=== PATIENT | female | born 1985 | race American Indian/Alaskan Native ===

== ENCOUNTER 2016-11-13 19:16 | Inpatient (IN) | payer MEDICAID ==
[2016-11-13 21:38] LABS: Basophils % (Auto) 1.4 % (0.0-1.8); Hematocrit 38.3 % (30.3-42.9); Hemoglobin 12.1 gm/dl (10.1-14.3); Mean Corpuscular HGB Conc 32 % (30-34); Mean Corpuscular Hemoglobin 31 pg (28-32); Mean Corpuscular Volume 97 fl (79-97); Platelet Count 286 K/mm3 (140-440); Red Blood Count 3.93 M/mm3 (3.65-5.03); Red Cell Distribution Width 17.8 % (13.2-15.2); White Blood Count 8.3 K/mm3 (4.5-11.0)
[2016-11-13 22:07] LABS: Albumin 3.7 g/dL (3.9-5); BUN/Creatinine Ratio 5.85; Bilirubin,Total 0.3 mg/dL (0.1-1.2); Calcium 8.4 mg/dL (8.4-10.2); Chloride 96.5 mmol/L (98-107); Total Protein 7.3 g/dL (6.3-8.2)
[2016-11-14] MEDS ORDERED: PROVENTIL IH ONE ×2 (03:51→04:01)
[2016-11-14] MEDS ORDERED: CALCIUM GLUCONATE 1,000 MG in NACL 0.9% 100 ML IV ONE (03:51)
[2016-11-14] MEDS ORDERED: D50W (25GM) IV ONE ×3 (03:52→07:24)
[2016-11-14] MEDS ORDERED: SODIUM BICARBONATE IV ONE (04:00)
[2016-11-14] MEDS ORDERED: SODIUM BICARBONATE 50 MEQ in NACL 0.9% 1000 ML 1,000 ML IV SCH (04:00)
--- NOTE | 2016-11-14 04:00 | Emergency Department Report ---
HPI - General Chief Complaint: Chest Pain Time Seen by Provider: 11/14/16 03:50 - HPI HPI: Room 23 The patient is a 31-year-old female presenting with a chief complaint of chest pain and shortness of breath. The patient has a history of end-stage renal disease and only received dialysis every Sunday and Sunday. The patient states she was not able to receive dialysis 2 days ago (Sunday secondary to the inclement weather. The patient states yesterday she developed left-sided chest pain that was sharp and intermittent in nature. Patient also developed intermittent shortness of breath. Location: Left chest Duration: Intermittent Since yesterday Quality: Sharp Severity: Currently 0/10 Modifying factors: [see above] Context: [see above] Mode of transportation: Unknown ED Past Medical Hx - Past Medical History Previous Medical History?: Yes Hx Hypertension: Yes Hx Heart Attack/AMI: Yes (one stent 2011) Hx Congestive Heart Failure: Yes Hx Renal Disease: Yes (hemodialysis ) Hx Sickle Cell Disease: ( ) Hx Arthritis: Yes Additional medical history: Lupus - Surgical History Past Surgical History?: Yes Hx Coronary Stent: Yes Hx Cholecystectomy: Yes Additional Surgical History: bilat total hips, right av fistula, - Family History Family history: no significant - Social History Smoking Status: Never Smoker Substance Use Type: None - Medications Home Medications: Home Medications Medication Instructions Recorded Confirmed Last Taken Type Aspirin [Aspirin TAB] 325 mg PO QDAY #30 tablet 06/24/15 09/26/16 1 Day Ago Rx Clopidogrel [Plavix] 75 mg PO DAILY #30 tablet 06/24/15 09/26/16 1 Day Ago Rx Sevelamer HCl [Renagel] 800 mg PO TIDWM #30 tablet 06/24/15 09/26/16 1 Day Ago Rx Carvedilol [Coreg] 25 mg PO BID #60 tablet 07/29/15 09/26/16 1 Day Ago Rx Hydroxychloroquine [Plaquenil] 200 mg PO QDAY tablet 07/29/15 09/26/16 1 Day Ago Rx cloNIDine [Catapres] 0.3 mg PO TID 30 Days 07/29/15 09/26/16 1 Day Ago Rx predniSONE [Deltasone] 10 mg PO QAM 09/23/15 09/26/16 1 Day Ago History Famotidine [Pepcid] 20 mg PO BID #60 tablet 09/26/16 Unknown Rx ED Review of Systems ROS: Stated complaint: CHEST PAIN Other details as noted in HPI Comment: All other systems reviewed and negative Constitutional: denies: chills, fever Eyes: denies: eye pain, eye discharge, vision change ENT: denies: ear pain, throat pain Respiratory: shortness of breath Cardiovascular: chest pain Endocrine: no symptoms reported Gastrointestinal: denies: abdominal pain, nausea, diarrhea Genitourinary: denies: urgency, dysuria, discharge Musculoskeletal: denies: back pain, joint swelling, arthralgia Skin: denies: rash, lesions Neurological: denies: headache, weakness, paresthesias Psychiatric: denies: anxiety, depression Hematological/Lymphatic: denies: easy bleeding, easy bruising Physical Exam - Physical Exam Vital Signs: Vital Signs 11/13/16 20:19 Temperature 98.0 F Pulse Rate 85 Respiratory 18 Rate Blood Pressure 161/113 O2 Sat by Pulse 100 Oximetry Physical Exam: GENERAL: The patient is well-developed well-nourished female lying on stretcher appearing to be in mild discomfort. [] HEENT: Normocephalic. Atraumatic. Extraocular motions are intact. Patient has moist mucous membranes. NECK: Supple. Trachea midline CHEST/LUNGS: Clear to auscultation. There is no respiratory distress noted. HEART/CARDIOVASCULAR: Regular. There is no tachycardia. There is no gallop rub or murmur. ABDOMEN: Abdomen is soft, nontender. Patient has normal bowel sounds. There is no abdominal distention. SKIN: There is no rash. There is no edema. There is no diaphoresis. NEURO: The patient is awake, alert, and oriented. The patient is cooperative. The patient has normal speech MUSCULOSKELETAL: There is no evidence of acute injury. ED Course Vital Signs 11/13/16 20:19 Temperature 98.0 F Pulse Rate 85 Respiratory 18 Rate Blood Pressure 161/113 O2 Sat by Pulse 100 Oximetry - Consultations Consultation #1: 11/14/16 04:00 Nephrology paged 04:00- H discussed with Dr. Molina. Will arrange for stat hemodialysis. Recommends giving Kayexalate 45 g in addition to previously ordered medications 11/14/16 04:02 ED Medical Decision Making - Lab Data Result diagrams: 11/13/16 21:17 11/13/16 21:17 Laboratory Tests 11/13/16 11/13/16 21:17 21:17 WBC 8.3 RBC 3.93 Hgb 12.1 Hct 38.3 MCV 97 MCH 31 MCHC 32 RDW 17.8 H Plt Count 286 Lymph % (Auto) 31.3 [place] % (Auto) 10.7 H Eos % (Auto) 1.0 Baso % (Auto) 1.4 Lymph # 2.6 Dickinson # 0.9 H Eos # 0.1 Baso # 0.1 Seg Neutrophils % 55.6 Seg Neutrophils # 4.6 Sodium 141 Potassium 8.0 H* Chloride 96.5 L Carbon Dioxide 23 Anion Gap 30 BUN 75 H Creatinine 12.8 H Estimated GFR 4 BUN/Creatinine Ratio 5.85 Glucose 80 Calcium 8.4 Total Bilirubin 0.3 AST 16 ALT 10 Alkaline Phosphatase 141 H Total Creatine Kinase 66 Troponin T 0.044 H Total Protein 7.3 Albumin 3.7 L Albumin/Globulin Ratio 1.0 Triglycerides 270 H Cholesterol 214 H LDL Cholesterol Direct 122 HDL Cholesterol 38 L Cholesterol/HDL Ratio 5.63 - EKG Data -: EKG Interpreted by Me EKG shows normal: sinus rhythm Rate: normal - EKG Data When compared to previous EKG there are: no significant change Interpretation: other (slightly peaked T waves) - Radiology Data Radiology results: image reviewed (chest x-ray) interpreted by me: X-ray-no focal infiltrates, no pneumothorax - Differential Diagnosis ACS, end-stage renal disease, hyperkalemia, Critical Care Time: Yes Critical care time in (mins) excluding proc time.: 30 Critical care attestation.: If time is entered above; I have spent that time in minutes in the direct care of this critically ill patient, excluding procedure time. ED Disposition Clinical Impression: ESRD needing dialysis, Acute hyperkalemia, Chest pain in adult Disposition: OP ADMITTED IP TO THIS HOSP Is pt being admited?: Yes Does the pt Need Aspirin: No Condition: Serious Instructions: Chest Pain (ED) Referrals: EDGARD MUNOZ [Other] - 3-5 Days Time of Disposition: 04:10 (hospitalist paged)
[2016-11-14] MEDS ORDERED: KAYEXALATE PO ONE (04:03)
--- NOTE | 2016-11-14 04:59 | History and Physical Report ---
History of Present Illness Date of examination: 11/14/16 History of present illness: 29-year-old woman with a history of CAD, hypertension, CHF, hypertension, lupus , end-stage renal disease on dialysis, Sunday, and Sunday came to the emergency room with complaints of chest pain. Pain is in the left substernal area which she describes as a sharp pain, intermittent in nature lasting for 5 minutes, intensity 5/10, no radiatiion, and she cannot identify exacerbating or relieving factors. She took advil without relief. She admits to nausea, vomiting, shortness of breath, no diaphoresis or palpitation. Old records reviewed showed she had a cardiac cath in 2014 which showed patent stent. Her lasty dialysis was . Patient denies any abdominal pain, no hematochezia. No dysuria or frequency or rash or pruritus or anxiety or depression or seizure or focal weakness. No hot or cold intolerance or polydipsia polyuria, no easy bruisability or bleeding from mucosal membranes. No fever no chills, no earache or tinnitus. Other review of system is negative. PAST SURGICAL HISTORY: AV fistula, hip replacement 3, cholecystectomy, hernia repair, SOCIAL HISTORY: Denies alcohol, tobacco, drugs FAMILY HISTORY: Hypertension, diabetes Medications and Allergies Allergies Allergy/AdvReac Type Severity Reaction Status Date / Time hydrocodone bitartrate Allergy Itching Verified 05/15/16 02:00 [From Vicodin] morphine Allergy Itching Verified 05/15/16 02:00 tramadol Allergy Hives Verified 05/15/16 02:00 metoclopramide HCl AdvReac Unknown Verified 05/15/16 02:00 [From Reglan] Home Medications Medication Instructions Recorded Confirmed Last Taken Type Aspirin [Aspirin TAB] 325 mg PO QDAY #30 tablet 06/24/15 09/26/16 1 Day Ago Rx Clopidogrel [Plavix] 75 mg PO DAILY #30 tablet 06/24/15 09/26/16 1 Day Ago Rx Sevelamer HCl [Renagel] 800 mg PO TIDWM #30 tablet 06/24/15 09/26/16 1 Day Ago Rx Carvedilol [Coreg] 25 mg PO BID #60 tablet 07/29/15 09/26/16 1 Day Ago Rx Hydroxychloroquine [Plaquenil] 200 mg PO QDAY tablet 07/29/15 09/26/16 1 Day Ago Rx cloNIDine [Catapres] 0.3 mg PO TID 30 Days 07/29/15 09/26/16 1 Day Ago Rx predniSONE [Deltasone] 10 mg PO QAM 09/23/15 09/26/16 1 Day Ago History Famotidine [Pepcid] 20 mg PO BID #60 tablet 09/26/16 Unknown Rx Exam - Physical Exam Narrative exam: Gen. appearance: Patient lying in bed, no apparent distress HEENT: Normocephalic, atraumatic, pupils equally round and reactive to light, extraocular movement intact, and no sclericterus,. No JVD or thyromegaly or nodule,neck supple, no carotid bruit ,mucous membranes moist, no exudate or erythema Heart: S1, S2, regular rate and rhythm Lungs: Clear to auscultation bilaterally, breathing comfortable Abdomen: Positive bowel sounds, nontender, nondistended, no organomegaly Extremity: No edema, cyanosis, clubbing Skin: No rash, nodules, warm, dry Neuro: Oriented 3, cranial nerves II-12 intact, speech is fluent, motor and sensory intact - Constitutional Vitals: Temp Pulse Resp BP Pulse Ox 98.0 F 68 16 161/113 100 11/13/16 20:19 11/14/16 04:20 11/14/16 04:20 11/13/16 20:19 11/13/16 20:19 Results - Labs CBC & Chem 7: 11/13/16 21:17 11/13/16 21:17 Labs: Abnormal lab results 11/13/16 11/13/16 Range/Units 21:17 21:17 RDW 17.8 H (13.2-15.2) % [place] % (Auto) 10.7 H (0.0-7.3) % [place] # 0.9 H (0.0-0.8) K/mm3 Potassium 8.0 H* (3.6-5.0) mmol/L Chloride 96.5 L (98-107) mmol/L BUN 75 H (7-17) mg/dL Creatinine 12.8 H (0.7-1.2) mg/dL Alkaline Phosphatase 141 H (35-129) units/L Troponin T 0.044 H (0.00-0.029) ng/mL Albumin 3.7 L (3.9-5) g/dL Triglycerides 270 H (2-149) mg/dL Cholesterol 214 H (50-199) mg/dL HDL Cholesterol 38 L (40-59) mg/dL - Imaging and Cardiology EKG: image reviewed (nsr, 86, peaked t, read by me) Chest x-ray: image reviewed (nad,rad by me) Assessment and Plan Severe Hyperkalemia needing urgent dialysis ESRD, need dialysis Unstable angina CAD Hypertension, uncontrolled Lupus CHF, stable Admit to medicine Renal is consulted for emergent dialysis, status post hyperkalemia cocktail Give iv dilaudid, asa, consult cardiology Check cardiac enzymes, stress test Continue appropiate outpatient medications Start dvt prophalaxis
[2016-11-14] MEDS ORDERED: DULCOLAX PR PRN (06:20)
[2016-11-14] MEDS ORDERED: TYLENOL PO PRN (06:20)
--- NOTE | 2016-11-14 06:33 | Admit Criteria Form ---
Admission Criteria Documentation: HYPONATREMIA; HYPERNATREMIA; HYPOKALEMIA; HYPERKALEMIA; HYPOCALCEMIA; HYPERCALCEMIA Clinical Indications for Inpatient Care (Place 'X' for any and all applicable criteria): Ongoing inpatient care may be indicated for ANY ONE of the following [G](1)(2)(3 )(5): [ ]I. Hyponatremia with ANY ONE of the following: [ ]a) Sodium less than 130 mEq/L (mmol/L) (new) (6)(22) [ ]b) Sodium less than 135 mEq/L (mmol/L) with ANY ONE of the following: [ ]i) Severe medical etiology requiring inpatient management (eg, heart failure, hypovolemia) [ ]ii) Altered mental status [ ]iii) Seizures [ ]II. Hypernatremia with ANY ONE of the following: [ ]a) Sodium greater than 155 mEq/L (mmol/L) [ ]b) Sodium greater than 150 mEq/L (mmol/L) with ANY ONE of the following: [ ] i) Altered mental status [ ]ii) Seizures [ ]iii) Severe medical etiology (eg, hypovolemia, diabetes insipidus) [ ]iv) Severe weakness [ ]v) Severe medical etiology (eg, hemolysis, infection, drug overdose) [ ]III. Hypokalemia with ANY ONE of the following: [ ]a) Potassium less than 2.5 mEq/L (mmol/L) despite outpatient and emergency treatment [ ]b) Potassium less than 3.0 mEq/L (mmol/L) with ANY ONE of the following: [ ]i) Weakness [ ]ii) Cardiac abnormality (eg, arrhythmia, conduction disturbance) [ ]iii) Cardiac ischemia [ ]iv) Ileus [ ]v) Ongoing medical cause requiring inpatient management. ( e.g., acute renal wasting, SIADH) [ ]vi) Other severe symptoms [X ] IV. Hyperkalemia with ANY ONE of the following: [X ]a) Potassium greater than 6.5 mEq/L (mmol/L) [ ]b) Potassium greater than 5 mEq/L (mmol/L) with ANY ONE of the following: [ ]i) Severe ECG findings [H] [ ]ii) Acute worsening of renal failure (creatinine greater than 2.5 mg/dL (221 micromoles/L) or significant elevation for age and size) [ ] V. Hypocalcemia with ANY ONE of the following: [ ]a) Calcium less than 7 mg/dL (1.75 mmol/L) despite outpatient and emergency treatment(19) [ ]b) Calcium less than 8 mg/dL (2 mmol/L) with significant symptoms or findings; examples include: [ ]i) Cardiac abnormality (eg, arrhythmia or conduction disturbance) [ ]ii) Altered mental status [ ]iii) Seizures [ ]iv) Breathing difficulty [ ]v) Muscle spasms [ ]. Hypercalcemia with ANY ONE of the following: [ ]a) Calcium greater than 14 mg/dL (3.5 mmol/L) [ ]b) Calcium greater than 12 mg/dL (3 mmol/L) with ANY ONE of the following: [ ]i) Significant dehydration or hypovolemia as indicated by ANY ONE of the following(2): [ ]1. Clinically significant dehydration as indicated by ANY ONE of the following: [ ]A. Acute loss of weight from baseline (5% of body weight in adults, 9% in pediatric patients) [ ]B. Hemodynamic instability [ ]C. Acute renal failure [ ]D. Serum sodium greater than 150 mEq/L (mmol/L) [ ]2) Dehydration that is persistent indicated by ALL of the following: [ ]A. Oral rehydration therapy not tolerated or insufficient to adequately correct dehydration [ ]B. Appropriate intravenous treatment (eg, fluids ) does not readily correct dehydration ie, after 12 to 24 hours of treatment) [ ]ii) Significant symptoms or findings; examples include: [ ]1) Altered mental status [ ]2) Cardiac abnormality (eg, arrhythmia, conduction disturbance) [ ]3) Cardiac abnormality (eg, arrhythmia, conduction disturbance) The original [email or web address] content created by [employer] has been revised. The portions of the content which have been revised are identified through the use of italic text or in bold, and [facility] has neither reviewed nor approved the modified material. All other unmodified content is copyright [facility] Please see references footnoted in the original [facility] [employer] edition 2016 Admission Criteria Met: Yes
[2016-11-14] MEDS: DILAUDID IV PRN ×4 (06:38→19:59)
[2016-11-14] MEDS: ZOFRAN IV PRN (06:38)
[2016-11-14 06:45] LABS: Bilirubin,Urine NEG (Negative); Blood,Urine LG (Negative); Ketones,Urine NEG (Negative); Leukocyte Esterase,Urine TR (Negative); Nitrite,Urine NEG (Negative); Urobilinogen,Urine < 2.0 mg/dL (<2.0)
--- NOTE | 2016-11-14 07:47 | XRay Report ---
AP CHEST: HISTORY: chest pain AP view of the chest demonstrates a normal mediastinal and cardiac contour with clear lungs and normal bony and soft tissue structures. IMPRESSION: Unremarkable AP chest.
[2016-11-14] MEDS ORDERED: NON-FORMULARY (Sevelamer Hcl [Renagel] 800 MG) PO SCH (08:00)
--- NOTE | 2016-11-14 08:23 | Event Note ---
Date: 11/14/16 Patient seen and evaluated medical records reviewed Admitted this morning with chest pain and worsening shortness of breath Schedule for hemodialysis today and stress test tomorrow to rule out reversible ischemia Agreed with current management, plan of care discussed with the patient as well as the nurse
[2016-11-14 09:15] LABS: BUN/Creatinine Ratio 5.95; Calcium 8.5 mg/dL (8.4-10.2); Chloride 95.9 mmol/L (98-107)
[2016-11-14 09:19] LABS: Potassium 6.6 mmol/L (3.6-5.0)
[2016-11-14 09:35] LABS: Creatine Kinase MB 1.6 ng/mL (0.0-4.0)
--- NOTE | 2016-11-14 09:59 | Consultation ---
History of Present Illness Consult date: 11/14/16 Requesting physician: MILAGROS HERNANDEZ Consult reason: chest pain History of present illness: The patient is a 31 year old female with a history of CAD s/p PCI, HTN, ESRD on HD, lupus who presented with complaints of intermittent left sided chest pain that began yesterday. The pain is non-radiating, described as "sharp." Associated with shortness of breath, nausea, vomiting and diaphoresis. She missed dialysis on Sunday due to the weather. Potassium on admission was 8.0. Troponin level is mildly elevated. In 06/2014, she underwent cardiac cath and PCI of 90% mid LAD lesion with a STEVEN at [facility]. Repeat cath in 06/2015 showed patent LAD stent and otherwise normal coronaries. Echo done 08/2016 showed EF 55-60%, impaired relaxation, RVSP 38mmHg. Past History Past Medical History: CAD, dialysis, ESRD, hypertension, other (Lupus) Past Surgical History: cholecystectomy, , hernia repair, PTCA, Other ( 3 hip surgeries, lymph node removal, AV fistula) Social history: denies: smoking, alcohol abuse, prescription drug abuse, IV drug use Family history: no significant family history Medications and Allergies Allergies Allergy/AdvReac Type Severity Reaction Status Date / Time hydrocodone bitartrate Allergy Itching Verified 05/15/16 02:00 [From Vicodin] morphine Allergy Itching Verified 05/15/16 02:00 tramadol Allergy Hives Verified 05/15/16 02:00 metoclopramide HCl AdvReac Unknown Verified 05/15/16 02:00 [From Reglan] Home Medications Medication Instructions Recorded Confirmed Last Taken Type Aspirin [Aspirin TAB] 325 mg PO QDAY #30 tablet 06/24/15 09/26/16 1 Day Ago Rx Clopidogrel [Plavix] 75 mg PO DAILY #30 tablet 06/24/15 09/26/16 1 Day Ago Rx Sevelamer HCl [Renagel] 800 mg PO TIDWM #30 tablet 06/24/15 09/26/16 1 Day Ago Rx Carvedilol [Coreg] 25 mg PO BID #60 tablet 07/29/15 09/26/16 1 Day Ago Rx Hydroxychloroquine [Plaquenil] 200 mg PO QDAY tablet 07/29/15 09/26/16 1 Day Ago Rx cloNIDine [Catapres] 0.3 mg PO TID 30 Days 07/29/15 09/26/16 1 Day Ago Rx predniSONE [Deltasone] 10 mg PO QAM 09/23/15 09/26/16 1 Day Ago History Famotidine [Pepcid] 20 mg PO BID #60 tablet 09/26/16 Unknown Rx Active Meds: Active Medications Acetaminophen (Tylenol) 650 mg PO Q4H PRN PRN Reason: Pain MILD(1-3)/Fever >100.5/MEJIA Aspirin (Aspirin) 325 mg PO QDAY [facility] Bisacodyl (Dulcolax) 10 mg [place] QDAY PRN PRN Reason: Constipation unrelieved by [facility] Carvedilol (Coreg) 25 mg PO BID [facility] Clonidine HCl (Catapres) 0.3 mg PO TID [facility] Clopidogrel Bisulfate (Plavix) 75 mg PO DAILY [facility] Enoxaparin Sodium (Lovenox) 30 mg SUB-Q QDAY [facility] Famotidine (Pepcid) 20 mg PO QDAY [facility] Hydromorphone HCl (Dilaudid) 1 mg IV Q4H PRN PRN Reason: pain Last Admin: 11/14/16 06:38 Dose: 1 mg Hydroxychloroquine Sulfate (Plaquenil) 200 mg PO QDAY [facility] Ondansetron HCl (Zofran) 4 mg IV Q8H PRN PRN Reason: N/V unrelieved by Reglan Last Admin: 11/14/16 06:38 Dose: 4 mg Prednisone (Deltasone) 10 mg PO QAM [facility] Sevelamer Carbonate (Renvela) 800 mg PO TIDWM [facility] Review of Systems Constitutional: no fever, no chills Ears, nose, mouth and throat: no nasal congestion, no nasal discharge, no sinus pressure Cardiovascular: chest pain, shortness of breath, no palpitations Respiratory: shortness of breath, no cough, no congestion, no wheezing Gastrointestinal: nausea, vomiting, diarrhea, no abdominal pain Genitourinary Female: no dysuria, no urgency Musculoskeletal: no neck stiffness, no neck pain, no myalgias Integumentary: no rash, no pruritis Neurological: no parathesias, no numbness, no tingling, no headaches Endocrine: no cold intolerance, no heat intolerance Hematologic/Lymphatic: no easy bruising, no easy bleeding Allergic/Immunologic: no urticaria, no wheezing Physical Examination Vital Signs Temp Pulse Resp BP Pulse Ox 98.0 F 85 18 161/113 100 11/13/16 20:19 11/13/16 20:19 11/13/16 20:19 11/13/16 20:19 11/13/16 20:19 General appearance: no acute distress HEENT: Positive: Normocephaly, Mucus Membranes Moist Neck: Positive: neck supple, trachea midline Cardiac: Positive: Reg Rate and Rhythm, S1/S2, Systolic Murmur Lungs: Positive: clear to auscultation Neuro: Positive: Grossly Intact Abdomen: Positive: Soft, Active Bowel Sounds. Negative: Tender Skin: Positive: Clear. Negative: Rash Musculoskeletal: Normal Range of Motion Extremities: Present: edema (trace-bilateral lower legs) Results 11/13/16 21:17 11/14/16 08:32 Cardiac Enzymes 11/14/16 Range/Units 08:32 CK-MB (CK-2) 1.6 (0.0-4.0) ng/mL Comprehensive Metabolic Panel 11/14/16 Range/Units 08:32 Potassium 6.6 H* (3.6-5.0) mmol/L Carbon Dioxide 17 L (22-30) mmol/L BUN 75 H (7-17) mg/dL Creatinine 12.6 H (0.7-1.2) mg/dL Glucose 103 H (65-100) mg/dL Calcium 8.5 (8.4-10.2) mg/dL - Imaging and Cardiology Echo: report reviewed (08/2016: EF 55-60%, impaired relaxation, RVSP 38mmHg) EKG: image reviewed EKG interpretations - Telemetry EKG Rhythm: Sinus Rhythm - EKG Sinus rhythms and dysrhythmias: sinus rhythm Assessment and Plan Chest pain Lexiscan thallium stress test in am NSTEMI type II troponin leak likely due to ESRD Hyperkalemia dialysis per nephrology CAD s/p PCI of mid LAD 06/2014 [facility] 06/2015: patent LAD stent, otherwise normal coronaries Echo 08/2016: EF 55-60%, impaired relaxation, RVSP 38 mmHg continue ASA, Plavix, add Lipitor Hypertension continue coreg, clonidine Hyperlipidemia add Lipitor Lupus Awaiting emergent dialysis. Will proceed with stress test in am if potassium level is adequately corrected. The patient has been seen in conjunction with Dr. Dooley who agrees with the assessment and plan of care. Thank you Dr. Phan for allowing us to participate in the care of this patient.
[2016-11-14] MEDS ORDERED: DELTASONE PO SCH (10:00)
[2016-11-14] MEDS ORDERED: PEPCID PO SCH (10:00)
[2016-11-14] MEDS: CATAPRES PO SCH ×3 (10:18→20:00)
[2016-11-14] MEDS: RENVELA PO SCH ×3 (10:18→16:24)
--- NOTE | 2016-11-14 10:21 | Consultation ---
History of Present Illness - Reason for Consult Consult date: 11/14/16 end stage renal disease, hyperkalemia - History of Present Illness patient with h/o ESRD on HD for the last 8 years every TTS last treatment was , she was not able to make to her last treatment due to the weather, she came to the ED yesterday because she missed her last treatment and feeling SOB, in the ED she was noted to have elevated BP and hyperkalemia, she was treated medically for hyperkalemia and renal consult was requested. Past History Past Medical History: ESRD, hypertension Medications and Allergies Allergies Allergy/AdvReac Type Severity Reaction Status Date / Time hydrocodone bitartrate Allergy Itching Verified 05/15/16 02:00 [From Vicodin] morphine Allergy Itching Verified 05/15/16 02:00 tramadol Allergy Hives Verified 05/15/16 02:00 metoclopramide HCl AdvReac Unknown Verified 05/15/16 02:00 [From Reglan] Home Medications Medication Instructions Recorded Confirmed Last Taken Type Aspirin [Aspirin TAB] 325 mg PO QDAY #30 tablet 06/24/15 09/26/16 1 Day Ago Rx Clopidogrel [Plavix] 75 mg PO DAILY #30 tablet 06/24/15 09/26/16 1 Day Ago Rx Sevelamer HCl [Renagel] 800 mg PO TIDWM #30 tablet 06/24/15 09/26/16 1 Day Ago Rx Carvedilol [Coreg] 25 mg PO BID #60 tablet 07/29/15 09/26/16 1 Day Ago Rx Hydroxychloroquine [Plaquenil] 200 mg PO QDAY tablet 07/29/15 09/26/16 1 Day Ago Rx cloNIDine [Catapres] 0.3 mg PO TID 30 Days 07/29/15 09/26/16 1 Day Ago Rx predniSONE [Deltasone] 10 mg PO QAM 09/23/15 09/26/16 1 Day Ago History Famotidine [Pepcid] 20 mg PO BID #60 tablet 09/26/16 Unknown Rx Active Meds: Active Medications Acetaminophen (Tylenol) 650 mg PO Q4H PRN PRN Reason: Pain MILD(1-3)/Fever >100.5/MEJIA Aspirin (Aspirin) 325 mg PO QDAY ADIA Bisacodyl (Dulcolax) 10 mg VA QDAY PRN PRN Reason: Constipation unrelieved by MOM Carvedilol (Coreg) 25 mg PO BID ADIA Clonidine HCl (Catapres) 0.3 mg PO TID ADIA Clopidogrel Bisulfate (Plavix) 75 mg PO DAILY ADIA Enoxaparin Sodium (Lovenox) 30 mg SUB-Q QDAY ADIA Famotidine (Pepcid) 20 mg PO QDAY ADIA Hydromorphone HCl (Dilaudid) 1 mg IV Q4H PRN PRN Reason: pain Last Admin: 11/14/16 06:38 Dose: 1 mg Hydroxychloroquine Sulfate (Plaquenil) 200 mg PO QDAY ADIA Ondansetron HCl (Zofran) 4 mg IV Q8H PRN PRN Reason: N/V unrelieved by Reglan Last Admin: 11/14/16 06:38 Dose: 4 mg Prednisone (Deltasone) 10 mg PO QAM ADIA Sevelamer Carbonate (Renvela) 800 mg PO TIDWM ADIA Review of Systems All systems: negative (weakness, SOB) Exam - Vital Signs Vital signs: Vital Signs Temp Pulse Resp BP Pulse Ox 98.0 F 85 18 161/113 100 11/13/16 20:19 11/13/16 20:19 11/13/16 20:19 11/13/16 20:19 11/13/16 20:19 - General Appearance General appearance: well-developed, well-nourished, obese EENT: ATNC, PERRL, mucous membranes moist Neck: Present: neck supple. Absent: Bruit Respiratory: Clear to Ascultation Heart: regular, S1S2 Gastrointestinal: Present: normoactive bowel sounds, obese. Absent: tenderness , distended, masses Integumentary: no rash, warm and dry Neurologic: no focal deficit, no asterixis, alert and oriented x3 Musculoskeletal: Present: other (+ thrill and bruit R AVF, no edema in BLE) Psychiatric: mood/affect appropriate, cooperative Results - Lab Results 11/13/16 21:17 11/14/16 08:32 Most recent lab results Calcium 8.5 mg/dL (8.4-10.2) 11/14/16 08:32 Assessment and Plan (1) ESRD on HD STAT hD ordered for clearance and volume removal, UF goal 4-5 L as tolerated will assess dialysis needs daily, most likely will need another tx tomorrow renally dose meds renal diet strict I&O daily weights (2) Hyperkalemia STAT HD as above low K diet (3) HTN UF as above will adjust BP meds as neede
[2016-11-14] MEDS: COREG PO SCH ×2 (11:00→21:56)
[2016-11-14] MEDS ORDERED: BENADRYL IV ONE (11:30)
[2016-11-14] MEDS ORDERED: BENADRYL PO PRN (16:07)
[2016-11-14] MEDS: PLAQUENIL PO SCH (16:23)
[2016-11-14] MEDS: LOVENOX SUB-Q SCH (16:23)
[2016-11-14] MEDS: DELTASONE PO SCH (16:23)
[2016-11-14] MEDS: PLAVIX PO SCH (16:24)
[2016-11-14] MEDS: PEPCID PO SCH (16:24)
[2016-11-14 16:26] LABS: Creatine Kinase MB 1.6 ng/mL (0.0-4.0)
[2016-11-14] MEDS: PERCOCET 5/325 PO PRN ×2 (16:47→23:09)
[2016-11-15] MEDS: DILAUDID IV PRN ×5 (00:18→22:30)
[2016-11-15] MEDS: ZOFRAN IV PRN ×2 (04:29→22:31)
[2016-11-15 06:54] LABS: Hematocrit 39.2 % (30.3-42.9); Hemoglobin 12.5 gm/dl (10.1-14.3); Mean Corpuscular HGB Conc 32 % (30-34); Mean Corpuscular Hemoglobin 31 pg (28-32); Mean Corpuscular Volume 98 fl (79-97); Red Blood Count 4.02 M/mm3 (3.65-5.03)
[2016-11-15 07:29] LABS: BUN/Creatinine Ratio 4.38; Calcium 9.3 mg/dL (8.4-10.2); Chloride 95.1 mmol/L (98-107)
[2016-11-15 07:30] LABS: Potassium 8.1 mmol/L (3.6-5.0)
--- NOTE | 2016-11-15 07:58 | Progress Note ---
Assessment and Plan Assessment and plan: --Severe Hyperkalemia Calcium chloride , Kayexalate , albuterol inhalation Hemodialysis --ESRD, on dialysis, nephrology following --Unstable angina Cardiology following, stress test rescheduled secondary to hyperkalemia --History of CAD, stable --Hypertension, uncontrolled continue current antihypertensives and when necessary medications, --Lupus; stable --DVT prophylaxis with heparin History Interval history: Patient seen and evaluated, he should schedule for stress test However in view of severe hypokalemia stress test was canceled Patient feels better denies any chest pain or shortness of breath Alert awake oriented 3 not in acute distress Hospitalist Physical - Constitutional Vitals: Temp Pulse Resp BP Pulse Ox 98.2 F 83 21 130/85 100 11/15/16 04:00 11/15/16 04:00 11/15/16 04:00 11/15/16 04:00 11/15/16 04:00 General appearance: Present: no acute distress, well-nourished - EENT Eyes: Present: PERRL, EOM intact - Neck Neck: Present: supple, normal ROM - Respiratory Respiratory effort: normal Respiratory: bilateral: diminished, rales, negative: rhonchi, wheezing - Cardiovascular Rhythm: regular Heart Sounds: Present: S1 & S2 - Extremities Extremities: no ischemia, pulses intact, pulses symmetrical Peripheral Pulses: within normal limits - Abdominal General gastrointestinal: soft, non-tender, non-distended, normal bowel sounds - Integumentary Integumentary: Present: clear, warm - Psychiatric Psychiatric: appropriate mood/affect, cooperative - Neurologic Neurologic: CNII-XII intact, moves all extremities Results - Labs CBC & Chem 7: 11/15/16 06:11 11/15/16 09:35 Labs: Laboratory Last Values WBC 8.3 K/mm3 (4.5-11.0) 11/13/16 21:17 RBC 4.02 M/mm3 (3.65-5.03) 11/15/16 06:11 Hgb 12.5 gm/dl (10.1-14.3) 11/15/16 06:11 Hct 39.2 % (30.3-42.9) 11/15/16 06:11 MCV 98 fl (79-97) H 11/15/16 06:11 MCH 31 pg (28-32) 11/15/16 06:11 MCHC 32 % (30-34) 11/15/16 06:11 RDW 18.0 % (13.2-15.2) H 11/15/16 06:11 Plt Count 286 K/mm3 (140-440) 11/13/16 21:17 Lymph % (Auto) Children[employer] Service Supervisor 11/15/16 06:11 [place] % (Auto) Children[employer]S Service Supervisor 11/15/16 06:11 Eos % (Auto) Children[employer]S Service Supervisor 11/15/16 06:11 Baso % (Auto) Children[employer]S Service Supervisor 11/15/16 06:11 Lymph # Children[employer]S Service Supervisor 11/15/16 06:11 [place] # Children'S Service Supervisor 11/15/16 06:11 Eos # Children'S Service Supervisor 11/15/16 06:11 Baso # Children[employer]S Service Supervisor 11/15/16 06:11 Seg Neutrophils % Children'S Service Supervisor 11/15/16 06:11 Seg Neutrophils # Children'S Service Supervisor 11/15/16 06:11 Sodium 135 mmol/L (137-145) L 11/15/16 06:11 Potassium 8.1 mmol/L (3.6-5.0) H* D 11/15/16 06:11 Chloride 95.1 mmol/L (98-107) L 11/15/16 06:11 Carbon Dioxide 18 mmol/L (22-30) L 11/15/16 06:11 Anion Gap 30 mmol/L 11/15/16 06:11 BUN 32 mg/dL (7-17) H 11/15/16 06:11 Creatinine 7.3 mg/dL (0.7-1.2) H 11/15/16 06:11 Estimated GFR 8 ml/min 11/15/16 06:11 BUN/Creatinine Ratio 4.38 % 11/15/16 06:11 Glucose 78 mg/dL (65-100) 11/15/16 06:11 POC Glucose 100 (70-105) 11/14/16 21:34 Calcium 9.3 mg/dL (8.4-10.2) 11/15/16 06:11 Total Bilirubin 0.3 mg/dL (0.1-1.2) 11/13/16 21:17 AST 16 units/L (5-40) 11/13/16 21:17 ALT 10 units/L (7-56) 11/13/16 21:17 Alkaline Phosphatase 141 units/L (35-129) H 11/13/16 21:17 Total Creatine Kinase 64 units/L (30-135) 11/14/16 15:43 CK-MB (CK-2) 1.6 ng/mL (0.0-4.0) 11/14/16 15:43 CK-MB (CK-2) Rel Index 2.5 (0-4) 11/14/16 15:43 Troponin T 0.051 ng/mL (0.00-0.029) H D 11/14/16 15:43 Total Protein 7.3 g/dL (6.3-8.2) 11/13/16 21:17 Albumin 3.7 g/dL (3.9-5) L 11/13/16 21:17 Albumin/Globulin Ratio 1.0 % 11/13/16 21:17 Triglycerides 270 mg/dL (2-149) H 11/13/16 21:17 Cholesterol 214 mg/dL (50-199) H 11/13/16 21:17 LDL Cholesterol Direct 122 mg/dL (50-130) 11/13/16 21:17 HDL Cholesterol 38 mg/dL (40-59) L 11/13/16 21:17 Cholesterol/HDL Ratio 5.63 % 11/13/16 21:17 Urine Color Red (Yellow) 11/14/16 06:13 Urine Turbidity Cloudy (Clear) 11/14/16 06:13 Urine pH 8.0 (5.0-7.0) H 11/14/16 06:13 Ur Specific [place] 1.010 (1.003-1.030) 11/14/16 06:13 Urine Protein 100 mg/dl mg/dL (Negative) 11/14/16 06:13 Urine Glucose (UA) Neg mg/dL (Negative) 11/14/16 06:13 Urine Ketones Neg mg/dL (Negative) 11/14/16 06:13 Urine Blood Lg (Negative) 11/14/16 06:13 Urine Nitrite Neg (Negative) 11/14/16 06:13 Urine Bilirubin Neg (Negative) 11/14/16 06:13 Urine Urobilinogen < 2.0 mg/dL (<2.0) 11/14/16 06:13 Ur Leukocyte Esterase Tr (Negative) 11/14/16 06:13 Urine WBC (Auto) 5.0 /HPF (0.0-6.0) 11/14/16 06:13 Urine RBC (Auto) 3.0 /HPF (0.0-6.0) 11/14/16 06:13 U Epithel Cells (Auto) 56.0 /HPF (0-13.0) H 11/14/16 06:13 Amorphous Crystals 3+ 11/14/16 06:13 Urine HCG, Qual Negative (Negative) 11/14/16 06:13
[2016-11-15] MEDS ORDERED: KAYEXALATE PO ONE (08:00)
[2016-11-15] MEDS: RENVELA PO SCH ×3 (08:08→17:59)
[2016-11-15] MEDS: CATAPRES PO SCH ×3 (08:08→21:15)
[2016-11-15] MEDS ORDERED: PROVENTIL IH ONE (08:30)
[2016-11-15] MEDS ORDERED: CALCIUM CHLORIDE 1,000 MG in NACL 0.9% 100 ML IV ONE (08:30)
--- NOTE | 2016-11-15 08:47 | Progress Note ---
Assessment and Plan Chest pain unable to complete stress test due to hyperkalemia NSTEMI type II troponin leak likely due to ESRD Hyperkalemia dialysis per nephrology CAD s/p PCI of mid LAD 06/2014 LHC 06/2015: patent LAD stent, otherwise normal coronaries Echo 08/2016: EF 55-60%, impaired relaxation, RVSP 38 mmHg continue ASA, Plavix, add Lipitor Hypertension continue coreg, clonidine Hyperlipidemia add Lipitor Lupus Unable to complete stress test this morning as potassium level remains elevated. Continue medical management. The patient has been seen in conjunction with Dr. Dooley who agrees with the assessment and plan of care. Subjective Date of service: 11/15/16 Principal diagnosis: chest pain Interval history: The patient is resting in bed. She continues to c/o chest pain. Sinus rhythm on the monitor. Unable to perform stress test this morning as potassium level remains high. Objective Last Vital Signs Temp 97.4 F L 11/15/16 08:00 Pulse 69 11/15/16 08:55 Resp 18 11/15/16 08:55 BP 119/79 11/15/16 08:00 Pulse Ox 98 11/15/16 08:52 - Physical Examination General: No Apparent Distress HEENT: Positive: Normocephaly, Mucus Membranes Moist Neck: Positive: neck supple, trachea midline Cardiac: Positive: Reg Rate and Rhythm, S1/S2 Lungs: Positive: clear to auscultation Neuro: Positive: Grossly Intact Abdomen: Positive: Soft, Active Bowel Sounds. Negative: Tender Skin: Positive: Clear. Negative: Rash Musculoskeletal: Normal Range of Motion Extremities: Present: edema (trace-bilateral lower legs) - Labs and Meds Cardiac Enzymes 11/14/16 11/14/16 Range/Units 08:32 15:43 CK-MB (CK-2) 1.6 1.6 (0.0-4.0) ng/mL CBC 11/15/16 Range/Units 06:11 RBC 4.02 (3.65-5.03) M/mm3 Hgb 12.5 (10.1-14.3) gm/dl Hct 39.2 (30.3-42.9) % Lymph # Vending Machine Operator [place] # Vending Machine Operator Eos # Vending Machine Operator Baso # Vending Machine Operator Comprehensive Metabolic Panel 11/14/16 11/15/16 Range/Units 08:32 06:11 Sodium 135 L (137-145) mmol/L Potassium 6.6 H* 8.1 H* D (3.6-5.0) mmol/L Chloride 95.1 L (98-107) mmol/L Carbon Dioxide 17 L 18 L (22-30) mmol/L BUN 75 H 32 H (7-17) mg/dL Creatinine 12.6 H 7.3 H (0.7-1.2) mg/dL Glucose 103 H 78 (65-100) mg/dL Calcium 8.5 9.3 (8.4-10.2) mg/dL - Imaging and Cardiology EKG: image reviewed Echo: report reviewed (08/2016: EF 55-60%, impaired relaxation, RVSP 38mmHg) - Telemetry EKG Rhythm: Sinus Rhythm - EKG Sinus rhythms and dysrhythmias: sinus rhythm
[2016-11-15 09:00] LABS: Blastocytes % (Manual) 0 %
[2016-11-15 09:01] LABS: Anisocytosis Few; Basophils % (Manual) 0 % (0.0-1.8); Eosinophils % (Manual) 0 % (0.0-4.3)
[2016-11-15 09:02] LABS: Diff Status Complete
[2016-11-15] MEDS: DELTASONE PO SCH (09:24)
[2016-11-15] MEDS: ASPIRIN PO SCH (09:25)
[2016-11-15] MEDS: PLAVIX PO SCH (09:25)
[2016-11-15] MEDS: PLAQUENIL PO SCH (09:25)
[2016-11-15] MEDS: COREG PO SCH ×2 (09:25→21:16)
[2016-11-15] MEDS: PEPCID PO SCH (09:25)
[2016-11-15] MEDS: LOVENOX SUB-Q SCH (09:25)
[2016-11-15 09:46] LABS: Platelet Count 244 K/mm3 (140-440); White Blood Count 11.1 K/mm3 (4.5-11.0)
[2016-11-15 10:14] LABS: BUN/Creatinine Ratio 4.66; Calcium 9.3 mg/dL (8.4-10.2); Chloride 94.3 mmol/L (98-107)
[2016-11-15 10:16] LABS: Potassium 7.9 mmol/L (3.6-5.0)
[2016-11-15] MEDS ORDERED: NACL 0.9% 1000 ML 100 ML IV PRN ×2 (11:44→17:56)
[2016-11-15] MEDS ORDERED: BENADRYL IV ONE (13:26)
--- NOTE | 2016-11-15 16:58 | Progress Note ---
Assessment and Plan - Patient Problems (1) ESRD (end stage renal disease) on dialysis Current Visit: No Status: Chronic Plan to address problem: Labs reviewed Hemodiaysis today for clearance and ultrafiltration HD prescription adjusted to [facility] [place] for hyperkalemia management Repeat serum potassium level at 1999 Assess need for HD on daily basis Renally dose medications Renal diet Maintain fluid restriction of 1 liter per day Obtain daily weight Strict intake and output Renal plan discussed with Dr Ortiz Continue supportive therapy (2) Hyperkalemia Current Visit: No Status: Acute Plan to address problem: Hemodialysis today for clearance and ultrafiltration HD [id number] adjusted to 2[facility] [place] Repeat serum potassium level tonight at 1999 (3) Hypertensive CKD, ESRD on dialysis Current Visit: Yes Status: Acute Plan to address problem: Continue on current anti-hypertensive regimen (4) Chest pain Current Visit: No Status: Acute Qualifiers: Chest pain type: unspecified Qualified Code(s): R07.9 - Chest pain, unspecified Plan to address problem: As per Cardiology management, unable to complete stress test secondary to hyperkalemia, follow up recs Subjective Date of service: 11/15/16 Principal diagnosis: chest pain Interval history: Patient seen in Hemodialysis Unit, no complaints voiced at this time. Patient states she had chest pain and shortness of breath earlier today, but states she feels better now. Objective - Vital Signs Vital signs: Vital Signs - 12hr 11/15/16 11/15/16 11/15/16 08:00 08:52 08:54 Temperature 97.4 F L Pulse Rate Pulse Rate [ 72 Left From Monitor] Pulse Rate [ 69 Throughout] Respiratory 18 Rate Respiratory 16 Rate [ Throughout] Blood Pressure Blood Pressure 119/79 [Left Arm] O2 Sat by Pulse 100 98 Oximetry 11/15/16 11/15/16 11/15/16 08:55 13:30 13:45 Temperature Pulse Rate 70 66 Pulse Rate [ Left From Monitor] Pulse Rate [ 69 Throughout] Respiratory Rate Respiratory 18 Rate [ Throughout] Blood Pressure 118/74 128/86 Blood Pressure [Left Arm] O2 Sat by Pulse Oximetry 11/15/16 11/15/16 11/15/16 14:00 14:03 14:15 Temperature 98 F Pulse Rate 68 70 69 Pulse Rate [ Left From Monitor] Pulse Rate [ Throughout] Respiratory 18 Rate Respiratory Rate [ Throughout] Blood Pressure 116/78 118/74 107/74 Blood Pressure [Left Arm] O2 Sat by Pulse Oximetry 11/15/16 11/15/16 11/15/16 14:30 14:45 15:00 Temperature Pulse Rate 69 70 70 Pulse Rate [ Left From Monitor] Pulse Rate [ Throughout] Respiratory Rate Respiratory Rate [ Throughout] Blood Pressure 108/73 98/63 89/57 Blood Pressure [Left Arm] O2 Sat by Pulse Oximetry 11/15/16 11/15/16 11/15/16 15:11 15:15 15:37 Temperature Pulse Rate 75 66 68 Pulse Rate [ Left From Monitor] Pulse Rate [ Throughout] Respiratory Rate Respiratory Rate [ Throughout] Blood Pressure 99/59 124/68 Blood Pressure [Left Arm] O2 Sat by Pulse Oximetry 11/15/16 11/15/16 11/15/16 15:45 16:00 16:15 Temperature Pulse Rate 72 80 74 Pulse Rate [ Left From Monitor] Pulse Rate [ Throughout] Respiratory Rate Respiratory Rate [ Throughout] Blood Pressure 114/74 104/80 118/78 Blood Pressure [Left Arm] O2 Sat by Pulse Oximetry 11/15/16 16:38 Temperature Pulse Rate 72 Pulse Rate [ Left From Monitor] Pulse Rate [ Throughout] Respiratory Rate Respiratory Rate [ Throughout] Blood Pressure 104/60 Blood Pressure [Left Arm] O2 Sat by Pulse Oximetry - General Appearance General appearance: well-developed (no acute distress) EENT: ATNC Neck: no JVD Respiratory: Present: Other (Lung sounds decreased bilaterally, unlabored) Cardiology: regular, S1S2, other (ACCESS: Right Arteriovenous shunt in use) Gastrointestinal: normoactive bowel sounds, no tenderness, no distended Integumentary: warm and dry (no rashes noted in inspected areas) Neurologic: alert and oriented x3 Musculoskeletal: other (trace edema to both lower extremities) Psychiatric: mood/affect appropriate, cooperative - Lab 11/15/16 06:11 11/15/16 09:35 Most recent lab results Calcium 9.3 mg/dL (8.4-10.2) 11/15/16 09:35
[2016-11-16] MEDS: DILAUDID IV PRN ×5 (03:10→23:12)
[2016-11-16] MEDS: CATAPRES PO SCH ×3 (09:18→21:42)
--- NOTE | 2016-11-16 10:06 | Progress Note ---
Assessment and Plan Chest pain unable to complete stress test due to hyperkalemia NSTEMI type II troponin leak likely due to ESRD Hyperkalemia dialysis per nephrology CAD s/p PCI of mid LAD 06/2014 LHC 06/2015: patent LAD stent, otherwise normal coronaries Echo 08/2016: EF 55-60%, impaired relaxation, RVSP 38 mmHg continue ASA, Plavix, Lipitor Hypertension continue coreg, clonidine Hyperlipidemia continue Lipitor Lupus Will plan to proceed with stress test when potassium level is adequately corrected. Continue medical management. The patient has been seen in conjunction with Dr. Dooley who agrees with the assessment and plan of care. Subjective Date of service: 11/16/16 Principal diagnosis: chest pain Interval history: The patient is resting in bed. She continues to c/o chest pain. Sinus rhythm on the monitor. Objective Last Vital Signs Temp 97.7 F 11/16/16 08:12 Pulse 78 11/16/16 08:12 Resp 18 11/16/16 08:12 BP 120/70 11/16/16 08:12 Pulse Ox 97 11/16/16 08:12 - Physical Examination General: No Apparent Distress HEENT: Positive: Normocephaly, Mucus Membranes Moist Neck: Positive: neck supple, trachea midline Cardiac: Positive: Reg Rate and Rhythm, S1/S2 Lungs: Positive: clear to auscultation Neuro: Positive: Grossly Intact Abdomen: Positive: Soft, Active Bowel Sounds. Negative: Tender Skin: Positive: Clear. Negative: Rash Musculoskeletal: Normal Range of Motion Extremities: Present: edema (trace-bilateral lower legs) - Labs and Meds Comprehensive Metabolic Panel 11/15/16 Range/Units 09:35 Sodium 138 (137-145) mmol/L Potassium 7.9 H* (3.6-5.0) mmol/L Chloride 94.3 L (98-107) mmol/L Carbon Dioxide 25 D (22-30) mmol/L BUN 35 H (7-17) mg/dL Creatinine 7.5 H (0.7-1.2) mg/dL Glucose 77 (65-100) mg/dL Calcium 9.3 (8.4-10.2) mg/dL - Imaging and Cardiology EKG: image reviewed Echo: report reviewed (08/2016: EF 55-60%, impaired relaxation, RVSP 38mmHg) - Telemetry EKG Rhythm: Sinus Rhythm - EKG Sinus rhythms and dysrhythmias: sinus rhythm
--- NOTE | 2016-11-16 10:22 | Progress Note ---
Assessment and Plan (1) ESRD (end stage renal disease) on dialysis Current Visit: No Status: Chronic Plan to address problem: HD today for clearance and volume removal Assess need for HD on daily basis Renally dose medications Renal diet Maintain fluid restriction of 1 liter per day Obtain daily weight Strict intake and output (2) Hyperkalemia Current Visit: No Status: Acute Plan to address problem: low K diet HD as above no repeated level available (3) Hypertensive CKD, ESRD on dialysis Current Visit: Yes Status: Acute Plan to address problem: Continue on current anti-hypertensive regimen (4) Chest pain Current Visit: No Status: Acute Qualifiers: Chest pain type: unspecified Qualified Code(s): R07.9 - Chest pain, unspecified Plan to address problem: As per Cardiology management Subjective Date of service: 11/16/16 Principal diagnosis: chest pain Interval history: seen during HD, tolerating Objective - Vital Signs Vital signs: Vital Signs - 12hr 11/15/16 11/16/16 11/16/16 23:00 00:45 04:55 Temperature 98.2 F 98.5 F Pulse Rate 8 L Pulse Rate [ Left Radial] Pulse Rate [ 80 80 Right Radial] Respiratory 18 18 Rate Blood Pressure 94/57 110/61 [Left Arm] O2 Sat by Pulse 98 100 Oximetry 11/16/16 11/16/16 06:05 08:12 Temperature 97.7 F Pulse Rate 75 Pulse Rate [ 78 Left Radial] Pulse Rate [ Right Radial] Respiratory 18 Rate Blood Pressure 120/70 [Left Arm] O2 Sat by Pulse 97 Oximetry - General Appearance General appearance: well-developed, well-nourished, obese EENT: ATNC, PERRL, mucous membranes moist Neck: no JVD, no carotid bruit Respiratory: Present: Clear to Ascultation Cardiology: regular, S1S2 Gastrointestinal: normoactive bowel sounds, hypoactive bowel sounds, absent bowel sounds, no tenderness, no distended Integumentary: no rash, warm and dry Neurologic: no focal deficit, no asterixis, alert and oriented x3 Musculoskeletal: deferred Psychiatric: mood/affect appropriate, cooperative - Lab 11/15/16 06:11 11/15/16 09:35 Most recent lab results Calcium 9.3 mg/dL (8.4-10.2) 11/15/16 09:35
[2016-11-16] MEDS ORDERED: NACL 0.9 (PRIMING MACHINE ONLY DIALYSIS) MC ONE (10:50)
[2016-11-16] MEDS ORDERED: BENADRYL ONE (10:50)
[2016-11-16] MEDS ORDERED: NACL 0.9% 1000 ML 100 ML IV PRN (11:25)
[2016-11-16] MEDS: BENADRYL IV PRN (11:40)
[2016-11-16] MEDS: RENVELA PO SCH ×2 (13:09→17:59)
[2016-11-16] MEDS: COREG PO SCH ×2 (14:05→21:42)
[2016-11-16] MEDS: ASPIRIN PO SCH (14:05)
[2016-11-16] MEDS: PLAQUENIL PO SCH (14:06)
[2016-11-16] MEDS: PEPCID PO SCH (14:06)
[2016-11-16] MEDS: LOVENOX SUB-Q SCH (14:06)
[2016-11-16] MEDS: DELTASONE PO SCH (14:06)
[2016-11-16] MEDS: PLAVIX PO SCH (14:06)
--- NOTE | 2016-11-16 17:15 | Progress Note ---
Assessment and Plan Assessment and plan: --NSTEMI type II Positive troponin secondary to end-stage renal disease --Chest pain; in view of risk factors patient could benefit by stress test However patient has persistent hyperkalemia, awaiting reasonable potassium levels cardiology following --End-stage renal disease on hemodialysis Patient will receive dialysis per schedule, nephrology following --History of coronary artery disease status post PCI in 2013 Heart In 2015 patents stent, normal left ventricular function ejection fraction Continue current cardiac medications aspirin and Plavix and statin --Hypertension; We will continue Coreg and clonidine and when necessary hydralazine --Dyslipidemia; stable on Lipitor --History of lupus stable --DVT prophylaxis with heparin Consults and recommendations noted and appreciated Closely monitor potassium levels, when reasonable, patient may have a stress test inpatient versus outpatient Possible discharge in 1-2 days if stable Plan of care discussed with the patient, her nurse as well as the case management--Severe Hyperkalemia Calcium chloride , Kayexalate , albuterol inhalation Hemodialysis History Interval history: Patient seen and evaluated medical records reviewed No new events reported by nursing staff Patient's potassium remained elevated in spite of hemodialysis Cardiology awaiting stress test when potassium levels are reasonable Patient denies any chest pain or shortness of breath Alert awake oriented 3 not in acute distress Hospitalist Physical - Constitutional Vitals: Temp Pulse Resp BP Pulse Ox 97.6 F 88 18 98/54 97 11/16/16 16:38 11/16/16 16:38 11/16/16 16:38 11/16/16 16:38 11/16/16 16:38 General appearance: Present: no acute distress, well-nourished - EENT Eyes: Present: PERRL, EOM intact - Neck Neck: Present: supple, normal ROM - Respiratory Respiratory effort: normal Respiratory: bilateral: diminished, negative: rales, rhonchi, wheezing - Cardiovascular Rhythm: regular Heart Sounds: Present: S1 & S2 - Extremities Extremities: no ischemia, pulses intact, pulses symmetrical Peripheral Pulses: within normal limits - Abdominal General gastrointestinal: soft, non-tender, non-distended, normal bowel sounds - Integumentary Integumentary: Present: clear, warm - Psychiatric Psychiatric: appropriate mood/affect, cooperative - Neurologic Neurologic: CNII-XII intact, moves all extremities Results - Labs CBC & Chem 7: 11/15/16 06:11 11/15/16 09:35 Labs: Laboratory Last Values WBC 11.1 K/mm3 (4.5-11.0) H 11/15/16 06:11 RBC 4.02 M/mm3 (3.65-5.03) 11/15/16 06:11 Hgb 12.5 gm/dl (10.1-14.3) 11/15/16 06:11 Hct 39.2 % (30.3-42.9) 11/15/16 06:11 MCV 98 fl (79-97) H 11/15/16 06:11 MCH 31 pg (28-32) 11/15/16 06:11 MCHC 32 % (30-34) 11/15/16 06:11 RDW 18.0 % (13.2-15.2) H 11/15/16 06:11 Plt Count 244 K/mm3 (140-440) 11/15/16 06:11 Lymph % (Auto) Helpdesk Specialist 11/15/16 06:11 [place] % (Auto) Helpdesk Specialist 11/15/16 06:11 Eos % (Auto) Helpdesk Specialist 11/15/16 06:11 Baso % (Auto) Helpdesk Specialist 11/15/16 06:11 Lymph # Helpdesk Specialist 11/15/16 06:11 [place] # Helpdesk Specialist 11/15/16 06:11 Eos # Helpdesk Specialist 11/15/16 06:11 Baso # Helpdesk Specialist 11/15/16 06:11 Add Manual Diff Complete 11/15/16 06:11 Total Counted 100 11/15/16 06:11 Seg Neutrophils % Helpdesk Specialist 11/15/16 06:11 Seg Neuts % (Manual) 67.0 % (40.0-70.0) 11/15/16 06:11 Band Neutrophils % 0 % 11/15/16 06:11 Lymphocytes % (Manual) 21.0 % (13.4-35.0) 11/15/16 06:11 Reactive Lymphs % (Man) 0 % 11/15/16 06:11 Monocytes % (Manual) 12.0 % (0.0-7.3) H 11/15/16 06:11 Eosinophils % (Manual) 0 % (0.0-4.3) 11/15/16 06:11 Basophils % (Manual) 0 % (0.0-1.8) 11/15/16 06:11 Metamyelocytes % 0 % 11/15/16 06:11 Myelocytes % 0 % 11/15/16 06:11 Promyelocytes % 0 % 11/15/16 06:11 Blast Cells % 0 % 11/15/16 06:11 Nucleated RBC % Not Reportable 11/15/16 06:11 Seg Neutrophils # Helpdesk Specialist 11/15/16 06:11 Seg Neutrophils # Man 0.0 K/mm3 (1.8-7.7) L 11/15/16 06:11 Band Neutrophils # 0.0 K/mm3 11/15/16 06:11 Lymphocytes # (Manual) 0.0 K/mm3 (1.2-5.4) L 11/15/16 06:11 Abs React Lymphs (Man) 0.0 K/mm3 11/15/16 06:11 Monocytes # (Manual) 0.0 K/mm3 (0.0-0.8) 11/15/16 06:11 Eosinophils # (Manual) 0.0 K/mm3 (0.0-0.4) 11/15/16 06:11 Basophils # (Manual) 0.0 K/mm3 (0.0-0.1) 11/15/16 06:11 Metamyelocytes # 0.0 K/mm3 11/15/16 06:11 Myelocytes # 0.0 K/mm3 11/15/16 06:11 Promyelocytes # 0.0 K/mm3 11/15/16 06:11 Blast Cells # 0.0 K/mm3 11/15/16 06:11 WBC Morphology Not Reportable 11/15/16 06:11 Hypersegmented Neuts Not Reportable 11/15/16 06:11 Hyposegmented Neuts Not Reportable 11/15/16 06:11 Hypogranular Neuts Not Reportable 11/15/16 06:11 Smudge Cells Not Reportable 11/15/16 06:11 Toxic Granulation Not Reportable 11/15/16 06:11 Toxic Vacuolation Not Reportable 11/15/16 06:11 Dohle Bodies Not Reportable 11/15/16 06:11 Pelger-Huet Anomaly Not Reportable 11/15/16 06:11 Ciara Rods Not Reportable 11/15/16 06:11 Platelet Estimate Appears normal 11/15/16 06:11 Clumped Platelets Not Reportable 11/15/16 06:11 Plt Clumps, EDTA Not Reportable 11/15/16 06:11 Large Platelets Not Reportable 11/15/16 06:11 Giant Platelets Not Reportable 11/15/16 06:11 Platelet Satelliting Not Reportable 11/15/16 06:11 Plt Morphology Comment Not Reportable 11/15/16 06:11 RBC Morphology Not Reportable 11/15/16 06:11 Dimorphic RBCs Not Reportable 11/15/16 06:11 Polychromasia Not Reportable 11/15/16 06:11 Hypochromasia Not Reportable 11/15/16 06:11 Poikilocytosis Not Reportable 11/15/16 06:11 Anisocytosis Few 11/15/16 06:11 Microcytosis Not Reportable 11/15/16 06:11 Macrocytosis Not Reportable 11/15/16 06:11 Spherocytes Not Reportable 11/15/16 06:11 Pappenheimer Bodies Not Reportable 11/15/16 06:11 Sickle Cells Not Reportable 11/15/16 06:11 Target Cells Not Reportable 11/15/16 06:11 Tear Drop Cells Not Reportable 11/15/16 06:11 Ovalocytes Not Reportable 11/15/16 06:11 Helmet Cells Not Reportable 11/15/16 06:11 Espinal-[place] Bodies Not Reportable 11/15/16 06:11 [place] Rings Not Reportable 11/15/16 06:11 [place] Cells Not Reportable 11/15/16 06:11 Bite Cells Not Reportable 11/15/16 06:11 Crenated Cell Not Reportable 11/15/16 06:11 Elliptocytes Not Reportable 11/15/16 06:11 Acanthocytes (Spur) Not Reportable 11/15/16 06:11 Rouleaux Not Reportable 11/15/16 06:11 Hemoglobin C Crystals Not Reportable 11/15/16 06:11 Schistocytes Not Reportable 11/15/16 06:11 Malaria parasites Not Reportable 11/15/16 06:11 [place] Bodies Not Reportable 11/15/16 06:11 Hem Pathologist Commnt No 11/15/16 06:11 Sodium 138 mmol/L (137-145) 11/15/16 09:35 Potassium 7.9 mmol/L (3.6-5.0) H* 11/15/16 09:35 Chloride 94.3 mmol/L (98-107) L 11/15/16 09:35 Carbon Dioxide 25 mmol/L (22-30) D 11/15/16 09:35 Anion Gap 27 mmol/L 11/15/16 09:35 BUN 35 mg/dL (7-17) H 11/15/16 09:35 Creatinine 7.5 mg/dL (0.7-1.2) H 11/15/16 09:35 Estimated GFR 8 ml/min 11/15/16 09:35 BUN/Creatinine Ratio 4.66 % 11/15/16 09:35 Glucose 77 mg/dL (65-100) 11/15/16 09:35 POC Glucose 74 (70-105) 11/16/16 08:08 Calcium 9.3 mg/dL (8.4-10.2) 11/15/16 09:35 Total Bilirubin 0.3 mg/dL (0.1-1.2) 11/13/16 21:17 AST 16 units/L (5-40) 11/13/16 21:17 ALT 10 units/L (7-56) 11/13/16 21:17 Alkaline Phosphatase 141 units/L (35-129) H 11/13/16 21:17 Total Creatine Kinase 64 units/L (30-135) 11/14/16 15:43 CK-MB (CK-2) 1.6 ng/mL (0.0-4.0) 11/14/16 15:43 CK-MB (CK-2) Rel Index 2.5 (0-4) 11/14/16 15:43 Troponin T 0.051 ng/mL (0.00-0.029) H D 11/14/16 15:43 Total Protein 7.3 g/dL (6.3-8.2) 11/13/16 21:17 Albumin 3.7 g/dL (3.9-5) L 11/13/16 21: Albumin/Globulin Ratio 1.0 % 11/13/16 21:17 Triglycerides 270 mg/dL (2-149) H 11/13/16 21:17 Cholesterol 214 mg/dL (50-199) H 11/13/16 21:17 LDL Cholesterol Direct 122 mg/dL (50-130) 11/13/16 21:17 HDL Cholesterol 38 mg/dL (40-59) L 11/13/16 21:17 Cholesterol/HDL Ratio 5.63 % 11/13/16 21:17 Urine Color Red (Yellow) 11/14/16 06:13 Urine Turbidity Cloudy (Clear) 11/14/16 06:13 Urine pH 8.0 (5.0-7.0) H 11/14/16 06:13 Ur Specific [place] 1.010 (1.003-1.030) 11/14/16 06:13 Urine Protein 100 mg/dl mg/dL (Negative) 11/14/16 06:13 Urine Glucose (UA) Neg mg/dL (Negative) 11/14/16 06:13 Urine Ketones Neg mg/dL (Negative) 11/14/16 06:13 Urine Blood Lg (Negative) 11/14/16 06:13 Urine Nitrite Neg (Negative) 11/14/16 06:13 Urine Bilirubin Neg (Negative) 11/14/16 06:13 Urine Urobilinogen < 2.0 mg/dL (<2.0) 11/14/16 06:13 Ur Leukocyte Esterase Tr (Negative) 11/14/16 06:13 Urine WBC (Auto) 5.0 /HPF (0.0-6.0) 11/14/16 06:13 Urine RBC (Auto) 3.0 /HPF (0.0-6.0) 11/14/16 06:13 U Epithel Cells (Auto) 56.0 /HPF (0-13.0) H 11/14/16 06:13 Amorphous Crystals 3+ 11/14/16 06:13 Urine HCG, Qual Negative (Negative) 11/14/16 06:13
[2016-11-17] MEDS: DILAUDID IV PRN ×7 (02:16→23:50)
[2016-11-17 05:58] LABS: BUN/Creatinine Ratio 4.56; Chloride 99.2 mmol/L (98-107); Potassium 5.1 mmol/L (3.6-5.0)
[2016-11-17] MEDS: CATAPRES PO SCH ×3 (08:31→22:36)
[2016-11-17] MEDS: LOVENOX SUB-Q SCH (09:06)
[2016-11-17] MEDS: RENVELA PO SCH ×2 (09:06→12:27)
[2016-11-17] MEDS: ASPIRIN PO SCH (09:06)
[2016-11-17] MEDS: DELTASONE PO SCH (09:06)
[2016-11-17] MEDS: COREG PO SCH ×2 (09:06→22:36)
[2016-11-17] MEDS: PLAVIX PO SCH (09:07)
[2016-11-17] MEDS: PLAQUENIL PO SCH (09:07)
[2016-11-17] MEDS: PEPCID PO SCH (09:07)
--- NOTE | 2016-11-17 10:46 | Progress Note ---
Assessment and Plan Atypical chest pain, likely costochondritis stress test may be completed as an OP NSTEMI type II troponin leak likely due to ESRD Hyperkalemia dialysis per nephrology CAD s/p PCI of mid LAD 06/2014 LHC 06/2015: patent LAD stent, otherwise normal coronaries Echo 08/2016: EF 55-60%, impaired relaxation, RVSP 38 mmHg continue ASA, Plavix, Lipitor Hypertension continue coreg, clonidine Hyperlipidemia continue Lipitor Lupus Given atypical pain and negative cath in 2014, recommend continuing medical management. Stress test may be completed as an outpatient. The patient has been seen in conjunction with Dr. Dooley who agrees with the assessment and plan of care. Subjective Date of service: 11/17/16 Principal diagnosis: chest pain Interval history: The patient is resting in bed. She c/o intermittent, sharp chest pain. Sinus rhythm on the monitor. Objective Last Vital Signs Temp 97.6 F 11/17/16 08:19 Pulse 100 H 11/17/16 09:53 Resp 20 11/17/16 08:19 BP 117/75 11/17/16 08:19 Pulse Ox 99 11/17/16 08:19 - Physical Examination General: No Apparent Distress HEENT: Positive: Normocephaly, Mucus Membranes Moist Neck: Positive: neck supple, trachea midline Cardiac: Positive: Reg Rate and Rhythm, S1/S2, Systolic Murmur Lungs: Positive: clear to auscultation Neuro: Positive: Grossly Intact Abdomen: Positive: Soft, Active Bowel Sounds. Negative: Tender Skin: Positive: Clear. Negative: Rash Musculoskeletal: Normal Range of Motion Extremities: Present: edema (trace-bilateral lower legs) - Labs and Meds Comprehensive Metabolic Panel 11/17/16 Range/Units 04:35 Sodium 141 (137-145) mmol/L Potassium 5.1 H D (3.6-5.0) mmol/L Chloride 99.2 (98-107) mmol/L Carbon Dioxide 26 (22-30) mmol/L BUN 21 H (7-17) mg/dL Creatinine 4.6 H (0.7-1.2) mg/dL Glucose 96 (65-100) mg/dL Calcium 9.0 (8.4-10.2) mg/dL - Imaging and Cardiology EKG: image reviewed Echo: report reviewed (08/2016: EF 55-60%, impaired relaxation, RVSP 38mmHg) - Telemetry EKG Rhythm: Sinus Rhythm - EKG Sinus rhythms and dysrhythmias: sinus rhythm
--- NOTE | 2016-11-17 15:02 | Progress Note ---
Assessment and Plan (1) ESRD (end stage renal disease) on dialysis Current Visit: No Status: Chronic Plan to address problem: no indication for HD today Assess need for HD on daily basis Renally dose medications Renal diet Maintain fluid restriction of 1 liter per day Obtain daily weight Strict intake and output (2) Hyperkalemia Current Visit: No Status: Acute Plan to address problem: low K diet (3) Hypertensive CKD, ESRD on dialysis Current Visit: Yes Status: Acute Plan to address problem: Continue on current anti-hypertensive regimen (4) Chest pain Current Visit: No Status: Acute Qualifiers: Chest pain type: unspecified Qualified Code(s): R07.9 - Chest pain, unspecified Plan to address problem: As per Cardiology management Subjective Date of service: 11/17/16 Principal diagnosis: chest pain Interval history: BP became low towards the end of her treatment yesterday Objective - Vital Signs Vital signs: Vital Signs - 12hr 11/17/16 11/17/16 11/17/16 04:00 04:49 08:19 Temperature 98.3 F 97.6 F Pulse Rate 82 Pulse Rate [ 73 Left Radial] Pulse Rate [ 77 Right Radial] Respiratory 21 20 Rate Blood Pressure 124/75 117/75 [Left Arm] O2 Sat by Pulse 98 99 Oximetry 11/17/16 11/17/16 09:53 12:25 Temperature Pulse Rate 100 H Pulse Rate [ 80 Left Radial] Pulse Rate [ Right Radial] Respiratory 18 Rate Blood Pressure 155/99 [Left Arm] O2 Sat by Pulse 100 Oximetry - General Appearance General appearance: well-developed, well-nourished EENT: ATNC, PERRL Neck: no JVD, no carotid bruit Respiratory: Present: Clear to Ascultation Cardiology: regular, S1S2 Gastrointestinal: normoactive bowel sounds Integumentary: no rash, warm and dry Neurologic: no focal deficit, no asterixis, alert and oriented x3 Musculoskeletal: other (no edema in BLE) Psychiatric: mood/affect appropriate, cooperative - Lab 11/15/16 06:11 11/17/16 04:35 Most recent lab results Calcium 9.0 mg/dL (8.4-10.2) 11/17/16 04:35
--- NOTE | 2016-11-17 18:49 | Progress Note ---
Assessment and Plan Assessment and plan: -NSTEMI type II/atypical chest pain Positive troponin secondary to end-stage renal disease Continue current cardiac medications, possible stress test tomorrow Cardiology following --End-stage renal disease on hemodialysis Patient will receive dialysis per schedule, nephrology following --History of coronary artery disease status post PCI in 2013 Heart In 2014 patents stent, normal left ventricular function ejection fraction Continue current cardiac medications aspirin and Plavix and statin --Hypertension; We will continue Coreg and clonidine and when necessary hydralazine --Dyslipidemia; stable on Lipitor --History of lupus stable --DVT prophylaxis with heparin Consults and recommendations noted and appreciated Closely monitor potassium levels, when reasonable, patient may have a stress test inpatient versus outpatient Possible discharge in 1-2 days if stable History Interval history: Patient seen and and evaluated medical records reviewed Complaints of not feeling well Intermittent chest pain, stress test was scheduled for tomorrow Alert awake oriented 3 not in acute distress vitals reviewed Hospitalist Physical - Constitutional Vitals: Temp Pulse Resp BP Pulse Ox 97.8 F 77 18 117/77 100 11/17/16 16:55 11/17/16 16:55 11/17/16 16:55 11/17/16 16:55 11/17/16 16:55 General appearance: Present: no acute distress, well-nourished, obese - EENT Eyes: Present: PERRL, EOM intact - Neck Neck: Present: supple, normal ROM - Respiratory Respiratory effort: normal Respiratory: bilateral: diminished, negative: rales, rhonchi, wheezing - Cardiovascular Rhythm: regular Heart Sounds: Present: S1 & S2 - Extremities Extremities: no ischemia, pulses intact, pulses symmetrical Peripheral Pulses: within normal limits - Abdominal General gastrointestinal: soft, non-tender, non-distended, normal bowel sounds - Integumentary Integumentary: Present: clear, warm - Psychiatric Psychiatric: appropriate mood/affect, cooperative - Neurologic Neurologic: CNII-XII intact, moves all extremities Results - Labs CBC & Chem 7: 11/15/16 06:11 11/17/16 04:35 Labs: Laboratory Last Values WBC 11.1 K/mm3 (4.5-11.0) H 11/15/16 06:11 RBC 4.02 M/mm3 (3.65-5.03) 11/15/16 06:11 Hgb 12.5 gm/dl (10.1-14.3) 11/15/16 06:11 Hct 39.2 % (30.3-42.9) 11/15/16 06:11 MCV 98 fl (79-97) H 11/15/16 06:11 MCH 31 pg (28-32) 11/15/16 06:11 MCHC 32 % (30-34) 11/15/16 06:11 RDW 18.0 % (13.2-15.2) H 11/15/16 06:11 Plt Count 244 K/mm3 (140-440) 11/15/16 06:11 Lymph % (Auto) Mirror Fabrication Supervisor 11/15/16 06:11 [place] % (Auto) Mirror Fabrication Supervisor 11/15/16 06:11 Eos % (Auto) Mirror Fabrication Supervisor 11/15/16 06:11 Baso % (Auto) Mirror Fabrication Supervisor 11/15/16 06:11 Lymph # Mirror Fabrication Supervisor 11/15/16 06:11 [place] # Mirror Fabrication Supervisor 11/15/16 06:11 Eos # Mirror Fabrication Supervisor 11/15/16 06:11 Baso # Mirror Fabrication Supervisor 11/15/16 06:11 Add Manual Diff Complete 11/15/16 06:11 Total Counted 100 11/15/16 06:11 Seg Neutrophils % Mirror Fabrication Supervisor 11/15/16 06:11 Seg Neuts % (Manual) 67.0 % (40.0-70.0) 11/15/16 06:11 Band Neutrophils % 0 % 11/15/16 06:11 Lymphocytes % (Manual) 21.0 % (13.4-35.0) 11/15/16 06:11 Reactive Lymphs % (Man) 0 % 11/15/16 06:11 Monocytes % (Manual) 12.0 % (0.0-7.3) H 11/15/16 06:11 Eosinophils % (Manual) 0 % (0.0-4.3) 11/15/16 06:11 Basophils % (Manual) 0 % (0.0-1.8) 11/15/16 06:11 Metamyelocytes % 0 % 11/15/16 06:11 Myelocytes % 0 % 11/15/16 06:11 Promyelocytes % 0 % 11/15/16 06:11 Blast Cells % 0 % 11/15/16 06:11 Nucleated RBC % Not Reportable 11/15/16 06:11 Seg Neutrophils # Mirror Fabrication Supervisor 11/15/16 06:11 Seg Neutrophils # Man 0.0 K/mm3 (1.8-7.7) L 11/15/16 06:11 Band Neutrophils # 0.0 K/mm3 11/15/16 06:11 Lymphocytes # (Manual) 0.0 K/mm3 (1.2-5.4) L 11/15/16 06:11 Abs React Lymphs (Man) 0.0 K/mm3 11/15/16 06:11 Monocytes # (Manual) 0.0 K/mm3 (0.0-0.8) 11/15/16 06:11 Eosinophils # (Manual) 0.0 K/mm3 (0.0-0.4) 11/15/16 06:11 Basophils # (Manual) 0.0 K/mm3 (0.0-0.1) 11/15/16 06:11 Metamyelocytes # 0.0 K/mm3 11/15/16 06:11 Myelocytes # 0.0 K/mm3 11/15/16 06:11 Promyelocytes # 0.0 K/mm3 11/15/16 06:11 Blast Cells # 0.0 K/mm3 11/15/16 06:11 WBC Morphology Not Reportable 11/15/16 06:11 Hypersegmented Neuts Not Reportable 11/15/16 06:11 Hyposegmented Neuts Not Reportable 11/15/16 06:11 Hypogranular Neuts Not Reportable 11/15/16 06:11 Smudge Cells Not Reportable 11/15/16 06:11 Toxic Granulation Not Reportable 11/15/16 06:11 Toxic Vacuolation Not Reportable 11/15/16 06:11 Dohle Bodies Not Reportable 11/15/16 06:11 Pelger-Huet Anomaly Not Reportable 11/15/16 06:11 Ciara Rods Not Reportable 11/15/16 06:11 Platelet Estimate Appears normal 11/15/16 06:11 Clumped Platelets Not Reportable 11/15/16 06:11 Plt Clumps, EDTA Not Reportable 11/15/16 06:11 Large Platelets Not Reportable 11/15/16 06:11 Giant Platelets Not Reportable 11/15/16 06:11 Platelet Satelliting Not Reportable 11/15/16 06:11 Plt Morphology Comment Not Reportable 11/15/16 06:11 RBC Morphology Not Reportable 11/15/16 06:11 Dimorphic RBCs Not Reportable 11/15/16 06:11 Polychromasia Not Reportable 11/15/16 06:11 Hypochromasia Not Reportable 11/15/16 06:11 Poikilocytosis Not Reportable 11/15/16 06:11 Anisocytosis Few 11/15/16 06:11 Microcytosis Not Reportable 11/15/16 06:11 Macrocytosis Not Reportable 11/15/16 06:11 Spherocytes Not Reportable 11/15/16 06:11 Pappenheimer Bodies Not Reportable 11/15/16 06:11 Sickle Cells Not Reportable 11/15/16 06:11 Target Cells Not Reportable 11/15/16 06:11 Tear Drop Cells Not Reportable 11/15/16 06:11 Ovalocytes Not Reportable 11/15/16 06:11 Helmet Cells Not Reportable 11/15/16 06:11 Espinal-[place] Bodies Not Reportable 11/15/16 06:11 [place] Rings Not Reportable 11/15/16 06:11 [place] Cells Not Reportable 11/15/16 06:11 Bite Cells Not Reportable 11/15/16 06:11 Crenated Cell Not Reportable 11/15/16 06:11 Elliptocytes Not Reportable 11/15/16 06:11 Acanthocytes (Spur) Not Reportable 11/15/16 06:11 Rouleaux Not Reportable 11/15/16 06:11 Hemoglobin C Crystals Not Reportable 11/15/16 06:11 Schistocytes Not Reportable 11/15/16 06:11 Malaria parasites Not Reportable 11/15/16 06:11 [place]es Bodies Not Reportable 11/15/16 06:11 Hem Pathologist Commnt No 11/15/16 06:11 Sodium 141 mmol/L (137-145) 11/17/16 04:35 Potassium 5.1 mmol/L (3.6-5.0) H D 11/17/16 04:35 Chloride 99.2 mmol/L (98-107) 11/17/16 04:35 Carbon Dioxide 26 mmol/L (22-30) 11/17/16 04:35 Anion Gap 21 mmol/L 11/17/16 04:35 BUN 21 mg/dL (7-17) H 11/17/16 04:35 Creatinine 4.6 mg/dL (0.7-1.2) H 11/17/16 04:35 Estimated GFR 13 ml/min 11/17/16 04:35 BUN/Creatinine Ratio 4.56 % 11/17/16 04:35 Glucose 96 mg/dL (65-100) 11/17/16 04:35 POC Glucose 114 (70-105) H 11/16/16 20:42 Calcium 9.0 mg/dL (8.4-10.2) 11/17/16 04:35 Total Bilirubin 0.3 mg/dL (0.1-1.2) 11/13/16 21:17 AST 16 units/L (5-40) 11/13/16 21: ALT 10 units/L (7-56) 11/13/16 21:17 Alkaline Phosphatase 141 units/L (35-129) H 11/13/16 21:17 Total Creatine Kinase 64 units/L (30-135) 11/14/16 15:43 CK-MB (CK-2) 1.6 ng/mL (0.0-4.0) 11/14/16 15:43 CK-MB (CK-2) Rel Index 2.5 (0-4) 11/14/16 15:43 Troponin T 0.051 ng/mL (0.00-0.029) H D 11/14/16 15:43 Total Protein 7.3 g/dL (6.3-8.2) 11/13/16 21:17 Albumin 3.7 g/dL (3.9-5) L 11/13/16 21:17 Albumin/Globulin Ratio 1.0 % 11/13/16 21:17 Triglycerides 270 mg/dL (2-149) H 11/13/16 21:17 Cholesterol 214 mg/dL (50-199) H 11/13/16 21:17 LDL Cholesterol Direct 122 mg/dL (50-130) 11/13/16 21:17 HDL Cholesterol 38 mg/dL (40-59) L 11/13/16 21:17 Cholesterol/HDL Ratio 5.63 % 11/13/16 21:17 Urine Color Red (Yellow) 11/14/16 06:13 Urine Turbidity Cloudy (Clear) 11/14/16 06:13 Urine pH 8.0 (5.0-7.0) H 11/14/16 06:13 Ur Specific [place] 1.010 (1.003-1.030) 11/14/16 06:13 Urine Protein 100 mg/dl mg/dL (Negative) 11/14/16 06:13 Urine Glucose (UA) Neg mg/dL (Negative) 11/14/16 06:13 Urine Ketones Neg mg/dL (Negative) 11/14/16 06:13 Urine Blood Lg (Negative) 11/14/16 06:13 Urine Nitrite Neg (Negative) 11/14/16 06:13 Urine Bilirubin Neg (Negative) 11/14/16 06:13 Urine Urobilinogen < 2.0 mg/dL (<2.0) 11/14/16 06:13 Ur Leukocyte Esterase Tr (Negative) 11/14/16 06:13 Urine WBC (Auto) 5.0 /HPF (0.0-6.0) 11/14/16 06:13 Urine RBC (Auto) 3.0 /HPF (0.0-6.0) 11/14/16 06:13 U Epithel Cells (Auto) 56.0 /HPF (0-13.0) H 11/14/16 06:13 Amorphous Crystals 3+ 11/14/16 06:13 Urine HCG, Qual Negative (Negative) 11/14/16 06:13
[2016-11-18] MEDS: DILAUDID IV PRN ×4 (03:16→12:55)
[2016-11-18 08:14] LABS: Basophils % (Auto) 0.9 % (0.0-1.8); Eosinophils % (Auto) 1.1 % (0.0-4.3); Hematocrit 37.3 % (30.3-42.9); Hemoglobin 11.6 gm/dl (10.1-14.3); Mean Corpuscular HGB Conc 31 % (30-34); Mean Corpuscular Hemoglobin 31 pg (28-32); Mean Corpuscular Volume 99 fl (79-97); Platelet Count 225 K/mm3 (140-440); Red Blood Count 3.78 M/mm3 (3.65-5.03); Red Cell Distribution Width 17.4 % (13.2-15.2); White Blood Count 7.6 K/mm3 (4.5-11.0)
[2016-11-18 08:15] LABS: BUN/Creatinine Ratio 5.07; Potassium 5.4 mmol/L (3.6-5.0)
[2016-11-18] MEDS: CATAPRES PO SCH ×2 (09:36→14:40)
[2016-11-18] MEDS: PEPCID PO SCH (09:41)
[2016-11-18] MEDS: PLAQUENIL PO SCH (09:41)
[2016-11-18] MEDS: PLAVIX PO SCH (09:41)
[2016-11-18] MEDS: DELTASONE PO SCH (09:41)
[2016-11-18] MEDS: LOVENOX SUB-Q SCH (09:42)
[2016-11-18] MEDS: ASPIRIN PO SCH (09:42)
[2016-11-18] MEDS: RENVELA PO SCH (09:47)
--- NOTE | 2016-11-18 10:27 | Progress Note ---
Assessment and Plan (1) ESRD (end stage renal disease) on dialysis Current Visit: No Status: Chronic Plan to address problem: HD today for clearance and volume removal Assess need for HD on daily basis Renally dose medications Renal diet Maintain fluid restriction of 1 liter per day Obtain daily weight Strict intake and output (2) Hyperkalemia Current Visit: No Status: Acute Plan to address problem: low K diet (3) Hypertensive CKD, ESRD on dialysis Current Visit: Yes Status: Acute Plan to address problem: Continue on current anti-hypertensive regimen (4) Chest pain Current Visit: No Status: Acute Qualifiers: Chest pain type: unspecified Qualified Code(s): R07.9 - Chest pain, unspecified Plan to address problem: As per Cardiology management Subjective Date of service: 11/18/16 Principal diagnosis: chest pain Interval history: mild SOB Objective - Vital Signs Vital signs: Vital Signs - 12hr 11/17/16 11/18/16 11/18/16 23:00 00:32 05:17 Temperature 98.2 F 97.6 F Pulse Rate 68 Pulse Rate [ 62 76 Right Radial] Respiratory 18 20 Rate Blood Pressure 128/64 126/84 [Left Arm] O2 Sat by Pulse 96 98 Oximetry 11/18/16 08:27 Temperature 97.9 F Pulse Rate Pulse Rate [ 69 Right Radial] Respiratory 20 Rate Blood Pressure 119/83 [Left Arm] O2 Sat by Pulse 97 Oximetry - General Appearance General appearance: well-developed, well-nourished EENT: ATNC, PERRL, mucous membranes moist Neck: no JVD, no carotid bruit Respiratory: Present: Clear to Ascultation Gastrointestinal: normoactive bowel sounds Integumentary: no rash, cool/clammy Neurologic: no focal deficit, no asterixis, alert and oriented x3 Psychiatric: mood/affect appropriate, cooperative - Lab 11/18/16 06:53 11/18/16 06:53 Most recent lab results Calcium 9.0 mg/dL (8.4-10.2) 11/18/16 06:53
--- NOTE | 2016-11-18 11:45 | Progress Note ---
Hospitalist Physical - Constitutional Vitals: Temp Pulse Resp BP Pulse Ox 97.9 F 69 20 119/83 97 11/18/16 08:27 11/18/16 08:27 11/18/16 08:27 11/18/16 08:27 11/18/16 08:27 General appearance: Present: no acute distress, well-nourished, obese Results - Labs CBC & Chem 7: 11/18/16 06:53 11/18/16 06:53 Labs: Laboratory Last Values WBC 7.6 K/mm3 (4.5-11.0) 11/18/16 06:53 RBC 3.78 M/mm3 (3.65-5.03) 11/18/16 06:53 Hgb 11.6 gm/dl (10.1-14.3) 11/18/16 06:53 Hct 37.3 % (30.3-42.9) 11/18/16 06:53 MCV 99 fl (79-97) H 11/18/16 06:53 MCH 31 pg (28-32) 11/18/16 06:53 MCHC 31 % (30-34) 11/18/16 06:53 RDW 17.4 % (13.2-15.2) H 11/18/16 06:53 Plt Count 225 K/mm3 (140-440) 11/18/16 06:53 Lymph % (Auto) 28.9 % (13.4-35.0) 11/18/16 06:53 [place] % (Auto) 10.8 % (0.0-7.3) H 11/18/16 06:53 Eos % (Auto) 1.1 % (0.0-4.3) 11/18/16 06:53 Baso % (Auto) 0.9 % (0.0-1.8) 11/18/16 06:53 Lymph # 2.2 K/mm3 (1.2-5.4) 11/18/16 06:53 [place] # 0.8 K/mm3 (0.0-0.8) 11/18/16 06:53 Eos # 0.1 K/mm3 (0.0-0.4) 11/18/16 06:53 Baso # 0.1 K/mm3 (0.0-0.1) 11/18/16 06:53 Add Manual Diff Complete 11/15/16 06:11 Total Counted 100 11/15/16 06:11 Seg Neutrophils % 58.3 % (40.0-70.0) 11/18/16 06:53 Seg Neuts % (Manual) 67.0 % (40.0-70.0) 11/15/16 06:11 Band Neutrophils % 0 % 11/15/16 06:11 Lymphocytes % (Manual) 21.0 % (13.4-35.0) 11/15/16 06:11 Reactive Lymphs % (Man) 0 % 11/15/16 06:11 Monocytes % (Manual) 12.0 % (0.0-7.3) H 11/15/16 06:11 Eosinophils % (Manual) 0 % (0.0-4.3) 11/15/16 06:11 Basophils % (Manual) 0 % (0.0-1.8) 11/15/16 06:11 Metamyelocytes % 0 % 11/15/16 06:11 Myelocytes % 0 % 11/15/16 06:11 Promyelocytes % 0 % 11/15/16 06:11 Blast Cells % 0 % 11/15/16 06:11 Nucleated RBC % Not Reportable 11/15/16 06:11 Seg Neutrophils # 4.5 K/mm3 (1.8-7.7) 11/18/16 06:53 Seg Neutrophils # Man 0.0 K/mm3 (1.8-7.7) L 11/15/16 06:11 Band Neutrophils # 0.0 K/mm3 11/15/16 06:11 Lymphocytes # (Manual) 0.0 K/mm3 (1.2-5.4) L 11/15/16 06:11 Abs React Lymphs (Man) 0.0 K/mm3 11/15/16 06:11 Monocytes # (Manual) 0.0 K/mm3 (0.0-0.8) 11/15/16 06:11 Eosinophils # (Manual) 0.0 K/mm3 (0.0-0.4) 11/15/16 06:11 Basophils # (Manual) 0.0 K/mm3 (0.0-0.1) 11/15/16 06:11 Metamyelocytes # 0.0 K/mm3 11/15/16 06:11 Myelocytes # 0.0 K/mm3 11/15/16 06:11 Promyelocytes # 0.0 K/mm3 11/15/16 06:11 Blast Cells # 0.0 K/mm3 11/15/16 06:11 WBC Morphology Not Reportable 11/15/16 06:11 Hypersegmented Neuts Not Reportable 11/15/16 06:11 Hyposegmented Neuts Not Reportable 11/15/16 06:11 Hypogranular Neuts Not Reportable 11/15/16 06:11 Smudge Cells Not Reportable 11/15/16 06:11 Toxic Granulation Not Reportable 11/15/16 06:11 Toxic Vacuolation Not Reportable 11/15/16 06:11 Dohle Bodies Not Reportable 11/15/16 06:11 Pelger-Huet Anomaly Not Reportable 11/15/16 06:11 Ciara Rods Not Reportable 11/15/16 06:11 Platelet Estimate Appears normal 11/15/16 06:11 Clumped Platelets Not Reportable 11/15/16 06:11 Plt Clumps, EDTA Not Reportable 11/15/16 06:11 Large Platelets Not Reportable 11/15/16 06:11 Giant Platelets Not Reportable 11/15/16 06:11 Platelet Satelliting Not Reportable 11/15/16 06:11 Plt Morphology Comment Not Reportable 11/15/16 06:11 RBC Morphology Not Reportable 11/15/16 06:11 Dimorphic RBCs Not Reportable 11/15/16 06:11 Polychromasia Not Reportable 11/15/16 06:11 Hypochromasia Not Reportable 11/15/16 06:11 Poikilocytosis Not Reportable 11/15/16 06:11 Anisocytosis Few 11/15/16 06:11 Microcytosis Not Reportable 11/15/16 06:11 Macrocytosis Not Reportable 11/15/16 06:11 Spherocytes Not Reportable 11/15/16 06:11 Pappenheimer Bodies Not Reportable 11/15/16 06:11 Sickle Cells Not Reportable 11/15/16 06:11 Target Cells Not Reportable 11/15/16 06:11 Tear Drop Cells Not Reportable 11/15/16 06:11 Ovalocytes Not Reportable 11/15/16 06:11 Helmet Cells Not Reportable 11/15/16 06:11 [place] Bodies Not Reportable 11/15/16 06:11 Lyle Rings Not Reportable 11/15/16 06:11 [place] Cells Not Reportable 11/15/16 06:11 Bite Cells Not Reportable 11/15/16 06:11 Crenated Cell Not Reportable 11/15/16 06:11 Elliptocytes Not Reportable 11/15/16 06:11 Acanthocytes (Spur) Not Reportable 11/15/16 06:11 Rouleaux Not Reportable 11/15/16 06:11 Hemoglobin C Crystals Not Reportable 11/15/16 06:11 Schistocytes Not Reportable 11/15/16 06:11 Malaria parasites Not Reportable 11/15/16 06:11 [place]es Bodies Not Reportable 11/15/16 06:11 Hem Pathologist Commnt No 11/15/16 06:11 Sodium 138 mmol/L (137-145) 11/18/16 06:53 Potassium 5.4 mmol/L (3.6-5.0) H 11/18/16 06:53 Chloride 98.0 mmol/L (98-107) 11/18/16 06:53 Carbon Dioxide 23 mmol/L (22-30) 11/18/16 06:53 Anion Gap 22 mmol/L 11/18/16 06:53 BUN 35 mg/dL (7-17) H 11/18/16 06:53 Creatinine 6.9 mg/dL (0.7-1.2) H 11/18/16 06:53 Estimated GFR 8 ml/min 11/18/16 06:53 BUN/Creatinine Ratio 5.07 % 11/18/16 06:53 Glucose 90 mg/dL (65-100) 11/18/16 06:53 POC Glucose 129 (70-105) H 11/17/16 21:12 Calcium 9.0 mg/dL (8.4-10.2) 11/18/16 06:53 Total Bilirubin 0.3 mg/dL (0.1-1.2) 11/13/16 21:17 AST 16 units/L (5-40) 11/13/16 21:17 ALT 10 units/L (7-56) 11/13/16 21:17 Alkaline Phosphatase 141 units/L (35-129) H 11/13/16 21:17 Total Creatine Kinase 64 units/L (30-135) 11/14/16 15:43 CK-MB (CK-2) 1.6 ng/mL (0.0-4.0) 11/14/16 15:43 CK-MB (CK-2) Rel Index 2.5 (0-4) 11/14/16 15:43 Troponin T 0.051 ng/mL (0.00-0.029) H D 11/14/16 15:43 Total Protein 7.3 g/dL (6.3-8.2) 11/13/16 21:17 Albumin 3.7 g/dL (3.9-5) L 11/13/16 21: Albumin/Globulin Ratio 1.0 % 11/13/16 21: Triglycerides 270 mg/dL (2-149) H 11/13/16 21: Cholesterol 214 mg/dL (50-199) H 11/13/16 21:17 LDL Cholesterol Direct 122 mg/dL (50-130) 11/13/16 21: HDL Cholesterol 38 mg/dL (40-59) L 11/13/16 21:17 Cholesterol/HDL Ratio 5.63 % 11/13/16 21:17 Urine Color Red (Yellow) 11/14/16 06:13 Urine Turbidity Cloudy (Clear) 11/14/16 06:13 Urine pH 8.0 (5.0-7.0) H 11/14/16 06:13 Ur Specific [place] 1.010 (1.003-1.030) 11/14/16 06:13 Urine Protein 100 mg/dl mg/dL (Negative) 11/14/16 06:13 Urine Glucose (UA) Neg mg/dL (Negative) 11/14/16 06:13 Urine Ketones Neg mg/dL (Negative) 11/14/16 06:13 Urine Blood Lg (Negative) 11/14/16 06:13 Urine Nitrite Neg (Negative) 11/14/16 06:13 Urine Bilirubin Neg (Negative) 11/14/16 06:13 Urine Urobilinogen < 2.0 mg/dL (<2.0) 11/14/16 06:13 Ur Leukocyte Esterase Tr (Negative) 11/14/16 06:13 Urine WBC (Auto) 5.0 /HPF (0.0-6.0) 11/14/16 06:13 Urine RBC (Auto) 3.0 /HPF (0.0-6.0) 11/14/16 06:13 U Epithel Cells (Auto) 56.0 /HPF (0-13.0) H 11/14/16 06:13 Amorphous Crystals 3+ 11/14/16 06:13 Urine HCG, Qual Negative (Negative) 11/14/16 06:13
[2016-11-18] MEDS: COREG PO SCH (11:51)
[2016-11-18] MEDS: BENADRYL IV PRN (12:00)
[2016-11-18] MEDS: ZOFRAN IV PRN (12:00)
--- NOTE | 2016-11-18 13:42 | Discharge Summary ---
Providers - Providers Date of Admission: 11/14/16 05:05 Date of discharge: 11/18/16 Attending physician: JUANIS WRIGHT 11/14/16 06:20 Consult to Physician [CONS] Routine Consulting Provider: HEIDI MOULTON Reason For Exam: cp/cad Notified:: secretary of state pl call Hospitalization Condition: Serious Disposition: DISCHARGED TO HOME OR SELFCARE Core Measure Documentation - Palliative Care Palliative Care/ Comfort Measures: Not Applicable - Core Measures Any of the following diagnoses?: none Exam - Constitutional Vitals: Temp Pulse Resp BP Pulse Ox 98.5 F 72 16 90/52 97 11/18/16 11:10 11/18/16 13:00 11/18/16 12:55 11/18/16 13:00 11/18/16 08:27 General appearance: Present: no acute distress, well-nourished - EENT Eyes: Present: PERRL, EOM intact - Neck Neck: Present: supple, normal ROM - Respiratory Respiratory effort: normal Respiratory: bilateral: diminished, negative: rales, rhonchi, wheezing - Cardiovascular Rhythm: regular Heart Sounds: Present: S1 & S2 - Extremities Extremities: no ischemia, pulses intact, pulses symmetrical Peripheral Pulses: within normal limits - Abdominal General gastrointestinal: Present: soft, non-tender, non-distended, normal bowel sounds - Integumentary Integumentary: Present: clear, warm - Musculoskeletal Musculoskeletal: strength equal bilaterally - Psychiatric Psychiatric: appropriate mood/affect, cooperative - Neurologic Neurologic: CNII-XII intact, moves all extremities Plan Activity: no restrictions Diet: renal Additional Instructions: Renal/hemodialysis per schedule. If you have or shortness of breath contact M.D. or go to emergency room Follow up with: EDGARD MUNOZ [Other] - 3-5 Days DEL BENJAMIN MD [Staff Physician] - 7 Days
[2016-11-18 14:17] VITALS: BP 111/62
== END 2016-11-18 16:10 | disposition home or self-care (01) | DRG 280 ==
LOC: ED 19:16 → 4A 11-14 05:05
PROVIDERS: ADMIT Internal Medicine; ATTEND Internal Medicine
PROC: 5A1D60Z (ICD-10-PCS; principal; 2016-11-14)
DX: I21.4 Non-ST elevation (NSTEMI) myocardial infarction (principal); N18.6 End stage renal disease; E87.5 Hyperkalemia; I13.2 Hypertensive heart and chronic kidney disease with heart failure and with stage 5 chronic kidney disease, or end stage renal disease; I50.9 Heart failure, unspecified; M19.90 Unspecified osteoarthritis, unspecified site; Z96.643 Presence of artificial hip joint, bilateral; M32.9 Systemic lupus erythematosus, unspecified; I25.110 Atherosclerotic heart disease of native coronary artery with unstable angina pectoris; E78.5 Hyperlipidemia, unspecified; Z99.2 Dependence on renal dialysis; I25.2 Old myocardial infarction; Z90.49 Acquired absence of other specified parts of digestive tract; Z95.5 Presence of coronary angioplasty implant and graft; Z79.82 Long term (current) use of aspirin; Z79.899 Other long term (current) drug therapy; Z83.3 Family history of diabetes mellitus; Z82.49 Family history of ischemic heart disease and other diseases of the circulatory system; Z88.6 Allergy status to analgesic agent; Z88.8 Allergy status to other drugs, medicaments and biological substances
CPT/HCPCS: 36415; 71010; 80048; 80053; 80061; 81001; 81025; 82550; 82553; 82962; 84484; 85007; 85025; 93005; 93010; 94640; 94644; 96365; 96375; 96376; A9270-GY; J0610; J1170; J1200; J1650; J1815; J2405; J7030; J7512

== ENCOUNTER 2016-12-18 19:51 | Inpatient (IN) | payer MEDICAID ==
[2016-12-18 21:48] LABS: Basophils % (Auto) 1.1 % (0.0-1.8); Eosinophils % (Auto) 0.2 % (0.0-4.3); Hematocrit 35.4 % (30.3-42.9); Hemoglobin 11.3 gm/dl (10.1-14.3); Mean Corpuscular HGB Conc 32 % (30-34); Mean Corpuscular Hemoglobin 30 pg (28-32); Mean Corpuscular Volume 94 fl (79-97); Platelet Count 274 K/mm3 (140-440); Red Blood Count 3.76 M/mm3 (3.65-5.03); Red Cell Distribution Width 16.8 % (13.2-15.2); White Blood Count 8.8 K/mm3 (4.5-11.0)
[2016-12-18 21:55] LABS: INR 1.2 (0.87-1.13)
[2016-12-18 22:09] LABS: BUN/Creatinine Ratio 5.2; Calcium 7.7 mg/dL (8.4-10.2); Chloride 93.6 mmol/L (98-107)
[2016-12-18 22:14] LABS: Potassium 7.8 mmol/L (3.6-5.0)
[2016-12-18] MEDS ORDERED: SODIUM BICARBONATE IV ONE (23:29)
[2016-12-18] MEDS ORDERED: PROVENTIL IH ONE (23:29)
[2016-12-18] MEDS ORDERED: D50W (25GM) IV ONE (23:29)
[2016-12-18] MEDS ORDERED: CALCIUM GLUCONATE 1,000 MG in NACL 0.9% 100 ML IV ONE (23:29)
--- NOTE | 2016-12-18 23:42 | Emergency Department Report ---
HPI - General Chief Complaint: Chest Pain Time Seen by Provider: 12/18/16 23:27 - HPI HPI: Room 4 The patient is a 31-year-old female presenting with a chief complaint of chest pain and syncope. The patient states her symptoms began 4 days ago while walking to the kitchen she states her legs began shake and then she passed out. Patient came to but did not go to the hospital. The following day the patient had another syncopal episode but did not go to the hospital. The patient states Sunday she began having substernal chest pain prior to hemodialysis. The patient states she went to dialysis but only stayed on for 1 hour (she normally receives dialysis for 3.5 hours) secondary to chest pain. The patient states chest pain has been intermittent and feels like pressure in nature. Patient does admit to shortness of breath, nausea/vomiting and diaphoresis with her chest pain. The patient currently denies chest pain but states it comes and goes. Location: Chest, see above Duration: [see above] Quality: Pressure Severity: Currently 0/10 Modifying factors: [see above] Context: [see above] Mode of transportation: [not driving] ED Past Medical Hx - Past Medical History Previous Medical History?: Yes Hx Hypertension: Yes Hx Heart Attack/AMI: Yes (one stent 2011) Hx Congestive Heart Failure: Yes Hx Renal Disease: Yes (hemodialysis ) Hx Sickle Cell Disease: ( ) Hx Arthritis: Yes Additional medical history: Lupus - Surgical History Hx Coronary Stent: Yes Hx Cholecystectomy: Yes Additional Surgical History: bilat total hips, right av fistula, - Family History Family history: no significant - Social History Smoking Status: Never Smoker Substance Use Type: None - Medications Home Medications: Home Medications Medication Instructions Recorded Confirmed Last Taken Type Aspirin [Aspirin TAB] 325 mg PO QDAY #30 tablet 06/24/15 09/26/16 1 Day Ago Rx Clopidogrel [Plavix] 75 mg PO DAILY #30 tablet 06/24/15 09/26/16 1 Day Ago Rx Sevelamer HCl [Renagel] 800 mg PO TIDWM #30 tablet 06/24/15 09/26/16 1 Day Ago Rx Carvedilol [Coreg] 25 mg PO BID #60 tablet 07/29/15 09/26/16 1 Day Ago Rx Hydroxychloroquine [Plaquenil] 200 mg PO QDAY tablet 07/29/15 09/26/16 1 Day Ago Rx cloNIDine [Catapres] 0.3 mg PO TID 30 Days 07/29/15 09/26/16 1 Day Ago Rx predniSONE [Deltasone] 10 mg PO QAM 09/23/15 09/26/16 1 Day Ago History Famotidine [Pepcid] 20 mg PO BID #60 tablet 09/26/16 Unknown Rx AtorvaSTATin [Lipitor] 40 mg PO QHS #30 tablet 11/18/16 Unknown Rx oxyCODONE /ACETAMINOPHEN [Percocet 1 tab PO QHS PRN #7 tablet 11/18/16 Unknown Rx 5/325] ED Review of Systems ROS: Stated complaint: CHEST PAIN,BLACK OUT,VOMITING Other details as noted in HPI Comment: All other systems reviewed and negative Constitutional: diaphoresis. denies: chills, fever Eyes: denies: eye pain, eye discharge, vision change ENT: denies: ear pain, throat pain Respiratory: shortness of breath Cardiovascular: chest pain Endocrine: no symptoms reported Gastrointestinal: nausea, vomiting Genitourinary: denies: urgency, dysuria, discharge Musculoskeletal: denies: back pain, joint swelling, arthralgia Skin: denies: rash, lesions Neurological: denies: headache, weakness, paresthesias Psychiatric: denies: anxiety, depression Hematological/Lymphatic: denies: easy bleeding, easy bruising Physical Exam - Physical Exam Vital Signs: Vital Signs 12/18/16 20:27 Temperature 98.1 F Pulse Rate 83 Respiratory 20 Rate Blood Pressure 172/122 O2 Sat by Pulse 100 Oximetry Physical Exam: GENERAL: The patient is well-developed well-nourished female lying on stretcher not appearing to be in acute distress. [] HEENT: Normocephalic. Atraumatic. Extraocular motions are intact. Patient has moist mucous membranes. NECK: Supple. Trachea midline CHEST/LUNGS: Clear to auscultation. There is no respiratory distress noted. HEART/CARDIOVASCULAR: Regular. There is no tachycardia. There is no gallop rub or murmur. ABDOMEN: Abdomen is soft, nontender. Patient has normal bowel sounds. There is no abdominal distention. SKIN: There is no rash. There is no diaphoresis. NEURO: The patient is awake, alert, and oriented. The patient is cooperative. The patient has no focal neurologic deficits. The patient has normal speech. Cranial nerves II through XII grossly intact, no drift MUSCULOSKELETAL: There is no evidence of acute injury. ED Course Vital Signs 12/18/16 20:27 Temperature 98.1 F Pulse Rate 83 Respiratory 20 Rate Blood Pressure 172/122 O2 Sat by Pulse 100 Oximetry - Consultations Consultation #1: 12/18/16 23:37 Nephrology paged 12/18/16 23:[address] Long-requests nursing shift supervisor rn contacted rent control office manager dialysis nurse and he will place dialysis orders. The charge nurse was informed ED Medical Decision Making - Lab Data Result diagrams: 12/18/16 21:29 12/18/16 21:29 Laboratory Tests 12/18/16 12/18/16 12/18/16 21:22 21:29 21:29 WBC 8.8 RBC 3.76 Hgb 11.3 Hct 35.4 MCV 94 MCH 30 MCHC 32 RDW 16.8 H Plt Count 274 Lymph % (Auto) 19.9 [place] % (Auto) 8.6 H Eos % (Auto) 0.2 Baso % (Auto) 1.1 Lymph # 1.8 [place] # 0.8 Eos # 0.0 Baso # 0.1 Seg Neutrophils % 70.2 H Seg Neutrophils # 6.2 PT 15.1 H INR 1.20 H APTT 31.0 Sodium 135 L Potassium 7.8 H* Chloride 93.6 L Carbon Dioxide 22 Anion Gap 27 BUN 64 H Creatinine 12.3 H Estimated GFR 4 BUN/Creatinine Ratio 5.20 Glucose 83 Calcium 7.7 L Troponin T 0.033 H Triglycerides 111 Cholesterol 135 LDL Cholesterol Direct 73 HDL Cholesterol 40 Cholesterol/HDL Ratio 3.37 - EKG Data -: EKG Interpreted by Nc EKG shows normal: sinus rhythm Rate: normal - EKG Data When compared to previous EKG there are: previous EKG unavailable Interpretation: other (slightly peaked T waves) - Radiology Data Radiology results: report reviewed (chest x-ray), image reviewed (chest x-ray) Chest x-ray-no focal infiltrates, no pneumothorax - Differential Diagnosis ACS, pneumothorax, pneumonia, end-stage renal disease Critical care attestation.: If time is entered above; I have spent that time in minutes in the direct care of this critically ill patient, excluding procedure time. ED Disposition Clinical Impression: Hyperkalemia, ESRD (end stage renal disease) on dialysis Disposition: OP ADMITTED IP TO THIS HOSP Is pt being admited?: Yes Does the pt Need Aspirin: Yes Condition: Serious Referrals: PRIMARY CARE,MD [Primary Care Provider] - 3-5 Days Time of Disposition: 23:46 (hospitalist paged)
[2016-12-18] MEDS ORDERED: NACL 0.9% 1000 ML 100 ML IV PRN (23:48)
[2016-12-19] MEDS ORDERED: MORPHINE ONE ×2 (00:30→00:31)
[2016-12-19] MEDS ORDERED: ZOFRAN ONE (00:30)
[2016-12-19] MEDS ORDERED: SUBLIMAZE ONE (00:35)
[2016-12-19] MEDS ORDERED: ZOFRAN IV PRN ×2 (00:53→02:03)
[2016-12-19] MEDS ORDERED: TYLENOL PO PRN (00:53)
[2016-12-19] MEDS ORDERED: DULCOLAX PR PRN (00:53)
[2016-12-19] MEDS ORDERED: BENADRYL IV ONE (01:01)
[2016-12-19] MEDS ORDERED: BENADRYL ONE (01:09)
--- NOTE | 2016-12-19 04:49 | History and Physical Report ---
History of Present Illness Date of examination: 12/19/16 Date of admission: 12/19/16 00:54 History of present illness: 31-year-old woman with a history of CAD, hypertension, CHF, hypertension, lupus , end-stage renal disease on dialysis, Sunday, and Sunday came to the emergency room with complaints of syncope which occurred on and lasted for about 2 minutes. Symptoms occurred while she was walking to the kitchen, patient also experienced dizziness. On Sunday she had another syncopal episode lasting for less than a minute. While she was sent dialysis on Sunday he experienced chest pain. Pain is in the left substernal area which she describes as a sharp pain, intermittent in nature lasting for less than 1 minute, intensity 5/10, no radiatiion, and she cannot identify exacerbating or relieving factors. She admits to nausea, vomiting, shortness of breath, no diaphoresis or palpitation. Patient only had dialysis for 1.5 hours. Records reviewed showed she had a cardiac cath in 2014 which showed patent stent. Patient denies any abdominal pain, no hematochezia. No dysuria or frequency or rash or pruritus or anxiety or depression or seizure or focal weakness. No hot or cold intolerance or polydipsia polyuria, no easy bruisability or bleeding from mucosal membranes. No fever no chills, no earache or tinnitus. Other review of system is negative. PAST SURGICAL HISTORY: AV fistula, hip replacement 3, cholecystectomy, hernia repair, SOCIAL HISTORY: Denies alcohol, tobacco, drugs FAMILY HISTORY: Hypertension, diabetes Medications and Allergies Allergies Allergy/AdvReac Type Severity Reaction Status Date / Time hydrocodone bitartrate Allergy Itching Verified 05/15/16 02:00 [From Vicodin] morphine Allergy Itching Verified 05/15/16 02:00 tramadol Allergy Hives Verified 05/15/16 02:00 metoclopramide HCl AdvReac Unknown Verified 05/15/16 02:00 [From Reglan] Home Medications Medication Instructions Recorded Confirmed Last Taken Type Aspirin [Aspirin TAB] 325 mg PO QDAY #30 tablet 06/24/15 09/26/16 1 Day Ago Rx Clopidogrel [Plavix] 75 mg PO DAILY #30 tablet 06/24/15 09/26/16 1 Day Ago Rx Sevelamer HCl [Renagel] 800 mg PO TIDWM #30 tablet 06/24/15 09/26/16 1 Day Ago Rx Carvedilol [Coreg] 25 mg PO BID #60 tablet 07/29/15 09/26/16 1 Day Ago Rx Hydroxychloroquine [Plaquenil] 200 mg PO QDAY tablet 07/29/15 09/26/16 1 Day Ago Rx cloNIDine [Catapres] 0.3 mg PO TID 30 Days 07/29/15 09/26/16 1 Day Ago Rx predniSONE [Deltasone] 10 mg PO QAM 09/23/15 09/26/16 1 Day Ago History Famotidine [Pepcid] 20 mg PO BID #60 tablet 09/26/16 Unknown Rx AtorvaSTATin [Lipitor] 40 mg PO QHS #30 tablet 11/18/16 Unknown Rx oxyCODONE /ACETAMINOPHEN [Percocet 1 tab PO QHS PRN #7 tablet 11/18/16 Unknown Rx 5/325] Active Meds: Active Medications Acetaminophen (Tylenol) 650 mg PO Q4H PRN PRN Reason: Pain MILD(1-3)/Fever >100.5/MEJIA Bisacodyl (Dulcolax) 10 mg [place] QDAY PRN PRN Reason: Constipation unrelieved by MOM Enoxaparin Sodium (Lovenox) 30 mg SUB-Q QDAY ADIA Sodium Chloride (Nacl 0.9% 1000 Ml) 100 mls @ 999 mls/hr IV JOSEPH PRN PRN Reason: Hypotension Ondansetron HCl (Zofran) 4 mg IV Q4H PRN PRN Reason: Nausea And Vomiting Exam - Physical Exam Narrative exam: Gen. appearance: Patient lying in bed, no apparent distress HEENT: Normocephalic, atraumatic, pupils equally round and reactive to light, extraocular movement intact, and no sclericterus,. No JVD or thyromegaly or nodule,neck supple, no carotid bruit ,mucous membranes moist, no exudate or erythema Heart: S1, S2, regular rate and rhythm Lungs: Clear to auscultation bilaterally, breathing comfortable Abdomen: Positive bowel sounds, nontender, nondistended, no organomegaly Extremity: No edema, cyanosis, clubbing Skin: No rash, nodules, warm, dry Neuro: Oriented 3, cranial nerves II-12 intact, speech is fluent, motor and sensory intact - Constitutional Vitals: Temp Pulse Resp BP Pulse Ox 98.5 F 91 H 16 125/74 99 12/19/16 04:27 12/19/16 04:27 12/19/16 04:27 12/19/16 04:27 12/18/16 23:38 Results - Labs CBC & Chem 7: 12/18/16 21:29 12/18/16 21:29 - Imaging and Cardiology EKG: image reviewed Chest x-ray: image reviewed Assessment and Plan Severe Hyperkalemia needing urgent dialysis ESRD, need dialysis Unstable angina CAD Hypertension, uncontrolled Lupus CHF, stable Admit to medicine Renal is consulted for emergent dialysis, status post hyperkalemia cocktail Give iv dilaudid, asa, consult cardiology Check cardiac enzymes, d-dimer, v/q Continue appropiate outpatient medications Start dvt prophalaxis
--- NOTE | 2016-12-19 04:56 | Admit Criteria Form ---
Admission Criteria Documentation: HYPONATREMIA; HYPERNATREMIA; HYPOKALEMIA; HYPERKALEMIA; HYPOCALCEMIA; HYPERCALCEMIA Clinical Indications for Inpatient Care (Place 'X' for any and all applicable criteria): Ongoing inpatient care may be indicated for ANY ONE of the following [G](1)(2)(3 )(5): [ ]I. Hyponatremia with ANY ONE of the following: [ ]a) Sodium less than 130 mEq/L (mmol/L) (new) (6)(22) [ ]b) Sodium less than 135 mEq/L (mmol/L) with ANY ONE of the following: [ ]i) Severe medical etiology requiring inpatient management (eg, heart failure, hypovolemia) [ ]ii) Altered mental status [ ]iii) Seizures [ ]II. Hypernatremia with ANY ONE of the following: [ ]a) Sodium greater than 155 mEq/L (mmol/L) [ ]b) Sodium greater than 150 mEq/L (mmol/L) with ANY ONE of the following: [ ] i) Altered mental status [ ]ii) Seizures [ ]iii) Severe medical etiology (eg, hypovolemia, diabetes insipidus) [ ]iv) Severe weakness [ ]v) Severe medical etiology (eg, hemolysis, infection, drug overdose) [ ]III. Hypokalemia with ANY ONE of the following: [ ]a) Potassium less than 2.5 mEq/L (mmol/L) despite outpatient and emergency treatment [ ]b) Potassium less than 3.0 mEq/L (mmol/L) with ANY ONE of the following: [ ]i) Weakness [ ]ii) Cardiac abnormality (eg, arrhythmia, conduction disturbance) [ ]iii) Cardiac ischemia [ ]iv) Ileus [ ]v) Ongoing medical cause requiring inpatient management. ( e.g., acute renal wasting, SIADH) [ ]vi) Other severe symptoms [X ] IV. Hyperkalemia with ANY ONE of the following: [X ]a) Potassium greater than 6.5 mEq/L (mmol/L) [ ]b) Potassium greater than 5 mEq/L (mmol/L) with ANY ONE of the following: [ ]i) Severe ECG findings [H] [ ]ii) Acute worsening of renal failure (creatinine greater than 2.5 mg/dL (221 micromoles/L) or significant elevation for age and size) [ ] V. Hypocalcemia with ANY ONE of the following: [ ]a) Calcium less than 7 mg/dL (1.75 mmol/L) despite outpatient and emergency treatment(19) [ ]b) Calcium less than 8 mg/dL (2 mmol/L) with significant symptoms or findings; examples include: [ ]i) Cardiac abnormality (eg, arrhythmia or conduction disturbance) [ ]ii) Altered mental status [ ]iii) Seizures [ ]iv) Breathing difficulty [ ]v) Muscle spasms [ ]. Hypercalcemia with ANY ONE of the following: [ ]a) Calcium greater than 14 mg/dL (3.5 mmol/L) [ ]b) Calcium greater than 12 mg/dL (3 mmol/L) with ANY ONE of the following: [ ]i) Significant dehydration or hypovolemia as indicated by ANY ONE of the following(2): [ ]1. Clinically significant dehydration as indicated by ANY ONE of the following: [ ]A. Acute loss of weight from baseline (5% of body weight in adults, 9% in pediatric patients) [ ]B. Hemodynamic instability [ ]C. Acute renal failure [ ]D. Serum sodium greater than 150 mEq/L (mmol/L) [ ]2) Dehydration that is persistent indicated by ALL of the following: [ ]A. Oral rehydration therapy not tolerated or insufficient to adequately correct dehydration [ ]B. Appropriate intravenous treatment (eg, fluids ) does not readily correct dehydration ie, after 12 to 24 hours of treatment) [ ]ii) Significant symptoms or findings; examples include: [ ]1) Altered mental status [ ]2) Cardiac abnormality (eg, arrhythmia, conduction disturbance) [ ]3) Cardiac abnormality (eg, arrhythmia, conduction disturbance) The original [employer] includes the [facility] content created by [employer] has been revised. The portions of the content which have been revised are identified through the use of italic text or in bold, and [facility] has neither reviewed nor approved the modified material. All other unmodified content is copyright [facility] [employer] Please see references footnoted in the original [facility] eventuosity edition 2016 Admission Criteria Met: Yes
[2016-12-19] MEDS ORDERED: DILAUDID PO PRN (06:44)
--- NOTE | 2016-12-19 07:14 | XRay Report ---
AP CHEST History: Chest pain Findings: Heart size is borderline. Normal pulmonary vascularity. The lungs are clear. No pleural effusion or pneumothorax. No acute bony abnormality is appreciated. Impression: Borderline heart size. Lungs clear.
--- NOTE | 2016-12-19 08:24 | Nuclear Medicine Report ---
LUNG SCAN, VENTILATION AND PERFUSION: History: Chest pain, shortness of breath. Technique: 5mci of Tc99m MAA was infused for the perfusion images. 15mci XE 133 gas was inhaled for the ventilatory images. Correlation is made with a chest x-ray dated 12/18/16. Findings: Inhalation of Xenon gas demonstrates a normal distribution of the activity throughout both lungs. The wash out phases show no focal retention of activity. After injection of Technetium 99m macroaggregated albumin gamma camera imaging of the lungs in multiple projections demonstrates normal pulmonary contours with a homogeneous distribution of activity. No focal areas of perfusion deficiency are identified. IMPRESSION: Low probability for pulmonary embolus.
[2016-12-19 08:25] LABS: Creatine Kinase MB 1.2 ng/mL (0.0-4.0)
--- NOTE | 2016-12-19 08:50 | Consultation ---
History of Present Illness - History of Present Illness came to see pt in ER she had already left AMA per ER Medications and Allergies Allergies Allergy/AdvReac Type Severity Reaction Status Date / Time hydrocodone bitartrate Allergy Itching Verified 05/15/16 02:00 [From Vicodin] morphine Allergy Itching Verified 05/15/16 02:00 tramadol Allergy Hives Verified 05/15/16 02:00 metoclopramide HCl AdvReac Unknown Verified 05/15/16 02:00 [From Reglan] Home Medications Medication Instructions Recorded Confirmed Last Taken Type Aspirin [Aspirin TAB] 325 mg PO QDAY #30 tablet 06/24/15 12/19/16 1 Day Ago Rx Clopidogrel [Plavix] 75 mg PO DAILY #30 tablet 06/24/15 09/26/16 1 Day Ago Rx Sevelamer HCl [Renagel] 800 mg PO TIDWM #30 tablet 06/24/15 12/19/16 1 Day Ago Rx Carvedilol [Coreg] 25 mg PO BID #60 tablet 07/29/15 12/19/16 1 Day Ago Rx Hydroxychloroquine [Plaquenil] 200 mg PO QDAY tablet 07/29/15 12/19/16 1 Day Ago Rx cloNIDine [Catapres] 0.3 mg PO TID 30 Days 07/29/15 09/26/16 1 Day Ago Rx predniSONE [Deltasone] 10 mg PO QAM 09/23/15 12/19/16 1 Day Ago History Famotidine [Pepcid] 20 mg PO BID #60 tablet 09/26/16 12/19/16 Unknown Rx AtorvaSTATin [Lipitor] 40 mg PO QHS #30 tablet 11/18/16 12/19/16 Unknown Rx oxyCODONE /ACETAMINOPHEN [Percocet 1 tab PO QHS PRN #7 tablet 11/18/16 12/19/16 Unknown Rx 5/325] Active Meds: Active Medications Acetaminophen (Tylenol) 650 mg PO Q4H PRN PRN Reason: Pain MILD(1-3)/Fever >100.5/MEJIA Bisacodyl (Dulcolax) 10 mg [place] QDAY PRN PRN Reason: Constipation unrelieved by MOM Enoxaparin Sodium (Lovenox) 30 mg SUB-Q QDAY ADIA Hydromorphone HCl (Dilaudid) 2 mg PO Q4H PRN PRN Reason: Pain , Severe (7-10) Sodium Chloride (Nacl 0.9% 1000 Ml) 100 mls @ 999 mls/hr IV JOSEPH PRN PRN Reason: Hypotension Ondansetron HCl (Zofran) 4 mg IV Q4H PRN PRN Reason: Nausea And Vomiting Exam - Vital Signs Vital signs: Vital Signs Temp Pulse Resp BP Pulse Ox 98.1 F 83 20 172/122 100 12/18/16 20:27 12/18/16 20:27 12/18/16 20:27 12/18/16 20:27 12/18/16 20:27 Results - Lab Results 12/18/16 21:29 12/18/16 21:29 Most recent lab results Calcium 7.7 mg/dL (8.4-10.2) L 12/18/16 21:29
[2016-12-19 09:19] VITALS: BP 145/78
[2016-12-19] MEDS ORDERED: LOVENOX SUB-Q SCH (10:00)
== END 2016-12-19 09:25 | disposition left against medical advice (07) | DRG 291 ==
LOC: ED 19:51 → 4A 12-19 00:54
PROVIDERS: ADMIT Internal Medicine; ATTEND Internal Medicine
PROC: 5A1D00Z (ICD-10-PCS; principal; 2016-12-19)
DX: I13.2 Hypertensive heart and chronic kidney disease with heart failure and with stage 5 chronic kidney disease, or end stage renal disease (principal); N18.6 End stage renal disease; E87.5 Hyperkalemia; I25.110 Atherosclerotic heart disease of native coronary artery with unstable angina pectoris; M19.90 Unspecified osteoarthritis, unspecified site; I50.9 Heart failure, unspecified; Z96.649 Presence of unspecified artificial hip joint; Z88.8 Allergy status to other drugs, medicaments and biological substances; Z99.2 Dependence on renal dialysis; Z90.49 Acquired absence of other specified parts of digestive tract; Z98.61 Coronary angioplasty status; Z83.3 Family history of diabetes mellitus; Z82.49 Family history of ischemic heart disease and other diseases of the circulatory system; Z98.891 History of uterine scar from previous surgery; Z88.6 Allergy status to analgesic agent
CPT/HCPCS: 36415; 71010; 78582; 80048; 80061; 82550; 82553; 84484; 85025; 85379; 85610; 85730; 93005; 93010; A9540; A9558; J0610; J1200; J1815; J2270; J2405; J3010

== ENCOUNTER 2017-03-08 21:23 | Inpatient (IN) | payer MEDICAID ==
[2017-03-08 22:13] LABS: Basophils % (Auto) 0.7 % (0.0-1.8); Eosinophils % (Auto) 3.9 % (0.0-4.3); Hematocrit 35.5 % (30.3-42.9); Hemoglobin 11.6 gm/dl (10.1-14.3); Mean Corpuscular HGB Conc 33 % (30-34); Mean Corpuscular Hemoglobin 30 pg (28-32); Mean Corpuscular Volume 93 fl (79-97); Platelet Count 226 K/mm3 (140-440); Red Blood Count 3.83 M/mm3 (3.65-5.03); Red Cell Distribution Width 15.4 % (13.2-15.2); White Blood Count 7.8 K/mm3 (4.5-11.0)
[2017-03-08 22:27] LABS: BUN/Creatinine Ratio 5.74; Chloride 94.5 mmol/L (98-107)
[2017-03-08 22:31] LABS: Potassium 8.5 mmol/L (3.6-5.0)
[2017-03-08] MEDS ORDERED: CALCIUM GLUCONATE 2,000 MG in NACL 0.9% 100 ML IV ONE (22:56)
[2017-03-08] MEDS ORDERED: PROVENTIL IH ONE (22:56)
[2017-03-08] MEDS ORDERED: SODIUM BICARBONATE IV ONE ×2 (22:56→23:00)
--- NOTE | 2017-03-08 23:15 | Emergency Department Report ---
- General Chief complaint: Chest Pain Stated complaint: CP/SOB/VOMITING Time Seen by Provider: 03/08/17 22:54 Source: patient Mode of arrival: Ambulatory Limitations: No Limitations - History of Present Illness Initial comments: Patient is a 31-year-old female with a history of HTN, CAD, CHF, Lupus, end- stage renal disease on dialysis presenting with weakness and diffuse body pains. Patient reports she has not been dialyzed since Sunday, which was 5 days ago. Patient has missed 2 dialysis sessions this week due to transportation issues and not feeling well. Patient now reports sore throat, cough, diffuse pains, and mild increased swelling in her lower extremities. Otherwise no fevers, chills, MEJIA, SOB, travel, sick contacts. Pt gets dialyzed T, TH, Sat. Nephro: Dr Ham - Related Data Home Medications Medication Instructions Recorded Confirmed Last Taken predniSONE [Deltasone] 10 mg PO QAM 09/23/15 12/19/16 1 Day Ago Previous Rx's Medication Instructions Recorded Last Taken Type Aspirin [Aspirin TAB] 325 mg PO QDAY #30 tablet 06/24/15 1 Day Ago Rx Clopidogrel [Plavix] 75 mg PO DAILY #30 tablet 06/24/15 1 Day Ago Rx Sevelamer HCl [Renagel] 800 mg PO TIDWM #30 tablet 06/24/15 1 Day Ago Rx Carvedilol [Coreg] 25 mg PO BID #60 tablet 07/29/15 1 Day Ago Rx Hydroxychloroquine [Plaquenil] 200 mg PO QDAY tablet 07/29/15 1 Day Ago Rx cloNIDine [Catapres] 0.3 mg PO TID 30 Days 07/29/15 1 Day Ago Rx Famotidine [Pepcid] 20 mg PO BID #60 tablet 09/26/16 Unknown Rx AtorvaSTATin [Lipitor] 40 mg PO QHS #30 tablet 11/18/16 Unknown Rx oxyCODONE /ACETAMINOPHEN [Percocet 1 tab PO QHS PRN #7 tablet 11/18/16 Unknown Rx 5/325] Allergies Allergy/AdvReac Type Severity Reaction Status Date / Time hydrocodone bitartrate Allergy Itching Verified 05/15/16 02:00 [From Vicodin] morphine Allergy Itching Verified 05/15/16 02:00 tramadol Allergy Hives Verified 05/15/16 02:00 metoclopramide HCl AdvReac Unknown Verified 05/15/16 02:00 [facility] ED Review of Systems ROS: Stated complaint: CP/SOB/VOMITING Other details as noted in HPI Comment: All other systems reviewed and negative Constitutional: malaise, weakness Respiratory: cough Cardiovascular: chest pain, edema Gastrointestinal: abdominal pain, nausea, vomiting Musculoskeletal: arthralgia ED Past Medical Hx - Past Medical History Previous Medical History?: Yes Hx Hypertension: Yes Hx Heart Attack/AMI: Yes (one stent 2011) Hx Congestive Heart Failure: Yes Hx Diabetes: No Hx Liver Disease: No Hx Renal Disease: Yes (hemodialysis ) Hx Sickle Cell Disease: ( ) Hx Arthritis: Yes Hx Seizures: No Hx Asthma: No Hx COPD: No Hx HIV: No Additional medical history: Lupus - Surgical History Past Surgical History?: Yes Hx Coronary Stent: Yes Hx Cholecystectomy: Yes Additional Surgical History: bilat total hips, right av fistula, - Social History Smoking Status: Never Smoker Substance Use Type: None - Medications Home Medications: Home Medications Medication Instructions Recorded Confirmed Last Taken Type Aspirin [Aspirin TAB] 325 mg PO QDAY #30 tablet 06/24/15 12/19/16 1 Day Ago Rx Clopidogrel [Plavix] 75 mg PO DAILY #30 tablet 06/24/15 09/26/16 1 Day Ago Rx Sevelamer HCl [Renagel] 800 mg PO TIDWM #30 tablet 06/24/15 12/19/16 1 Day Ago Rx Carvedilol [Coreg] 25 mg PO BID #60 tablet 07/29/15 12/19/16 1 Day Ago Rx Hydroxychloroquine [Plaquenil] 200 mg PO QDAY tablet 07/29/15 12/19/16 1 Day Ago Rx cloNIDine [Catapres] 0.3 mg PO TID 30 Days 07/29/15 09/26/16 1 Day Ago Rx predniSONE [Deltasone] 10 mg PO QAM 09/23/15 12/19/16 1 Day Ago History Famotidine [Pepcid] 20 mg PO BID #60 tablet 09/26/16 12/19/16 Unknown Rx AtorvaSTATin [Lipitor] 40 mg PO QHS #30 tablet 11/18/16 12/19/16 Unknown Rx oxyCODONE /ACETAMINOPHEN [Percocet 1 tab PO QHS PRN #7 tablet 11/18/16 12/19/16 Unknown Rx 5/325] ED Physical Exam - General Limitations: No Limitations ED Course Vital Signs 03/08/17 03/08/17 03/08/17 21:42 22:46 22:50 Temperature 98.3 F Pulse Rate 90 86 86 Respiratory 20 16 25 H Rate Blood Pressure 222/138 193/117 Blood Pressure [Left] O2 Sat by Pulse 100 100 100 Oximetry 03/08/17 03/08/17 03/08/17 23:00 23:07 23:10 Temperature Pulse Rate 87 84 91 H Respiratory 14 16 18 Rate Blood Pressure 193/117 198/131 Blood Pressure 193/117 [Left] O2 Sat by Pulse 100 100 100 Oximetry 03/08/17 03/08/17 03/08/17 23:20 23:30 23:40 Temperature Pulse Rate 86 80 85 Respiratory 14 22 23 Rate Blood Pressure 182/115 196/106 182/115 Blood Pressure [Left] O2 Sat by Pulse 100 98 99 Oximetry 03/08/17 03/09/17 23:50 00:00 Temperature Pulse Rate 83 Respiratory 20 Rate Blood Pressure 212/101 176/102 Blood Pressure [Left] O2 Sat by Pulse 100 98 Oximetry ED Medical Decision Making - Lab Data Result diagrams: 03/08/17 21:53 03/08/17 21:53 - EKG Data -: EKG Interpreted by Me (21:28) EKG shows normal: sinus rhythm, axis (LAD, LAFB), intervals (QTc:445ms), ST-T waves ((-)ST changes, patient has peaked T waves consistent with HyperK, compared to prior EKGS) - EKG Data When compared to previous EKG there are: changes noted Interpretation: other (Hyperkalemia) - Medical Decision Making Case d/w Dr Molina at 2327 for emergent dialysis for hyperkalemia, he will arrange for dialysis Critical Care Time: Yes (Patient requiring emergent dialysis, hyperkalemia 8.6) Critical care attestation.: If time is entered above; I have spent that time in minutes in the direct care of this critically ill patient, excluding procedure time. Critical Care Time: 35 mins ED Disposition Clinical Impression: Hyperkalemia, ESRD (end stage renal disease) on dialysis, Chest pain, Hypertension, ESRD needing dialysis Disposition: OP ADMITTED IP TO THIS HOSP Is pt being admited?: Yes Condition: Stable Instructions: Chest Pain (ED), Hypertension (ED)
[2017-03-08] MEDS ORDERED: D50W (25GM) IV ONE ×2 (23:17→23:19)
[2017-03-09] MEDS ORDERED: D50W (25GM) IV ONE (00:29)
[2017-03-09] MEDS ORDERED: APRESOLINE IV ONE ×2 (00:30→20:58)
[2017-03-09] MEDS ORDERED: APRESOLINE ONE (00:38)
[2017-03-09] MEDS ORDERED: TYLENOL PO PRN (00:50)
[2017-03-09] MEDS ORDERED: RESTORIL PO PRN (00:51)
[2017-03-09] MEDS ORDERED: PERCOCET 5/325 PO PRN (00:52)
[2017-03-09] MEDS: DILAUDID IM PRN ×5 (04:33→20:20)
--- NOTE | 2017-03-09 07:02 | History and Physical Report ---
CHIEF COMPLAINT: Weakness. OTHER COMPLAINT: Bodyaches. HISTORY OF PRESENT ILLNESS: The patient is a 31-year-old female with end-stage renal disease, on dialysis, who has been feeling weak with diffuse bodyaches and states she has missed 2 dialysis sessions this week because of transportation problems and denied history of chest pain. Denied history of fever or chills and also denies history of nausea, vomiting and states she hurts all over. The patient also complains of swelling in the lower extremities. PAST MEDICAL HISTORY: Pertinent for hypertension, coronary artery disease, congestive heart failure, lupus, end-stage renal disease, on dialysis. Also includes arthritis and hypertension. PAST SURGICAL HISTORY: Pertinent for coronary artery stent placement, cholecystectomy. FAMILY HISTORY: Noncontributory. SOCIAL HISTORY: The patient does not smoke, does not drink alcohol and does not use illicit drugs. MEDICATIONS: The patient is on aspirin 325 mg by mouth daily, Plavix 75 mg by mouth daily. Sevelamer, Renagel 800 mg by mouth 3 times daily, carvedilol, Coreg 25 mg by mouth twice daily, hydrochloroquine, Plaquenil 200 mg by mouth daily, clonidine, Catapres 0.3 mg p.o. t.i.d., prednisone 10 mg p.o. q.a.m., famotidine, Pepcid 20 mg p.o. b.i.d., atorvastatin 40 mg p.o. at bedtime, Percocet 5/325 one p.o. at bedtime p.r.n. pain. ALLERGIES: The patient is allergic to hydrocodone bitartrate, morphine, tramadol, metoclopramide. REVIEW OF SYSTEMS: CONSTITUTIONAL: There is no fever, no chills, no diaphoresis. HEENT: There is no headache. No sore throat. CARDIOVASCULAR: There is no chest pain, no orthopnea. RESPIRATORY: There is no shortness of breath or cough. GASTROINTESTINAL: There is no nausea, no vomiting, no abdominal pain, diarrhea or constipation. NEUROLOGICAL: There is no numbness, no dizziness, no altered mental status. MUSCULOSKELETAL: Generalized muscle pain noted. No joint pain, there is swelling of the ankle area noted. DERMATOLOGICAL: There is no skin rash or itching. GENITOURINARY: There is dysuria, but no hematuria or flank pain. Rest of system review is normal. PHYSICAL EXAMINATION: GENERAL: At the time of exam, the patient was found to be alert, oriented x 3 and in mild distress due to body pain. VITAL SIGNS: Shows normal temperature, pulse of 83, blood pressure 167/104, O2 sat is normal. HEENT: Showed pupils to be equal, round, reactive to light and accommodation. Extraocular muscles are intact. NECK: Neck is supple with no JVD or carotid bruit. CARDIOVASCULAR: Show first and second heart sounds with no gallops or murmur. RESPIRATORY: Showed good air entry on both sides of the lung with no abnormal breath sounds. GASTROINTESTINAL: Show abdomen to be full, soft, nontender with no organomegaly or rigidity. NEUROLOGICAL: Showed no focal deficit. MUSCULOSKELETAL: Show swelling in the ankles with no joint pain. DERMATOLOGICAL: Show no skin rash. GENITOURINARY: Show no costovertebral angle tenderness. PERTINENT LABORATORY AND IMAGING STUDIES: The patient has CBC done with normal white count, normal hemoglobin and normal hematocrit. CBC differential was unremarkable. Chemistry shows slightly low sodium of 136 with very high potassium of 8.5, low chloride of 94.5, low CO2 of 21, high BUN of 77, and a high creatinine of 13.4 consistent with end-stage renal disease, on dialysis. The patient's troponin level was high with a value of 0.058 and lipid panel showed high triglyceride of 191 with a normal total cholesterol of 168 and normal LDL cholesterol of 95 and low HDL cholesterol of 35. The patient had imaging studies involving a chest x-ray, which shows mild pulmonary congestion. The patient's EKG possibly shows some mild changes. DIAGNOSES: 1. Hyperkalemia. 2. Volume overload due to end-stage renal disease, on dialysis. 3. Myalgia or muscle pain. PLAN: The patient will be admitted to telemetry, already the Emergency Room has consulted the shot bagger Dr. Molina for emergency dialysis because of the hyperkalemia and end-stage renal disease, so the patient will undergo emergency dialysis. The patient will have cardiac enzymes checked q. 6 hours x 2 and will be on the Zofran 4 mg IV q. 8 hours for nausea, vomiting and also temazepam 50 mg at bedtime for insomnia. The patient will be on oxygen by nasal cannula at 2 liters/minute and will be started on her home medications as shown in the medication reconciliation section. Deep venous thrombosis prophylaxis will be through sequential compressive device. JOB# [id number] OCN/NTS
--- NOTE | 2017-03-09 07:21 | XRay Report ---
Chest 2 views: History: Chest pain, coughing. Findings: Borderline cardiomegaly. Trachea is midline. No consolidation, pneumothorax or pleural effusion. Impression: No acute cardiopulmonary findings.
[2017-03-09] MEDS: RENVELA PO SCH ×3 (07:57→16:20)
[2017-03-09] MEDS: CATAPRES PO SCH ×3 (07:57→20:22)
[2017-03-09] MEDS ORDERED: NON-FORMULARY (Sevelamer Hcl [Renagel] 800 MG) PO SCH (08:00)
[2017-03-09] MEDS: ZOFRAN IV PRN ×2 (08:02→16:19)
[2017-03-09 08:27] LABS: Basophils % (Auto) 0.7 % (0.0-1.8); Eosinophils % (Auto) 3.5 % (0.0-4.3); Hematocrit 36.3 % (30.3-42.9); Hemoglobin 11.8 gm/dl (10.1-14.3); Mean Corpuscular HGB Conc 33 % (30-34); Mean Corpuscular Hemoglobin 30 pg (28-32); Mean Corpuscular Volume 91 fl (79-97); Platelet Count 213 K/mm3 (140-440); Red Blood Count 3.98 M/mm3 (3.65-5.03); Red Cell Distribution Width 15.7 % (13.2-15.2); White Blood Count 8.5 K/mm3 (4.5-11.0)
[2017-03-09 08:47] LABS: Creatine Kinase MB 2.3 ng/mL (0.0-4.0)
[2017-03-09 09:35] LABS: BUN/Creatinine Ratio 4.19; Calcium 9.2 mg/dL (8.4-10.2); Chloride 93.1 mmol/L (98-107); Potassium 5.8 mmol/L (3.6-5.0)
--- NOTE | 2017-03-09 09:49 | Admit Criteria Form ---
Admission Criteria Documentation: HYPONATREMIA; HYPERNATREMIA; HYPOKALEMIA; HYPERKALEMIA; HYPOCALCEMIA; HYPERCALCEMIA Clinical Indications for Inpatient Care (Place 'X' for any and all applicable criteria): Ongoing inpatient care may be indicated for ANY ONE of the following [G](1)(2)(3 )(5): [ ]I. Hyponatremia with ANY ONE of the following: [ ]a) Sodium less than 130 mEq/L (mmol/L) (new) (6)(22) [ ]b) Sodium less than 135 mEq/L (mmol/L) with ANY ONE of the following: [ ]i) Severe medical etiology requiring inpatient management (eg, heart failure, hypovolemia) [ ]ii) Altered mental status [ ]iii) Seizures [ ]II. Hypernatremia with ANY ONE of the following: [ ]a) Sodium greater than 155 mEq/L (mmol/L) [ ]b) Sodium greater than 150 mEq/L (mmol/L) with ANY ONE of the following: [ ] i) Altered mental status [ ]ii) Seizures [ ]iii) Severe medical etiology (eg, hypovolemia, diabetes insipidus) [ ]iv) Severe weakness [ ]v) Severe medical etiology (eg, hemolysis, infection, drug overdose) [ ]III. Hypokalemia with ANY ONE of the following: [ ]a) Potassium less than 2.5 mEq/L (mmol/L) despite outpatient and emergency treatment [ ]b) Potassium less than 3.0 mEq/L (mmol/L) with ANY ONE of the following: [ ]i) Weakness [ ]ii) Cardiac abnormality (eg, arrhythmia, conduction disturbance) [ ]iii) Cardiac ischemia [ ]iv) Ileus [ ]v) Ongoing medical cause requiring inpatient management. ( e.g., acute renal wasting, SIADH) [ ]vi) Other severe symptoms [X ] IV. Hyperkalemia with ANY ONE of the following: [ X]a) Potassium greater than 6.5 mEq/L (mmol/L) [ ]b) Potassium greater than 5 mEq/L (mmol/L) with ANY ONE of the following: [ ]i) Severe ECG findings [H] [ ]ii) Acute worsening of renal failure (creatinine greater than 2.5 mg/dL (221 micromoles/L) or significant elevation for age and size) [ ] V. Hypocalcemia with ANY ONE of the following: [ ]a) Calcium less than 7 mg/dL (1.75 mmol/L) despite outpatient and emergency treatment(19) [ ]b) Calcium less than 8 mg/dL (2 mmol/L) with significant symptoms or findings; examples include: [ ]i) Cardiac abnormality (eg, arrhythmia or conduction disturbance) [ ]ii) Altered mental status [ ]iii) Seizures [ ]iv) Breathing difficulty [ ]v) Muscle spasms [ ]. Hypercalcemia with ANY ONE of the following: [ ]a) Calcium greater than 14 mg/dL (3.5 mmol/L) [ ]b) Calcium greater than 12 mg/dL (3 mmol/L) with ANY ONE of the following: [ ]i) Significant dehydration or hypovolemia as indicated by ANY ONE of the following(2): [ ]1. Clinically significant dehydration as indicated by ANY ONE of the following: [ ]A. Acute loss of weight from baseline (5% of body weight in adults, 9% in pediatric patients) [ ]B. Hemodynamic instability [ ]C. Acute renal failure [ ]D. Serum sodium greater than 150 mEq/L (mmol/L) [ ]2) Dehydration that is persistent indicated by ALL of the following: [ ]A. Oral rehydration therapy not tolerated or insufficient to adequately correct dehydration [ ]B. Appropriate intravenous treatment (eg, fluids ) does not readily correct dehydration ie, after 12 to 24 hours of treatment) [ ]ii) Significant symptoms or findings; examples include: [ ]1) Altered mental status [ ]2) Cardiac abnormality (eg, arrhythmia, conduction disturbance) [ ]3) Cardiac abnormality (eg, arrhythmia, conduction disturbance) The original [facility] content created by [employer] has been revised. The portions of the content which have been revised are identified through the use of italic text or in bold, and [facility] has neither reviewed nor approved the modified material. All other unmodified content is copyright [facility] Please see references footnoted in the original [facility] [employer] edition 2016 Admission Criteria Met: Yes
--- NOTE | 2017-03-09 09:59 | Consultation ---
History of Present Illness - Reason for Consult Consult date: 03/09/17 end stage renal disease - History of Present Illness patient with h/o ESRD due to HTN and SLE, multiple admission for compliance with HD, last treatment was last , she did not go to her tx Sunday nd for feeling sick, when she came to the ED she had severe hyperkalemia with EKG changes, she was treated with hyperkalemia cocktail and I called for STAT HD which was done early this morning and tolerated well Past History Past Medical History: dialysis, ESRD, hypertension Medications and Allergies Allergies Allergy/AdvReac Type Severity Reaction Status Date / Time hydrocodone bitartrate Allergy Itching Verified 05/15/16 02:00 [From Vicodin] morphine Allergy Itching Verified 05/15/16 02:00 tramadol Allergy Hives Verified 05/15/16 02:00 metoclopramide HCl AdvReac Unknown Verified 05/15/16 02:00 [From Reglan] Home Medications Medication Instructions Recorded Confirmed Last Taken Type Aspirin [Aspirin TAB] 325 mg PO QDAY #30 tablet 06/24/15 12/19/16 1 Day Ago Rx Clopidogrel [Plavix] 75 mg PO DAILY #30 tablet 06/24/15 09/26/16 1 Day Ago Rx Sevelamer HCl [Renagel] 800 mg PO TIDWM #30 tablet 06/24/15 12/19/16 1 Day Ago Rx Carvedilol [Coreg] 25 mg PO BID #60 tablet 07/29/15 12/19/16 1 Day Ago Rx Hydroxychloroquine [Plaquenil] 200 mg PO QDAY tablet 07/29/15 12/19/16 1 Day Ago Rx cloNIDine [Catapres] 0.3 mg PO TID 30 Days 07/29/15 09/26/16 1 Day Ago Rx predniSONE [Deltasone] 10 mg PO QAM 09/23/15 12/19/16 1 Day Ago History Famotidine [Pepcid] 20 mg PO BID #60 tablet 09/26/16 12/19/16 Unknown Rx AtorvaSTATin [Lipitor] 40 mg PO QHS #30 tablet 11/18/16 12/19/16 Unknown Rx oxyCODONE /ACETAMINOPHEN [Percocet 1 tab PO QHS PRN #7 tablet 11/18/16 12/19/16 Unknown Rx 5/325] Active Meds: Active Medications Acetaminophen (Tylenol) 650 mg PO Q4H PRN PRN Reason: For Pain/Fever/Headache Aspirin (Aspirin) 325 mg PO QDAY [facility] Atorvastatin Calcium (Lipitor) 40 mg PO QHS [facility] Carvedilol (Coreg) 25 mg PO BID [facility] Clonidine HCl (Catapres) 0.3 mg PO TID [facility] Last Admin: 03/09/17 07:57 Dose: 0.3 mg Clopidogrel Bisulfate (Plavix) 75 mg PO DAILY [facility] Famotidine (Pepcid) 10 mg PO BID [facility] Hydromorphone HCl (Dilaudid) 1 mg IM Q4H PRN PRN Reason: Pain Last Admin: 03/09/17 07:56 Dose: 1 mg Hydroxychloroquine Sulfate (Plaquenil) 200 mg PO QDAY [facility] Ondansetron HCl (Zofran) 4 mg IV Q8H PRN PRN Reason: Nausea And Vomiting Last Admin: 03/09/17 08:02 Dose: 4 mg Oxycodone/Acetaminophen (Percocet 5/325) 1 tab PO QHS PRN PRN Reason: Pain Pneumococcal Polyvalent Vaccine (Pneumovax 23) 0.5 ml IM .ONCE ONE Stop: 03/09/17 12:01 Prednisone (Deltasone) 10 mg PO QAM [facility] Sevelamer Carbonate (Renvela) 800 mg PO TIDWM [facility] Last Admin: 03/09/17 07:57 Dose: 800 mg Temazepam (Restoril) 15 mg PO QHS PRN PRN Reason: Insomnia Review of Systems All systems: negative (weakness, nausea, vomiting) Exam - Vital Signs Vital signs: Vital Signs Temp Pulse Resp BP Pulse Ox 98.3 F 90 20 222/138 100 03/08/17 21:42 03/08/17 21:42 03/08/17 21:42 03/08/17 21:42 03/08/17 21:42 - General Appearance General appearance: well-developed, well-nourished EENT: ATNC, PERRL, mucous membranes moist Neck: Present: neck supple Respiratory: Clear to Ascultation Heart: regular, S1S2 Gastrointestinal: Present: normoactive bowel sounds Integumentary: no rash, warm and dry Neurologic: no focal deficit, no asterixis, alert and oriented x3 Musculoskeletal: Present: other (trace pitting edema in BLE) Psychiatric: mood/affect appropriate, cooperative Results - Lab Results 03/09/17 08:15 03/09/17 08:15 Most recent lab results Calcium 9.2 mg/dL (8.4-10.2) 03/09/17 08:15 Assessment and Plan - Patient Problems (1) ESRD (end stage renal disease) on dialysis Current Visit: Yes Status: Chronic Plan to address problem: emergent HD for severe hyperkalemia will assess needs for HD daily, will order again for tomorrow renally dose meds strict I&O daily weight renal diet (2) Hyperkalemia Current Visit: Yes Status: Acute Plan to address problem: s/p emergent HD (3) Hypertensive CKD, ESRD on dialysis Current Visit: No Status: Acute Plan to address problem: would avoid clonidine due to h/o poor compliance will adjust meds as needed
[2017-03-09] MEDS ORDERED: DELTASONE PO SCH (10:00)
[2017-03-09] MEDS ORDERED: PEPCID PO SCH (10:00)
[2017-03-09] MEDS: PLAQUENIL PO SCH (10:36)
[2017-03-09] MEDS: PEPCID PO SCH ×2 (10:36→22:49)
[2017-03-09] MEDS: DELTASONE PO SCH (10:36)
[2017-03-09] MEDS: COREG PO SCH ×2 (10:38→21:10)
[2017-03-09] MEDS: ASPIRIN PO SCH (10:38)
[2017-03-09] MEDS: PLAVIX PO SCH (10:38)
--- NOTE | 2017-03-09 11:24 | Consultation ---
History of Present Illness Consult date: 03/09/17 Requesting physician: ANUJ APONTE Consult reason: elevated troponin History of present illness: The patient is a 31 year old female with a history of CAD s/p PCI, HTN, ESRD on HD (/ schedule), lupus. He presented with complaints of generalized pain, nausea, vomiting, and chest pain 4 days prior to arrival. She states that she missed dialysis on both Sunday and of this week. She describes her chest pain has a nonexertional, nonradiating, left-sided, intermittent, stabbing pain. She reports associated intermittent shortness of breath. She denies any palpitations, diaphoresis, dizziness, or syncope. On admission, her serum potassium was noted to be 8.5 and she was given a hyperkalemia cocktail and received emergent dialysis. She reports that she is feeling better this morning. In 06/2014, she underwent cardiac cath and PCI of 90 % mid LAD lesion with a STEVEN at [facility]. Repeat cath in 06/2015 showed patent LAD stent and otherwise normal coronaries. Echo done 08/2016 showed EF 55 -60%, impaired relaxation, RVSP 38mmHg. Past History Past Medical History: CAD, dialysis, ESRD, hypertension Medications and Allergies Allergies Allergy/AdvReac Type Severity Reaction Status Date / Time hydrocodone bitartrate Allergy Itching Verified 05/15/16 02:00 [From Vicodin] morphine Allergy Itching Verified 05/15/16 02:00 tramadol Allergy Hives Verified 05/15/16 02:00 metoclopramide HCl AdvReac Unknown Verified 05/15/16 02:00 [From Reglan] Home Medications Medication Instructions Recorded Confirmed Last Taken Type Aspirin [Aspirin TAB] 325 mg PO QDAY #30 tablet 06/24/15 12/19/16 1 Day Ago Rx Clopidogrel [Plavix] 75 mg PO DAILY #30 tablet 06/24/15 09/26/16 1 Day Ago Rx Sevelamer HCl [Renagel] 800 mg PO TIDWM #30 tablet 06/24/15 12/19/16 1 Day Ago Rx Carvedilol [Coreg] 25 mg PO BID #60 tablet 07/29/15 12/19/16 1 Day Ago Rx Hydroxychloroquine [Plaquenil] 200 mg PO QDAY tablet 07/29/15 12/19/16 1 Day Ago Rx cloNIDine [Catapres] 0.3 mg PO TID 30 Days 07/29/15 09/26/16 1 Day Ago Rx predniSONE [Deltasone] 10 mg PO QAM 09/23/15 12/19/16 1 Day Ago History Famotidine [Pepcid] 20 mg PO BID #60 tablet 09/26/16 12/19/16 Unknown Rx AtorvaSTATin [Lipitor] 40 mg PO QHS #30 tablet 11/18/16 12/19/16 Unknown Rx oxyCODONE /ACETAMINOPHEN [Percocet 1 tab PO QHS PRN #7 tablet 11/18/16 12/19/16 Unknown Rx 5/325] Active Meds: Active Medications Acetaminophen (Tylenol) 650 mg PO Q4H PRN PRN Reason: For Pain/Fever/Headache Aspirin (Aspirin) 325 mg PO QDAY [facility] Last Admin: 03/09/17 10:38 Dose: 325 mg Atorvastatin Calcium (Lipitor) 40 mg PO QHS [facility] Carvedilol (Coreg) 25 mg PO BID [facility] Last Admin: 03/09/17 10:38 Dose: 25 mg Clonidine HCl (Catapres) 0.3 mg PO TID [facility] Last Admin: 03/09/17 07:57 Dose: 0.3 mg Clopidogrel Bisulfate (Plavix) 75 mg PO DAILY [facility] Last Admin: 03/09/17 10:38 Dose: 75 mg Famotidine (Pepcid) 10 mg PO BID [facility] Last Admin: 03/09/17 10:36 Dose: 10 mg Hydromorphone HCl (Dilaudid) 1 mg IM Q4H PRN PRN Reason: Pain Last Admin: 03/09/17 07:56 Dose: 1 mg Hydroxychloroquine Sulfate (Plaquenil) 200 mg PO QDAY [facility] Last Admin: 03/09/17 10:36 Dose: 200 mg Ondansetron HCl (Zofran) 4 mg IV Q8H PRN PRN Reason: Nausea And Vomiting Last Admin: 03/09/17 08:02 Dose: 4 mg Oxycodone/Acetaminophen (Percocet 5/325) 1 tab PO QHS PRN PRN Reason: Pain Pneumococcal Polyvalent Vaccine (Pneumovax 23) 0.5 ml IM .ONCE ONE Stop: 03/09/17 12:01 Prednisone (Deltasone) 10 mg PO QAM [facility] Last Admin: 03/09/17 10:36 Dose: 10 mg Sevelamer Carbonate (Renvela) 800 mg PO TIDWM [facility] Last Admin: 03/09/17 07:57 Dose: 800 mg Temazepam (Restoril) 15 mg PO QHS PRN PRN Reason: Insomnia Review of Systems Constitutional: no weight loss, no weight gain, no fever, no chills, no sweats Ears, nose, mouth and throat: no ear pain, no nose pain, no sinus pressure, no sinus pain Cardiovascular: chest pain, shortness of breath, dyspnea on exertion, no orthopnea, no palpitations, no rapid/irregular heart beat, no edema, no syncope , no lightheadedness, no leg edema Respiratory: shortness of breath, dyspnea on exertion, no cough, no congestion, no wheezing, no pain Gastrointestinal: nausea, vomiting, no abdominal pain, no diarrhea, no constipation, no change in bowel habits Genitourinary Female: no pelvic pain, no flank pain, no dysuria, no urinary frequency, no urgency Musculoskeletal: no neck stiffness, no neck pain, no shooting arm pain, no arm numbness/tingling, no low back pain, no shooting leg pain, no leg numbness/ tingling, no redness of joints Integumentary: no rash, no pruritis, no redness, no sores, no wounds Neurological: no paralysis, no weakness, no parathesias, no numbness, no tingling, no seizures, no syncope Endocrine: no cold intolerance, no heat intolerance Hematologic/Lymphatic: no easy bruising, no easy bleeding, no lymphadenopathy Allergic/Immunologic: no urticaria, no wheezing, no persistent infections Physical Examination Vital Signs Temp Pulse Resp BP Pulse Ox 98.3 F 90 20 222/138 100 03/08/17 21:42 03/08/17 21:42 03/08/17 21:42 03/08/17 21:42 03/08/17 21:42 General appearance: no acute distress HEENT: Positive: PERRL, EOMI, Normocephaly, Mucus Membranes Moist Neck: Positive: neck supple, trachea midline Cardiac: Positive: Reg Rate and Rhythm, S1/S2 Lungs: Positive: Normal Exam, clear to auscultation, Normal Breath Sounds, No Wheeze, Rales, Rhonchi Neuro: Positive: Grossly Intact, Cranial Nerve 2-12 Intact Abdomen: Positive: Unremarkable, Soft, Active Bowel Sounds. Negative: Tender Skin: Positive: Clear. Negative: Rash, Wound Musculoskeletal: No Fluid Collection, No Pain, Normal Range of Motion Extremities: Present: normal, upper extr. pulses, lower extr. pulses. Absent: edema Results 03/09/17 08:15 03/09/17 08:15 Cardiac Enzymes 03/09/17 Range/Units 08:15 CK-MB (CK-2) 2.3 (0.0-4.0) ng/mL CBC 03/09/17 Range/Units 08:15 WBC 8.5 (4.5-11.0) K/mm3 RBC 3.98 (3.65-5.03) M/mm3 Hgb 11.8 (10.1-14.3) gm/dl Hct 36.3 (30.3-42.9) % Plt Count 213 (140-440) K/mm3 Lymph # 1.8 (1.2-5.4) K/mm3 [place] # 1.0 H (0.0-0.8) K/mm3 Eos # 0.3 (0.0-0.4) K/mm3 Baso # 0.1 (0.0-0.1) K/mm3 Comprehensive Metabolic Panel 03/09/17 Range/Units 08:15 Sodium 138 (137-145) mmol/L Potassium 5.8 H D (3.6-5.0) mmol/L Chloride 93.1 L (98-107) mmol/L Carbon Dioxide 28 D (22-30) mmol/L BUN 34 H (7-17) mg/dL Creatinine 8.1 H (0.7-1.2) mg/dL Glucose 84 (65-100) mg/dL Calcium 9.2 (8.4-10.2) mg/dL - Imaging and Cardiology Echo: report reviewed Cardiac cath: report reviewed EKG: report reviewed, image reviewed EKG interpretations - Telemetry EKG Rhythm: Sinus Rhythm - EKG Sinus rhythms and dysrhythmias: sinus rhythm Myocardial infarction: septal CO (old age or ind Assessment and Plan Assessment: Atypical chest pain - Sangeeta negative for AMI; ECG with NAF; in setting of accelerated HTN. Elevated troponin - minimally elevated but negative for AMI; nonspecific in setting of ESRD Hyperkalemia ESRD, on HD CAD -s/p PCI of mid LAD 06/2014; LHC 06/2015: patent LAD stent, otherwise normal coronaries; Echo 08/2016: EF 55-60%, impaired relaxation, RVSP 38 mmHg Accelerated Hypertension Hyperlipidemia Lupus Plan: ACS ruled out. Currently stable cardiac status. Cont current management. No indication for any further cardiac testing at this time. Will see PRN. Assessment and plan reviewed with pt at bedside. The patient has been seen in conjunction with Dr. Dooley who agrees with the assessment and plan of care.
--- NOTE | 2017-03-09 11:25 | Consultation ---
History of Present Illness Consult date: 03/09/17 Requesting physician: LUTHER LARSEN Reason for consult: other (Symptomatic Hyperkalemia; ESRD on dialysis) History of present illness: PULMONARY/CCM CONSULT NOTE (Full dictation # [id number]) Please see dictated notes for full details Past History Past Medical History: dialysis, ESRD, hypertension Medications and Allergies Allergies Allergy/AdvReac Type Severity Reaction Status Date / Time hydrocodone bitartrate Allergy Itching Verified 05/15/16 02:00 [From Vicodin] morphine Allergy Itching Verified 05/15/16 02:00 tramadol Allergy Hives Verified 05/15/16 02:00 metoclopramide HCl AdvReac Unknown Verified 05/15/16 02:00 [From Reglan] Home Medications Medication Instructions Recorded Confirmed Last Taken Type Aspirin [Aspirin TAB] 325 mg PO QDAY #30 tablet 06/24/15 12/19/16 1 Day Ago Rx Clopidogrel [Plavix] 75 mg PO DAILY #30 tablet 06/24/15 09/26/16 1 Day Ago Rx Sevelamer HCl [Renagel] 800 mg PO TIDWM #30 tablet 06/24/15 12/19/16 1 Day Ago Rx Carvedilol [Coreg] 25 mg PO BID #60 tablet 07/29/15 12/19/16 1 Day Ago Rx Hydroxychloroquine [Plaquenil] 200 mg PO QDAY tablet 07/29/15 12/19/16 1 Day Ago Rx cloNIDine [Catapres] 0.3 mg PO TID 30 Days 07/29/15 09/26/16 1 Day Ago Rx predniSONE [Deltasone] 10 mg PO QAM 09/23/15 12/19/16 1 Day Ago History Famotidine [Pepcid] 20 mg PO BID #60 tablet 09/26/16 12/19/16 Unknown Rx AtorvaSTATin [Lipitor] 40 mg PO QHS #30 tablet 11/18/16 12/19/16 Unknown Rx oxyCODONE /ACETAMINOPHEN [Percocet 1 tab PO QHS PRN #7 tablet 11/18/16 12/19/16 Unknown Rx 5/325] Active Meds: Active Medications Acetaminophen (Tylenol) 650 mg PO Q4H PRN PRN Reason: For Pain/Fever/Headache Aspirin (Aspirin) 325 mg PO QDAY [facility] Last Admin: 03/09/17 10:38 Dose: 325 mg Atorvastatin Calcium (Lipitor) 40 mg PO QHS [facility] Carvedilol (Coreg) 25 mg PO BID [facility] Last Admin: 03/09/17 10:38 Dose: 25 mg Clonidine HCl (Catapres) 0.3 mg PO TID [facility] Last Admin: 03/09/17 07:57 Dose: 0.3 mg Clopidogrel Bisulfate (Plavix) 75 mg PO DAILY [facility] Last Admin: 03/09/17 10:38 Dose: 75 mg Famotidine (Pepcid) 10 mg PO BID [facility] Last Admin: 03/09/17 10:36 Dose: 10 mg Hydromorphone HCl (Dilaudid) 1 mg IM Q4H PRN PRN Reason: Pain Last Admin: 03/09/17 07:56 Dose: 1 mg Hydroxychloroquine Sulfate (Plaquenil) 200 mg PO QDAY [facility] Last Admin: 03/09/17 10:36 Dose: 200 mg Ondansetron HCl (Zofran) 4 mg IV Q8H PRN PRN Reason: Nausea And Vomiting Last Admin: 03/09/17 08:02 Dose: 4 mg Oxycodone/Acetaminophen (Percocet 5/325) 1 tab PO QHS PRN PRN Reason: Pain Pneumococcal Polyvalent Vaccine (Pneumovax 23) 0.5 ml IM .ONCE ONE Stop: 03/09/17 12:01 Prednisone (Deltasone) 10 mg PO QAM [facility] Last Admin: 03/09/17 10:36 Dose: 10 mg Sevelamer Carbonate (Renvela) 800 mg PO TIDWM [facility] Last Admin: 03/09/17 07:57 Dose: 800 mg Temazepam (Restoril) 15 mg PO QHS PRN PRN Reason: Insomnia Physical Examination Vital signs: Vital Signs Temp Pulse Resp BP Pulse Ox 98.3 F 90 20 222/138 100 03/08/17 21:42 03/08/17 21:42 03/08/17 21:42 03/08/17 21:42 03/08/17 21:42 Results - Laboratory Findings CBC and BMP: 03/09/17 08:15 03/09/17 08:15 Abnormal lab findings: Abnormal Labs 03/09/17 03/09/17 03/09/17 00:29 01:15 04:06 RDW [place] % (Auto) [place] # Potassium Chloride BUN Creatinine POC Glucose 48 L Troponin T 0.046 H D 0.071 H D 03/09/17 03/09/17 03/09/17 08:15 08:15 08:15 RDW 15.7 H [place] % (Auto) 11.3 H [place] # 1.0 H Potassium 5.8 H D Chloride 93.1 L BUN 34 H Creatinine 8.1 H POC Glucose Troponin T 0.055 H D
[2017-03-09] MEDS ORDERED: PNEUMOVAX 23 IM ONE (12:00)
--- NOTE | 2017-03-09 15:37 | Progress Note ---
Assessment and Plan Assessment and plan: End-stage renal disease on hemodialysis Hemodialysis noncompliant Hyperkalemia Atypical chest pain -Patient's potassium was 8.5 yesterday and emergent hemodialysis was done and now it is 5.8, was given hyperkalemia cocktail -Patient needs hemodialysis again today -She has elevated troponin level and chest pain, EKG were negative for [place], cardiology evaluated her and ruled out [place] Prophylaxis Heparin Disposition To transfer her to telemetry floor The high probability of a clinically significant, sudden or life threatening deterioration of the [cardiovascular, renal] system(s) required my full and direct attention, intervention and personal management. The aggregate critical care time was [31] minutes. This time is in addition to time spent performing reported procedures but includes the following: [x] Data Review and interpretation [x] Patient assessment and monitoring of vital signs [x] Documentation [x] Medication orders and management History Interval history: Patient was seen and evaluated this morning, patient was alert and oriented. She still complains mild left-sided chest pain. Hospitalist Physical - Physical exam Narrative exam: Not in cardiopulmonary distress. The patient emaciated. Vital signs as documented. Head exam is unremarkable. No scleral icterus . Neck is without jugular venous distension, thyromegaly, or carotid bruits. Lungs are clear to auscultation. Cardiac exam reveals regular rate and Rhythm. First and second heart sounds normal. No murmurs, rubs or gallops. Abdominal exam reveals normal bowel sounds, no masses, no organomegaly and no aortic enlargement. Extremities are nonedematous and both femoral and pedal pulses are normal. 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 No focal weakness. - Constitutional Vitals: Temp Pulse Resp BP Pulse Ox 98.5 F 91 H 19 106/67 98 03/09/17 04:18 03/09/17 14:06 03/09/17 13:00 03/09/17 14:06 03/09/17 13:00 General appearance: Present: no acute distress Results - Labs CBC & Chem 7: 03/09/17 08:15 03/09/17 08:15 Labs: Laboratory Last Values WBC 8.5 K/mm3 (4.5-11.0) 03/09/17 08:15 RBC 3.98 M/mm3 (3.65-5.03) 03/09/17 08:15 Hgb 11.8 gm/dl (10.1-14.3) 03/09/17 08:15 Hct 36.3 % (30.3-42.9) 03/09/17 08:15 MCV 91 fl (79-97) 03/09/17 08:15 MCH 30 pg (28-32) 03/09/17 08:15 MCHC 33 % (30-34) 03/09/17 08:15 RDW 15.7 % (13.2-15.2) H 03/09/17 08:15 Plt Count 213 K/mm3 (140-440) 03/09/17 08:15 Lymph % (Auto) 21.6 % (13.4-35.0) 03/09/17 08:15 [place] % (Auto) 11.3 % (0.0-7.3) H 03/09/17 08:15 Eos % (Auto) 3.5 % (0.0-4.3) 03/09/17 08:15 Baso % (Auto) 0.7 % (0.0-1.8) 03/09/17 08:15 Lymph # 1.8 K/mm3 (1.2-5.4) 03/09/17 08:15 [place] # 1.0 K/mm3 (0.0-0.8) H 03/09/17 08:15 Eos # 0.3 K/mm3 (0.0-0.4) 03/09/17 08:15 Baso # 0.1 K/mm3 (0.0-0.1) 03/09/17 08:15 Seg Neutrophils % 62.9 % (40.0-70.0) 03/09/17 08:15 Seg Neutrophils # 5.3 K/mm3 (1.8-7.7) 03/09/17 08:15 Sodium 138 mmol/L (137-145) 03/09/17 08:15 Potassium 5.8 mmol/L (3.6-5.0) H D 03/09/17 08:15 Chloride 93.1 mmol/L (98-107) L 03/09/17 08:15 Carbon Dioxide 28 mmol/L (22-30) D 03/09/17 08:15 Anion Gap 23 mmol/L 03/09/17 08:15 BUN 34 mg/dL (7-17) H 03/09/17 08:15 Creatinine 8.1 mg/dL (0.7-1.2) H 03/09/17 08:15 Estimated GFR 7 ml/min 03/09/17 08:15 BUN/Creatinine Ratio 4.19 % 03/09/17 08:15 Glucose 84 mg/dL (65-100) 03/09/17 08:15 POC Glucose 78 (70-105) 03/09/17 10:32 Calcium 9.2 mg/dL (8.4-10.2) 03/09/17 08:15 Total Creatine Kinase 101 units/L (30-135) 03/09/17 08:15 CK-MB (CK-2) 2.3 ng/mL (0.0-4.0) 03/09/17 08:15 CK-MB (CK-2) Rel Index 2.2 (0-4) 03/09/17 08:15 Troponin T 0.055 ng/mL (0.00-0.029) H D 03/09/17 08:15 Triglycerides 191 mg/dL (2-149) H 03/08/17 21:53 Cholesterol 168 mg/dL (50-199) 03/08/17 21:53 LDL Cholesterol Direct 95 mg/dL (50-130) 03/08/17 21:53 HDL Cholesterol 35 mg/dL (40-59) L 03/08/17 21:53 Cholesterol/HDL Ratio 4.80 % 03/08/17 21:53 Potassium is decreased from 8.5-5.8 after hemodialysis
[2017-03-09 18:27] LABS: Bilirubin,Urine NEG (Negative); Blood,Urine NEG (Negative); Ketones,Urine NEG (Negative); Leukocyte Esterase,Urine LG (Negative); Nitrite,Urine NEG (Negative); Urobilinogen,Urine < 2.0 mg/dL (<2.0)
[2017-03-09] MEDS: PHENERGAN PO PRN (18:46)
[2017-03-09] MEDS: HEPARIN SUB-Q SCH (22:48)
[2017-03-10] MEDS: DILAUDID IV PRN ×5 (01:51→21:37)
[2017-03-10] MEDS: ZOFRAN IV PRN ×2 (05:02→07:54)
--- NOTE | 2017-03-10 06:12 | Consultation ---
PULMONARY CRITICAL CARE CONSULTING NOTE CONSULTING PHYSICIAN: Dr. Langley. REASON FOR CONSULTATION: Critical care management. CHIEF COMPLAINT AND HISTORY OF PRESENT ILLNESS: The patient is a 31-year-old -[place] female with past medical history significant amongst other things for a diagnosis of end-stage renal disease on dialysis, came into the Emergency Room complaining of generalized weakness and generalized body pains. She admitted she had missed a whole week of dialysis at least two of the sessions. She was evaluated. She was complaining of sore throat, cough, nonproductive. Denied gross or streaky hemoptysis. She had increasing lower extremity edema. Denied any real fevers or chills. She was evaluated amongst other things found to be significantly hyperkalemic, required ICU admission for initiation of hemodialysis and close hemodynamic observation and support. When I stopped by to see her, she was feeling a little bit better. She had initially received hyperkalemia cocktail in the Emergency Room and was placed on hemodialysis, which she tolerated very well. She was feeling a little bit better. She still had one episode of nausea earlier today. She has about a [id number]-[id number] remote tobacco smoking history, but is no longer smoking. That really is as much of the history of presentation as I have. PAST MEDICAL HISTORY: Hypertension, coronary artery disease, congestive heart failure, end-stage renal disease on dialysis, history of arthritis, history of systemic lupus erythematosus. PAST SURGICAL HISTORY: She has had bilateral total hip replacement, right AV fistula and . Also, history of coronary stenting. She has had a cholecystectomy done also. MEDICATIONS: She was on at the time I stopped by to see her, according to the medication administration record included the following: P.r.n. Tylenol, aspirin 325 mg p.o. daily, Lipitor 40 mg p.o. at bedtime, Coreg 25 mg p.o. b.i.d., clonidine 0.3 mg p.o. t.i.d., Plavix 75 mg p.o. daily, Pepcid 10 mg p.o. b.i.d., Dilaudid 1 mg IM q.4 hours p.r.n. pain, Plaquenil 200 mg p.o. daily, Zofran 4 mg IV q. 8 hours p.r.n. nausea and vomiting and p.r.n. Percocet, prednisone 10 mg p.o. q.a.m., Renvela 800 mg p.o. t.i.d. with meals, temazepam 15 mg p.o. at bedtime p.r.n. ALLERGIES: MORPHINE, TRAMADOL, REGLAN, nature of this allergy is unknown. DIET: Obese lady, denies acute weight loss or gain in the preceding few weeks to months. FAMILY AND SOCIAL HISTORY: Lives in the community. 10+ pack year remote tobacco smoking history. Denies current alcohol, tobacco, or illicit drug use or abuse. REVIEW OF SYSTEMS: No loss of consciousness. No new onset seizures. No new onset focal weakness. She had generalized body weakness. No gross hematochezia or melena. No gross hematuria or dysuria. No hematemesis. No hemoptysis. No palpitations. Complete review of systems obtained. Pertinent positives and/or negatives as in body of history above, otherwise they are noncontributory. PHYSICAL EXAMINATION: VITAL SIGNS: At presentation in the Emergency Room, she was afebrile, temperature 98.3, pulse was 90, respiratory rate was 20, blood pressure was 222/138. Oxygen sats are 100%, inspired oxygen concentration was not recorded. HEAD, EYES, EARS, NOSE AND THROAT: Pupils are equal, round, about 3-4 mm, reactive to light. Extraocular muscle movements appeared intact. Grossly, there were no palpable lymph nodes in the supraclavicular or submandibular lymph node chains. LUNGS: Auscultation of both lung [place] revealed basilar rales, no wheezing. HEART: Heart sounds 1 and 2 are heard. They were regular in rate and rhythm at time of my evaluation. ABDOMEN: Soft, full, bowel sounds are positive, nontender. EXTREMITIES: Without overt digital clubbing or cyanosis. She had trace pedal edema. NEUROLOGIC: The exam was grossly nonfocal. LABORATORY DATA: For my review are as follows: White cell count on admission 7800, hemoglobin 11.6, hematocrit 35.5, platelets 226. No manual differential. Serum sodium 136, potassium was 8.5, chloride was 95, bicarbonate was 21, BUN was 77, creatinine was 13.4 and glucose was 88. Troponin slightly elevated at 0.058. Potassium is down to 5.8 on the last blood draw. No microbiology studies done. Chest x-ray was done. I have reviewed the films. I have also reviewed the radiologist's interpretation, borderline at best cardiomegaly, it is a 2 view. Probably enlarged right main pulmonary artery and possible pulmonary hypertension, questionable faint infiltrate in the right lower lobe, but nothing major. No pneumothorax, no gross bony fracture. ASSESSMENT AND PLAN: We have a young lady in with noncompliance, hyperkalemia, symptomatic. From a respiratory standpoint, she is actually doing well. We will wean her off oxygen and keep sats greater than about 94%. Aspiration precautions will be maintained. Bronchodilators will be on a p.r.n. basis. From a cardiovascular standpoint, she is actually tolerating antihypertensive medications. The EKG really was not that remarkable at presentation. Cardiology evaluation will be at the behest of the attending physician and I will defer to the attending. From a GI and nutritional standpoint, she is appropriately on GI prophylaxis. Aspiration precautions will be maintained. Oral nutrition will be the feeding modality of choice. We will follow her clinically. From a renal standpoint, electrolytes are looking better. Dialysis has been done. Frequency will be determined by the customer support manager who is being consulted. We will defer to them. From a DIE DESIGNER standpoint, the exam was grossly nonfocal. No acute indication for neuro imaging. We will follow her clinically. From an infectious disease standpoint, no signs and symptoms of overwhelming sepsis. No acute indication for antibiotic therapy. We will follow her clinically. From a general and hospital healthcare maintenance standpoint, she is going to be on GI and deep venous thrombosis prophylaxis. Flu and pneumonia vaccination will be per protocol. I have taken the time to education counselor her at length with her nurse present to ensure that she does not do what she just did again and she is compliant with dialysis. She understands my exaltation to her and stated that this should not happen again. Thank you very much for the consult. We will follow along and make further recommendations as picture progresses/becomes clearer. Hopefully, she is out of the sandy. We will watch her in the ICU for now. She is critically ill. At this point, I spent about 30-35 minutes of critical care time without overlap and excluding any procedural time that may be necessary. JOB# [id number]/[id number]
[2017-03-10 07:41] LABS: Basophils % (Auto) 0.9 % (0.0-1.8); Eosinophils % (Auto) 4.4 % (0.0-4.3); Hematocrit 36.6 % (30.3-42.9); Hemoglobin 11.7 gm/dl (10.1-14.3); Mean Corpuscular HGB Conc 32 % (30-34); Mean Corpuscular Hemoglobin 29 pg (28-32); Mean Corpuscular Volume 92 fl (79-97); Platelet Count 237 K/mm3 (140-440); Red Blood Count 3.99 M/mm3 (3.65-5.03); Red Cell Distribution Width 15.5 % (13.2-15.2); White Blood Count 7.9 K/mm3 (4.5-11.0)
[2017-03-10 07:58] LABS: BUN/Creatinine Ratio 4.03; Calcium 10.3 mg/dL (8.4-10.2)
[2017-03-10 08:04] LABS: Potassium 7.2 mmol/L (3.6-5.0)
[2017-03-10] MEDS ORDERED: KIONEX PO ONE (08:32)
[2017-03-10] MEDS ORDERED: CALCIUM GLUCONATE 2,000 MG in NACL 0.9% 100 ML IV ONE (09:05)
[2017-03-10] MEDS: CATAPRES PO SCH ×3 (09:05→21:36)
[2017-03-10] MEDS: RENVELA PO SCH ×3 (09:06→17:38)
--- NOTE | 2017-03-10 09:27 | Progress Note ---
Assessment and Plan - Patient Problems (1) ESRD (end stage renal disease) on dialysis Current Visit: Yes Status: Chronic Plan to address problem: STAT HD this MA due to hyperkalemia calcium gluconate 2 grams ordered renally dose meds strict I&O daily weight renal diet (2) Hyperkalemia Current Visit: Yes Status: Acute Plan to address problem: HD as above (3) Hypertensive CKD, ESRD on dialysis Current Visit: No Status: Acute Plan to address problem: would avoid clonidine due to h/o poor compliance UF with HD Subjective Date of service: 03/10/17 Principal diagnosis: ESRD Interval history: she feels nauseous this AM, vomited 1 once Objective - Vital Signs Vital signs: Vital Signs - 12hr 03/09/17 03/09/17 03/09/17 21:30 21:40 21:41 Temperature Pulse Rate 102 H 107 H Pulse Rate [ From Monitor] Pulse Rate [ Left Radial] Pulse Rate [ Right Radial] Respiratory 17 Rate Blood Pressure 158/98 158/98 Blood Pressure [Left Radial Artery] Blood Pressure [Right Radial Artery] O2 Sat by Pulse 100 Oximetry 03/10/17 03/10/17 03/10/17 01:23 01:51 04:50 Temperature 98.1 F 98.2 F Pulse Rate Pulse Rate [ From Monitor] Pulse Rate [ 87 Left Radial] Pulse Rate [ 104 H Right Radial] Respiratory 18 18 18 Rate Blood Pressure Blood Pressure 155/94 [Left Radial Artery] Blood Pressure 144/92 [Right Radial Artery] O2 Sat by Pulse 100 100 Oximetry 03/10/17 03/10/17 06:02 08:00 Temperature 98.6 F Pulse Rate Pulse Rate [ 92 H From Monitor] Pulse Rate [ Left Radial] Pulse Rate [ Right Radial] Respiratory 18 18 Rate Blood Pressure Blood Pressure 146/87 [Left Radial Artery] Blood Pressure [Right Radial Artery] O2 Sat by Pulse 99 Oximetry - General Appearance General appearance: well-developed, well-nourished EENT: ATNC, PERRL, mucous membranes moist Neck: no JVD, no carotid bruit Respiratory: Present: Clear to Ascultation Cardiology: regular, S1S2 Gastrointestinal: normoactive bowel sounds Integumentary: no rash, warm and dry Neurologic: no focal deficit, no asterixis, alert and oriented x3 Musculoskeletal: other (trace pitting edema in BLE) Psychiatric: mood/affect appropriate, cooperative - Lab 03/10/17 07:13 03/10/17 07:13 Most recent lab results Calcium 10.3 mg/dL (8.4-10.2) H 03/10/17 07:13
[2017-03-10] MEDS: COREG PO SCH ×2 (10:00→21:37)
[2017-03-10] MEDS: DELTASONE PO SCH (10:01)
[2017-03-10] MEDS: ASPIRIN PO SCH (10:05)
[2017-03-10] MEDS: HEPARIN SUB-Q SCH ×2 (10:10→21:36)
[2017-03-10] MEDS: PEPCID PO SCH ×2 (10:15→21:36)
[2017-03-10] MEDS: PLAQUENIL PO SCH (10:25)
[2017-03-10] MEDS: PLAVIX PO SCH (10:30)
--- NOTE | 2017-03-10 12:26 | Progress Note ---
Assessment and Plan - Patient Problems (1) Chest pain Current Visit: Yes Status: Acute Qualifiers: Chest pain type: C Ischemic chest pain type: I Plan to address problem: - resolved (2) Hyperkalemia Current Visit: Yes Status: Acute Plan to address problem: - corrected (3) ESRD (end stage renal disease) on dialysis Current Visit: Yes Status: Chronic Plan to address problem: - tolerated dialysis session - better compliance counselled - dialysis schedule per nephrology recommendations Subjective Date of service: 03/10/17 Principal diagnosis: Symptomatic Hyperkalemia; ESRD on Dialysis Interval history: Seen and examined at bedside; 24 hour events reviewed; nursing and respiratory care staff consulted; no adverse overnight events reported to me; looks and feels better; denies acute chest pains or increased SOB; no N/V/F/C Objective Vital Signs - 12hr 03/10/17 03/10/17 03/10/17 01:23 01:51 04:50 Temperature 98.1 F 98.2 F Pulse Rate [ From Monitor] Pulse Rate [ 87 Left Radial] Pulse Rate [ 104 H Right Radial] Respiratory 18 18 18 Rate Blood Pressure 155/94 [Left Radial Artery] Blood Pressure 144/92 [Right Radial Artery] O2 Sat by Pulse 100 100 Oximetry 03/10/17 03/10/17 03/10/17 06:02 08:00 10:00 Temperature 98.6 F Pulse Rate [ 92 H From Monitor] Pulse Rate [ Left Radial] Pulse Rate [ Right Radial] Respiratory 18 18 Rate Blood Pressure 146/87 [Left Radial Artery] Blood Pressure [Right Radial Artery] O2 Sat by Pulse 99 100 Oximetry Constitutional: no acute distress, alert Eyes: non-icteric ENT: oropharynx moist Neck: supple, no lymphadenopathy Effort: mildly labored Ascultation: Bilateral: diminished breath sounds, rales (posterior bases) Cardiovascular: regular rate and rhythm Gastrointestinal: normoactive bowel sounds, soft, non-tender, non-distended Extremities: no cyanosis, pulses normal, no ischemia or petechiae Neurologic: normal mental status, non-focal exam, pupils equal and round, motor strength normal and Psychiatric: mood appropriate, affect normal CBC and BMP: 03/10/17 07:13 03/11/17 11:02 Abnormal lab findings: Abnormal Labs 03/09/17 03/09/17 03/09/17 00:29 01:15 04:06 RDW [place] % (Auto) Eos % (Auto) [place] # Potassium Chloride BUN Creatinine POC Glucose 48 L Calcium Troponin T 0.046 H D 0.071 H D Urine pH Urine WBC (Auto) U Epithel Cells (Auto) 03/09/17 03/09/17 03/09/17 08:15 08:15 08:15 RDW 15.7 H [place] % (Auto) 11.3 H Eos % (Auto) [place] # 1.0 H Potassium 5.8 H D Chloride 93.1 L BUN 34 H Creatinine 8.1 H POC Glucose Calcium Troponin T 0.055 H D Urine pH Urine WBC (Auto) U Epithel Cells (Auto) 03/09/17 03/10/17 03/10/17 17:50 07:13 07:13 RDW 15.5 H [place] % (Auto) 15.0 H Eos % (Auto) 4.4 H [place] # 1.2 H Potassium 7.2 H* D Chloride 94.0 L BUN 42 H Creatinine 10.4 H POC Glucose Calcium 10.3 H Troponin T Urine pH 8.0 H Urine WBC (Auto) 7.0 H U Epithel Cells (Auto) 52.0 H Chest x-ray: image reviewed
[2017-03-10] MEDS: PHENERGAN PO PRN ×2 (13:15→18:27)
--- NOTE | 2017-03-10 14:39 | Progress Note ---
Assessment and Plan Assessment and plan: End-stage renal disease on hemodialysis Hemodialysis noncompliant Hyperkalemia Atypical chest pain Uncontrolled hypertension Non compliant -Patient's potassium 7.2 this morning, calcium gluconate was given, patient will have hemodialysis today -She has elevated troponin level and chest pain, EKG were negative for LA, cardiology evaluated her and ruled out LA -Continue blood pressure medications - Counseled about compliance with dialysis and medication adherence Prophylaxis Heparin Disposition - Continue inpatient care History Interval history: Patient was seen and evaluated this morning, patient was alert and oriented. She still complains left-sided chest pain, nausea and vomiting. Hospitalist Physical - Physical exam Narrative exam: Not in cardiopulmonary distress. The patient emaciated. Vital signs as documented. Head exam is unremarkable. No scleral icterus . Neck is without jugular venous distension, thyromegaly, or carotid bruits. Lungs are clear to auscultation. Cardiac exam reveals regular rate and Rhythm. First and second heart sounds normal. No murmurs, rubs or gallops. Abdominal exam reveals normal bowel sounds, no masses, no organomegaly and no aortic enlargement. Extremities are nonedematous and both femoral and pedal pulses are normal. 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 No focal weakness. - Constitutional Vitals: Temp Pulse Resp BP Pulse Ox 98.6 F 99 H 20 149/85 100 03/10/17 12:40 03/10/17 14:00 03/10/17 12:40 03/10/17 14:00 03/10/17 10:00 General appearance: Present: no acute distress Results - Labs CBC & Chem 7: 03/10/17 07:13 03/10/17 07:13 Labs: Laboratory Last Values WBC 7.9 K/mm3 (4.5-11.0) 03/10/17 07:13 RBC 3.99 M/mm3 (3.65-5.03) 03/10/17 07:13 Hgb 11.7 gm/dl (10.1-14.3) 03/10/17 07:13 Hct 36.6 % (30.3-42.9) 03/10/17 07:13 MCV 92 fl (79-97) 03/10/17 07:13 MCH 29 pg (28-32) 03/10/17 07:13 MCHC 32 % (30-34) 03/10/17 07:13 RDW 15.5 % (13.2-15.2) H 03/10/17 07:13 Plt Count 237 K/mm3 (140-440) 03/10/17 07:13 Lymph % (Auto) 25.1 % (13.4-35.0) 03/10/17 07:13 [place] % (Auto) 15.0 % (0.0-7.3) H 03/10/17 07:13 Eos % (Auto) 4.4 % (0.0-4.3) H 03/10/17 07:13 Baso % (Auto) 0.9 % (0.0-1.8) 03/10/17 07:13 Lymph # 2.0 K/mm3 (1.2-5.4) 03/10/17 07:13 [place] # 1.2 K/mm3 (0.0-0.8) H 03/10/17 07:13 Eos # 0.3 K/mm3 (0.0-0.4) 03/10/17 07:13 Baso # 0.1 K/mm3 (0.0-0.1) 03/10/17 07:13 Seg Neutrophils % 54.6 % (40.0-70.0) 03/10/17 07:13 Seg Neutrophils # 4.3 K/mm3 (1.8-7.7) 03/10/17 07:13 Sodium 141 mmol/L (137-145) 03/10/17 07:13 Potassium 7.2 mmol/L (3.6-5.0) H* D 03/10/17 07:13 Chloride 94.0 mmol/L (98-107) L 03/10/17 07:13 Carbon Dioxide 27 mmol/L (22-30) 03/10/17 07:13 Anion Gap 27 mmol/L 03/10/17 07:13 BUN 42 mg/dL (7-17) H 03/10/17 07:13 Creatinine 10.4 mg/dL (0.7-1.2) H 03/10/17 07:13 Estimated GFR 5 ml/min 03/10/17 07:13 BUN/Creatinine Ratio 4.03 % 03/10/17 07:13 Glucose 70 mg/dL (65-100) 03/10/17 07:13 POC Glucose 78 (70-105) 03/09/17 10:32 Calcium 10.3 mg/dL (8.4-10.2) H 03/10/17 07:13 Total Creatine Kinase 101 units/L (30-135) 03/09/17 08:15 CK-MB (CK-2) 2.3 ng/mL (0.0-4.0) 03/09/17 08:15 CK-MB (CK-2) Rel Index 2.2 (0-4) 03/09/17 08:15 Troponin T 0.055 ng/mL (0.00-0.029) H D 03/09/17 08:15 Triglycerides 191 mg/dL (2-149) H 03/08/17 21:53 Cholesterol 168 mg/dL (50-199) 03/08/17 21:53 LDL Cholesterol Direct 95 mg/dL (50-130) 03/08/17 21:53 HDL Cholesterol 35 mg/dL (40-59) L 03/08/17 21:53 Cholesterol/HDL Ratio 4.80 % 03/08/17 21:53 Urine Color Yellow (Yellow) 03/09/17 17:50 Urine Turbidity Cloudy (Clear) 03/09/17 17:50 Urine pH 8.0 (5.0-7.0) H 03/09/17 17:50 Ur Specific [place] 1.009 (1.003-1.030) 03/09/17 17:50 Urine Protein 100 mg/dl mg/dL (Negative) 03/09/17 17:50 Urine Glucose (UA) 50 mg/dL (Negative) 03/09/17 17:50 Urine Ketones Neg mg/dL (Negative) 03/09/17 17:50 Urine Blood Neg (Negative) 03/09/17 17:50 Urine Nitrite Neg (Negative) 03/09/17 17:50 Urine Bilirubin Neg (Negative) 03/09/17 17:50 Urine Urobilinogen < 2.0 mg/dL (<2.0) 03/09/17 17:50 Ur Leukocyte Esterase Lg (Negative) 03/09/17 17:50 Urine WBC (Auto) 7.0 /HPF (0.0-6.0) H 03/09/17 17:50 Urine RBC (Auto) 11.0 /HPF (0.0-6.0) 03/09/17 17:50 U Epithel Cells (Auto) 52.0 /HPF (0-13.0) H 03/09/17 17:50 Amorphous Crystals Few 03/09/17 17:50
[2017-03-10] MEDS ORDERED: APRESOLINE IV PRN (14:40)
[2017-03-11] MEDS: DILAUDID IV PRN ×4 (02:18→20:58)
[2017-03-11] MEDS: CATAPRES PO SCH ×3 (07:15→20:57)
[2017-03-11] MEDS: RENVELA PO SCH ×3 (07:15→16:11)
[2017-03-11 08:10] LABS: Anion Gap TNR mmol/L; BUN/Creatinine Ratio TNR; Blood Urea Nitrogen TNR mg/dL (7-17); Carbon Dioxide TNR mmol/L (22-30); Chloride TNR mmol/L (98-107); Potassium TNR mmol/L (3.6-5.0); Sodium TNR mmol/L (137-145)
[2017-03-11 08:11] LABS: Calcium TNR mg/dL (8.4-10.2); Glucose TNR mg/dL (65-100)
--- NOTE | 2017-03-11 08:46 | Progress Note ---
Assessment and Plan - Patient Problems (1) ESRD (end stage renal disease) on dialysis Current Visit: Yes Status: Chronic Plan to address problem: no indication for HDtoday renally dose meds strict I&O daily weight renal diet (2) Hyperkalemia Current Visit: Yes Status: Acute Plan to address problem: s/p 2 HD sessions labs this AM are pending (3) Hypertensive CKD, ESRD on dialysis Current Visit: No Status: Acute Plan to address problem: will adjust meds as needed Subjective Date of service: 03/11/17 Principal diagnosis: ESRD Interval history: tolerated HD yesterday, remains to feel nauseous Objective - Vital Signs Vital signs: Vital Signs - 12hr 03/10/17 03/10/17 03/11/17 20:55 22:00 01:24 Temperature 97.9 F 98.0 F Pulse Rate [ 118 H 99 H Left Radial] Respiratory 20 18 18 Rate Blood Pressure 139/83 140/84 [Left Radial Artery] O2 Sat by Pulse 99 98 98 Oximetry 03/11/17 04:30 Temperature 98.1 F Pulse Rate [ 96 H Left Radial] Respiratory 20 Rate Blood Pressure 121/67 [Left Radial Artery] O2 Sat by Pulse 97 Oximetry - General Appearance General appearance: well-developed, well-nourished EENT: ATNC, PERRL, mucous membranes moist Neck: no JVD, no carotid bruit Respiratory: Present: Clear to Ascultation. Absent: Rales, [place] Cardiology: regular, S1S2 Gastrointestinal: normoactive bowel sounds, no tenderness, no distended, no masses, obese Integumentary: no rash, warm and dry Neurologic: no focal deficit, no asterixis, alert and oriented x3 Musculoskeletal: other (no edema in BLE) Psychiatric: mood/affect appropriate, cooperative - Lab 03/10/17 07:13 03/11/17 06:57 Most recent lab results Calcium TNR 03/11/17 06:57
[2017-03-11 11:24] LABS: BUN/Creatinine Ratio 3.76; Calcium 9.8 mg/dL (8.4-10.2); Chloride 94.4 mmol/L (98-107); Potassium 5.8 mmol/L (3.6-5.0)
[2017-03-11] MEDS: PERCOCET 5/325 PO PRN ×2 (11:42→13:56)
[2017-03-11] MEDS: DELTASONE PO SCH (11:42)
[2017-03-11] MEDS: PLAQUENIL PO SCH (11:43)
[2017-03-11] MEDS: ASPIRIN PO SCH (11:43)
[2017-03-11] MEDS: PLAVIX PO SCH (11:44)
[2017-03-11] MEDS: PEPCID PO SCH ×2 (11:44→21:00)
[2017-03-11] MEDS: HEPARIN SUB-Q SCH ×3 (11:44→21:00)
[2017-03-11] MEDS: COREG PO SCH ×2 (11:44→21:00)
[2017-03-11] MEDS: PHENERGAN PO PRN (11:50)
--- NOTE | 2017-03-11 12:56 | Progress Note ---
Subjective Date of service: 03/11/17 Principal diagnosis: ESRD Interval history: Seen and examined at bedside; 24 hour events reviewed; nursing and respiratory care staff consulted; no adverse overnight events reported to me; Objective Vital Signs - 12hr 03/11/17 03/11/17 03/11/17 01:24 04:30 09:57 Temperature 98.0 F 98.1 F 97.7 F Pulse Rate [ 99 H 96 H Left Radial] Pulse Rate [ 87 Right Radial] Respiratory 18 20 18 Rate Blood Pressure 140/84 121/67 122/67 [Left Radial Artery] O2 Sat by Pulse 98 97 Oximetry CBC and BMP: 03/10/17 07:13 03/11/17 11:02 Abnormal lab findings: Abnormal Labs 03/09/17 03/09/17 03/09/17 00:29 01:15 04:06 RDW [place] % (Auto) Eos % (Auto) [place] # Potassium Chloride BUN Creatinine Glucose POC Glucose 48 L Calcium Troponin T 0.046 H D 0.071 H D Urine pH Urine WBC (Auto) U Epithel Cells (Auto) 03/09/17 03/09/17 03/09/17 08:15 08:15 08:15 RDW 15.7 H [place] % (Auto) 11.3 H Eos % (Auto) [place] # 1.0 H Potassium 5.8 H D Chloride 93.1 L BUN 34 H Creatinine 8.1 H Glucose POC Glucose Calcium Troponin T 0.055 H D Urine pH Urine WBC (Auto) U Epithel Cells (Auto) 03/09/17 03/10/17 03/10/17 17:50 07:13 07:13 RDW 15.5 H [place] % (Auto) 15.0 H Eos % (Auto) 4.4 H [place] # 1.2 H Potassium 7.2 H* D Chloride 94.0 L BUN 42 H Creatinine 10.4 H Glucose POC Glucose Calcium 10.3 H Troponin T Urine pH 8.0 H Urine WBC (Auto) 7.0 H U Epithel Cells (Auto) 52.0 H 03/11/17 11:02 RDW [place] % (Auto) Eos % (Auto) [place] # Potassium 5.8 H Chloride 94.4 L BUN 29 H Creatinine 7.7 H Glucose 118 H POC Glucose Calcium Troponin T Urine pH Urine WBC (Auto) U Epithel Cells (Auto)
[2017-03-11] MEDS: ZOFRAN IV PRN (13:56)
--- NOTE | 2017-03-11 14:44 | Progress Note ---
Assessment and Plan Assessment and plan: End-stage renal disease on hemodialysis Hemodialysis noncompliant Hyperkalemia Atypical chest pain Uncontrolled hypertension Non compliant -Patient's potassium 5.8 this morning, will continue hemodialysis -She has elevated troponin level and chest pain, EKG were negative for VT, cardiology evaluated her and ruled out VT -Continue blood pressure medications - Counseled about compliance with dialysis and medication adherence Prophylaxis Heparin Disposition - will discharge her tomorrow after hemodialysis. History Interval history: Patient was seen and evaluated this morning, patient was alert and oriented. She still complains left-sided chest pain, nausea and vomiting. patient said she vomited after she took her medications. Hospitalist Physical - Physical exam Narrative exam: Not in cardiopulmonary distress. Vital signs as documented. Head exam is unremarkable. No scleral icterus . Neck is without jugular venous distension, thyromegaly, or carotid bruits. Lungs are clear to auscultation. Cardiac exam reveals regular rate and Rhythm. First and second heart sounds normal. No murmurs, rubs or gallops. Abdominal exam reveals normal bowel sounds, no masses, no organomegaly and no aortic enlargement. Extremities are nonedematous and both femoral and pedal pulses are normal. 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 - Constitutional Vitals: Temp Pulse Resp BP Pulse Ox 97.5 F L 83 18 113/62 100 03/11/17 14:37 03/11/17 14:37 03/11/17 14:37 03/11/17 14:37 03/11/17 14:37 General appearance: Present: no acute distress Results - Labs CBC & Chem 7: 03/10/17 07:13 03/11/17 11:02 Labs: Laboratory Last Values WBC 7.9 K/mm3 (4.5-11.0) 03/10/17 07:13 RBC 3.99 M/mm3 (3.65-5.03) 03/10/17 07:13 Hgb 11.7 gm/dl (10.1-14.3) 03/10/17 07:13 Hct 36.6 % (30.3-42.9) 03/10/17 07:13 MCV 92 fl (79-97) 03/10/17 07:13 MCH 29 pg (28-32) 03/10/17 07:13 MCHC 32 % (30-34) 03/10/17 07:13 RDW 15.5 % (13.2-15.2) H 03/10/17 07:13 Plt Count 237 K/mm3 (140-440) 03/10/17 07:13 Lymph % (Auto) 25.1 % (13.4-35.0) 03/10/17 07:13 [place] % (Auto) 15.0 % (0.0-7.3) H 03/10/17 07:13 Eos % (Auto) 4.4 % (0.0-4.3) H 03/10/17 07:13 Baso % (Auto) 0.9 % (0.0-1.8) 03/10/17 07:13 Lymph # 2.0 K/mm3 (1.2-5.4) 03/10/17 07:13 [place] # 1.2 K/mm3 (0.0-0.8) H 03/10/17 07:13 Eos # 0.3 K/mm3 (0.0-0.4) 03/10/17 07:13 Baso # 0.1 K/mm3 (0.0-0.1) 03/10/17 07:13 Seg Neutrophils % 54.6 % (40.0-70.0) 03/10/17 07:13 Seg Neutrophils # 4.3 K/mm3 (1.8-7.7) 03/10/17 07:13 Sodium 138 mmol/L (137-145) 03/11/17 11:02 Potassium 5.8 mmol/L (3.6-5.0) H 03/11/17 11:02 Chloride 94.4 mmol/L (98-107) L 03/11/17 11:02 Carbon Dioxide 26 mmol/L (22-30) 03/11/17 11:02 Anion Gap 23 mmol/L 03/11/17 11:02 BUN 29 mg/dL (7-17) H 03/11/17 11:02 Creatinine 7.7 mg/dL (0.7-1.2) H 03/11/17 11:02 Estimated GFR 7 ml/min 03/11/17 11:02 BUN/Creatinine Ratio 3.76 % 03/11/17 11:02 Glucose 118 mg/dL (65-100) H 03/11/17 11:02 POC Glucose 78 (70-105) 03/09/17 10:32 Calcium 9.8 mg/dL (8.4-10.2) 03/11/17 11:02 Total Creatine Kinase 101 units/L (30-135) 03/09/17 08:15 CK-MB (CK-2) 2.3 ng/mL (0.0-4.0) 03/09/17 08:15 CK-MB (CK-2) Rel Index 2.2 (0-4) 03/09/17 08:15 Troponin T 0.055 ng/mL (0.00-0.029) H D 03/09/17 08:15 Triglycerides 191 mg/dL (2-149) H 03/08/17 21:53 Cholesterol 168 mg/dL (50-199) 03/08/17 21:53 LDL Cholesterol Direct 95 mg/dL (50-130) 03/08/17 21:53 HDL Cholesterol 35 mg/dL (40-59) L 03/08/17 21:53 Cholesterol/HDL Ratio 4.80 % 03/08/17 21:53 Urine Color Yellow (Yellow) 03/09/17 17:50 Urine Turbidity Cloudy (Clear) 03/09/17 17:50 Urine pH 8.0 (5.0-7.0) H 03/09/17 17:50 Ur Specific [place] 1.009 (1.003-1.030) 03/09/17 17:50 Urine Protein 100 mg/dl mg/dL (Negative) 03/09/17 17:50 Urine Glucose (UA) 50 mg/dL (Negative) 03/09/17 17:50 Urine Ketones Neg mg/dL (Negative) 03/09/17 17:50 Urine Blood Neg (Negative) 03/09/17 17:50 Urine Nitrite Neg (Negative) 03/09/17 17:50 Urine Bilirubin Neg (Negative) 03/09/17 17:50 Urine Urobilinogen < 2.0 mg/dL (<2.0) 03/09/17 17:50 Ur Leukocyte Esterase Lg (Negative) 03/09/17 17:50 Urine WBC (Auto) 7.0 /HPF (0.0-6.0) H 03/09/17 17:50 Urine RBC (Auto) 11.0 /HPF (0.0-6.0) 03/09/17 17:50 U Epithel Cells (Auto) 52.0 /HPF (0-13.0) H 03/09/17 17:50 Amorphous Crystals Few 03/09/17 17:50 potassium decrease from 7.2 to 5.8
[2017-03-12] MEDS: PERCOCET 5/325 PO PRN ×3 (02:29→21:58)
[2017-03-12] MEDS: CATAPRES PO SCH ×3 (08:50→21:58)
[2017-03-12] MEDS: ZOFRAN IV PRN ×2 (09:35→14:10)
[2017-03-12] MEDS ORDERED: NACL 0.9% 100 ML IV PRN (09:59)
[2017-03-12] MEDS: COREG PO SCH ×2 (10:10→21:58)
[2017-03-12] MEDS: PEPCID PO SCH ×2 (10:56→21:58)
[2017-03-12] MEDS: DELTASONE PO SCH (10:56)
[2017-03-12] MEDS: PLAQUENIL PO SCH (10:56)
[2017-03-12] MEDS: RENVELA PO SCH ×3 (10:56→22:01)
[2017-03-12] MEDS: PLAVIX PO SCH (10:57)
[2017-03-12] MEDS: HEPARIN SUB-Q SCH (10:57)
[2017-03-12] MEDS: ASPIRIN PO SCH (10:59)
--- NOTE | 2017-03-12 12:04 | Progress Note ---
Assessment and Plan - Patient Problems (1) ESRD (end stage renal disease) on dialysis Current Visit: Yes Status: Chronic Plan to address problem: HD today for clearance and volume removal renally dose meds strict I&O daily weight renal diet (2) Hyperkalemia Current Visit: Yes Status: Acute Plan to address problem: HD today (3) Hypertensive CKD, ESRD on dialysis Current Visit: No Status: Acute Plan to address problem: will adjust meds as needed Subjective Date of service: 03/12/17 Principal diagnosis: Symptomatic Hyperkalemia; ESRD on Dialysis Interval history: cont to have mild abd pain with nausea Objective - Vital Signs Vital signs: Vital Signs - 12hr 03/12/17 03/12/17 03/12/17 00:24 04:38 08:00 Temperature 98.3 F 98.2 F 98.9 F Pulse Rate [ 72 90 From Monitor] Pulse Rate [ 91 H Left Radial] Respiratory 20 18 14 Rate Blood Pressure 139/83 144/88 137/82 [Left Radial Artery] O2 Sat by Pulse 96 99 100 Oximetry - General Appearance General appearance: well-developed, well-nourished, appears stated age EENT: ATNC, PERRL, mucous membranes moist Neck: no JVD, no carotid bruit Respiratory: Present: Clear to Ascultation Cardiology: regular, S1S2 Gastrointestinal: normoactive bowel sounds, no tenderness, no distended, no masses Integumentary: no rash, warm and dry Neurologic: no focal deficit, no asterixis, alert and oriented x3 Musculoskeletal: other (no edema in BLE) Psychiatric: mood/affect appropriate, cooperative - Lab 03/10/17 07:13 03/11/17 11:02 Most recent lab results Calcium 9.8 mg/dL (8.4-10.2) 03/11/17 11:02
--- NOTE | 2017-03-12 15:34 | Progress Note ---
Assessment and Plan Assessment and plan: End-stage renal disease on hemodialysis Hemodialysis noncompliant Hyperkalemia Atypical chest pain Uncontrolled hypertension Non compliant -Patient's potassium 5.8 yesterday, BMP is not collected this morning, will continue hemodialysis -She has elevated troponin level and chest pain, EKG were negative for [place], cardiology evaluated her and ruled out [place] (inthe setting of ESRD) -Continue blood pressure medications -Counseled about compliance with dialysis and medication adherence - Discontinue the Iv narcotics - GI consult placed Prophylaxis Heparin Disposition - will discharge her tomorrow History Interval history: Patient was seen and evaluated this morning, patient was alert and oriented. She still complains pain, nausea and vomiting. Patient doesn't want to go home. Hospitalist Physical - Physical exam Narrative exam: Not in cardiopulmonary distress. Patient doesn't look in severe pain. Vital signs as documented. Head exam is unremarkable. No scleral icterus . Neck is without jugular venous distension, thyromegaly, or carotid bruits. Lungs are clear to auscultation. Cardiac exam reveals regular rate and Rhythm. First and second heart sounds normal. No murmurs, rubs or gallops. Abdominal exam reveals normal bowel sounds, no masses, no organomegaly and no aortic enlargement. Extremities are nonedematous and both femoral and pedal pulses are normal. 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 - Constitutional Vitals: Temp Pulse Resp BP Pulse Ox 98.9 F 91 H 14 137/82 100 03/12/17 08:00 03/12/17 08:00 03/12/17 08:00 03/12/17 08:00 03/12/17 08:00 General appearance: Present: no acute distress Results - Labs CBC & Chem 7: 03/10/17 07:13 03/11/17 11:02 Labs: Laboratory Last Values WBC 7.9 K/mm3 (4.5-11.0) 03/10/17 07:13 RBC 3.99 M/mm3 (3.65-5.03) 03/10/17 07:13 Hgb 11.7 gm/dl (10.1-14.3) 03/10/17 07:13 Hct 36.6 % (30.3-42.9) 03/10/17 07:13 MCV 92 fl (79-97) 03/10/17 07:13 MCH 29 pg (28-32) 03/10/17 07:13 MCHC 32 % (30-34) 03/10/17 07:13 RDW 15.5 % (13.2-15.2) H 03/10/17 07:13 Plt Count 237 K/mm3 (140-440) 03/10/17 07:13 Lymph % (Auto) 25.1 % (13.4-35.0) 03/10/17 07:13 [place] % (Auto) 15.0 % (0.0-7.3) H 03/10/17 07:13 Eos % (Auto) 4.4 % (0.0-4.3) H 03/10/17 07:13 Baso % (Auto) 0.9 % (0.0-1.8) 03/10/17 07:13 Lymph # 2.0 K/mm3 (1.2-5.4) 03/10/17 07:13 [place] # 1.2 K/mm3 (0.0-0.8) H 03/10/17 07:13 Eos # 0.3 K/mm3 (0.0-0.4) 03/10/17 07:13 Baso # 0.1 K/mm3 (0.0-0.1) 03/10/17 07:13 Seg Neutrophils % 54.6 % (40.0-70.0) 03/10/17 07:13 Seg Neutrophils # 4.3 K/mm3 (1.8-7.7) 03/10/17 07:13 Sodium 138 mmol/L (137-145) 03/11/17 11:02 Potassium 5.8 mmol/L (3.6-5.0) H 03/11/17 11:02 Chloride 94.4 mmol/L (98-107) L 03/11/17 11:02 Carbon Dioxide 26 mmol/L (22-30) 03/11/17 11:02 Anion Gap 23 mmol/L 03/11/17 11:02 BUN 29 mg/dL (7-17) H 03/11/17 11:02 Creatinine 7.7 mg/dL (0.7-1.2) H 03/11/17 11:02 Estimated GFR 7 ml/min 03/11/17 11:02 BUN/Creatinine Ratio 3.76 % 03/11/17 11:02 Glucose 118 mg/dL (65-100) H 03/11/17 11:02 POC Glucose 78 (70-105) 03/09/17 10:32 Calcium 9.8 mg/dL (8.4-10.2) 03/11/17 11:02 Total Creatine Kinase 101 units/L (30-135) 03/09/17 08:15 CK-MB (CK-2) 2.3 ng/mL (0.0-4.0) 03/09/17 08:15 CK-MB (CK-2) Rel Index 2.2 (0-4) 03/09/17 08:15 Troponin T 0.055 ng/mL (0.00-0.029) H D 03/09/17 08:15 Triglycerides 191 mg/dL (2-149) H 03/08/17 21:53 Cholesterol 168 mg/dL (50-199) 03/08/17 21:53 LDL Cholesterol Direct 95 mg/dL (50-130) 03/08/17 21:53 HDL Cholesterol 35 mg/dL (40-59) L 03/08/17 21:53 Cholesterol/HDL Ratio 4.80 % 03/08/17 21:53 Urine Color Yellow (Yellow) 03/09/17 17:50 Urine Turbidity Cloudy (Clear) 03/09/17 17:50 Urine pH 8.0 (5.0-7.0) H 03/09/17 17:50 Ur Specific [place] 1.009 (1.003-1.030) 03/09/17 17:50 Urine Protein 100 mg/dl mg/dL (Negative) 03/09/17 17:50 Urine Glucose (UA) 50 mg/dL (Negative) 03/09/17 17:50 Urine Ketones Neg mg/dL (Negative) 03/09/17 17:50 Urine Blood Neg (Negative) 03/09/17 17:50 Urine Nitrite Neg (Negative) 03/09/17 17:50 Urine Bilirubin Neg (Negative) 03/09/17 17:50 Urine Urobilinogen < 2.0 mg/dL (<2.0) 03/09/17 17:50 Ur Leukocyte Esterase Lg (Negative) 03/09/17 17:50 Urine WBC (Auto) 7.0 /HPF (0.0-6.0) H 03/09/17 17:50 Urine RBC (Auto) 11.0 /HPF (0.0-6.0) 03/09/17 17:50 U Epithel Cells (Auto) 52.0 /HPF (0-13.0) H 03/09/17 17:50 Amorphous Crystals Few 03/09/17 17:50
--- NOTE | 2017-03-12 15:41 | Gastroenterology Consultation ---
History of Present Illness - Reason for Consult Consult date: 03/12/17 Abdominal pain, nausea/vomiting Requesting physician: LUTHER LARSEN - History of Present Illness The patient is a 31-year-old female with multiple medical problems including systemic lupus erythematosus, coronary disease with a history of an AK in 2011, end-stage renal disease on dialysis and hypertension and obesity. Consultation has been requested for persistent nausea and vomiting of 10 days duration. The patient describes mild to moderate, intermittent upper abdominal pain as well. She has no prior history of peptic ulcer disease although did have a spell of abdominal pain, nausea and vomiting several years ago requiring hospitalization from off. She is not diabetic. The patient reports quitting smoking recently. There is no history of weight loss. Past History Past Medical History: dialysis, ESRD, hypertension, other (systemic lupus erythematosus) Past Surgical History: cholecystectomy, Other (vascular shunt for halitosis) Social history: denies: smoking, alcohol abuse, prescription drug abuse Family history: no significant family history Medications and Allergies Allergies Allergy/AdvReac Type Severity Reaction Status Date / Time hydrocodone bitartrate Allergy Itching Verified 05/15/16 02:00 [From Vicodin] morphine Allergy Itching Verified 05/15/16 02:00 tramadol Allergy Hives Verified 05/15/16 02:00 metoclopramide HCl AdvReac Unknown Verified 05/15/16 02:00 [From Reglan] Home Medications Medication Instructions Recorded Confirmed Last Taken Type Aspirin [Aspirin TAB] 325 mg PO QDAY #30 tablet 06/24/15 12/19/16 1 Day Ago Rx Clopidogrel [Plavix] 75 mg PO DAILY #30 tablet 06/24/15 09/26/16 1 Day Ago Rx Sevelamer HCl [Renagel] 800 mg PO TIDWM #30 tablet 06/24/15 12/19/16 1 Day Ago Rx Carvedilol [Coreg] 25 mg PO BID #60 tablet 07/29/15 12/19/16 1 Day Ago Rx Hydroxychloroquine [Plaquenil] 200 mg PO QDAY tablet 07/29/15 12/19/16 1 Day Ago Rx cloNIDine [Catapres] 0.3 mg PO TID 30 Days 07/29/15 09/26/16 1 Day Ago Rx predniSONE [Deltasone] 10 mg PO QAM 09/23/15 12/19/16 1 Day Ago History Famotidine [Pepcid] 20 mg PO BID #60 tablet 09/26/16 12/19/16 Unknown Rx AtorvaSTATin [Lipitor] 40 mg PO QHS #30 tablet 11/18/16 12/19/16 Unknown Rx oxyCODONE /ACETAMINOPHEN [Percocet 1 tab PO QHS PRN #7 tablet 11/18/16 12/19/16 Unknown Rx 5/325] Active Meds: Active Medications Acetaminophen (Tylenol) 650 mg PO Q4H PRN PRN Reason: For Pain/Fever/Headache Aspirin (Aspirin) 325 mg PO QDAY [facility] Last Admin: 03/12/17 10:59 Dose: 325 mg Atorvastatin Calcium (Lipitor) 40 mg PO QHS [facility] Last Admin: 03/11/17 21:00 Dose: 40 mg Carvedilol (Coreg) 25 mg PO BID [facility] Last Admin: 03/11/17 21:00 Dose: 25 mg Clonidine HCl (Catapres) 0.3 mg PO TID [facility] Last Admin: 03/11/17 20:57 Dose: 0.3 mg Famotidine (Pepcid) 10 mg PO BID [facility] Last Admin: 03/12/17 10:56 Dose: 10 mg Hydralazine HCl (Apresoline) 20 mg IV Q4HR PRN PRN Reason: Hypertension Hydroxychloroquine Sulfate (Plaquenil) 200 mg PO QDAY [facility] Last Admin: 03/12/17 10:56 Dose: 200 mg Sodium Chloride (Nacl 0.9%) 100 mls @ 999 mls/hr IV JOSEPH PRN PRN Reason: Hypotension Ondansetron HCl (Zofran) 4 mg IV Q4H PRN PRN Reason: Nausea And Vomiting Last Admin: 03/12/17 14:10 Dose: 4 mg Oxycodone/Acetaminophen (Percocet 5/325) 2 tab PO Q6H PRN PRN Reason: Pain Last Admin: 03/12/17 14:10 Dose: 2 tab Prednisone (Deltasone) 10 mg PO QAM [facility] Last Admin: 03/12/17 10:56 Dose: 10 mg Promethazine HCl (Phenergan) 25 mg PO Q6H PRN PRN Reason: Nausea And Vomiting Last Admin: 03/11/17 11:50 Dose: 25 mg Sevelamer Carbonate (Renvela) [facility] [place] Last Admin: 03/12/17 14:09 Dose: 800 mg Temazepam (Restoril) 15 mg PO QHS PRN PRN Reason: Insomnia Last Admin: 03/09/17 22:52 Dose: 15 mg Review of Systems - Review of Systems Constitutional: no weight loss, no weight gain, no fever Eyes: no change in vision Ears, Nose, Throat: no decreased hearing, no difficulty swallowing, no epistaxis , no painful swallowing Breasts: deferred Cardiovascular: no chest pain, no shortness of breath, no syncope Respiratory: no cough, no shortness of breath, no wheezing, no home oxygen Gastrointestinal: abdominal pain, nausea, vomiting, constipation, no hematemesis , no melena, no hematochezia Rectal: no pain, no incontinence, no bleeding Female Genitourinary: deferred Musculoskeletal: no gait dysfunction, no joint pain, no muscle pain Integumentary: no rash, no pruritis, no jaundice Neurological: no head injury, no paralysis, no weakness, no memory loss Psychiatric: no anxiety, no memory loss, no change in appetite, no suicidal ideation Endocrine: no cold intolerance, no heat intolerance Hematologic/Lymphatic: no easy bruising, no easy bleeding Allergic/Immunologic: no wheezing, no angioedema, no gluten intolerance Exam - Constitutional Vital Signs: Temp Pulse Resp BP Pulse Ox 98.9 F 91 H 14 137/82 100 03/12/17 08:00 03/12/17 08:00 03/12/17 08:00 03/12/17 08:00 03/12/17 08:00 General appearance: no acute distress, well-nourished, obese, other (multiple tattoos on the extremities and body piercings) - EENT Eyes: PERRL ENT: hearing intact, clear oral mucosa, dentition normal - Neck Neck: supple, normal ROM, no masses or JVD - Respiratory Respiratory effort: normal Respiratory: bilateral: CTA - Breasts Breasts: deferred - Cardiovascular Rhythm: regular Heart Sounds: Present: S1 & S2. Absent: gallop, rub Extremities: pulses intact, No edema, normal color, Full ROM - Gastrointestinal General gastrointestinal: Present: soft, non-tender, non-distended, normal bowel sounds, other (obese). Absent: hepatomegaly, splenomegaly, mass Rectal Exam: deferred - Genitourinary Female Genitourinary: deferred - Integumentary Integumentary: Present: clear, warm, dry - Musculoskeletal Musculoskeletal: normal - Neurologic Neurological: alert and oriented x3 - Psychiatric Psychiatric: appropriate mood/affect, intact judgment & insight, memory intact - Labs CBC & Chem 7: 03/10/17 07:13 03/11/17 11:02 Assessment and Plan - Patient Problems (1) ESRD (end stage renal disease) on dialysis Current Visit: Yes Status: Chronic (2) ESRD needing dialysis Current Visit: Yes Status: Chronic Plan to address problem: Dialysis is planned today per my discussion with the dialysis nurse. EGD will be therefore scheduled for tomorrow AM. (3) Hypertension Current Visit: Yes Status: Chronic Qualifiers: Hypertension type: H (4) Nausea and vomiting Current Visit: No Status: Acute Qualifiers: Vomiting type: V Vomiting Intractability: V Plan to address problem: Persistent nausea, vomiting and mid/upper abdominal pain. S/p cholecystectomy. Rule out PUD, partial GOO. Will plan EGD tomorrow as discussed at length with patient to allow risk profiling with Plavix and hopefully help management of persistent symptoms. Thank you very much Dr. Larsen for asking us to see her in consultation. (5) Secondary hyperparathyroidism (of renal origin) Current Visit: No Status: Acute (6) Systolic heart failure Current Visit: No Status: Acute Qualifiers: Heart failure chronicity: H (7) S/P PTCA (percutaneous transluminal coronary angioplasty) Current Visit: No Status: Chronic
[2017-03-12] MEDS ORDERED: NACL 0.9 (PRIMING MACHINE ONLY DIALYSIS) MC ONE (20:03)
--- NOTE | 2017-03-12 22:23 | Progress Note ---
Assessment and Plan Patient still complaining chest pain and shortness of breath.Patient is on room air . Placing her 2 litres O2. - Patient Problems (1) Chest pain Current Visit: Yes Status: Acute Qualifiers: Chest pain type: C Ischemic chest pain type: I Plan to address problem: Recommend to consult cardiology. (2) Shortness of breath Current Visit: Yes Status: Acute Plan to address problem: O2 2 litres via nasal canula. Albuterol/atrovent aerosol treatments q 6 hours Continue PO prednisone. ABGs on room air (3) ESRD (end stage renal disease) on dialysis Current Visit: Yes Status: Chronic Plan to address problem: Management as per nephrology. (4) Hypertension Current Visit: Yes Status: Chronic Qualifiers: Hypertension type: H Plan to address problem: Management as per primary care. Subjective Date of service: 03/12/17 Principal diagnosis: Symptomatic Hyperkalemia; ESRD on Dialysis Interval history: Patient still complaining chest pain and shortness of breath.Patient is on room air . Placing her 2 litres O2. Objective Vital Signs - 12hr 03/12/17 03/12/17 03/12/17 14:00 15:45 16:00 Temperature Pulse Rate 82 76 72 Respiratory Rate Blood Pressure 167/105 131/80 03/12/17 03/12/17 03/12/17 16:15 16:45 16:51 Temperature 98.0 F Pulse Rate 61 87 76 Respiratory 20 Rate Blood Pressure 136/86 119/80 167/105 03/12/17 03/12/17 03/12/17 17:00 17:15 17:30 Temperature Pulse Rate 83 84 85 Respiratory Rate Blood Pressure 119/69 101/68 99/64 03/12/17 03/12/17 03/12/17 17:45 18:00 18:15 Temperature Pulse Rate 88 92 H 86 Respiratory Rate Blood Pressure 100/66 92/59 102/63 03/12/17 20:03 Temperature 97.2 F L Pulse Rate 74 Respiratory 20 Rate Blood Pressure 116/74 Constitutional: no acute distress, alert Eyes: non-icteric ENT: oropharynx moist Neck: supple, no lymphadenopathy Effort: mildly labored Ascultation: Bilateral: diminished breath sounds, rales (posterior bases) Cardiovascular: regular rate and rhythm Gastrointestinal: normoactive bowel sounds, soft, non-tender, non-distended Extremities: no cyanosis, pulses normal, no ischemia or petechiae Neurologic: normal mental status, non-focal exam, pupils equal and round, motor strength normal and Psychiatric: mood appropriate, affect normal CBC and BMP: 03/10/17 07:13 03/11/17 11:02 Abnormal lab findings: Abnormal Labs 03/09/17 03/09/17 03/09/17 00:29 01:15 04:06 RDW Rhea % (Auto) Eos % (Auto) Rhea # Potassium Chloride BUN Creatinine Glucose POC Glucose 48 L Calcium Troponin T 0.046 H D 0.071 H D Urine pH Urine WBC (Auto) U Epithel Cells (Auto) 03/09/17 03/09/17 03/09/17 08:15 08:15 08:15 RDW 15.7 H Rhea % (Auto) 11.3 H Eos % (Auto) Rhea # 1.0 H Potassium 5.8 H D Chloride 93.1 L BUN 34 H Creatinine 8.1 H Glucose POC Glucose Calcium Troponin T 0.055 H D Urine pH Urine WBC (Auto) U Epithel Cells (Auto) 03/09/17 03/10/17 03/10/17 17:50 07:13 07:13 RDW 15.5 H Rhea % (Auto) 15.0 H Eos % (Auto) 4.4 H Rhea # 1.2 H Potassium 7.2 H* D Chloride 94.0 L BUN 42 H Creatinine 10.4 H Glucose POC Glucose Calcium 10.3 H Troponin T Urine pH 8.0 H Urine WBC (Auto) 7.0 H U Epithel Cells (Auto) 52.0 H 03/11/17 11:02 RDW Rhea % (Auto) Eos % (Auto) Rhea # Potassium 5.8 H Chloride 94.4 L BUN 29 H Creatinine 7.7 H Glucose 118 H POC Glucose Calcium Troponin T Urine pH Urine WBC (Auto) U Epithel Cells (Auto)
[2017-03-13] MEDS: ATROVENT IH SCH ×4 (03:02→14:59)
[2017-03-13] MEDS: PROVENTIL IH SCH ×4 (03:02→14:59)
[2017-03-13 06:31] LABS: Potassium TNR mmol/L (3.6-5.0)
[2017-03-13 06:33] LABS: Anion Gap TNR mmol/L; Blood Urea Nitrogen TNR mg/dL (7-17); Carbon Dioxide TNR mmol/L (22-30); Chloride TNR mmol/L (98-107); Sodium TNR mmol/L (137-145)
[2017-03-13 06:34] LABS: BUN/Creatinine Ratio TNR; Calcium TNR mg/dL (8.4-10.2); Glucose TNR mg/dL (65-100)
--- NOTE | 2017-03-13 09:43 | Progress Note ---
Assessment and Plan - Patient Problems (1) ESRD (end stage renal disease) on dialysis Current Visit: Yes Status: Chronic Plan to address problem: no indication for HD today renally dose meds strict I&O daily weight renal diet (2) Hyperkalemia Current Visit: Yes Status: Acute Plan to address problem: labs are pending this AM (3) Hypertensive CKD, ESRD on dialysis Current Visit: No Status: Acute Plan to address problem: will adjust meds as needed (4) Nausea & vomiting Current Visit: Yes Status: Acute Qualifiers: Vomiting type: V Vomiting Intractability: V Plan to address problem: followed by GI, scheduled for EGD Subjective Date of service: 03/13/17 Principal diagnosis: Symptomatic Hyperkalemia; ESRD on Dialysis Interval history: tolerated HD yesterday but remains with nausea and vomiting Objective - Vital Signs Vital signs: Vital Signs - 12hr 03/12/17 03/13/17 03/13/17 22:00 01:29 04:43 Temperature 98.1 F 97.7 F Pulse Rate [ 97 H 83 From Monitor] Respiratory 18 20 20 Rate Blood Pressure 132/71 143/92 [Left Radial Artery] O2 Sat by Pulse 99 98 Oximetry 03/13/17 07:15 Temperature 98.1 F Pulse Rate [ 82 From Monitor] Respiratory 20 Rate Blood Pressure 143/77 [Left Radial Artery] O2 Sat by Pulse 99 Oximetry - General Appearance General appearance: well-developed, well-nourished EENT: ATNC, PERRL, mucous membranes dry Neck: no JVD, no carotid bruit Respiratory: Present: Clear to Ascultation. Absent: Rales, Ronchi Cardiology: regular, S1S2 Gastrointestinal: normoactive bowel sounds, no tenderness, no distended, no masses, obese Integumentary: no rash, warm and dry Neurologic: no focal deficit, no asterixis, alert and oriented x3 Musculoskeletal: other (no edema in BLE) Psychiatric: mood/affect appropriate, cooperative - Lab 03/10/17 07:13 03/13/17 05:28 Most recent lab results Calcium TNR 03/13/17 05:28
[2017-03-13] MEDS: CATAPRES PO SCH ×2 (10:31→16:41)
[2017-03-13] MEDS: RENVELA PO SCH ×2 (10:31→16:40)
[2017-03-13 11:53] LABS: ISTAT Base Excess 8; ISTAT DEVICE 0; ISTAT HCO3 32.6; ISTAT PCO2 49.6 (35-45); ISTAT PH 7.427 (7.35-7.45); ISTAT PO2 86 (80-105); ISTAT SO2 97; ISTAT TCO2 34
[2017-03-13] MEDS ORDERED: NACL 0.9% 1000 ML 1,000 ML IV SCH (13:00)
--- NOTE | 2017-03-13 13:01 | Progress Note ---
Assessment and Plan Assessment and plan: Nausea and Vomiting persisting. Still vomiting. For EGD today End-stage renal disease on hemodialysis. Nephrology following Hemodialysis noncompliant Hyperkalemia. To repeat BMP today Atypical chest pain, non -cardiac. he was evaluated by cardiology Uncontrolled hypertension, improving. She is on Coreg, Clonidine and Hydralazine DVT prophylaxis. Heparin subcut History Interval history: Nausea, Vomiting, Abdominal pain Hospitalist Physical - Physical exam Narrative exam: Gen appearance: Not in acute distress,obese HEENT: Normocephalic, atraumatic Neck:supple, no JVD Lungs : Clear to auscultation bilaterally,no crackles or wheeze Heart :S1-S2 regular, no murmurs, rubs or gallop Abdomen: soft, tender, non-distended,normal bowel sounds Extremities:no edema no clubbing or cyanosis, Neuro: Awake alert oriented 3, no focal neurological signs - Constitutional Vitals: Temp Pulse Resp BP Pulse Ox 98 F 99 H 16 169/100 99 03/13/17 12:25 03/13/17 12:25 03/13/17 12:25 03/13/17 12:25 03/13/17 12:25 General appearance: Present: no acute distress Results - Labs CBC & Chem 7: 03/10/17 07:13 03/13/17 10:24 Labs: Laboratory Last Values WBC 7.9 K/mm3 (4.5-11.0) 03/10/17 07:13 RBC 3.99 M/mm3 (3.65-5.03) 03/10/17 07:13 Hgb 11.7 gm/dl (10.1-14.3) 03/10/17 07:13 Hct 36.6 % (30.3-42.9) 03/10/17 07:13 MCV 92 fl (79-97) 03/10/17 07:13 MCH 29 pg (28-32) 03/10/17 07:13 MCHC 32 % (30-34) 03/10/17 07:13 RDW 15.5 % (13.2-15.2) H 03/10/17 07:13 Plt Count 237 K/mm3 (140-440) 03/10/17 07:13 Lymph % (Auto) 25.1 % (13.4-35.0) 03/10/17 07:13 [place] % (Auto) 15.0 % (0.0-7.3) H 03/10/17 07:13 Eos % (Auto) 4.4 % (0.0-4.3) H 03/10/17 07:13 Baso % (Auto) 0.9 % (0.0-1.8) 03/10/17 07:13 Lymph # 2.0 K/mm3 (1.2-5.4) 03/10/17 07:13 [place] # 1.2 K/mm3 (0.0-0.8) H 03/10/17 07:13 Eos # 0.3 K/mm3 (0.0-0.4) 03/10/17 07:13 Baso # 0.1 K/mm3 (0.0-0.1) 03/10/17 07:13 Seg Neutrophils % 54.6 % (40.0-70.0) 03/10/17 07:13 Seg Neutrophils # 4.3 K/mm3 (1.8-7.7) 03/10/17 07:13 POC ABG pH 7.427 (7.35-7.45) 03/13/17 11:39 POC ABG pCO2 49.6 (35-45) H 03/13/17 11:39 POC ABG pO2 86 (80-105) 03/13/17 11:39 POC ABG HCO3 32.6 03/13/17 11:39 POC ABG Total CO2 34 03/13/17 11:39 POC ABG O2 Sat 97 03/13/17 11:39 POC ABG Base Excess 8 03/13/17 11:39 FiO2 21 % 03/13/17 11:39 Sodium 137 mmol/L (137-145) 03/13/17 10:24 Potassium TNR 03/13/17 05:28 Chloride 94.2 mmol/L (98-107) L 03/13/17 10:24 Carbon Dioxide 21 mmol/L (22-30) L 03/13/17 10:24 Anion Gap 28 mmol/L 03/13/17 10:24 BUN 26 mg/dL (7-17) H 03/13/17 10:24 Creatinine 6.6 mg/dL (0.7-1.2) H 03/13/17 10:24 Estimated GFR 9 ml/min 03/13/17 10:24 BUN/Creatinine Ratio 3.93 % 03/13/17 10:24 Glucose 82 mg/dL (65-100) 03/13/17 10:24 POC Glucose 78 (70-105) 03/09/17 10:32 Calcium 9.6 mg/dL (8.4-10.2) 03/13/17 10:24 Total Creatine Kinase 101 units/L (30-135) 03/09/17 08:15 CK-MB (CK-2) 2.3 ng/mL (0.0-4.0) 03/09/17 08:15 CK-MB (CK-2) Rel Index 2.2 (0-4) 03/09/17 08:15 Troponin T 0.055 ng/mL (0.00-0.029) H D 03/09/17 08:15 Triglycerides 191 mg/dL (2-149) H 03/08/17 21:53 Cholesterol 168 mg/dL (50-199) 03/08/17 21:53 LDL Cholesterol Direct 95 mg/dL (50-130) 03/08/17 21:53 HDL Cholesterol 35 mg/dL (40-59) L 03/08/17 21:53 Cholesterol/HDL Ratio 4.80 % 03/08/17 21:53 Urine Color Yellow (Yellow) 03/09/17 17:50 Urine Turbidity Cloudy (Clear) 03/09/17 17:50 Urine pH 8.0 (5.0-7.0) H 03/09/17 17:50 Ur Specific [place] 1.009 (1.003-1.030) 03/09/17 17:50 Urine Protein 100 mg/dl mg/dL (Negative) 03/09/17 17:50 Urine Glucose (UA) 50 mg/dL (Negative) 03/09/17 17:50 Urine Ketones Neg mg/dL (Negative) 03/09/17 17:50 Urine Blood Neg (Negative) 03/09/17 17:50 Urine Nitrite Neg (Negative) 03/09/17 17:50 Urine Bilirubin Neg (Negative) 03/09/17 17:50 Urine Urobilinogen < 2.0 mg/dL (<2.0) 03/09/17 17:50 Ur Leukocyte Esterase Lg (Negative) 03/09/17 17:50 Urine WBC (Auto) 7.0 /HPF (0.0-6.0) H 03/09/17 17:50 Urine RBC (Auto) 11.0 /HPF (0.0-6.0) 03/09/17 17:50 U Epithel Cells (Auto) 52.0 /HPF (0-13.0) H 03/09/17 17:50 Amorphous Crystals Few 03/09/17 17:50
--- NOTE | 2017-03-13 13:27 | Anesthesia Consultation ---
Anesthesia Consult and Med Hx Date of service: 03/13/17 - Airway Anesthetic Teeth Evaluation: Good, Partials, Edentulous ROM Head & Neck: Adequate Mental/Hyoid Distance: Adequate Mallampati Class: Class III Intubation Access Assessment: Possibly Difficult - Pulmonary Exam CTA: Yes - Cardiac Exam Cardiac Exam: RRR - Pre-Operative Health Status ASA Pre-Surgery Classification: ASA4 Proposed Anesthetic Plan: MAC - Pulmonary Hx Smoking: Yes (8 pk years. quit couple of months ago) Hx Asthma: No COPD: No Hx Pneumonia: No - Cardiovascular System Hx Hypertension: Yes Hx Coronary Artery Disease: Yes Hx Heart Attack/AMI: Yes (one stent 2011) Hx Angina: Yes Hx Heart Murmur: Yes - Central Nervous System Hx Seizures: No CVA: No Hx Psychiatric Problems: No - Gastrointestinal Hx Gastroesophageal Reflux Disease: No - Endocrine Hx Renal Disease: Yes (hemodialysis --) Hx End Stage Renal Disease: Yes Hx Liver Disease: No Hx Non-Insulin Dependent Diabetes: No Hx Hypothyroidism: No - Hematic Hx Anemia: Yes (chronic. On Epo) Hx Sickle Cell Disease: ( ) - Other Systems Hx Cancer: No Hx Obesity: Yes - Additional Comments Anesthesia Medical History Comments: ESRD. Dialysis yesterday. HTN. CAD. CHF 2012. NM 2012. Card Stents X 1 2011. Lupus on Prednisone 10
--- NOTE | 2017-03-13 13:28 | Anesthesia Day of Surgery ---
Anesthesia Day of Surgery - Day of Surgery Patient Examined: Yes Patient H&P Reviewed: Yes Patient is NPO: Yes Beta Blockers: Yes (within 24 hrs)
[2017-03-13] MEDS ORDERED: DIPRIVAN 10 MG/ML IV ONE ×2 (13:37)
[2017-03-13] MEDS ORDERED: WATER FOR IRRIG STERILE IR ONE (13:38)
[2017-03-13 13:56] LABS: Carbon Dioxide TNR mmol/L (22-30); Chloride TNR mmol/L (98-107); Potassium TNR mmol/L (3.6-5.0); Sodium TNR mmol/L (137-145)
[2017-03-13 13:57] LABS: Anion Gap TNR mmol/L; BUN/Creatinine Ratio TNR; Blood Urea Nitrogen TNR mg/dL (7-17); Calcium TNR mg/dL (8.4-10.2); Glucose TNR mg/dL (65-100)
--- NOTE | 2017-03-13 14:06 | Post Operative Note ---
Pre-op diagnosis: N/V Post-op diagnosis: other (Gastritis) Findings: 1. Normal duodenum 2. No gastric outlet obstruction 3. Mild erythema in the antrum (cold bx) but no ulcer or erosions 4. Normal esophagus Procedure: EGD with cold bx Anesthesia: MAC Surgeon: JOSELYN PAREDES Estimated blood loss: minimal Pathology: list (1. Gastric Antrum) Specimen disposition: to lab Condition: stable Disposition: floor (Recs: 1. Advance diet. 2. Consider Doppler US of the abdominal vessels (though CT 2014 (-) severe calcifications). 3. OK to d/c when taking PO. 4. Protonix daily therapy given gastritis.)
[2017-03-13] MEDS ORDERED: PROTONIX PO SCH (15:00)
[2017-03-13] MEDS: ASPIRIN PO SCH (16:39)
[2017-03-13] MEDS: DELTASONE PO SCH (16:40)
[2017-03-13] MEDS: PLAQUENIL PO SCH (16:40)
[2017-03-13] MEDS: COREG PO SCH (16:40)
--- NOTE | 2017-03-13 16:47 | Discharge Summary ---
Providers - Providers Date of Admission: 03/08/17 23:50 Attending physician: ADELITA KIDD 03/09/17 06:45 Consult to Physician [CONS] Routine Consulting Provider: DEL BENJAMIN Reason For Exam: ELEVATED TROPONIN WITH HISTORY OF CAD Place consult to:: ANSWERING SERVICE NOTIFY @[id number] SPOKE WITH DANIELSEAN SAMAYOA Notified:: YES Phone number called:: [phone] Was contact made?: No If yes, spoke with:: YES DANIEL Time called:: 06:59 03/09/17 11:10 Consult to Physician [CONS] Urgent Consulting Provider: BENTLEY JACOBSON Reason For Exam: critical care management Place consult to:: Notified:: yes Was contact made?: Yes 03/12/17 09:26 Consult to Physician [CONS] Routine Consulting Provider: ALONDRA SMALL Reason For Exam: abdominal pain, N/V Place consult to:: [facility] Notified:: office Phone number called:: [phone] Was contact made?: No Comment:: put on list phone line not working cutting off . will try again Primary care physician: PROPERTY ECONOMIST Hospitalization Condition: Stable Disposition: STILL A PATIENT Core Measure Documentation - Palliative Care Palliative Care/ Comfort Measures: Not Applicable Exam - Constitutional Vitals: Temp Pulse Resp BP Pulse Ox 98.2 F 86 16 151/89 94 03/13/17 14:04 03/13/17 14:32 03/13/17 14:32 03/13/17 14:32 03/13/17 14:32 Plan Follow up with: NEIL CLARK MD [Primary Care Provider] - 7 Days Forms: AMA Form
[2017-03-13 17:46] VITALS: BP 149/100
--- NOTE | 2017-03-13 18:57 | Operative Report ---
PROCEDURE PERFORMED: Esophagogastroduodenoscopy with cold biopsy. PREOPERATIVE DIAGNOSIS: Nausea and vomiting. POSTOPERATIVE DIAGNOSIS: Gastritis, but otherwise unremarkable. ENDOSCOPIST: Jossue Reinoso M.D. INSTRUMENT: Bebo video endoscope. MEDICATIONS: MAC anesthesia by Anesthesia Services. COMPLICATIONS: No apparent complications. ESTIMATED BLOOD LOSS: Minimal. SPECIMENS: Gastric antrum. PAST IMPLANTS: None. CONTROL CLERK: None. CONDITION AT COMPLETION: Stable. TECHNIQUE: The patient was informed of the risks and benefits of the procedure. She signed the informed consent to proceed. She was placed in the left lateral decubitus position. The above sedative medications were given. Her vital signs remained stable throughout the procedure. The instrument was advanced from mouth to the second portion of the duodenum under direct visualization. At that point, the bowel was insufflated and the endoscope was slowly withdrawn. FINDINGS: 1. Normal duodenum. 2. No evidence of gastric outlet obstruction. 3. Mild erythema in the antrum of the stomach, status post cold biopsy. 4. Normal esophagus. RECOMMENDATIONS: 1. Advance diet. 2. Okay to discharge home when taking oral diet. 3. Consider Doppler ultrasound of the abdominal vessels, although the CT scan in 2014 does not show severe calcifications. 4. Protonix daily therapy given her gastritis. JOB# [id number] HALINA/NTS
[2017-03-13] MEDS ORDERED: DUONEB 0.5 MG-3 MG/3 ML SOLN IH SCH (20:00)
[2017-03-13] MEDS ORDERED: HEPARIN SUB-Q SCH (22:00)
== END 2017-03-13 16:30 | disposition left against medical advice (07) | DRG 291 ==
LOC: ED 21:23 → CC1 23:50 → 4A 03-09 22:22
PROVIDERS: ADMIT Internal Medicine; ATTEND Internal Medicine
PROC: 5A1D60Z (ICD-10-PCS; principal; 2017-03-08)
PROC: 4A033R1 Measurement of Arterial Saturation, Peripheral, Percutaneous Approach (ICD-10-PCS; 2017-03-08)
PROC: 3E0234Z Introduction of Serum, Toxoid and Vaccine into Muscle, Percutaneous Approach (ICD-10-PCS; 2017-03-08)
PROC: 0DB68ZX Excision of Stomach, Via Natural or Artificial Opening Endoscopic, Diagnostic (ICD-10-PCS; 2017-03-13)
DX: I13.2 Hypertensive heart and chronic kidney disease with heart failure and with stage 5 chronic kidney disease, or end stage renal disease (principal); N18.6 End stage renal disease; E87.5 Hyperkalemia; E87.70 Fluid overload, unspecified; I25.10 Atherosclerotic heart disease of native coronary artery without angina pectoris; I11.0 Hypertensive heart disease with heart failure; M19.90 Unspecified osteoarthritis, unspecified site; M79.1 Myalgia; E78.5 Hyperlipidemia, unspecified; L93.0 Discoid lupus erythematosus; E66.9 Obesity, unspecified; I50.20 Unspecified systolic (congestive) heart failure; K29.70 Gastritis, unspecified, without bleeding; Z88.8 Allergy status to other drugs, medicaments and biological substances; Z88.6 Allergy status to analgesic agent; Z90.49 Acquired absence of other specified parts of digestive tract; Z98.891 History of uterine scar from previous surgery; Z98.61 Coronary angioplasty status; Z87.891 Personal history of nicotine dependence; Z91.15 Patient's noncompliance with renal dialysis; Z68.33 Body mass index [BMI] 33.0-33.9, adult; Z99.2 Dependence on renal dialysis; Z71.89 Other specified counseling
CPT/HCPCS: 36415; 36600; 71020; 80048; 80061; 81001; 82550; 82553; 82803; 82962; 84484; 85025; 88305; 88342; 90732; 93005; 93010; 94640; 96374; 96375; A9270-GY; J0360; J0610; J1170; J1644; J1815; J2405; J2704; J7030; J7512; Q0169

== ENCOUNTER 2017-06-07 21:43 | Inpatient (IN) | payer MEDICAID ==
[2017-06-07] MEDS ORDERED: CATAPRES ONE (22:20)
[2017-06-07 22:49] LABS: Basophils % (Auto) 0.2 % (0.0-1.8); Eosinophils % (Auto) 0.9 % (0.0-4.3); Hematocrit 34.2 % (30.3-42.9); Mean Corpuscular HGB Conc 32 % (30-34); Mean Corpuscular Hemoglobin 31 pg (28-32); Mean Corpuscular Volume 97 fl (79-97); Platelet Count 300 K/mm3 (140-440); Red Blood Count 3.53 M/mm3 (3.65-5.03); Red Cell Distribution Width 16.6 % (13.2-15.2); White Blood Count 8.3 K/mm3 (4.5-11.0)
[2017-06-07] MEDS ORDERED: CATAPRES PO ONE (23:00)
[2017-06-07 23:15] LABS: Albumin 3.8 g/dL (3.9-5); Albumin/Globulin Ratio 1.2 %; BUN/Creatinine Ratio 6.71; Bilirubin,Total 0.3 mg/dL (0.1-1.2); Calcium 9.2 mg/dL (8.4-10.2); Chloride 95.4 mmol/L (98-107)
[2017-06-07] MEDS ORDERED: CALCIUM GLUCONATE 2,000 MG in NACL 0.9% 100 ML IV ONE (23:57)
[2017-06-07] MEDS ORDERED: PROVENTIL IH ONE (23:58)
[2017-06-07] MEDS ORDERED: D50W (25GM) IV ONE (23:58)
--- NOTE | 2017-06-08 00:09 | Emergency Department Report ---
ED General Adult HPI - General Chief complaint: Abdominal Pain Stated complaint: CHEST PAIN, SHORTNESS OF BREATH, VOMITING Time Seen by Provider: 06/07/17 23:57 Source: patient Mode of arrival: Ambulatory Limitations: No Limitations - History of Present Illness Initial comments: Patient is a 32-year-old female history of end-stage renal disease who gets dialysis Sunday. Patient presents with chest pain as been going on for the last day. Patient states that her chest pain as an 8 out of 10 she states that nothing makes it better or worse. She states that it is an achy type of pain and small been associated with any nausea or vomiting. She states that the pain is constant. Patient denies any cough or any fever. Severity scale (0 -10): 3 - Related Data Home Medications Medication Instructions Recorded Confirmed Last Taken predniSONE [Deltasone] 10 mg PO QAM 09/23/15 06/08/17 1 Day Ago Previous Rx's Medication Instructions Recorded Last Taken Type Aspirin [Aspirin TAB] 325 mg PO QDAY #30 tablet 06/24/15 1 Day Ago Rx Clopidogrel [Plavix] 75 mg PO DAILY #30 tablet 06/24/15 1 Day Ago Rx Sevelamer HCl [Renagel] 800 mg PO TIDWM #30 tablet 06/24/15 1 Day Ago Rx Carvedilol [Coreg] 25 mg PO BID #60 tablet 07/29/15 1 Day Ago Rx Hydroxychloroquine [Plaquenil] 200 mg PO QDAY tablet 07/29/15 1 Day Ago Rx cloNIDine [Catapres] 0.3 mg PO TID 30 Days 07/29/15 1 Day Ago Rx Famotidine [Pepcid] 20 mg PO BID #60 tablet 09/26/16 Unknown Rx AtorvaSTATin [Lipitor] 40 mg PO QHS #30 tablet 11/18/16 Unknown Rx oxyCODONE /ACETAMINOPHEN [Percocet 1 tab PO QHS PRN #7 tablet 11/18/16 Unknown Rx 5/325] Allergies Allergy/AdvReac Type Severity Reaction Status Date / Time hydrocodone bitartrate Allergy Itching Verified 06/08/17 00:16 [From Vicodin] morphine Allergy Itching Verified 06/08/17 00:16 tramadol Allergy Hives Verified 06/08/17 00:16 metoclopramide HCl AdvReac Unknown Verified 06/08/17 00:16 [From [facility]] ED Review of Systems ROS: Stated complaint: CHEST PAIN, SHORTNESS OF BREATH, VOMITING Other details as noted in HPI Constitutional: denies: chills, fever Eyes: denies: eye pain, eye discharge, vision change ENT: denies: ear pain, throat pain Respiratory: denies: cough, shortness of breath, wheezing Cardiovascular: chest pain Endocrine: no symptoms reported Gastrointestinal: denies: abdominal pain, nausea, diarrhea Genitourinary: denies: urgency, dysuria, discharge Musculoskeletal: denies: back pain, joint swelling, arthralgia Skin: denies: rash, lesions Neurological: denies: headache, weakness, paresthesias Psychiatric: denies: anxiety, depression Hematological/Lymphatic: denies: easy bleeding, easy bruising ED Past Medical Hx - Past Medical History Previous Medical History?: Yes Hx Hypertension: Yes Hx Heart Attack/AMI: Yes (one stent 2011) Hx Congestive Heart Failure: Yes Hx Diabetes: No Hx Liver Disease: No Hx Renal Disease: Yes (hemodialysis ) Hx Sickle Cell Disease: ( ) Hx Arthritis: Yes Hx Seizures: No Hx Asthma: No Hx COPD: No Hx HIV: No Additional medical history: Lupus - Surgical History Past Surgical History?: Yes Hx Coronary Stent: Yes Hx Cholecystectomy: Yes Additional Surgical History: bilat total hips, right av fistula, - Social History Smoking Status: Never Smoker Substance Use Type: None - Medications Home Medications: Home Medications Medication Instructions Recorded Confirmed Last Taken Type Aspirin [Aspirin TAB] 325 mg PO QDAY #30 tablet 06/24/15 06/08/17 1 Day Ago Rx Clopidogrel [Plavix] 75 mg PO DAILY #30 tablet 06/24/15 06/08/17 1 Day Ago Rx Sevelamer HCl [Renagel] 800 mg PO TIDWM #30 tablet 06/24/15 06/08/17 1 Day Ago Rx Carvedilol [Coreg] 25 mg PO BID #60 tablet 07/29/15 06/08/17 1 Day Ago Rx Hydroxychloroquine [Plaquenil] 200 mg PO QDAY tablet 07/29/15 06/08/17 1 Day Ago Rx cloNIDine [Catapres] 0.3 mg PO TID 30 Days 07/29/15 06/08/17 1 Day Ago Rx predniSONE [Deltasone] 10 mg PO QAM 09/23/15 06/08/17 1 Day Ago History Famotidine [Pepcid] 20 mg PO BID #60 tablet 09/26/16 06/08/17 Unknown Rx AtorvaSTATin [Lipitor] 40 mg PO QHS #30 tablet 11/18/16 06/08/17 Unknown Rx oxyCODONE /ACETAMINOPHEN [Percocet 1 tab PO QHS PRN #7 tablet 11/18/16 06/08/17 Unknown Rx 5/325] ED Physical Exam - General Limitations: No Limitations General appearance: alert, in no apparent distress - Head Head exam: Present: atraumatic, normocephalic - Eye Eye exam: Present: normal appearance - ENT ENT exam: Present: mucous membranes moist - Respiratory Respiratory exam: Present: normal lung sounds bilaterally - Cardiovascular Cardiovascular Exam: Present: regular rate - GI/Abdominal GI/Abdominal exam: Present: soft, normal bowel sounds - Extremities Exam Extremities exam: Present: normal inspection - Back Exam Back exam: Present: normal inspection - Neurological Exam Neurological exam: Present: alert, oriented X3 - Psychiatric Psychiatric exam: Present: normal affect, normal mood - Skin Skin exam: Present: warm, dry, intact, normal color. Absent: rash ED Course Vital Signs 06/07/17 06/07/17 06/08/17 21:55 22:20 00:12 Temperature 98.7 F Pulse Rate 85 85 78 Pulse Rate [ Bilateral Throughout] Respiratory 18 20 Rate Respiratory Rate [Bilateral Throughout] Blood Pressure 188/124 Blood Pressure 188/124 153/94 [Right] O2 Sat by Pulse 99 100 Oximetry 06/08/17 06/08/17 06/08/17 02:29 03:04 03:43 Temperature Pulse Rate 75 Pulse Rate [ 69 76 Bilateral Throughout] Respiratory 16 Rate Respiratory 18 20 Rate [Bilateral Throughout] Blood Pressure Blood Pressure 150/75 [Right] O2 Sat by Pulse 99 Oximetry - Reevaluation(s) Reevaluation #1: 06/08/17 00:09 Discussed with patient that her potassium is very elevated. We'll call nephrology for emergent dialysis. Reevaluation #2: 06/08/17 03:06 Reevaluated patient discussed with neurosurgery research director patient will get emergent dialysis in the morning and discuss plan with patient. - Consultations Consultation #1: 06/08/17 02:[address]Agbogu about emergent dialysis she said since there are no peak T waves on EKG just to give medications repeat the potassium and give patient Kayexalate. He states the patient will get urgent dialysis in the morning. ED Medical Decision Making - Lab Data Result diagrams: 06/07/17 22:34 06/08/17 01:34 Laboratory Results - last 24 hr 06/07/17 06/07/17 06/07/17 22:34 22:34 22:34 WBC 8.3 RBC 3.53 L Hgb 11.0 Hct 34.2 MCV 97 MCH 31 MCHC 32 RDW 16.6 H Plt Count 300 Lymph % (Auto) 32.3 [place] % (Auto) 11.2 H Eos % (Auto) 0.9 Baso % (Auto) 0.2 Lymph # 2.7 [place] # 0.9 H Eos # 0.1 Baso # 0.0 Seg Neutrophils % 55.4 Seg Neutrophils # 4.6 Sodium 137 Potassium 8.0 H* Chloride 95.4 L Carbon Dioxide 21 L Anion Gap 28 BUN 90 H Creatinine 13.4 H Estimated GFR 4 BUN/Creatinine Ratio 6.71 Glucose 74 Calcium 9.2 Total Bilirubin 0.30 AST 13 ALT 24 Alkaline Phosphatase 101 Total Creatine Kinase CK-MB (CK-2) CK-MB (CK-2) Rel Index Troponin T 0.047 H Total Protein 7.0 Albumin 3.8 L Albumin/Globulin Ratio 1.2 Triglycerides 316 H Cholesterol 185 LDL Cholesterol Direct 83 HDL Cholesterol 39 L Cholesterol/HDL Ratio 4.74 Lipase 101 H HCG, Qual Negative 06/08/17 06/08/17 01:34 03:28 WBC RBC Hgb Hct MCV MCH MCHC RDW Plt Count Lymph % (Auto) [place] % (Auto) Eos % (Auto) Baso % (Auto) Lymph # [place] # Eos # Baso # Seg Neutrophils % Seg Neutrophils # Sodium Potassium 7.8 H* Chloride Carbon Dioxide Anion Gap BUN Creatinine Estimated GFR BUN/Creatinine Ratio Glucose Calcium Total Bilirubin AST ALT Alkaline Phosphatase Total Creatine Kinase 62 CK-MB (CK-2) 1.5 CK-MB (CK-2) Rel Index 2.4 Troponin T Total Protein Albumin Albumin/Globulin Ratio Triglycerides Cholesterol LDL Cholesterol Direct HDL Cholesterol Cholesterol/HDL Ratio Lipase HCG, Qual - EKG Data -: EKG Interpreted by Me - EKG Data 06/08/17 04:06 EKG shows normal sinus rhythm no ST segment elevation or T-wave inversions signs of LVH - Radiology Data Chest x-ray shows mild cardiac enlargement. - Medical Decision Making Chief medical diagnosis: Hyperkalemia secondary to end-stage renal disease Differential medical diagnoses: Metabolic abnormality, and non-STEMI, uremia We'll get CBC CMP cxr EKG troponin we'll give hyperkalemia protocol will give Kayexalate and insulin dextrose calcium chloride and albuterol Due to patient not getting dialysis for one week will admit patient for medical management for her life-threatening condition. Critical Care Time: Yes Critical care time in (mins) excluding proc time.: 30 Critical care attestation.: If time is entered above; I have spent that time in minutes in the direct care of this critically ill patient, excluding procedure time. Critical care time spent with patient 20 minutes Critical care time spent over looking lab findings 5 minutes Critical care time spent with consultants 5 minutes critical care time spent with family at 0 minutes ED Disposition Clinical Impression: Elevated troponin, Hyperkalemia, ESRD (end stage renal disease) on dialysis Chest pain Qualifiers: Chest pain type: other chest pain Qualified Code(s): R07.89 - Other chest pain ; R07.8 - Other chest pain Hypertension Qualifiers: Hypertension type: unspecified Qualified Code(s): I10 - Essential (primary) hypertension Disposition: OP ADMIT IP TO THIS HOSP Is pt being admited?: Yes Does the pt Need Aspirin: No Condition: Stable Instructions: Abdominal Pain (ED), Hypertension (ED), Chest Pain (ED) Referrals: PRIMARY CARE, [Primary Care Provider] - 3-5 Days Time of Disposition: 04:12
[2017-06-08] MEDS ORDERED: ASPIRIN PO ONE (00:14)
--- NOTE | 2017-06-08 00:14 | XRay Report ---
FINAL REPORT EXAM: XR CHEST ROUTINE 2V HISTORY: Shortness of breath, Preg test ordered COMPARISON: October 2015. FINDINGS:: Frontal and lateral views of the chest obtained. Stable mild cardiac enlargement and tortuosity of the thoracic aorta. No focal consolidation or effusion. No pneumothorax. Visualized bony thorax is grossly intact. IMPRESSION:: Mild cardiac enlargement. Lungs are grossly clear.
[2017-06-08] MEDS ORDERED: KIONEX PO ONE (00:15)
[2017-06-08] MEDS ORDERED: SUBLIMAZE IV ONE ×2 (01:23)
[2017-06-08] MEDS ORDERED: PROVENTIL IH ONE (02:26)
[2017-06-08] MEDS ORDERED: SODIUM BICARBONATE IV ONE ×2 (02:55)
[2017-06-08] MEDS ORDERED: TYLENOL PO PRN (02:56)
[2017-06-08] MEDS ORDERED: DULCOLAX PR PRN (02:56)
[2017-06-08] MEDS ORDERED: ZOFRAN IV PRN (02:56)
[2017-06-08] MEDS ORDERED: MILK OF MAGNESIA PO PRN (02:56)
[2017-06-08] MEDS ORDERED: APRESOLINE IV PRN (02:59)
--- NOTE | 2017-06-08 02:59 | History and Physical Report ---
History of Present Illness Date of examination: 06/08/17 History of present illness: 31-year-old woman with a history of CAD, hypertension, CHF, hypertension, lupus , end-stage renal disease on dialysis, Sunday, and Sunday came to the emergency room with complaints of shortness of breath. She missed 2 days of dialysis. Also complain of chest pain in the left substernal area which she describes as a sharp pain, intermittent in nature lasting for less than 5 minutes, intensity 5/10, no radiatiion, and she cannot identify exacerbating or relieving factors. She admits to nausea, vomiting, shortness of breath, no diaphoresis or palpitation. Review of systems Constitutional: no fever, no chills, no weight loss Ears, eyes, nose, mouth and throat: no nasal congestion, no nasal discharge, no sinus pressure, no vision change, no red eye. Neck: No neck pain or rigidity. Cardiovascular: no orthopnea, no palpitations, no leg swelling Respiratory: No cough, no congestion, no wheezing Gastrointestinal: abdominal pain, hematochezia Genitourinary : no dysuria, frequency , no hematuria Musculoskeletal: no joint swelling or muscle ache Integumentary: no rash, no pruritis Neurological: no parathesias, no numbness, no focal weakness Endocrine: no cold or heat intolerance, no polyuria or polydipsia Hematologic/Lymphatic: no easy bruising, no easy bleeding, no gland swelling Allergic/Immunologic: no urticaria, no angioedema. PAST MEDICAL HISTORY: CAD, hypertension, CHF, hypertension, lupus, end-stage renal disease on dialysis PAST SURGICAL HISTORY: AV fistula, hip replacement 3, cholecystectomy, hernia repair, SOCIAL HISTORY: Denies alcohol, tobacco, drugs FAMILY HISTORY: Hypertension, diabetes Medications and Allergies Allergies Allergy/AdvReac Type Severity Reaction Status Date / Time hydrocodone bitartrate Allergy Itching Verified 06/08/17 00:16 [From Vicodin] morphine Allergy Itching Verified 06/08/17 00:16 tramadol Allergy Hives Verified 06/08/17 00:16 metoclopramide HCl AdvReac Unknown Verified 06/08/17 00:16 [From Reglan] Home Medications Medication Instructions Recorded Confirmed Last Taken Type Aspirin [Aspirin TAB] 325 mg PO QDAY #30 tablet 06/24/15 06/08/17 1 Day Ago Rx Clopidogrel [Plavix] 75 mg PO DAILY #30 tablet 06/24/15 06/08/17 1 Day Ago Rx Sevelamer HCl [Renagel] 800 mg PO TIDWM #30 tablet 06/24/15 06/08/17 1 Day Ago Rx Carvedilol [Coreg] 25 mg PO BID #60 tablet 07/29/15 06/08/17 1 Day Ago Rx Hydroxychloroquine [Plaquenil] 200 mg PO QDAY tablet 07/29/15 06/08/17 1 Day Ago Rx cloNIDine [Catapres] 0.3 mg PO TID 30 Days 07/29/15 06/08/17 1 Day Ago Rx predniSONE [Deltasone] 10 mg PO QAM 09/23/15 06/08/17 1 Day Ago History Famotidine [Pepcid] 20 mg PO BID #60 tablet 09/26/16 06/08/17 Unknown Rx AtorvaSTATin [Lipitor] 40 mg PO QHS #30 tablet 11/18/16 06/08/17 Unknown Rx oxyCODONE /ACETAMINOPHEN [Percocet 1 tab PO QHS PRN #7 tablet 11/18/16 06/08/17 Unknown Rx 5/325] Active Meds: Active Medications Acetaminophen (Tylenol) 650 mg PO Q4H PRN PRN Reason: Pain MILD(1-3)/Fever >100.5/MEJIA Bisacodyl (Dulcolax) 10 mg ME QDAY PRN PRN Reason: Constipation unrelieved by MOM Enoxaparin Sodium (Lovenox) 30 mg SUB-Q QDAY ADIA Magnesium Hydroxide (Milk Of Magnesia) 30 ml PO Q4H PRN PRN Reason: Constipation Ondansetron HCl (Zofran) 4 mg IV Q8H PRN PRN Reason: N/V unrelieved by Reglan Oxycodone/Acetaminophen (Percocet 5/325) 1 tab PO Q6H PRN PRN Reason: Pain, Moderate (4-6) Exam - Physical Exam Narrative exam: Gen. appearance: Patient lying in bed, no apparent distress HEENT: Normocephalic, atraumatic, pupils equally round and reactive to light, extraocular movement intact, and no sclericterus,. No JVD or thyromegaly or nodule,neck supple, no carotid bruit ,mucous membranes moist, no exudate or erythema Heart: S1, S2, regular rate and rhythm Lungs: Clear to auscultation bilaterally, breathing comfortable Abdomen: Positive bowel sounds, nontender, nondistended, no organomegaly Extremity: No edema, cyanosis, clubbing Skin: No rash, nodules, warm, dry Neuro: Oriented 3, cranial nerves II-12 intact, speech is fluent, motor and sensory intact - Constitutional Vitals: Temp Pulse Resp BP Pulse Ox 98.7 F 69 18 153/94 100 06/07/17 21:55 06/08/17 02:29 06/08/17 02:29 06/08/17 00:12 06/08/17 00:12 Results - Labs CBC & Chem 7: 06/07/17 22:34 06/08/17 01:34 Labs: Abnormal lab results 06/07/17 06/07/17 06/08/17 Range/Units 22:34 22:34 01:34 RBC 3.53 L (3.65-5.03) M/mm3 RDW 16.6 H (13.2-15.2) % [place] % (Auto) 11.2 H (0.0-7.3) % [place] # 0.9 H (0.0-0.8) K/mm3 Potassium 8.0 H* 7.8 H* (3.6-5.0) mmol/L Chloride 95.4 L (98-107) mmol/L Carbon Dioxide 21 L (22-30) mmol/L BUN 90 H (7-17) mg/dL Creatinine 13.4 H (0.7-1.2) mg/dL Troponin T 0.047 H (0.00-0.029) ng/mL Albumin 3.8 L (3.9-5) g/dL Triglycerides 316 H (2-149) mg/dL HDL Cholesterol 39 L (40-59) mg/dL Lipase 101 H (13-60) units/L - Imaging and Cardiology EKG: image reviewed Chest x-ray: image reviewed Assessment and Plan Assessment Severe Hyperkalemia Unstable angina CAD Hypertension, uncontrolled ESRD, need dialysis Lupus CHF, stable Plan Admit to medicine Renal is consulted for emergent dialysis, status post hyperkalemia cocktail Give d50 and insulin, bicarbonate and calcium, Check cardiac enzymes, consult cardiology Continue appropiate outpatient medications Start dvt prophalaxis
[2017-06-08] MEDS: PERCOCET 5/325 PO PRN (03:32)
[2017-06-08 04:03] LABS: Creatine Kinase MB 1.5 ng/mL (0.0-4.0)
[2017-06-08] MEDS: DILAUDID IV PRN ×4 (06:24→20:22)
--- NOTE | 2017-06-08 07:53 | Admit Criteria Form ---
Admission Criteria Documentation: GENERAL ADMISSION CRITERIA (Place 'X' for any and all applicable criteria): Admission is indicated for ANY ONE of the following: [ ]I. Hemodynamic instability as indicated by ANY ONE of the following(1)(2) (3)(4)(5): [ ]a) Vital sign abnormality not readily corrected by appropriate treatment within 12 to 24 hours indicated by ANY ONE of the following: [ ]i) Hypotension [ ]ii) Symptomatic Tachycardia unresponsive to treatment (eg , analgesia, fluids, sedation as indicated) [ ]iii) Orthostatic vital sign changes unresponsive to treatment (eg, fluids) [ ]b) Vital sign abnormality that is severe indicated by ANY ONE of the following: [ ]i) Inadequate perfusion indicated by ANY ONE of the following: [ ]1) Lactic acidosis (greater than 2 mmol/L) [ ]2) New abnormal capillary refill (greater than 3 seconds) [ ]3) Other metabolic acidosis (arterial pH less than 7.35) not otherwise explained [ ]4) Reduced urine output [ ]5) Altered mental status [ ]6) Myocardial Ischemia [ ]v) Mean arterial pressure[A] less than 60 mm Hg [ ]vi) Mean arterial pressure[A] less than 70 mm Hg after 30 minutes of appropriate treatment (eg, fluid resuscitation) [ ]vii) IV inotropic or vasopressor medication required to maintain adequate blood pressure or perfusion [ ]viii) Sustained heart rate greater than 120 beats per minute in adult or child 6 years or older[B]] [ ]II. Hypertension requiring inpatient treatment as indicated by ANY ONE of the following(6)(7)(8): [ ]a) SBP greater than 220 mm Hg or DBP greater than 120 mm Hg despite treatment [ ]b) SBP greater than 140 mm Hg or DBP greater than 100 mm Hg with evidence of acute end organ damage as indicated by ANY ONE of the following: [ ]i) Encephalopathy [ ]ii) Acute renal failure as indicated by new onset of ANY ONE of the following(9)(10)(11)(12)(13): [ ]1) A 3-fold rise in serum creatinine from baseline [ ]2) Serum creatinine greater than 4 mg/dL ( 354 micromoles/L) with acute rise greater than 0.5 mg/dL (44.2 micromoles/L) [ ]3) Reduction of more than 75% in estimated glomerular filtration rate from baseline [ ]4) Estimated glomerular filtration rate less than 35 mL/min/1.73m2 (0.59 mL/sec/1.73m2) in child up to 18 years of age [ ]5) Cessation of urine output indicated by ALL of the following: [ ]A. Adequate volume status [ ]B. Inadequate urine output as indicated by ANY ONE of the following: [ ]a. Urine output less than 0.3 mL/kg/hr for 24 hours [ ]b. Anuria (urine output less than 0.1 mL/kg/hr) for 12 hours [ ]iii) Aortic dissection [ ]iv) Myocardial ischemia [ ]v) Left ventricular heart failure [ ]vi) Retinal hemorrhage [ ]vii) Other significant finding [ ]c) Hypertension in child requiring inpatient treatment as indicated by ALL of the following(14)(15)(16): [ ]i) Outpatient treatment not effective, not available, or not appropriate [ ]ii) SBP or DBP greater than 95th percentile for age [ ]iii) Evidence of acute end organ damage as indicated by ANY ONE of the following: [ ]1) Altered mental status [ ]2) Acute renal failure as indicated by new onset of ANY ONE of the following(9)(10)(11)(12)(13): [ ]A. A 3-fold rise in serum creatinine from baseline [ ]B. Serum creatinine greater than 4 mg/dL (354 micromoles/L) with acute rise greater than 0.5 mg/dL (44.2 micromoles/L) [ ]C. Reduction of more than 75% in estimated glomerular filtration rate from baseline [ ]D. Estimated glomerular filtration rate less than 35 mL/min/1.73m2 (0.59 mL/sec/1.73m2)in child up to 18 years of age [ ]E. Cessation of urine output indicated by ALL of the following: [ ]a. Adequate volume status [ ]b. Inadequate urine output as indicated by ANY ONE of the following: [ ]1) Urine output less than 0.3 mL/kg/hr for 24 hours [ ]2) Anuria (urine output less than 0.1 mL/kg/hr) for 12 hours [ ]3) Severe headache [ ]4) Visual disturbance [ ]5) Retinal hemorrhage [ ]6) Other significant finding [ ]III. Acute cardiac or peripheral ischemia as indicated by ANY ONE of the following: [ ]a) Acute coronary syndrome(17)(18) [ ]b) Acute peripheral ischemia (eg, pulseless, cool, mottled, or cyanotic extremity)(19) [ ]IV. Cardiac arrhythmias or findings of immediate concern indicated by ANY ONE of the following(20)(21): [ ]a) Heart rhythms that are inherently dangerous or unstable indicated by ANY ONE of the following(22)(23)(24): [ ]i) Resuscitated ventricular fibrillation or cardiac arrest [ ]ii) Ventricular escape rhythm [ ]iii) Sustained ventricular tachycardia (30 seconds or more of ventricular rhythm at greater than 100 beats per minute) [ ]iv) Nonsustained ventricular tachycardia and ANY ONE of the following: [ ]1) Suspected cardiac ischemia as cause or consequence of ventricular tachycardia [ ]2) In setting of acute myocarditis [ ]b) Unstable cardiac conduction defects indicated by ANY ONE of the following(24)(25)(26): [ ]i) Type II second-degree atrioventricular block [ ]ii) Third-degree atrioventricular block [ ]iii) New-onset left bundle branch block with suspected myocardial ischemia [ ]c) Any heart rhythm and ANY ONE of the following(22)(23)(27)(28)( 29): [ ] i) Continuous long-term ECG monitoring needed (eg, initiation of drug requiring monitoring for more than 24 hours) [ ] ii) Patient has automatic implanted cardioverter defibrillator that is repeatedly firing, malfunctioning, or in need of immediate adjustment of settings beyond the scope of ambulatory or observation care. [ ]d) Heart rhythms of concern due to ANY ONE of the following: [ ]i) Hypotension [ ]ii) Respiratory distress [ ]iii) Association with other significant symptoms (eg, bradycardia with syncope or ongoing dizziness, supraventricular tachycardia with chest pain) (27)(28) (30) [ ] V. Severe heart failure as indicated by ANY ONE of the following ( 31)(32): [ ]a) Respiratory distress [ ]b) Hypotension [ ]c) Anasarca (refractory to outpatient therapy) [ ]d) Cardiac arrhythmias of immediate concern [ ]e) Myocardial ischemia [ ]. Respiratory abnormalities, including ANY ONE of the following(33)(34) (35)(36): [ ]a) Respiratory rate greater than 30 breaths per minute unresponsive to treatment [A] [ ]b) New saturation of arterial oxygen less than 90% [ ]c) New partial pressure of carbon dioxide greater than 44 mm Hg ( 5.9 kPa) [ ]d) Supplemental oxygen or respiratory treatments needed that are new or not performable at other levels of care [ ]e) New-onset cyanosis [ ]f) Inability to protect airway [ ]g) Chronic lung disease with severe deterioration (not responsive to emergency and observation care treatment as appropriate) as indicated by ANY ONE of the following(34)(36 ): [ ]i) SaO2 5% below baseline in patient with chronic hypoxemia [ ]ii) New requirement for supplemental oxygen to keep SaO2 at baseline or acceptable level [ ]iii) Required supplemental oxygen performable only in acute inpatient setting [ ]iv) Severe airflow or ventilation abnormalities [ ]v) Previously mobile patient unable to walk between rooms [ ]vi Inability to eat or sleep due to dyspnea [ ]vii) Rapid rate of exacerbation onset [ ]viii) Altered mental status ]VII. Severe airflow or ventilation abnormalities (not responsive to emergency and observation care treatment as appropriate) as indicated by ANY ONE of the following(33)(34)(35)(37): [ ]a) PCO2 greater than 42 mm Hg (5.6 kPa) and pH less than 7.35 (new ) [ ]b) Documented PCO2 increased more than 5 mm Hg (0.7 kPa) from disease baseline [ ]c) Airflow measurements [B] less than 60% of previous best or predicted (eg, peak expiratory flow rate less than 300 L/minute) despite intensive emergent treatment [C] [ ]d) Required respiratory treatments that are performable only in acute inpatient setting [ ]VIII. Impending or actual respiratory arrest ( Also use Respiratory Failure GRG for severe respiratory disease and long-term mechanical ventilation patients) [ ]IX. Neurologic abnormalities, including ANY ONE of the following: [ ]a) New findings that suggest ANY ONE of the following: [ ]i) AC[employer] HEL[employer] infection(38) [ ]ii) Cerebral bleeding, ischemia, or vasospasm(39)(40) [ ]iii) Increased intracranial pressure, hydrocephalus, or cerebral edema(41)(42)(43) [ ]iv) Spinal cord injury(44) [ ]b) Uncontrolled seizures(45) [ ]c) New-onset coma (eg, Dike coma scale score less than 9) or unexplained abnormal mental status (eg, Dike coma scale score less than 14) [D](41)(46)(47) [ ]X. New-onset severe neurologic findings requiring inpatient care; examples include(42)(48)(49): [ ]a) Papilledema [ ]b) Cerebral edema [ ]c) Mass effect on CT scan [ ]XI. Suspected acute intra-abdominal process with peritoneal signs, abdominal mass, or similar findings (50)(51)(52) [ ]XII. Severe physiologic disorder remaining after emergency or observation level care (as appropriate) as indicated by ANY ONE of the following (53): [ ]a) Significant dehydration [ ]b) Diabetic ketoacidosis [ ]c) Hyperglycemic hyperosmolar state (eg, osmolality greater than 320 mOsm/kg (mmol/kg) [ ]d) Hypoglycemia [ ]e) Other (new) acid-base disorder with pH less than 7.35 or greater than 7.5(54) [ ]f) Thyroid storm (55) [ ]g) Myxedema coma (55) [ ]XIII. Abdominal abnormalities with ANY ONE of the following(56)(57): [ ]a) Absent bowel sounds with complete ileus [ ]b) Signs of intestinal obstruction or peritonitis [E] [ ]c) Nausea and vomiting that cannot be controlled with outpatient or observation care [ ]XIV. Acute renal failure as indicated by new onset of ANY ONE of the following(9)(10)(11)(12)(13): [ ]a) A 3-fold rise in serum creatinine from baseline [ ]b) Serum creatinine greater than 4 mg/dL (354 micromoles/L) with acute rise greater than 0.5 mg/dL (44.2 micromoles/L) [ ]c) Reduction of more than 75% in estimated glomerular filtration rate from baseline [ ]d) Estimated glomerular filtration rate less than 35 mL/min/ 1.73m2 (0.59 mL/sec/1.73m2) in child up to 18 years of age [ ]e) Cessation of urine output indicated by ALL of the following: [ ]i) Adequate volume status [ ]ii) Inadequate urine output as indicated by ANY ONE of the following: [ ]1) Urine output less than 0.3 mL/kg/hr for 24 hours [ ]2) Anuria (urine output less than 0.1 mL/kg/hr) for 12 hours [ ]XV. Significant uremic complications as indicated by ANY ONE of the following(58)(59)(60): [ ]a) Outpatient therapy is ineffective or not feasible for ANY ONE of the following: [ ]i) Severe heart failure [ ]ii) Severehypertension [ ]iii) Pleural effusion [ ]iv) Pericarditis or pericardial effusion [ ]b) Cardiac arrhythmias of immediate concern [ ]c) Intractable nausea or vomiting [ ]d) Recurrent seizures [ ]e) Encephalopathy [ ]f) Bleeding abnormalities (eg, platelet dysfunction) with active (eg, gastrointestinal) bleeding [ ]g) Dialysis indicated before long-term access or ambulatory arrangements can be made [ ]h) Significant metabolic or electrolyte abnormalities (eg, severe acidosis or hyperkalemia) [ ]XVI. High fever or other high-risk infection situation as indicated by ANY ONE of the following(61)(62)(63)(64): [ ]a) Outpatient and observation care antimicrobial treatment unavailable, not effective, or not appropriate [ ]b) Documented bacteremia [ ]c) Temperature greater than 40.5 degrees C (104.9 degrees F) ( oral) [ ]d) Temperature greater than 39.5 degrees C (103.1 degrees F) ( oral) or less than 36 degrees C (96.8 degrees F) (rectal) that does not respond to e treatment and observation care [ ] XVII. Temperature less than 95 degrees F (35 degrees C)(rectal)(65) [ ] XVIII. Severe nutritional abnormalities as indicated by ALL of the following (66)(67): [ ]a) Inability to tolerate or establish sufficient oral or other enteral nutrition in outpatient setting [ ]b) Parenteral nutrition regimen need that must be implemented on inpatient basis [X ] XIX. Severe electrolyte abnormalities indicated by ALL of the following(68 )(69)(70): [ X]a) Electrolytes and associated findings are not as expected for patient baseline or acceptable treatment effects. [X ]b) Severe abnormalities indicated by ANY ONE of the following: [ ]i) Sodium less than 130 mEq/L (mmol/L) (new) [ ]ii)Sodium less than 135 mEq/L (mmol/L) with ANY ONE of the following: [ ]1) Uncorrectable (to near normal or chronic baseline) after trial of outpatient and emergency treatment [ ]2) Altered mental status [ ]3) Seizures [ ]4) Severe medical etiology requiring inpatient management (eg, heart failure, hypovolemia) [ ]iii) Sodium greater than 155 mEq/L (mmol/L) [ ]iv) Sodium greater than 150 mEq/L (mmol/L) with ANY ONE of the following: [ ]1) Uncorrectable (to near normal or chronic baseline) with outpatient and emergency treatment [ ]2) Altered mental status [ ]3) Seizures [ ]4) Severe medical etiology (eg, hypovolemia, diabetes insipidus) [ ]v) Potassium less than 2.5 mEq/L (mmol/L) despite outpatient and emergency treatment [ ]vi) Potassium less than 3 mEq/L (mmol/L) with ANY ONE of the following: [ ]1) Weakness [ ]2) Cardiac abnormality (eg, arrhythmia, conduction disturbance) [ ]3) Cardiac ischemia [ ]4) Ileus [ ]5) Ongoing medical cause requiring inpatient management (eg, acute renal wasting or SIADH) [ ]6) Other severe symptoms [X ]vii) Potassium greater than 6.5 mEq/L (mmol/L) [ ]viii) Potassium greater than 5 mEq/L (mmol/L) with ANY ONE of the following: [ ]1) Uncorrectable (to near normal or chronic baseline) with outpatient and emergency treatment [ ]2) Severe ECG findings [F] [ ]3) Acute worsening of renal failure (creatinine greater than 2.5 mg/dL (221 micromoles/L) or significant elevation for age and size) [ ]4) Severe weakness [ ]5) Severe medical etiology (eg, hemolysis, infection, drug overdose) [ ]ix) Calcium less than 7 mg/dL (1.75 mmol/L) despite outpatient and emergency treatment (72) [ ]x) Calcium less than 8 mg/dL (2 mmol/L) with significant symptoms or findings; examples include(72): [ ]1) Altered mental status [ ]2) Muscle spasms [ ]3) Seizures [ ]4) Breathing difficulty [ ]5) Cardiac abnormality (eg, arrhythmia or conduction disturbance) [ ]xi) Calcium greater than 14 mg/dL (3.5 mmol/L)(72) [ ]xii) Calcium greater than 12 mg/dL (3 mmol/L) with ANY ONE of the following(72): [ ]1) Uncorrectable (to near normal or chronic baseline) with outpatient and emergency treatment [ ]2) Significant dehydration or hypovolemia as indicated by ALL of the following(70)(73)(74): [ ]A. Not resolved with initial treatments [ ]B. Clinically significant dehydration as indicated by ANY ONE of the following: [ ]a. Vomiting refractory to outpatient treatment (ie, precluding oral rehydration) [ ]b. Inability to drink [ ]c. Hypernatremia or other electrolyte abnormality unable to be corrected with outpatient and emergency treatment [ ]d. Failure to remain hydrated with outpatient therapy [ ]e. Reduced urine output [ ]f. Hypotension [ ]g. Serious cause for dehydration requiring acute hospitalization (eg, bowel obstruction, increased intracranial pressure, infectious cause) [ ]h. Child with ANY ONE of the following(75): [ ]1) Severe abdominal tenderness [ ]2) Adequate care not available at home [ ]3) Severe dehydration ( greater than 9% loss of body weight) [ ]4) Significant symptoms or findings; examples include: [ ]A. Altered mental status [ ]B. Cardiac abnormality (eg, arrhythmia, conduction disturbance) [ ]C. Malignant etiology requiring inpatient treatment [ ]xiii) Phosphorus less than 1 mg/dL (0.32 mmol/L) [ ]xiv) Phosphorus less than 1.5 mg/dL (0.48 mmol/L) with ANY ONE of the following: [ ]1) Patient unresponsive to outpatient and emergency treatment [ ]2) Significant symptoms or findings; examples include: [ ]A. Weakness [ ]B. Altered mental status [ ]C. Breathing difficulty [ ]D. Seizures [ ]E. Rhabdomyolysis [ ]xv) Phosphorus greater than 10 mg/dL (3.2 mmol/L) [ ]xvi) Phosphorus greater than 4.5 mg/dL (1.45 mmol/L) (new) with ANY ONE of the following: [ ]1) Severe medical etiology (eg, crush injury, acute renal failure) [ ]2) Associated hypocalcemia with significant findings; examples include: [ ]A. Neurologic symptoms [ ]B. Altered mental status [ ]C. Muscle spasms [ ]D. Seizures [ ]E. Breathing difficulty [ ]F. Cardiac abnormality (eg, arrhythmia, conduction disturbance) [ ]xvii) Magnesium less than 1 mg/dL (0.41 mmol/L) [ ]xviii) Magnesium less than 1.5 mg/dL (0.62 mmol/L) with ANY ONE of the following: [ ]1) Patient unresponsive to outpatient and emergency treatment [ ]2) Associated hypocalcemia with significant findings; examples include: [ ]A. Altered mental status [ ]B. Muscle spasms [ ]C. Seizures [ ]D. Breathing difficulty [ ]E. Cardiac abnormality (eg, arrhythmia , conduction disturbance) [ ]3) Associated hypokalemia (potassium less than 3 mEq/L (mmol/L)) with risk of arrhythmia [ ]xix) Magnesium greater than 4 mEq/L (2 mmol/L) [ ]xx) Magnesium greater than 2.5 mEq/L (1.25 mmol/L) with significant symptoms or findings; examples include: [ ]1) Weakness [ ]2) Altered mental status [ ]3) Cardiac abnormality (eg, arrhythmia, conduction disturbance) [ ]4) Breathing difficulty [ ]5) Severe medical etiology (eg, renal failure, hypovolemia) [ ]xxi) Uric acid greater than 20 mg/dL (1190 micromoles/L)(76) [ ]xxii) Uric acid greater than 8 mg/dL (476 micromoles/L) with significant symptoms or findings of tumor lysis syndrome; examples include(76): [ ]1) Creatinine greater than 1.5 times upper limit of normal [ ]2) Cardiac abnormality (eg, arrhythmia, conduction disturbance) [ ]3) Seizure [ ]XX. Acute blood loss causing significant abnormality as indicated by ANY ONE of the following(77)(78): [ ]a) Hemoglobin less than 10 g/dL (100 g/L) (not baseline) [ ]b) Hematocrit less than 30% (0.30) (not baseline) [ ]c) Repeat hematocrit decreased more than 2% (0.02) [ ]d) Uncontrolled bleeding [ ]XXI. Severe anemia indicated by ANY ONE of the following(78)(79): [ ]a) Altered mental status [ ]b) Chest pain [ ]c) Exertional dyspnea [ ]d) Syncope [ ]e) Other findings suggesting inadequate perfusion [ ]f) Treatment with transfusion or volume replacement is ineffective at resolving ANY ONE of the following [G]: [ ]i) Tachycardia for age [ ]ii) Orthostatic vital sign changes as indicated by ANY ONE of the following(80): [ ]1) Fall in SBP of 20 mm Hg or more 1 to 3 minutes after patient sits or stands from recumbent position [ ]2) Fall in DBP of 10 mm Hg or more 1 to 3 minutes after patient sits or stands from recumbent position [ ]XXII. High-risk low platelet count as indicated by ANY ONE of the following( 81)(82): [ ]a) Severe or life-threatening bleeding (eg, intracranial, major gastrointestinal, or extensive mucosal bleeding), with any reduced platelet count [ ]b) Platelet count less than 20,000/mm3 (20 x109/L) with any active bleeding [ ]c) Platelet count less than 10,000/mm3 (10 x109/L) with minor purpura or petechiae [ ]d) Platelet count less than 5000/mm3 (5 x109/L) [ ]e) Low platelet count with hemolytic anemia [ ]XXIII. Disseminated intravascular coagulation(77)(83) [ ]XXIV. Severe adverse drug or systemic toxin reaction requiring inpatient treatment; examples include(84)(85): [ ]a) Serotonin syndrome(86) [ ]b) Neuroleptic malignant syndrome(86) [ ]c) Cholinergic syndrome with severe symptoms (eg, bronchorrhea, weakness, mental status changes, seizures) [ ]d) Sympathetic syndrome with severe symptoms (eg, seizures, mental status changes, cardiac dysrhythmias) [ ]e) Anticholinergic syndrome [ ]XXV. Severe pain requiring acute inpatient management as indicated by ALL of the following (87)(88)(89): [ ]a) Continuous or frequent (eg, every 2 to 4 hours) parenteral analgesics required [H] [ ]b) Rapid improvement expected from treatment or acute intervention (eg, surgery, anesthesia procedure) [ ]XXVI.Severe behavioral health issues judged unmanageable at a lower level of care (eg, residential) in a patient who is ANY ONE of the following(91) [ ]a) Acutely suicidal [ ]b) A danger to self (eg, self-mutilating or suicidal behavior) [ ]c) A danger to others (eg, assaultive or homicidal behavior) [ ]d) Incapacitated because of grave disability (eg, inability to provide for self at lower level of care) (92) [ ]XXVII. Inpatient monitoring needed; examples include(1)(3)(87)(93)(94)(95)(96 ): [ ]a) Vital signs, neurologic signs, or vascular checks more frequently than every 4 hours [ ]b) Cardiac or respiratory monitoring beyond the scope (eg, over 24 hours) of observation care [ ]c) Pulmonary artery catheter monitoring [ ]d) Suspected compartment syndrome(97) (98) [ ]e) Cerebral bleeding, hydrocephalus, or vasospasm monitoring [ ]f) Increased intracranial pressure or cerebral edema monitoring [ ]g) monitoring [ ]XXVIII. Treatment requiring inpatient care; examples include: [ ]a) IV fluid to replace significant ongoing losses (greater than 3 L/m2 per day)(53) [ ]b) High concentration oxygen (greater than 40%)(33)(99)(100) [ ]c) Frequent respiratory therapy (more frequently than every 4 hours) to maintain airflow rates greater than 60% of baseline(33)(99)(100) [ ]d) Epidural analgesia(87) [ ]e) IV anticoagulation, vasoactive, or antiarrhythmic medication(19 )(23) [ ]f) Acute thrombolytics (generally require 24 hours of observation )(101)(102) [ ]XXIX. Emergency procedures needed; examples include: [ ]a) Emergency inpatient surgery [ ]b) Temporary pacemaker placement(103) [ ]c) Chest tube placement with active evacuation (eg, suction, drainage)(104) [ ]d) Emergent cardioversion(105) [ ]e) Emergent cardiac or vascular procedures (eg, cardiac catheterization, angioplasty) (17)(18) [ ]f) Emergent dialysis access placement and institution(10)(106) [ ]g) Emergent pericardiocentesis(107) [ ]h) Emergent plasmapheresis or leukapheresis(83) [ ]i) Emergent tracheostomy The original [employer] content created by [employer] has been revised. The portions of the content which have been revised are identified through the use of italic text or in bold, and [employer] has neither reviewed nor approved the modified material. All other unmodified content is copyright [employer]. Please see references footnoted in the original [employer] edition 2016 Admission Criteria Met: Yes
--- NOTE | 2017-06-08 09:33 | Consultation ---
History of Present Illness Consult date: 06/08/17 Requesting physician: MILAGROS HERNANDEZ Consult reason: chest pain History of present illness: he patient is a 32 year old female with a history of CAD s/p PCI, HTN, ESRD on HD (/ schedule), lupus and noncompliance. She presented with complaints of SOB, chest pain, and BLE edema since Sunday. She states that she missed dialysis on both Sunday and of this week. She describes her chest pain has a nonexertional, nonradiating, left-sided, intermittent, stabbing pain. She reports associated intermittent shortness of breath. She denies any palpitations, n/v, diaphoresis, dizziness, or syncope. She states, " I am fluid overloaded. That is my main problem." On admission, her serum potassium was noted to be 8.0 and she was given a hyperkalemia cocktail. Admission BP was noted to be 188/124. She reports compliance with her medication regimen. In 06/2014, she underwent cardiac cath and PCI of 90% mid LAD lesion with a STEVEN at [facility]. Repeat cath in 06/2015 showed patent LAD stent and otherwise normal coronaries. Echo done 08/2016 showed EF 55-60%, impaired relaxation, RVSP 38mmHg. Past History Past Medical History: CAD, dialysis, ESRD, hypertension, other (lupus) Medications and Allergies Allergies Allergy/AdvReac Type Severity Reaction Status Date / Time hydrocodone bitartrate Allergy Itching Verified 06/08/17 00:16 [From Vicodin] morphine Allergy Itching Verified 06/08/17 00:16 tramadol Allergy Hives Verified 06/08/17 00:16 metoclopramide HCl AdvReac Unknown Verified 06/08/17 00:16 [From Reglan] Home Medications Medication Instructions Recorded Confirmed Last Taken Type Aspirin [Aspirin TAB] 325 mg PO QDAY #30 tablet 06/24/15 06/08/17 1 Day Ago Rx Clopidogrel [Plavix] 75 mg PO DAILY #30 tablet 06/24/15 06/08/17 1 Day Ago Rx Sevelamer HCl [Renagel] 800 mg PO TIDWM #30 tablet 06/24/15 06/08/17 1 Day Ago Rx Carvedilol [Coreg] 25 mg PO BID #60 tablet 07/29/15 06/08/17 1 Day Ago Rx Hydroxychloroquine [Plaquenil] 200 mg PO QDAY tablet 07/29/15 06/08/17 1 Day Ago Rx cloNIDine [Catapres] 0.3 mg PO TID 30 Days 07/29/15 06/08/17 1 Day Ago Rx predniSONE [Deltasone] 10 mg PO QAM 09/23/15 06/08/17 1 Day Ago History Famotidine [Pepcid] 20 mg PO BID #60 tablet 09/26/16 06/08/17 Unknown Rx AtorvaSTATin [Lipitor] 40 mg PO QHS #30 tablet 11/18/16 06/08/17 Unknown Rx oxyCODONE /ACETAMINOPHEN [Percocet 1 tab PO QHS PRN #7 tablet 11/18/16 06/08/17 Unknown Rx 5/325] Active Meds: Active Medications Acetaminophen (Tylenol) 650 mg PO Q4H PRN PRN Reason: Pain MILD(1-3)/Fever >100.5/MEJIA Bisacodyl (Dulcolax) 10 mg CA QDAY PRN PRN Reason: Constipation unrelieved by MOM Enoxaparin Sodium (Lovenox) 30 mg SUB-Q QDAY ADIA Hydralazine HCl (Apresoline) 10 mg IV Q6HR PRN PRN Reason: Hypertension Hydromorphone HCl (Dilaudid) 1 mg IV Q4H PRN PRN Reason: Pain , Severe (7-10) Last Admin: 06/08/17 06:24 Dose: 1 mg Magnesium Hydroxide (Milk Of Magnesia) 30 ml PO Q4H PRN PRN Reason: Constipation Ondansetron HCl (Zofran) 4 mg IV Q8H PRN PRN Reason: N/V unrelieved by Reglan Last Admin: 06/08/17 03:31 Dose: 4 mg Oxycodone/Acetaminophen (Percocet 5/325) 1 tab PO Q6H PRN PRN Reason: Pain, Moderate (4-6) Last Admin: 06/08/17 03:32 Dose: 1 tab Review of Systems Cardiovascular: chest pain, shortness of breath, high blood pressure, leg edema , no dyspnea on exertion Respiratory: shortness of breath, no cough, no dyspnea on exertion, no congestion, no wheezing, no pain on inspiration Gastrointestinal: no abdominal pain, no nausea, no vomiting, no diarrhea, no constipation, no change in bowel habits Physical Examination Vital Signs Temp Pulse Resp BP Pulse Ox 98.7 F 85 18 188/124 99 06/07/17 21:55 06/07/17 21:55 06/07/17 21:55 06/07/17 21:55 06/07/17 21:55 General appearance: no acute distress HEENT: Positive: PERRL, Normocephaly, Mucus Membranes Moist Neck: Positive: neck supple, trachea midline Cardiac: Positive: Reg Rate and Rhythm, S1/S2, Systolic Murmur Lungs: Positive: clear to auscultation Neuro: Positive: Grossly Intact, Cranial Nerve 2-12 Intact Abdomen: Positive: Unremarkable, Soft, Active Bowel Sounds. Negative: Tender Skin: Positive: Clear. Negative: Rash, Wound Musculoskeletal: No Pain, Normal Range of Motion Extremities: Present: +1 Edema (nonpitting BLE ) Results 06/07/17 22:34 06/08/17 01:34 Cardiac Enzymes 06/08/17 Range/Units 03:28 CK-MB (CK-2) 1.5 (0.0-4.0) ng/mL - Imaging and Cardiology Echo: report reviewed (08/2016 showed EF 55-60%, impaired relaxation, RVSP 38mmHg) Cardiac cath: report reviewed (06/2015 showed patent LAD stent and otherwise normal coronaries) EKG: image reviewed EKG interpretations - Telemetry EKG Rhythm: Sinus Rhythm - EKG Sinus rhythms and dysrhythmias: sinus rhythm Myocardial infarction: septal VT (old age or ind Assessment and Plan Assessment: Atypical chest pain - ECG with NAF; in setting of accelerated HTN. Elevated troponin - minimally elevated, flat, and unchanged from prior admissions; nonspecific in setting of ESRD Hyperkalemia ESRD, on HD CAD -s/p PCI of mid LAD 06/2014; C 06/2015: patent LAD stent, otherwise normal coronaries; Echo 08/2016: EF 55-60%, impaired relaxation, RVSP 38 mmHg Accelerated Hypertension Hyperlipidemia / hypertriglyceridemia Lupus Plan: ACS ruled out. Resume home ASA, statin, coreg, and clonidine. Discontinue plavix as there is no current cardiac indication for continuation (PCI was in 2013) and pt with no reported history of TIA or CVA. Initiate fenofibrate. Await nephrology consultation. Volume optimization per HD. Consider lexiscan MPI stress test as OP pending Sangeeta remain flat. Assessment and plan reviewed with pt at bedside. The patient has been seen in conjunction with Dr. Farris who agrees with the assessment and plan of care.
[2017-06-08] MEDS ORDERED: NACL 0.9% 100 ML IV PRN (09:35)
--- NOTE | 2017-06-08 09:36 | Consultation ---
History of Present Illness - Reason for Consult Consult date: 06/08/17 end stage renal disease, hyperkalemia - History of Present Illness Patient is a 32 year old AAF with significant for Obesity, CAD, Hypertension, CHF, Lupus and ESRD on hemodialysis (TTS) came to the emergency room with complaints of shortness of breath. Patient was last dialyzed 6 days ago and she missed 2 sessions of hemodialysis since she was out of town. Patient also reports left substernal pain which was sharp, intermittent in nature lasting for less than 5 minutes, intensity 5/10 and without any radiation. Patient deneis any nausea, vomiting, dizziness, leg swelling, syncope, confusion, cough or hemodptysis. Patient gets hemdialysis at [facility]. Her potassium was 8 on admission. Past History Past Medical History: CAD, dialysis, ESRD, hypertension, other (lupus) Medications and Allergies Allergies Allergy/AdvReac Type Severity Reaction Status Date / Time hydrocodone bitartrate Allergy Itching Verified 06/08/17 00:16 [From Vicodin] morphine Allergy Itching Verified 06/08/17 00:16 tramadol Allergy Hives Verified 06/08/17 00:16 metoclopramide HCl AdvReac Unknown Verified 06/08/17 00:16 [From Reglan] Home Medications Medication Instructions Recorded Confirmed Last Taken Type Aspirin [Aspirin TAB] 325 mg PO QDAY #30 tablet 06/24/15 06/08/17 1 Day Ago Rx Clopidogrel [Plavix] 75 mg PO DAILY #30 tablet 06/24/15 06/08/17 1 Day Ago Rx Sevelamer HCl [Renagel] 800 mg PO TIDWM #30 tablet 06/24/15 06/08/17 1 Day Ago Rx Carvedilol [Coreg] 25 mg PO BID #60 tablet 07/29/15 06/08/17 1 Day Ago Rx Hydroxychloroquine [Plaquenil] 200 mg PO QDAY tablet 07/29/15 06/08/17 1 Day Ago Rx cloNIDine [Catapres] 0.3 mg PO TID 30 Days 07/29/15 06/08/17 1 Day Ago Rx predniSONE [Deltasone] 10 mg PO QAM 09/23/15 06/08/17 1 Day Ago History Famotidine [Pepcid] 20 mg PO BID #60 tablet 09/26/16 06/08/17 Unknown Rx AtorvaSTATin [Lipitor] 40 mg PO QHS #30 tablet 11/18/16 06/08/17 Unknown Rx oxyCODONE /ACETAMINOPHEN [Percocet 1 tab PO QHS PRN #7 tablet 11/18/16 06/08/17 Unknown Rx 5/325] Active Meds: Active Medications Acetaminophen (Tylenol) 650 mg PO Q4H PRN PRN Reason: Pain MILD(1-3)/Fever >100.5/MEJIA Bisacodyl (Dulcolax) 10 mg OR QDAY PRN PRN Reason: Constipation unrelieved by MOM Enoxaparin Sodium (Lovenox) 30 mg SUB-Q QDAY ADIA Hydralazine HCl (Apresoline) 10 mg IV Q6HR PRN PRN Reason: Hypertension Hydromorphone HCl (Dilaudid) 1 mg IV Q4H PRN PRN Reason: Pain , Severe (7-10) Last Admin: 06/08/17 06:24 Dose: 1 mg Magnesium Hydroxide (Milk Of Magnesia) 30 ml PO Q4H PRN PRN Reason: Constipation Ondansetron HCl (Zofran) 4 mg IV Q8H PRN PRN Reason: N/V unrelieved by Reglan Last Admin: 06/08/17 03:31 Dose: 4 mg Oxycodone/Acetaminophen (Percocet 5/325) 1 tab PO Q6H PRN PRN Reason: Pain, Moderate (4-6) Last Admin: 06/08/17 03:32 Dose: 1 tab Review of Systems Constitutional: no weight loss, no weight gain, no fever, no chills, no anorexia , no fatigue, no weakness, no poor appetite Ears, nose, mouth and throat: no sinus pain, no epistaxis Breasts: deferred Cardiovascular: chest pain, shortness of breath, dyspnea on exertion, high blood pressure, no orthopnea, no palpitations, no edema, no syncope, no lightheadedness, no leg edema Respiratory: shortness of breath, dyspnea on exertion, no cough, no hemoptysis Gastrointestinal: no abdominal pain, no nausea, no vomiting, no diarrhea, no melena, no jaundice Genitourinary Female: no dysuria, no hematuria Rectal: no bleeding Musculoskeletal: no frequent falls Integumentary: rash, redness Neurological: head injury, no syncope Psychiatric: no disorientation Endocrine: weight change Exam - Vital Signs Vital signs: Vital Signs Temp Pulse Resp BP Pulse Ox 98.7 F 85 18 188/124 99 06/07/17 21:55 06/07/17 21:55 06/07/17 21:55 06/07/17 21:55 06/07/17 21:55 - General Appearance General appearance: well-developed, well-nourished, appears stated age, obese, other (no distress) EENT: ATNC, PERRL, hearing intact, vision intact Neck: Present: neck supple, trachea midline Respiratory: Clear to Ascultation Heart: regular, S1S2, no murmurs Gastrointestinal: Present: normoactive bowel sounds, obese. Absent: tenderness Integumentary: rash (healed facial rash) Neurologic: no focal deficit, no asterixis, alert and oriented x3, CN 3-12 intact Musculoskeletal: Present: other (no edema, right arm AVF) Psychiatric: mood/affect appropriate, cooperative Results - Lab Results 06/09/17 05:21 06/09/17 05:21 Most recent lab results Calcium 9.2 mg/dL (8.4-10.2) 06/07/17 22:34 Assessment and Plan - Patient Problems (1) Hyperkalemia Current Visit: Yes Status: Acute Plan to address problem: Secondary to missed hemodialysis. Hemodialysis orders placed for today. (2) ESRD (end stage renal disease) on dialysis Current Visit: Yes Status: Chronic Plan to address problem: Hemodialysis today. (3) Chest pain Current Visit: Yes Status: Acute Qualifiers: Chest pain type: other chest pain Ischemic chest pain type: I Qualified Code(s): R07.89 - Other chest pain; R07.8 - Other chest pain (4) Hypertension Current Visit: Yes Status: Chronic Qualifiers: Hypertension type: unspecified Qualified Code(s): I10 - Essential (primary ) hypertension Plan to address problem: Will try to remove 4 Lts as tolerated with hemodialysis (5) Medical non-compliance Current Visit: No Status: Chronic
[2017-06-08] MEDS ORDERED: LOVENOX SUB-Q SCH (10:00)
[2017-06-08 10:25] LABS: Creatine Kinase MB 1.7 ng/mL (0.0-4.0)
[2017-06-08] MEDS ORDERED: BENADRYL IV STA (11:53)
[2017-06-08] MEDS ORDERED: BENADRYL ONE (11:58)
[2017-06-08] MEDS ORDERED: NACL 0.9 (PRIMING MACHINE ONLY DIALYSIS) MC ONE (12:21)
[2017-06-08 13:00] LABS: Creatine Kinase MB 2.3 ng/mL (0.0-4.0)
--- NOTE | 2017-06-08 15:40 | Progress Note ---
Assessment and Plan Assessment and plan: Patient is a 32 year old woman with a history of CAD s/p PCI, HTN, ESRD on HD ( //Sun schedule), lupus and noncompliance who has missed her last 2 dialysis sessions because she just didn't want ago. She says she went out of town and did not arrange hemodialysis out of town either. Although, she jeopardizes her life with consisitently missing hemodialysis/noncompliance; patient denies suicide ideation. She was found to be severely hyperkalemic. Counseling done -Severe hyperkalemia due to noncompliance: Treat with hemodialysis -Worsening end-stage renal disease due to noncompliance: Nephrology is following -Metabolic acidosis related to above: Repeat BMP a.m. -DVT prophylaxis: Change Lovenox to heparin -Elevated troponin been evaluated by cardiology, unlikely acute coronary syndrome but related to renal disease -Lupus: Pain control Full code History Interval history: Patient seen and examined. Follow up on current diagnosis of shortness breath and weakness. Overnight uneventful. No cp, n/v or severe headaches. Imaging, old records, testing, labs, nursing notes reviewed. Hospitalist Physical - Physical exam Narrative exam: GEN: Chronically debilitated, NAD, AWAKE, ALERT, ORIENTATED x 3 HEENT: NCAT, PERRL, EOMI, OP CLEAR NECK: SUPPLE, NO THYROMEGALY, NO JVD, NO LAD CVS: RRR, NORMAL S1S2 LUNGS/CHEST: Diminished breath sounds bilaterally NORMAL CHEST EXPANSION B, reduced AIR ENTRY B ABD: SOFT, NTND, GBS, NO REBOUND OR GUARDING EXT/SKIN: Bilateral leg edema MSK: FROM X 4 EXTREMITIES NEURO: CN 2-12 GROSSLY INTACT, NO FOCAL DEFICITS PSY: CALM - Constitutional Vitals: Temp Pulse Resp BP Pulse Ox 98.4 F 89 20 120/69 98 06/08/17 14:55 06/08/17 14:55 06/08/17 14:55 06/08/17 14:55 06/08/17 10:33 General appearance: Present: no acute distress Results - Labs CBC & Chem 7: 06/07/17 22:34 06/08/17 01:34 Labs: Laboratory Last Values WBC 8.3 K/mm3 (4.5-11.0) 06/07/17 22:34 RBC 3.53 M/mm3 (3.65-5.03) L 06/07/17 22:34 Hgb 11.0 gm/dl (10.1-14.3) 06/07/17 22:34 Hct 34.2 % (30.3-42.9) 06/07/17 22:34 MCV 97 fl (79-97) 06/07/17 22:34 MCH 31 pg (28-32) 06/07/17 22:34 MCHC 32 % (30-34) 06/07/17 22:34 RDW 16.6 % (13.2-15.2) H 06/07/17 22:34 Plt Count 300 K/mm3 (140-440) 06/07/17 22:34 Lymph % (Auto) 32.3 % (13.4-35.0) 06/07/17 22:34 [place] % (Auto) 11.2 % (0.0-7.3) H 06/07/17 22:34 Eos % (Auto) 0.9 % (0.0-4.3) 06/07/17 22:34 Baso % (Auto) 0.2 % (0.0-1.8) 06/07/17 22:34 Lymph # 2.7 K/mm3 (1.2-5.4) 06/07/17 22:34 [place] # 0.9 K/mm3 (0.0-0.8) H 06/07/17 22:34 Eos # 0.1 K/mm3 (0.0-0.4) 06/07/17 22:34 Baso # 0.0 K/mm3 (0.0-0.1) 06/07/17 22:34 Seg Neutrophils % 55.4 % (40.0-70.0) 06/07/17 22:34 Seg Neutrophils # 4.6 K/mm3 (1.8-7.7) 06/07/17 22:34 Sodium 137 mmol/L (137-145) 06/07/17 22:34 Potassium 7.8 mmol/L (3.6-5.0) H* 06/08/17 01:34 Chloride 95.4 mmol/L (98-107) L 06/07/17 22:34 Carbon Dioxide 21 mmol/L (22-30) L 06/07/17 22:34 Anion Gap 28 mmol/L 06/07/17 22:34 BUN 90 mg/dL (7-17) H 06/07/17 22:34 Creatinine 13.4 mg/dL (0.7-1.2) H 06/07/17 22:34 Estimated GFR 4 ml/min 06/07/17 22:34 BUN/Creatinine Ratio 6.71 % 06/07/17 22:34 Glucose 74 mg/dL (65-100) 06/07/17 22:34 Calcium 9.2 mg/dL (8.4-10.2) 06/07/17 22:34 Total Bilirubin 0.30 mg/dL (0.1-1.2) 06/07/17 22:34 AST 13 units/L (5-40) 06/07/17 22:34 ALT 24 units/L (7-56) 06/07/17 22:34 Alkaline Phosphatase 101 units/L (35-129) 06/07/17 22:34 Total Creatine Kinase 86 units/L (30-135) 06/08/17 10:40 CK-MB (CK-2) 2.3 ng/mL (0.0-4.0) 06/08/17 10:40 CK-MB (CK-2) Rel Index 2.6 (0-4) 06/08/17 10:40 Troponin T 0.065 ng/mL (0.00-0.029) H D 06/08/17 10:40 Total Protein 7.0 g/dL (6.3-8.2) 06/07/17 22:34 Albumin 3.8 g/dL (3.9-5) L 06/07/17 22:34 Albumin/Globulin Ratio 1.2 % 06/07/17 22:34 Triglycerides 316 mg/dL (2-149) H 06/07/17 22:34 Cholesterol 185 mg/dL (50-199) 06/07/17 22:34 LDL Cholesterol Direct 83 mg/dL (50-130) 06/07/17 22:34 HDL Cholesterol 39 mg/dL (40-59) L 06/07/17 22:34 Cholesterol/HDL Ratio 4.74 % 06/07/17 22:34 Lipase 101 units/L (13-60) H 06/07/17 22:34 HCG, Qual Negative (Negative) 06/07/17 22:34
[2017-06-08] MEDS: COREG PO SCH ×2 (16:50→23:43)
[2017-06-08] MEDS: ASPIRIN PO SCH (16:50)
[2017-06-08] MEDS: CATAPRES PO SCH ×2 (16:50→20:21)
[2017-06-08] MEDS: TRICOR PO SCH (16:56)
[2017-06-09] MEDS: DILAUDID IV PRN ×5 (00:33→20:59)
[2017-06-09 05:53] LABS: Basophils % (Auto) 0.8 % (0.0-1.8); Eosinophils % (Auto) 1.7 % (0.0-4.3); Hematocrit 33.5 % (30.3-42.9); Mean Corpuscular HGB Conc 33 % (30-34); Mean Corpuscular Hemoglobin 31 pg (28-32); Mean Corpuscular Volume 96 fl (79-97); Platelet Count 252 K/mm3 (140-440); Red Blood Count 3.49 M/mm3 (3.65-5.03); Red Cell Distribution Width 16.2 % (13.2-15.2); White Blood Count 6.4 K/mm3 (4.5-11.0)
[2017-06-09 07:11] LABS: BUN/Creatinine Ratio 4.21; Calcium 9.3 mg/dL (8.4-10.2); Chloride 92.6 mmol/L (98-107)
[2017-06-09] MEDS: CATAPRES PO SCH ×3 (08:59→20:57)
[2017-06-09] MEDS ORDERED: ZOFRAN IV PRN (09:00)
[2017-06-09] MEDS ORDERED: NACL 0.9% 100 ML IV PRN (09:28)
--- NOTE | 2017-06-09 09:30 | Progress Note ---
Assessment and Plan - Patient Problems (1) Hyperkalemia Current Visit: Yes Status: Acute Plan to address problem: Secondary to missed hemodialysis. Hemodialysis today with 1 K bath for the first hour, follwoed by 2 K bath. Low potassium diet. (2) ESRD (end stage renal disease) on dialysis Current Visit: Yes Status: Chronic Plan to address problem: Hemodialysis today. (3) Chest pain Current Visit: Yes Status: Acute Qualifiers: Chest pain type: other chest pain Ischemic chest pain type: I Qualified Code(s): R07.89 - Other chest pain; R07.8 - Other chest pain Plan to address problem: Followed by Cards. (4) Hypertension Current Visit: Yes Status: Chronic Qualifiers: Hypertension type: unspecified Qualified Code(s): I10 - Essential (primary ) hypertension Plan to address problem: BP is better. (5) Medical non-compliance Current Visit: No Status: Chronic Plan to address problem: Compliance encouraged. Subjective Date of service: 06/09/17 Interval history: Patient is feeling better today. Objective - Vital Signs Vital signs: Vital Signs - 12hr 06/08/17 06/08/17 06/09/17 23:25 23:43 00:33 Temperature 98.9 F Pulse Rate 20 L 80 Respiratory 20 18 Rate Blood Pressure 120/90 120/90 O2 Sat by Pulse 99 Oximetry 06/09/17 06/09/17 06/09/17 03:25 04:52 07:15 Temperature 98.6 F 98.0 F Pulse Rate 81 82 Respiratory 20 18 20 Rate Blood Pressure 125/69 140/78 O2 Sat by Pulse 100 100 Oximetry - General Appearance General appearance: well-developed, well-nourished, appears stated age, obese, other (no distress) EENT: ATNC, PERRL, hearing intact, vision intact Neck: supple Respiratory: Present: Clear to Ascultation Cardiology: regular, S1S2, no murmurs Gastrointestinal: normoactive bowel sounds, no tenderness, obese Integumentary: rash (healed rash) Neurologic: no focal deficit, no asterixis, alert and oriented x3, CN 3-12 intact Musculoskeletal: other (righta rm AVF, no rash) Psychiatric: mood/affect appropriate, cooperative - Lab 06/09/17 05:21 06/09/17 05:21 Most recent lab results Calcium 9.3 mg/dL (8.4-10.2) 06/09/17 05:21
--- NOTE | 2017-06-09 10:28 | Progress Note ---
Assessment and Plan Chest pain and possible GI possible gastroparesis nstemi type 2 Hyperkalemia ESRD, on HD CAD -s/p PCI of mid LAD 06/2014; C 06/2015: patent LAD stent, otherwise normal coronaries; Echo 08/2016: EF 55-60%, impaired relaxation, RVSP 38 mmHg Accelerated Hypertension Hyperlipidemia / hypertriglyceridemia Lupus Noncompliance rec : Recommend continue BP control and possible GI consult and will repeat echocardiogram for LV function Subjective Date of service: 06/09/17 Principal diagnosis: chest pain Interval history: Patient states nausea and vomiting this a.m. has some shortness of breath Objective Vital Signs Temp Pulse Resp BP BP Pulse Ox 06/09/17 07:15 98.0 F 82 20 140/78 100 06/09/17 04:52 18 06/09/17 03:25 98.6 F 81 20 125/69 100 06/09/17 00:33 18 06/08/17 23:43 80 120/90 06/08/17 23:25 98.9 F 20 L 20 120/90 99 06/08/17 20:22 18 06/08/17 20:21 83 181/108 06/08/17 19:50 100 06/08/17 19:30 98.2 F 82 20 174/102 100 06/08/17 16:00 97.5 F L 90 18 137/85 100 06/08/17 14:55 98.4 F 89 20 120/69 06/08/17 14:45 89 120/69 06/08/17 14:30 92 H 100/55 06/08/17 14:15 92 H 107/53 06/08/17 14:00 93 H 100/53 06/08/17 13:45 94 H 104/51 06/08/17 13:30 96 H 96/52 06/08/17 13:15 95 H 101/56 06/08/17 13:00 96 H 105/59 06/08/17 12:45 93 H 108/61 06/08/17 12:30 90 150/85 06/08/17 12:15 87 133/75 06/08/17 12:00 84 151/86 06/08/17 11:45 80 159/83 06/08/17 11:30 78 133/81 06/08/17 11:20 97.7 F 80 20 196/116 06/08/17 11:15 76 161/87 06/08/17 11:00 80 166/77 06/08/17 10:33 98.2 F 73 18 134/94 98 - Physical Examination General: Appears Well HEENT: Positive: PERRL, Normocephaly, Mucus Membranes Moist Neck: Positive: neck supple, trachea midline Cardiac: Positive: Reg Rate and Rhythm Lungs: Positive: clear to auscultation Neuro: Positive: Grossly Intact, Cranial Nerve 2-12 Intact Abdomen: Positive: Unremarkable, Soft, Active Bowel Sounds. Negative: Tender Skin: Positive: Clear. Negative: Rash, Wound Musculoskeletal: No Pain, Normal Range of Motion Extremities: Absent: edema - Labs and Meds Cardiac Enzymes 06/08/17 Range/Units 10:40 CK-MB (CK-2) 2.3 (0.0-4.0) ng/mL CBC 06/09/17 Range/Units 05:21 WBC 6.4 (4.5-11.0) K/mm3 RBC 3.49 L (3.65-5.03) M/mm3 Hgb 11.0 (10.1-14.3) gm/dl Hct 33.5 (30.3-42.9) % Plt Count 252 (140-440) K/mm3 Lymph # 1.8 (1.2-5.4) K/mm3 [place] # 1.0 H (0.0-0.8) K/mm3 Eos # 0.1 (0.0-0.4) K/mm3 Baso # 0.0 (0.0-0.1) K/mm3 Comprehensive Metabolic Panel 06/09/17 Range/Units 05:21 Sodium 139 (137-145) mmol/L Potassium 6.0 H D (3.6-5.0) mmol/L Chloride 92.6 L (98-107) mmol/L Carbon Dioxide 29 D (22-30) mmol/L BUN 35 H (7-17) mg/dL Creatinine 8.3 H (0.7-1.2) mg/dL Glucose 90 (65-100) mg/dL Calcium 9.3 (8.4-10.2) mg/dL - Imaging and Cardiology EKG: image reviewed Echo: report reviewed (08/2016 showed EF 55-60%, impaired relaxation, RVSP 38mmHg) Cardiac cath: report reviewed (06/2015 showed patent LAD stent and otherwise normal coronaries) - Telemetry EKG Rhythm: Sinus Rhythm - EKG Sinus rhythms and dysrhythmias: sinus rhythm Myocardial infarction: septal ND (old age or ind
[2017-06-09] MEDS: COREG PO SCH ×2 (11:22→22:38)
--- NOTE | 2017-06-09 11:50 | Event Note ---
Date: 06/09/17 - full consult dictated - reports coffee grounds emesis - pt wants egd and will plan for am if cleared
[2017-06-09] MEDS ORDERED: NACL 0.9% 1000 ML 2,000 ML ONE (12:26)
--- NOTE | 2017-06-09 12:42 | Progress Note ---
Assessment and Plan Assessment and plan: Patient is a 32 year old woman with a history of CAD s/p PCI, HTN, ESRD on HD ( //Sun schedule), lupus and noncompliance who has missed her last 2 dialysis sessions because she just didn't want ago. She says she went out of town and did not arrange hemodialysis out of town either. Although, she jeopardizes her life with consistently missing hemodialysis/noncompliance; patient denies suicide ideation. She was found to be severely hyperkalemic. Counseling done -Severe hyperkalemia due to noncompliance: Treat with hemodialysis -Worsening end-stage renal disease due to noncompliance: Nephrology is following -Metabolic acidosis related to above: Repeat BMP a.m. -DVT prophylaxis: SCDs only due to question of coffee ground emesis -Elevated troponin been evaluated by cardiology, unlikely acute coronary syndrome but related to renal disease -Lupus: Pain control Full code 06/09/2017 New issue: Suspected coffee-ground emesis, stop heparin, discussed with GI, Dr. Hans Perez, EGD a.m., monitor H&H closely History Interval history: Patient seen and examined. Follow up on current diagnosis of shortness breath and weakness. Overnight uneventful. Had n/v, ?coffee ground emesis. No cp, or severe headaches. Imaging, old records, testing, labs, nursing notes reviewed. Hospitalist Physical - Physical exam Narrative exam: GEN: Chronically debilitated, NAD, AWAKE, ALERT, ORIENTATED x 3 HEENT: NCAT, PERRL, EOMI, OP CLEAR NECK: SUPPLE, NO THYROMEGALY, NO JVD, NO LAD CVS: RRR, NORMAL S1S2 LUNGS/CHEST: Diminished breath sounds bilaterally NORMAL CHEST EXPANSION B, reduced AIR ENTRY B ABD: SOFT, NTND, GBS, NO REBOUND OR GUARDING EXT/SKIN: Bilateral leg edema MSK: FROM X 4 EXTREMITIES NEURO: CN 2-12 GROSSLY INTACT, NO FOCAL DEFICITS PSY: CALM - Constitutional Vitals: Temp Pulse Resp BP Pulse Ox 98.0 F 84 20 149/91 100 06/09/17 07:15 06/09/17 12:15 06/09/17 07:15 06/09/17 12:15 06/09/17 07:15 General appearance: Present: no acute distress Results - Labs CBC & Chem 7: 06/09/17 05:21 06/09/17 05:21 Labs: Laboratory Last Values WBC 6.4 K/mm3 (4.5-11.0) 06/09/17 05:21 RBC 3.49 M/mm3 (3.65-5.03) L 06/09/17 05:21 Hgb 11.0 gm/dl (10.1-14.3) 06/09/17 05:21 Hct 33.5 % (30.3-42.9) 06/09/17 05:21 MCV 96 fl (79-97) 06/09/17 05:21 MCH 31 pg (28-32) 06/09/17 05:21 MCHC 33 % (30-34) 06/09/17 05:21 RDW 16.2 % (13.2-15.2) H 06/09/17 05:21 Plt Count 252 K/mm3 (140-440) 06/09/17 05:21 Lymph % (Auto) 27.7 % (13.4-35.0) 06/09/17 05:21 [place] % (Auto) 14.9 % (0.0-7.3) H 06/09/17 05:21 Eos % (Auto) 1.7 % (0.0-4.3) 06/09/17 05:21 Baso % (Auto) 0.8 % (0.0-1.8) 06/09/17 05:21 Lymph # 1.8 K/mm3 (1.2-5.4) 06/09/17 05:21 [place] # 1.0 K/mm3 (0.0-0.8) H 06/09/17 05:21 Eos # 0.1 K/mm3 (0.0-0.4) 06/09/17 05:21 Baso # 0.0 K/mm3 (0.0-0.1) 06/09/17 05:21 Seg Neutrophils % 54.9 % (40.0-70.0) 06/09/17 05:21 Seg Neutrophils # 3.5 K/mm3 (1.8-7.7) 06/09/17 05:21 Sodium 139 mmol/L (137-145) 06/09/17 05:21 Potassium 6.0 mmol/L (3.6-5.0) H D 06/09/17 05:21 Chloride 92.6 mmol/L (98-107) L 06/09/17 05:21 Carbon Dioxide 29 mmol/L (22-30) D 06/09/17 05:21 Anion Gap 23 mmol/L 06/09/17 05:21 BUN 35 mg/dL (7-17) H 06/09/17 05:21 Creatinine 8.3 mg/dL (0.7-1.2) H 06/09/17 05:21 Estimated GFR 7 ml/min 06/09/17 05:21 BUN/Creatinine Ratio 4.21 % 06/09/17 05:21 Glucose 90 mg/dL (65-100) 06/09/17 05:21 Calcium 9.3 mg/dL (8.4-10.2) 06/09/17 05:21 Total Bilirubin 0.30 mg/dL (0.1-1.2) 06/07/17 22:34 AST 13 units/L (5-40) 06/07/17 22:34 ALT 24 units/L (7-56) 06/07/17 22:34 Alkaline Phosphatase 101 units/L (35-129) 06/07/17 22:34 Total Creatine Kinase 86 units/L (30-135) 06/08/17 10:40 CK-MB (CK-2) 2.3 ng/mL (0.0-4.0) 06/08/17 10:40 CK-MB (CK-2) Rel Index 2.6 (0-4) 06/08/17 10:40 Troponin T 0.065 ng/mL (0.00-0.029) H D 06/08/17 10:40 Total Protein 7.0 g/dL (6.3-8.2) 06/07/17 22:34 Albumin 3.8 g/dL (3.9-5) L 06/07/17 22:34 Albumin/Globulin Ratio 1.2 % 06/07/17 22:34 Triglycerides 316 mg/dL (2-149) H 06/07/17 22:34 Cholesterol 185 mg/dL (50-199) 06/07/17 22:34 LDL Cholesterol Direct 83 mg/dL (50-130) 06/07/17 22:34 HDL Cholesterol 39 mg/dL (40-59) L 06/07/17 22:34 Cholesterol/HDL Ratio 4.74 % 06/07/17 22:34 Lipase 101 units/L (13-60) H 06/07/17 22:34 HCG, Qual Negative (Negative) 06/07/17 22:34
[2017-06-09] MEDS ORDERED: NACL 0.9% 1000 ML 1,000 ML IV ONE (13:00)
--- NOTE | 2017-06-09 14:52 | Consultation ---
INDICATIONS: 1. Coffee-ground emesis. 2. Anemia. HISTORY OF PRESENT ILLNESS: The patient is a 32-year-old black female with history of coronary artery disease, hypertension, CHF, lupus and end-stage renal disease, on dialysis, who was admitted because she had missed dialysis. The patient reports 1 day of coffee-ground emesis. She reports no melena. Denies any weight loss. Reports she has never had any formal GI evaluation including endoscopy. The patient reports she would like to have an endoscopy. She denies any other specific GI problems or complaints. PAST MEDICAL HISTORY: 1. Hypertension. 2. Coronary artery disease. 3. CHF. 4. Hypertension. 5. Lupus disease. 6. End-stage renal disease, on dialysis. PAST SURGICAL HISTORY: 1. AV fistula. 2. Hip replacement 3. Status post cholecystectomy. 4. Status post hernia repair. MEDICATIONS: See chart. ALLERGIES: HYDROCODONE, MORPHINE, TRAMADOL, and REGLAN. SOCIAL HISTORY: Denies alcohol, tobacco or IV drug abuse. FAMILY HISTORY: Negative for colon cancer. REVIEW OF SYSTEMS: GENERAL: Reports weakness. HEENT: No visual complaints or tinnitus. PULMONARY: No shortness of breath. No cough. No chest pain. GASTROINTESTINAL: Reports nausea, vomiting, coffee-ground emesis. All points of 13-point review of systems otherwise negative. PHYSICAL EXAMINATION: VITAL SIGNS: Temperature of 98.6, pulse 81, respirations 20, blood pressure 124/69. GENERAL: Fairly nourished female in no acute distress. HEENT: Pupils equal, round, reactive to light and accommodation. Extraocular muscles intact. PULMONARY: Clear to auscultation bilaterally. CARDIOVASCULAR: Regular rhythm. Normal S1, S2. ABDOMEN: Positive bowel sounds, soft. SKIN: No obvious rashes. LABORATORY DATA: Labs pertinent for white count OF 6.4, hemoglobin and hematocrit of 11 and 33.5, platelet count of 252. Chem-7 stable except for potassium of 6. BUN and creatinine of 35 and 8.3. ASSESSMENT: A 32-year-old female with multiple medical problems, who had missed recent dialysis, now with noted nausea, vomiting, coffee-ground emesis. The patient has not had a recent GI evaluation. I discussed with her and she would like to have an endoscope. PLAN: 1. Follow hematocrit and transfuse as needed. 2. PPI daily. 3. If cleared, okay for EGD in a.m. JOB# [id number] KANWAL/JUDE
[2017-06-09] MEDS ORDERED: HEPARIN SUB-Q SCH (15:42)
[2017-06-09] MEDS: ASPIRIN PO SCH (16:41)
[2017-06-09] MEDS: TRICOR PO SCH (16:41)
[2017-06-09] MEDS: ZOFRAN IV PRN (22:39)
[2017-06-10] MEDS: DILAUDID IV PRN ×6 (01:07→23:52)
[2017-06-10] MEDS ORDERED: WATER FOR IRRIG STERILE IR ONE (08:09)
[2017-06-10 08:49] LABS: Hematocrit 35.7 % (30.3-42.9); Hemoglobin 11.8 gm/dl (10.1-14.3); Mean Corpuscular HGB Conc 33 % (30-34); Mean Corpuscular Hemoglobin 31 pg (28-32); Mean Corpuscular Volume 94 fl (79-97); Platelet Count 242 K/mm3 (140-440); Red Blood Count 3.79 M/mm3 (3.65-5.03); Red Cell Distribution Width 16.2 % (13.2-15.2); White Blood Count 6.4 K/mm3 (4.5-11.0)
[2017-06-10 09:06] LABS: BUN/Creatinine Ratio 3.33; Calcium 10.5 mg/dL (8.4-10.2); Chloride 94.5 mmol/L (98-107); Potassium 5.3 mmol/L (3.6-5.0)
[2017-06-10] MEDS ORDERED: NACL 0.9% 1000 ML 1,000 ML ONE (09:32)
[2017-06-10] MEDS: CATAPRES PO SCH (09:56)
[2017-06-10] MEDS ORDERED: D5NS 0.2% 1,000 ML IV SCH (10:00)
--- NOTE | 2017-06-10 10:03 | Progress Note ---
Assessment and Plan - Patient Problems (1) Hyperkalemia Current Visit: Yes Status: Acute Plan to address problem: Secondary to missed hemodialysis. Patient had hemodialysis 2 consecutive days. Kayexalate and IV Dextrose ordered. (2) ESRD (end stage renal disease) on dialysis Current Visit: Yes Status: Chronic Plan to address problem: Patient was last dialyzed yesterday. (3) Chest pain Current Visit: Yes Status: Acute Qualifiers: Chest pain type: other chest pain Ischemic chest pain type: I Qualified Code(s): R07.89 - Other chest pain; R07.8 - Other chest pain (4) Hypertension Current Visit: Yes Status: Chronic Qualifiers: Hypertension type: unspecified Qualified Code(s): I10 - Essential (primary ) hypertension Plan to address problem: BP well controlled. (5) Medical non-compliance Current Visit: No Status: Chronic Plan to address problem: Compliance encouraged. Subjective Date of service: 06/10/17 Principal diagnosis: chest pain Interval history: Patient c/o N & V. Objective - Vital Signs Vital signs: Vital Signs - 12hr 06/09/17 06/10/17 06/10/17 22:38 01:07 08:11 Temperature 99.1 F Pulse Rate 62 98 H Pulse Rate [ Left Radial] Respiratory 18 18 Rate Blood Pressure 140/90 113/66 O2 Sat by Pulse 96 Oximetry 06/10/17 08:15 Temperature Pulse Rate Pulse Rate [ 70 Left Radial] Respiratory 14 Rate Blood Pressure O2 Sat by Pulse Oximetry - General Appearance General appearance: well-developed, well-nourished, appears stated age, obese, other (no distress) EENT: ATNC, PERRL Neck: no JVD, supple Respiratory: Present: Clear to Ascultation Cardiology: regular, S1S2, no murmurs Gastrointestinal: normoactive bowel sounds, no tenderness, obese Neurologic: no focal deficit, no asterixis, alert and oriented x3, CN 3-12 intact Musculoskeletal: other (right arm AVF) Psychiatric: mood/affect appropriate, cooperative - Lab 06/10/17 08:35 06/10/17 08:35 Most recent lab results Calcium 10.5 mg/dL (8.4-10.2) H 06/10/17 08:35
--- NOTE | 2017-06-10 10:06 | Progress Note ---
Assessment and Plan Chest pain and possible GI possible gastroparesis nstemi type 2 Hyperkalemia ESRD, on HD CAD -s/p PCI of mid LAD 06/2014; LHC 06/2015: patent LAD stent, otherwise normal coronaries; Echo 08/2016: EF 55-60%, impaired relaxation, RVSP 38 mmHg Accelerated Hypertension Hyperlipidemia / hypertriglyceridemia Lupus Noncompliance rec : Patient is going for EGD this a.m. for recurrent vomiting and possible coffee ground emesis patient has normal LV function and echocardiogram and patent coronaries on cath patient is a moderately risk cardiovascular patient going for a moderate risk cardiovascular procedure patient has no cardiac contraindications for EGD Subjective Date of service: 06/10/17 Principal diagnosis: chest pain Interval history: Patient continued to have vomiting but no chest and shortness of breath has improved Objective Vital Signs Temp Pulse Pulse Resp BP Pulse Ox 06/10/17 08:15 70 14 06/10/17 08:11 99.1 F 98 H 18 113/66 96 06/10/17 01:07 18 06/09/17 22:38 62 140/90 06/09/17 20:59 18 06/09/17 20:57 62 140/100 06/09/17 20:12 99.9 F H 99 H 18 128/85 100 06/09/17 16:30 97.8 F 95 H 20 122/80 06/09/17 15:25 98.2 F 88 18 137/82 06/09/17 15:00 82 143/77 06/09/17 14:45 88 120/84 06/09/17 14:30 90 136/78 06/09/17 14:15 96 H 111/54 06/09/17 14:00 86 125/71 06/09/17 13:45 98 H 119/76 06/09/17 13:30 85 145/84 06/09/17 13:15 84 136/77 06/09/17 13:00 81 135/81 06/09/17 12:45 74 134/83 06/09/17 12:30 74 154/88 06/09/17 12:15 84 149/91 06/09/17 12:05 79 129/77 06/09/17 11:45 98.0 F 79 20 146/91 - Physical Examination General: Appears Well HEENT: Positive: PERRL, Normocephaly, Mucus Membranes Moist Neck: Positive: neck supple, trachea midline Cardiac: Positive: Reg Rate and Rhythm, Audible Murmur (/) Lungs: Positive: clear to auscultation Neuro: Positive: Grossly Intact, Cranial Nerve 2-12 Intact Abdomen: Positive: Unremarkable, Soft, Active Bowel Sounds. Negative: Tender Skin: Positive: Clear. Negative: Rash, Wound Musculoskeletal: No Pain, Normal Range of Motion Extremities: Absent: edema - Labs and Meds CBC 06/10/17 Range/Units 08:35 WBC 6.4 (4.5-11.0) K/mm3 RBC 3.79 (3.65-5.03) M/mm3 Hgb 11.8 (10.1-14.3) gm/dl Hct 35.7 (30.3-42.9) % Plt Count 242 (140-440) K/mm3 Comprehensive Metabolic Panel 06/10/17 Range/Units 08:35 Sodium 139 (137-145) mmol/L Potassium 5.3 H (3.6-5.0) mmol/L Chloride 94.5 L (98-107) mmol/L Carbon Dioxide 28 (22-30) mmol/L BUN 22 H (7-17) mg/dL Creatinine 6.6 H (0.7-1.2) mg/dL Glucose 91 (65-100) mg/dL Calcium 10.5 H (8.4-10.2) mg/dL - Imaging and Cardiology EKG: image reviewed Echo: report reviewed (08/2016 showed EF 55-60%, impaired relaxation, RVSP 38mmHg), other (06/10/2017 normal LV function EF 5560% with impaired relaxation pattern patient has heavy calcification of the posterior mitral leaflet with no mitral stenosis mild mitral regurgitation mild to moderate aortic regurgitation) Cardiac cath: report reviewed (06/2015 showed patent LAD stent and otherwise normal coronaries) - Telemetry EKG Rhythm: Sinus Rhythm - EKG Sinus rhythms and dysrhythmias: sinus rhythm Myocardial infarction: septal VT (old age or ind
[2017-06-10] MEDS ORDERED: DIPRIVAN 10 MG/ML IV ONE ×2 (10:26)
--- NOTE | 2017-06-10 10:28 | Progress Note ---
Assessment and Plan Assessment and plan: Patient is a 32 year old woman with a history of CAD s/p PCI, HTN, ESRD on HD ( //Sun schedule), lupus and noncompliance who has missed her last 2 dialysis sessions prior to come to the hospital because she just didn't want ago. She reports going out of town ([place] or [place], [place]) and did not arrange hemodialysis out of town. Although, she jeopardizes her life with consistently missing hemodialysis/noncompliance; patient denies suicide ideation. She was found to be severely hyperkalemic. Counseling done -Severe hyperkalemia due to noncompliance: Treat with hemodialysis -Worsening end-stage renal disease due to noncompliance: Nephrology is following -Metabolic acidosis related to above: Repeat BMP a.m. -DVT prophylaxis: SCDs only due to question of coffee ground emesis -Elevated troponin been evaluated by cardiology, unlikely acute coronary syndrome but related to renal disease -Lupus: Pain control Full code 06/09/2017 New issue: Suspected coffee-ground emesis, stop heparin, discussed with GI, Dr. Hans Perez, EGD a.m., monitor H&H closely 06/10/17: EGD today, hypotension/blood pressure on the low side we will stop clonidine and continue to monitor, gentle hydration started History Interval history: Patient seen and examined. Follow up on current diagnosis of shortness breath and weakness which has improved with hemodialysis, still nausea but not vomiting currently. Overnight uneventful. No cp, or severe headaches. Imaging, old records, testing, labs, nursing notes reviewed. Hospitalist Physical - Physical exam Narrative exam: GEN: Chronically debilitated, NAD, AWAKE, ALERT, ORIENTATED x 3 HEENT: NCAT, PERRL, EOMI, OP CLEAR NECK: SUPPLE, NO THYROMEGALY, NO JVD, NO LAD CVS: RRR, NORMAL S1S2 LUNGS/CHEST: Diminished breath sounds bilaterally NORMAL CHEST EXPANSION B, reduced AIR ENTRY B ABD: SOFT, NTND, GBS, NO REBOUND OR GUARDING EXT/SKIN: Bilateral leg edema MSK: FROM X 4 EXTREMITIES NEURO: CN 2-12 GROSSLY INTACT, NO FOCAL DEFICITS PSY: CALM - Constitutional Vitals: Temp Pulse Resp BP Pulse Ox 99.1 F 70 14 113/66 96 06/10/17 08:11 06/10/17 08:15 06/10/17 08:15 06/10/17 08:11 06/10/17 08:11 General appearance: Present: no acute distress Results - Labs CBC & Chem 7: 06/10/17 08:35 06/10/17 08:35 Labs: Laboratory Last Values WBC 6.4 K/mm3 (4.5-11.0) 06/10/17 08:35 RBC 3.79 M/mm3 (3.65-5.03) 06/10/17 08:35 Hgb 11.8 gm/dl (10.1-14.3) 06/10/17 08:35 Hct 35.7 % (30.3-42.9) 06/10/17 08:35 MCV 94 fl (79-97) 06/10/17 08:35 MCH 31 pg (28-32) 06/10/17 08:35 MCHC 33 % (30-34) 06/10/17 08:35 RDW 16.2 % (13.2-15.2) H 06/10/17 08:35 Plt Count 242 K/mm3 (140-440) 06/10/17 08:35 Lymph % (Auto) 27.7 % (13.4-35.0) 06/09/17 05:21 [place] % (Auto) 14.9 % (0.0-7.3) H 06/09/17 05:21 Eos % (Auto) 1.7 % (0.0-4.3) 06/09/17 05:21 Baso % (Auto) 0.8 % (0.0-1.8) 06/09/17 05:21 Lymph # 1.8 K/mm3 (1.2-5.4) 06/09/17 05:21 [place] # 1.0 K/mm3 (0.0-0.8) H 06/09/17 05:21 Eos # 0.1 K/mm3 (0.0-0.4) 06/09/17 05:21 Baso # 0.0 K/mm3 (0.0-0.1) 06/09/17 05:21 Seg Neutrophils % 54.9 % (40.0-70.0) 06/09/17 05:21 Seg Neutrophils # 3.5 K/mm3 (1.8-7.7) 06/09/17 05:21 Sodium 139 mmol/L (137-145) 06/10/17 08:35 Potassium 5.3 mmol/L (3.6-5.0) H 06/10/17 08:35 Chloride 94.5 mmol/L (98-107) L 06/10/17 08:35 Carbon Dioxide 28 mmol/L (22-30) 06/10/17 08:35 Anion Gap 22 mmol/L 06/10/17 08:35 BUN 22 mg/dL (7-17) H 06/10/17 08:35 Creatinine 6.6 mg/dL (0.7-1.2) H 06/10/17 08:35 Estimated GFR 9 ml/min 06/10/17 08:35 BUN/Creatinine Ratio 3.33 % 06/10/17 08:35 Glucose 91 mg/dL (65-100) 06/10/17 08:35 Calcium 10.5 mg/dL (8.4-10.2) H 06/10/17 08:35 Total Bilirubin 0.30 mg/dL (0.1-1.2) 06/07/17 22:34 AST 13 units/L (5-40) 06/07/17 22:34 ALT 24 units/L (7-56) 06/07/17 22:34 Alkaline Phosphatase 101 units/L (35-129) 06/07/17 22:34 Total Creatine Kinase 86 units/L (30-135) 06/08/17 10:40 CK-MB (CK-2) 2.3 ng/mL (0.0-4.0) 06/08/17 10:40 CK-MB (CK-2) Rel Index 2.6 (0-4) 06/08/17 10:40 Troponin T 0.065 ng/mL (0.00-0.029) H D 06/08/17 10:40 Total Protein 7.0 g/dL (6.3-8.2) 06/07/17 22:34 Albumin 3.8 g/dL (3.9-5) L 06/07/17 22:34 Albumin/Globulin Ratio 1.2 % 06/07/17 22:34 Triglycerides 316 mg/dL (2-149) H 06/07/17 22:34 Cholesterol 185 mg/dL (50-199) 06/07/17 22:34 LDL Cholesterol Direct 83 mg/dL (50-130) 06/07/17 22:34 HDL Cholesterol 39 mg/dL (40-59) L 06/07/17 22:34 Cholesterol/HDL Ratio 4.74 % 06/07/17 22:34 Lipase 101 units/L (13-60) H 06/07/17 22:34 HCG, Qual Negative (Negative) 06/07/17 22:34
[2017-06-10] MEDS ORDERED: XYLOCAINE MPF 2% ONE (10:32)
--- NOTE | 2017-06-10 10:49 | Post Operative Note ---
Pre-op diagnosis: coffee emesis Post-op diagnosis: same Findings: EGD: small hiatal hernia - few ulceration body/antrum - duodenitis (bx's) Procedure: EGD Anesthesia: MAC Surgeon: ALONDRA SMALL Estimated blood loss: none Pathology: list Specimen disposition: to lab Condition: stable Disposition: floor
--- NOTE | 2017-06-10 10:53 | Anesthesia Day of Surgery ---
Anesthesia Day of Surgery - Day of Surgery Patient Examined: Yes Patient H&P Reviewed: Yes Patient is NPO: Yes Beta Blockers: Yes
--- NOTE | 2017-06-10 10:54 | Anesthesia Consultation ---
Anesthesia Consult and Med Hx Date of service: 06/10/17 - Airway Anesthetic Teeth Evaluation: Good, Dentures (top) ROM Head & Neck: Adequate Mental/Hyoid Distance: Adequate Mallampati Class: Class II Intubation Access Assessment: Probably Good - Pulmonary Exam CTA: Yes - Cardiac Exam Cardiac Exam: RRR - Pre-Operative Health Status ASA Pre-Surgery Classification: ASA4 Proposed Anesthetic Plan: MAC - Pulmonary Hx Smoking: Yes (quit 6 yrs ago, smoked x 14 yrs 1PPD) Hx Asthma: No COPD: No Hx Pneumonia: No - Cardiovascular System Hx Hypertension: Yes (EF NORMAL) Hx Coronary Artery Disease: Yes (STENT IN LAD) Hx Heart Attack/AMI: Yes Hx Angina: Yes Hx Heart Murmur: Yes - Central Nervous System Hx Seizures: No CVA: No Hx Psychiatric Problems: No - Gastrointestinal Hx Gastroesophageal Reflux Disease: No - Endocrine Hx Renal Disease: Yes (hemodialysis T--) Hx End Stage Renal Disease: Yes Hx Liver Disease: No Hx Non-Insulin Dependent Diabetes: No Hx Hypothyroidism: No - Hematic Hx Anemia: Yes (chronic. On Epo) Hx Sickle Cell Disease: ( ) - Other Systems Hx Cancer: No Hx Obesity: Yes - Additional Comments Anesthesia Medical History Comments: LUPUS, HYPERKALEMIA 5.3 TODAY
--- NOTE | 2017-06-10 10:56 | Post Anesthesia Evaluation ---
- Post Anesthesia Evaluation Patient Participated: Yes Airway Patent: Yes Stable Respiratory Function: Yes Nausea/Vomiting: No Temp > 96.8F: Yes Pain Manageable: Yes Adequeate Hydration: Yes Anesthesia Complications: No Block Receding Appropriately: Not Applicable Patient on Ventilator: No
[2017-06-10] MEDS: KIONEX PO SCH ×2 (12:09→20:05)
[2017-06-10] MEDS: ASPIRIN PO SCH (12:09)
[2017-06-10] MEDS: COREG PO SCH ×2 (12:10→22:12)
[2017-06-10] MEDS: TRICOR PO SCH (14:31)
[2017-06-10] MEDS: ZOFRAN IV PRN (20:15)
[2017-06-11] MEDS: ZOFRAN IV PRN (03:57)
[2017-06-11] MEDS: DILAUDID IV PRN ×5 (03:57→22:10)
--- NOTE | 2017-06-11 07:54 | Operative Report ---
INDICATION: 1. Coffee emesis. 2. Anemia. REFERRING PHYSICIAN: Vern Yoder MD MEDICATIONS: Propofol per WHEELABRATOR OPERATOR. COMPLICATIONS: None. DESCRIPTION OF PROCEDURE: The patient brought to procedure suite. The patient had the procedure discussed with her at length. All risks, complications, and benefits discussed after which the patient signed for the procedure to be performed. The patient was placed in left lateral decubitus position. Mouth block was placed in the patient's oral cavity. After adequate sedation medication as above, endoscope placed in the mouth and brought to the level of the second portion of duodenum. Retroflexion view performed. The patient's vital signs remained stable throughout the procedure. FINDINGS: There was noted to be a small hiatal hernia noted at GE junction at 40 cm from the gums. Mild irritation noted at GE junction, otherwise the esophagus appeared normal. There were few small shallow ulcerations without bleeding stigmata noted in the gastric body and antrum. Biopsies were taken and sent to pathology. The remaining stomach otherwise appeared to be normal. There was mild bulb duodenitis. Biopsies were taken and sent to pathology. The remaining duodenum otherwise appeared to be normal. Retroflexion view performed in the stomach showed no other pathology other than noted above. The patient tolerated the procedure well. No complications during the procedure. IMPRESSION: 1. Hiatal hernia. 2. Otherwise normal esophagus. 3. Ulcerations without bleeding stigmata. Gastric body and antral biopsies performed. 4. Otherwise normal stomach. 5. Duodenitis, biopsies performed. 6. Otherwise normal duodenum. RECOMMENDATIONS: 1. Followup biopsy results. 2. For H. pylori positive, we will treat. 3. PPI daily. 4. The patient is otherwise stable from GI standpoint, we will sign off, call if needed. JOB# [id number] CAB/NTS
[2017-06-11 11:05] LABS: BUN/Creatinine Ratio 3.4; Calcium 9.6 mg/dL (8.4-10.2); Chloride 93.7 mmol/L (98-107); Potassium 5.4 mmol/L (3.6-5.0)
--- NOTE | 2017-06-11 11:30 | Progress Note ---
Assessment and Plan ACS ruled out. Chest pain resolved. D/c ASA and resume Plavix in setting of EGD findings (small hiatal hernia, few ulceration body/antrum, duodenitis). Cont all other present cardiac management. Currently stable cardiac status. Pt may discharge home from cardiology standpoint. Will see PRN. Recommend follow up in our office with Olimpia Barrera NP, within 2 weeks of hospital discharge ([phone]). The patient has been seen in conjunction with Dr. Everett who agrees with the assessment and plan of care. - Patient Problems (1) Atypical chest pain Current Visit: Yes Status: Resolved (2) Elevated troponin Current Visit: Yes Status: Chronic (3) Hyperkalemia Current Visit: Yes Status: Acute (4) ESRD (end stage renal disease) on dialysis Current Visit: Yes Status: Chronic (5) Gastric ulcer Current Visit: Yes Status: Acute Qualifiers: Gastric ulcer chronicity: G Gastric ulcer complication status: G (6) CAD (coronary artery disease) Current Visit: No Status: Chronic Qualifiers: Coronary Disease-Associated Artery/Lesion type: [place] artery [place] vs. transplanted heart: [place] heart Associated angina: angina presence unspecified Qualified Code(s): I25.10 - Atherosclerotic heart disease of [place] coronary artery without angina pectoris (7) Stented coronary artery Current Visit: Yes Status: Chronic (8) Accelerated hypertension Current Visit: Yes Status: Acute (9) Hyperlipidemia Current Visit: Yes Status: Chronic Qualifiers: Hyperlipidemia type: H (10) Hypertriglyceridemia Current Visit: Yes Status: Chronic (11) Lupus Current Visit: Yes Status: Chronic Qualifiers: Systemic lupus erythematosus type: S Systemic lupus erythematosus organ involvement: S (12) Medical non-compliance Current Visit: Yes Status: Chronic Subjective Date of service: 06/11/17 Principal diagnosis: chest pain Interval history: Pt resting in bed, denies cardiac complaints. Still c/o nausea, vomiting, and abdominal pain. S/p EGD yesterday. Objective Last Vital Signs Temp 97.8 F 06/11/17 08:35 Pulse 89 06/11/17 08:35 Resp 20 06/11/17 08:35 BP 125/75 06/11/17 08:35 Pulse Ox 100 06/11/17 08:35 - Physical Examination General: Appears Well HEENT: Positive: PERRL, Normocephaly, Mucus Membranes Moist Neck: Positive: neck supple, trachea midline Cardiac: Positive: Reg Rate and Rhythm, S1/S2 Lungs: Positive: clear to auscultation Neuro: Positive: Grossly Intact, Cranial Nerve 2-12 Intact Abdomen: Positive: Unremarkable, Soft, Active Bowel Sounds. Negative: Tender Skin: Positive: Clear. Negative: Rash, Wound Musculoskeletal: No Pain, Normal Range of Motion Extremities: Absent: edema - Labs and Meds Comprehensive Metabolic Panel 06/11/17 Range/Units 10:32 Sodium 139 (137-145) mmol/L Potassium 5.4 H (3.6-5.0) mmol/L Chloride 93.7 L (98-107) mmol/L Carbon Dioxide 27 (22-30) mmol/L BUN 30 H (7-17) mg/dL Creatinine 8.8 H (0.7-1.2) mg/dL Glucose 91 (65-100) mg/dL Calcium 9.6 (8.4-10.2) mg/dL - Imaging and Cardiology EKG: image reviewed Echo: report reviewed (08/2016 showed EF 55-60%, impaired relaxation, RVSP 38mmHg), other (06/10/2017 normal LV function EF 5560% with impaired relaxation pattern patient has heavy calcification of the posterior mitral leaflet with no mitral stenosis mild mitral regurgitation mild to moderate aortic regurgitation) Cardiac cath: report reviewed (06/2015 showed patent LAD stent and otherwise normal coronaries) - EKG Sinus rhythms and dysrhythmias: sinus rhythm Myocardial infarction: septal [place] (old age or ind
[2017-06-11] MEDS: COREG PO SCH ×2 (11:38→22:11)
[2017-06-11] MEDS: PLAVIX PO SCH (11:38)
[2017-06-11] MEDS: TRICOR PO SCH (11:39)
[2017-06-11] MEDS: ASPIRIN PO SCH (11:43)
--- NOTE | 2017-06-11 11:47 | Progress Note ---
Assessment and Plan - Patient Problems (1) Hyperkalemia Current Visit: Yes Status: Acute Plan to address problem: Patient remain hyperkalemic inspite 2 consecutive days of hemodialysis, kayexalate and IV Dextrose. Repeat 2 doses of Kayexalate today. Continue IV D5 1/4 NS. Hemodialysis tomorrow. (2) ESRD (end stage renal disease) on dialysis Current Visit: Yes Status: Chronic Plan to address problem: Hemodialysis three times a week(TTS). (3) Chest pain Current Visit: Yes Status: Acute Qualifiers: Chest pain type: other chest pain Ischemic chest pain type: I Qualified Code(s): R07.89 - Other chest pain; R07.8 - Other chest pain (4) Hypertension Current Visit: Yes Status: Chronic Qualifiers: Hypertension type: unspecified Qualified Code(s): I10 - Essential (primary ) hypertension Plan to address problem: BP well controlled. (5) Medical non-compliance Current Visit: Yes Status: Chronic Plan to address problem: Compliance encouraged. Subjective Date of service: 06/11/17 Principal diagnosis: chest pain Interval history: Patient continues to have N & V. Objective - Vital Signs Vital signs: Vital Signs - 12hr 06/10/17 06/11/17 06/11/17 23:52 00:22 03:57 Temperature Pulse Rate Respiratory 18 18 20 Rate Respiratory Rate [Bilateral Upper Abdomen] Blood Pressure O2 Sat by Pulse Oximetry 06/11/17 06/11/17 06/11/17 04:27 05:06 08:35 Temperature 97.8 F Pulse Rate 89 Respiratory 18 20 Rate Respiratory 20 Rate [Bilateral Upper Abdomen] Blood Pressure 125/75 O2 Sat by Pulse 100 Oximetry 06/11/17 11:38 Temperature Pulse Rate 89 Respiratory Rate Respiratory Rate [Bilateral Upper Abdomen] Blood Pressure 125/75 O2 Sat by Pulse Oximetry - General Appearance General appearance: well-developed, well-nourished, appears stated age, obese, other (no distress) EENT: ATNC, PERRL, mucous membranes moist, hearing intact, vision intact Neck: supple Respiratory: Present: Clear to Ascultation Cardiology: regular, S1S2, no murmurs Gastrointestinal: normoactive bowel sounds, no tenderness, no distended, obese Integumentary: no rash Neurologic: no focal deficit, no asterixis, alert and oriented x3, CN 3-12 intact Musculoskeletal: other (right arm AVF) Psychiatric: mood/affect appropriate, cooperative - Lab 06/10/17 08:35 06/11/17 10:32 Most recent lab results Calcium 9.6 mg/dL (8.4-10.2) 06/11/17 10:32
--- NOTE | 2017-06-11 12:24 | Progress Note ---
Assessment and Plan Assessment and plan: Patient is a 32 year old woman with a history of CAD s/p PCI, HTN, ESRD on HD ( //Sun schedule), lupus and noncompliance who has missed her last 2 dialysis sessions prior to come to the hospital because she just didn't want ago. She reports going out of town ([place] or [place], [place]) and did not arrange hemodialysis out of town. Although, she jeopardizes her life with consistently missing hemodialysis/noncompliance; patient denies suicide ideation. She was found to be severely hyperkalemic. Counseling done -Severe hyperkalemia due to noncompliance: Treat with hemodialysis -Worsening end-stage renal disease due to noncompliance: Nephrology is following -Metabolic acidosis related to above: Repeat BMP a.m. -DVT prophylaxis: SCDs only due to question of coffee ground emesis -Elevated troponin been evaluated by cardiology, unlikely acute coronary syndrome but related to renal disease -Lupus: Pain control Full code 06/09/2017 New issue: Suspected coffee-ground emesis, stop heparin, discussed with GI, Dr. Hans Perez, EGD a.m., monitor H&H closely 06/10/17: EGD today, hypotension/blood pressure on the low side we will stop clonidine and continue to monitor, gentle hydration started Procedure: EGD Plan: f/u bx's - PPI qd - diet as tolerated - follow labs - no need further GI input at this time, call if needed Pre-op diagnosis: coffee emesis Post-op diagnosis: same Findings: EGD: small hiatal hernia - few ulceration body/antrum - duodenitis (bx's) per Cardiology: "ACS ruled out. Chest pain resolved. D/c ASA and resume Plavix in setting of EGD findings (small hiatal hernia, few ulceration body/antrum, duodenitis). Cont all other present cardiac management. Currently stable cardiac status. Pt may discharge home from cardiology standpoint. Will see PRN. Recommend follow up in our office with Olimpia Barrera NP, within 2 weeks of hospital discharge ([phone])." 06/11/17: still with hyperkalemia, once stabilized and cleared by Renal she can be discharged History Interval history: Patient seen and examined. Follow up on current diagnosis of shortness breath and weakness which has improved with hemodialysis, still nausea but not vomiting currently. Overnight uneventful. No cp, or severe headaches. Imaging, old records, testing, labs, nursing notes reviewed. Hospitalist Physical - Physical exam Narrative exam: GEN: Chronically debilitated, NAD, AWAKE, ALERT, ORIENTATED x 3 HEENT: NCAT, PERRL, EOMI, OP CLEAR NECK: SUPPLE, NO THYROMEGALY, NO JVD, NO LAD CVS: RRR, NORMAL S1S2 LUNGS/CHEST: Diminished breath sounds bilaterally NORMAL CHEST EXPANSION B, reduced AIR ENTRY B ABD: SOFT, NTND, GBS, NO REBOUND OR GUARDING EXT/SKIN: Bilateral leg edema MSK: FROM X 4 EXTREMITIES NEURO: CN 2-12 GROSSLY INTACT, NO FOCAL DEFICITS PSY: CALM - Constitutional Vitals: Temp Pulse Resp BP Pulse Ox 97.8 F 89 20 125/75 100 06/11/17 08:35 06/11/17 11:38 06/11/17 08:35 06/11/17 11:38 06/11/17 08:35 General appearance: Present: no acute distress Results - Labs CBC & Chem 7: 06/10/17 08:35 06/11/17 10:32 Labs: Laboratory Last Values WBC 6.4 K/mm3 (4.5-11.0) 06/10/17 08:35 RBC 3.79 M/mm3 (3.65-5.03) 06/10/17 08:35 Hgb 11.8 gm/dl (10.1-14.3) 06/10/17 08:35 Hct 35.7 % (30.3-42.9) 06/10/17 08:35 MCV 94 fl (79-97) 06/10/17 08:35 MCH 31 pg (28-32) 06/10/17 08:35 MCHC 33 % (30-34) 06/10/17 08:35 RDW 16.2 % (13.2-15.2) H 06/10/17 08:35 Plt Count 242 K/mm3 (140-440) 06/10/17 08:35 Lymph % (Auto) 27.7 % (13.4-35.0) 06/09/17 05:21 [place] % (Auto) 14.9 % (0.0-7.3) H 06/09/17 05:21 Eos % (Auto) 1.7 % (0.0-4.3) 06/09/17 05:21 Baso % (Auto) 0.8 % (0.0-1.8) 06/09/17 05:21 Lymph # 1.8 K/mm3 (1.2-5.4) 06/09/17 05:21 [place] # 1.0 K/mm3 (0.0-0.8) H 06/09/17 05:21 Eos # 0.1 K/mm3 (0.0-0.4) 06/09/17 05:21 Baso # 0.0 K/mm3 (0.0-0.1) 06/09/17 05:21 Seg Neutrophils % 54.9 % (40.0-70.0) 06/09/17 05:21 Seg Neutrophils # 3.5 K/mm3 (1.8-7.7) 06/09/17 05:21 Sodium 139 mmol/L (137-145) 06/11/17 10:32 Potassium 5.4 mmol/L (3.6-5.0) H 06/11/17 10:32 Chloride 93.7 mmol/L (98-107) L 06/11/17 10:32 Carbon Dioxide 27 mmol/L (22-30) 06/11/17 10:32 Anion Gap 24 mmol/L 06/11/17 10:32 BUN 30 mg/dL (7-17) H 06/11/17 10:32 Creatinine 8.8 mg/dL (0.7-1.2) H 06/11/17 10:32 Estimated GFR 6 ml/min 06/11/17 10:32 BUN/Creatinine Ratio 3.40 % 06/11/17 10:32 Glucose 91 mg/dL (65-100) 06/11/17 10:32 Calcium 9.6 mg/dL (8.4-10.2) 06/11/17 10:32 Total Bilirubin 0.30 mg/dL (0.1-1.2) 06/07/17 22:34 AST 13 units/L (5-40) 06/07/17 22:34 ALT 24 units/L (7-56) 06/07/17 22:34 Alkaline Phosphatase 101 units/L (35-129) 06/07/17 22:34 Total Creatine Kinase 86 units/L (30-135) 06/08/17 10:40 CK-MB (CK-2) 2.3 ng/mL (0.0-4.0) 06/08/17 10:40 CK-MB (CK-2) Rel Index 2.6 (0-4) 06/08/17 10:40 Troponin T 0.065 ng/mL (0.00-0.029) H D 06/08/17 10:40 Total Protein 7.0 g/dL (6.3-8.2) 06/07/17 22:34 Albumin 3.8 g/dL (3.9-5) L 06/07/17 22:34 Albumin/Globulin Ratio 1.2 % 06/07/17 22:34 Triglycerides 316 mg/dL (2-149) H 06/07/17 22:34 Cholesterol 185 mg/dL (50-199) 06/07/17 22:34 LDL Cholesterol Direct 83 mg/dL (50-130) 06/07/17 22:34 HDL Cholesterol 39 mg/dL (40-59) L 06/07/17 22:34 Cholesterol/HDL Ratio 4.74 % 06/07/17 22:34 Lipase 101 units/L (13-60) H 06/07/17 22:34 HCG, Qual Negative (Negative) 06/07/17 22:34
[2017-06-11] MEDS: KIONEX PO SCH ×2 (13:09→17:30)
[2017-06-12] MEDS: DILAUDID IV PRN ×2 (02:37→06:58)
[2017-06-12] MEDS: ZOFRAN IV PRN ×2 (04:16→08:44)
[2017-06-12] MEDS: PERCOCET 5/325 PO PRN ×2 (05:43→13:55)
[2017-06-12 06:57] LABS: BUN/Creatinine Ratio 3.52; Calcium 9.5 mg/dL (8.4-10.2); Chloride 94.8 mmol/L (98-107); Potassium 5.6 mmol/L (3.6-5.0)
--- NOTE | 2017-06-12 08:24 | Progress Note ---
Assessment and Plan - Patient Problems (1) Hyperkalemia Current Visit: Yes Status: Acute Plan to address problem: Patient remain hyperkalemic. Hemodialysis today with low potassium bath. Low potassium diet. (2) ESRD (end stage renal disease) on dialysis Current Visit: Yes Status: Chronic Plan to address problem: Hemodialysis three times a week(TTS). (3) Chest pain Current Visit: Yes Status: Acute Qualifiers: Chest pain type: other chest pain Ischemic chest pain type: I Qualified Code(s): R07.89 - Other chest pain; R07.8 - Other chest pain (4) Hypertension Current Visit: Yes Status: Chronic Qualifiers: Hypertension type: unspecified Qualified Code(s): I10 - Essential (primary ) hypertension Plan to address problem: BP well controlled. (5) Medical non-compliance Current Visit: Yes Status: Chronic Plan to address problem: Compliance encouraged. Subjective Date of service: 06/12/17 Principal diagnosis: chest pain Interval history: Patient continues to have N & V. Objective - Vital Signs Vital signs: Vital Signs - 12hr 06/11/17 06/11/17 06/11/17 22:00 22:07 22:10 Temperature 99.2 F Pulse Rate 86 Respiratory 19 19 Rate Respiratory 19 Rate [Bilateral Upper Abdomen] Blood Pressure 170/83 O2 Sat by Pulse 97 Oximetry 06/11/17 06/11/17 06/12/17 22:11 22:40 00:00 Temperature 98.2 F Pulse Rate 86 90 Respiratory 20 20 Rate Respiratory Rate [Bilateral Upper Abdomen] Blood Pressure 170/83 139/88 O2 Sat by Pulse 98 Oximetry 06/12/17 06/12/17 06/12/17 02:37 03:07 05:43 Temperature Pulse Rate Respiratory 20 20 20 Rate Respiratory Rate [Bilateral Upper Abdomen] Blood Pressure O2 Sat by Pulse Oximetry 06/12/17 06/12/17 06:44 06:58 Temperature Pulse Rate 92 H Respiratory 20 Rate Respiratory Rate [Bilateral Upper Abdomen] Blood Pressure O2 Sat by Pulse Oximetry - General Appearance General appearance: well-developed, well-nourished, appears stated age, obese, other (no distress) EENT: ATNC, PERRL, mucous membranes moist, hearing intact, vision intact Neck: supple Respiratory: Present: Clear to Ascultation Cardiology: regular, S1S2, no murmurs Gastrointestinal: normoactive bowel sounds, obese Neurologic: no focal deficit, no asterixis, alert and oriented x3, CN 3-12 intact Musculoskeletal: other (no edema, right arm AVF) Psychiatric: mood/affect appropriate, cooperative - Lab 06/10/17 08:35 06/12/17 06:04 Most recent lab results Calcium 9.5 mg/dL (8.4-10.2) 06/12/17 06:04
[2017-06-12] MEDS ORDERED: NACL 0.9% 100 ML IV PRN (08:51)
[2017-06-12] MEDS: PLAVIX PO SCH (10:25)
[2017-06-12] MEDS: TRICOR PO SCH (10:25)
[2017-06-12] MEDS: COREG PO SCH (10:25)
--- NOTE | 2017-06-12 10:40 | Progress Note ---
Assessment and Plan Assessment and plan: Nausea and vomiting. Patient reportedly previously had coffee-ground emesis. EGD revealed small hiatal hernia, a few ulcerations in the body and antrum and duodenitis. Duodenitis. Start Protonix. Chest pain. Resolved. ACS ruled out per cardiology. Elevated troponin likely related to renal disease. Aspirin discontinued but Plavix resumed in setting of EGD findings. Hyperkalemia. Continue hemodialysis per nephrology. ESRD. Continue hemodialysis Sunday, and Sunday. Hypertension. Continue antihypertensives medications. SLE. Stable. Continue pain control. Medical noncompliance. History Interval history: Patient complains of nausea and vomiting 4 this morning. Patient reports dark green vomitus. Patient did have low-grade temperature 100.3. Hospitalist Physical - Constitutional Vitals: Temp Pulse Resp BP Pulse Ox 100.3 F H 93 H 18 140/92 97 06/12/17 08:25 06/12/17 08:25 06/12/17 08:25 06/12/17 08:25 06/12/17 08:25 General appearance: Present: no acute distress - EENT Eyes: Present: PERRL, EOM intact ENT: hearing intact, clear oral mucosa, dentition normal - Neck Neck: Present: supple, normal ROM - Respiratory Respiratory effort: normal Respiratory: bilateral: diminished, rhonchi - Cardiovascular Rhythm: regular Heart Sounds: Present: S1 & S2. Absent: gallop, rub - Extremities Extremities: no ischemia, No edema, Full ROM - Abdominal General gastrointestinal: soft, non-tender, non-distended, normal bowel sounds - Integumentary Integumentary: Present: clear, warm, dry - Neurologic Neurologic: CNII-XII intact, moves all extremities Results - Labs CBC & Chem 7: 06/10/17 08:35 06/12/17 06:04 Labs: Laboratory Last Values WBC 6.4 K/mm3 (4.5-11.0) 06/10/17 08:35 RBC 3.79 M/mm3 (3.65-5.03) 06/10/17 08:35 Hgb 11.8 gm/dl (10.1-14.3) 06/10/17 08:35 Hct 35.7 % (30.3-42.9) 06/10/17 08:35 MCV 94 fl (79-97) 06/10/17 08:35 MCH 31 pg (28-32) 06/10/17 08:35 MCHC 33 % (30-34) 06/10/17 08:35 RDW 16.2 % (13.2-15.2) H 06/10/17 08:35 Plt Count 242 K/mm3 (140-440) 06/10/17 08:35 Lymph % (Auto) 27.7 % (13.4-35.0) 06/09/17 05:21 [place] % (Auto) 14.9 % (0.0-7.3) H 06/09/17 05:21 Eos % (Auto) 1.7 % (0.0-4.3) 06/09/17 05:21 Baso % (Auto) 0.8 % (0.0-1.8) 06/09/17 05:21 Lymph # 1.8 K/mm3 (1.2-5.4) 06/09/17 05:21 [place] # 1.0 K/mm3 (0.0-0.8) H 06/09/17 05:21 Eos # 0.1 K/mm3 (0.0-0.4) 06/09/17 05:21 Baso # 0.0 K/mm3 (0.0-0.1) 06/09/17 05:21 Seg Neutrophils % 54.9 % (40.0-70.0) 06/09/17 05:21 Seg Neutrophils # 3.5 K/mm3 (1.8-7.7) 06/09/17 05:21 Sodium 138 mmol/L (137-145) 06/12/17 06:04 Potassium 5.6 mmol/L (3.6-5.0) H 06/12/17 06:04 Chloride 94.8 mmol/L (98-107) L 06/12/17 06:04 Carbon Dioxide 25 mmol/L (22-30) 06/12/17 06:04 Anion Gap 24 mmol/L 06/12/17 06:04 BUN 36 mg/dL (7-17) H 06/12/17 06:04 Creatinine 10.2 mg/dL (0.7-1.2) H 06/12/17 06:04 Estimated GFR 5 ml/min 06/12/17 06:04 BUN/Creatinine Ratio 3.52 % 06/12/17 06:04 Glucose 100 mg/dL (65-100) 06/12/17 06:04 Calcium 9.5 mg/dL (8.4-10.2) 06/12/17 06:04 Total Bilirubin 0.30 mg/dL (0.1-1.2) 06/07/17 22:34 AST 13 units/L (5-40) 06/07/17 22:34 ALT 24 units/L (7-56) 06/07/17 22:34 Alkaline Phosphatase 101 units/L (35-129) 06/07/17 22:34 Total Creatine Kinase 86 units/L (30-135) 06/08/17 10:40 CK-MB (CK-2) 2.3 ng/mL (0.0-4.0) 06/08/17 10:40 CK-MB (CK-2) Rel Index 2.6 (0-4) 06/08/17 10:40 Troponin T 0.065 ng/mL (0.00-0.029) H D 06/08/17 10:40 Total Protein 7.0 g/dL (6.3-8.2) 06/07/17 22:34 Albumin 3.8 g/dL (3.9-5) L 06/07/17 22:34 Albumin/Globulin Ratio 1.2 % 06/07/17 22:34 Triglycerides 316 mg/dL (2-149) H 06/07/17 22:34 Cholesterol 185 mg/dL (50-199) 06/07/17 22:34 LDL Cholesterol Direct 83 mg/dL (50-130) 06/07/17 22:34 HDL Cholesterol 39 mg/dL (40-59) L 06/07/17 22:34 Cholesterol/HDL Ratio 4.74 % 06/07/17 22:34 Lipase 101 units/L (13-60) H 06/07/17 22:34 HCG, Qual Negative (Negative) 06/07/17 22:34
[2017-06-12] MEDS ORDERED: NACL 0.9 (PRIMING MACHINE ONLY DIALYSIS) MC ONE (13:33)
--- NOTE | 2017-06-12 14:06 | Discharge Summary ---
Providers - Providers Date of Admission: 06/08/17 02:56 Date of discharge: 06/12/17 Attending physician: JOEL PERKINS 06/08/17 03:15 Consult to Physician [CONS] Routine Consulting Provider: DEL BENJAMIN Reason For Exam: cp Place consult to:: answering service Notified:: yes Phone number called:: [phone] Was contact made?: Yes If yes, spoke with:: Dora Time called:: 08:06 06/09/17 12:33 Consult to Physician [CONS] Routine Consulting Provider: ALONDRA PEREZ Reason For Exam: intractable n/v, ?hematemesis Place consult to:: Dr. Kennedy Perez Notified:: DR. Placido PEREZ Primary care physician: PASTER OPERATOR Hospitalization Reason for admission: hyperkalemia Condition: Stable Hospital course: Patient is a 32 year old AAF with significant for Obesity, CAD, Hypertension, CHF, Lupus and ESRD on hemodialysis (TTS) who came to the emergency room with complaints of shortness of breath. Patient was last dialyzed 6 days ago prior to admission and she missed 2 sessions of hemodialysis since she was out of town. Patient also reported left substernal pain which was sharp, intermittent in nature lasting for less than 5 minutes, intensity 5/10 and without any radiation. Patient denied any nausea, vomiting, dizziness, leg swelling, syncope, confusion, cough or hemodptysis. Patient gets hemdialysis at [facility]. Her potassium was 8 on admission. Patient was seen by cardiology in consultation and ACS was ruled out. Patient was seen by gastroenterology for possible coffee-ground emesis. EGD findings reveal small hiatal hernia, few ulceration body/antrum, duodenitis. GI recommended to discontinue aspirin and resume Plavix in the setting of the findings. Cardiology agreed. Nephrology also saw the patient in consultation and managed her scheduled hemodialysis. Hyperkalemia resolved. Nephrology, gastroenterology and cardiology felt the patient could be discharged and follow-up as an outpatient. Dedicated discharge time 35 minutes. Patient was stressed the need for medical compliance including hemodialysis.. Disposition: DC- TO HOME OR SELFCARE Time spent for discharge: 35 - Discharge Diagnoses (1) Accelerated hypertension Status: Acute (2) Chest pain Status: Acute Qualifiers: Chest pain type: other chest pain Ischemic chest pain type: I Qualified Code(s): R07.89 - Other chest pain; R07.8 - Other chest pain Comment: atypical (3) Gastric ulcer Status: Acute Qualifiers: Gastric ulcer chronicity: G Gastric ulcer complication status: G (4) Hyperkalemia Status: Acute (5) ESRD (end stage renal disease) on dialysis Status: Chronic (6) Elevated troponin Status: Chronic (7) Hyperlipidemia Status: Chronic Qualifiers: Hyperlipidemia type: H (8) Hypertension Status: Chronic Qualifiers: Hypertension type: unspecified Qualified Code(s): I10 - Essential (primary ) hypertension (9) Lupus Status: Chronic Qualifiers: Systemic lupus erythematosus type: S Systemic lupus erythematosus organ involvement: S (10) Medical non-compliance Status: Chronic (11) GERD without esophagitis Status: Acute (12) Nausea & vomiting Status: Acute Qualifiers: Vomiting type: V Vomiting Intractability: V (13) ESRD needing dialysis Status: Chronic Core Measure Documentation - Palliative Care Palliative Care/ Comfort Measures: Not Applicable - Core Measures Any of the following diagnoses?: none Exam - Constitutional Vitals: Temp Pulse Resp BP Pulse Ox 98.3 F 93 H 18 150/87 97 06/12/17 10:25 06/12/17 12:30 06/12/17 10:25 06/12/17 12:30 06/12/17 08:25 General appearance: Present: no acute distress, well-nourished - EENT Eyes: Present: PERRL ENT: hearing intact, clear oral mucosa - Neck Neck: Present: supple, normal ROM - Respiratory Respiratory effort: normal Respiratory: bilateral: CTA - Cardiovascular Heart Sounds: Present: S1 & S2. Absent: rub, click - Extremities Extremities: pulses symmetrical, No edema Peripheral Pulses: within normal limits - Abdominal General gastrointestinal: Present: soft, non-tender, non-distended, normal bowel sounds Female genitourinary: Present: normal - Integumentary Integumentary: Present: clear, warm, dry - Musculoskeletal Musculoskeletal: gait normal, strength equal bilaterally - Psychiatric Psychiatric: appropriate mood/affect, intact judgment & insight - Neurologic Neurologic: CNII-XII intact, moves all extremities Plan Activity: no restrictions Weight Bearing Status: Full Weight Bearing Diet: renal Additional Instructions: NO ASA Follow up with: NEIL CLARK MD [Primary Care Provider] - 3-5 Days YSABEL OWUSU MD [Staff Physician] - 7 Days CHI MÁRQUEZ MD [Staff Physician] - 7 Days ALONDRA PEREZ MD [Staff Physician] - 7 Days Prescriptions: oxyCODONE /ACETAMINOPHEN [Percocet 5/325 mg] 1 tab PO QHS PRN #7 tablet PRN Reason: Pain Pantoprazole [Protonix TAB] 40 mg PO QDAY #30 tablet
[2017-06-12 14:15] VITALS: BP 136/88
--- NOTE | 2017-06-12 15:00 | Query- Chest Pain ---
Gilda Villalta Date:___06/12/2017 Daniel/CDS:____Shweta Phone#:___[phone] Exercise your independent professional judgment when responding to query. Questions asked do not imply a particular answer is desired or expected. We greatly appreciate your clarification on this issue. Clinical Documentation States: 32 Year old female was admitted on 06/08/2017. The Discharge summary states "Patient also reported left substernal pain which was sharp, intermittent in nature lasting for less than 5 minutes, intensity 5/ 10 and without any radiation. (2) Chest pain Status: Acute Qualifiers: Chest pain type: other chest pain Ischemic chest pain type: I Qualified Code(s): R07.89 - Other chest pain; R07.8 - Other chest pain Comment: atypical." Please document the etiology of Chest Pain: [ ] Myocardial Infarction [ ] Pneumonia [ ] Mediastinitis [ ] Costochondritis [ ] Pulmonary Embolism [ ] Coronary Artery Disease [x ] GERD [ ] Other: [ ] Comment/Explanation: Present on Admission: [ x] Yes (Y) [ ] Clinically undeterminable (W) [ ] No(N) Please document response in your Progress Notes and/or Discharge Summary and indicate if the condition was present on admission. DIANA
[2017-06-13] MEDS ORDERED: PROTONIX PO SCH (10:00)
--- NOTE | 2017-06-15 09:19 | Query- GI Bleeding ---
Gilda Melissa_Nato Date:___06/15/2017 Phys Assistant/CDS:____Esther/Shweta Phone#:___[phone] Exercise your independent professional judgment when responding to query. Questions asked do not imply a particular answer is desired or expected. We greatly appreciate your clarification on this issue. Clinical Documentation States: 32 Year old female was admitted on 06/08/2017. The Discharge summary states "Patient was seen by gastroenterology for possible coffee-ground emesis. EGD findings reveal small hiatal hernia, few ulceration body/antrum, duodenitis. (3) Gastric ulcer Status: Acute Qualifiers: Gastric ulcer chronicity: G Gastric ulcer complication status: G (11) GERD without esophagitis Status: Acute (12) Nausea & vomiting Status: Acute Qualifiers: Vomiting type: V Vomiting Intractability: V." Please clarify the Acuity and Etiology of the condition along with associated Anemia as applicable: A. Acuity: [ ] Acute [ ] Acute on Chronic [ ] Chronic B. Etiology - upper GI tract: [ ] Erosive Esophagitis [ ] Angioma [x ] Gastric ulcer [ ] Keren- Palmer tear [ ] Gastric Cancer [ ] Varices [ ] Gastritis: [ ] A.V. Malformations [ ] Acute [ ] Alcoholic [ ] Atrophic [ ] Gastric or duodenal erosions [ ] Unable to determine [ ] Duodenal ulcer [ ] Other: C. Etiology - Lower GI tract 3 [ ] Diverticular disease [ ] Internal hemorrhoids [ ] A.V. Malformations [ ] Colonic polyps [ ] Anal fissures [ ] Ulcerative Proctitis/colitis [ ] Colonic Cancer [ ] Chrons disease [ ] Infectious colitis [ ] Angiodysplasia [ ] Radiation colitis [ ] Aortoenteric fistula [ ] Ischemic colitis [ ] Angioma [ ] Other: [ ] Volvulus [ ] Unable to determine D. Further specify any associated anemia: [ ] Acute [ x] Acute on Chronic [ ] Chronic [ ] Comment/ Explanation: Present on Admission: [ x] Yes (Y) [ ] Clinically undeterminable (W) [ ] No (N) Please also document response in your Progress Notes and/or Discharge Summary and indicate if the condition was present on admission. MTDD
== END 2017-06-12 15:15 | disposition home or self-care (01) | DRG 377 ==
LOC: ED 21:43 → 4A 06-08 02:56 → 3A 06-08 15:28
PROVIDERS: ADMIT Internal Medicine; ATTEND Hospitalist
PROC: 5A1D60Z (ICD-10-PCS; 2017-06-08)
PROC: 0DB68ZX Excision of Stomach, Via Natural or Artificial Opening Endoscopic, Diagnostic (ICD-10-PCS; principal; 2017-06-10)
DX: K25.0 Acute gastric ulcer with hemorrhage (principal); N18.6 End stage renal disease; K21.9 Gastro-esophageal reflux disease without esophagitis; E87.70 Fluid overload, unspecified; E87.5 Hyperkalemia; M32.9 Systemic lupus erythematosus, unspecified; E87.2 Acidosis; E78.1 Pure hyperglyceridemia; I34.0 Nonrheumatic mitral (valve) insufficiency; I35.1 Nonrheumatic aortic (valve) insufficiency; I95.9 Hypotension, unspecified; D64.9 Anemia, unspecified; K29.80 Duodenitis without bleeding; E66.9 Obesity, unspecified; I25.110 Atherosclerotic heart disease of native coronary artery with unstable angina pectoris; E78.5 Hyperlipidemia, unspecified; K44.9 Diaphragmatic hernia without obstruction or gangrene; I50.9 Heart failure, unspecified; I13.2 Hypertensive heart and chronic kidney disease with heart failure and with stage 5 chronic kidney disease, or end stage renal disease; M19.90 Unspecified osteoarthritis, unspecified site; Z96.643 Presence of artificial hip joint, bilateral; Z99.2 Dependence on renal dialysis; Z79.899 Other long term (current) drug therapy; Z88.6 Allergy status to analgesic agent; Z88.8 Allergy status to other drugs, medicaments and biological substances; I25.2 Old myocardial infarction; Z95.5 Presence of coronary angioplasty implant and graft; Z90.49 Acquired absence of other specified parts of digestive tract; Z79.82 Long term (current) use of aspirin; Z79.02 Long term (current) use of antithrombotics/antiplatelets; Z82.49 Family history of ischemic heart disease and other diseases of the circulatory system; Z83.3 Family history of diabetes mellitus; Z91.19 Patient's noncompliance with other medical treatment and regimen; Z68.33 Body mass index [BMI] 33.0-33.9, adult
CPT/HCPCS: 36415; 71020; 80048; 80053; 80061; 82550; 82553; 83690; 84132; 84484; 84703; 85025; 85027; 88305; 88342; 93005; 93010; 93306; 94640; A9270-GY; J0360; J0610; J1170; J1200; J1815; J2405; J2704; J3010; J7030

== ENCOUNTER 2018-03-12 16:31 | Emergency (ER) | payer MEDICAID ==
[2018-03-12 16:38] VITALS: BP 137/93
[2018-03-12 16:59] LABS: Hematocrit 34.8 % (30.3-42.9); Hemoglobin 11.4 gm/dl (10.1-14.3); Mean Corpuscular HGB Conc 33 % (30-34); Mean Corpuscular Hemoglobin 30 pg (28-32); Mean Corpuscular Volume 93 fl (79-97); Platelet Count 398 K/mm3 (140-440); Red Blood Count 3.74 M/mm3 (3.65-5.03); Red Cell Distribution Width 15.6 % (13.2-15.2)
[2018-03-12 17:06] LABS: Calcium 9.7 mg/dL (8.4-10.2)
--- NOTE | 2018-03-12 18:08 | XRay Report ---
FINAL REPORT EXAM: XR CHEST ROUTINE 2V HISTORY: persistant cough TECHNIQUE: PA and lateral views of the chest PRIORS: CXR 01/12/2018 FINDINGS: Lines, tubes, and devices: N/A Lungs and pleura: Trachea is normal in position. Lungs are clear of infiltrate, pleural effusion, vascular congestion, or pneumothorax. No change. Cardiomediastinal silhouette: Cardiac and mediastinal silhouettes are unremarkable. Other: Bony structures are intact. IMPRESSION: No acute cardiopulmonary process seen. No change.
--- NOTE | 2018-03-12 18:31 | Emergency Department Report ---
- General Chief Complaint: Upper Respiratory Infection Stated Complaint: SHORTNESS OF BREATH Time Seen by Provider: 03/12/18 18:17 Source: patient Mode of arrival: Wheelchair Limitations: No Limitations - History of Present Illness Initial Comments: Patient is a 32-year-old female who is presenting with cough, congestion for approximately 3 weeks. Patient states that she's had a productive cough yellow sputum with some tightness in the chest and shortness of breath. Patient states she was on 3 days antibiotics about a week ago which didn't help her symptoms. Patient denies any nausea vomiting or abdominal pain current fever and sore throat headache at this time. - Related Data Home Medications Medication Instructions Recorded Confirmed Last Taken predniSONE [Deltasone] 10 mg PO QAM 09/23/15 07/19/17 1 Day Ago ~07/18/17 Previous Rx's Medication Instructions Recorded Last Taken Type Clopidogrel [Plavix] 75 mg PO DAILY #30 tablet 06/24/15 1 Day Ago Rx ~09/25/16 Sevelamer HCl [Renagel] 800 mg PO TIDWM #30 tablet 06/24/15 1 Day Ago Rx ~07/18/17 Carvedilol [Coreg] 25 mg PO BID #60 tablet 07/29/15 1 Day Ago Rx ~07/18/17 Hydroxychloroquine [Plaquenil] 200 mg PO QDAY tablet 07/29/15 1 Day Ago Rx ~07/18/17 cloNIDine [Catapres] 0.3 mg PO TID 30 Days tablet 07/29/15 1 Day Ago Rx ~07/18/17 Famotidine [Pepcid] 20 mg PO BID #60 tablet 09/26/16 1 Day Ago Rx ~07/18/17 AtorvaSTATin [Lipitor] 40 mg PO QHS #30 tablet 11/18/16 1 Day Ago Rx ~07/18/17 Pantoprazole [Protonix TAB] 40 mg PO QDAY #30 tablet 06/12/17 1 Day Ago Rx ~07/18/17 oxyCODONE /ACETAMINOPHEN [Percocet 1 tab PO Q4H PRN #15 tablet 01/14/18 Unknown Rx 5/325 mg] ALBUTEROL Inhaler [ProAir HFA 2 puff IH QID PRN #1 inhalation 03/12/18 Unknown Rx Inhaler] Doxycycline [Vibramycin CAP] 100 mg PO Q12HR #14 capsule 03/12/18 Unknown Rx predniSONE [Deltasone] 20 mg PO QDAY #5 tab 03/12/18 Unknown Rx Allergies Allergy/AdvReac Type Severity Reaction Status Date / Time hydrocodone bitartrate Allergy Itching Verified 07/18/17 21:41 [From Vicodin] tramadol Allergy Hives Verified 07/18/17 21:41 metoclopramide HCl AdvReac Unknown Verified 07/18/17 21:41 [From Reglan] ED Review of Systems ROS: Stated complaint: SHORTNESS OF BREATH Other details as noted in HPI Comment: All other systems reviewed and negative ED Past Medical Hx - Past Medical History Hx Hypertension: Yes (EF NORMAL) Hx Heart Attack/AMI: Yes Hx Congestive Heart Failure: Yes Hx Diabetes: No Hx Liver Disease: No Hx Renal Disease: Yes (hemodialysis ) Hx Sickle Cell Disease: ( ) Hx Arthritis: Yes Hx Seizures: No Hx Asthma: No Hx COPD: No Hx HIV: No Additional medical history: Lupus - Surgical History Hx Coronary Stent: Yes (2011 x1) Hx Cholecystectomy: Yes Additional Surgical History: bilat total hips, right av fistula, - Social History Smoking Status: Never Smoker Substance Use Type: None - Medications Home Medications: Home Medications Medication Instructions Recorded Confirmed Last Taken Type Clopidogrel [Plavix] 75 mg PO DAILY #30 tablet 06/24/15 07/19/17 1 Day Ago Rx ~09/25/16 Sevelamer HCl [Renagel] 800 mg PO TIDWM #30 tablet 06/24/15 07/19/17 1 Day Ago Rx ~07/18/17 Carvedilol [Coreg] 25 mg PO BID #60 tablet 07/29/15 07/19/17 1 Day Ago Rx ~07/18/17 Hydroxychloroquine [Plaquenil] 200 mg PO QDAY tablet 07/29/15 07/19/17 1 Day Ago Rx ~07/18/17 cloNIDine [Catapres] 0.3 mg PO TID 30 Days tablet 07/29/15 07/19/17 1 Day Ago Rx ~07/18/17 predniSONE [Deltasone] 10 mg PO QAM 09/23/15 07/19/17 1 Day Ago History ~07/18/17 Famotidine [Pepcid] 20 mg PO BID #60 tablet 09/26/16 07/19/17 1 Day Ago Rx ~07/18/17 AtorvaSTATin [Lipitor] 40 mg PO QHS #30 tablet 11/18/16 07/19/17 1 Day Ago Rx ~07/18/17 Pantoprazole [Protonix TAB] 40 mg PO QDAY #30 tablet 06/12/17 07/19/17 1 Day Ago Rx ~07/18/17 oxyCODONE /ACETAMINOPHEN [Percocet 1 tab PO Q4H PRN #15 tablet 01/14/18 Unknown Rx 5/325 mg] ALBUTEROL Inhaler [ProAir HFA 2 puff IH QID PRN #1 inhalation 03/12/18 Unknown Rx Inhaler] Doxycycline [Vibramycin CAP] 100 mg PO Q12HR #14 capsule 03/12/18 Unknown Rx predniSONE [Deltasone] 20 mg PO QDAY #5 tab 03/12/18 Unknown Rx ED Physical Exam - General Limitations: No Limitations General appearance: alert, in no apparent distress - Head Head exam: Present: atraumatic, normocephalic - Eye Eye exam: Present: normal appearance - ENT ENT exam: Present: mucous membranes moist - Neck Neck exam: Present: normal inspection - Respiratory Respiratory exam: Present: normal lung sounds bilaterally. Absent: respiratory distress - Cardiovascular Cardiovascular Exam: Present: regular rate, normal rhythm. Absent: systolic murmur, diastolic murmur, rubs, gallop - GI/Abdominal GI/Abdominal exam: Present: soft, normal bowel sounds - Extremities Exam Extremities exam: Present: normal inspection - Back Exam Back exam: Present: normal inspection - Neurological Exam Neurological exam: Present: alert, oriented X3 - Psychiatric Psychiatric exam: Present: normal affect, normal mood - Skin Skin exam: Present: warm, dry, intact, normal color. Absent: rash ED Course Vital Signs 03/12/18 16:34 Temperature 98.7 F Pulse Rate 105 H Respiratory 18 Rate Blood Pressure 137/93 O2 Sat by Pulse 98 Oximetry ED Medical Decision Making - Lab Data Result diagrams: 03/12/18 16:41 03/12/18 16:41 - Radiology Data Chest x-ray shows no acute process Critical care attestation.: If time is entered above; I have spent that time in minutes in the direct care of this critically ill patient, excluding procedure time. ED Disposition Clinical Impression: Acute bronchitis Qualifiers: Bronchitis organism: unspecified organism Qualified Code(s): J20.9 - Acute bronchitis, unspecified Disposition: DC-01 TO HOME OR SELFCARE Is pt being admited?: No Does the pt Need Aspirin: No Condition: Stable Instructions: Acute Bronchitis (ED)
== END 2018-03-12 18:49 | disposition home or self-care (01) ==
LOC: ED 16:31
DX: J20.9 Acute bronchitis, unspecified (principal); I11.0 Hypertensive heart disease with heart failure; I50.9 Heart failure, unspecified; I25.2 Old myocardial infarction; Z88.6 Allergy status to analgesic agent; Z88.8 Allergy status to other drugs, medicaments and biological substances
CPT/HCPCS: 36415; 71046; 80048; 85027; 99283

== ENCOUNTER 2018-04-08 20:57 | Inpatient (IN) | payer MEDICAID ==
[2018-04-08] MEDS ORDERED: ASPIRIN PO ONE (22:01)
[2018-04-08 22:19] LABS: Basophils # (Auto) 0.1 K/mm3 (0.0-0.1); Basophils % (Auto) 1.3 % (0.0-1.8); Eosinophils % (Auto) 0.1 % (0.0-4.3); Hematocrit 34.4 % (30.3-42.9); Lymphocytes # (Auto) 1.5 K/mm3 (1.2-5.4); Lymphocytes % (Auto) 22.3 % (13.4-35.0); Mean Corpuscular HGB Conc 32 % (30-34); Mean Corpuscular Hemoglobin 30 pg (28-32); Mean Corpuscular Volume 95 fl (79-97); Monocytes # (Auto) 0.4 K/mm3 (0.0-0.8); Monocytes % (Auto) 5.7 % (0.0-7.3); Platelet Count 257 K/mm3 (140-440); Red Blood Count 3.64 M/mm3 (3.65-5.03); Red Cell Distribution Width 16.3 % (13.2-15.2)
[2018-04-08 22:50] LABS: Calcium 9.5 mg/dL (8.4-10.2)
[2018-04-08 23:12] LABS: Chol/HDL Ratio 4.44 %
[2018-04-08] MEDS ORDERED: PROVENTIL IH ONE ×2 (23:14→23:27)
[2018-04-08] MEDS ORDERED: NACL 0.9% 100 ML IV PRN (23:37)
--- NOTE | 2018-04-08 23:37 | Emergency Department Report ---
ED General Adult HPI - General Chief complaint: Chest Pain Stated complaint: CHEST PAIN,BILATERAL LEG PAIN Time Seen by Provider: 04/08/18 23:17 Source: patient Mode of arrival: Ambulatory Limitations: No Limitations - History of Present Illness Initial comments: 33-year-old ESRD patient, 3 times weekly dialysis, Sunday, presents with onset progressive over the day of generalized weakness, difficulty walking, and anterior chest pain. She has no difficulty breathing. She's got some nausea, but has not been vomiting. Lab work performed during triage shows patient has critical hyperkalemia with potassium of 8.9, patient was brought back for emergent treatment and stabilization. She's not had any fever chills or diaphoresis, has been following her diet, Eats and drinking normally, still makes urine, but has not been having any urinary difficulty. Has no cough or congestion, no shortness of breath. - Related Data Home Medications Medication Instructions Recorded Confirmed Last Taken predniSONE [Deltasone] 10 mg PO QAM 09/23/15 07/19/17 1 Day Ago ~07/18/17 Previous Rx's Medication Instructions Recorded Last Taken Type Clopidogrel [Plavix] 75 mg PO DAILY #30 tablet 06/24/15 1 Day Ago Rx ~09/25/16 Sevelamer HCl [Renagel] 800 mg PO TIDWM #30 tablet 06/24/15 1 Day Ago Rx ~07/18/17 Carvedilol [Coreg] 25 mg PO BID #60 tablet 07/29/15 1 Day Ago Rx ~07/18/17 Hydroxychloroquine [Plaquenil] 200 mg PO QDAY tablet 07/29/15 1 Day Ago Rx ~07/18/17 cloNIDine [Catapres] 0.3 mg PO TID 30 Days tablet 07/29/15 1 Day Ago Rx ~07/18/17 Famotidine [Pepcid] 20 mg PO BID #60 tablet 09/26/16 1 Day Ago Rx ~07/18/17 AtorvaSTATin [Lipitor] 40 mg PO QHS #30 tablet 11/18/16 1 Day Ago Rx ~07/18/17 Pantoprazole [Protonix TAB] 40 mg PO QDAY #30 tablet 06/12/17 1 Day Ago Rx ~07/18/17 oxyCODONE /ACETAMINOPHEN [Percocet 1 tab PO Q4H PRN #15 tablet 01/14/18 Unknown Rx 5/325 mg] ALBUTEROL Inhaler [ProAir HFA 2 puff IH QID PRN #1 inhalation 03/12/18 Unknown Rx Inhaler] Doxycycline [Vibramycin CAP] 100 mg PO Q12HR #14 capsule 03/12/18 Unknown Rx predniSONE [Deltasone] 20 mg PO QDAY #5 tab 03/12/18 Unknown Rx Allergies Allergy/AdvReac Type Severity Reaction Status Date / Time hydrocodone bitartrate Allergy Itching Verified 07/18/17 21:41 [From Vicodin] tramadol Allergy Hives Verified 07/18/17 21:41 metoclopramide HCl AdvReac Unknown Verified 07/18/17 21:41 [From Reglan] ED Review of Systems ROS: Stated complaint: CHEST PAIN,BILATERAL LEG PAIN Other details as noted in HPI Comment: All other systems reviewed and negative Constitutional: malaise. denies: chills, diaphoresis, fever ENT: denies: ear pain, throat pain Respiratory: denies: cough, shortness of breath, wheezing Cardiovascular: chest pain (central anterior left chest wall). denies: palpitations, edema, syncope Endocrine: no symptoms reported Gastrointestinal: nausea. denies: abdominal pain, vomiting Skin: denies: rash, lesions Neurological: denies: headache, weakness, paresthesias Psychiatric: denies: anxiety, depression Hematological/Lymphatic: denies: easy bleeding, easy bruising ED Past Medical Hx - Past Medical History Previous Medical History?: Yes Hx Hypertension: Yes (EF NORMAL) Hx Heart Attack/AMI: Yes Hx Congestive Heart Failure: Yes Hx Diabetes: No Hx Liver Disease: No Hx Renal Disease: Yes (hemodialysis -) Hx Sickle Cell Disease: ( ) Hx Arthritis: Yes Hx Seizures: No Hx Asthma: No Hx COPD: No Hx HIV: No Additional medical history: Lupus - Surgical History Past Surgical History?: Yes Hx Coronary Stent: Yes (2011 x1) Hx Cholecystectomy: Yes Additional Surgical History: bilat total hips, right av fistula, - Social History Smoking Status: Never Smoker - Medications Home Medications: Home Medications Medication Instructions Recorded Confirmed Last Taken Type Clopidogrel [Plavix] 75 mg PO DAILY #30 tablet 06/24/15 07/19/17 1 Day Ago Rx ~09/25/16 Sevelamer HCl [Renagel] 800 mg PO TIDWM #30 tablet 06/24/15 07/19/17 1 Day Ago Rx ~07/18/17 Carvedilol [Coreg] 25 mg PO BID #60 tablet 07/29/15 07/19/17 1 Day Ago Rx ~07/18/17 Hydroxychloroquine [Plaquenil] 200 mg PO QDAY tablet 07/29/15 07/19/17 1 Day Ago Rx ~07/18/17 cloNIDine [Catapres] 0.3 mg PO TID 30 Days tablet 07/29/15 07/19/17 1 Day Ago Rx ~07/18/17 predniSONE [Deltasone] 10 mg PO QAM 09/23/15 07/19/17 1 Day Ago History ~07/18/17 Famotidine [Pepcid] 20 mg PO BID #60 tablet 09/26/16 07/19/17 1 Day Ago Rx ~07/18/17 AtorvaSTATin [Lipitor] 40 mg PO QHS #30 tablet 11/18/16 07/19/17 1 Day Ago Rx ~07/18/17 Pantoprazole [Protonix TAB] 40 mg PO QDAY #30 tablet 06/12/17 07/19/17 1 Day Ago Rx ~07/18/17 oxyCODONE /ACETAMINOPHEN [Percocet 1 tab PO Q4H PRN #15 tablet 01/14/18 Unknown Rx 5/325 mg] ALBUTEROL Inhaler [ProAir HFA 2 puff IH QID PRN #1 inhalation 03/12/18 Unknown Rx Inhaler] Doxycycline [Vibramycin CAP] 100 mg PO Q12HR #14 capsule 03/12/18 Unknown Rx predniSONE [Deltasone] 20 mg PO QDAY #5 tab 03/12/18 Unknown Rx ED Physical Exam - General Limitations: No Limitations General appearance: alert, in distress - Head Head exam: Present: atraumatic - Eye Eye exam: Present: PERRL, EOMI - ENT ENT exam: Present: normal exam, mucous membranes moist - Neck Neck exam: Present: normal inspection. Absent: tenderness - Respiratory Respiratory exam: Present: normal lung sounds bilaterally. Absent: wheezes, rales, rhonchi - Cardiovascular Cardiovascular Exam: Present: regular rate, normal heart sounds - GI/Abdominal GI/Abdominal exam: Present: soft, normal bowel sounds. Absent: tenderness, guarding - Rectal Rectal exam: Present: deferred - Extremities Exam Extremities exam: Present: normal inspection (AV shunt site right arm, poor venous access generally) - Back Exam Back exam: Present: normal inspection - Neurological Exam Neurological exam: Present: alert, oriented X3, CN II-XII intact. Absent: motor sensory deficit - Psychiatric Psychiatric exam: Present: flat affect - Skin Skin exam: Present: warm, dry ED Course Vital Signs 04/08/18 04/08/18 21:58 23:31 Temperature 99.2 F Pulse Rate 92 H Pulse Rate [ 80 Left Middle Lobe] Respiratory 20 Rate Respiratory 18 Rate [Left Middle Lobe] Blood Pressure 170/105 O2 Sat by Pulse 100 Oximetry - Consultations Consultation #1: 04/08/18 23:39 Licensed Home Inspector, Dr. Long, contacted for emergent dialysis, and he accepts patient, for arrangements for dialysis, recommends patient be admitted to ICU, and admission through hospitalist. Consultation #2: 04/08/18 23:40 Dr. Uribe, on-call hospitalist, notified of patient's diagnosis and condition, discussed treatment with hyperkalemia protocol, which will be performed as soon as adequate IV access couldn't be established on this difficult patient. Patient is currently stable - EJ/Peripheral Line Neck R Time Out Performed: Yes Indications: nurses unable to establis Skin Cleansed in Sterile Fashion: Yes Size: 18 Dressing Placed: tape Patient Tolerated Procedure: well Additional Comments: Ultrasound assisted ED Medical Decision Making - Lab Data Result diagrams: 04/08/18 22:05 04/08/18 22:05 - EKG Data -: EKG Interpreted by Me EKG shows normal: sinus rhythm, axis (borderline left axis deviation at -29,), intervals (normal CT interval, normal QRS interval, borderline QT interval at 453 ms corrected), QRS complexes ( normal QRS width, QRS axis -29, no ectopy), ST-T waves (there is mild peaking of T waves in the anterior limb leads and the lateral precordial leads, but this is only minimally changed from prior tracing of January 2018.) Rate: normal - Medical Decision Making This end-stage renal dialysis patient has a critical hyperkalemia, and requires emergency dialysis. She is currently stable, EKG shows no signs of cardiac deterioration, with stable QRS morphology, and only early hint of T-wave elevation. Patient will need intensive care admission, and aggressive hyperkalemic treatment, which is pending adequate IV access. Critical Care Time: Yes Critical care attestation.: If time is entered above; I have spent that time in minutes in the direct care of this critically ill patient, excluding procedure time. Critical Care Time: 30 minutes of critical care time was provided and stabilizing in treating this patient with life-threatening hyperkalemia in the presence of end-stage renal disease. ED Disposition Clinical Impression: Acute hyperkalemia Condition: Stable
--- NOTE | 2018-04-08 23:42 | History and Physical Report ---
History of Present Illness Date of examination: 04/08/18 History of present illness: 33-year-old woman with a history of CAD, hypertension, CHF, hypertension, lupus , end-stage renal disease on dialysis, Sunday, and Sunday came to the emergency room with complaints of shortness of breath and chest pain. Pain is in the left substernal area which she describes as a sharp pain, intermittent in nature lasting for a few seconds, intensity 5/10, no radiatiion , and she cannot identify exacerbating or relieving factors. She admits to nausea, vomiting, shortness of breath, no diaphoresis or palpitation. Old records reviewed showed she had a stress test in July 2017. Review of systems Constitutional: no fever, no chills, no weight loss Ears, eyes, nose, mouth and throat: no nasal congestion, no nasal discharge, no sinus pressure, no vision change, no red eye. Neck: No neck pain or rigidity. Cardiovascular: no orthopnea, palpitations, no leg swelling Respiratory: No cough, no congestion, no wheezing Gastrointestinal: abdominal pain, hematochezia Genitourinary : no dysuria, frequency , no hematuria Musculoskeletal: no joint swelling or muscle ache Integumentary: no rash, no pruritis Neurological: no parathesias, no numbness, no focal weakness Endocrine: no cold or heat intolerance, no polyuria or polydipsia Hematologic/Lymphatic: no easy bruising, no easy bleeding, no gland swelling Allergic/Immunologic: no urticaria, no angioedema. PAST MEDICAL HISTORY: CAD, hypertension, CHF, hypertension, lupus, end-stage renal disease on dialysis PAST SURGICAL HISTORY: AV fistula, hip replacement 3, cholecystectomy, hernia repair, SOCIAL HISTORY: Denies alcohol, tobacco, drugs FAMILY HISTORY: Hypertension, diabetes Medications and Allergies Allergies Allergy/AdvReac Type Severity Reaction Status Date / Time hydrocodone bitartrate Allergy Itching Verified 07/18/17 21:41 [From Vicodin] tramadol Allergy Hives Verified 07/18/17 21:41 metoclopramide HCl AdvReac Unknown Verified 07/18/17 21:41 [From Reglan] Home Medications Medication Instructions Recorded Confirmed Last Taken Type Clopidogrel [Plavix] 75 mg PO DAILY #30 tablet 06/24/15 07/19/17 1 Day Ago Rx ~09/25/16 Sevelamer HCl [Renagel] 800 mg PO TIDWM #30 tablet 06/24/15 07/19/17 1 Day Ago Rx ~07/18/17 Carvedilol [Coreg] 25 mg PO BID #60 tablet 07/29/15 07/19/17 1 Day Ago Rx ~07/18/17 Hydroxychloroquine [Plaquenil] 200 mg PO QDAY tablet 07/29/15 07/19/17 1 Day Ago Rx ~07/18/17 cloNIDine [Catapres] 0.3 mg PO TID 30 Days tablet 07/29/15 07/19/17 1 Day Ago Rx ~07/18/17 predniSONE [Deltasone] 10 mg PO QAM 09/23/15 07/19/17 1 Day Ago History ~07/18/17 Famotidine [Pepcid] 20 mg PO BID #60 tablet 09/26/16 07/19/17 1 Day Ago Rx ~07/18/17 AtorvaSTATin [Lipitor] 40 mg PO QHS #30 tablet 11/18/16 07/19/17 1 Day Ago Rx ~07/18/17 Pantoprazole [Protonix TAB] 40 mg PO QDAY #30 tablet 06/12/17 07/19/17 1 Day Ago Rx ~07/18/17 oxyCODONE /ACETAMINOPHEN [Percocet 1 tab PO Q4H PRN #15 tablet 01/14/18 Unknown Rx 5/325 mg] ALBUTEROL Inhaler [ProAir HFA 2 puff IH QID PRN #1 inhalation 03/12/18 Unknown Rx Inhaler] Doxycycline [Vibramycin CAP] 100 mg PO Q12HR #14 capsule 03/12/18 Unknown Rx predniSONE [Deltasone] 20 mg PO QDAY #5 tab 03/12/18 Unknown Rx Active Meds: Active Medications Sodium Chloride (Nacl 0.9%) 100 mls @ 999 mls/hr IV JOSEPH PRN PRN Reason: Hypotension Exam - Physical Exam Narrative exam: Gen. appearance: Patient lying in bed, no apparent distress HEENT: Normocephalic, atraumatic, pupils equally round and reactive to light, extraocular movement intact, and no sclericterus,. No JVD or thyromegaly or nodule,neck supple, no carotid bruit ,mucous membranes dry, no exudate or erythema Heart: S1, S2, regular rate and rhythm Lungs: Clear to auscultation bilaterally, breathing comfortable Abdomen: Positive bowel sounds, nontender, nondistended, no organomegaly Extremity: No edema, cyanosis, clubbing Skin: No rash, nodules, warm, dry Neuro: Oriented 3, cranial nerves II-12 intact, speech is fluent, motor and sensory intact - Constitutional Vitals: Temp Pulse Resp BP Pulse Ox 99.2 F 80 18 170/105 100 04/08/18 21:58 04/08/18 23:31 04/08/18 23:31 04/08/18 21:58 04/08/18 21:58 Results - Labs CBC & Chem 7: 04/08/18 22:05 04/08/18 22:05 Labs: Abnormal lab results 04/08/18 04/08/18 Range/Units 22:05 22:05 RBC 3.64 L (3.65-5.03) M/mm3 RDW 16.3 H (13.2-15.2) % Seg Neutrophils % 70.6 H (40.0-70.0) % Sodium 135 L (137-145) mmol/L Potassium 8.9 H* (3.6-5.0) mmol/L Chloride 94.9 L (98-107) mmol/L BUN 47 H (7-17) mg/dL Creatinine 10.0 H (0.7-1.2) mg/dL Glucose 115 H (65-100) mg/dL Troponin T 0.061 H (0.00-0.029) ng/mL Cholesterol 222 H (50-199) mg/dL LDL Cholesterol Direct 150 H (50-130) mg/dL - Imaging and Cardiology EKG: image reviewed Assessment and Plan Assessment Severe Hyperkalemia ESRD, need dialysis Chest pain, acute on chronic CAD Hypertension, uncontrolled Lupus CHF, stable Plan Admit to medicine Renal is consulted for emergent dialysis, status post hyperkalemia cocktail Check cardiac enzymes, d-dimer, consult cardiology, critical care Continue appropiate outpatient medications Start dvt prophalaxis
[2018-04-09] MEDS ORDERED: D50W (25GM) Syringe IV ONE (00:04)
[2018-04-09] MEDS ORDERED: HumuLIN R IV ONE (00:04)
[2018-04-09] MEDS ORDERED: CALCIUM CHLORIDE 1,000 MG in NACL 0.9% 100 ML IV ONE (00:05)
[2018-04-09] MEDS ORDERED: ROXICODONE ONE (00:57)
[2018-04-09] MEDS ORDERED: ASPIRIN ONE (00:58)
[2018-04-09] MEDS: ROXICODONE PO ONE ×2 (01:00→01:22)
[2018-04-09] MEDS ORDERED: ZOFRAN IV ONE (01:10)
[2018-04-09] MEDS ORDERED: MORPHINE IV ONE ×2 (01:10→01:23)
[2018-04-09] MEDS ORDERED: MORPHINE ONE (01:12)
[2018-04-09] MEDS ORDERED: ZOFRAN ONE (01:23)
[2018-04-09] MEDS ORDERED: APRESOLINE IV PRN (04:06)
[2018-04-09] MEDS: MORPHINE IV PRN ×4 (04:15→19:56)
[2018-04-09 08:39] LABS: Calcium 9.7 mg/dL (8.4-10.2)
--- NOTE | 2018-04-09 08:45 | Progress Note ---
Assessment and Plan Assessment and plan: Chest pain. D-dimer elevated. Will do V/Q scan to rule out Pulmonary embolism. cardiology following, had neg stress in January 2018 ESRD on hemodialysis. Nephrology following Hyperkalemia. Potassium 8.9 yesterday. Repeat today. Had urgent dialysis overnight. Nephrology following Lupus. Supportive care Coronary artery disease., s/p PCI. Negative stress test in January/2018 Hypertensive urgency. BP improving Obesity. Counseled on diet and exercise. Full code status. History Interval history: Still c/o chest pain No shortness of breath currently Hospitalist Physical - Physical exam Narrative exam: General: Not in acute distress, lying in bed, obese HEENT:Normocephalic, atraumatic Neck:supple,no JVD Lungs: Clear to auscultation bilaterally, no crackles, no wheeze Heart:S1 and S2 regular, no murmurs, rubs or gallop Abd: soft, non tender, non distended, normal bowel sounds Ext: No edema, no clubbing, no cyanosis Neuro: AAO x 3, moves all extremities. - Constitutional Vitals: Temp Pulse Resp BP Pulse Ox 97.5 F L 75 20 125/73 99 04/09/18 08:00 04/09/18 06:40 04/09/18 06:50 04/09/18 06:40 04/09/18 06:50 Results - Labs CBC & Chem 7: 04/08/18 22:05 04/09/18 08:00 Labs: Laboratory Last Values WBC 6.7 K/mm3 (4.5-11.0) 04/08/18 22:05 RBC 3.64 M/mm3 (3.65-5.03) L 04/08/18 22:05 Hgb 11.0 gm/dl (10.1-14.3) 04/08/18 22:05 Hct 34.4 % (30.3-42.9) 04/08/18 22:05 MCV 95 fl (79-97) 04/08/18 22:05 MCH 30 pg (28-32) 04/08/18 22:05 MCHC 32 % (30-34) 04/08/18 22:05 RDW 16.3 % (13.2-15.2) H 04/08/18 22:05 Plt Count 257 K/mm3 (140-440) 04/08/18 22:05 Lymph % (Auto) 22.3 % (13.4-35.0) 04/08/18 22:05 [place] % (Auto) 5.7 % (0.0-7.3) 04/08/18 22:05 Eos % (Auto) 0.1 % (0.0-4.3) 04/08/18 22:05 Baso % (Auto) 1.3 % (0.0-1.8) 04/08/18 22:05 Lymph # 1.5 K/mm3 (1.2-5.4) 04/08/18 22:05 [place] # 0.4 K/mm3 (0.0-0.8) 04/08/18 22:05 Eos # 0.0 K/mm3 (0.0-0.4) 04/08/18 22:05 Baso # 0.1 K/mm3 (0.0-0.1) 04/08/18 22:05 Seg Neutrophils % 70.6 % (40.0-70.0) H 04/08/18 22:05 Seg Neutrophils # 4.7 K/mm3 (1.8-7.7) 04/08/18 22:05 D-Dimer 490.58 ng/mlDDU (0-234) H 04/09/18 04:41 Sodium 140 mmol/L (137-145) 04/09/18 08:00 Potassium 8.9 mmol/L (3.6-5.0) H* 04/08/18 22:05 Chloride 92.6 mmol/L (98-107) L 04/09/18 08:00 Carbon Dioxide 30 mmol/L (22-30) 04/09/18 08:00 Anion Gap 22 mmol/L 04/09/18 08:00 BUN 14 mg/dL (7-17) 04/09/18 08:00 Creatinine 10.0 mg/dL (0.7-1.2) H 04/08/18 22:05 Estimated GFR 13 ml/min 04/09/18 08:00 BUN/Creatinine Ratio 3 % 04/09/18 08:00 Glucose 65 mg/dL (65-100) 04/09/18 08:00 Calcium 9.7 mg/dL (8.4-10.2) 04/09/18 08:00 Troponin T 0.069 ng/mL (0.00-0.029) H 04/09/18 08:00 Triglycerides 137 mg/dL (2-149) 04/08/18 22:05 Cholesterol 222 mg/dL (50-199) H 04/08/18 22:05 LDL Cholesterol Direct 150 mg/dL (50-130) H 04/08/18 22:05 HDL Cholesterol 50 mg/dL (40-59) 04/08/18 22:05 Cholesterol/HDL Ratio 4.44 % 04/08/18 22:05
--- NOTE | 2018-04-09 09:15 | Consultation ---
History of Present Illness Consult date: 04/09/18 Requesting physician: MILAGROS HERNANDEZ Consult reason: chest pain History of present illness: The patient is a 33 year old female with a history of CAD s/p PCI, HTN, ESRD on HD, lupus, recurrent atypical chest pain, and noncompliance. She presented with complaints of SOB and chest pain which started yesterday evening. She describes her chest pain has a nonexertional, nonradiating, left-sided, intermittent, stabbing pain. She denies any palpitations, n/v, diaphoresis, dizziness, or syncope. On admission, her serum potassium was noted to be 8.9. BP at admission was 170/105. She reports compliance with her dialysis and medication regimen. In 06/2014, she underwent cardiac cath and PCI of 90% mid LAD lesion with a STEVEN at [facility]. Repeat cath in 06/2015 showed patent LAD stent and otherwise normal coronaries. Echo done 01/2018 showed EF 55-60%, mod AR, trace MR , milt TR. Lexiscan MPI stress test done 01/2018 was negative for ischemia. Past History Past Medical History: CAD, dialysis, ESRD, hypertension, other (lupus) Social history: denies: smoking, alcohol abuse, prescription drug abuse Medications and Allergies Allergies Allergy/AdvReac Type Severity Reaction Status Date / Time hydrocodone bitartrate Allergy Itching Verified 07/18/17 21:41 [From Vicodin] tramadol Allergy Hives Verified 07/18/17 21:41 metoclopramide HCl AdvReac Unknown Verified 07/18/17 21:41 [From Reglan] Home Medications Medication Instructions Recorded Confirmed Last Taken Type Clopidogrel [Plavix] 75 mg PO DAILY #30 tablet 06/24/15 07/19/17 1 Day Ago Rx ~09/25/16 Sevelamer HCl [Renagel] 800 mg PO TIDWM #30 tablet 06/24/15 07/19/17 1 Day Ago Rx ~07/18/17 Carvedilol [Coreg] 25 mg PO BID #60 tablet 07/29/15 07/19/17 1 Day Ago Rx ~07/18/17 Hydroxychloroquine [Plaquenil] 200 mg PO QDAY tablet 07/29/15 07/19/17 1 Day Ago Rx ~07/18/17 cloNIDine [Catapres] 0.3 mg PO TID 30 Days tablet 07/29/15 07/19/17 1 Day Ago Rx ~07/18/17 predniSONE [Deltasone] 10 mg PO QAM 09/23/15 07/19/17 1 Day Ago History ~07/18/17 Famotidine [Pepcid] 20 mg PO BID #60 tablet 09/26/16 07/19/17 1 Day Ago Rx ~07/18/17 AtorvaSTATin [Lipitor] 40 mg PO QHS #30 tablet 11/18/16 07/19/17 1 Day Ago Rx ~07/18/17 Pantoprazole [Protonix TAB] 40 mg PO QDAY #30 tablet 06/12/17 07/19/17 1 Day Ago Rx ~07/18/17 oxyCODONE /ACETAMINOPHEN [Percocet 1 tab PO Q4H PRN #15 tablet 01/14/18 Unknown Rx 5/325 mg] ALBUTEROL Inhaler [ProAir HFA 2 puff IH QID PRN #1 inhalation 03/12/18 Unknown Rx Inhaler] Doxycycline [Vibramycin CAP] 100 mg PO Q12HR #14 capsule 03/12/18 Unknown Rx predniSONE [Deltasone] 20 mg PO QDAY #5 tab 03/12/18 Unknown Rx Active Meds: Active Medications Atorvastatin Calcium (Lipitor) 40 mg PO QHS [facility] Carvedilol (Coreg) 25 mg PO BID [facility] Clonidine HCl (Catapres) 0.1 mg PO TID [facility] Clonidine HCl (Catapres) 0.2 mg PO TID [facility] Clopidogrel Bisulfate (Plavix) 75 mg PO DAILY [facility] Enoxaparin Sodium (Lovenox) 30 mg SUB-Q QDAY [facility] Famotidine (Pepcid) 20 mg PO QAM [facility] Hydralazine HCl (Apresoline) 5 mg IV Q6H PRN PRN Reason: Hypertension Hydroxychloroquine Sulfate (Plaquenil) 200 mg PO QDAY [facility] Sodium Chloride (Nacl 0.9%) 100 mls @ 999 mls/hr IV JOSEPH PRN PRN Reason: Hypotension Morphine Sulfate (Morphine) 2 mg IV Q4H PRN PRN Reason: Pain, Moderate (4-6) Last Admin: 04/09/18 08:51 Dose: 2 mg Prednisone (Deltasone) 10 mg PO QAM [facility] Sevelamer Carbonate (Renvela) 800 mg PO TIDWM [facility] Review of Systems Constitutional: no weight loss, no weight gain, no fever, no chills, no sweats Ears, nose, mouth and throat: no ear pain, no nose pain, no sinus pressure, no sinus pain Cardiovascular: chest pain, shortness of breath, dyspnea on exertion, no palpitations, no rapid/irregular heart beat, no edema, no syncope, no lightheadedness Respiratory: shortness of breath, dyspnea on exertion, no cough, no congestion, no wheezing, no pain on inspiration Gastrointestinal: no abdominal pain, no nausea, no vomiting, no diarrhea, no constipation, no change in bowel habits Genitourinary Female: no pelvic pain, no flank pain, no dysuria, no urinary frequency, no urgency Musculoskeletal: no neck stiffness, no neck pain, no shooting arm pain, no arm numbness/tingling, no low back pain, no shooting leg pain, no leg numbness/ tingling, no redness of joints Integumentary: no rash, no pruritis, no redness, no sores, no wounds Neurological: no head injury, no paralysis, no weakness, no parathesias, no numbness, no tingling, no seizures, no syncope Psychiatric: no anxiety Endocrine: no cold intolerance, no heat intolerance Hematologic/Lymphatic: no easy bruising, no easy bleeding, no lymphadenopathy Allergic/Immunologic: no urticaria, no wheezing, no persistent infections Physical Examination Vital Signs Temp Pulse Resp BP Pulse Ox 99.2 F 92 H 20 170/105 100 04/08/18 21:58 04/08/18 21:58 04/08/18 21:58 04/08/18 21:58 04/08/18 21:58 General appearance: no acute distress HEENT: Positive: PERRL, Normocephaly, Mucus Membranes Moist Neck: Positive: neck supple, trachea midline Cardiac: Positive: Reg Rate and Rhythm, S1/S2 Lungs: Positive: Decreased Breath Sounds Neuro: Positive: Grossly Intact Abdomen: Positive: Soft. Negative: Tender Skin: Positive: Clear. Negative: Rash, Wound Musculoskeletal: No Fluid Collection, No Pain, Normal Range of Motion Extremities: Absent: edema Results 04/08/18 22:05 04/09/18 08:00 Lipids 04/08/18 Range/Units 22:05 Triglycerides 137 (2-149) mg/dL Cholesterol 222 H (50-199) mg/dL HDL Cholesterol 50 (40-59) mg/dL Cholesterol/HDL Ratio 4.44 % CBC 04/08/18 Range/Units 22:05 WBC 6.7 (4.5-11.0) K/mm3 RBC 3.64 L (3.65-5.03) M/mm3 Hgb 11.0 (10.1-14.3) gm/dl Hct 34.4 (30.3-42.9) % Plt Count 257 (140-440) K/mm3 Lymph # 1.5 (1.2-5.4) K/mm3 [place] # 0.4 (0.0-0.8) K/mm3 Eos # 0.0 (0.0-0.4) K/mm3 Baso # 0.1 (0.0-0.1) K/mm3 Comprehensive Metabolic Panel 04/08/18 04/09/18 Range/Units 22:05 08:00 Sodium 135 L 140 (137-145) mmol/L Potassium 8.9 H* 4.2 D (3.6-5.0) mmol/L Chloride 94.9 L 92.6 L (98-107) mmol/L Carbon Dioxide 25 30 (22-30) mmol/L BUN 47 H 14 (7-17) mg/dL Creatinine 10.0 H 4.6 H D (0.7-1.2) mg/dL Glucose 115 H 65 (65-100) mg/dL Calcium 9.5 9.7 (8.4-10.2) mg/dL - Imaging and Cardiology Echo: report reviewed (01/2018 showed EF 55-60%, mod AR, trace MR, milt TR) Cardiac cath: report reviewed (In 06/2014, she underwent cardiac cath and PCI of 90% mid LAD lesion with a STEVEN at [facility]. Repeat cath in 06/2015 showed patent LAD stent and otherwise normal coronaries. ) EKG: report reviewed, image reviewed EKG interpretations - Telemetry EKG Rhythm: Sinus Rhythm - EKG Sinus rhythms and dysrhythmias: sinus rhythm Assessment and Plan Assessment: Atypical chest pain - recurrent CAD - s/p PCI of mid LAD 06/2014; [facility] 06/2015: patent LAD stent, otherwise normal coronaries Elevated troponin - minimally elevated, flat; nonspecific in setting of ESRD ESRD, on HD Hyperkalemia - improved Accelerated Hypertension - improving Hyperlipidemia Lupus Plan: Given recent negative lexiscan MPI stress test done in 01/2018 in setting of recurrent, atypical chest pain with ECG with NAF and flat S[place]eta, will proceed with medical management at this time. BP optimization and HD per nephrology. Assessment and plan reviewed with pt at bedside. The patient has been seen in conjunction with Dr. Contreras who agrees with the assessment and plan of care.
--- NOTE | 2018-04-09 09:45 | Consultation ---
History of Present Illness - Reason for Consult Consult date: 04/09/18 Emergent HD for hyperkalemia, Hypertensive Urgency Requesting physician: ADELITA KIDD - History of Present Illness 33 y/o female, multiple medical issues and multiple admission in the past admitted with chest pain. Found to have hyperkalemia, requiring Emergent HD and hypertensive Emergency. Patient dialyzed yesterday. Currently still with mild chest pain. BP now normal. Awake and alert. Past History Past Medical History: CAD, dialysis, ESRD, hypertension, other (lupus) Social history: denies: smoking, alcohol abuse, prescription drug abuse Medications and Allergies Allergies Allergy/AdvReac Type Severity Reaction Status Date / Time hydrocodone bitartrate Allergy Itching Verified 07/18/17 21:41 [From Vicodin] tramadol Allergy Hives Verified 07/18/17 21:41 metoclopramide HCl AdvReac Unknown Verified 07/18/17 21:41 [From Reglan] Home Medications Medication Instructions Recorded Confirmed Last Taken Type Clopidogrel [Plavix] 75 mg PO DAILY #30 tablet 06/24/15 07/19/17 1 Day Ago Rx ~09/25/16 Sevelamer HCl [Renagel] 800 mg PO TIDWM #30 tablet 06/24/15 07/19/17 1 Day Ago Rx ~07/18/17 Carvedilol [Coreg] 25 mg PO BID #60 tablet 07/29/15 07/19/17 1 Day Ago Rx ~07/18/17 Hydroxychloroquine [Plaquenil] 200 mg PO QDAY tablet 07/29/15 07/19/17 1 Day Ago Rx ~07/18/17 cloNIDine [Catapres] 0.3 mg PO TID 30 Days tablet 07/29/15 07/19/17 1 Day Ago Rx ~07/18/17 predniSONE [Deltasone] 10 mg PO QAM 09/23/15 07/19/17 1 Day Ago History ~07/18/17 Famotidine [Pepcid] 20 mg PO BID #60 tablet 09/26/16 07/19/17 1 Day Ago Rx ~07/18/17 AtorvaSTATin [Lipitor] 40 mg PO QHS #30 tablet 11/18/16 07/19/17 1 Day Ago Rx ~07/18/17 Pantoprazole [Protonix TAB] 40 mg PO QDAY #30 tablet 06/12/17 07/19/17 1 Day Ago Rx ~07/18/17 oxyCODONE /ACETAMINOPHEN [Percocet 1 tab PO Q4H PRN #15 tablet 01/14/18 Unknown Rx 5/325 mg] ALBUTEROL Inhaler [ProAir HFA 2 puff IH QID PRN #1 inhalation 03/12/18 Unknown Rx Inhaler] Doxycycline [Vibramycin CAP] 100 mg PO Q12HR #14 capsule 03/12/18 Unknown Rx predniSONE [Deltasone] 20 mg PO QDAY #5 tab 03/12/18 Unknown Rx Active Meds: Active Medications Atorvastatin Calcium (Lipitor) 40 mg PO QHS [facility] Carvedilol (Coreg) 25 mg PO BID [facility] Clonidine HCl (Catapres) 0.1 mg PO TID [facility] Clonidine HCl (Catapres) 0.2 mg PO TID [facility] Clopidogrel Bisulfate (Plavix) 75 mg PO DAILY [facility] Enoxaparin Sodium (Lovenox) 30 mg SUB-Q QDAY [facility] Famotidine (Pepcid) 20 mg PO QAM [facility] Hydralazine HCl (Apresoline) 5 mg IV Q6H PRN PRN Reason: Hypertension Hydroxychloroquine Sulfate (Plaquenil) 200 mg PO QDAY [facility] Sodium Chloride (Nacl 0.9%) 100 mls @ 999 mls/hr IV JOSEPH PRN PRN Reason: Hypotension Morphine Sulfate (Morphine) 2 mg IV Q4H PRN PRN Reason: Pain, Moderate (4-6) Last Admin: 04/09/18 08:51 Dose: 2 mg Prednisone (Deltasone) 10 mg PO QAM [facility] Sevelamer Carbonate (Renvela) 800 mg PO TIDWM [facility] Review of Systems All systems: negative Exam - Constitutional Vitals: Temp Pulse Resp BP Pulse Ox 97.5 F L 75 20 125/73 99 04/09/18 08:00 04/09/18 06:40 04/09/18 06:50 04/09/18 06:40 04/09/18 06:50 General appearance: Present: no acute distress, well-nourished, obese - EENT Eyes: Present: PERRL, EOM intact ENT: hearing intact - Neck Neck: Present: supple, normal ROM - Respiratory Respiratory effort: normal Respiratory: bilateral: CTA - Cardiovascular Rhythm: regular Heart Sounds: Present: S1 & S2 - Extremities Extremities: no ischemia - Abdominal General gastrointestinal: Present: soft, non-tender, normal bowel sounds Female genitourinary: Present: deferred - Rectal Rectal Exam: deferred - Musculoskeletal Musculoskeletal: strength equal bilaterally Results - Labs CBC & Chem 7: 04/08/18 22:05 04/09/18 08:00 Labs: Abnormal lab results 04/08/18 04/08/18 04/09/18 Range/Units 22:05 22:05 04:41 RBC 3.64 L (3.65-5.03) M/mm3 RDW 16.3 H (13.2-15.2) % Seg Neutrophils % 70.6 H (40.0-70.0) % D-Dimer (0-234) ng/mlDDU Sodium 135 L (137-145) mmol/L Potassium 8.9 H* (3.6-5.0) mmol/L Chloride 94.9 L (98-107) mmol/L BUN 47 H (7-17) mg/dL Creatinine 10.0 H (0.7-1.2) mg/dL Glucose 115 H (65-100) mg/dL Troponin T 0.061 H 0.068 H (0.00-0.029) ng/mL Cholesterol 222 H (50-199) mg/dL LDL Cholesterol Direct 150 H (50-130) mg/dL 04/09/18 04/09/18 04/09/18 Range/Units 04:41 08:00 08:00 RBC (3.65-5.03) M/mm3 RDW (13.2-15.2) % Seg Neutrophils % (40.0-70.0) % D-Dimer 490.58 H (0-234) ng/mlDDU Sodium (137-145) mmol/L Potassium (3.6-5.0) mmol/L Chloride 92.6 L (98-107) mmol/L BUN (7-17) mg/dL Creatinine 4.6 H D (0.7-1.2) mg/dL Glucose (65-100) mg/dL Troponin T 0.069 H (0.00-0.029) ng/mL Cholesterol (50-199) mg/dL LDL Cholesterol Direct (50-130) mg/dL Assessment and Plan 33 y/o with hyperkalemia and hypertensive Urgency 1. Stable after HD with normal BP and Normal K levels 2. Transfer to floor 3. Spoke with [facility] and they agree 4. Will sign off.
[2018-04-09] MEDS ORDERED: PROTONIX PO SCH (10:00)
[2018-04-09] MEDS: LOVENOX SUB-Q SCH (11:24)
[2018-04-09] MEDS: PLAQUENIL PO SCH (11:25)
[2018-04-09] MEDS: CATAPRES PO SCH ×8 (11:25→21:46)
[2018-04-09] MEDS: RENVELA PO SCH ×2 (11:25→19:46)
[2018-04-09] MEDS: PEPCID PO SCH (11:25)
[2018-04-09] MEDS: PLAVIX PO SCH (11:25)
[2018-04-09] MEDS: COREG PO SCH (11:26)
[2018-04-09] MEDS: DELTASONE PO SCH (11:26)
--- NOTE | 2018-04-09 13:11 | Consultation ---
History of Present Illness - Reason for Consult Consult date: 04/09/18 end stage renal disease Requesting physician: MILAGROS HERNANDEZ - History of Present Illness 33-year-old woman with a history of CAD, hypertension, CHF, hypertension, lupus , end-stage renal disease on dialysis, Sunday, and Sunday came to the emergency room with complaints of shortness of breath and chest pain. Pain is in the left substernal area which she describes as a sharp pain, intermittent in nature lasting for a few seconds, intensity 5/10, no radiatiion , and she cannot identify exacerbating or relieving factors. She admits to nausea, vomiting, shortness of breath, no diaphoresis or palpitation. Old records reviewed showed she had a stress test in July 2017. Review of systems Constitutional: no fever, no chills, no weight loss Ears, eyes, nose, mouth and throat: no nasal congestion, no nasal discharge, no sinus pressure, no vision change, no red eye. Neck: No neck pain or rigidity. Cardiovascular: no orthopnea, palpitations, no leg swelling Respiratory: No cough, no congestion, no wheezing Gastrointestinal: abdominal pain, hematochezia Genitourinary : no dysuria, frequency , no hematuria Musculoskeletal: no joint swelling or muscle ache Integumentary: no rash, no pruritis Neurological: no parathesias, no numbness, no focal weakness Endocrine: no cold or heat intolerance, no polyuria or polydipsia Hematologic/Lymphatic: no easy bruising, no easy bleeding, no gland swelling Allergic/Immunologic: no urticaria, no angioedema. PAST MEDICAL HISTORY: CAD, hypertension, CHF, hypertension, lupus, end-stage renal disease on dialysis PAST SURGICAL HISTORY: AV fistula, hip replacement 3, cholecystectomy, hernia repair, SOCIAL HISTORY: Denies alcohol, tobacco, drugs FAMILY HISTORY: Hypertension, diabetes Past History Past Medical History: CAD, dialysis, ESRD, hypertension, other (lupus) Social history: denies: smoking, alcohol abuse, prescription drug abuse Medications and Allergies Allergies Allergy/AdvReac Type Severity Reaction Status Date / Time hydrocodone bitartrate Allergy Itching Verified 07/18/17 21:41 [From Vicodin] tramadol Allergy Hives Verified 07/18/17 21:41 metoclopramide HCl AdvReac Unknown Verified 07/18/17 21:41 [From Reglan] Home Medications Medication Instructions Recorded Confirmed Last Taken Type Clopidogrel [Plavix] 75 mg PO DAILY #30 tablet 06/24/15 07/19/17 1 Day Ago Rx ~09/25/16 Sevelamer HCl [Renagel] 800 mg PO TIDWM #30 tablet 06/24/15 07/19/17 1 Day Ago Rx ~07/18/17 Carvedilol [Coreg] 25 mg PO BID #60 tablet 07/29/15 07/19/17 1 Day Ago Rx ~07/18/17 Hydroxychloroquine [Plaquenil] 200 mg PO QDAY tablet 07/29/15 07/19/17 1 Day Ago Rx ~07/18/17 cloNIDine [Catapres] 0.3 mg PO TID 30 Days tablet 07/29/15 07/19/17 1 Day Ago Rx ~07/18/17 predniSONE [Deltasone] 10 mg PO QAM 09/23/15 07/19/17 1 Day Ago History ~07/18/17 Famotidine [Pepcid] 20 mg PO BID #60 tablet 09/26/16 07/19/17 1 Day Ago Rx ~07/18/17 AtorvaSTATin [Lipitor] 40 mg PO QHS #30 tablet 11/18/16 07/19/17 1 Day Ago Rx ~07/18/17 Pantoprazole [Protonix TAB] 40 mg PO QDAY #30 tablet 06/12/17 07/19/17 1 Day Ago Rx ~07/18/17 oxyCODONE /ACETAMINOPHEN [Percocet 1 tab PO Q4H PRN #15 tablet 01/14/18 Unknown Rx 5/325 mg] ALBUTEROL Inhaler [ProAir HFA 2 puff IH QID PRN #1 inhalation 03/12/18 Unknown Rx Inhaler] Doxycycline [Vibramycin CAP] 100 mg PO Q12HR #14 capsule 03/12/18 Unknown Rx predniSONE [Deltasone] 20 mg PO QDAY #5 tab 03/12/18 Unknown Rx Active Meds: Active Medications Atorvastatin Calcium (Lipitor) 40 mg PO QHS [facility] Carvedilol (Coreg) 25 mg PO BID [facility] Last Admin: 04/09/18 11:26 Dose: 25 mg Clonidine HCl (Catapres) 0.1 mg PO TID [facility] Last Admin: 04/09/18 11:27 Dose: Not Given Clonidine HCl (Catapres) 0.2 mg PO TID [facility] Last Admin: 04/09/18 11:28 Dose: Not Given Clopidogrel Bisulfate (Plavix) 75 mg PO DAILY [facility] Last Admin: 04/09/18 11:25 Dose: 75 mg Enoxaparin Sodium (Lovenox) 30 mg SUB-Q QDAY [facility] Last Admin: 04/09/18 11:24 Dose: 30 mg Famotidine (Pepcid) 20 mg PO QAM [facility] Last Admin: 04/09/18 11:25 Dose: 20 mg Hydralazine HCl (Apresoline) 5 mg IV Q6H PRN PRN Reason: Hypertension Hydroxychloroquine Sulfate (Plaquenil) 200 mg PO QDAY [facility] Last Admin: 04/09/18 11:25 Dose: 200 mg Sodium Chloride (Nacl 0.9%) 100 mls @ 999 mls/hr IV JOSEPH PRN PRN Reason: Hypotension Morphine Sulfate (Morphine) 2 mg IV Q4H PRN PRN Reason: Pain, Moderate (4-6) Last Admin: 04/09/18 08:51 Dose: 2 mg Prednisone (Deltasone) [facility] Last Admin: 04/09/18 11:26 Dose: 10 mg Sevelamer Carbonate (Renvela) 800 [facility] Last Admin: 04/09/18 11:25 Dose: 800 mg Exam - Vital Signs Vital signs: Vital Signs Temp Pulse Resp BP Pulse Ox 99.2 F 92 H 20 170/105 100 04/08/18 21:58 04/08/18 21:58 04/08/18 21:58 04/08/18 21:58 04/08/18 21:58 - Physical Exam Narrative exam: Gen. appearance: Patient lying in bed, no apparent distress HEENT: Normocephalic, atraumatic, pupils equally round and reactive to light, extraocular movement intact, and no sclericterus,. No JVD or thyromegaly or nodule,neck supple, no carotid bruit ,mucous membranes dry, no exudate or erythema Heart: S1, S2, regular rate and rhythm Lungs: Clear to auscultation bilaterally, breathing comfortable Abdomen: Positive bowel sounds, nontender, nondistended, no organomegaly Extremity: No edema, cyanosis, clubbing Skin: No rash, nodules, warm, dry Neuro: Oriented 3, cranial nerves II-12 intact, speech is fluent, motor and sensory intact Results - Lab Results 04/08/18 22:05 04/09/18 08:00 Most recent lab results Calcium 9.7 mg/dL (8.4-10.2) 04/09/18 08:00 Assessment and Plan Assessment * Severe Hyperkalemia * ESRD * CAD * Hypertension, uncontrolled * Lupus * CHF, stable Plan: * stat hd and q MWF as tolerated * advised on compliance with hd * strict i/os * daily lytes * renal diet * UF as tolerated with HD
--- NOTE | 2018-04-09 13:23 | Nuclear Medicine Report ---
LUNG SCAN, VENTILATION AND PERFUSION: History: chest pain. Technique: 5mci of Tc99m MAA was infused for the perfusion images. 15mci XE 133 gas was inhaled for the ventilatory images. Findings: Inhalation of Xenon gas demonstrates a normal distribution of the activity throughout both lungs. The wash out phases show no focal retention of activity. After injection of Technetium 99m macroaggregated albumin gamma camera imaging of the lungs in multiple projections demonstrates normal pulmonary contours with a homogeneous distribution of activity. No focal areas of perfusion deficiency are identified. IMPRESSION: Low probability for pulmonary embolus.
[2018-04-10] MEDS: MORPHINE IV PRN ×3 (00:33→10:35)
[2018-04-10] MEDS: COREG PO SCH ×2 (00:33→10:38)
[2018-04-10 09:43] VITALS: BP 108/70
--- NOTE | 2018-04-10 10:24 | Progress Note ---
Subjective Interval history: Patient was seen today for follow-up on multiple renal related issues Patient denies any complaints, cough, chest pain, pressure, shortness of breath Events over 24 hours vitals, labs, intake and output. Medications were reviewed Allergies: Reviewed Past medical history: Reviewed Social history: Reviewed Family history: Reviewed Current medications: Reviewed Physical examination Vitals: Reviewed Gen.: No acute distress, alert HEENT: Oral mucosa moist. No icterus Neck: Supple, no JVD Chest: Clear to auscultation anteriorly and posteriorly. No wheezes Heart: Regular rate and rhythm, S1, S2 heard, no S3, S4 Abdomen: Soft, nontender. No renal bruit. No CVA tenderness. No suprapubic fullness Extremity: Dry skin, less than 1+ edema Skin: Dry skin. No purpuric rash Assessment and plan End-stage renal disease: Patient admitted and dialyzed for severe hyperkalemia. Had a long discussion with patient counseled and educated that she should modify her diet, lifestyle and be involved in her care. I have educated her at length. She does not seem to be happy to hear about the consequences of life- threatening hyperkalemia, including , but she has to make a plan to get better She is stable from renal standpoint for discharge today to follow up with her dialysis clinic tomorrow Her labs are satisfactory at this time. I have educated her at length about end -stage renal disease, diet that she needs to follow on complying She needs to avoid nonsteroidal drugs. She should not be given any form of CYNDI inhibitor or angiotensin receptor diaz Compliance: Very poor Risk of mortality: High. Patient remains noncompliant Must follow up with her clinical services professional upon discharge All related issues were discussed with patient and simple Lithuanian, patient does exhibit good understanding of kidney related problems Labs were explained and simple Lithuanian We'll continue to follow and make recommendation from renal standpoint Objective - Vital Signs Vital signs: Vital Signs - 12hr 04/09/18 04/09/18 04/09/18 22:28 22:48 22:54 Temperature Pulse Rate Respiratory Rate Blood Pressure 153/102 153/102 153/102 O2 Sat by Pulse 87 Oximetry 04/09/18 04/09/18 04/09/18 23:08 23:37 23:48 Temperature 97.6 F Pulse Rate 81 Respiratory 20 Rate Blood Pressure 153/102 153/102 131/85 O2 Sat by Pulse 99 97 Oximetry 04/10/18 04/10/18 04/10/18 00:33 01:35 04:33 Temperature Pulse Rate 82 Respiratory 18 Rate Blood Pressure 135/93 153/102 153/102 O2 Sat by Pulse 77 L Oximetry 04/10/18 04/10/18 04/10/18 04:40 04:50 04:56 Temperature Pulse Rate Respiratory 18 Rate Blood Pressure 153/102 153/102 O2 Sat by Pulse 76 L 71 L Oximetry 04/10/18 04/10/18 04/10/18 05:00 06:06 09:36 Temperature 97.7 F Pulse Rate 79 76 Respiratory 20 18 Rate Blood Pressure 153/102 117/74 108/70 O2 Sat by Pulse 77 L 96 99 Oximetry - Lab 04/08/18 22:05 04/09/18 08:00 Most recent lab results Calcium 9.7 mg/dL (8.4-10.2) 04/09/18 08:00
[2018-04-10] MEDS: RENVELA PO SCH (10:34)
[2018-04-10] MEDS: DELTASONE PO SCH (10:34)
[2018-04-10] MEDS: PLAQUENIL PO SCH (10:34)
[2018-04-10] MEDS: CATAPRES PO SCH ×2 (10:34→10:35)
[2018-04-10] MEDS: PLAVIX PO SCH (10:34)
[2018-04-10] MEDS: PEPCID PO SCH (10:34)
[2018-04-10] MEDS: LOVENOX SUB-Q SCH (10:35)
--- NOTE | 2018-04-10 11:22 | Discharge Summary ---
Providers - Providers Date of Admission: 04/08/18 23:41 Date of discharge: 04/10/18 Attending physician: ADELITA KIDD 04/08/18 23:50 Consult to Physician [CONS] Stat Comment: Consulting Provider: CAMMIE CORONEL Physician Instructions: Reason For Exam: hyperkalemia, ESRD 04/09/18 03:44 Consult to Physician [CONS] Routine Comment: Consulting Provider: MARIO FENG Physician Instructions: Reason For Exam: cp Primary care physician: BLACK LEATHER TRIMMER Hospitalization Condition: Fair Disposition: DC-01 TO HOME OR SELFCARE Core Measure Documentation - Palliative Care Palliative Care/ Comfort Measures: Not Applicable - Core Measures Any of the following diagnoses?: none Exam - Constitutional Vitals: Temp Pulse Resp BP Pulse Ox 97.7 F 76 18 108/70 99 04/10/18 06:06 04/10/18 09:36 04/10/18 09:36 04/10/18 09:36 04/10/18 09:36 Plan Activity: advance as tolerated Diet: low fat, low cholesterol, low salt, renal Additional Instructions: 1.Follow up with PCP or [facility] in 1 week. 2.Follow up with routine hemodialysis as scheduled. 3.Follow up with Olimpia Barrera [facility],in 1-2 weeks Follow up with: PRIMARY CAREMD [Primary Care Provider] - 7 Days
--- NOTE | 2018-04-10 11:39 | Progress Note ---
Assessment and Plan Assessment: Atypical chest pain - recurrent CAD - s/p PCI of mid LAD 06/2014; [facility] 06/2015: patent LAD stent, otherwise normal coronaries Elevated troponin - minimally elevated, flat; nonspecific in setting of ESRD ESRD, on HD Hyperkalemia - improved Accelerated Hypertension - improving Hyperlipidemia Lupus Plan: Currently stable cardiac status. Pt may discharge home from cardiology standpoint. Recommend follow up in our office with Olimpia Barrera NP, within 1-2 weeks of hospital discharge ([phone]). Assessment and plan reviewed with pt at bedside. The patient has been seen in conjunction with Dr. Contreras who agrees with the assessment and plan of care. Subjective Date of service: 04/10/18 Principal diagnosis: HTN; cp Interval history: pt resting comfortably in bed, no current cardiac complaints. Objective Last Vital Signs Temp 97.7 F 04/10/18 06:06 Pulse 76 04/10/18 09:36 Resp 18 04/10/18 09:36 BP 108/70 04/10/18 09:36 Pulse Ox 99 04/10/18 09:36 - Physical Examination General: No Apparent Distress HEENT: Positive: PERRL, Normocephaly, Mucus Membranes Moist Neck: Positive: neck supple, trachea midline Cardiac: Positive: Reg Rate and Rhythm, S1/S2 Lungs: Positive: clear to auscultation Neuro: Positive: Grossly Intact Abdomen: Positive: Soft. Negative: Tender Skin: Positive: Clear. Negative: Rash, Wound Musculoskeletal: No Fluid Collection, No Pain, Normal Range of Motion Extremities: Absent: edema - Imaging and Cardiology EKG: report reviewed, image reviewed Echo: report reviewed (01/2018 showed EF 55-60%, mod AR, trace MR, milt TR) Cardiac cath: report reviewed (In 06/2014, she underwent cardiac cath and PCI of 90% mid LAD lesion with a STEVEN at [facility]. Repeat cath in 06/2015 showed patent LAD stent and otherwise normal coronaries. ) - Telemetry EKG Rhythm: Sinus Rhythm - EKG Sinus rhythms and dysrhythmias: sinus rhythm
== END 2018-04-10 01:50 | disposition home or self-care (01) | DRG 291 ==
LOC: ED 20:57 → CC1 23:41 → 4A 04-09 23:09
PROVIDERS: ADMIT Internal Medicine; ATTEND Internal Medicine
PROC: 5A1D70Z Performance of Urinary Filtration, Intermittent, Less than 6 Hours Per Day (ICD-10-PCS; principal; 2018-04-09)
DX: I13.2 Hypertensive heart and chronic kidney disease with heart failure and with stage 5 chronic kidney disease, or end stage renal disease (principal); N18.6 End stage renal disease; E87.5 Hyperkalemia; I50.9 Heart failure, unspecified; M19.90 Unspecified osteoarthritis, unspecified site; I25.10 Atherosclerotic heart disease of native coronary artery without angina pectoris; E78.5 Hyperlipidemia, unspecified; R07.89 Other chest pain; Z91.14 Patient's other noncompliance with medication regimen; Z96.649 Presence of unspecified artificial hip joint; I16.0 Hypertensive urgency; E66.9 Obesity, unspecified; Z68.31 Body mass index [BMI] 31.0-31.9, adult; Z90.49 Acquired absence of other specified parts of digestive tract; Z88.8 Allergy status to other drugs, medicaments and biological substances; Z88.5 Allergy status to narcotic agent; I25.2 Old myocardial infarction; Z83.3 Family history of diabetes mellitus; Z82.49 Family history of ischemic heart disease and other diseases of the circulatory system; Z71.3 Dietary counseling and surveillance; Z99.2 Dependence on renal dialysis; Z79.899 Other long term (current) drug therapy
CPT/HCPCS: 36415; 71045; 78582; 80048; 80061; 84484; 85025; 85379; 93005; 93010; A9270-GY; A9540; A9558; J1650; J1815; J2270; J2405; J7512

== ENCOUNTER 2019-03-22 15:36 | Inpatient (IN) | payer MEDICAID ==
[2019-03-22] MEDS ORDERED: ASPIRIN PO ONE (15:59)
--- NOTE | 2019-03-22 16:45 | XRay Report ---
PROCEDURE: Chest. TECHNIQUE: Single frontal view. HISTORY: Chest pain. COMPARISONS: None. FINDINGS: The heart size is normal. There is moderate tortuosity of the thoracic aorta. The lungs are clear and well expanded. There are no pleural effusions. The soft tissues are unremarkable. There is osteoarth ritis involving both shoulder joints. IMPRESSION: No evidence of acute cardiopulmonary disease. This document is electronically signed by Elton Woods MD., Mar 22 2019 04:43:12 PM ET
[2019-03-22 16:51] LABS: Basophils # (Auto) 0.1 K/mm3 (0.0-0.1); Basophils % (Auto) 0.7 % (0.0-1.8); Eosinophils # (Auto) 0.1 K/mm3 (0.0-0.4); Eosinophils % (Auto) 0.8 % (0.0-4.3); Hematocrit 37.6 % (30.3-42.9); Hemoglobin 12.7 gm/dl (10.1-14.3); Lymphocytes # (Auto) 1.3 K/mm3 (1.2-5.4); Lymphocytes % (Auto) 16.6 % (13.4-35.0); Mean Corpuscular HGB Conc 34 % (30-34); Mean Corpuscular Volume 98 fl (79-97); Monocytes # (Auto) 0.4 K/mm3 (0.0-0.8); Monocytes % (Auto) 5.4 % (0.0-7.3); Platelet Count 259 K/mm3 (140-440); Red Blood Count 3.83 M/mm3 (3.65-5.03); Red Cell Distribution Width 16.9 % (13.2-15.2)
[2019-03-22 17:12] LABS: BUN/Creatinine Ratio 4; Blood Urea Nitrogen 63 mg/dL (7-17); Calcium 9.4 mg/dL (8.4-10.2); Hemolysis Index 21
[2019-03-22] MEDS ORDERED: HumuLIN R IV ONE (17:30)
[2019-03-22] MEDS ORDERED: D50W (25GM) Syringe IV ONE ×2 (17:30→18:42)
[2019-03-22] MEDS ORDERED: PROVENTIL IH ONE (17:30)
--- NOTE | 2019-03-22 17:39 | Emergency Department Report ---
ED General Adult HPI - General Chief complaint: Chest Pain Stated complaint: CHEST PAIN/SOB/BACK PAIN Time Seen by Provider: 03/22/19 17:29 Source: patient, family Mode of arrival: Ambulatory Limitations: No Limitations - History of Present Illness Initial comments: Patient is 33 years old female with history of end stage renal disease on hemodialysis. Patient get dialysis at [facility]. Patient stated that she went to dialysis today and because of the chest pain they advised her to come to the ER. Patient is complaining of shortness of breath. Patient described her chest pain as pressure, substernal was no radiation. Patient denied missing any dialysis. No fever or cough. Patient use the right arm fistula for dialysis. - Related Data Home Medications Medication Instructions Recorded Confirmed Last Taken predniSONE [Deltasone] 7 mg PO QDAY 12/17/18 12/17/18 Unknown Previous Rx's Medication Instructions Recorded Last Taken Type Sevelamer HCl [Renagel] 800 mg PO TIDWM #30 tablet 06/24/15 1 Day Ago Rx ~07/18/17 Carvedilol [Coreg] 25 mg PO BID #60 tablet 07/29/15 1 Day Ago Rx ~07/18/17 Allergies Allergy/AdvReac Type Severity Reaction Status Date / Time hydrocodone bitartrate Allergy Itching Verified 03/22/19 15:37 [From Vicodin] tramadol Allergy Hives Verified 03/22/19 15:37 metoclopramide HCl AdvReac Unknown Verified 03/22/19 15:37 [From Reglan] ED Review of Systems ROS: Stated complaint: CHEST PAIN/SOB/BACK PAIN Other details as noted in HPI Comment: All other systems reviewed and negative Constitutional: denies: chills, fever Respiratory: shortness of breath. denies: cough Cardiovascular: chest pain Gastrointestinal: denies: abdominal pain, nausea, vomiting Neurological: denies: headache, weakness, numbness, paresthesias, confusion ED Past Medical Hx - Past Medical History Hx Hypertension: Yes (EF NORMAL) Hx Heart Attack/AMI: Yes Hx Congestive Heart Failure: Yes Hx Diabetes: No Hx Liver Disease: No Hx Renal Disease: Yes (hemodialysis -) Hx Sickle Cell Disease: ( ) Hx Arthritis: Yes Hx Seizures: No Hx Asthma: No Hx COPD: No Hx HIV: No Additional medical history: Lupus - Surgical History Hx Coronary Stent: Yes (2011 x1) Hx Cholecystectomy: Yes Additional Surgical History: bilat total hips, right av fistula, - Social History Smoking Status: Never Smoker Substance Use Type: None - Medications Home Medications: Home Medications Medication Instructions Recorded Confirmed Last Taken Type Sevelamer HCl [Renagel] 800 mg PO TIDWM #30 tablet 06/24/15 12/17/18 1 Day Ago Rx ~07/18/17 Carvedilol [Coreg] 25 mg PO BID #60 tablet 07/29/15 12/17/18 1 Day Ago Rx ~07/18/17 predniSONE [Deltasone] 7 mg PO QDAY 12/17/18 12/17/18 Unknown History ED Physical Exam - General Limitations: No Limitations General appearance: alert, in no apparent distress - Head Head exam: Present: atraumatic, normocephalic, normal inspection - Eye Eye exam: Present: normal appearance, PERRL - ENT ENT exam: Present: normal exam, normal orophraynx, mucous membranes moist - Neck Neck exam: Present: normal inspection, full ROM. Absent: tenderness, m eningismus, lymphadenopathy, thyromegaly - Respiratory Respiratory exam: Present: normal lung sounds bilaterally. Absent: respiratory distress, wheezes, rales, rhonchi, chest wall tenderness, accessory muscle use, decreased breath sounds, prolonged expiratory - Cardiovascular Cardiovascular Exam: Present: regular rate, normal rhythm, normal heart sounds - GI/Abdominal GI/Abdominal exam: Present: soft, normal bowel sounds. Absent: distended, tenderness, guarding, rebound, rigid, organomegaly, mass, bruit, pulsatile mass, hernia - Extremities Exam Extremities exam: Present: normal inspection, full ROM, normal capillary refill - Back Exam Back exam: Present: normal inspection, full ROM. Absent: tenderness, CVA tenderness (R), CVA tenderness (L), muscle spasm, paraspinal tenderness, vertebral tenderness - Neurological Exam Neurological exam: Present: alert, oriented X3, CN II-XII intact, normal gait, reflexes normal - Skin Skin exam: Present: warm, intact, normal color ED Course Vital Signs 03/22/19 15:56 Temperature 98.7 F Pulse Rate 81 Respiratory 18 Rate Blood Pressure 162/110 O2 Sat by Pulse 100 Oximetry ED Medical Decision Making - Lab Data Result diagrams: 03/22/19 16:31 03/22/19 16:31 - EKG Data -: EKG Interpreted by Me EKG shows normal: sinus rhythm Rate: normal - EKG Data Interpretation: no acute changes - Radiology Data Radiology results: report reviewed Chest x-ray is unremarkable. - Medical Decision Making Patient is 33 years old female with history of end stage renal disease on hemodialysis. Patient get dialysis at [facility]. Patient stated that she went to dialysis today and because of the chest pain they advised her to come to the ER. Patient is complaining of shortness of breath. Patient described her chest pain as pressure, substernal was no radiation. Patient denied missing any dialysis. No fever or cough. Patient found to have a potassium of 8.2. Patient received calcium chloride 1 g, and dextrose 50 and insulin 5 units and albuterol. I discussed the patient is Dr. Molina who stated that he is putting dialysis order immediately. I discussed the patient with Dr. dailey, he admitted to the patient's medical service. Critical Care Time: Yes Critical care time in (mins) excluding proc time.: 30 Critical care attestation.: If time is entered above; I have spent that time in minutes in the direct care of this critically ill patient, excluding procedure time. ED Disposition Clinical Impression: ESRD (end stage renal disease), Acute hyperkalemia Disposition: DC-[id number] OP ADMIT IP TO THIS HOSP Is pt being admited?: Yes Condition: Stable Referrals: PRIMARY CARE, [Primary Care Provider] - 3-5 Days
--- NOTE | 2019-03-22 18:00 | Event Note ---
Date: 03/22/19 STAT HD ordered and HD nurse was contacted.
[2019-03-22] MEDS ORDERED: CALCIUM CHLORIDE 1,000 MG in NACL 0.9% 100 ML IV ONE (18:30)
[2019-03-22] MEDS ORDERED: HumuLIN R ONE (18:43)
[2019-03-22] MEDS ORDERED: ZOFRAN IV ONE (19:00)
[2019-03-22] MEDS ORDERED: MORPHINE IM ONE (19:00)
[2019-03-22] MEDS ORDERED: MORPHINE ONE (19:04)
[2019-03-22] MEDS ORDERED: ZOFRAN ONE (19:04)
[2019-03-22] MEDS ORDERED: APRESOLINE IV ONE (19:51)
--- NOTE | 2019-03-22 21:05 | History and Physical Report ---
History of Present Illness Date of examination: 03/22/19 Date of admission: 03/22/19 17:55 Chief complaint: chest pain, left sided weakness History of present illness: Patient is 33 years old female with PMHx of ESRD on HD, LSE, HTN, steroid induced hyperglycemia, who presents to the ER for c/o chest pain x 1 day. Patient stated that she went to dialysis today and was sent to the ER because of chest pain. Patient reports a left substernal chest pain radiating to her arm, pt states that the pain is associated with SOB, she reports lower legs swelling and left leg pain and weakness. Patient reports that she had a CT scan of her leg on February which shows a hematoma Medications and Allergies Allergies Allergy/AdvReac Type Severity Reaction Status Date / Time hydrocodone bitartrate Allergy Itching Verified 03/22/19 15:37 [From Vicodin] tramadol Allergy Hives Verified 03/22/19 15:37 metoclopramide HCl AdvReac Unknown Verified 03/22/19 15:37 [From Reglan] Home Medications Medication Instructions Recorded Confirmed Last Taken Type Sevelamer HCl [Renagel] 800 mg PO TIDWM #30 tablet 06/24/15 12/17/18 1 Day Ago Rx ~07/18/17 Carvedilol [Coreg] 25 mg PO BID #60 tablet 07/29/15 12/17/18 1 Day Ago Rx ~07/18/17 predniSONE [Deltasone] 7 mg PO QDAY 12/17/18 12/17/18 Unknown History Exam - Constitutional Vitals: Temp Pulse Resp BP Pulse Ox 98.7 F 81 18 162/110 100 03/22/19 19:17 03/22/19 19:17 03/22/19 19:17 03/22/19 15:56 03/22/19 19:17 Results - Labs CBC & Chem 7: 03/22/19 16:31 03/22/19 16:31 Labs: Laboratory Last Values WBC 7.8 K/mm3 (4.5-11.0) 03/22/19 16:31 RBC 3.83 M/mm3 (3.65-5.03) 03/22/19 16:31 Hgb 12.7 gm/dl (10.1-14.3) 03/22/19 16:31 Hct 37.6 % (30.3-42.9) 03/22/19 16:31 MCV 98 fl (79-97) H 03/22/19 16:31 MCH 33 pg (28-32) H 03/22/19 16:31 MCHC 34 % (30-34) 03/22/19 16:31 RDW 16.9 % (13.2-15.2) H 03/22/19 16:31 Plt Count 259 K/mm3 (140-440) 03/22/19 16:31 Lymph % (Auto) 16.6 % (13.4-35.0) 03/22/19 16:31 [place] % (Auto) 5.4 % (0.0-7.3) 03/22/19 16:31 Eos % (Auto) 0.8 % (0.0-4.3) 03/22/19 16:31 Baso % (Auto) 0.7 % (0.0-1.8) 03/22/19 16:31 Lymph # 1.3 K/mm3 (1.2-5.4) 03/22/19 16:31 [place] # 0.4 K/mm3 (0.0-0.8) 03/22/19 16:31 Eos # 0.1 K/mm3 (0.0-0.4) 03/22/19 16:31 Baso # 0.1 K/mm3 (0.0-0.1) 03/22/19 16:31 Seg Neutrophils % 76.5 % (40.0-70.0) H 03/22/19 16:31 Seg Neutrophils # 6.0 K/mm3 (1.8-7.7) 03/22/19 16:31 Sodium 135 mmol/L (137-145) L 03/22/19 16:31 Potassium 8.2 mmol/L (3.6-5.0) H* 03/22/19 16:31 Chloride 98.5 mmol/L (98-107) 03/22/19 16:31 Carbon Dioxide 18 mmol/L (22-30) L 03/22/19 16:31 27 mmol/L 03/22/19 16:31 BUN 63 mg/dL (7-17) H 03/22/19 16:31 14.3 mg/dL (0.7-1.2) H 03/22/19 16:31 Estimated GFR 4 ml/min 03/22/19 16:31 4 % 03/22/19 16:31 Glucose 86 mg/dL (65-100) 03/22/19 16:31 Calcium 9.4 mg/dL (8.4-10.2) 03/22/19 16:31 < 0.010 ng/mL (0.00-0.029) 03/22/19 19:13
--- NOTE | 2019-03-22 21:25 | History and Physical Report ---
History of Present Illness Date of examination: 03/22/19 Date of admission: 03/22/19 17:55 History of present illness: 33-year-old woman with a history of CAD, hypertension, CHF, hypertension, lupus, end-stage renal disease on dialysis, Sunday, and Sunday came to the emergency room with complaints of chest pain. The patient arrived at dialysis, her blood pressure was very high, it was 224/147. She states she was given 2 tablets of clonidine without much improvement. She was sent to the hospital for evaluation. Also complain of pain is in the left chest area which she describes as a sharp pain, constant, intensity 5/10, radiating to left arm, she cannot identify exacerbating or relieving factors. She admits to nausea, vomiting, shortness of breath, no diaphoresis or palpitation. Patient had a stress test in January of last year just negative. Also complain that around 11:00 this morning, she started experiencing left leg weakness and numbness Review of systems Constitutional: no fever, no chills, no weight loss Ears, eyes, nose, mouth and throat: no nasal congestion, no nasal discharge, no sinus pressure, no vision change, no red eye. Neck: No neck pain or rigidity. Cardiovascular: no orthopnea, palpitations, no leg swelling Respiratory: No cough, no congestion, no wheezing Gastrointestinal: abdominal pain, hematochezia Genitourinary : no dysuria, frequency , no hematuria Musculoskeletal: no joint swelling or muscle ache Integumentary: no rash, no pruritis Neurological: no parathesias, no numbness, no focal weakness Endocrine: no cold or heat intolerance, no polyuria or polydipsia Hematologic/Lymphatic: no easy bruising, no easy bleeding, no gland swelling Allergic/Immunologic: no urticaria, no angioedema. PAST MEDICAL HISTORY: CAD, hypertension, CHF, hypertension, lupus, end-stage renal disease on dialysis PAST SURGICAL HISTORY: AV fistula, hip replacement 3, cholecystectomy, hernia repair, SOCIAL HISTORY: Denies alcohol, tobacco, drugs FAMILY HISTORY: Hypertension, diabetes Medications and Allergies Allergies Allergy/AdvReac Type Severity Reaction Status Date / Time hydrocodone bitartrate Allergy Itching Verified 03/22/19 15:37 [From Vicodin] tramadol Allergy Hives Verified 03/22/19 15:37 metoclopramide HCl AdvReac Unknown Verified 03/22/19 15:37 [From Reglan] Home Medications Medication Instructions Recorded Confirmed Last Taken Type Sevelamer HCl [Renagel] 800 mg PO TIDWM #30 tablet 06/24/15 12/17/18 1 Day Ago Rx ~07/18/17 Carvedilol [Coreg] 25 mg PO BID #60 tablet 07/29/15 12/17/18 1 Day Ago Rx ~07/18/17 predniSONE [Deltasone] 7 mg PO QDAY 12/17/18 12/17/18 Unknown History Exam - Physical Exam Narrative exam: Gen. appearance: Patient lying in bed, no apparent distress HEENT: Normocephalic, atraumatic, pupils equally round and reactive to light, extraocular movement intact, and no sclericterus,. No JVD or thyromegaly or nodule,neck supple, no carotid bruit ,mucous membranes dry, no exudate or erythema Heart: S1, S2, regular rate and rhythm Lungs: Clear to auscultation bilaterally, breathing comfortable Abdomen: Positive bowel sounds, nontender, nondistended, no organomegaly Extremity: No edema, cyanosis, clubbing Skin: No rash, nodules, warm, dry Neuro: Oriented 3, cranial nerves II-12 intact, speech is fluent, motor-LLE 3/5 sensory intact - Constitutional Vitals: Temp Pulse Resp BP Pulse Ox 98.7 F 81 18 162/110 100 03/22/19 19:17 03/22/19 19:17 03/22/19 19:17 03/22/19 15:56 03/22/19 19:17 Results - Labs CBC & Chem 7: 03/22/19 16:31 03/22/19 16:31 Labs: Abnormal lab results 03/22/19 03/22/19 Range/Units 16:31 16:31 MCV 98 H (79-97) fl MCH 33 H (28-32) pg RDW 16.9 H (13.2-15.2) % Seg Neutrophils % 76.5 H (40.0-70.0) % Sodium 135 L (137-145) mmol/L Potassium 8.2 H* (3.6-5.0) mmol/L Carbon Dioxide 18 L (22-30) mmol/L BUN 63 H (7-17) mg/dL Creatinine 14.3 H (0.7-1.2) mg/dL Assessment and Plan Assessment Severe Hyperkalemia left leg weakness, r/o CVA Chest pain, acute on chronic ESRD, need dialysis CAD Hypertension, uncontrolled Lupus CHF, stable Plan Admit to medicine Renal is consulted for emergent dialysis, status post hyperkalemia cocktail Check cardiac enzymes, consult cardiology Continue appropiate outpatient medications Start dvt prophalaxis
[2019-03-22] MEDS ORDERED: DULCOLAX PR PRN (22:05)
[2019-03-22] MEDS ORDERED: ZOFRAN IV PRN (22:05)
[2019-03-22] MEDS ORDERED: MILK OF MAGNESIA PO PRN (22:05)
[2019-03-22] MEDS ORDERED: APRESOLINE IV PRN (23:08)
[2019-03-23 00:31] LABS: Creatine Kinase MB 1.3 ng/mL (0.0-4.0)
--- NOTE | 2019-03-23 00:41 | Cat Scan Report ---
PROCEDURE: CT HEAD/BRAIN WO CON TECHNIQUE: Computerized tomography of the head was performed without contrast material. CT DOSE LENGTH PRODUCT: 920.5 mGycm HISTORY: stroke FINDINGS: Unenhanced CT of the brain was performed and demonstrates no acute intracranial hemorrhage, extra-axial fluid collection, midline shift or mass effect. The ventricles and basal cisterns are no t effaced. No acute infarct is seen. MRI may be considered if patient has persistent altered mental status. The mastoid air cells and middle ears appear clear. There is no evidence of acute sinusitis. IMPRESSION: No acute intracranial hemorrhage This document is electronically signed by Pranay Stearns MD., Mar 23 2019 12:39:48 AM ET
[2019-03-23] MEDS ORDERED: NACL 0.9 (PRIMING MACHINE ONLY DIALYSIS) MC ONE ×2 (00:50→21:39)
[2019-03-23] MEDS: MORPHINE IV PRN ×3 (01:12→09:45)
[2019-03-23] MEDS ORDERED: KIONEX PO ONE (07:45)
[2019-03-23 08:30] LABS: Basophils # (Auto) 0.1 K/mm3 (0.0-0.1); Basophils % (Auto) 1.2 % (0.0-1.8); Eosinophils # (Auto) 0.1 K/mm3 (0.0-0.4); Eosinophils % (Auto) 1.3 % (0.0-4.3); Hematocrit 37.1 % (30.3-42.9); Hemoglobin 12.5 gm/dl (10.1-14.3); Lymphocytes # (Auto) 1.7 K/mm3 (1.2-5.4); Mean Corpuscular HGB Conc 34 % (30-34); Mean Corpuscular Volume 99 fl (79-97); Monocytes # (Auto) 0.7 K/mm3 (0.0-0.8); Monocytes % (Auto) 9.4 % (0.0-7.3); Platelet Count 266 K/mm3 (140-440); Red Blood Count 3.76 M/mm3 (3.65-5.03); Red Cell Distribution Width 16.8 % (13.2-15.2)
[2019-03-23 08:58] LABS: Creatine Kinase MB 1.4 ng/mL (0.0-4.0)
[2019-03-23 09:21] LABS: BUN/Creatinine Ratio TNR; Blood Urea Nitrogen TNR mg/dL (7-17)
[2019-03-23 09:22] LABS: Calcium TNR mg/dL (8.4-10.2); Chol/HDL Ratio TNR %; HDL Cholesterol TNR mg/dL (40-59); Hemolysis Index TNR; LDL Cholesterol,Direct TNR mg/dL (50-130)
[2019-03-23] MEDS: ASPIRIN PO SCH (09:46)
--- NOTE | 2019-03-23 10:18 | Progress Note ---
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 suspect encephalopathy Objective - Vital Sign Vital Signs - 12hr 03/22/19 03/22/19 03/22/19 22:15 22:30 22:45 Temperature Pulse Rate 98 H 104 H 102 H Respiratory Rate Blood Pressure 106/70 115/53 110/44 O2 Sat by Pulse Oximetry 03/22/19 03/22/19 03/23/19 23:00 23:20 00:23 Temperature 98.0 F 97.7 F Pulse Rate 100 H 83 Respiratory 18 16 Rate Blood Pressure 114/48 115/66 121/79 O2 Sat by Pulse Oximetry 03/23/19 03/23/19 03/23/19 00:44 01:00 03:00 Temperature Pulse Rate 67 Respiratory 17 Rate Blood Pressure O2 Sat by Pulse 96 Oximetry 03/23/19 03/23/19 03/23/19 03:29 04:00 04:10 Temperature 98.9 F Pulse Rate 77 Respiratory 20 Rate Blood Pressure 141/94 O2 Sat by Pulse 98 Oximetry 03/23/19 03/23/19 09:08 09:46 Temperature 97.5 F L Pulse Rate 70 77 Respiratory 16 Rate Blood Pressure 151/101 151/101 O2 Sat by Pulse 100 Oximetry - Laboratory Findings CBC and BMP: 03/23/19 07:56 03/23/19 07:56 Abnormal Lab Findings: Abnormal Labs 03/22/19 03/22/19 03/23/19 16:31 16:31 07:56 MCV 98 H 99 H MCH 33 H 33 H RDW 16.9 H 16.8 H [place] % (Auto) 9.4 H Seg Neutrophils % 76.5 H Sodium 135 L Potassium 8.2 H* Carbon Dioxide 18 L BUN 63 H Creatinine 14.3 H
[2019-03-23 10:26] LABS: Calcium 9.4 mg/dL (8.4-10.2)
--- NOTE | 2019-03-23 11:49 | Consultation ---
History of Present Illness Consult date: 03/23/19 Consult reason: chest pain History of present illness: 33-year-old -[place] female with history of essential hypertension, history of lupus, end-stage renal disease on hemodialysis. Was having chest pain during her dialysis and her blood pressure was found to be markedly elevated up to 224/147. Was sent to the emergency room. She was having anterior sharp chest pain lasting a few seconds. Also her K+ was found to be elevated and was treated. Presently we were called in consultation because of chest pain. Patient's past medical history included the cardiac-arguello the underwent intervention of the mid LAD at [facility] in June 2014. Subsequently he has the chest pains in 2014 and in spite of negative stress test she was having chest pain underwent cardiac catheterization on 06/23/[address] De La Torre at this hospital and it showed patent mid LAD in addition to no other significant disease. Continued on medical therapy. Patient also had an echocardiogram done at [facility] in September 2017 which showed mildly dilated left atrium with ejection fraction of 60-65%. Patient had pharmacologic myocardial perfusion imaging performed at this hospital on 07/21/2017 which showed no significant ischemia, defects noted in the apical and mid anterior wall which were felt to be artifactual. At this time patient in addition to intermittent chest pains,patient is also having nausea and vomiting clear liquids. 3 sets of cardiac enzymes including troponin and MB were found to be normal. Also EKG showed sinus rhythm with left anterior fascicular block and low voltage complexes otherwise no acute changes were noted. Past History Past Medical History: anemia, CAD (s/p pCI of mid LAD 06/2014,cath on 06/23/2015 showed patent stent.), dialysis, ESRD, GERD, other (lupus) Medications and Allergies Allergies Allergy/AdvReac Type Severity Reaction Status Date / Time hydrocodone bitartrate Allergy Itching Verified 03/22/19 15:37 [From Vicodin] oxycodone Allergy Itching Verified 03/23/19 00:35 tramadol Allergy Hives Verified 03/22/19 15:37 metoclopramide HCl AdvReac Unknown Verified 03/22/19 15:37 [From Reglan] Home Medications Medication Instructions Recorded Confirmed Last Taken Type Sevelamer HCl [Renagel] 800 mg PO TIDWM #30 tablet 06/24/15 12/17/18 1 Day Ago Rx ~07/18/17 Carvedilol [Coreg] 25 mg PO BID #60 tablet 07/29/15 12/17/18 1 Day Ago Rx ~07/18/17 predniSONE [Deltasone] 7 mg PO QDAY 12/17/18 12/17/18 Unknown History Active Meds: Active Medications Aspirin (Aspirin) 325 mg PO QDAY COUNT INCLUDES THE [facility] Last Admin: 03/23/19 09:46 Dose: 325 mg Documented by: Bisacodyl (Dulcolax) 10 mg [place] QDAY PRN PRN Reason: Constipation Hydralazine HCl (Apresoline) 5 mg IV Q6H PRN PRN Reason: Hypertension Last Admin: 03/23/19 09:46 Dose: 5 mg Documented by: Magnesium Hydroxide (Milk Of Magnesia) 30 ml PO Q4H PRN PRN Reason: Constipation Ondansetron HCl (Zofran) 4 mg IV Q4H PRN PRN Reason: Nausea And Vomiting Pravastatin Sodium (Pravachol) 20 mg PO QHS COUNT INCLUDES THE [facility] Sodium Chloride (Sodium Chloride Flush Syringe 10 Ml) 10 ml IV PRN PRN PRN Reason: LINE FLUSH Review of Systems Ears, nose, mouth and throat: no ear discharge Breasts: deferred Cardiovascular: chest pain, dyspnea on exertion Respiratory: cough Gastrointestinal: nausea, vomiting Musculoskeletal: no low back pain Integumentary: no rash Neurological: no syncope Endocrine: no cold intolerance Hematologic/Lymphatic: no easy bruising Allergic/Immunologic: no urticaria Physical Examination Vital Signs Temp Pulse Resp BP Pulse Ox 98.7 F 81 18 162/110 100 03/22/19 15:56 03/22/19 15:56 03/22/19 15:56 03/22/19 15:56 03/22/19 15:56 General appearance: no acute distress Neck: Positive: neck supple, trachea midline Cardiac: Positive: Reg Rate and Rhythm, S4. Negative: Systolic Murmur Lungs: Positive: Decreased Breath Sounds Neuro: Positive: Grossly Intact Abdomen: Positive: Unremarkable Female genitourinary: deferred Skin: Negative: Rash Extremities: Absent: edema Results 03/23/19 07:56 03/23/19 09:56 Cardiac Enzymes 03/22/19 03/23/19 Range/Units 23:57 07:56 CK-MB (CK-2) 1.3 1.4 (0.0-4.0) ng/mL Lipids 03/23/19 Range/Units 07:56 Triglycerides TNR Cholesterol TNR HDL Cholesterol TNR Cholesterol/HDL Ratio TNR CBC 03/22/19 03/23/19 Range/Units 16:31 07:56 WBC 7.8 6.9 (4.5-11.0) K/mm3 RBC 3.83 3.76 (3.65-5.03) M/mm3 Hgb 12.7 12.5 (10.1-14.3) gm/dl Hct 37.6 37.1 (30.3-42.9) % Plt Count 259 266 (140-440) K/mm3 Lymph # 1.3 1.7 (1.2-5.4) K/mm3 [place] # 0.4 0.7 (0.0-0.8) K/mm3 Eos # 0.1 0.1 (0.0-0.4) K/mm3 Baso # 0.1 0.1 (0.0-0.1) K/mm3 Comprehensive Metabolic Panel 03/22/19 03/23/19 03/23/19 Range/Units 16:31 07:56 09:56 Sodium 135 L TNR 138 (137-145) mmol/L Potassium 8.2 H* TNR 6.4 H* D (3.6-5.0) mmol/L Chloride 98.5 TNR 95.4 L (98-107) mmol/L Carbon Dioxide 18 L TNR 25 D (22-30) mmol/L BUN 63 H TNR 41 H (7-17) mg/dL Creatinine 14.3 H TNR 11.3 H (0.7-1.2) mg/dL Glucose 86 TNR 81 (65-100) mg/dL Calcium 9.4 TNR 9.4 (8.4-10.2) mg/dL Laboratory Tests 03/22/19 03/22/19 03/22/19 16:31 21:57 23:57 Total Creatine Kinase 85 CK-MB (CK-2) 1.3 Troponin T < 0.010 < 0.010 03/23/19 07:56 Total Creatine Kinase 110 CK-MB (CK-2) 1.4 Troponin T < 0.010 EKG interpretations - Telemetry EKG Rhythm: Sinus Rhythm (03/22/2019 15:48 hrs S.R,LAFB,low voltage in precordial leads,poor R wave progression across precordial leads.) Assessment and Plan Chest pain,atypical,no acute changes on EKG,patient with hx. of PCI of LAD in 2013,repeat cath in 2014 showing patent stent,would reevaluate with pharmacologic MPI.Did not have any cardiac f/u in few years. - Patient Problems (1) Acute hyperkalemia Current Visit: Yes Status: Acute (2) ESRD (end stage renal disease) Current Visit: Yes Status: Chronic (3) Chest pain Current Visit: No Status: Acute (4) GERD (gastroesophageal reflux disease) Current Visit: No Status: Acute (5) Nausea & vomiting Current Visit: No Status: Acute (6) Chronic diastolic (congestive) heart failure Current Visit: No Status: Chronic (7) Elevated troponin Current Visit: No Status: Chronic (8) Hyperlipidemia Current Visit: No Status: Chronic (9) Lupus Current Visit: No Status: Chronic (10) S/P PTCA (percutaneous transluminal coronary angioplasty) Current Visit: No Status: Chronic
[2019-03-23] MEDS ORDERED: CALCIUM GLUCONATE 2,000 MG in NACL 0.9% 100 ML IV ONE (12:47)
[2019-03-23] MEDS ORDERED: HumuLIN R IV ONE (12:47)
[2019-03-23] MEDS ORDERED: D50W (25GM) Syringe IV ONE (12:47)
--- NOTE | 2019-03-23 12:49 | Progress Note ---
Assessment and Plan Severe Hyperkalemia due to ESRD left leg weakness ?, r/o CVA Chest pain, acute on chronic ESRD, need dialysis CAD s/p PCI on 2013 Hypertension, uncontrolled Lupus CHFpEF with DD, stable Plan monitor at medicine Renal is consulted for emergent dialysis, status post hyperkalemia cocktail follow cardiac enzymes, consulted cardiology - stress test tomorrow Pending MRI brain Continue appropiate outpatient medications dvt prophalaxis Brief History: 33-year-old woman with a history of CAD, hypertension, CHF with DD, hypertension, lupus, end-stage renal disease on dialysis, Sunday, and Sunday came to the emergency room with complaints of chest pain. BP was 200/117 and k was 8.2 on admission. Radiological study: CXR Head CT 2D echo Subjective Date of service: 03/23/19 Interval history: Patient seen and examined last HD was on c/o back spasm and intermittent chest pain Objective - Constitutional Vitals: Vital Signs - 12hr 03/23/19 03/23/19 03/23/19 01:00 03:00 03:29 Temperature Pulse Rate 77 Pulse Rate [ Apical] Pulse Rate [ Left Radial] Pulse Rate [ Right Radial] Respiratory 17 Rate Blood Pressure 141/94 Blood Pressure [Left] O2 Sat by Pulse 96 98 Oximetry 03/23/19 03/23/19 03/23/19 04:00 04:10 09:08 Temperature 98.9 F 97.5 F L Pulse Rate 70 Pulse Rate [ Apical] Pulse Rate [ Left Radial] Pulse Rate [ Right Radial] Respiratory 20 16 Rate Blood Pressure 151/101 Blood Pressure [Left] O2 Sat by Pulse 100 Oximetry 03/23/19 03/23/19 03/23/19 09:46 10:00 12:00 Temperature 98.2 F Pulse Rate 77 100 H Pulse Rate [ 77 Apical] Pulse Rate [ 77 Left Radial] Pulse Rate [ 77 Right Radial] Respiratory 19 18 Rate Blood Pressure 151/101 Blood Pressure 157/95 [Left] O2 Sat by Pulse 98 99 Oximetry General appearance: Present: no acute distress, well-nourished - EENT Eyes: PERRL, EOM intact ENT: hearing intact, clear oral mucosa Ears: bilateral: normal - Neck Neck: supple, normal ROM - Respiratory Respiratory effort: normal Respiratory: bilateral: CTA - Cardiovascular Rhythm: regular Heart Sounds: Present: S1 & S2. Absent: gallop, rub Extremities: pulses intact, No edema, normal color, Full ROM - Gastrointestinal General gastrointestinal: Present: soft, non-tender, non-distended, normal bowel sounds - Integumentary Integumentary: clear, warm, dry - Musculoskeletal Musculoskeletal: 1, strength equal bilaterally - Neurologic Neurologic: moves all extremities - Psychiatric Psychiatric: memory intact, appropriate mood/affect, intact judgment & insight - Labs CBC & Chem 7: 03/23/19 07:56 03/24/19 04:38 Labs: Abnormal lab results 03/22/19 03/22/19 03/23/19 Range/Units 16:31 16:31 07:56 MCV 98 H 99 H (79-97) fl MCH 33 H 33 H (28-32) pg RDW 16.9 H 16.8 H (13.2-15.2) % [place] % (Auto) 9.4 H (0.0-7.3) % Seg Neutrophils % 76.5 H (40.0-70.0) % Sodium 135 L (137-145) mmol/L Potassium 8.2 H* (3.6-5.0) mmol/L Chloride (98-107) mmol/L Carbon Dioxide 18 L (22-30) mmol/L BUN 63 H (7-17) mg/dL Creatinine 14.3 H (0.7-1.2) mg/dL 03/23/19 Range/Units 09:56 MCV (79-97) fl MCH (28-32) pg RDW (13.2-15.2) % [place] % (Auto) (0.0-7.3) % Seg Neutrophils % (40.0-70.0) % Sodium (137-145) mmol/L Potassium 6.4 H* D (3.6-5.0) mmol/L Chloride 95.4 L (98-107) mmol/L Carbon Dioxide (22-30) mmol/L BUN 41 H (7-17) mg/dL Creatinine 11.3 H (0.7-1.2) mg/dL
--- NOTE | 2019-03-23 12:51 | Consultation ---
History of Present Illness - Reason for Consult Consult date: 03/23/19 end stage renal disease - History of Present Illness pt with h/o ESRD on HD every TTS, last HD , was admitted yesterday due to worsening checst pain, she was noted to have severe hyperkalemia, I ordered STAT HD which she tolerate well, was noted to have elevated K this AM and was given Kayexalte but started to have nausea and vomiting. Past History Past Medical History: anemia, CAD (s/p pCI of mid LAD 06/2014,cath on 06/23/2015 showed patent stent.), dialysis, ESRD, GERD, other (lupus) Medications and Allergies Allergies Allergy/AdvReac Type Severity Reaction Status Date / Time hydrocodone bitartrate Allergy Itching Verified 03/22/19 15:37 [From Vicodin] oxycodone Allergy Itching Verified 03/23/19 00:35 tramadol Allergy Hives Verified 03/22/19 15:37 metoclopramide HCl AdvReac Unknown Verified 03/22/19 15:37 [From Reglan] Home Medications Medication Instructions Recorded Confirmed Last Taken Type Sevelamer HCl [Renagel] 800 mg PO TIDWM #30 tablet 06/24/15 12/17/18 1 Day Ago Rx ~07/18/17 Carvedilol [Coreg] 25 mg PO BID #60 tablet 07/29/15 12/17/18 1 Day Ago Rx ~07/18/17 predniSONE [Deltasone] 7 mg PO QDAY 12/17/18 12/17/18 Unknown History Active Meds: Active Medications Aspirin (Aspirin) 325 mg PO QDAY [facility] Last Admin: 03/23/19 09:46 Dose: 325 mg Documented by: Bisacodyl (Dulcolax) 10 mg [place] QDAY PRN PRN Reason: Constipation Hydralazine HCl (Apresoline) 5 mg IV Q6H PRN PRN Reason: Hypertension Last Admin: 03/23/19 09:46 Dose: 5 mg Documented by: Magnesium Hydroxide (Milk Of Magnesia) 30 ml PO Q4H PRN PRN Reason: Constipation Metoprolol Tartrate (Lopressor) 50 mg PO BID [facility] Stop: 04/02/19 12:59 Ondansetron HCl (Zofran) 4 mg IV Q4H PRN PRN Reason: Nausea And Vomiting Last Admin: 03/23/19 11:50 Dose: 4 mg Documented by: Pravastatin Sodium (Pravachol) 20 mg PO QHS [facility] Sodium Chloride (Sodium Chloride Flush Syringe 10 Ml) 10 ml IV PRN PRN PRN Reason: LINE FLUSH Review of Systems All systems: negative (chest pain) Exam - Vital Signs Vital signs: Vital Signs Temp Pulse Resp BP Pulse Ox 98.7 F 81 18 162/110 100 03/22/19 15:56 03/22/19 15:56 03/22/19 15:56 03/22/19 15:56 03/22/19 15:56 - General Appearance General appearance: well-developed, well-nourished, appears stated age EENT: ATNC, PERRL, mucous membranes moist Neck: Present: neck supple Respiratory: Clear to Ascultation Heart: regular, S1S2 Gastrointestinal: Present: normoactive bowel sounds Integumentary: no rash, warm and dry Neurologic: no focal deficit, no asterixis, alert and oriented x3 Musculoskeletal: Present: other (no edema in BLE) Psychiatric: mood/affect appropriate, cooperative Results - Lab Results 03/23/19 07:56 03/23/19 09:56 Most recent lab results Calcium 9.4 mg/dL (8.4-10.2) 03/23/19 09:56 Assessment and Plan ESRD on HD Hyperkalemia Chest pain Anemia in CKD HTN - STAT HD ordered again today, HD nurse was contacted - will assess HD needs daily - renally dose meds - strict I&O - daily weight Floyd Molina MD [phone]
[2019-03-23] MEDS ORDERED: TYLENOL PO PRN (13:43)
[2019-03-23] MEDS ORDERED: PERCOCET 5/325 PO PRN (13:43)
[2019-03-23] MEDS: LOPRESSOR PO SCH ×2 (19:35→22:11)
[2019-03-23] MEDS: PRAVACHOL PO SCH (22:11)
[2019-03-24 06:31] LABS: BUN/Creatinine Ratio TNR; Blood Urea Nitrogen TNR mg/dL (7-17)
[2019-03-24 06:32] LABS: Calcium TNR mg/dL (8.4-10.2); Hemolysis Index TNR
[2019-03-24] MEDS: LOPRESSOR PO SCH ×2 (10:00→21:55)
[2019-03-24] MEDS: ASPIRIN PO SCH (10:00)
--- NOTE | 2019-03-24 10:16 | Progress Note ---
Assessment and Plan Assessment: Atypical chest pain - recurrent; ECG with NAF; Sangeeta negative for AMI Hyperkalemia CAD - s/p PCI of mid LAD 06/2014; LHC 06/2015: patent LAD stent, otherwise normal coronaries ESRD, on HD HTN Hyperlipidemia Lupus Plan: Pt continues to have intermittent cp. Lexiscan MPI stress test done 01/2018 was negative for ischemia. Stress test this AM was cancelled due to hyperkalemia and pt c/o left eye swelling and pain. Will attempt to proceed with lexiscan MPI stress test in AM pending serum K+ WNL and pt is agreeable. NPO after MN. Volume and electrolyte management per nephrology. The patient has been seen in conjunction with Dr. Gunter who agrees with the assessment and plan of care. Subjective Date of service: 03/24/19 Principal diagnosis: HTN; cp Interval history: pt seen in dialysis, still with some intermittent cp overnight, was scheduled for stress test today which was cancelled due to hyperkalemia and pt c/o left eye pain. Objective Last Vital Signs Temp 98.5 F 03/24/19 07:58 Pulse 85 03/24/19 04:09 Resp 18 03/24/19 07:58 BP 121/74 03/24/19 07:58 Pulse Ox 99 03/24/19 04:09 - Physical Examination General: No Apparent Distress Neck: Positive: neck supple Cardiac: Positive: Reg Rate and Rhythm, S1/S2 Lungs: Positive: Decreased Breath Sounds Neuro: Positive: Grossly Intact Abdomen: Positive: Unremarkable Skin: Negative: Rash Extremities: Absent: edema - Labs and Meds Comprehensive Metabolic Panel 03/23/19 03/23/19 03/24/19 Range/Units 09:56 22:29 04:38 Sodium 138 TNR (137-145) mmol/L Potassium 6.4 H* D 4.8 D TNR (3.6-5.0) mmol/L Chloride 95.4 L TNR (98-107) mmol/L Carbon Dioxide 25 D TNR (22-30) mmol/L BUN 41 H TNR (7-17) mg/dL Creatinine 11.3 H TNR (0.7-1.2) mg/dL Glucose 81 TNR (65-100) mg/dL Calcium 9.4 TNR (8.4-10.2) mg/dL - Imaging and Cardiology EKG: report reviewed, image reviewed Cardiac cath: report reviewed (In 06/2014, she underwent cardiac cath and PCI of 90% mid LAD lesion with a STEVEN at [facility]. Repeat cath in 06/2015 showed patent LAD stent and otherwise normal coronaries.) - Telemetry EKG Rhythm: Sinus Rhythm
[2019-03-24] MEDS ORDERED: BENADRYL IV STA (10:31)
[2019-03-24] MEDS ORDERED: NACL 0.9 (PRIMING MACHINE ONLY DIALYSIS) MC ONE ×2 (10:52→14:41)
--- NOTE | 2019-03-24 13:21 | Progress Note ---
Assessment and Plan End Stage Renal Disease on Hemodialysis: -Hemodialyzed today for UF and clearance -Fluid restriction of 1 liter per day -Obtain daily weights -Monitor I/O's -Renally dose medications -Assess dialysis needs daily S/P Hyperkalemia: -Low potassium diet -BMP daily Chest pain: -Echocardiogram today -Stress test plan for tomorrow -Cardiology onboard Hypertension: -Blood pressures are stable -Monitor BP and adjust medications as needed Subjective Date of service: 03/24/19 Principal diagnosis: HTN; cp Interval history: Patient completed HD today. Now off floor undergoing echocardiogram. Objective - Vital Signs Vital signs: Vital Signs - 12hr 03/24/19 03/24/19 03/24/19 04:09 07:58 08:15 Temperature 97.9 F 98.5 F 98.0 F Pulse Rate 85 86 Respiratory 16 18 18 Rate Blood Pressure 137/95 121/74 132/64 O2 Sat by Pulse 99 Oximetry 03/24/19 09:40 Temperature Pulse Rate 88 Respiratory Rate Blood Pressure 132/92 O2 Sat by Pulse Oximetry - Lab 03/23/19 07:56 03/24/19 04:38 Most recent lab results Calcium TNR 03/24/19 04:38 Medications & Allergies - Medications Allergies/Adverse Reactions: Allergies hydrocodone bitartrate [From Vicodin] Allergy (Verified 03/22/19 15:37) Itching oxycodone Allergy (Verified 03/23/19 00:35) Itching tramadol Allergy (Verified 03/22/19 15:37) Hives metoclopramide HCl [From Reglan] Adverse Reaction (Verified 03/22/19 15:37) Unknown Home Medications: Home Medications Medication Instructions Recorded Confirmed Last Taken Type Sevelamer HCl [Renagel] 800 mg PO TIDWM #30 tablet 06/24/15 12/17/18 1 Day Ago Rx ~07/18/17 Metoprolol [Lopressor TAB] 50 mg PO BID #60 tablet 03/24/19 Unknown Rx Pantoprazole [Protonix] 40 mg PO QDAY #30 tablet 03/24/19 Unknown Rx Pravastatin [Pravachol] 20 mg PO QHS #30 tablet 03/24/19 Unknown Rx Active Medications: Generic Name Dose Route Start Last Admin Trade Name Freq PRN Reason Stop Dose Admin Acetaminophen 650 mg 03/23/19 13:43 Tylenol PO Q4H PRN Pain MILD(1-3)/Fever >100.5/MEJIA Aspirin 325 mg 03/23/19 10:00 03/23/19 09:46 Aspirin PO 325 mg QDAY ADIA Administration Bisacodyl 10 mg 03/22/19 22:05 Dulcolax [place] QDAY PRN Constipation Hydralazine HCl 5 mg 03/22/19 23:08 03/23/19 09:46 Apresoline IV 5 mg Q6H PRN Administration Hypertension Magnesium Hydroxide 30 ml 03/22/19 22:05 Milk Of Magnesia PO Q4H PRN Constipation Metoprolol Tartrate 50 mg 03/23/19 13:00 03/23/19 22:11 Lopressor PO 04/02/19 12:59 Not Given BID ADIA Ondansetron HCl 4 mg 03/22/19 22:05 03/23/19 11:50 Zofran IV 4 mg Q4H PRN Administration Nausea And Vomiting Oxycodone/Acetaminophen 1 tab 03/23/19 13:43 03/23/19 20:24 Percocet 5/325 PO 1 tab Q6H PRN Administration Pain, Moderate (4-6) Pravastatin Sodium 20 mg 03/23/19 22:00 03/23/19 22:11 Pravachol PO 20 mg QHS ADIA Administration Sodium Chloride 10 ml 03/22/19 22:05 Sodium Chloride Flush Syringe 10 Ml IV PRN PRN LINE FLUSH
--- NOTE | 2019-03-24 14:00 | Progress Note ---
Assessment and Plan Severe Hyperkalemia due to ESRD left leg weakness ?, r/o CVA - refused MRI Chest pain, acute on chronic ESRD, need dialysis CAD s/p PCI on 2013 Hypertension, uncontrolled Lupus, h/o CHFpEF with DD, stable Plan monitor at medicine Renal is consulted for dialysis, status post hyperkalemia cocktail consulted cardiology - postponded stress test till tomorrow for hyperkalemia 2d echo showed preserved EF with DD She refused MRI brain Continue appropiate outpatient medications dvt prophalaxis Possible d/c tomorrow following stress test Brief History: 33-year-old woman with a history of CAD, hypertension, CHF with DD, hypertension, lupus, end-stage renal disease on dialysis, Sunday, and Sunday came to the emergency room with complaints of chest pain. BP was 200/1 17 and k was 8.2 on admission. Radiological study: CXR Head CT 2D echo Subjective Date of service: 03/24/19 Principal diagnosis: HTN; cp Interval history: Patient seen and examined states back spasm and intermittent chest pain improved s/p HD today, stress test postponded till tomorrow refused MRI Objective - Exam Narrative Exam: General appearance: Present: no acute distress, well-nourished - EENT Eyes: PERRL, EOM intact ENT: hearing intact, clear oral mucosa Ears: bilateral: normal - Neck Neck: supple, normal ROM - Respiratory Respiratory effort: normal Respiratory: bilateral: CTA - Cardiovascular Rhythm: regular Heart Sounds: Present: S1 & S2. Absent: gallop, rub Extremities: pulses intact, No edema, normal color, Full ROM - Gastrointestinal General gastrointestinal: Present: soft, non-tender, non-distended, normal bowel sounds - Integumentary Integumentary: clear, warm, dry - Musculoskeletal Musculoskeletal: 1, strength equal bilaterally - Neurologic Neurologic: moves all extremities - Psychiatric Psychiatric: memory intact, appropriate mood/affect, intact judgment & insight - Constitutional Vitals: Vital Signs - 12hr 03/24/19 03/24/19 03/24/19 04:09 07:58 08:15 Temperature 97.9 F 98.5 F 98.0 F Pulse Rate 85 86 Respiratory 16 18 18 Rate Blood Pressure 137/95 121/74 132/64 O2 Sat by Pulse 99 Oximetry 03/24/19 03/24/19 03/24/19 09:40 09:45 10:00 Temperature Pulse Rate 88 90 92 H Respiratory Rate Blood Pressure 132/92 126/76 126/82 O2 Sat by Pulse Oximetry 03/24/19 03/24/19 03/24/19 10:15 10:30 10:45 Temperature Pulse Rate 92 H 96 H 98 H Respiratory Rate Blood Pressure 126/72 130/72 124/66 O2 Sat by Pulse Oximetry 03/24/19 03/24/19 03/24/19 11:00 11:15 11:30 Temperature Pulse Rate 102 H 102 H 102 H Respiratory Rate Blood Pressure 132/90 120/80 116/70 O2 Sat by Pulse Oximetry 03/24/19 03/24/19 03/24/19 11:45 12:00 12:15 Temperature Pulse Rate 104 H 108 H 104 H Respiratory Rate Blood Pressure 114/74 96/50 98/58 O2 Sat by Pulse Oximetry 03/24/19 03/24/19 03/24/19 12:30 12:40 13:00 Temperature 98.0 F Pulse Rate 111 H 112 H 100 H Respiratory 18 Rate Blood Pressure 92/43 91/38 110/70 O2 Sat by Pulse Oximetry - Labs CBC & Chem 7: 03/23/19 07:56 03/24/19 04:38
--- NOTE | 2019-03-24 16:02 | Progress Note ---
Subjective Date of service: 03/24/19 Principal diagnosis: HTN; cp Interval history: having back pain this is likely from the seizure seizure free on the current meds as listed plan continue meds does appear better post dialysis Objective - Vital Sign Vital Signs - 12hr 03/24/19 03/24/19 03/24/19 04:09 07:58 08:15 Temperature 97.9 F 98.5 F 98.0 F Pulse Rate 85 86 Respiratory 16 18 18 Rate Blood Pressure 137/95 121/74 132/64 O2 Sat by Pulse 99 Oximetry 03/24/19 03/24/19 03/24/19 09:40 09:45 10:00 Temperature Pulse Rate 88 90 92 H Respiratory Rate Blood Pressure 132/92 126/76 126/82 O2 Sat by Pulse Oximetry 03/24/19 03/24/19 03/24/19 10:15 10:30 10:45 Temperature Pulse Rate 92 H 96 H 98 H Respiratory Rate Blood Pressure 126/72 130/72 124/66 O2 Sat by Pulse Oximetry 03/24/19 03/24/19 03/24/19 11:00 11:15 11:30 Temperature Pulse Rate 102 H 102 H 102 H Respiratory Rate Blood Pressure 132/90 120/80 116/70 O2 Sat by Pulse Oximetry 03/24/19 03/24/19 03/24/19 11:45 12:00 12:15 Temperature Pulse Rate 104 H 108 H 104 H Respiratory Rate Blood Pressure 114/74 96/50 98/58 O2 Sat by Pulse Oximetry 03/24/19 03/24/19 03/24/19 12:30 12:40 13:00 Temperature 98.0 F Pulse Rate 111 H 112 H 100 H Respiratory 18 Rate Blood Pressure 92/43 91/38 110/70 O2 Sat by Pulse Oximetry - Laboratory Findings CBC and BMP: 03/23/19 07:56 03/24/19 04:38 Abnormal Lab Findings: Abnormal Labs 03/22/19 03/22/19 03/23/19 16:31 16:31 07:56 MCV 98 H 99 H MCH 33 H 33 H RDW 16.9 H 16.8 H [place] % (Auto) 9.4 H Seg Neutrophils % 76.5 H Sodium 135 L Potassium 8.2 H* Chloride Carbon Dioxide 18 L BUN 63 H Creatinine 14.3 H POC Glucose 03/23/19 03/23/19 09:56 13:33 MCV MCH RDW [place] % (Auto) Seg Neutrophils % Sodium Potassium 6.4 H* D Chloride 95.4 L Carbon Dioxide BUN 41 H Creatinine 11.3 H POC Glucose 115 H
[2019-03-24] MEDS: PRAVACHOL PO SCH (21:55)
[2019-03-24] MEDS: SODIUM CHLORIDE FLUSH SYRINGE 10 ML IV PRN (21:55)
[2019-03-24] MEDS ORDERED: NORCO 5/325 PO PRN (22:16)
[2019-03-25 04:16] VITALS: BP 126/80
[2019-03-25 05:53] LABS: Calcium 10.5 mg/dL (8.4-10.2)
[2019-03-25] MEDS: RENVELA PO SCH ×2 (08:00→12:08)
[2019-03-25] MEDS: LOPRESSOR PO SCH (09:29)
[2019-03-25] MEDS: ASPIRIN PO SCH (09:29)
[2019-03-25] MEDS: SODIUM CHLORIDE FLUSH SYRINGE 10 ML IV PRN (09:29)
--- NOTE | 2019-03-25 10:22 | Progress Note ---
Assessment and Plan Assessment: Atypical chest pain - recurrent; ECG with NAF; Sangeeta negative for AMI Hyperkalemia CAD - s/p PCI of mid LAD 06/2014; [facility] 06/2015: patent LAD stent, otherwise normal coronaries ESRD, on HD HTN Hyperlipidemia Lupus Plan: Pt still with c/o intermittent chest pain overnight although she is refusing any additional cardiac w/u, including stress test, at this time and is requesting to be discharged home. Nothing further to add from cardiac perspective at this time. Recommend follow up with [place] [facility] within 1-2 weeks of hospital discharge. Pt verbalizes understanding. The patient has been seen in conjunction with Dr. Gunter who agrees with the assessment and plan of care. Subjective Date of service: 03/25/19 Principal diagnosis: HTN; cp Interval history: pt resting comfortably in bed, still with some intermittent chest pain overnight although she is refusing any additional cardiac w/u, including stress test, at this time and is requesting to be discharged home. Objective Last Vital Signs Temp 97.8 F 03/25/19 03:24 Pulse 91 H 03/25/19 03:24 Resp 16 03/25/19 03:24 BP 126/80 03/25/19 03:24 Pulse Ox 96 03/25/19 03:24 - Physical Examination General: No Apparent Distress Neck: Positive: neck supple Cardiac: Positive: Reg Rate and Rhythm, S1/S2 Lungs: Positive: Decreased Breath Sounds Neuro: Positive: Grossly Intact Abdomen: Positive: Unremarkable Skin: Negative: Rash Extremities: Absent: edema - Labs and Meds Comprehensive Metabolic Panel 03/25/19 Range/Units 04:44 Sodium 138 (137-145) mmol/L Potassium 5.2 H (3.6-5.0) mmol/L Chloride 95.5 L (98-107) mmol/L Carbon Dioxide 29 (22-30) mmol/L BUN 19 H (7-17) mg/dL Creatinine 6.8 H (0.7-1.2) mg/dL Glucose 88 (65-100) mg/dL Calcium 10.5 H (8.4-10.2) mg/dL - Imaging and Cardiology EKG: report reviewed, image reviewed Cardiac cath: report reviewed (In 06/2014, she underwent cardiac cath and PCI of 90% mid LAD lesion with a STEVEN at [facility]. Repeat cath in 06/2015 showed patent LAD stent and otherwise normal coronaries.)
--- NOTE | 2019-03-25 11:27 | Discharge Summary ---
Providers - Providers Date of Admission: 03/22/19 17:55 Date of discharge: 03/25/19 Attending physician: AMBROSIO GAMA 03/22/19 Consult to Physician [CONS] Routine Comment: Consulting Provider: PILI FLORES Physician Instructions: Reason For Exam: cva 03/22/19 17:50 Consult to Physician [CONS] Stat Comment: Consulting Provider: AGUSTÍN ROBERTS Physician Instructions: Reason For Exam: ESRD ON HD, ACUTE HYPERKALEMIA 03/22/19 22:05 Occupational Therapy Evaluate and Treat [CONS] Routine Comment: Reason For Exam: Neuro deficits Physical Therapy Evaluation and Treat [CONS] Routine Comment: Reason For Exam: Neuro deficits 03/22/19 23:48 Consult to Physician [CONS] Routine Comment: Consulting Provider: MARIO FENG Physician Instructions: Reason For Exam: cp Primary care physician: MEDICAL ADMINISTRATIVE TECHNICIAN Hospitalization Reason for admission: chest pain Condition: Stable Hospital course: Brief History: 33-year-old woman with a history of CAD, hypertension, CHF with DD, hypertension, lupus, end-stage renal disease on dialysis, Sunday, and Sunday came to the emergency room with complaints of chest pain. BP was 200/117 and k was 8.2 on admission. She was given Kayexalate, sodium bicarbonate, insulin/D50, calcium gluconate for hyperkalemia, had emergent dialysis, home medications resumed. Her potassium level trended down and improved. Cardiology was consulted for chest pain. Patient also complained of questionable left leg weakness but refused MRI. Neurology was consulted and recommended to continue current management. Patient was recommended to have stress test but she refused twice. Patient was then discharged home in stable condition with outpatient follow-up. Radiological study: CXR Head CT 2D echo Discharge diagnosis: Severe Hyperkalemia due to ESRD left leg weakness ?, r/o CVA - refused MRI Chest pain, acute on chronic, refused stress test - 2d echo showed preserved EF with DD ESRD, need dialysis CAD s/p PCI on 2013 Hypertension, uncontrolled Lupus, h/o CHFpEF with DD, stable Disposition: -01 TO HOME OR SELFCARE Time spent for discharge: 34 minutes Core Measure Documentation - Palliative Care Palliative Care/ Comfort Measures: Not Applicable - Core Measures Any of the following diagnoses?: none Exam - Physical Exam Narrative exam: General appearance: Present: no acute distress, well-nourished - EENT Eyes: PERRL, EOM intact ENT: hearing intact, clear oral mucosa Ears: bilateral: normal - Neck Neck: supple, normal ROM - Respiratory Respiratory effort: normal Respiratory: bilateral: CTA - Cardiovascular Rhythm: regular Heart Sounds: Present: S1 & S2. Absent: gallop, rub Extremities: pulses intact, No edema, normal color, Full ROM - Gastrointestinal General gastrointestinal: Present: soft, non-tender, non-distended, normal bowel sounds - Integumentary Integumentary: clear, warm, dry - Musculoskeletal Musculoskeletal: 1, strength equal bilaterally - Neurologic Neurologic: moves all extremities - Psychiatric Psychiatric: memory intact, appropriate mood/affect, intact judgment & insight - Constitutional Vitals: Temp Pulse Resp BP Pulse Ox 97.8 F 91 H 16 126/80 96 03/25/19 03:24 03/25/19 03:24 03/25/19 03:24 03/25/19 03:24 03/25/19 03:24 Plan Activity: advance as tolerated Weight Bearing Status: Weight Bear as Tolerated Diet: low fat, renal Special Instructions: restrict fluid intake to (1.5L per day) Follow up with: PRIMARY CARE, [Primary Care Provider] - 3-5 Days Prescriptions: Pravastatin [Pravachol] 20 mg PO QHS #30 tablet Metoprolol [Lopressor TAB] 50 mg PO BID #60 tablet Pantoprazole [Protonix] 40 mg PO QDAY #30 tablet
--- NOTE | 2019-03-25 12:57 | Progress Note ---
Assessment and Plan End Stage Renal Disease on Hemodialysis: -no indication for HD -Fluid restriction of 1 liter per day -Obtain daily weights -Monitor I/O's -Renally dose medications -Assess dialysis needs daily - ok to be discharged from renal standpoint S/P Hyperkalemia: -Low potassium diet Chest pain: -Cardiology onboard Hypertension: -Blood pressures are stable -Monitor BP and adjust medications as needed Subjective Date of service: 03/25/19 Principal diagnosis: HTN; cp Interval history: tolerated HD well yesterday Objective - Vital Signs Vital signs: Vital Signs - 12hr 03/25/19 03:24 Temperature 97.8 F Pulse Rate 91 H Respiratory 16 Rate Blood Pressure 126/80 O2 Sat by Pulse 96 Oximetry - General Appearance General appearance: well-developed, well-nourished EENT: ATNC, PERRL, mucous membranes moist Neck: no JVD, no carotid bruit Respiratory: Present: Clear to Ascultation. Absent: Rales, Ronchi Cardiology: regular, S1S2 Gastrointestinal: normoactive bowel sounds Integumentary: no rash, warm and dry Neurologic: no focal deficit, no asterixis, alert and oriented x3 Musculoskeletal: other (no edema in BLE) Psychiatric: mood/affect appropriate, cooperative - Lab 03/23/19 07:56 03/25/19 04:44 Most recent lab results Calcium 10.5 mg/dL (8.4-10.2) H 03/25/19 04:44 Phosphorus 5.80 mg/dL (2.5-4.5) H 03/25/19 04:44 Medications & Allergies - Medications Allergies/Adverse Reactions: Allergies hydrocodone bitartrate [From Vicodin] Allergy (Verified 03/22/19 15:37) Itching oxycodone Allergy (Verified 03/23/19 00:35) Itching tramadol Allergy (Verified 03/22/19 15:37) Hives metoclopramide HCl [From Reglan] Adverse Reaction (Verified 03/22/19 15:37) Unknown Home Medications: Home Medications Medication Instructions Recorded Confirmed Last Taken Type Sevelamer HCl [Renagel] 800 mg PO TIDWM #30 tablet 06/24/15 12/17/18 1 Day Ago Rx ~07/18/17 Metoprolol [Lopressor TAB] 50 mg PO BID #60 tablet 03/24/19 Unknown Rx Pantoprazole [Protonix] 40 mg PO QDAY #30 tablet 03/24/19 Unknown Rx Pravastatin [Pravachol] 20 mg PO QHS #30 tablet 03/24/19 Unknown Rx Active Medications: Generic Name Dose Route Start Last Admin Trade Name Freq PRN Reason Stop Dose Admin Acetaminophen 650 mg 03/23/19 13:43 Tylenol PO Q4H PRN Pain MILD(1-3)/Fever >100.5/MEJIA Acetaminophen/Hydrocodone Bitart 1 each 03/24/19 22:16 03/25/19 02:42 Hancock 5/325 PO 1 each Q6H PRN Administration Pain, Moderate (4-6) Aspirin 325 mg 03/23/19 10:00 03/25/19 09:29 Aspirin PO 325 mg QDAY ADIA Administration Bisacodyl 10 mg 03/22/19 22:05 Dulcolax OK QDAY PRN Constipation Hydralazine HCl 5 mg 03/22/19 23:08 03/23/19 09:46 Apresoline IV 5 mg Q6H PRN Administration Hypertension Magnesium Hydroxide 30 ml 03/22/19 22:05 Milk Of Magnesia PO Q4H PRN Constipation Metoprolol Tartrate 50 mg 03/23/19 13:00 03/25/19 09:29 Lopressor PO 04/02/19 12:59 50 mg BID ADIA Administration Ondansetron HCl 4 mg 03/22/19 22:05 03/23/19 11:50 Zofran IV 4 mg Q4H PRN Administration Nausea And Vomiting Pravastatin Sodium 20 mg 03/23/19 22:00 03/24/19 21:55 Pravachol PO 20 mg QHS ADIA Administration Sevelamer Carbonate 800 mg 03/25/19 08:00 03/25/19 12:08 Renvela PO 800 mg TIDWM ADIA Administration Sodium Chloride 10 ml 03/22/19 22:05 03/25/19 09:29 Sodium Chloride Flush Syringe 10 Ml IV 10 ml PRN PRN Administration LINE FLUSH Sodium Polystyrene Sulfonate 15 gm 03/25/19 14:00 Kionex PO 03/25/19 14:01 ONCE ONE
[2019-03-25] MEDS ORDERED: KIONEX PO ONE (14:00)
== END 2019-03-25 14:58 | disposition home or self-care (01) | DRG 64 ==
LOC: ED 15:36 → 4A 17:55
PROVIDERS: ADMIT Internal Medicine; ATTEND Internal Medicine
PROC: 5A1D70Z Performance of Urinary Filtration, Intermittent, Less than 6 Hours Per Day (ICD-10-PCS; principal; 2019-03-22)
PROC: 5A1D70Z Performance of Urinary Filtration, Intermittent, Less than 6 Hours Per Day (ICD-10-PCS; 2019-03-23)
PROC: 5A1D70Z Performance of Urinary Filtration, Intermittent, Less than 6 Hours Per Day (ICD-10-PCS; 2019-03-24)
DX: I63.9 Cerebral infarction, unspecified (principal); N18.6 End stage renal disease; G83.14 Monoplegia of lower limb affecting left nondominant side; E87.5 Hyperkalemia; I13.2 Hypertensive heart and chronic kidney disease with heart failure and with stage 5 chronic kidney disease, or end stage renal disease; Z96.643 Presence of artificial hip joint, bilateral; D63.1 Anemia in chronic kidney disease; I50.32 Chronic diastolic (congestive) heart failure; M32.9 Systemic lupus erythematosus, unspecified; I25.10 Atherosclerotic heart disease of native coronary artery without angina pectoris; Z99.2 Dependence on renal dialysis; Z95.828 Presence of other vascular implants and grafts; Z88.8 Allergy status to other drugs, medicaments and biological substances; I25.2 Old myocardial infarction; Z90.49 Acquired absence of other specified parts of digestive tract; Z83.3 Family history of diabetes mellitus; Z82.49 Family history of ischemic heart disease and other diseases of the circulatory system; Z95.5 Presence of coronary angioplasty implant and graft
CPT/HCPCS: 36415; 70450; 71045; 80048; 80061; 82550; 82553; 82962; 84100; 84132; 84484; 85025; 93005; 93010; 93306; 96374; 96375; G0378; A9270-GY; J0360; J0610; J1200; J1815; J2270; J2405; J7030

== ENCOUNTER 2019-04-20 20:51 | Emergency (ER) | payer MEDICAID ==
[2019-04-20 21:14] VITALS: BP 172/103
== END 2019-04-20 22:50 | disposition left against medical advice (07) ==
LOC: ED 20:51
DX: R07.89 Other chest pain (principal); R20.2 Paresthesia of skin; R20.0 Anesthesia of skin; Z53.21 Procedure and treatment not carried out due to patient leaving prior to being seen by health care provider
CPT/HCPCS: 93005; 93010

== ENCOUNTER 2019-07-03 22:48 | Emergency (ER) | payer MEDICAID ==
[2019-07-03] MEDS ORDERED: ASPIRIN PO ONE (23:55)
[2019-07-04 00:10] LABS: Basophils # (Auto) 0.1 K/mm3 (0.0-0.1); Basophils % (Auto) 0.8 % (0.0-1.8); Eosinophils # (Auto) 0.1 K/mm3 (0.0-0.4); Eosinophils % (Auto) 0.8 % (0.0-4.3); Hemoglobin 12.1 gm/dl (10.1-14.3); Lymphocytes # (Auto) 1.3 K/mm3 (1.2-5.4); Lymphocytes % (Auto) 19.2 % (13.4-35.0); Mean Corpuscular HGB Conc 33 % (30-34); Mean Corpuscular Volume 98 fl (79-97); Monocytes # (Auto) 0.7 K/mm3 (0.0-0.8); Monocytes % (Auto) 9.7 % (0.0-7.3); Platelet Count 233 K/mm3 (140-440); Red Blood Count 3.78 M/mm3 (3.65-5.03)
[2019-07-04 00:31] LABS: BUN/Creatinine Ratio 2; Blood Urea Nitrogen 10 mg/dL (7-17); Calcium 9.8 mg/dL (8.4-10.2); Hemolysis Index 45
--- NOTE | 2019-07-04 01:31 | XRay Report ---
CHEST 1 VIEW INDICATION: Chest Pain. COMPARISON: 03/22/2019. FINDINGS: Support devices: Right IJ dialysis catheter has its tip over the distal superior vena cava. Negative for pneumothorax. Heart: Within normal limits. Lungs/Pleura: No acute air space or interstitial disease. Additional findings: None. IMPRESSION: No acute abnormality. Signer Name: Chao Maldonado MD Signed: 07/04/2019 1:26 AM Workstation Name: [id number]
[2019-07-04] MEDS ORDERED: ZOFRAN ONE (02:06)
[2019-07-04] MEDS ORDERED: MORPHINE ONE (02:06)
[2019-07-04] MEDS ORDERED: ZOFRAN IV ONE (02:17)
[2019-07-04] MEDS ORDERED: MORPHINE IV ONE (02:17)
[2019-07-04 03:21] VITALS: BP 155/106
--- NOTE | 2019-07-04 03:46 | Emergency Department Report ---
ED Chest Pain HPI - General Chief Complaint: Chest Pain Stated Complaint: CHEST PAIN/LOWER BACK PAIN Time Seen by Provider: 07/04/19 00:36 Source: patient Mode of arrival: Ambulatory Limitations: No Limitations - History of Present Illness Initial Comments: Patient is a 34 sure of The female with past medical history of end-stage renal disease and coronary disease status post 1 stent who is presenting with chest pain. Patient states that for the past 2 days she's had intermittent chest discomfort. She states as a sharp pain that lasts for several seconds and then resolves. Patient states she has had some nausea and vomiting associated with this pain. Patient denies shortness of breath cough fevers chills nausea vomiting or diaphoresis. Patient did have dialysis yesterday. Severity scale (0 -10): 5 - Related Data Previous Rx's Medication Instructions Recorded Last Taken Type Sevelamer HCl [Renagel] 800 mg PO TIDWM #30 tablet 06/24/15 1 Day Ago Rx ~07/18/17 Metoprolol [Lopressor TAB] 50 mg PO BID #60 tablet 03/24/19 Unknown Rx Pantoprazole [Protonix] 40 mg PO QDAY #30 tablet 03/24/19 Unknown Rx Pravastatin [Pravachol] 20 mg PO QHS #30 tablet 03/24/19 Unknown Rx Ondansetron [Zofran Odt] 4 mg PO Q8HR #10 tab.rapdis 07/04/19 Unknown Rx Pantoprazole [Protonix] 40 mg PO QDAY #30 tablet 07/04/19 Unknown Rx Allergies Allergy/AdvReac Type Severity Reaction Status Date / Time hydrocodone bitartrate Allergy Itching Verified 03/22/19 15:37 [From Vicodin] oxycodone Allergy Itching Verified 03/23/19 00:35 tramadol Allergy Hives Verified 03/22/19 15:37 metoclopramide HCl AdvReac Unknown Verified 03/22/19 15:37 [From Reglan] Heart Score - HEART Score History: Slightly suspicious EKG: Non-specific Age: < 45 Risk factors: > 3 risk factors or hx of atherosclerotic disease Troponin: < normal limit HEART Score: 3 ED Review of Systems ROS: Stated complaint: CHEST PAIN/LOWER BACK PAIN Other details as noted in HPI Comment: All other systems reviewed and negative ED Past Medical Hx - Past Medical History Previous Medical History?: Yes Hx Hypertension: Yes (EF NORMAL) Hx Heart Attack/AMI: Yes Hx Congestive Heart Failure: Yes Hx Diabetes: No Hx Liver Disease: No Hx Renal Disease: Yes (hemodialysis -) Hx Sickle Cell Disease: ( ) Hx Arthritis: Yes Hx Seizures: No Hx Asthma: No Hx COPD: No Hx HIV: No Additional medical history: Lupus - Surgical History Past Surgical History?: Yes Hx Coronary Stent: Yes (2011 x1) Hx Cholecystectomy: Yes Additional Surgical History: bilat total hips, right av fistula, - Social History Smoking Status: Never Smoker Substance Use Type: None - Medications Home Medications: Home Medications Medication Instructions Recorded Confirmed Last Taken Type Sevelamer HCl [Renagel] 800 mg PO TIDWM #30 tablet 06/24/15 12/17/18 1 Day Ago Rx ~07/18/17 Metoprolol [Lopressor TAB] 50 mg PO BID #60 tablet 03/24/19 Unknown Rx Pantoprazole [Protonix] 40 mg PO QDAY #30 tablet 03/24/19 Unknown Rx Pravastatin [Pravachol] 20 mg PO QHS #30 tablet 03/24/19 Unknown Rx Ondansetron [Zofran Odt] 4 mg PO Q8HR #10 tab.rapdis 07/04/19 Unknown Rx Pantoprazole [Protonix] 40 mg PO QDAY #30 tablet 07/04/19 Unknown Rx ED Physical Exam - General Limitations: No Limitations General appearance: alert, in no apparent distress - Head Head exam: Present: atraumatic, normocephalic - Eye Eye exam: Present: normal appearance - ENT ENT exam: Present: mucous membranes moist - Neck Neck exam: Present: normal inspection - Respiratory Respiratory exam: Present: normal lung sounds bilaterally. Absent: respiratory distress, wheezes, rales, rhonchi - Cardiovascular Cardiovascular Exam: Present: regular rate, normal rhythm, normal heart sounds. Absent: systolic murmur, diastolic murmur, rubs, gallop - GI/Abdominal GI/Abdominal exam: Present: soft, normal bowel sounds. Absent: distended, tenderness, guarding, rebound - Extremities Exam Extremities exam: Present: normal inspection - Back Exam Back exam: Present: normal inspection - Neurological Exam Neurological exam: Present: alert, oriented X3 - Psychiatric Psychiatric exam: Present: normal affect, normal mood - Skin Skin exam: Present: warm, dry, intact, normal color. Absent: rash ED Course Vital Signs 07/03/19 07/04/19 07/04/19 23:02 00:48 00:52 Temperature 98.6 F 98.2 F Pulse Rate 90 71 Respiratory 20 12 Rate Blood Pressure 109/74 Blood Pressure 142/92 [Left] O2 Sat by Pulse 100 100 100 Oximetry 07/04/19 07/04/19 07/04/19 01:00 01:15 01:31 Temperature Pulse Rate 75 69 74 Respiratory 13 16 19 Rate Blood Pressure 136/94 142/94 144/97 Blood Pressure [Left] O2 Sat by Pulse 98 99 98 Oximetry 07/04/19 07/04/19 07/04/19 01:45 02:00 02:15 Temperature Pulse Rate 70 77 74 Respiratory 17 16 17 Rate Blood Pressure 144/97 151/98 144/97 Blood Pressure [Left] O2 Sat by Pulse 99 100 99 Oximetry 07/04/19 07/04/19 07/04/19 02:30 02:45 03:00 Temperature Pulse Rate 74 72 68 Respiratory 12 13 14 Rate Blood Pressure 163/101 155/106 163/104 Blood Pressure [Left] O2 Sat by Pulse 96 96 95 Oximetry 07/04/19 03:15 Temperature Pulse Rate 69 Respiratory 12 Rate Blood Pressure 155/106 Blood Pressure [Left] O2 Sat by Pulse 100 Oximetry PRADEEP score - Pradeep Score Age > 65: (0) No Aspirin use within the Past 7 Days: (1) Yes 3 or more CAD Risk Factors: (1) Yes 2 or more Angina events in past 24 hrs: (0) No Known CAD with more than 50% Stenosis: (0) No Elevated Cardiac Markers: (1) Yes ST Deviation Greater than 0.5mm: (0) No PRADEEP Score: 3 ED Medical Decision Making - Lab Data Result diagrams: 07/03/19 23:59 07/03/19 23:59 Lab Results 07/03/19 07/03/19 07/03/19 Range/Units 23:59 23:59 23:59 WBC 6.8 (4.5-11.0) K/mm3 RBC 3.78 (3.65-5.03) M/mm3 Hgb 12.1 (10.1-14.3) gm/dl Hct 37.0 (30.3-42.9) % MCV 98 H (79-97) fl MCH 32 (28-32) pg MCHC 33 (30-34) % RDW 17.0 H (13.2-15.2) % Plt Count 233 (140-440) K/mm3 Lymph % (Auto) 19.2 (13.4-35.0) % [place] % (Auto) 9.7 H (0.0-7.3) % Eos % (Auto) 0.8 (0.0-4.3) % Baso % (Auto) 0.8 (0.0-1.8) % Lymph # 1.3 (1.2-5.4) K/mm3 [place] # 0.7 (0.0-0.8) K/mm3 Eos # 0.1 (0.0-0.4) K/mm3 Baso # 0.1 (0.0-0.1) K/mm3 Seg Neutrophils % 69.5 (40.0-70.0) % Seg Neutrophils # 4.7 (1.8-7.7) K/mm3 Sodium 137 (137-145) mmol/L Potassium 3.8 (3.6-5.0) mmol/L Chloride 96.0 L (98-107) mmol/L Carbon Dioxide 26 (22-30) mmol/L Anion Gap 19 mmol/L BUN 10 (7-17) mg/dL Creatinine 4.5 H (0.7-1.2) mg/dL Estimated GFR 13 ml/min BUN/Creatinine Ratio 2 % Glucose 109 H (65-100) mg/dL Calcium 9.8 (8.4-10.2) mg/dL Troponin T < 0.010 (0.00-0.029) ng/mL HCG, Qual Negative (Negative) 07/04/19 Range/Units 02:17 WBC (4.5-11.0) K/mm3 RBC (3.65-5.03) M/mm3 Hgb (10.1-14.3) gm/dl Hct (30.3-42.9) % MCV (79-97) fl MCH (28-32) pg MCHC (30-34) % RDW (13.2-15.2) % Plt Count (140-440) K/mm3 Lymph % (Auto) (13.4-35.0) % [place] % (Auto) (0.0-7.3) % Eos % (Auto) (0.0-4.3) % Baso % (Auto) (0.0-1.8) % Lymph # (1.2-5.4) K/mm3 [place] # (0.0-0.8) K/mm3 Eos # (0.0-0.4) K/mm3 Baso # (0.0-0.1) K/mm3 Seg Neutrophils % (40.0-70.0) % Seg Neutrophils # (1.8-7.7) K/mm3 Sodium (137-145) mmol/L Potassium (3.6-5.0) mmol/L Chloride (98-107) mmol/L Carbon Dioxide (22-30) mmol/L Anion Gap mmol/L BUN (7-17) mg/dL Creatinine (0.7-1.2) mg/dL Estimated GFR ml/min BUN/Creatinine Ratio % Glucose (65-100) mg/dL Calcium (8.4-10.2) mg/dL Troponin T < 0.010 (0.00-0.029) ng/mL HCG, Qual (Negative) - EKG Data -: EKG Interpreted by Nh EKG shows normal: sinus rhythm, axis, intervals, QRS complexes, ST-T waves Rate: normal - EKG Data Interpretation: normal EKG - Radiology Data Radiology results: report reviewed (CXR WNL) - Medical Decision Making Patient is a 34-year-old female who is here secondary to having chest pain for last 2 days. States as a sharp pain that occurs intermittently. It is associated with some nausea and vomiting. Patient's had 2 normal troponins. Patient symptoms are very typical for heart scores low. Patient's because of her history of coronary disease will be referred to cardiology however the patient also be given a GI follow-up as well as this could be peptic ulcer disease. Patient states that she hasn't noticed that the pain is worse if she's not eating. Critical care attestation.: If time is entered above; I have spent that time in minutes in the direct care of this critically ill patient, excluding procedure time. ED Disposition Clinical Impression: ESRD (end stage renal disease) on dialysis, Atypical chest pain, Vomiting Disposition: TO HOME OR SELFCARE Is pt being admited?: No Does the pt Need Aspirin: No Condition: Stable Instructions: Chest Pain (ED) Referrals: [facility] [Provider Group] - 3-5 Days ANNALISE URIAS MD [Staff Physician] - 3-5 Days Time of Disposition: 03:46
== END 2019-07-04 03:54 | disposition home or self-care (01) ==
LOC: ED 22:48
DX: I13.2 Hypertensive heart and chronic kidney disease with heart failure and with stage 5 chronic kidney disease, or end stage renal disease (principal); I50.9 Heart failure, unspecified; N18.6 End stage renal disease; Z99.2 Dependence on renal dialysis; M32.9 Systemic lupus erythematosus, unspecified; M19.90 Unspecified osteoarthritis, unspecified site; Z90.49 Acquired absence of other specified parts of digestive tract; Z95.1 Presence of aortocoronary bypass graft; Z79.899 Other long term (current) drug therapy; Z88.8 Allergy status to other drugs, medicaments and biological substances; Z88.5 Allergy status to narcotic agent
CPT/HCPCS: 36415; 71045; 80048; 84484; 84703; 85025; 93005; 93010; 96374; 96375; 99284; J2270; J2405

== ENCOUNTER 2019-12-07 19:51 | Observation (INO) | payer MEDICAID ==
[2019-12-07] MEDS ORDERED: ASPIRIN 325 MG TAB PO ONE (21:21)
[2019-12-07 21:57] LABS: Basophils # (Auto) 0.1 K/mm3 (0.0-0.1); Basophils % (Auto) 1.1 % (0.0-1.8); Eosinophils % (Auto) 0.3 % (0.0-4.3); Hematocrit 30.5 % (30.3-42.9); Lymphocytes # (Auto) 1.3 K/mm3 (1.2-5.4); Lymphocytes % (Auto) 15.9 % (13.4-35.0); Mean Corpuscular HGB Conc 33 % (30-34); Mean Corpuscular Volume 98 fl (79-97); Monocytes # (Auto) 0.6 K/mm3 (0.0-0.8); Monocytes % (Auto) 7.5 % (0.0-7.3); Platelet Count 250 K/mm3 (140-440); Red Blood Count 3.12 M/mm3 (3.65-5.03); Red Cell Distribution Width 17.7 % (13.2-15.2)
--- NOTE | 2019-12-07 22:35 | Emergency Department Report ---
ED Chest Pain HPI - General Chief Complaint: Chest Pain Stated Complaint: CHEST PAIN Time Seen by Provider: 12/07/19 22:29 Source: patient Mode of arrival: Ambulatory Limitations: No Limitations - History of Present Illness Initial Comments: Ms. Basurto is a 34 yo female with hx of ESRD on HD, CHF, CAD, SLE who presents with chest pain left sided nondescript moderately severe for 2 days. Persistent at rest. +nausea vomiting shortness of breath. left hand tingling. She also missed dialysis Sunday. MD Complaint: chest pain -: Gradual, days(s) (2) Onset: during rest Pain Location: substernal, left chest Pain Radiation: none Severity: moderate Quality: sharp, dull Consistency: constant Improves With: nothing Worsens With: nothing re: nausea, vomting, dyspnea - Related Data Previous Rx's Medication Instructions Recorded Last Taken Type Sevelamer HCl [Renagel] 800 mg PO TIDWM #30 tablet 06/24/15 1 Day Ago Rx ~07/18/17 Metoprolol [Lopressor TAB] 50 mg PO BID #60 tablet 03/24/19 Unknown Rx Pantoprazole [Protonix] 40 mg PO QDAY #30 tablet 03/24/19 Unknown Rx Pravastatin [Pravachol] 20 mg PO QHS #30 tablet 03/24/19 Unknown Rx Ondansetron [Zofran Odt] 4 mg PO Q8HR #10 tab.rapdis 07/04/19 Unknown Rx Pantoprazole [Protonix] 40 mg PO QDAY #30 tablet 07/04/19 Unknown Rx Allergies Allergy/AdvReac Type Severity Reaction Status Date / Time acetaminophen [From Percocet] Allergy Itching Verified 12/07/19 20:32 hydrocodone bitartrate Allergy Itching Verified 03/22/19 15:37 [From Vicodin] morphine Allergy Itching Verified 12/07/19 20:32 oxycodone Allergy Itching Verified 03/23/19 00:35 tramadol Allergy Hives Verified 03/22/19 15:37 metoclopramide HCl AdvReac Unknown Verified 03/22/19 15:37 [From Reglan] Heart Score - HEART Score History: Slightly suspicious EKG: Non-specific Age: < 45 Risk factors: 1-2 risk factors Troponin: 1-3x normal limit HEART Score: 3 ED Review of Systems ROS: Stated complaint: CHEST PAIN Other details as noted in HPI Comment: All other systems reviewed and negative Constitutional: denies: fever, malaise Respiratory: shortness of breath Cardiovascular: denies: chest pain Gastrointestinal: nausea, vomiting ED Past Medical Hx - Past Medical History Previous Medical History?: Yes Hx Hypertension: Yes (EF NORMAL) Hx Heart Attack/AMI: Yes (2 stents on Plavix&ASA) Hx Congestive Heart Failure: Yes Hx Diabetes: No Hx Liver Disease: No Hx Renal Disease: Yes (hemodialysis ) Hx Sickle Cell Disease: ( ) Hx Arthritis: Yes Hx Seizures: No Hx Asthma: No Hx COPD: No Hx HIV: No Additional medical history: Lupus, 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 - Surgical History Past Surgical History?: Yes Hx Coronary Stent: Yes (2011 x1) Hx Cholecystectomy: Yes Additional Surgical History: bilat total hips, right av fistula, , Dialysis chest access - Social History Smoking Status: Never Smoker Substance Use Type: None - Medications Home Medications: Home Medications Medication Instructions Recorded Confirmed Last Taken Type Sevelamer HCl [Renagel] 800 mg PO TIDWM #30 tablet 06/24/15 12/17/18 1 Day Ago Rx ~07/18/17 Metoprolol [Lopressor TAB] 50 mg PO BID #60 tablet 03/24/19 Unknown Rx Pantoprazole [Protonix] 40 mg PO QDAY #30 tablet 03/24/19 Unknown Rx Pravastatin [Pravachol] 20 mg PO QHS #30 tablet 03/24/19 Unknown Rx Ondansetron [Zofran Odt] 4 mg PO Q8HR #10 tab.rapdis 07/04/19 Unknown Rx Pantoprazole [Protonix] 40 mg PO QDAY #30 tablet 07/04/19 Unknown Rx ED Physical Exam - General Limitations: No Limitations General appearance: alert, in no apparent distress, other (well appearing seems comfortable) - Head Head exam: Present: atraumatic, normocephalic - Eye Eye exam: Present: normal appearance - ENT ENT exam: Present: mucous membranes moist - Neck Neck exam: Present: normal inspection, full ROM - Respiratory Respiratory exam: Present: normal lung sounds bilaterally. Absent: respiratory distress, wheezes, rales, rhonchi - Cardiovascular Cardiovascular Exam: Present: regular rate, normal rhythm, normal heart sounds. Absent: systolic murmur, diastolic murmur, rubs, gallop - GI/Abdominal GI/Abdominal exam: Present: soft, normal bowel sounds. Absent: distended, tenderness, guarding, rebound - Extremities Exam Extremities exam: Present: normal inspection - Neurological Exam Neurological exam: Present: alert, oriented X3 - Psychiatric Psychiatric exam: Present: normal affect, normal mood - Skin Skin exam: Present: warm, dry, intact, normal color. Absent: rash ED Course Vital Signs 12/07/19 20:25 Temperature 98.4 F Pulse Rate 77 Respiratory 18 Rate Blood Pressure 209/123 O2 Sat by Pulse 100 Oximetry PRADEEP score - Pradeep Score Age > 65: (0) No Aspirin use within the Past 7 Days: (1) Yes 3 or more CAD Risk Factors: (1) Yes 2 or more Angina events in past 24 hrs: (0) No Known CAD with more than 50% Stenosis: (0) No Elevated Cardiac Markers: (1) Yes ST Deviation Greater than 0.5mm: (0) No PRADEEP Score: 3 ED Medical Decision Making - Lab Data Result diagrams: 12/07/19 21:25 12/07/19 21:25 Laboratory Results - last 24 hr 12/07/19 12/07/19 12/07/19 21:25 21:25 21:25 WBC 8.1 RBC 3.12 L Hgb 10.0 L Hct 30.5 MCV 98 H MCH 32 MCHC 33 RDW 17.7 H Plt Count 250 Lymph % (Auto) 15.9 [place] % (Auto) 7.5 H Eos % (Auto) 0.3 Baso % (Auto) 1.1 Lymph # 1.3 Cecil # 0.6 Eos # 0.0 Baso # 0.1 Seg Neutrophils % 75.2 H Seg Neutrophils # 6.1 Sodium 137 Potassium 7.0 H* Chloride 98.4 Carbon Dioxide 19 L Anion Gap 27 BUN 80 H Creatinine 11.7 H Estimated GFR 4 BUN/Creatinine Ratio 7 Glucose 112 H Calcium 9.0 Troponin T 0.023 HCG, Qual Negative - EKG Data EKG shows normal: sinus rhythm, axis, intervals, QRS complexes, ST-T waves Rate: normal - EKG Data Interpretation: normal EKG - Radiology Data Radiology results: report reviewed cxr: vascath at SVC, no infilitrate no pulmonary edema - Medical Decision Making 1. chest pain: normal EKG, without tachycardia or hypoxia 2. esrd on HD missed dialysis, hyperkalemia, Dr. 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 ED Disposition Clinical Impression: Recurrent chest pain, SLE (systemic lupus erythematosus related syndrome), Hx of coronary artery disease, ESRD (end stage renal disease) on dialysis, Hyperkalemia Disposition: OP ADMIT IP TO THIS HOSP Is pt being admited?: Yes Does the pt Need Aspirin: No Condition: Stable
[2019-12-07] MEDS ORDERED: INSULIN REGULAR, HUMAN 100 UNITS/1 ML IV ONE (22:39)
[2019-12-07] MEDS ORDERED: DEXTROSE 50% IN WATER (25GM) 50 ML SYRINGE IV ONE (22:39)
[2019-12-07] MEDS ORDERED: SODIUM BICARB 8.4% 50 MEQ/50 ML SYRINGE IV ONE (22:39)
[2019-12-07] MEDS ORDERED: CALCIUM GLUCONATE 2,000 MG in SODIUM CHLORIDE 0.9% 100 ML IV ONE (22:39)
--- NOTE | 2019-12-07 22:43 | XRay Report ---
CHEST - 1 VIEW INDICATION: Chest Pain COMPARISON: 07/04/2019 FINDINGS: Support devices: Stable support device positioning. Heart: Stable cardiomediastinal silhouette. Lungs/pleura: Clear lungs. Additional findings: None. IMPRESSION: No acute abnormality. Signer Name: Alfred Griffin MD Signed: 12/07/2019 10:39 PM Workstation Name: [id number]
[2019-12-07] MEDS ORDERED: SODIUM POLYSTYRENE 15 GM/60 ML ORAL LIQD PO ONE (22:46)
[2019-12-07] MEDS ORDERED: ONDANSETRON 4 MG/2 ML INJ IV ONE (23:05)
[2019-12-07] MEDS ORDERED: HYDROmorphone 1 MG/1 ML INJ IV ONE (23:05)
[2019-12-07] MEDS ORDERED: diphenhydrAMINE 50 MG/ML VIAL IV ONE (23:05)
--- NOTE | 2019-12-07 23:37 | History and Physical Report ---
History of Present Illness History of present illness: 34-year-old woman with a history of CAD, status post stent in September 2019, hypertension, CHF, hypertension, lupus, end-stage renal disease on dialysis, Sunday, and Sunday came to the emergency room with complaints of chest pain in the left chest area which she describes as a sharp pain, intermittent for about 1 minute, intensity 5/10, radiating to left arm, she cannot identify exacerbating factor, relieving with pain medications. She admits to nausea, vomiting, shortness of breath, no diaphoresis or palpitation. Patient is being admitted for severe hyperkalemia, she missed her dialysis on Sunday. Cocktail for hyperkalemia was given in the emergency. Patient is admitted for dialysis, hyperkalemia Review of systems Constitutional: no fever, no chills, no weight loss Ears, eyes, nose, mouth and throat: no nasal congestion, no nasal discharge, no sinus pressure, no vision change, no red eye. Neck: No neck pain or rigidity. Cardiovascular: no orthopnea, palpitations, no leg swelling Respiratory: No cough, no congestion, no wheezing Gastrointestinal: abdominal pain, hematochezia Genitourinary : no dysuria, frequency , no hematuria Musculoskeletal: no joint swelling or muscle ache Integumentary: no rash, no pruritis Neurological: no parathesias, no numbness, no focal weakness Endocrine: no cold or heat intolerance, no polyuria or polydipsia Hematologic/Lymphatic: no easy bruising, no easy bleeding, no gland swelling Allergic/Immunologic: no urticaria, no angioedema. PAST MEDICAL HISTORY: CAD, hypertension, CHF, hypertension, lupus, end-stage renal disease on dialysis PAST SURGICAL HISTORY: AV fistula, hip replacement 4, cholecystectomy, hernia repair, SOCIAL HISTORY: Denies alcohol, tobacco, drugs FAMILY HISTORY: Hypertension, diabetes Medications and Allergies Allergies Allergy/AdvReac Type Severity Reaction Status Date / Time acetaminophen [From Percocet] Allergy Itching Verified 12/07/19 20:32 hydrocodone bitartrate Allergy Itching Verified 03/22/19 15:37 [From Vicodin] morphine Allergy Itching Verified 12/07/19 20:32 oxycodone Allergy Itching Verified 03/23/19 00:35 tramadol Allergy Hives Verified 03/22/19 15:37 metoclopramide HCl AdvReac Unknown Verified 03/22/19 15:37 [facility] Home Medications Medication Instructions Recorded Confirmed Last Taken Type Sevelamer HCl [Renagel] 800 mg PO TIDWM #30 tablet 06/24/15 12/08/19 1 Day Ago Rx ~07/18/17 Ondansetron [Zofran ODT TAB] 4 mg PO Q8HR #10 tab.rapdis 07/04/19 12/08/19 Unknown Rx Aspirin 81 mg PO DAILY 12/08/19 12/08/19 Unknown History Coreg 25 mg PO BID 12/08/19 12/08/19 Unknown History Pepcid 20 mg PO DAILY 12/08/19 12/08/19 Unknown History Plaquenil 200 mg PO BID 12/08/19 12/08/19 Unknown History Plavix 75 mg PO DAILY 12/08/19 12/08/19 Unknown History Active Meds: Active Medications Enoxaparin Sodium (Enoxaparin) 30 mg SUB-Q QDAY ADIA Exam - Physical Exam Narrative exam: Gen. appearance: Patient lying in bed, no apparent distress HEENT: Normocephalic, atraumatic, pupils equally round and reactive to light, extraocular movement intact, and no sclericterus,. No JVD or thyromegaly or nodule,neck supple, no carotid bruit ,mucous membranes dry, no exudate or chris thema Heart: S1, S2, regular rate and rhythm Lungs: Clear to auscultation bilaterally, breathing comfortable Abdomen: Positive bowel sounds, nontender, nondistended, no organomegaly Extremity: No edema, cyanosis, clubbing Skin: No rash, nodules, warm, dry Neuro: Oriented 3, cranial nerves II-12 intact, speech is fluent, motor sensory intact - Constitutional Vitals: Temp Pulse Resp BP Pulse Ox 98.4 F 73 16 174/105 100 12/07/19 20:25 12/07/19 22:45 12/07/19 22:45 12/07/19 22:45 12/07/19 22:45 Results - Labs CBC & Chem 7: 12/09/19 06:01 12/09/19 06:01 Labs: Abnormal lab results 12/07/19 12/07/19 Range/Units 21:25 21:25 RBC 3.12 L (3.65-5.03) M/mm3 Hgb 10.0 L (10.1-14.3) gm/dl MCV 98 H (79-97) fl RDW 17.7 H (13.2-15.2) % [place] % (Auto) 7.5 H (0.0-7.3) % Seg Neutrophils % 75.2 H (40.0-70.0) % Potassium 7.0 H* (3.6-5.0) mmol/L Carbon Dioxide 19 L (22-30) mmol/L BUN 80 H (7-17) mg/dL Creatinine 11.7 H (0.7-1.2) mg/dL Glucose 112 H (65-100) mg/dL - Imaging and Cardiology EKG: image reviewed Chest x-ray: report reviewed Assessment and Plan Assessment Severe Hyperkalemia/ESERD, missexd HD Status post hyperkalemia cocktail, follow potassium level Renal was consulted to see the patient atypical chest pain, acute on chronic/ CAD Check cardiac enzymes, status post recent stenting September Consult cardiology, continue outpatient medications Hypertension, uncontrolled Continue outpatient medications Add IV hydralazine as needed for blood pressure control Lupus, stable CHF, stable
[2019-12-07] MEDS ORDERED: ONDANSETRON 4 MG/2 ML INJ IV PRN (23:45)
[2019-12-08] MEDS ORDERED: hydrALAZINE 20 MG/1 ML INJ IV PRN (05:22)
[2019-12-08] MEDS: HYDROmorphone 1 MG/1 ML INJ IV PRN ×4 (06:04→22:15)
[2019-12-08 07:49] LABS: Basophils # (Auto) 0.1 K/mm3 (0.0-0.1); Basophils % (Auto) 1.3 % (0.0-1.8); Eosinophils # (Auto) 0.1 K/mm3 (0.0-0.4); Eosinophils % (Auto) 0.7 % (0.0-4.3); Hematocrit 29.1 % (30.3-42.9); Hemoglobin 9.7 gm/dl (10.1-14.3); Lymphocytes # (Auto) 2.4 K/mm3 (1.2-5.4); Lymphocytes % (Auto) 24.4 % (13.4-35.0); Mean Corpuscular HGB Conc 33 % (30-34); Mean Corpuscular Volume 97 fl (79-97); Monocytes # (Auto) 0.9 K/mm3 (0.0-0.8); Monocytes % (Auto) 9.2 % (0.0-7.3); Platelet Count 250 K/mm3 (140-440); Red Blood Count 2.99 M/mm3 (3.65-5.03); Red Cell Distribution Width 17.9 % (13.2-15.2)
[2019-12-08 08:00] LABS: Creatine Kinase MB 1.5 ng/mL (0.0-4.0)
[2019-12-08] MEDS ORDERED: NON-FORMULARY EACH (Sevelamer Hcl [Renagel] 800 MG) PO SCH (08:00)
[2019-12-08 08:02] LABS: Creatine Kinase MB 1.6 ng/mL (0.0-4.0)
[2019-12-08] MEDS ORDERED: SODIUM CHLORIDE 0.9% 100 ML IV PRN ×2 (08:34→11:02)
[2019-12-08] MEDS: HYDROXYCHLOROQUINE 200 MG TAB PO SCH ×2 (09:11→22:15)
[2019-12-08] MEDS: CLOPIDOGREL 75 MG TAB PO SCH (09:11)
[2019-12-08] MEDS: SEVELAMER CARBONATE 800 MG TAB PO SCH ×3 (09:11→17:34)
[2019-12-08] MEDS: carvediloL 25 MG TAB PO SCH ×2 (09:11→22:14)
[2019-12-08] MEDS: ENOXAPARIN 30 MG/0.3 ML INJ SUB-Q SCH (09:12)
[2019-12-08] MEDS: ASPIRIN 81 MG TAB CHEW PO SCH (09:12)
[2019-12-08] MEDS ORDERED: NON-FORMULARY EACH (Aspirin 81 MG) PO SCH (10:00)
[2019-12-08] MEDS ORDERED: NON-FORMULARY EACH (Plavix 75 MG) PO SCH (10:00)
[2019-12-08] MEDS ORDERED: NON-FORMULARY EACH (Coreg 25 MG) PO SCH (10:00)
[2019-12-08] MEDS ORDERED: PLAQUENIL 200 MG PO SCH (10:00)
--- NOTE | 2019-12-08 10:49 | Consultation ---
History of Present Illness - Reason for Consult acute renal failure - History of Present Illness 34-year-old lady with history of lupus and end-stage renal disease on hemodialysis Sunday admitted with complaints of missed dialysis hyperkalemia. Patient admits to shortness of breath is 3.5 kgs over her dry weightshe presents with complaint of chest pain described as sharp in central chest region associated shortness of breath nausea vomiting denies any fevers or chills she has had previous AV access is Clotted currently has a right IJ PermCath Medications and Allergies Allergies Allergy/AdvReac Type Severity Reaction Status Date / Time acetaminophen [From Percocet] Allergy Itching Verified 12/07/19 20:32 hydrocodone bitartrate Allergy Itching Verified 03/22/19 15:37 [From Vicodin] morphine Allergy Itching Verified 12/07/19 20:32 oxycodone Allergy Itching Verified 03/23/19 00:35 tramadol Allergy Hives Verified 03/22/19 15:37 metoclopramide HCl AdvReac Unknown Verified 03/22/19 15:37 [From Reglan] Home Medications Medication Instructions Recorded Confirmed Last Taken Type Sevelamer HCl [Renagel] 800 mg PO TIDWM #30 tablet 06/24/15 12/08/19 1 Day Ago Rx ~07/18/17 Ondansetron [Zofran Odt] 4 mg PO Q8HR #10 tab.rapdis 07/04/19 12/08/19 Unknown Rx Aspirin 81 mg PO DAILY 12/08/19 12/08/19 Unknown History Coreg 25 mg PO BID 12/08/19 12/08/19 Unknown History Pepcid 20 mg PO DAILY 12/08/19 12/08/19 Unknown History Plaquenil 200 mg PO BID 12/08/19 12/08/19 Unknown History Plavix 75 mg PO DAILY 12/08/19 12/08/19 Unknown History Active Meds: Active Medications Aspirin (Baby Aspirin) 81 mg PO DAILY [facility] Last Admin: 12/08/19 09:12 Dose: 81 mg Documented by: Carvedilol (Coreg) 25 mg PO BID [facility] Last Admin: 12/08/19 09:11 Dose: 25 mg Documented by: Clopidogrel Bisulfate (Plavix) 75 mg PO DAILY [facility] Last Admin: 12/08/19 09:11 Dose: 75 mg Documented by: Enoxaparin Sodium (Enoxaparin) 30 mg SUB-Q QDAY [facility] Last Admin: 12/08/19 09:12 Dose: 30 mg Documented by: Hydralazine HCl (Apresoline) 5 mg IV Q6H PRN PRN Reason: Hypertension Hydromorphone HCl (Dilaudid) 0.25 mg IV Q4H PRN PRN Reason: Pain, Moderate (4-6) Last Admin: 12/08/19 06:04 Dose: 0.25 mg Documented by: Hydroxychloroquine Sulfate (Plaquenil) 200 mg PO BID [facility] Last Admin: 12/08/19 09:11 Dose: 200 mg Documented by: Sodium Chloride (Nacl 0.9%) 100 mls @ 999 mls/hr IV JOSEPH PRN PRN Reason: Hypotension Ondansetron HCl (Zofran) 4 mg IV Q8H PRN PRN Reason: Nausea And Vomiting Sevelamer Carbonate (Renvela) 800 mg PO TIDWM [facility] Last Admin: 12/08/19 09:11 Dose: 800 mg Documented by: Sodium Chloride (Sodium Chloride Flush Syringe 10 Ml) 10 ml IV BID [facility] Last Admin: 12/08/19 09:12 Dose: 10 ml Documented by: Sodium Chloride (Sodium Chloride Flush Syringe 10 Ml) 10 ml IV PRN PRN PRN Reason: LINE FLUSH Review of Systems Constitutional: no weight loss, no weight gain Ears, nose, mouth and throat: no deferred, no ear pain, no ear discharge Breasts: no deferred, no change in shape Cardiovascular: dyspnea on exertion, paroxysmal nocturnal dyspnea, no chest pain, no orthopnea, no palpitations Respiratory: cough Genitourinary Female: no dyspareunia, no dysmenorrhea Menstruation: no currently menstrual Rectal: no pain, no incontinence Musculoskeletal: no neck stiffness Integumentary: no deferred, no rash, no pruritis Neurological: no head injury, no transient paralysis Psychiatric: no anxiety, no memory loss, no change in sleep habits Endocrine: no cold intolerance, no heat intolerance Hematologic/Lymphatic: no easy bruising Exam - Vital Signs Vital signs: Vital Signs Temp Pulse Resp BP Pulse Ox 98.4 F 77 18 209/123 100 12/07/19 20:25 12/07/19 20:25 12/07/19 20:25 12/07/19 20:25 12/07/19 20:25 - General Appearance General appearance: well-developed, well-nourished EENT: ATNC, PERRL Neck: Present: neck supple Respiratory: Clear to Ascultation Heart: regular, S1S2 Gastrointestinal: Present: normal, normoactive bowel sounds Integumentary: no rash Neurologic: alert and oriented x3, CN 3-12 intact Musculoskeletal: Present: deferred Psychiatric: mood/affect appropriate Results - Lab Results 12/08/19 06:39 12/08/19 06:39 Most recent lab results Calcium 9.0 mg/dL (8.4-10.2) 12/08/19 06:39 - Image Kidney/bladder ultrasound: other (I reviewed chest x-ray with pulmonary edema) Assessment and Plan - Patient Problems (1) Recurrent chest pain Current Visit: Yes Status: Acute Plan to address problem: recurrent chest Pain in the setting of lupus / also rule out acute coronary events (2) SLE (systemic lupus erythematosus related syndrome) Current Visit: Yes Status: Acute Plan to address problem: systemic lupus Continue home meds admitted with chest pain (3) ESRD (end stage renal disease) on dialysis Current Visit: Yes Status: Chronic Plan to address problem: end-stage renal disease on dialysis We'll initiate dialysis Ultrafiltration as tolerated (4) Hypertension Current Visit: No Status: Chronic Qualifiers: Hypertension type: unspecified Qualified Code(s): I10 - Essential (primary) hypertension Plan to address problem: hypertension uncontrolled We'll initiate dialysis continue blood pressure medications (5) Hyperkalemia Current Visit: Yes Status: Acute Plan to address problem: hyperkalemia secondary to renal failure will initiate dialysis
[2019-12-08] MEDS ORDERED: diphenhydrAMINE 50 MG/ML VIAL ONE (10:58)
[2019-12-08] MEDS ORDERED: diphenhydrAMINE 50 MG/ML VIAL IV SCH (11:00)
--- NOTE | 2019-12-08 13:22 | Consultation ---
History of Present Illness Consult date: 12/08/19 Requesting physician: MILAGROS HERNANDEZ Consult reason: chest pain History of present illness: The patient is a 34 year old female with a history of CAD s/p PCI, HTN, ESRD on HD, lupus, recurrent atypical chest pain, and noncompliance. She presented with complaints of nausea, vomiting, SOB and chest pain for a few days prior to arrival. She describes her chest pain as a left-sided intermittent sharp pain. Pt admits that she missed dialysis on Sunday. Following arrival to ED, she was found to have hypertensive emergency and severe hyperkalemia. She is currently undergoing HD. Of note, pt was seen here by our group in 03/2019 for evaluation of chest pain and stress test was recommended although pt ultimately declined any further cardiac testing at that time. In 06/2014, she underwent cardiac cath and PCI of 90% mid LAD lesion with a STEVEN at [facility]. Repeat cath in 06/2015 showed patent LAD stent and otherwise normal coronaries. Lexiscan MPI stress test done 01/2018 was negative for ischemia. Echo done 03/2019 showed EF 55-60%, mild LVH, impaired relaxation, negative bubble study. Past History Past Medical History: other (as per HPI) Medications and Allergies Allergies Allergy/AdvReac Type Severity Reaction Status Date / Time acetaminophen [From Percocet] Allergy Itching Verified 12/07/19 20:32 hydrocodone bitartrate Allergy Itching Verified 03/22/19 15:37 [From Vicodin] morphine Allergy Itching Verified 12/07/19 20:32 oxycodone Allergy Itching Verified 03/23/19 00:35 tramadol Allergy Hives Verified 03/22/19 15:37 metoclopramide HCl AdvReac Unknown Verified 03/22/19 15:37 [From Reglan] Home Medications Medication Instructions Recorded Confirmed Last Taken Type Sevelamer HCl [Renagel] 800 mg PO TIDWM #30 tablet 06/24/15 12/08/19 1 Day Ago Rx ~07/18/17 Ondansetron [Zofran Odt] 4 mg PO Q8HR #10 tab.rapdis 07/04/19 12/08/19 Unknown Rx Aspirin 81 mg PO DAILY 12/08/19 12/08/19 Unknown History Coreg 25 mg PO BID 12/08/19 12/08/19 Unknown History Pepcid 20 mg PO DAILY 12/08/19 12/08/19 Unknown History Plaquenil 200 mg PO BID 12/08/19 12/08/19 Unknown History Plavix 75 mg PO DAILY 12/08/19 12/08/19 Unknown History Active Meds: Active Medications Aspirin (Baby Aspirin) [address] [facility] Last Admin: 12/08/19 09:12 Dose: 81 mg Documented by: Carvedilol (Coreg) [address] [facility] Last Admin: 12/08/19 09:11 Dose: 25 mg Documented by: Clopidogrel Bisulfate (Plavix) [address] [facility] Last Admin: 12/08/19 09:11 Dose: 75 mg Documented by: Diphenhydramine HCl (Benadryl) [address] [facility] Stop: 12/08/19 23:00 Last Admin: 12/08/19 12:25 Dose: 25 mg Documented by: Enoxaparin Sodium (Enoxaparin) 30 mg SUB-Q QDAY [facility] Last Admin: 12/08/19 09:12 Dose: 30 mg Documented by: Hydralazine HCl (Apresoline) 5 mg IV Q6H PRN PRN Reason: Hypertension Hydromorphone HCl (Dilaudid) 0.25 mg IV Q4H PRN PRN Reason: Pain, Moderate (4-6) Last Admin: 12/08/19 06:04 Dose: 0.25 mg Documented by: Hydroxychloroquine Sulfate (Plaquenil) [address] [facility] Last Admin: 12/08/19 09:11 Dose: 200 mg Documented by: Sodium Chloride (Nacl 0.9%) 100 mls @ 999 mls/hr IV JOSEPH PRN PRN Reason: Hypotension Ondansetron HCl (Zofran) 4 mg IV Q8H PRN PRN Reason: Nausea And Vomiting Sevelamer Carbonate (Renvela) [address] [facility] Last Admin: 12/08/19 12:30 Dose: Not Given Documented by: Sodium Chloride (Sodium Chloride Flush Syringe 10 Ml) 10 ml IV PRN PRN PRN Reason: LINE FLUSH Review of Systems Constitutional: no fever, no chills, no sweats Ears, nose, mouth and throat: no ear pain, no nose pain, no sinus pressure, no sinus pain Cardiovascular: chest pain, shortness of breath, high blood pressure, no orthopnea, no palpitations, no rapid/irregular heart beat, no edema, no syncope, no lightheadedness Respiratory: shortness of breath, no cough, no congestion, no wheezing, no pain on inspiration Gastrointestinal: nausea, vomiting, no abdominal pain, no diarrhea, no constipation, no change in bowel habits, no hematemesis, no coffee ground emesis Genitourinary Female: no pelvic pain, no flank pain, no dysuria, no urinary frequency, no urgency Musculoskeletal: no neck stiffness, no neck pain, no shooting arm pain, no arm numbness/tingling, no low back pain, no shooting leg pain Integumentary: no rash, no pruritis, no redness, no sores, no wounds Neurological: no head injury, no paralysis, no weakness, no parathesias, no numbness, no tingling, no seizures, no syncope Psychiatric: no anxiety Endocrine: no cold intolerance, no heat intolerance Hematologic/Lymphatic: no easy bruising, no easy bleeding Allergic/Immunologic: no urticaria Physical Examination Vital Signs Temp Pulse Resp BP Pulse Ox 98.4 F 77 18 209/123 100 12/07/19 20:25 12/07/19 20:25 12/07/19 20:25 12/07/19 20:25 12/07/19 20:25 General appearance: no acute distress HEENT: Positive: PERRL, Normocephaly, Mucus Membranes Moist Neck: Positive: neck supple, trachea midline Cardiac: Positive: Reg Rate and Rhythm, S1/S2 Lungs: Positive: Decreased Breath Sounds Neuro: Positive: Grossly Intact Abdomen: Negative: Tender Skin: Negative: Rash Musculoskeletal: No Pain Extremities: Absent: edema Results 12/08/19 06:39 12/08/19 06:39 Cardiac Enzymes 12/08/19 12/08/19 Range/Units 06:39 06:39 CK-MB (CK-2) 1.5 1.6 (0.0-4.0) ng/mL CBC 12/07/19 12/08/19 Range/Units 21:25 06:39 WBC 8.1 9.6 (4.5-11.0) K/mm3 RBC 3.12 L 2.99 L (3.65-5.03) M/mm3 Hgb 10.0 L 9.7 L (10.1-14.3) gm/dl Hct 30.5 29.1 L (30.3-42.9) % Plt Count 250 250 (140-440) K/mm3 Lymph # 1.3 2.4 (1.2-5.4) K/mm3 [place] # 0.6 0.9 H (0.0-0.8) K/mm3 Eos # 0.0 0.1 (0.0-0.4) K/mm3 Baso # 0.1 0.1 (0.0-0.1) K/mm3 Comprehensive Metabolic Panel 12/07/19 12/08/19 Range/Units 21:25 06:39 Sodium 137 142 (137-145) mmol/L Potassium 7.0 H* 6.1 H* (3.6-5.0) mmol/L Chloride 98.4 99.7 (98-107) mmol/L Carbon Dioxide 19 L 19 L (22-30) mmol/L BUN 80 H 89 H (7-17) mg/dL Creatinine 11.7 H 12.0 H (0.7-1.2) mg/dL Glucose 112 H 70 (65-100) mg/dL Calcium 9.0 9.0 (8.4-10.2) mg/dL - Imaging and Cardiology Echo: report reviewed (03/2019 showed EF 55-60%, mild LVH, impaired relaxation, negative bubble study. ) EKG: report reviewed, image reviewed EKG interpretations - Telemetry EKG Rhythm: Sinus Rhythm - EKG Sinus rhythms and dysrhythmias: sinus rhythm Assessment and Plan Sangeeta negative for AMI x several sets, ECG with NAF, chest pain currently re solved. Continue volume optimization and electrolyte management per nephrology. Optimize anti-hypertensive regimen. Consider repeat ischemic evaluation once medically stabilized. The patient has been seen in conjunction with Dr. Everett who agrees with the assessment and plan of care. - Patient Problems (1) Chest pain Current Visit: Yes Status: Acute (2) Hypertensive emergency Current Visit: Yes Status: Acute (3) ESRD needing dialysis Current Visit: Yes Status: Chronic (4) Hyperkalemia Current Visit: Yes Status: Acute (5) CAD (coronary artery disease) Current Visit: Yes Status: Chronic Qualifiers: Coronary Disease-Associated Artery/Lesion type: [place] artery [place] vs. transplanted heart: [place] heart Associated angina: angina presence unsp ecified Qualified Code(s): I25.10 - Atherosclerotic heart disease of [place] coronary artery without angina pectoris (6) Stented coronary artery Current Visit: Yes Status: Chronic (7) SLE (systemic lupus erythematosus related syndrome) Current Visit: Yes Status: Chronic (8) Medical non-compliance Current Visit: Yes Status: Chronic
[2019-12-08 14:00] LABS: Hepatitis B Surface Antigen Non-Reactive (Negative); Hepatitis C Virus Antibody Non-Reactive (NonReactive)
--- NOTE | 2019-12-08 21:29 | Progress Note ---
Assessment and Plan Assessment and plan: 33-year-old woman with a history of CAD, status post stent in September 2019, hypertension, CHF, hypertension, lupus, end-stage renal disease on dialysis, Sunday, and Sunday came to the emergency room with complaints of chest pain in the left chest area which she describes as a sharp pain, in termittent for about 1 minute, intensity 5/10, radiating to left arm, she cannot identify exacerbating factor, relieving with pain medications. She admits to nausea, vomiting, shortness of breath, no diaphoresis or palpitation. Patient is being admitted for severe hyperkalemia, she missed her dialysis on Sunday. Cocktail for hyperkalemia was given in the emergency Volume Overload -From missed dialysis -Await repeat evaluation following dialysis Severe Hyperkalemia/ESERD, missexd HD Status post hyperkalemia cocktail, follow potassium level Renal was consulted to see the patient Hypotension -Revaluate post dialysis -Restart home meds -Anticipate discharge in am atypical chest pain, acute on chronic/ CAD Check cardiac enzymes, status post recent stenting September Consult cardiology, continue outpatient medications Hypertension, uncontrolled Continue outpatient medications Add IV hydralazine as needed for blood pressure control Lupus, stable CHF, stable History Interval history: Patient seen and examined, undergoing dialysis, still states he does not feel well. Hospitalist Physical - Physical exam Narrative exam: Gen. appearance: Patient lying in bed, no apparent distress HEENT: Normocephalic, atraumatic, pupils equally round and reactive to light, extraocular movement intact, and no sclericterus,. No JVD or thyromegaly or no dule,neck supple, no carotid bruit ,mucous membranes dry, no exudate or erythema Heart: S1, S2, regular rate and rhythm Lungs: Clear to auscultation bilaterally, breathing comfortable Abdomen: Positive bowel sounds, nontender, nondistended, no organomegaly Extremity: No edema, cyanosis, clubbing Skin: No rash, nodules, warm, dry Neuro: Oriented 3, cranial nerves II-12 intact, speech is fluent, motor sensory intact - Constitutional Vitals: Temp Pulse Resp BP Pulse Ox 98.2 F 80 20 135/90 98 12/08/19 19:49 12/08/19 19:49 12/08/19 19:49 12/08/19 19:49 12/08/19 19:49 General appearance: Present: no acute distress PRADEEP score - Pradeep Score Age > 65: (0) No Aspirin use within the Past 7 Days: (1) Yes 3 or more CAD Risk Factors: (1) Yes 2 or more Angina events in past 24 hrs: (0) No Known CAD with more than 50% Stenosis: (0) No Elevated Cardiac Markers: (1) Yes ST Deviation Greater than 0.5mm: (0) No PRADEEP Score: 3 Results - Labs CBC & Chem 7: 12/09/19 06:01 12/09/19 06:01 Labs: Laboratory Last Values WBC 9.6 K/mm3 (4.5-11.0) 12/08/19 06:39 RBC 2.99 M/mm3 (3.65-5.03) L 12/08/19 06:39 Hgb 9.7 gm/dl (10.1-14.3) L 12/08/19 06:39 Hct 29.1 % (30.3-42.9) L 12/08/19 06:39 MCV 97 fl (79-97) 12/08/19 06:39 MCH 33 pg (28-32) H 12/08/19 06:39 MCHC 33 % (30-34) 12/08/19 06:39 RDW 17.9 % (13.2-15.2) H 12/08/19 06:39 Plt Count 250 K/mm3 (140-440) 12/08/19 06:39 Lymph % (Auto) 24.4 % (13.4-35.0) 12/08/19 06:39 [place] % (Auto) 9.2 % (0.0-7.3) H 12/08/19 06:39 Eos % (Auto) 0.7 % (0.0-4.3) 12/08/19 06:39 Baso % (Auto) 1.3 % (0.0-1.8) 12/08/19 06:39 Lymph # 2.4 K/mm3 (1.2-5.4) 12/08/19 06:39 [place] # 0.9 K/mm3 (0.0-0.8) H 12/08/19 06:39 Eos # 0.1 K/mm3 (0.0-0.4) 12/08/19 06:39 Baso # 0.1 K/mm3 (0.0-0.1) 12/08/19 06:39 Seg Neutrophils % 64.4 % (40.0-70.0) 12/08/19 06:39 Seg Neutrophils # 6.2 K/mm3 (1.8-7.7) 12/08/19 06:39 Sodium 142 mmol/L (137-145) 12/08/19 06:39 Potassium 6.1 mmol/L (3.6-5.0) H* 12/08/19 06:39 Chloride 99.7 mmol/L (98-107) 12/08/19 06:39 Carbon Dioxide 19 mmol/L (22-30) L 12/08/19 06:39 Anion Gap 29 mmol/L 12/08/19 06:39 BUN 89 mg/dL (7-17) H 12/08/19 06:39 Creatinine 12.0 mg/dL (0.7-1.2) H 12/08/19 06:39 Estimated GFR 4 ml/min 12/08/19 06:39 BUN/Creatinine Ratio 7 % 12/08/19 06:39 Glucose 70 mg/dL (65-100) 12/08/19 06:39 Calcium 9.0 mg/dL (8.4-10.2) 12/08/19 06:39 Total Creatine Kinase 62 units/L (30-135) 12/08/19 06:39 Total Creatine Kinase 63 units/L (30-135) 12/08/19 06:39 CK-MB (CK-2) 1.5 ng/mL (0.0-4.0) 12/08/19 06:39 CK-MB (CK-2) 1.6 ng/mL (0.0-4.0) 12/08/19 06:39 CK-MB (CK-2) Rel Index 2.3 (0-4) 12/08/19 06:39 CK-MB (CK-2) Rel Index 2.5 (0-4) 12/08/19 06:39 Troponin T 0.016 ng/mL (0.00-0.029) 12/08/19 06:39 Troponin T 0.017 ng/mL (0.00-0.029) 12/08/19 06:39 Troponin T 0.020 ng/mL (0.00-0.029) 12/08/19 06:39 Troponin T 0.021 ng/mL (0.00-0.029) 12/08/19 06:39 HCG, Qual Negative (Negative) 12/07/19 21:25 Hepatitis A IgM Ab Non-reactive (NonReactive) 12/08/19 09:43 Hep Bs Antigen Non-reactive (Negative) 12/08/19 09:43 Hep B Core IgM Ab Non-reactive (NonReactive) 12/08/19 09:43 Hepatitis C Antibody Non-reactive (NonReactive) 12/08/19 09:43 Active Medications - Current Medications Current Medications: Generic Name Dose Route Start Last Admin Trade Name Freq PRN Reason Stop Dose Admin Aspirin 81 mg 12/08/19 10:00 12/08/19 09:12 Baby Aspirin PO 81 mg DAILY ADIA Administration Carvedilol 25 mg 12/08/19 10:00 12/08/19 09:11 Coreg PO 25 mg BID ADIA Administration Clopidogrel Bisulfate 75 mg 12/08/19 10:00 12/08/19 09:11 Plavix PO 75 mg DAILY AD[facility] Administration Diphenhydramine HCl 25 mg 12/08/19 11:00 12/08/19 12:25 Benadryl IV 12/08/19 23:00 25 mg JOSEPH ADIA Administration Enoxaparin Sodium 30 mg 12/08/19 10:00 12/08/19 09:12 Enoxaparin SUB-Q 30 mg QDAY AD[facility] Administration Hydralazine HCl 5 mg 12/08/19 05:22 Apresoline IV Q6H PRN Hypertension Hydromorphone HCl 0.25 mg 12/07/19 23:45 12/08/19 18:36 Dilaudid IV 0.25 mg Q4H PRN Administration Pain, Moderate (4-6) Hydroxychloroquine Sulfate 200 mg 12/08/19 10:00 12/08/19 09:11 Plaquenil PO 200 mg BID AD[facility] Administration Sodium Chloride 100 mls @ 999 mls/hr 12/08/19 11:02 Nacl 0.9% IV JOSEPH PRN Hypotension Ondansetron HCl 4 mg 12/07/19 23:45 Zofran IV Q8H PRN Nausea And Vomiting Sevelamer Carbonate 800 mg 12/08/19 08:00 12/08/19 17:34 Renvela PO 800 mg TIDWM ADIA Administration Sodium Chloride 10 ml 12/07/19 23:45 Sodium Chloride Flush Syringe 10 Ml IV PRN PRN LINE FLUSH
[2019-12-09] MEDS: HYDROmorphone 1 MG/1 ML INJ IV PRN ×6 (02:47→23:24)
[2019-12-09 06:34] LABS: Hematocrit 32.2 % (30.3-42.9); Hemoglobin 10.4 gm/dl (10.1-14.3); Mean Corpuscular HGB Conc 32 % (30-34); Mean Corpuscular Volume 99 fl (79-97); Platelet Count 237 K/mm3 (140-440); Red Blood Count 3.27 M/mm3 (3.65-5.03); Red Cell Distribution Width 18.5 % (13.2-15.2)
[2019-12-09 06:54] LABS: Calcium 8.1 mg/dL (8.4-10.2)
[2019-12-09] MEDS: SEVELAMER CARBONATE 800 MG TAB PO SCH ×3 (08:12→16:35)
[2019-12-09] MEDS: CLOPIDOGREL 75 MG TAB PO SCH (10:48)
[2019-12-09] MEDS: ENOXAPARIN 30 MG/0.3 ML INJ SUB-Q SCH (10:48)
[2019-12-09] MEDS: ASPIRIN 81 MG TAB CHEW PO SCH (10:48)
[2019-12-09] MEDS: carvediloL 25 MG TAB PO SCH ×2 (10:48→21:46)
[2019-12-09] MEDS: HYDROXYCHLOROQUINE 200 MG TAB PO SCH ×2 (10:49→21:46)
[2019-12-09] MEDS ORDERED: SODIUM CHLORIDE 0.9% 100 ML IV PRN ×3 (10:49→10:58)
--- NOTE | 2019-12-09 14:13 | Progress Note ---
Assessment and Plan Continue present cardiac management. Cont volume optimization and electrolyte management per nephrology. Plan for lexiscan MPI stress test in AM. NPO after MN. The patient has been seen in conjunction with Dr. Everett who agrees with the assessment and plan of care. - Patient Problems (1) Chest pain Current Visit: Yes Status: Acute (2) Hypertensive urgency Current Visit: Yes Status: Acute (3) ESRD needing dialysis Current Visit: Yes Status: Chronic (4) Hyperkalemia Current Visit: Yes Status: Acute (5) CAD (coronary artery disease) Current Visit: Yes Status: Chronic Qualifiers: Coronary Disease-Associated Artery/Lesion type: [place] artery [place] vs. transplanted heart: [place] heart Associated angina: angina presence unspecified Qualified Code(s): I25.10 - Atherosclerotic heart disease of [place] coronary artery without angina pectoris (6) Stented coronary artery Current Visit: Yes Status: Chronic (7) SLE (systemic lupus erythematosus related syndrome) Current Visit: Yes Status: Chronic (8) Medical non-compliance Current Visit: Yes Status: Chronic Subjective Date of service: 12/09/19 Principal diagnosis: cp; htn Interval history: pt resting in bed, states she is feeling a little better. still with intermittent cp overnight. in SR on tele. Objective Last Vital Signs Temp 98.2 F 12/09/19 11:30 Pulse 80 12/09/19 12:30 Resp 18 12/09/19 11:30 BP 120/76 12/09/19 12:30 Pulse Ox 99 12/09/19 10:06 - Physical Examination General: No Apparent Distress HEENT: Positive: PERRL, Normocephaly, Mucus Membranes Moist Neck: Positive: neck supple, trachea midline Cardiac: Positive: Reg Rate and Rhythm, S1/S2 Lungs: Positive: Decreased Breath Sounds Neuro: Positive: Grossly Intact Abdomen: Negative: Tender Skin: Negative: Rash Musculoskeletal: No Pain Extremities: Absent: edema - Labs and Meds CBC 12/09/19 Range/Units 06:01 WBC 8.0 (4.5-11.0) K/mm3 RBC 3.27 L (3.65-5.03) M/mm3 Hgb 10.4 (10.1-14.3) gm/dl Hct 32.2 (30.3-42.9) % Plt Count 237 (140-440) K/mm3 Comprehensive Metabolic Panel 12/09/19 Range/Units 06:01 Sodium 135 L (137-145) mmol/L Potassium 5.0 (3.6-5.0) mmol/L Chloride 93.6 L (98-107) mmol/L Carbon Dioxide 25 (22-30) mmol/L BUN 34 H (7-17) mg/dL Creatinine 7.5 H (0.7-1.2) mg/dL Glucose 88 (65-100) mg/dL Calcium 8.1 L (8.4-10.2) mg/dL - Imaging and Cardiology EKG: report reviewed, image reviewed Echo: report reviewed (03/2019 showed EF 55-60%, mild LVH, impaired relaxation, negative bubble study. ) - EKG Sinus rhythms and dysrhythmias: sinus rhythm
[2019-12-09] MEDS ORDERED: SODIUM CHLORIDE*PRIMING MACHINE ONLY FOR DIALYSIS MC ONE (14:54)
--- NOTE | 2019-12-09 15:09 | Progress Note ---
Assessment and Plan Assessment and plan: 33-year-old woman with a history of CAD, status post stent in September 2019, hypertension, CHF, hypertension, lupus, end-stage renal disease on dialysis, Sunday, and Sunday came to the emergency room with complaints of chest pain in the left chest area which she describes as a sharp pain, in termittent for about 1 minute, intensity 5/10, radiating to left arm, she cannot identify exacerbating factor, relieving with pain medications. She admits to nausea, vomiting, shortness of breath, no diaphoresis or palpitation. Patient is being admitted for severe hyperkalemia, she missed her dialysis on Sunday. Cocktail for hyperkalemia was given in the emergency Volume Overload -From missed dialysis -For second dialysis today. Severe Hyperkalemia/ESERD, missexd HD Status post hyperkalemia cocktail, follow potassium level Renal was consulted to see the patient Hypotension -Revaluate post dialysis -Restart home meds -Anticipate discharge in am -Cardiology would like to have a stress test done prior to discharge atypical chest pain, acute on chronic/ CAD Check cardiac enzymes, status post recent stenting September Consult cardiology, continue outpatient medications Hypertension, uncontrolled Continue outpatient medications Add IV hydralazine as needed for blood pressure control Lupus, stable CHF, stable History Interval history: Patient seen and examined, undergoing dialysis, no new complaints discussed with nephrology will need to be dialyzed again today. Hospitalist Physical - Physical exam Narrative exam: Gen. appearance: Patient lying in bed, no apparent distress HEENT: Normocephalic, atraumatic, pupils equally round and reactive to light, extraocular movement intact, and no sclericterus,. No JVD or thyromegaly or nodule,neck supple, no carotid bruit ,mucous membranes dry, no exudate or erythema Heart: S1, S2, regular rate and rhythm Lungs: Clear to auscultation bilaterally, breathing comfortable Abdomen: Positive bowel sounds, nontender, nondistended, no organomegaly Extremity: No edema, cyanosis, clubbing Skin: No rash, nodules, warm, dry Neuro: Oriented 3, cranial nerves II-12 intact, speech is fluent, motor sensory intact - Constitutional Vitals: Temp Pulse Resp BP Pulse Ox 98.2 F 74 18 110/64 99 12/09/19 11:30 12/09/19 14:30 12/09/19 11:30 12/09/19 14:30 12/09/19 10:06 General appearance: Present: no acute distress PRADEEP score - Pradeep Score Age > 65: (0) No Aspirin use within the Past 7 Days: (1) Yes 3 or more CAD Risk Factors: (1) Yes 2 or more Angina events in past 24 hrs: (0) No Known CAD with more than 50% Stenosis: (0) No Elevated Cardiac Markers: (1) Yes ST Deviation Greater than 0.5mm: (0) No PRADEEP Score: 3 Results - Labs CBC & Chem 7: 12/09/19 06:01 12/09/19 06:01 Labs: Laboratory Last Values WBC 8.0 K/mm3 (4.5-11.0) 12/09/19 06:01 RBC 3.27 M/mm3 (3.65-5.03) L 12/09/19 06:01 Hgb 10.4 gm/dl (10.1-14.3) 12/09/19 06:01 Hct 32.2 % (30.3-42.9) 12/09/19 06:01 MCV 99 fl (79-97) H 12/09/19 06:01 MCH 32 pg (28-32) 12/09/19 06:01 MCHC 32 % (30-34) 12/09/19 06:01 RDW 18.5 % (13.2-15.2) H 12/09/19 06:01 Plt Count 237 K/mm3 (140-440) 12/09/19 06:01 Lymph % (Auto) 24.4 % (13.4-35.0) 12/08/19 06:39 [place] % (Auto) 9.2 % (0.0-7.3) H 12/08/19 06:39 Eos % (Auto) 0.7 % (0.0-4.3) 12/08/19 06:39 Baso % (Auto) 1.3 % (0.0-1.8) 12/08/19 06:39 Lymph # 2.4 K/mm3 (1.2-5.4) 12/08/19 06:39 [place] # 0.9 K/mm3 (0.0-0.8) H 12/08/19 06:39 Eos # 0.1 K/mm3 (0.0-0.4) 12/08/19 06:39 Baso # 0.1 K/mm3 (0.0-0.1) 12/08/19 06:39 Seg Neutrophils % 64.4 % (40.0-70.0) 12/08/19 06:39 Seg Neutrophils # 6.2 K/mm3 (1.8-7.7) 12/08/19 06:39 Sodium 135 mmol/L (137-145) L 12/09/19 06:01 Potassium 5.0 mmol/L (3.6-5.0) 12/09/19 06:01 Chloride 93.6 mmol/L (98-107) L 12/09/19 06:01 Carbon Dioxide 25 mmol/L (22-30) 12/09/19 06:01 Anion Gap 21 mmol/L 12/09/19 06:01 BUN 34 mg/dL (7-17) H 12/09/19 06:01 Creatinine 7.5 mg/dL (0.7-1.2) H 12/09/19 06:01 Estimated GFR 7 ml/min 12/09/19 06:01 BUN/Creatinine Ratio 5 % 12/09/19 06:01 Glucose 88 mg/dL (65-100) 12/09/19 06:01 Calcium 8.1 mg/dL (8.4-10.2) L 12/09/19 06:01 Total Creatine Kinase 62 units/L (30-135) 12/08/19 06:39 Total Creatine Kinase 63 units/L (30-135) 12/08/19 06:39 CK-MB (CK-2) 1.5 ng/mL (0.0-4.0) 12/08/19 06:39 CK-MB (CK-2) 1.6 ng/mL (0.0-4.0) 12/08/19 06:39 CK-MB (CK-2) Rel Index 2.3 (0-4) 12/08/19 06:39 CK-MB (CK-2) Rel Index 2.5 (0-4) 12/08/19 06:39 Troponin T 0.016 ng/mL (0.00-0.029) 12/08/19 06:39 Troponin T 0.017 ng/mL (0.00-0.029) 12/08/19 06:39 Troponin T 0.020 ng/mL (0.00-0.029) 12/08/19 06:39 Troponin T 0.021 ng/mL (0.00-0.029) 12/08/19 06:39 HCG, Qual Negative (Negative) 12/07/19 21:25 Hepatitis A IgM Ab Non-reactive (NonReactive) 12/08/19 09:43 Hep Bs Antigen Non-reactive (Negative) 12/08/19 09:43 Hep B Core IgM Ab Non-reactive (NonReactive) 12/08/19 09:43 Hepatitis C Antibody Non-reactive (NonReactive) 12/08/19 09:43 Active Medications - Current Medications Current Medications: Generic Name Dose Route Start Last Admin Trade Name Freq PRN Reason Stop Dose Admin Aspirin 81 mg 12/08/19 10:00 12/09/19 10:48 Baby Aspirin PO 81 mg DAILY ADIA Administration Carvedilol 25 mg 12/08/19 10:00 12/09/19 10:48 Coreg PO 25 mg BID ADIA Administration Clopidogrel Bisulfate 75 mg 12/08/19 10:00 12/09/19 10:48 Plavix PO 75 mg DAILY ADIA Administration Enoxaparin Sodium 30 mg 12/08/19 10:00 12/09/19 10:48 Enoxaparin SUB-Q 30 mg QDAY ADIA Administration Hydralazine HCl 5 mg 12/08/19 05:22 Apresoline IV Q6H PRN Hypertension Hydromorphone HCl 0.25 mg 12/07/19 23:45 12/09/19 10:48 Dilaudid IV 0.25 mg Q4H PRN Administration Pain, Moderate (4-6) Hydroxychloroquine Sulfate 200 mg 12/08/19 10:00 12/09/19 10:49 Plaquenil PO Not Given BID ADIA Sodium Chloride 100 mls @ 999 mls/hr 12/08/19 11:02 Nacl 0.9% IV JOSEPH PRN Hypotension Sodium Chloride 100 mls @ 999 mls/hr 12/09/19 10:58 Nacl 0.9% IV JOSEPH PRN Hypotension Ondansetron HCl 4 mg 12/07/19 23:45 Zofran IV Q8H PRN Nausea And Vomiting Sevelamer Carbonate 800 mg 12/08/19 08:00 02/04/20 11:16 Renvela PO 800 mg TIDWM ADIA Administration Sodium Chloride 10 ml 12/07/19 23:45 12/09/19 10:48 Sodium Chloride Flush Syringe 10 Ml IV 10 ml PRN PRN Administration LINE FLUSH
--- NOTE | 2019-12-09 18:27 | Progress Note ---
Assessment and Plan - Patient Problems (1) Recurrent chest pain Current Visit: Yes Status: Acute Plan to address problem: recurrent chest Pain in the setting of lupus / also rule out acute coronary events (2) SLE (systemic lupus erythematosus related syndrome) Current Visit: Yes Status: Chronic Plan to address problem: systemic lupus Continue home meds admitted with chest pain (3) ESRD (end stage renal disease) on dialysis Current Visit: Yes Status: Chronic Plan to address problem: end-stage renal disease on dialysis We'll repeat dialysis today. Ultrafiltration as tolerated (4) Hypertension Current Visit: No Status: Chronic Qualifiers: Hypertension type: unspecified Qualified Code(s): I10 - Essential (primary) hypertension Plan to address problem: hypertension uncontrolled We'll initiate dialysis continue blood pressure medications (5) Hyperkalemia Current Visit: Yes Status: Acute Plan to address problem: hyperkalemia secondary to renal failure will initiate dialysis Subjective Principal diagnosis: cp; htn Interval history: 34-year-old lady with history of lupus and end-stage renal disease on hemodialysis Sunday admitted with complaints of missed dialysis hyperkalemia. Patient admits to shortness of breath is 3.5 kgs over her dry weight she presents with complaint of chest pain described as sharp in central chest region associated shortness of breath nausea vomiting denies any fevers or chills she has had previous AV access is Clotted currently has a right IJ PermCath Patient seen today has lower extremity edema and volume overload Will repeat HD today Objective - Vital Signs Vital signs: Vital Signs - 12hr 12/09/19 12/09/19 12/09/19 07:05 08:00 10:06 Temperature 97.7 F Pulse Rate 80 Respiratory 18 Rate Blood Pressure 149/96 O2 Sat by Pulse 99 Oximetry 12/09/19 12/09/19 12/09/19 11:30 11:45 12:00 Temperature 98.2 F Pulse Rate 73 76 76 Respiratory 18 Rate Blood Pressure 133/84 126/84 118/69 O2 Sat by Pulse Oximetry 12/09/19 12/09/19 12/09/19 12:15 12:30 12:45 Temperature Pulse Rate 76 80 72 Respiratory Rate Blood Pressure 111/60 120/76 106/75 O2 Sat by Pulse Oximetry 12/09/19 12/09/19 12/09/19 12:50 13:00 13:15 Temperature Pulse Rate 74 70 78 Respiratory Rate Blood Pressure 109/74 128/74 105/58 O2 Sat by Pulse Oximetry 12/09/19 12/09/19 12/09/19 13:30 13:45 14:00 Temperature Pulse Rate 77 76 78 Respiratory Rate Blood Pressure 101/58 107/62 105/60 O2 Sat by Pulse Oximetry 12/09/19 12/09/19 12/09/19 14:15 14:30 14:45 Temperature 98.0 F Pulse Rate 76 74 73 Respiratory 18 Rate Blood Pressure 115/63 110/64 115/72 O2 Sat by Pulse Oximetry 12/09/19 16:00 Temperature Pulse Rate 73 Respiratory Rate Blood Pressure O2 Sat by Pulse Oximetry - General Appearance General appearance: well-developed, well-nourished EENT: ATNC, PERRL Neck: no JVD Respiratory: Present: Decreased Breath Sounds Cardiology: regular, S1S2 Gastrointestinal: normal, normoactive bowel sounds Integumentary: no rash Neurologic: alert and oriented x3, CN 3-12 intact Musculoskeletal: deferred Psychiatric: mood/affect appropriate - Lab 12/09/19 06:01 12/09/19 06:01 Most recent lab results Calcium 8.1 mg/dL (8.4-10.2) L 12/09/19 06:01 Medications & Allergies - Medications Allergies/Adverse Reactions: Allergies acetaminophen [From Percocet] Allergy (Verified 12/07/19 20:32) Itching hydrocodone bitartrate [From Vicodin] Allergy (Verified 03/22/19 15:37) Itching morphine Allergy (Verified 12/07/19 20:32) Itching oxycodone Allergy (Verified 03/23/19 00:35) Itching tramadol Allergy (Verified 03/22/19 15:37) Hives metoclopramide HCl [From Reglan] Adverse Reaction (Verified 03/22/19 15:37) Unknown Home Medications: Home Medications Medication Instructions Recorded Confirmed Last Taken Type Sevelamer HCl [Renagel] 800 mg PO TIDWM #30 tablet 06/24/15 12/08/19 1 Day Ago Rx ~07/18/17 Ondansetron [Zofran Odt] 4 mg PO Q8HR #10 tab.rapdis 07/04/19 12/08/19 Unknown Rx Aspirin 81 mg PO DAILY 12/08/19 12/08/19 Unknown History Coreg 25 mg PO BID 12/08/19 12/08/19 Unknown History Pepcid 20 mg PO DAILY 12/08/19 12/08/19 Unknown History Plaquenil 200 mg PO BID 12/08/19 12/08/19 Unknown History Plavix 75 mg PO DAILY 12/08/19 12/08/19 Unknown History Active Medications: Generic Name Dose Route Start Last Admin Trade Name Freq PRN Reason Stop Dose Admin Aspirin 81 mg 12/08/19 10:00 12/09/19 10:48 Baby Aspirin PO 81 mg DAILY ADIA Administration Carvedilol 25 mg 12/08/19 10:00 12/09/19 10:48 Coreg PO 25 mg BID ADIA Administration Clopidogrel Bisulfate 75 mg 12/08/19 10:00 12/09/19 10:48 Plavix PO 75 mg DAILY ADIA Administration Enoxaparin Sodium 30 mg 12/08/19 10:00 12/09/19 10:48 Enoxaparin SUB-Q 30 mg QDAY [facility] Administration Hydralazine HCl 5 mg 12/08/19 05:22 Apresoline IV Q6H PRN Hypertension Hydromorphone HCl 0.25 mg 12/07/19 23:45 12/09/19 15:54 Dilaudid IV 0.25 mg Q4H PRN Administration Pain, Moderate (4-6) Hydroxychloroquine Sulfate 200 mg 12/08/19 10:00 12/09/19 10:49 Plaquenil PO Not Given BID [facility] Sodium Chloride 100 mls @ 999 mls/hr 12/08/19 11:02 Nacl 0.9% IV JOSEPH PRN Hypotension Sodium Chloride 100 mls @ 999 mls/hr 12/09/19 10:58 Nacl 0.9% IV JOSEPH PRN Hypotension Ondansetron HCl 4 mg 12/07/19 23:45 Zofran IV Q8H PRN Nausea And Vomiting Sevelamer Carbonate 800 mg 12/08/19 08:00 12/09/19 16:35 Renvela PO 800 mg TIDWM ADIA Administration Sodium Chloride 10 ml 12/07/19 23:45 12/09/19 10:48 Sodium Chloride Flush Syringe 10 Ml IV 10 ml PRN PRN Administration LINE FLUSH
[2019-12-10] MEDS: HYDROmorphone 1 MG/1 ML INJ IV PRN ×3 (03:42→12:11)
[2019-12-10] MEDS: SEVELAMER CARBONATE 800 MG TAB PO SCH ×2 (08:33→12:11)
[2019-12-10] MEDS: HYDROXYCHLOROQUINE 200 MG TAB PO SCH (09:43)
[2019-12-10] MEDS: carvediloL 25 MG TAB PO SCH (09:44)
[2019-12-10] MEDS: ASPIRIN 81 MG TAB CHEW PO SCH (09:45)
[2019-12-10] MEDS: CLOPIDOGREL 75 MG TAB PO SCH (09:45)
[2019-12-10 09:46] VITALS: BP 136/93
[2019-12-10] MEDS: ENOXAPARIN 30 MG/0.3 ML INJ SUB-Q SCH (09:46)
--- NOTE | 2019-12-10 10:03 | Discharge Summary ---
Providers - Providers Date of Admission: 12/07/19 23:35 Attending physician: TERESA COLON MD 12/07/19 23:40 Consult to Physician [CONS] Stat Comment: Dr. Julio spoke with Dr. Wagner @ [id number] Consulting Provider: ANALY WAGNER Physician Instructions: Reason For Exam: ESRD on HD hyperkalemia 12/07/19 23:45 Consult to Physician [CONS] Routine Comment: Consulting Provider: HEIDI MOULTON Physician Instructions: Reason For Exam: cp Primary care physician: ENGINEERING DESIGNER Hospitalization Reason for admission: Volume overload Condition: Stable Hospital course: 33-year-old woman with a history of CAD, status post stent in September 2019, hypertension, CHF, hypertension, lupus, end-stage renal disease on dialysis, Sun, and Sunday came to the emergency room with complaints of chest pain in the left chest area which she describes as a sharp pain, intermittent for about 1 minute, intensity 5/10, radiating to left arm, she cannot identify exacerbating factor, relieving with pain medications. She admits to nausea, vomiting, shortness of breath, no diaphoresis or palpitation. Patient is being admitted for severe hyperkalemia, she missed her dialysis on Sunday. Cocktail for hyperkalemia was given in the emergency Patient underwent series of dialysis with improvement in symptoms. Did have extensive discussion with her and also with cardiology the patient verbalized understanding she nevertheless refused stress test despite all the warnings and the risk associated she verbalized understanding. She is clinically stable at this point for discharge and recommended that no strenuous activity until she sees cardiology and obtain recommended stress test. She states that she had a stress test last year in September that was negative although on review of records she did have a stress test and also a cardiac cath in September 2019 and did obtain a stent placed at that time. Volume Overload Severe Hyperkalemia/ESERD, missexd HD Hypotension Hypertension, uncontrolled Lupus, stable CHF, stable Noncompliance Disposition: -01 TO HOME OR SELFCARE Time spent for discharge: 35-minute Core Measure Documentation - Palliative Care Palliative Care/ Comfort Measures: Not Applicable - Core Measures Any of the following diagnoses?: none Exam - Physical Exam Narrative exam: Gen. appearance: Patient lying in bed, no apparent distress HEENT: Normocephalic, atraumatic, pupils equally round and reactive to light, extraocular movement intact, and no sclericterus,. No JVD or thyromegaly or nodule,neck supple, no carotid bruit ,mucous membranes dry, no exudate or erythema Heart: S1, S2, regular rate and rhythm Lungs: Clear to auscultation bilaterally, breathing comfortable Abdomen: Positive bowel sounds, nontender, nondistended, no organomegaly Extremity: No edema, cyanosis, clubbing Skin: No rash, nodules, warm, dry Neuro: Oriented 3, cranial nerves II-12 intact, speech is fluent, motor sensory intact - Constitutional Vitals: Temp Pulse Resp BP Pulse Ox 98.1 F 75 20 136/93 99 12/10/19 04:00 12/10/19 09:44 12/10/19 04:00 12/10/19 09:44 12/10/19 04:00 Plan Activity: advance as tolerated, fall precautions Diet: low fat, diabetic, renal Special Instructions: record daily weights, record daily BP diary, record blood sugar diary Additional Instructions: follow with cardiology for outpatient Echo Follow up with: PRIMARY MD AMBER [Primary Care Provider] - 7 Days CHI MÁRQUEZ MD [Staff Physician] - 7 Days PEDRO LUIS OCHOA MD [Staff Physician] - 7 Days Forms: Work/School Release Form
--- NOTE | 2019-12-10 14:30 | Progress Note ---
Assessment and Plan - Patient Problems (1) Recurrent chest pain Status: Acute Plan to address problem: recurrent chest Pain in the setting of lupus / also rule out acute coronary events (2) SLE (systemic lupus erythematosus related syndrome) Status: Chronic Plan to address problem: systemic lupus Continue home meds admitted with chest pain (3) ESRD (end stage renal disease) on dialysis Status: Chronic Plan to address problem: end-stage renal disease on dialysis We'll repeat dialysis today. Ultrafiltration as tolerated (4) Hypertension Status: Chronic Qualifiers: Hypertension type: unspecified Qualified Code(s): I10 - Essential (primary) hypertension Plan to address problem: hypertension uncontrolled We'll initiate dialysis continue blood pressure medications (5) Hyperkalemia Status: Acute Plan to address problem: hyperkalemia resolved secondary to renal failure Received hemodialysis Subjective Principal diagnosis: cp; htn Interval history: 34-year-old lady with history of lupus and end-stage renal disease on hemodialysis Sunday admitted with complaints of missed dialysis hyperkalemia. Patient admits to shortness of breath is 3.5 kgs over her dry weight she presents with complaint of chest pain described as sharp in central chest region associated shortness of breath nausea vomiting denies any fevers or chills she has had previous AV access is Clotted currently has a right IJ PermCath Patient seen today Shortness of breath and volume overload improved improved Plan for discharge today follow-up at outpatient hemodialysis tomorrow Objective - Vital Signs Vital signs: Vital Signs - 12hr 12/10/19 12/10/19 12/10/19 04:00 08:00 09:44 Temperature 98.1 F Pulse Rate 80 109 H 75 Respiratory 20 Rate Blood Pressure 118/89 136/93 O2 Sat by Pulse 99 Oximetry 12/10/19 12:46 Temperature Pulse Rate Respiratory Rate Blood Pressure O2 Sat by Pulse 99 Oximetry - General Appearance General appearance: well-developed EENT: ATNC, PERRL Neck: no JVD Respiratory: Present: Clear to Ascultation Cardiology: regular, S1S2 Gastrointestinal: normal, normoactive bowel sounds Integumentary: no rash Neurologic: alert and oriented x3 Psychiatric: mood/affect appropriate - Lab 12/09/19 06:01 12/09/19 06:01 Most recent lab results Calcium 8.1 mg/dL (8.4-10.2) L 12/09/19 06:01 - Imaging Chest x-ray: image reviewed (chest x-ray with pulmonary congestion) Medications & Allergies - Medications Allergies/Adverse Reactions: Allergies acetaminophen [From Percocet] Allergy (Verified 12/07/19 20:32) Itching hydrocodone bitartrate [From Vicodin] Allergy (Verified 03/22/19 15:37) Itching morphine Allergy (Verified 12/07/19 20:32) Itching oxycodone Allergy (Verified 03/23/19 00:35) Itching tramadol Allergy (Verified 03/22/19 15:37) Hives metoclopramide HCl [From Reglan] Adverse Reaction (Verified 03/22/19 15:37) Unknown Home Medications: Home Medications Medication Instructions Recorded Confirmed Last Taken Type Sevelamer HCl [Renagel] 800 mg PO TIDWM #30 tablet 06/24/15 12/08/19 1 Day Ago Rx ~07/18/17 Ondansetron [Zofran ODT TAB] 4 mg PO Q8HR #10 tab.rapdis 07/04/19 12/08/19 Unknown Rx Aspirin 81 mg PO DAILY 12/08/19 12/08/19 Unknown History Coreg 25 mg PO BID 12/08/19 12/08/19 Unknown History Pepcid 20 mg PO DAILY 12/08/19 12/08/19 Unknown History Plaquenil 200 mg PO BID 12/08/19 12/08/19 Unknown History Plavix 75 mg PO DAILY 12/08/19 12/08/19 Unknown History
== END 2019-12-10 13:35 | disposition home or self-care (01) ==
LOC: ED 19:51 → 4A 23:35
PROVIDERS: ADMIT Internal Medicine; ATTEND Internal Medicine
DX: E87.5 Hyperkalemia (principal); I13.2 Hypertensive heart and chronic kidney disease with heart failure and with stage 5 chronic kidney disease, or end stage renal disease; N18.6 End stage renal disease; I50.9 Heart failure, unspecified; E87.6 Hypokalemia; E78.2 Mixed hyperlipidemia; R07.89 Other chest pain; I95.9 Hypotension, unspecified; E87.70 Fluid overload, unspecified; M32.9 Systemic lupus erythematosus, unspecified; I25.10 Atherosclerotic heart disease of native coronary artery without angina pectoris; I16.0 Hypertensive urgency; M19.90 Unspecified osteoarthritis, unspecified site; Z91.14 Patient's other noncompliance with medication regimen; Z95.5 Presence of coronary angioplasty implant and graft; Z99.2 Dependence on renal dialysis; Z96.649 Presence of unspecified artificial hip joint; Z90.49 Acquired absence of other specified parts of digestive tract; Z79.02 Long term (current) use of antithrombotics/antiplatelets; Z79.82 Long term (current) use of aspirin; Z79.899 Other long term (current) drug therapy; Z88.5 Allergy status to narcotic agent; Z88.6 Allergy status to analgesic agent; Z88.8 Allergy status to other drugs, medicaments and biological substances
CPT/HCPCS: 36415; 71045; 80048; 80074; 82550; 82553; 84484; 84703; 85025; 85027; 93005; 93010; 96372; 96374; 96375; 96376; 99284; G0257; G0378; J0610; J1170; J1200; J1650; J2405; J7030; J1815

== ENCOUNTER 2019-12-29 15:53 | Emergency (ER) | payer MEDICAID ==
--- NOTE | 2019-12-29 16:42 | Event Note ---
ED Screening Note ED Screening Note: pt presents with left foot and ankle pain states she felt like there was swelling to the ankle, there is non present on exam states she takes plavix and aspirin there is ecchymosis to the left foot left sided neck pain that radiates down the arm, chronic, has been seen for this states she thinks she is having a lupus flare no signs of DVT ESRD on dialysis denies any missed days This initial assessment/diagnostic orders/clinical plan/treatment(s) is/are subject to change based on patients health status, clinical progression and re- assessment by fellow clinical providers in the ED. Further treatment and workup at subsequent clinical providers discretion. Patient/guardian urged not to elope from the ED as their condition may be serious if not clinically assessed and managed. Initial orders include: XR of the left foot/ankle
[2019-12-29 17:12] LABS: Basophils % (Auto) 0.3 % (0.0-1.8); Eosinophils # (Auto) 0.1 K/mm3 (0.0-0.4); Eosinophils % (Auto) 0.7 % (0.0-4.3); Hematocrit 35.5 % (30.3-42.9); Hemoglobin 11.4 gm/dl (10.1-14.3); Lymphocytes % (Auto) 10.4 % (13.4-35.0); Mean Corpuscular HGB Conc 32 % (30-34); Mean Corpuscular Volume 98 fl (79-97); Monocytes # (Auto) 0.9 K/mm3 (0.0-0.8); Monocytes % (Auto) 8.8 % (0.0-7.3); Platelet Count 197 K/mm3 (140-440); Red Blood Count 3.63 M/mm3 (3.65-5.03); Red Cell Distribution Width 16.7 % (13.2-15.2)
--- NOTE | 2019-12-29 17:22 | XRay Report ---
LEFT FOOT 3 VIEWS LEFT ANKLE 3 VIEWS INDICATION / CLINICAL INFORMATION: Left foot and ankle pain. COMPARISON: None available. FINDINGS: BONES and JOINT(S): No acute fracture or subluxation. No significant arthritis. SOFT TISSUES: There is severe generalized atherosclerosis. No additional significant abnormality. ADDITIONAL FINDINGS: None. IMPRESSION: 1. No acute findings. 2. Severe atherosclerosis. Signer Name: Redd Frausto MD Signed: 12/29/2019 5:18 PM Workstation Name: [id number]
[2019-12-29 17:23] LABS: INR 1.11 (0.87-1.13)
[2019-12-29 17:31] LABS: Albumin 3.6 g/dL (3.9-5)
--- NOTE | 2019-12-29 18:28 | Emergency Department Report ---
ED General Adult HPI - General Chief complaint: Extremity Problem,Nontraumatic Stated complaint: LEFT PAIN Time Seen by Provider: 12/29/19 16:38 Source: patient Mode of arrival: Ambulatory Limitations: No Limitations - History of Present Illness Initial comments: 34-year-old female with a history of end-stage renal disease, lupus, hypertension and coronary artery disease presents with complaint of left foot pain. Patient has had the left foot pain for the past 3 days. Patient states her pain primarily is in her heel region and she noticed discoloration to the heel. Patient also now states that she is having tenderness from the heel that radiates up to her calf region. Patient denies any history of DVT in her lower extremities. Patient that she had a DVT in her right upper extremity in the past. Patient has had next dialysis is tomorrow and she has an appointment with her footwear factory worker Sunday. Patient has had no recent falls or trauma to the lower extremity. Patient states she has been taking Tylenol for the pain with minimal relief. - Related Data Home Medications Medication Instructions Recorded Confirmed Last Taken Aspirin 81 mg PO DAILY 12/08/19 12/08/19 Unknown Coreg 25 mg PO BID 12/08/19 12/08/19 Unknown Pepcid 20 mg PO DAILY 12/08/19 12/08/19 Unknown Plaquenil 200 mg PO BID 12/08/19 12/08/19 Unknown Plavix 75 mg PO DAILY 12/08/19 12/08/19 Unknown Previous Rx's Medication Instructions Recorded Last Taken Type sevelamer HCL [Renagel] 800 mg PO TIDWM #30 tablet 06/24/15 1 Day Ago Rx ~07/18/17 Ondansetron [Zofran ODT TAB] 4 mg PO Q8HR #10 tab.rapdis 07/04/19 Unknown Rx Allergies Allergy/AdvReac Type Severity Reaction Status Date / Time acetaminophen [From Percocet] Allergy Itching Verified 12/07/19 20:32 hydrocodone bitartrate Allergy Itching Verified 03/22/19 15:37 [From Vicodin] morphine Allergy Itching Verified 12/07/19 20:32 oxycodone Allergy Itching Verified 03/23/19 00:35 tramadol Allergy Hives Verified 03/22/19 15:37 metoclopramide HCl AdvReac Unknown Verified 05/18/19 15:37 [From Reglan] ED Review of Systems ROS: Stated complaint: LEFT PAIN Other details as noted in HPI Constitutional: denies: chills, fever Eyes: denies: eye pain, eye discharge, vision change ENT: denies: ear pain, throat pain Respiratory: denies: cough, shortness of breath, wheezing Cardiovascular: denies: chest pain, palpitations Endocrine: no symptoms reported Gastrointestinal: denies: abdominal pain, nausea, diarrhea Genitourinary: denies: urgency, dysuria, discharge Musculoskeletal: myalgia. denies: back pain, joint swelling, arthralgia Skin: denies: rash, lesions Neurological: denies: headache, weakness, paresthesias Psychiatric: denies: anxiety, depression Hematological/Lymphatic: denies: easy bleeding, easy bruising ED Past Medical Hx - Past Medical History Previous Medical History?: Yes Hx Hypertension: Yes (EF NORMAL) Hx Heart Attack/AMI: Yes (2 stents on Plavix&ASA) Hx Congestive Heart Failure: Yes Hx Diabetes: No Hx Liver Disease: No Hx Renal Disease: Yes (hemodialysis ) Hx Sickle Cell Disease: ( ) Hx Arthritis: Yes Hx Seizures: No Hx Asthma: No Hx COPD: No Hx HIV: No Additional medical history: Lupus, 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 - Surgical History Past Surgical History?: Yes Hx Coronary Stent: Yes (2011 x1) Hx Cholecystectomy: Yes Additional Surgical History: bilat total hips, right av fistula, , Dialysis chest access - Social History Smoking Status: Never Smoker Substance Use Type: None - Medications Home Medications: Home Medications Medication Instructions Recorded Confirmed Last Taken Type sevelamer HCL [Renagel] 800 mg PO TIDWM #30 tablet 06/24/15 12/08/19 1 Day Ago Rx ~07/18/17 Ondansetron [Zofran ODT TAB] 4 mg PO Q8HR #10 tab.rapdis 07/04/19 12/08/19 Unknown Rx Aspirin 81 mg PO DAILY 12/08/19 12/08/19 Unknown History Coreg 25 mg PO BID 12/08/19 12/08/19 Unknown History Pepcid 20 mg PO DAILY 12/08/19 12/08/19 Unknown History Plaquenil 200 mg PO BID 12/08/19 12/08/19 Unknown History Plavix 75 mg PO DAILY 12/08/19 12/08/19 Unknown History ED Physical Exam - General Limitations: No Limitations General appearance: alert, in no apparent distress, other (Comfortable) - Head Head exam: Present: atraumatic, normocephalic - Eye Eye exam: Present: normal appearance - ENT ENT exam: Present: mucous membranes moist - Neck Neck exam: Present: normal inspection - Respiratory Respiratory exam: Present: normal lung sounds bilaterally. Absent: respiratory distress - Cardiovascular Cardiovascular Exam: Present: regular rate, normal rhythm, other (Right-sided vascular catheter shows no signs of erythema or exudate). Absent: systolic murmur, diastolic murmur, rubs, gallop - GI/Abdominal GI/Abdominal exam: Present: soft, normal bowel sounds - Extremities Exam Extremities exam: Present: normal inspection, full ROM, tenderness (Noted in the left heel region with no evidence of ulceration. Patient has no pain on the dorsum of the foot or the bilateral malleoli region.), calf tenderness (Mild reproducible tenderness in the left calf region.), other (Mild ecchymosis in the left earlobe without any evidence of erythema. Patient has 2+ dorsalis pedis pulses in the left DP region) - Back Exam Back exam: Present: normal inspection - Neurological Exam Neurological exam: Present: alert, oriented X3 - Psychiatric Psychiatric exam: Present: normal affect, normal mood - Skin Skin exam: Present: warm, dry, intact, normal color. Absent: rash ED Course Vital Signs 12/29/19 12/29/19 16:38 16:44 Temperature 98.3 F Pulse Rate 87 Respiratory 18 Rate Blood Pressure 166/113 Blood Pressure 147/98 [Left] O2 Sat by Pulse 100 Oximetry ED Medical Decision Making - Lab Data Result diagrams: 12/29/19 16:49 12/29/19 16:49 - EKG Data EKG shows normal: sinus rhythm Rate: normal - EKG Data When compared to previous EKG there are: no significant change Interpretation: no acute changes - Medical Decision Making Patient received 2 mg of Dilaudid IM while in emergency department she states she cannot take p.o. narcotic therapy. Patient has x-rays which showed no acute process. Ultrasound shows no evidence of acute DVT. Patient has no significant lab abnormality either. Patient be discharged to follow-up with her PCP. Patient also has an appointment with her footwear factory worker on Sunday. - Differential Diagnosis Dehydration; Electrolyte Abnormality; Anemia; DVT; Fracture Critical care attestation.: If time is entered above; I have spent that time in minutes in the direct care of this critically ill patient, excluding procedure time. ED Disposition Clinical Impression: ESRD (end stage renal disease) on dialysis, Foot pain, right, Hypertension Disposition: TO HOME OR SELFCARE Is pt being admited?: No Does the pt Need Aspirin: No Condition: Stable Instructions: Chronic Kidney Disease (ED), Arthralgia (ED), Hypertension (ED) Referrals: PRIMARY CARE, [Primary Care Provider] - 3-5 Days Time of Disposition: 20:32 Print Language: FRENCH
[2019-12-29] MEDS ORDERED: HYDROmorphone 2 MG/1 ML INJ IM ONE (18:46)
--- NOTE | 2019-12-29 20:19 | Vascular Lab Report ---
DUPLEX DOPPLER LOWER EXTREMITY VEINS, LEFT INDICATION: lower extremity pain. Left lower extremity pain TECHNIQUE: Duplex doppler imaging was performed through the veins of the left lower extremity using venous compr ession and other maneuvers. COMPARISON: None available. FINDINGS: Common Femoral vein: Negative. Superficial Femoral vein: Negative. Popliteal vein: Negative. Calf veins: Negative. Additional findings: None. IMPRESSION: 1. No sonographic evidence for DVT in the left lower extremity. Signer Name: Gerry Arvizu MD Signed: 12/29/2019 8:14 PM Workstation Name: [id number]
[2019-12-29] MEDS ORDERED: cloNIDine 0.2 MG TAB PO ONE (20:56)
[2019-12-29 21:45] VITALS: BP 150/99
== END 2019-12-29 21:45 | disposition home or self-care (01) ==
LOC: ED 15:53
DX: M79.672 Pain in left foot (principal); I10 Essential (primary) hypertension; I13.2 Hypertensive heart and chronic kidney disease with heart failure and with stage 5 chronic kidney disease, or end stage renal disease; I50.9 Heart failure, unspecified; N18.6 End stage renal disease; Z99.2 Dependence on renal dialysis; Z90.49 Acquired absence of other specified parts of digestive tract; Z79.899 Other long term (current) drug therapy; Z88.8 Allergy status to other drugs, medicaments and biological substances
CPT/HCPCS: 36415; 73610; 73630; 80053; 85025; 85610; 85730; 93005; 93010; 93971; 96372; 99284; J1170

== ENCOUNTER 2020-01-07 01:36 | Inpatient (IN) | payer MEDICAID ==
[2020-01-07] MEDS ORDERED: ASPIRIN 325 MG TAB PO ONE (01:51)
[2020-01-07 02:46] LABS: Basophils % (Auto) 0.2 % (0.0-1.8); Eosinophils # (Auto) 0.1 K/mm3 (0.0-0.4); Eosinophils % (Auto) 0.4 % (0.0-4.3); Hematocrit 35.1 % (30.3-42.9); Hemoglobin 11.2 gm/dl (10.1-14.3); Lymphocytes # (Auto) 1.6 K/mm3 (1.2-5.4); Lymphocytes % (Auto) 12.6 % (13.4-35.0); Mean Corpuscular HGB Conc 32 % (30-34); Mean Corpuscular Volume 98 fl (79-97); Monocytes # (Auto) 0.8 K/mm3 (0.0-0.8); Monocytes % (Auto) 5.9 % (0.0-7.3); Platelet Count 258 K/mm3 (140-440); Red Blood Count 3.57 M/mm3 (3.65-5.03)
[2020-01-07 03:09] LABS: Calcium 8.8 mg/dL (8.4-10.2)
--- NOTE | 2020-01-07 03:28 | XRay Report ---
CHEST 1 VIEW INDICATION / CLINICAL INFORMATION: Chest Pain. COMPARISON: 12/07/2019 FINDINGS: SUPPORT DEVICES: Dialysis catheter remains on the right. HEART / MEDIASTINUM: No significant abnormality. LUNGS / PLEURA: No significant pulmonary or pleural abnormality. No pneumothorax. ADDITIONAL FINDINGS: No significant additional findings. IMPRESSION: 1. No significant change Signer Name: Romel Garza MD Signed: 01/07/2020 3:24 AM Workstation Name: [id number]
[2020-01-07] MEDS ORDERED: DEXTROSE 50% IN WATER (25GM) 50 ML SYRINGE IV ONE ×3 (03:59→07:19)
[2020-01-07] MEDS ORDERED: INSULIN REGULAR, HUMAN 100 UNITS/1 ML IV ONE (03:59)
[2020-01-07] MEDS ORDERED: SODIUM POLYSTYRENE 15 GM/60 ML ORAL LIQD PO ONE (03:59)
[2020-01-07] MEDS ORDERED: CALCIUM CHLORIDE 1,000 MG/10 ML SDV IVP ONE (03:59)
[2020-01-07] MEDS ORDERED: MORPHINE 2 MG/1 ML INJ IV ONE (04:00)
--- NOTE | 2020-01-07 04:00 | Emergency Department Report ---
ED Chest Pain HPI - General Chief Complaint: Chest Pain Stated Complaint: CHEST PAIN SOB BLOOD IN URINE Time Seen by Provider: 01/07/20 03:55 Source: patient Mode of arrival: Ambulatory Limitations: No Limitations - History of Present Illness Initial Comments: Patient is a 34-year-old female that presents emergency room with complaints of chest pain x1 day. Patient states her chest pain started yesterday. Patient states is in her left chest. Patient states is nonradiating. Patient states her chest pain is a sharp pain. Patient rates as an 8 out of 10. Patient states her chest pain is better with rest and worse with exertion. Patient states she feels like her potassium is high. Patient dates has a history of [place], CAD, end-stage renal disease, CHF, 2 stents, dialysis,. Patient states she has had multiple bouts of hyperkalemia. MD Complaint: chest pain -: Sudden Onset: during rest Pain Location: left chest Pain Radiation: none Severity: severe Severity scale (0 -10): 8 Quality: sharp Consistency: constant Improves With: rest Worsens With: exertion re: denies: nausea, vomting, diaphoresis, dyspnea, sense of impending doom Other Symptoms: denies: cough, fever, syncope, rash, acid taste in mouth, leg swelling, palpitations, burping Treatments Prior to Arrival: aspirin Aspirin use within the Past 7 Days: (1) Yes - Related Data On Oral Contraceptives: No Home Medications Medication Instructions Recorded Confirmed Last Taken Aspirin 81 mg PO DAILY 12/08/19 12/08/19 Unknown Coreg 25 mg PO BID 12/08/19 12/08/19 Unknown Pepcid 20 mg PO DAILY 12/08/19 12/08/19 Unknown Plaquenil 200 mg PO BID 12/08/19 12/08/19 Unknown Plavix 75 mg PO DAILY 12/08/19 12/08/19 Unknown Previous Rx's Medication Instructions Recorded Last Taken Type sevelamer HCL [Renagel] 800 mg PO TIDWM #30 tablet 06/24/15 1 Day Ago Rx ~07/18/17 Ondansetron [Zofran ODT TAB] 4 mg PO Q8HR #10 tab.rapdis 07/04/19 Unknown Rx Allergies Allergy/AdvReac Type Severity Reaction Status Date / Time acetaminophen [From Percocet] Allergy Itching Verified 12/07/19 20:32 hydrocodone bitartrate Allergy Itching Verified 03/22/19 15:37 [From Vicodin] morphine Allergy Itching Verified 12/07/19 20:32 oxycodone Allergy Itching Verified 03/23/19 00:35 tramadol Allergy Hives Verified 03/22/19 15:37 metoclopramide HCl AdvReac Unknown Verified 03/22/19 15:37 [From Reglan] Heart Score - HEART Score History: Moderately suspicious EKG: Non-specific Age: < 45 Risk factors: > 3 risk factors or hx of atherosclerotic disease Troponin: < normal limit HEART Score: 4 ED Review of Systems ROS: Stated complaint: CHEST PAIN SOB BLOOD IN URINE Other details as noted in HPI Constitutional: denies: chills, fever Eyes: denies: eye pain, eye discharge, vision change ENT: denies: ear pain, throat pain Respiratory: denies: cough, shortness of breath, wheezing Cardiovascular: chest pain. denies: palpitations Endocrine: no symptoms reported Gastrointestinal: denies: abdominal pain, nausea, diarrhea Genitourinary: denies: urgency, dysuria, discharge Musculoskeletal: denies: back pain, joint swelling, arthralgia Skin: denies: rash, lesions Neurological: denies: headache, weakness, paresthesias Psychiatric: denies: anxiety, depression Hematological/Lymphatic: denies: easy bleeding, easy bruising ED Past Medical Hx - Past Medical History Previous Medical History?: Yes Hx Hypertension: Yes (EF NORMAL) Hx Heart Attack/AMI: Yes (2 stents on Plavix&ASA) Hx Congestive Heart Failure: Yes Hx Diabetes: No Hx Liver Disease: No Hx Renal Disease: Yes (hemodialysis ) Hx Sickle Cell Disease: ( ) Hx Arthritis: Yes Hx Seizures: No Hx Asthma: No Hx COPD: No Hx HIV: No Additional medical history: Lupus, 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 - Surgical History Past Surgical History?: Yes Hx Coronary Stent: Yes (2011 x1, 2018 x1) Hx Cholecystectomy: Yes Additional Surgical History: bilat total hips, right av fistula, , Dialysis chest access - Family History Family history: no significant - Social History Smoking Status: Never Smoker Substance Use Type: None - Medications Home Medications: Home Medications Medication Instructions Recorded Confirmed Last Taken Type sevelamer HCL [Renagel] 800 mg PO TIDWM #30 tablet 06/24/15 12/08/19 1 Day Ago Rx ~07/18/17 Ondansetron [Zofran ODT TAB] 4 mg PO Q8HR #10 tab.rapdis 07/04/19 12/08/19 Unknown Rx Aspirin 81 mg PO DAILY 12/08/19 12/08/19 Unknown History Coreg 25 mg PO BID 12/08/19 12/08/19 Unknown History Pepcid 20 mg PO DAILY 12/08/19 12/08/19 Unknown History Plaquenil 200 mg PO BID 12/08/19 12/08/19 Unknown History Plavix 75 mg PO DAILY 12/08/19 12/08/19 Unknown History ED Physical Exam - General Limitations: No Limitations General appearance: alert, in no apparent distress - Head Head exam: Present: atraumatic, normocephalic - Eye Eye exam: Present: normal appearance - ENT ENT exam: Present: mucous membranes moist - Neck Neck exam: Present: normal inspection - Respiratory Respiratory exam: Present: normal lung sounds bilaterally. Absent: respiratory distress, wheezes, rales - Cardiovascular Cardiovascular Exam: Present: regular rate, normal rhythm. Absent: systolic murmur, diastolic murmur, rubs, gallop - GI/Abdominal GI/Abdominal exam: Present: soft, normal bowel sounds. Absent: distended, tenderness, guarding - Extremities Exam Extremities exam: Present: normal inspection - Back Exam Back exam: Present: normal inspection - Neurological Exam Neurological exam: Present: alert, oriented X3 - Psychiatric Psychiatric exam: Present: normal affect, normal mood - Skin Skin exam: Present: warm, dry, intact, normal color. Absent: rash ED Course Vital Signs 01/07/20 01:42 Temperature 98.3 F Pulse Rate 84 Respiratory 18 Rate Blood Pressure 183/112 O2 Sat by Pulse 100 Oximetry - Reevaluation(s) Reevaluation #1: Patient has received the hyperkalemia protocol. Patient states her chest pain is worsening. Patient will be given pain medications. 01/07/20 04:46 Reevaluation #2: I discussed all results with patient. I discussed plan of care with patient. Patient agrees with plan of care and admission. Patient to be admitted to the hospitalist service. 01/07/20 05:07 - Consultations Consultation #1: Hospitalist consulted for admission. Hospitalist admit patient. 01/07/20 05:07 Consultation #2: Nephrology consulted. Nephrology agrees with plan of care and will see the patient in the morning. 01/07/20 05:27 PRADEEP score - Pradeep Score Age > 65: (0) No Aspirin use within the Past 7 Days: (1) Yes 3 or more CAD Risk Factors: (1) Yes 2 or more Angina events in past 24 hrs: (0) No Known CAD with more than 50% Stenosis: (0) No Elevated Cardiac Markers: (1) Yes ST Deviation Greater than 0.5mm: (0) No PRADEEP Score: 3 ED Medical Decision Making - Lab Data Result diagrams: 01/07/20 02:09 01/07/20 02:09 - EKG Data -: EKG Interpreted by Me EKG shows normal: sinus rhythm, intervals, QRS complexes, ST-T waves Rate: normal - EKG Data Interpretation: other (axis deviation) - Radiology Data Radiology results: report reviewed, image reviewed CHEST 1 VIEW INDICATION / CLINICAL INFORMATION: Chest Pain. COMPARISON: 12/07/2019 FINDINGS: SUPPORT DEVICES: Dialysis catheter remains on the right. HEART / MEDIASTINUM: No significant abnormality. LUNGS / PLEURA: No significant pulmonary or pleural abnormality. No pneumothorax. ADDITIONAL FINDINGS: No significant additional findings. IMPRESSION: 1. No significant change - Medical Decision Making Patient is a 34-year-old female that presents emergency room for complaints of chest pain. Patient initial cardiac work-up negative. Patient's labs unremarkable except for finding consistent with end-stage renal disease and hyperkalemia. Patient's potassium greater than 6. Patient given the hyperkale albina protocol. Nephrology consulted. Patient admitted to the hospitalist service. Patient admitted to the telemetry floor. Patient admitted to the hospitalist service to rule out ACS and further evaluation and treatment. Patient's chest x-ray negative. Patient EKG shows no acute findings. - Differential Diagnosis ACS, hyperkalemia, chest pain, CAD, end-stage renal disease Critical Care Time: Yes Critical care time in (mins) excluding proc time.: 35 Critical care attestation.: If time is entered above; I have spent that time in minutes in the direct care of this critically ill patient, excluding procedure time. Critical Care Time: 35 minutes ED Disposition Clinical Impression: ESRD (end stage renal disease) on dialysis, Hyperkalemia, Acute hyperkalemia Chest pain Qualifiers: Chest pain type: unspecified Qualified Code(s): R07.9 - Chest pain, unspecified Disposition: 09 OP ADMIT IP TO THIS HOSP Is pt being admited?: Yes Does the pt Need Aspirin: No Condition: Critical Time of Disposition: 05:09
[2020-01-07] MEDS ORDERED: CALCIUM CHLORIDE 1,000 MG in SODIUM CHLORIDE 0.9% 100 ML IV ONE (05:00)
[2020-01-07] MEDS ORDERED: HYDROmorphone 1 MG/1 ML INJ ONE ×2 (05:17→05:27)
[2020-01-07] MEDS ORDERED: HYDROmorphone 2 MG/1 ML INJ IV ONE (05:21)
[2020-01-07] MEDS ORDERED: ONDANSETRON 4 MG/2 ML INJ ONE (05:22)
[2020-01-07] MEDS ORDERED: HYDROmorphone 2 MG/1 ML INJ IM ONE (07:05)
[2020-01-07] MEDS ORDERED: ASPIRIN 325 MG TAB ONE (07:34)
[2020-01-07] MEDS ORDERED: SODIUM CHLORIDE 0.9% 100 ML IV PRN ×3 (08:50→11:57)
--- NOTE | 2020-01-07 09:30 | Consultation ---
History of Present Illness - Reason for Consult Consult date: 01/07/20 end stage renal disease, hyperkalemia - History of Present Illness This is a 34 year old female patient with pmh significant for ESRD on HD ( at [facility]), lupus, [place], CAD, CHF, multiple admissions for hyperkalemia and noncompliance with dialysis. Patient has a right arm AVF but reports she has had multiple blood clots and has been dialyzing through right chest permcath for past several months. She presented to the ED with complaints of chest pain and some shortness of breath. She denies fevers, chills, abdominal pain, pain or burning with urination, hematuria, rash, or edema. She admits to missing some treatments and unclear when last HD treatment was outpatient. She denies use of NSAIDs. Denies smoking, alcohol, or drug use. Labs significant for potassium 6.2, bicarb 17, creatinine 11.7. Her blood pressure is also elevated at time of consultation. Chest xray and EKG were negative for any acute fin dings. She received hyperkalemia protocol in ED prior to receiving HD. She was seen and examined at the bedside in the dialysis unit while receiving treatment. Nephrology was consulted for further evaluation and treatment of end stage renal disease requiring dialysis and hyperkalemia. Past History Past Medical History: CAD, dialysis, heart failure, other (lupus, medical noncompliance) Past Surgical History: Other (2 stents placed) Medications and Allergies Allergies Allergy/AdvReac Type Severity Reaction Status Date / Time acetaminophen [From Percocet] Allergy Itching Verified 12/07/19 20:32 hydrocodone bitartrate Allergy Itching Verified 03/22/19 15:37 [From Vicodin] morphine Allergy Itching Verified 12/07/19 20:32 oxycodone Allergy Itching Verified 03/23/19 00:35 tramadol Allergy Hives Verified 03/22/19 15:37 metoclopramide HCl AdvReac Unknown Verified 03/22/19 15:37 [From Reglan] Home Medications Medication Instructions Recorded Confirmed Last Taken Type sevelamer HCL [Renagel] 800 mg PO TIDWM #30 tablet 06/24/15 12/08/19 1 Day Ago Rx ~07/18/17 Ondansetron [Zofran ODT TAB] 4 mg PO Q8HR #10 tab.rapdis 07/04/19 12/08/19 Unknown Rx Aspirin 81 mg PO DAILY 12/08/19 12/08/19 Unknown History Coreg 25 mg PO BID 12/08/19 12/08/19 Unknown History Pepcid 20 mg PO DAILY 12/08/19 12/08/19 Unknown History Plaquenil 200 mg PO BID 12/08/19 12/08/19 Unknown History Plavix 75 mg PO DAILY 12/08/19 12/08/19 Unknown History Active Meds: Active Medications Sodium Chloride (Nacl 0.9%) 100 mls @ 999 mls/hr IV JOSEPH PRN PRN Reason: Hypotension Review of Systems Constitutional: no weight loss, no weight gain, no fever, no chills Ears, nose, mouth and throat: no nasal discharge, no epistaxis Cardiovascular: chest pain, no rapid/irregular heart beat, no lightheadedness, no shortness of breath Respiratory: no cough, no shortness of breath, no wheezing Gastrointestinal: no abdominal pain, no nausea, no vomiting, no diarrhea Musculoskeletal: no muscle weakness, no muscle cramps Integumentary: no rash, no sores, no wounds Exam - Vital Signs Vital signs: Vital Signs Temp Pulse Resp BP Pulse Ox 98.3 F 84 18 183/112 100 01/07/20 01:42 01/07/20 01:42 01/07/20 01:42 01/07/20 01:42 01/07/20 01:42 - General Appearance General appearance: well-developed, well-nourished, appears stated age EENT: ATNC, PERRL, mucous membranes moist Neck: Present: neck supple, trachea midline Respiratory: Clear to Ascultation, Normal Exam Heart: regular, normal heart rate, S1S2, no murmurs Gastrointestinal: Present: normal, normoactive bowel sounds. Absent: tenderness, distended, masses Integumentary: no rash, warm and dry, other (R chest permcath, R arm AVF) Neurologic: no focal deficit, no asterixis, alert and oriented x3 Musculoskeletal: Present: other (FROM all extremities, no edema noted) Psychiatric: mood/affect appropriate, cooperative Results - Lab Results 01/07/20 02:09 01/07/20 02:09 Most recent lab results Calcium 8.8 mg/dL (8.4-10.2) 01/07/20 02:09 Assessment and Plan 1. ESRD requiring HD: Maintenance HD T// at [facility]. History of noncompliance with HD treatments. Multiple admissions related to volume overload 2/2 missed HD. Last outpatient HD unclear. R arm AVF not in use 2/2 blood clots per patient. R chest permcath is HD access. Hemodialysis: 01/06. 2. FEN: Hyperkalemia, improving, HD planned, monitor. Metabolic acidosis, HD planned, monitor. Monitor lytes. 3. Chest pain: S/p stent placement September 2019. Cards consulted. 4. Hypertension: Medication noncompliance. 5. Lupus: 6. CHF: Appears compensated.
--- NOTE | 2020-01-07 10:43 | History and Physical Report ---
History of Present Illness Date of examination: 01/07/20 Date of admission: 01/07/20 05:17 History of present illness: Patient is a 34-year-old female that presents emergency room with complaints of chest pain x1 day. Patient states her chest pain started yesterday. Patient states is in her left chest. Patient states is nonradiating. Patient states her chest pain is a sharp pain. Patient rates as an 8 out of 10. Patient states her chest pain is better with rest and worse with exertion. Patient states she feels like her potassium is high. Patient dates has a history of [place], CAD, end-stage renal disease, CHF, 2 stents, dialysis,. Patient states she has had multiple bouts of hyperkalemia. Medications and Allergies Allergies Allergy/AdvReac Type Severity Reaction Status Date / Time acetaminophen [From Percocet] Allergy Itching Verified 12/07/19 20:32 hydrocodone bitartrate Allergy Itching Verified 03/22/19 15:37 [From Vicodin] morphine Allergy Itching Verified 12/07/19 20:32 oxycodone Allergy Itching Verified 03/23/19 00:35 tramadol Allergy Hives Verified 03/22/19 15:37 metoclopramide HCl AdvReac Unknown Verified 03/22/19 15:37 [From Reglan] Home Medications Medication Instructions Recorded Confirmed Last Taken Type sevelamer HCL [Renagel] 800 mg PO TIDWM #30 tablet 06/24/15 12/08/19 1 Day Ago Rx ~07/18/17 Ondansetron [Zofran ODT TAB] 4 mg PO Q8HR #10 tab.rapdis 07/04/19 12/08/19 Unknown Rx Aspirin 81 mg PO DAILY 12/08/19 12/08/19 Unknown History Coreg 25 mg PO BID 12/08/19 12/08/19 Unknown History Pepcid 20 mg PO DAILY 12/08/19 12/08/19 Unknown History Plaquenil 200 mg PO BID 12/08/19 12/08/19 Unknown History Plavix 75 mg PO DAILY 12/08/19 12/08/19 Unknown History Active Meds: Active Medications Sodium Chloride (Nacl 0.9%) 100 mls @ 999 mls/hr IV JOSEPH PRN PRN Reason: Hypotension Exam - Constitutional Vitals: Temp Pulse Resp BP Pulse Ox 98.3 F 88 17 167/107 100 01/07/20 01:42 01/07/20 07:58 01/07/20 07:58 01/07/20 07:58 01/07/20 07:58 Results - Labs CBC & Chem 7: 01/07/20 02:09 01/07/20 02:09 Labs: Abnormal lab results 01/07/20 01/07/20 Range/Units 02:09 02:09 WBC 12.8 H (4.5-11.0) K/mm3 RBC 3.57 L (3.65-5.03) M/mm3 MCV 98 H (79-97) fl RDW 17.0 H (13.2-15.2) % Lymph % (Auto) 12.6 L (13.4-35.0) % Seg Neutrophils % 80.9 H (40.0-70.0) % Seg Neutrophils # 10.4 H (1.8-7.7) K/mm3 Potassium 6.2 H* (3.6-5.0) mmol/L Carbon Dioxide 17 L (22-30) mmol/L BUN 76 H (7-17) mg/dL Creatinine 11.7 H (0.7-1.2) mg/dL Glucose 105 H (65-100) mg/dL Assessment and Plan /Severe Hyperkalemia with ESRD, missed HD Status post hyperkalemia cocktail, follow potassium level Renal was consulted to see the patient /Atypical chest pain, acute on chronic/ CAD Check cardiac enzymes, status post recent stenting September Consult cardiology, continue outpatient medications /Hypertension, uncontrolled Continue outpatient medications Add IV hydralazine as needed for blood pressure control Lupus, stable CHF, stable Dvt Px, heparin
[2020-01-07] MEDS ORDERED: diphenhydrAMINE 50 MG/ML VIAL ONE (11:08)
[2020-01-07 11:34] LABS: Hepatitis B Surface Antigen Non-Reactive (Negative); Hepatitis C Virus Antibody Non-Reactive (NonReactive)
[2020-01-07] MEDS ORDERED: diphenhydrAMINE 50 MG/ML VIAL IV PRN (11:57)
[2020-01-07] MEDS ORDERED: SODIUM CHLORIDE*PRIMING MACHINE ONLY FOR DIALYSIS MC ONE (12:05)
[2020-01-07] MEDS ORDERED: ACETAMINOPHEN 325 MG TAB PO PRN (14:30)
[2020-01-07 17:05] VITALS: BP 126/77
== END 2020-01-07 14:05 | disposition left against medical advice (07) | DRG 640 ==
LOC: ED 01:36 → 4A 05:17
PROVIDERS: ADMIT Hospitalist; ATTEND Internal Medicine
PROC: 5A1D70Z Performance of Urinary Filtration, Intermittent, Less than 6 Hours Per Day (ICD-10-PCS; principal; 2020-01-07)
DX: E87.5 Hyperkalemia (principal); N18.6 End stage renal disease; I25.2 Old myocardial infarction; I25.10 Atherosclerotic heart disease of native coronary artery without angina pectoris; I13.2 Hypertensive heart and chronic kidney disease with heart failure and with stage 5 chronic kidney disease, or end stage renal disease; I50.9 Heart failure, unspecified; Z99.2 Dependence on renal dialysis; Z95.1 Presence of aortocoronary bypass graft; Z90.49 Acquired absence of other specified parts of digestive tract; Z91.15 Patient's noncompliance with renal dialysis; Z88.6 Allergy status to analgesic agent; Z88.5 Allergy status to narcotic agent; Z88.8 Allergy status to other drugs, medicaments and biological substances; I11.0 Hypertensive heart disease with heart failure
CPT/HCPCS: 36415; 71045; 80048; 80074; 84484; 85025; 93005; 93010; G0378; J1170; J1200; J1815; J2270; J2405; J7030

== ENCOUNTER 2020-01-15 17:32 | Emergency (ER) | payer MEDICAID | END 2020-01-15 19:00 | disposition left against medical advice (07) | LOC: ED 17:32 | DX: R05 Cough (principal); Z53.21 Procedure and treatment not carried out due to patient leaving prior to being seen by health care provider ==

== ENCOUNTER 2020-02-29 15:44 | Inpatient (IN) | payer MEDICAID ==
[2020-02-29] MEDS ORDERED: ASPIRIN 325 MG TAB PO ONE (15:53)
--- NOTE | 2020-02-29 16:23 | XRay Report ---
CHEST 1 VIEW 02/29/2020 4:09 PM INDICATION / CLINICAL INFORMATION: MAIN: Chest Pain for a couple of days. COMPARISON: Chest x-ray 01/07/2020 FINDINGS: SUPPORT DEVICES: Right internal jugular dialysis catheter again overlies the SVC. HEART / MEDIASTINUM: No significant abnormality. LUNGS / PLEURA: No significant pulmonary or pleural abnormality. No pneumothorax. ADDITIONAL FINDINGS: No significant additional findings. IMPRESSION: 1. No acute findings. Signer Name: Chance Mckay MD Signed: 02/29/2020 4:18 PM Workstation Name: [id number]
[2020-02-29 17:00] LABS: Hematocrit 44.2 % (30.3-42.9); Hemoglobin 14.1 gm/dl (10.1-14.3); Mean Corpuscular HGB Conc 32 % (30-34); Mean Corpuscular Volume 98 fl (79-97); Red Cell Distribution Width 16.8 % (13.2-15.2)
[2020-02-29 17:01] LABS: Platelet Count 210 K/mm3 (140-440)
[2020-02-29 17:05] LABS: Basophils # (Auto) 0.1 K/mm3 (0.0-0.1); Basophils % (Auto) 1.1 % (0.0-1.8); Eosinophils # (Auto) 0.1 K/mm3 (0.0-0.4); Eosinophils % (Auto) 1.8 % (0.0-4.3); Lymphocytes # (Auto) 1.8 K/mm3 (1.2-5.4); Lymphocytes % (Auto) 25.8 % (13.4-35.0); Monocytes # (Auto) 0.9 K/mm3 (0.0-0.8); Monocytes % (Auto) 12.9 % (0.0-7.3)
[2020-02-29 17:23] LABS: Calcium 10.3 mg/dL (8.4-10.2)
[2020-02-29] MEDS ORDERED: ONDANSETRON 4 MG/2 ML INJ IV ONE (18:13)
[2020-02-29] MEDS ORDERED: INSULIN REGULAR, HUMAN 100 UNITS/1 ML IV ONE (19:32)
[2020-02-29] MEDS ORDERED: DEXTROSE 50% IN WATER (25GM) 50 ML SYRINGE IV ONE (19:32)
[2020-02-29] MEDS ORDERED: HYDROmorphone 1 MG/1 ML INJ IV ONE (19:35)
[2020-02-29] MEDS ORDERED: CALCIUM GLUCONATE 1,000 MG in SODIUM CHLORIDE 0.9% 100 ML IV ONE (19:37)
--- NOTE | 2020-02-29 21:27 | Nuclear Medicine Report ---
NUCLEAR MEDICINE PERFUSION LUNG SCAN INDICATION: chest pain. TECHNIQUE: 5.2 mCi of Tc-99m MAA were given by IV. COMPARISON: Chest radiograph dated same day. FINDINGS: PERFUSION: No significant perfusion defects. ADDITIONAL FINDINGS: None. IMPRESSION: 1. Low probability for pulmonary embolism. Signer Name: Chance Mckay MD Signed: 02/29/2020 9:22 PM Workstation Name: [id number]
[2020-02-29] MEDS ORDERED: SODIUM POLYSTYRENE 15 GM/60 ML ORAL LIQD PO ONE (22:20)
[2020-02-29] MEDS ORDERED: ALBUTEROL 2.5 MG/3 ML NEBU IH ONE (22:26)
[2020-02-29] MEDS ORDERED: SODIUM POLYSTYRENE 15 GM/60 ML ORAL LIQD PR ONE (22:27)
--- NOTE | 2020-02-29 22:33 | Emergency Department Report ---
ED Chest Pain HPI - General Chief Complaint: Chest Pain Stated Complaint: CHEST/BACK PAIN Time Seen by Provider: 02/29/20 17:31 Source: patient Mode of arrival: Ambulatory Limitations: No Limitations - History of Present Illness Initial Comments: 34-year-old female with history of CAD with stents x2, ESRD, CHF, lupus, hypertension, presents to ED with report of chest pain x2 days. Patient states pain is sharp and left-sided. She denies any shortness of breath, fever, cough, nausea or vomiting. Patient is [facility], and was dialyzed on yesterday. She is also reporting left lower back pain that has been going on for now. She states this pain radiates down the back of her left leg and into her calf. 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[place]) Complaint: chest pain -: days(s) (2) Onset: during rest Pain Location: left chest Severity: moderate Severity scale (0 -10): 4 Quality: sharp Consistency: constant Improves With: nothing Worsens With: nothing, palpation re: denies: nausea, vomting, diaphoresis, dyspnea Other Symptoms: denies: cough, fever, leg swelling - Related Data Home Medications Medication Instructions Recorded Confirmed Last Taken Aspirin 81 mg PO DAILY 12/08/19 02/29/20 Unknown Coreg 25 mg PO BID 12/08/19 02/29/20 Unknown Pepcid 20 mg PO DAILY 12/08/19 02/29/20 Unknown Plaquenil 200 mg PO BID 12/08/19 02/29/20 Unknown Plavix 75 mg PO DAILY 12/08/19 02/29/20 Unknown Previous Rx's Medication Instructions Recorded Last Taken Type sevelamer HCL [Renagel] 800 mg PO TIDWM #30 tablet 06/24/15 1 Day Ago Rx ~07/18/17 Allergies Allergy/AdvReac Type Severity Reaction Status Date / Time acetaminophen [From Percocet] Allergy Itching Verified 12/07/19 20:32 hydrocodone bitartrate Allergy Itching Verified 03/22/19 15:37 [From Vicodin] morphine Allergy Itching Verified 12/07/19 20:32 oxycodone Allergy Itching Verified 03/23/19 00:35 tramadol Allergy Hives Verified 03/22/19 15:37 metoclopramide HCl AdvReac Unknown Verified 03/22/19 15:37 [From Reglan] Heart Score - HEART Score History: Slightly suspicious EKG: Normal Age: < 45 Risk factors: > 3 risk factors or hx of atherosclerotic disease Troponin: < normal limit HEART Score: 2 ED Review of Systems ROS: Stated complaint: CHEST/BACK PAIN Other details as noted in HPI Comment: All other systems reviewed and negative Constitutional: denies: chills, fever Respiratory: denies: cough, shortness of breath Cardiovascular: chest pain Musculoskeletal: back pain ED Past Medical Hx - Past Medical History Previous Medical History?: Yes Hx Hypertension: Yes (EF NORMAL) Hx Heart Attack/AMI: Yes (2 stents on Plavix&ASA) Hx Congestive Heart Failure: Yes Hx Diabetes: No Hx Liver Disease: No Hx Renal Disease: Yes (hemodialysis ) Hx Sickle Cell Disease: ( ) Hx Arthritis: Yes Hx Seizures: No Hx Asthma: No Hx COPD: No Hx HIV: No Additional medical history: Lupus, 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 - Surgical History Past Surgical History?: Yes Hx Coronary Stent: Yes (2011 x1, 2018 x1) Hx Cholecystectomy: Yes Additional Surgical History: bilat total hips, right av fistula, , Dialysis chest access, permcath - Social History Smoking Status: Former Smoker Substance Use Type: None - Medications Home Medications: Home Medications Medication Instructions Recorded Confirmed Last Taken Type sevelamer HCL [Renagel] 800 mg PO TIDWM #30 tablet 06/24/15 02/29/20 1 Day Ago Rx ~07/18/17 Aspirin 81 mg PO DAILY 12/08/19 02/29/20 Unknown History Coreg 25 mg PO BID 12/08/19 02/29/20 Unknown History Pepcid 20 mg PO DAILY 12/08/19 02/29/20 Unknown History Plaquenil 200 mg PO BID 12/08/19 02/29/20 Unknown History Plavix 75 mg PO DAILY 12/08/19 02/29/20 Unknown History ED Physical Exam - General Limitations: No Limitations General appearance: alert, in no apparent distress - Head Head exam: Present: atraumatic, normocephalic - Eye Eye exam: Present: normal appearance - ENT ENT exam: Present: mucous membranes moist - Neck Neck exam: Present: normal inspection - Respiratory Respiratory exam: Present: normal lung sounds bilaterally, chest wall tenderness (left lateral chest wall). Absent: respiratory distress - Cardiovascular Cardiovascular Exam: Present: regular rate, normal rhythm - GI/Abdominal GI/Abdominal exam: Present: soft. Absent: distended, tenderness - Extremities Exam Extremities exam: Present: normal inspection - Neurological Exam Neurological exam: Present: alert, oriented X3 - Psychiatric Psychiatric exam: Present: normal affect, normal mood - Skin Skin exam: Present: warm, dry, intact, normal color. Absent: rash ED Course Vital Signs 02/29/20 02/29/20 02/29/20 15:47 17:47 19:00 Temperature 98.2 F Pulse Rate 91 H 77 76 Pulse Rate [ Anterior Bilateral Bases ] Pulse Rate [ Anterior Bilateral Throughout] Respiratory 18 15 13 Rate Respiratory Rate [Anterior Bilateral Bases ] Respiratory Rate [Anterior Bilateral Throughout] Blood Pressure 153/49 143/97 Blood Pressure 136/75 [Left] O2 Sat by Pulse 98 96 100 Oximetry 02/29/20 02/29/20 02/29/20 19:30 20:00 20:30 Temperature Pulse Rate 73 79 84 Pulse Rate [ Anterior Bilateral Bases ] Pulse Rate [ Anterior Bilateral Throughout] Respiratory 16 17 22 Rate Respiratory Rate [Anterior Bilateral Bases ] Respiratory Rate [Anterior Bilateral Throughout] Blood Pressure 140/96 150/104 160/106 Blood Pressure [Left] O2 Sat by Pulse 100 100 98 Oximetry 02/29/20 02/29/20 02/29/20 21:12 21:30 22:00 Temperature Pulse Rate 81 72 72 Pulse Rate [ Anterior Bilateral Bases ] Pulse Rate [ Anterior Bilateral Throughout] Respiratory 9 L 15 Rate Respiratory Rate [Anterior Bilateral Bases ] Respiratory Rate [Anterior Bilateral Throughout] Blood Pressure 155/98 155/98 Blood Pressure [Left] O2 Sat by Pulse 100 99 Oximetry 02/29/20 02/29/20 02/29/20 22:30 23:18 23:20 Temperature Pulse Rate 67 Pulse Rate [ 76 Anterior Bilateral Bases ] Pulse Rate [ 69 Anterior Bilateral Throughout] Respiratory 13 Rate Respiratory 14 Rate [Anterior Bilateral Bases ] Respiratory 17 Rate [Anterior Bilateral Throughout] Blood Pressure 146/104 Blood Pressure [Left] O2 Sat by Pulse 100 97 Oximetry 02/29/20 23:52 Temperature Pulse Rate 83 Pulse Rate [ Anterior Bilateral Bases ] Pulse Rate [ Anterior Bilateral Throughout] Respiratory Rate Respiratory Rate [Anterior Bilateral Bases ] Respiratory Rate [Anterior Bilateral Throughout] Blood Pressure 184/113 Blood Pressure [Left] O2 Sat by Pulse Oximetry - Consultations Consultation #1: 02/29/20 22:35 Spoke w/ Dr Pinto. Since potassium now 5.8, recommends repeating the insulin and D50 doses. Add albuterol and kayexalate. Will dialyze in the AM PRADEEP score - Pradeep Score Age > 65: (0) No Aspirin use within the Past 7 Days: (1) Yes 3 or more CAD Risk Factors: (1) Yes 2 or more Angina events in past 24 hrs: (0) No Known CAD with more than 50% Stenosis: (0) No Elevated Cardiac Markers: (0) No ST Deviation Greater than 0.5mm: (0) No PRADEEP Score: 2 ED Medical Decision Making - Lab Data Result diagrams: 02/29/20 16:26 02/29/20 21:14 - EKG Data -: EKG Interpreted by Me EKG shows normal: sinus rhythm, axis, intervals, QRS complexes, ST-T waves Rate: normal - EKG Data Interpretation: no acute changes - Radiology Data Radiology results: report reviewed, image reviewed - Medical Decision Making 34-year-old female with history of CAD with stents, but also multiple admissions with atypical chest pain. Patient has chest wall tenderness on exam today. EKG is unremarkable, with normal troponin x3. Due to history of lupus, decision was made to obtain VQ scan due to the sharp nature of patient's chest pain. VQ showed low probability for PE. Chemistry showed patient had elevated potassium , despite her report of being dialyzed on yesterday. Patient initially did not want to be admitted for dialysis, states she was given partial hyperkalemia treatment potassium level was repeated. Repeat potassium showed that it was slightly higher at 5.8. Patient agreed to admission. I spoke with Dr. Pinto, microfabrication engineer manager, who will dialyze patient in the morning. Patient was given another dose of insulin, D50, and was also given Kayexalate and albuterol nebs. Patient will be admitted by hospitalist, Dr. Uribe, for further management. - Differential Diagnosis ACS, chest wall pain, PE, sciatica Critical Care Time: Yes Critical care time in (mins) excluding proc time.: 35 Critical care attestation.: If time is entered above; I have spent that time in minutes in the direct care of this critically ill patient, excluding procedure time. Critical Care Time: 35 min ED Disposition Clinical Impression: Chest pain, Hyperkalemia, ESRD needing dialysis Disposition: OP ADMIT IP TO THIS HOSP Is pt being admited?: Yes Condition: Stable Time of Disposition: 22:36
[2020-02-29] MEDS ORDERED: DEXTROSE 50% IN WATER (25GM) 50 ML SYRINGE IV PRN (22:44)
[2020-02-29] MEDS: INSULIN REGULAR, HUMAN 100 UNITS/1 ML IV ONE ×2 (22:46→23:31)
[2020-02-29] MEDS: DEXTROSE 50% IN WATER (25GM) 50 ML SYRINGE IV ONE ×2 (22:47→23:31)
--- NOTE | 2020-02-29 22:47 | History and Physical Report ---
History of Present Illness History of present illness: 34-year-old woman with a history of CAD, status post stent in September 2019, hypertension, CHF, hypertension, lupus, end-stage renal disease on dialysis, Sunday, and Sunday came to the emergency room with complaints of chest pain in the left chest area which she describes as a sharp pain, intermittent for less than 1 minute, intensity 5/10, radiating to left arm, she cannot identify exacerbating factor, relieving with pain medications. She admits to nausea, vomiting, denies shortness of breath, no diaphoresis or palpitation. Cocktail for hyperkalemia was given in the emergency, patient states she did not miss dialysis. Patient is admitted for chest pain, hyperkalem ia Review of systems Constitutional: no fever, no chills, no weight loss Ears, eyes, nose, mouth and throat: no nasal congestion, no nasal discharge, no sinus pressure, no vision change, no red eye. Neck: No neck pain or rigidity. Cardiovascular: no orthopnea, palpitations, no leg swelling Respiratory: No cough, no congestion, no wheezing Gastrointestinal: abdominal pain, hematochezia Genitourinary : no dysuria, frequency , no hematuria Musculoskeletal: no joint swelling or muscle ache Integumentary: no rash, no pruritis Neurological: no parathesias, no numbness, no focal weakness Endocrine: no cold or heat intolerance, no polyuria or polydipsia Hematologic/Lymphatic: no easy bruising, no easy bleeding, no gland swelling Allergic/Immunologic: no urticaria, no angioedema. PAST MEDICAL HISTORY: CAD, hypertension, CHF, hypertension, lupus, end-stage renal disease on dialysis PAST SURGICAL HISTORY: AV fistula, hip replacement 4, cholecystectomy, hernia repair, SOCIAL HISTORY: Denies alcohol, tobacco, drugs FAMILY HISTORY: Hypertension, diabetes Medications and Allergies Allergies Allergy/AdvReac Type Severity Reaction Status Date / Time acetaminophen [From Percocet] Allergy Itching Verified 12/07/19 20:32 hydrocodone bitartrate Allergy Itching Verified 03/22/19 15:37 [From Vicodin] morphine Allergy Itching Verified 12/07/19 20:32 oxycodone Allergy Itching Verified 03/23/19 00:35 tramadol Allergy Hives Verified 03/22/19 15:37 metoclopramide HCl AdvReac Unknown Verified 03/22/19 15:37 [From Reglan] Home Medications Medication Instructions Recorded Confirmed Last Taken Type sevelamer HCL [Renagel] 800 mg PO TIDWM #30 tablet 06/24/15 02/29/20 1 Day Ago Rx ~07/18/17 Aspirin 81 mg PO DAILY 12/08/19 02/29/20 Unknown History Coreg 25 mg PO BID 12/08/19 02/29/20 Unknown History Pepcid 20 mg PO DAILY 12/08/19 02/29/20 Unknown History Plaquenil 200 mg PO BID 12/08/19 02/29/20 Unknown History Plavix 75 mg PO DAILY 12/08/19 02/29/20 Unknown History Exam - Physical Exam Narrative exam: Gen. appearance: Patient lying in bed, no apparent distress HEENT: Normocephalic, atraumatic, pupils equally round and reactive to light, extraocular movement intact, and no sclericterus,. No JVD or thyromegaly or nodule,neck supple, no carotid bruit ,mucous membranes dry, no exudate or erythema Heart: S1, S2, regular rate and rhythm Lungs: Clear to auscultation bilaterally, breathing comfortable Abdomen: Positive bowel sounds, nontender, nondistended, no organomegaly Extremity: No edema, cyanosis, clubbing Skin: No rash, nodules, warm, dry Neuro: Oriented 3, cranial nerves II-12 intact, speech is fluent, motor sensory intact - Constitutional Vitals: Temp Pulse Resp BP Pulse Ox 98.2 F 72 15 160/106 99 02/29/20 15:47 02/29/20 22:00 02/29/20 22:00 02/29/20 20:30 02/29/20 22:00 Results - Labs CBC & Chem 7: 02/29/20 16:26 02/29/20 21:14 Labs: Abnormal lab results 02/29/20 02/29/20 02/29/20 Range/Units 16:26 16:26 21:14 Hct 44.2 H (30.3-42.9) % MCV 98 H (79-97) fl RDW 16.8 H (13.2-15.2) % [place] % (Auto) 12.9 H (0.0-7.3) % [place] # 0.9 H (0.0-0.8) K/mm3 Potassium 5.6 H 5.8 H (3.6-5.0) mmol/L Carbon Dioxide 21 L (22-30) mmol/L BUN 30 H (7-17) mg/dL Creatinine 7.8 H (0.7-1.2) mg/dL Glucose 102 H (65-100) mg/dL Calcium 10.3 H (8.4-10.2) mg/dL - Imaging and Cardiology EKG: image reviewed Chest x-ray: report reviewed Assessment and Plan V/Q low probability Assessment atypical chest pain, acute on chronic/ CAD Check cardiac enzymes, Consult cardiology, continue outpatient medications Severe Hyperkalemia/ESERD Status post hyperkalemia cocktail, follow potassium level Renal was consulted to see the patient Hypertension, uncontrolled Continue outpatient medications Add IV hydralazine as needed for blood pressure control Lupus, stable CHF, stable DVT prophylaxis
[2020-02-29] MEDS ORDERED: HYDROmorphone 1 MG/1 ML INJ ONE (23:34)
[2020-02-29] MEDS: HYDROmorphone 1 MG/1 ML INJ IV PRN (23:36)
[2020-02-29] MEDS ORDERED: hydrALAZINE 20 MG/1 ML INJ IV PRN (23:46)
[2020-02-29] MEDS ORDERED: cloNIDine 0.2 MG TAB ONE (23:49)
[2020-02-29] MEDS ORDERED: cloNIDine 0.2 MG TAB PO ONE (23:50)
[2020-03-01] MEDS: HYDROmorphone 1 MG/1 ML INJ IV PRN ×4 (04:45→21:47)
[2020-03-01] MEDS: ONDANSETRON 4 MG/2 ML INJ IV PRN ×2 (04:46→21:47)
[2020-03-01 05:14] LABS: Basophils % (Auto) 0.3 % (0.0-1.8); Eosinophils # (Auto) 0.1 K/mm3 (0.0-0.4); Hematocrit 41.8 % (30.3-42.9); Hemoglobin 13.4 gm/dl (10.1-14.3); Lymphocytes # (Auto) 1.8 K/mm3 (1.2-5.4); Lymphocytes % (Auto) 22.5 % (13.4-35.0); Mean Corpuscular HGB Conc 32 % (30-34); Mean Corpuscular Volume 97 fl (79-97); Monocytes # (Auto) 0.9 K/mm3 (0.0-0.8); Monocytes % (Auto) 11.6 % (0.0-7.3); Platelet Count 200 K/mm3 (140-440); Red Blood Count 4.32 M/mm3 (3.65-5.03); Red Cell Distribution Width 16.5 % (13.2-15.2)
[2020-03-01 05:28] LABS: Calcium 10.7 mg/dL (8.4-10.2)
[2020-03-01] MEDS: INSULIN LISPRO 100 UNIT/ML SUB-Q SCH ×4 (08:27→22:00)
[2020-03-01] MEDS: ENOXAPARIN 30 MG/0.3 ML INJ SUB-Q SCH (09:43)
--- NOTE | 2020-03-01 09:58 | Consultation ---
History of Present Illness Consult date: 03/01/20 Requesting physician: MILAGROS HERNANDEZ Consult reason: chest pain History of present illness: The patient is a 34 year old female with a history of CAD s/p PCI, HTN, ESRD on HD, lupus, recurrent atypical chest pain, and noncompliance. She presented with complaints of chest pain for 2 days prior to arrival. She states that her chest pain is located mostly on the left side of her ribcage by her left breast. She has been palpating the area and noticed a painful "knot" in this area. She reports that she had a lipoma removed from that area previously and is wondering if she needs another surgery to remove this "knot". The pain in that area is aggravated by palpation and by lying on her left side. She states that her chest pain "isn't heart pain". She is noted to have a small soft tissue mass in this area on examination. She denies any SOB, palpitations, diaphoresis, dizziness or syncope. She had some nausea and vomiting last night, although she states that this is normal for her. Following arrival to ED, she was found to have hypertensive urgency and hyperkalemia. Pt reports compliance with home medication regimen and dialysis. Of note, pt was seen here by our group in both 03/2019 and 12/2019 for evaluation of chest pain and stress test was recommended both times and pt ultimately declined any further cardiac testing both times. In 06/2014, she underwent cardiac cath and PCI of 90% mid LAD lesion with a STEVEN at [facility]. Repeat cath in 06/2015 showed patent LAD stent and otherwise normal coronaries. Lexiscan MPI stress test done 01/2018 was negative for ischemia. Echo done 03/2019 showed EF 55-60%, mild LVH, impaired relaxation, negative bubble study. Past History Past Medical History: other (as per HPI) Medications and Allergies Allergies Allergy/AdvReac Type Severity Reaction Status Date / Time acetaminophen [From Percocet] Allergy Itching Verified 12/07/19 20:32 hydrocodone bitartrate Allergy Itching Verified 03/22/19 15:37 [From Vicodin] morphine Allergy Itching Verified 12/07/19 20:32 oxycodone Allergy Itching Verified 03/23/19 00:35 tramadol Allergy Hives Verified 03/22/19 15:37 metoclopramide HCl AdvReac Unknown Verified 03/22/19 15:37 [[facility] Home Medications Medication Instructions Recorded Confirmed Last Taken Type sevelamer HCL [Renagel] 800 mg PO TIDWM #30 tablet 06/24/15 02/29/20 1 Day Ago Rx ~07/18/17 Aspirin 81 mg PO DAILY 12/08/19 02/29/20 Unknown History Coreg 25 mg PO BID 12/08/19 02/29/20 Unknown History Pepcid 20 mg PO DAILY 12/08/19 02/29/20 Unknown History Plaquenil 200 mg PO BID 12/08/19 02/29/20 Unknown History Plavix 75 mg PO DAILY 12/08/19 02/29/20 Unknown History Active Meds: Active Medications Dextrose (D50w (25gm) Syringe) 50 ml IV Q30MIN PRN; Protocol PRN Reason: Hypoglycemia Enoxaparin Sodium (Enoxaparin) 30 mg SUB-Q QDAY [facility] Last Admin: 03/01/20 09:43 Dose: 30 mg Documented by: Hydralazine HCl (Apresoline) 10 mg IV Q6H PRN PRN Reason: Hypertension Hydromorphone HCl (Dilaudid) 0.25 mg IV Q3H PRN PRN Reason: Pain, Moderate (4-6) Last Admin: 03/01/20 08:28 Dose: 0.25 mg Documented by: Insulin Human Lispro (Humalog) 0 unit SUB-Q ACHS [facility]; Protocol Last Admin: 03/01/20 08:27 Dose: Not Given Documented by: Ondansetron HCl (Zofran) 4 mg IV Q4H PRN PRN Reason: Nausea And Vomiting Last Admin: 03/01/20 04:46 Dose: 4 mg Documented by: Sodium Chloride (Sodium Chloride Flush Syringe 10 Ml) 10 ml IV BID [facility] Last Admin: 03/01/20 09:43 Dose: 10 ml Documented by: Sodium Chloride (Sodium Chloride Flush Syringe 10 Ml) 10 ml IV PRN PRN PRN Reason: LINE FLUSH Review of Systems Constitutional: no weight loss, no weight gain, no fever, no chills, no sweats Ears, nose, mouth and throat: no ear pain, no nose pain, no sinus pressure, no sinus pain Cardiovascular: chest pain, high blood pressure, no orthopnea, no palpitations, no rapid/irregular heart beat, no edema, no syncope, no lightheadedness, no shortness of breath, no dyspnea on exertion Respiratory: no cough, no shortness of breath, no dyspnea on exertion, no congestion, no wheezing, no pain on inspiration Gastrointestinal: nausea, vomiting, no abdominal pain, no diarrhea, no constipation, no change in bowel habits Genitourinary Female: no pelvic pain, no flank pain, no dysuria, no urinary frequency, no urgency Musculoskeletal: no neck stiffness, no neck pain, no shooting arm pain, no arm numbness/tingling, no low back pain, no shooting leg pain Integumentary: no rash, no pruritis, no redness, no sores, no wounds Neurological: no head injury, no paralysis, no weakness, no parathesias, no numbness, no tingling, no seizures, no syncope Psychiatric: no anxiety Endocrine: no cold intolerance, no heat intolerance Hematologic/Lymphatic: no easy bruising, no easy bleeding Allergic/Immunologic: no urticaria Physical Examination Vital Signs Temp Pulse Resp BP Pulse Ox 98.2 F 91 H 18 153/49 98 02/29/20 15:47 02/29/20 15:47 02/29/20 15:47 02/29/20 15:47 02/29/20 15:47 General appearance: no acute distress HEENT: Positive: PERRL, Normocephaly, Mucus Membranes Moist Neck: Positive: neck supple, trachea midline Cardiac: Positive: Reg Rate and Rhythm, S1/S2, Systolic Murmur Lungs: Positive: Decreased Breath Sounds Neuro: Positive: Grossly Intact Abdomen: Negative: Tender Skin: Negative: Rash Musculoskeletal: No Pain Extremities: Absent: edema Results 03/01/20 04:20 03/01/20 04:20 CBC 02/29/20 03/01/20 Range/Units 16:26 04:20 WBC 7.1 8.2 (4.5-11.0) K/mm3 RBC 4.50 4.32 (3.65-5.03) M/mm3 Hgb 14.1 13.4 (10.1-14.3) gm/dl Hct 44.2 H 41.8 (30.3-42.9) % Plt Count 210 200 (140-440) K/mm3 Lymph # 1.8 1.8 (1.2-5.4) K/mm3 [place] # 0.9 H 0.9 H (0.0-0.8) K/mm3 Eos # 0.1 0.1 (0.0-0.4) K/mm3 Baso # 0.1 0.0 (0.0-0.1) K/mm3 Comprehensive Metabolic Panel 02/29/20 02/29/20 03/01/20 Range/Units 16:26 21:14 04:20 Sodium 138 139 (137-145) mmol/L Potassium 5.6 H 5.8 H 5.0 (3.6-5.0) mmol/L Chloride 99.2 98.0 (98-107) mmol/L Carbon Dioxide 21 L 23 (22-30) mmol/L BUN 30 H 35 H (7-17) mg/dL Creatinine 7.8 H 9.5 H (0.7-1.2) mg/dL Glucose 102 H 85 (65-100) mg/dL Calcium 10.3 H 10.7 H (8.4-10.2) mg/dL - Imaging and Cardiology Echo: report reviewed (03/2019 showed EF 55-60%, mild LVH, impaired relaxation, negative bubble study. ) Cardiac cath: report reviewed (In 06/2014, she underwent cardiac cath and PCI of 90% mid LAD lesion with a STEVEN at [facility]. Repeat cath in 06/2015 showed patent LAD stent and otherwise normal coronaries. ) EKG: report reviewed, image reviewed EKG interpretations - Telemetry EKG Rhythm: Sinus Rhythm - EKG Sinus rhythms and dysrhythmias: sinus rhythm Assessment and Plan Atypical chest pain AMI ruled out. CXR with NAF. V/Q scan low prob for PE. Pain is located on left side of pt's ribcage by left breast. Pt reports h/o lipoma removal from this area. She is noted to have a small soft tissue mass in this area on examination. Consider further evaluation (? ultrasound) per primary team. D/w Dr. Phan. Lexiscan MPI stress test done 01/2018 was negative for ischemia. Echo done 03/2019 showed EF 55-60%, mild LVH, impaired relaxation, negative bubble study. No plans for additional cardiac w/u at this time. Hyperkalemia / ESRD on HD Serum K+ improved today. Nephrology following. CAD S/p PCI of mid LAD 06/2014; [facility] 06/2015: patent LAD stent, otherwise normal coronaries Resume home ASA, statin, plavix, coreg. Lupus HTN Hyperlipidemia The patient has been seen in conjunction with Dr. Barger who agrees with the assessment and plan of care.
[2020-03-01] MEDS ORDERED: SODIUM CHLORIDE 0.9% 100 ML IV PRN ×2 (10:47→12:00)
[2020-03-01] MEDS ORDERED: diphenhydrAMINE 25 MG CAP PO ONE (11:49)
[2020-03-01] MEDS ORDERED: diphenhydrAMINE 50 MG/ML VIAL IV ONE (12:00)
[2020-03-01 12:38] LABS: Hepatitis B Surface Antigen Non-Reactive (Negative); Hepatitis C Virus Antibody Non-Reactive (NonReactive)
--- NOTE | 2020-03-01 13:52 | Consultation ---
History of Present Illness - Reason for Consult Consult date: 03/01/20 end stage renal disease - History of Present Illness This is a 34 year old female who presented to the hospital for a chief complaint of left-sided chest pain and back pain. Labs on admission revealed Hyperkalemia with a potassium level of 5.8 for which patient received anti-potassium coctail. Patient has history of ESRD on HD and Hypertension. Patient was last dialyzed on Sunday at [facility] dialysis under Dr. Ham. We are being consulted for management of this patient's ESRD. Past History Past Medical History: dialysis, hypertension, renal failure, other (as per HPI) Past Surgical History: Other (Access placement) Social history: no significant social history Family history: no significant family history Medications and Allergies Allergies Allergy/AdvReac Type Severity Reaction Status Date / Time acetaminophen [From Percocet] Allergy Itching Verified 12/07/19 20:32 hydrocodone bitartrate Allergy Itching Verified 03/22/19 15:37 [From Vicodin] morphine Allergy Itching Verified 12/07/19 20:32 oxycodone Allergy Itching Verified 03/23/19 00:35 tramadol Allergy Hives Verified 03/22/19 15:37 metoclopramide HCl AdvReac Unknown Verified 03/22/19 15:37 [From Reglan] Home Medications Medication Instructions Recorded Confirmed Last Taken Type sevelamer HCL [Renagel] 800 mg PO TIDWM #30 tablet 06/24/15 02/29/20 1 Day Ago Rx ~07/18/17 Aspirin 81 mg PO DAILY 12/08/19 02/29/20 Unknown History Coreg 25 mg PO BID 12/08/19 02/29/20 Unknown History Pepcid 20 mg PO DAILY 12/08/19 02/29/20 Unknown History Plaquenil 200 mg PO BID 12/08/19 02/29/20 Unknown History Plavix 75 mg PO DAILY 12/08/19 02/29/20 Unknown History Active Meds: Active Medications Aspirin (Halfprin Ec) 81 mg PO QDAY [facility] Atorvastatin Calcium (Lipitor) 40 mg PO QHS [facility] Carvedilol (Coreg) 25 mg PO Q12HR [facility] Clopidogrel Bisulfate (Plavix) 75 mg PO QDAY [facility] Dextrose (D50w (25gm) Syringe) 50 ml IV Q30MIN PRN; Protocol PRN Reason: Hypoglycemia Diphenhydramine HCl (Benadryl) 25 mg IV JOSEPH ONE Stop: 03/01/20 12:01 Last Admin: 03/01/20 12:10 Dose: 25 mg Documented by: Enoxaparin Sodium (Enoxaparin) 30 mg SUB-Q QDAY [facility] Last Admin: 03/01/20 09:43 Dose: 30 mg Documented by: Hydralazine HCl (Apresoline) 10 mg IV Q6H PRN PRN Reason: Hypertension Hydromorphone HCl (Dilaudid) 0.25 mg IV Q6HR PRN PRN Reason: Pain , Severe (7-10) Sodium Chloride (Nacl 0.9%) 100 mls @ 999 mls/hr IV JOSEPH PRN PRN Reason: Hypotension Insulin Human Lispro (Humalog) 0 unit SUB-Q ACHS [facility]; Protocol Last Admin: 03/01/20 12:40 Dose: Not Given Documented by: Ondansetron HCl (Zofran) 4 mg IV Q4H PRN PRN Reason: Nausea And Vomiting Last Admin: 03/01/20 04:46 Dose: 4 mg Documented by: Sodium Chloride (Sodium Chloride Flush Syringe 10 Ml) 10 ml IV BID [facility] Last Admin: 03/01/20 09:43 Dose: 10 ml Documented by: Sodium Chloride (Sodium Chloride Flush Syringe 10 Ml) 10 ml IV PRN PRN PRN Reason: LINE FLUSH Review of Systems Constitutional: fatigue, no weight loss, no weight gain, no fever, no chills Ears, nose, mouth and throat: no ear pain, no ear discharge, no tinnitis, no decreased hearing, no nose pain Breasts: deferred Cardiovascular: chest pain, no orthopnea, no palpitations, no rapid/irregular heart beat, no edema, no syncope, no lightheadedness, no shortness of breath Respiratory: no cough, no cough with sputum, no excessive sputum, no hemoptysis, no shortness of breath, no dyspnea on exertion Gastrointestinal: no abdominal pain, no nausea, no vomiting, no diarrhea, no constipation, no change in bowel habits Musculoskeletal: low back pain, no neck stiffness, no neck pain, no shooting arm pain, no arm numbness/tingling, no shooting leg pain, no leg numbness/tingling, no redness of joints Integumentary: no rash, no pruritis, no redness, no sores, no wounds, no jaundice Neurological: no head injury, no transient paralysis, no paralysis, no weakness, no parathesias, no numbness, no tingling, no seizures Psychiatric: no anxiety, no memory loss, no change in sleep habits, no sleep disturbances, no insomnia, no hypersomnia, no change in appetite Endocrine: no cold intolerance, no heat intolerance, no polyphagia, no excessive thirst, no polydipsia, no polyuria, no nocturia Hematologic/Lymphatic: no easy bruising, no easy bleeding, no lymphadenopathy Exam - Vital Signs Vital signs: Vital Signs Temp Pulse Resp BP Pulse Ox 98.2 F 91 H 18 153/49 98 02/29/20 15:47 02/29/20 15:47 02/29/20 15:47 02/29/20 15:47 02/29/20 15:47 - General Appearance General appearance: well-developed, appears stated age, fatigue EENT: ATNC, PERRL, hearing intact, vision intact Neck: Present: neck supple, trachea midline Respiratory: Decreased Breath Sounds Heart: regular, S1S2 Gastrointestinal: Present: normoactive bowel sounds Integumentary: warm and dry Neurologic: alert and oriented x3 Musculoskeletal: Present: other (Left AVG intact) Results - Lab Results 03/01/20 04:20 03/01/20 04:20 Most recent lab results Calcium 10.7 mg/dL (8.4-10.2) H 03/01/20 04:20 Assessment and Plan End Stage Renal Disease: Hyperkalemia: -Hemodialysis today for UF and clearance -Fluid restriction of 1 liter per day -Renally dose medications -Renal diet/Low K diet -Monitor I/O's -Assess dialysis needs daily, HD again tomorrow Hypertension: -Reconcile home BP meds -UF with HD Chest Pain: -Cardiology consulted
--- NOTE | 2020-03-01 16:29 | Progress Note ---
Assessment and Plan Assessment and plan: 34-year-old woman with a history of CAD, status post stent in September 2019, hypertension, CHF, hypertension, lupus, end-stage renal disease on dialysis, Sunday, and Sunday came to the emergency room with complaints of chest pain in the left chest area which she describes as a sharp pain, in termittent for less than 1 minute, intensity 5/10, radiating to left arm, she cannot identify exacerbating factor, relieving with pain medications. She admits to nausea, vomiting, denies shortness of breath, no diaphoresis or palpitation. Cocktail for hyperkalemia was given in the emergency, patient states she did not miss dialysis. Patient is admitted for chest pain, hyperkalemia --Atypical chest pain; Serial cardiac enzymes negative, cardiology evaluated the patient Advised to continue current management --History of coronary artery disease status post PCI September 2019 Continue current cardiac medications --Hyperkalemia; Hyperkalemia cocktail, closely monitor electrolytes --End-stage renal disease; on HD TTS HD per schedule, nephrology following Nephrology planning hemodialysis tomorrow --History of SLE; continue Plaquenil. Supportive care --Hypertension; moderate control Continue current antihypertensives, PRN medications --DVT prophylaxis; heparin renal dose Monitor closely and adjust management as needed History Interval history: Patient seen and examined at the bedside in her room Patient's chart and medications reviewed, Received hemodialysis today, complains of generalized body pains and left lower rib cage back pain Denies shortness of breath or cough Vital signs reviewed Hospitalist Physical - Constitutional Vitals: Temp Pulse Resp BP Pulse Ox 97 F L 90 16 98/56 99 03/01/20 14:39 03/01/20 14:39 03/01/20 14:39 03/01/20 14:39 03/01/20 08:40 General appearance: Present: mild distress, well-nourished, other (SLE chronic skin changes present) - EENT Eyes: Present: PERRL, EOM intact - Neck Neck: Present: supple, normal ROM - Respiratory Respiratory effort: normal Respiratory: bilateral: diminished, negative: rales, rhonchi, wheezing - Cardiovascular Rhythm: regular Heart Sounds: Present: S1 & S2 - Extremities Extremities: no ischemia, No edema - Abdominal General gastrointestinal: soft, non-tender, non-distended, normal bowel sounds - Integumentary Integumentary: Present: clear, warm, erythema (Chronic SLE skin changes) - Psychiatric Psychiatric: appropriate mood/affect, cooperative - Neurologic Neurologic: moves all extremities PRADEEP score - Pradeep Score Age > 65: (0) No Aspirin use within the Past 7 Days: (1) Yes 3 or more CAD Risk Factors: (1) Yes 2 or more Angina events in past 24 hrs: (0) No Known CAD with more than 50% Stenosis: (0) No Elevated Cardiac Markers: (0) No ST Deviation Greater than 0.5mm: (0) No PRADEEP Score: 2 Results - Labs CBC & Chem 7: 03/01/20 04:20 03/01/20 04:20 Labs: Laboratory Last Values WBC 8.2 K/mm3 (4.5-11.0) 03/01/20 04:20 RBC 4.32 M/mm3 (3.65-5.03) 03/01/20 04:20 Hgb 13.4 gm/dl (10.1-14.3) 03/01/20 04:20 Hct 41.8 % (30.3-42.9) 03/01/20 04:20 MCV 97 fl (79-97) 03/01/20 04:20 MCH 31 pg (28-32) 03/01/20 04:20 MCHC 32 % (30-34) 03/01/20 04:20 RDW 16.5 % (13.2-15.2) H 03/01/20 04:20 Plt Count 200 K/mm3 (140-440) 03/01/20 04:20 Lymph % (Auto) 22.5 % (13.4-35.0) 03/01/20 04:20 Grayson % (Auto) 11.6 % (0.0-7.3) H 03/01/20 04:20 Eos % (Auto) 1.0 % (0.0-4.3) 03/01/20 04:20 Baso % (Auto) 0.3 % (0.0-1.8) 03/01/20 04:20 Lymph # 1.8 K/mm3 (1.2-5.4) 03/01/20 04:20 Grayson # 0.9 K/mm3 (0.0-0.8) H 03/01/20 04:20 Eos # 0.1 K/mm3 (0.0-0.4) 03/01/20 04:20 Baso # 0.0 K/mm3 (0.0-0.1) 03/01/20 04:20 Seg Neutrophils % 64.6 % (40.0-70.0) 03/01/20 04:20 Seg Neutrophils # 5.3 K/mm3 (1.8-7.7) 03/01/20 04:20 Sodium 139 mmol/L (137-145) 03/01/20 04:20 Potassium 5.0 mmol/L (3.6-5.0) 03/01/20 04:20 Chloride 98.0 mmol/L (98-107) 03/01/20 04:20 Carbon Dioxide 23 mmol/L (22-30) 03/01/20 04:20 Anion Gap 23 mmol/L 03/01/20 04:20 BUN 35 mg/dL (7-17) H 03/01/20 04:20 Creatinine 9.5 mg/dL (0.7-1.2) H 03/01/20 04:20 Estimated GFR 6 ml/min 03/01/20 04:20 BUN/Creatinine Ratio 4 % 03/01/20 04:20 Glucose 85 mg/dL (65-100) 03/01/20 04:20 POC Glucose 88 (70-105) 03/01/20 07:55 Calcium 10.7 mg/dL (8.4-10.2) H 03/01/20 04:20 Troponin T < 0.010 ng/mL (0.00-0.029) 02/29/20 21:40 Hepatitis A IgM Ab Non-reactive (NonReactive) 03/01/20 11:15 Hep Bs Antigen Non-reactive (Negative) 03/01/20 11:15 Hep B Core IgM Ab Non-reactive (NonReactive) 03/01/20 11:15 Hepatitis C Antibody Non-reactive (NonReactive) 03/01/20 11:15 Hawkins/IV: Voiding Method Toilet IV Catheter Type [Right Wrist] Peripheral IV Active Medications - Current Medications Current Medications: Generic Name Dose Route Start Last Admin Trade Name Freq PRN Reason Stop Dose Admin Aspirin 81 mg 03/02/20 10:00 Halfprin Ec PO QDAY [facility] Atorvastatin Calcium 40 mg 03/01/20 22:00 Lipitor PO QHS [facility] Carvedilol 25 mg 03/01/20 22:00 Coreg PO Q12HR [facility] Clopidogrel Bisulfate 75 mg 03/02/20 10:00 Plavix PO QDAY [facility] Dextrose 50 ml 02/29/20 22:44 D50w (25gm) Syringe IV Q30MIN PRN Hypoglycemia Protocol Enoxaparin Sodium 30 mg 03/01/20 10:00 03/01/20 09:43 Enoxaparin SUB-Q 30 mg QDAY [facility] Administration Hydralazine HCl 10 mg 02/29/20 23:46 Apresoline IV Q6H PRN Hypertension Hydromorphone HCl 0.25 mg 03/01/20 12:22 03/01/20 15:53 Dilaudid IV 0.25 mg Q6HR PRN Administration Pain , Severe (7-10) Sodium Chloride 100 mls @ 999 mls/hr 03/01/20 12:00 Nacl 0.9% IV JOSEPH PRN Hypotension Insulin Human Lispro 0 unit 03/01/20 07:30 03/01/20 12:40 Humalog SUB-Q Not Given ACHS [facility] Protocol Ondansetron HCl 4 mg 02/29/20 22:44 03/01/20 04:46 Zofran IV 4 mg Q4H PRN Administration Nausea And Vomiting Sodium Chloride 10 ml 03/01/20 10:00 03/01/20 09:43 Sodium Chloride Flush Syringe 10 Ml IV 10 ml BID [facility] Administration Sodium Chloride 10 ml 02/29/20 22:44 Sodium Chloride Flush Syringe 10 Ml IV PRN PRN LINE FLUSH
[2020-03-01] MEDS: carvediloL 25 MG TAB PO SCH (21:45)
[2020-03-01] MEDS: HYDROXYCHLOROQUINE 200 MG TAB PO SCH (21:46)
[2020-03-01] MEDS ORDERED: PLAQUENIL 200 MG PO SCH (22:00)
[2020-03-02] MEDS: HYDROmorphone 1 MG/1 ML INJ IV PRN ×2 (06:39→12:55)
[2020-03-02] MEDS: ONDANSETRON 4 MG/2 ML INJ IV PRN (06:39)
[2020-03-02] MEDS: INSULIN LISPRO 100 UNIT/ML SUB-Q SCH ×3 (10:00→17:35)
[2020-03-02] MEDS ORDERED: ASPIRIN EC 81 MG TAB PO SCH (10:00)
[2020-03-02] MEDS ORDERED: CLOPIDOGREL 75 MG TAB PO SCH (10:00)
[2020-03-02] MEDS ORDERED: HYDROXYCHLOROQUINE 200 MG TAB PO SCH (10:00)
[2020-03-02] MEDS: HYDROXYCHLOROQUINE 200 MG TAB PO SCH (10:03)
[2020-03-02] MEDS: carvediloL 25 MG TAB PO SCH (10:05)
[2020-03-02] MEDS: ENOXAPARIN 30 MG/0.3 ML INJ SUB-Q SCH (10:05)
--- NOTE | 2020-03-02 10:13 | Progress Note ---
Assessment and Plan Atypical chest pain AMI ruled out. CXR with NAF. V/Q scan low prob for PE. Pain is located on left side of pt's ribcage by left breast. Pt reports h/o lipoma removal from this area. She is noted to have a small soft tissue mass in this area on examination. Consider further evaluation (? ultrasound) per primary team. D/w Dr. Phan. Lexiscan MPI stress test done 01/2018 was negative for ischemia. Echo done 03/2019 showed EF 55-60%, mild LVH, impaired relaxation, negative bubble study. No plans for additional cardiac w/u at this time. Hyperkalemia / ESRD on HD Serum K+ improved today. Nephrology following. CAD S/p PCI of mid LAD 06/2014; LHC 06/2015: patent LAD stent, otherwise normal coronaries Resume home ASA, statin, plavix, coreg. Lupus HTN Hyperlipidemia Currently stable cardiac status. Pt reports resolution of atypical chest pain. Nothing further to add from cardiac perspective at this time. Will sign off. Recommend pt follow up in our office with Dr. Barger within 2 weeks of discharge ([phone]). The patient has been seen in conjunction with Dr. Barger who agrees with the assessment and plan of care. Subjective Date of service: 03/02/20 Principal diagnosis: cp Interval history: pt resting in bed, feeling better today, no current complaints. in SR on tele. Objective Last Vital Signs Temp 98.3 F 03/02/20 03:41 Pulse 91 H 03/02/20 10:05 Resp 16 03/02/20 03:41 BP 98/51 03/02/20 10:05 Pulse Ox 97 03/02/20 08:05 - Physical Examination General: No Apparent Distress HEENT: Positive: PERRL, Normocephaly, Mucus Membranes Moist Neck: Positive: neck supple, trachea midline Cardiac: Positive: Reg Rate and Rhythm, S1/S2 Lungs: Positive: clear to auscultation Neuro: Positive: Grossly Intact Abdomen: Negative: Tender Skin: Negative: Rash Musculoskeletal: No Pain Extremities: Absent: edema - Imaging and Cardiology EKG: report reviewed, image reviewed Echo: report reviewed (03/2019 showed EF 55-60%, mild LVH, impaired relaxation, negative bubble study. ) Cardiac cath: report reviewed (In 06/2014, she underwent cardiac cath and PCI of 90% mid LAD lesion with a STEVEN at [facility]. Repeat cath in 06/2015 showed patent LAD stent and otherwise normal coronaries. ) - EKG Sinus rhythms and dysrhythmias: sinus rhythm
--- NOTE | 2020-03-02 12:26 | Progress Note ---
Assessment and Plan End Stage Renal Disease on HD Hyperkalemia: -S/p HD yesterday for UF and clearance, UF removed 2.2 liters -Will dialyze pt for shorter HD treatment today for gentle UF and clearance since she will get discharged today and regular outpatient HD schedule is [facility] TTS -Ok for pt to be discharged home today from nephrology standpoint after HD if remains medically stable -Fluid restriction of 1 liter per day -Renally dose medications -Renal diet/Low K diet -Monitor I/O's -Renal plan d/w Dr Ortiz Hypertension: -Monitor -UF with HD Chest Pain: -Cardiology evaluated pt, no additional cardiac work up, signed off Subjective Date of service: 03/02/20 Principal diagnosis: cp Interval history: Pt seen in bed, denies shortness of breath, c/o lower back pain, no acute distress. Pt states she's ready to go home Objective - Vital Signs Vital signs: Vital Signs - 12hr 03/02/20 03/02/20 03/02/20 03:41 04:00 05:00 Temperature 98.3 F Pulse Rate 98 H 102 H Respiratory 16 Rate Blood Pressure 100/63 O2 Sat by Pulse 99 Oximetry 03/02/20 03/02/20 08:05 10:05 Temperature Pulse Rate 91 H Respiratory Rate Blood Pressure 98/51 O2 Sat by Pulse 97 Oximetry - General Appearance General appearance: well-developed EENT: ATNC Neck: no JVD Respiratory: Present: Decreased Breath Sounds Cardiology: regular, S1S2, other (ACCESS: Right IJ Perm Catheter intact) Gastrointestinal: normoactive bowel sounds, no tenderness Integumentary: warm and dry Neurologic: alert and oriented x3 Musculoskeletal: other (no edema to BLE) Psychiatric: cooperative - Lab 03/01/20 04:20 03/01/20 04:20 Most recent lab results Calcium 10.7 mg/dL (8.4-10.2) H 03/01/20 04:20 Medications & Allergies - Medications Allergies/Adverse Reactions: Allergies acetaminophen [From Percocet] Allergy (Verified 12/07/19 20:32) Itching hydrocodone bitartrate [From Vicodin] Allergy (Verified 03/22/19 15:37) Itching morphine Allergy (Verified 12/07/19 20:32) Itching oxycodone Allergy (Verified 03/23/19 00:35) Itching tramadol Allergy (Verified 03/22/19 15:37) Hives metoclopramide HCl [From Reglan] Adverse Reaction (Verified 03/22/19 15:37) Unknown Home Medications: Home Medications Medication Instructions Recorded Confirmed Last Taken Type sevelamer HCL [Renagel] 800 mg PO TIDWM #30 tablet 06/24/15 02/29/20 1 Day Ago Rx ~07/18/17 Aspirin 81 mg PO DAILY 12/08/19 02/29/20 Unknown History Coreg 25 mg PO BID 12/08/19 02/29/20 Unknown History Pepcid 20 mg PO DAILY 12/08/19 02/29/20 Unknown History Plaquenil 200 mg PO BID 12/08/19 02/29/20 Unknown History Plavix 75 mg PO DAILY 12/08/19 02/29/20 Unknown History Active Medications: Generic Name Dose Route Start Last Admin Trade Name Freq PRN Reason Stop Dose Admin Aspirin 81 mg 03/02/20 10:00 03/02/20 10:02 Halfprin Ec PO 81 mg QDAY [facility] Administration Atorvastatin Calcium 40 mg 03/01/20 22:00 03/01/20 21:46 Lipitor PO 40 mg QHS [facility] Administration Carvedilol 25 mg 03/01/20 22:00 03/02/20 10:05 Coreg PO Not Given Q12HR [facility] Clopidogrel Bisulfate 75 mg 03/02/20 10:00 03/02/20 10:03 Plavix PO 75 mg QDAY [facility] Administration Dextrose 50 ml 02/29/20 22:44 D50w (25gm) Syringe IV Q30MIN PRN Hypoglycemia Protocol Enoxaparin Sodium 30 mg 03/01/20 10:00 03/02/20 10:05 Enoxaparin SUB-Q 30 mg QDAY [facility] Administration Hydralazine HCl 10 mg 02/29/20 23:46 Apresoline IV Q6H PRN Hypertension Hydromorphone HCl 0.25 mg 03/01/20 12:22 03/02/20 06:39 Dilaudid IV 0.25 mg Q6HR PRN Administration Pain , Severe (7-10) Hydroxychloroquine Sulfate 200 mg 03/03/20 10:00 Plaquenil PO QDAY [facility] Sodium Chloride 100 mls @ 999 mls/hr 03/01/20 12:00 Nacl 0.9% IV JOSEPH PRN Hypotension Insulin Human Lispro 0 unit 03/01/20 07:30 03/02/20 10:00 Humalog SUB-Q Not Given ACHS [facility] Protocol Ondansetron HCl 4 mg 02/29/20 22:44 03/02/20 06:39 Zofran IV 4 mg Q4H PRN Administration Nausea And Vomiting Sodium Chloride 10 ml 03/01/20 10:00 03/02/20 10:03 Sodium Chloride Flush Syringe 10 Ml IV 10 ml BID [facility] Administration Sodium Chloride 10 ml 02/29/20 22:44 Sodium Chloride Flush Syringe 10 Ml IV PRN PRN LINE FLUSH
[2020-03-02] MEDS ORDERED: SODIUM CHLORIDE 0.9% 100 ML IV PRN (13:56)
[2020-03-02] MEDS ORDERED: diphenhydrAMINE 50 MG/ML VIAL ONE (14:24)
[2020-03-02] MEDS ORDERED: diphenhydrAMINE 50 MG/ML VIAL IV PRN (14:25)
--- NOTE | 2020-03-02 15:48 | Discharge Summary ---
Providers - Providers Date of Admission: 03/02/20 07:43 Date of discharge: 03/02/20 Attending physician: JUANIS WRIGHT 02/29/20 22:28 Consult to Physician [CONS] Stat Comment: Dr. Ahn spoke with Dr. Pinto @ [id number] Consulting Provider: MARII PINTO Physician Instructions: Reason For Exam: hyperkalemia 02/29/20 22:44 Consult to Physician [CONS] Routine Comment: Consulting Provider: MARIO FENG Physician Instructions: Reason For Exam: cp Primary care physician: [facility] Hospitalization Condition: Stable Disposition: DC-01 TO HOME OR SELFCARE Time spent for discharge: 32 min Core Measure Documentation - Palliative Care Palliative Care/ Comfort Measures: Not Applicable - Core Measures Any of the following diagnoses?: none Exam - Constitutional Vitals: Temp Pulse Resp BP Pulse Ox 98.3 F 84 18 127/78 100 03/02/20 03:41 03/02/20 12:41 03/02/20 12:41 03/02/20 12:41 03/02/20 12:41 General appearance: Present: no acute distress, well-nourished - EENT Eyes: Present: PERRL, EOM intact - Neck Neck: Present: supple, normal ROM - Respiratory Respiratory effort: normal Respiratory: bilateral: diminished, negative: rales, rhonchi, wheezing - Cardiovascular Rhythm: regular Heart Sounds: Present: S1 & S2 - Extremities Extremities: no ischemia, No edema Peripheral Pulses: within normal limits - Abdominal General gastrointestinal: Present: soft, non-tender, non-distended, normal bowel sounds - Integumentary Integumentary: Present: clear, warm, erythema (Chronic skin changes of SLE) - Musculoskeletal Musculoskeletal: generalized weakness - Psychiatric Psychiatric: appropriate mood/affect, cooperative - Neurologic Neurologic: moves all extremities Plan Activity: advance as tolerated Diet: renal Additional Instructions: Follow renal, hemodialysis per schedule. Strongly advised to comply with medications and diet, follow-up visits. If you have worsening symptoms contact MD or go to emergency room Follow up with: PRIMARY MD AMBER [Primary Care Provider] - 3-5 Days ROME JOINER MD [Staff Physician] - 7 Days Prescriptions: Hydroxychloroquine [Plaquenil] 200 mg PO QDAY #30 tablet
[2020-03-02 18:02] VITALS: BP 135/82
[2020-03-03] MEDS ORDERED: HYDROXYCHLOROQUINE 200 MG TAB PO SCH (10:00)
== END 2020-03-02 17:25 | disposition home or self-care (01) | DRG 291 ==
LOC: ED 15:44 → 4A 22:44 → OBSVTOIN 03-02 07:43
PROVIDERS: ADMIT Internal Medicine; ATTEND Internal Medicine
PROC: 5A1D70Z Performance of Urinary Filtration, Intermittent, Less than 6 Hours Per Day (ICD-10-PCS; principal; 2020-03-01)
PROC: 5A1D70Z Performance of Urinary Filtration, Intermittent, Less than 6 Hours Per Day (ICD-10-PCS; 2020-03-02)
DX: I13.2 Hypertensive heart and chronic kidney disease with heart failure and with stage 5 chronic kidney disease, or end stage renal disease (principal); N18.6 End stage renal disease; E87.5 Hyperkalemia; R07.89 Other chest pain; I25.10 Atherosclerotic heart disease of native coronary artery without angina pectoris; E78.5 Hyperlipidemia, unspecified; I50.9 Heart failure, unspecified; I16.0 Hypertensive urgency; M19.90 Unspecified osteoarthritis, unspecified site; M32.9 Systemic lupus erythematosus, unspecified; Z99.2 Dependence on renal dialysis; I25.2 Old myocardial infarction; Z95.5 Presence of coronary angioplasty implant and graft; Z88.5 Allergy status to narcotic agent; Z79.82 Long term (current) use of aspirin; Z79.899 Other long term (current) drug therapy; Z90.49 Acquired absence of other specified parts of digestive tract; Z82.49 Family history of ischemic heart disease and other diseases of the circulatory system; Z83.3 Family history of diabetes mellitus
CPT/HCPCS: 36415; 71045; 78580; 80048; 80074; 82962; 84132; 84484; 85025; 93005; 94640; G0378; A9270-GY; A9540; J0610; J1170; J1200; J1650; J1815; J2405

== ENCOUNTER 2020-05-03 02:42 | Emergency (ER) | payer MEDICAID ==
[2020-05-03 02:50] VITALS: BP 189/115
[2020-05-03] MEDS ORDERED: ASPIRIN 325 MG TAB PO ONE (02:50)
[2020-05-03 03:26] LABS: Basophils % (Auto) 0.7 % (0.0-1.8); Eosinophils % (Auto) 0.4 % (0.0-4.3); Hematocrit 33.8 % (30.3-42.9); Hemoglobin 10.9 gm/dl (10.1-14.3); Lymphocytes # (Auto) 1.3 K/mm3 (1.2-5.4); Lymphocytes % (Auto) 19.7 % (13.4-35.0); Mean Corpuscular HGB Conc 32 % (30-34); Mean Corpuscular Volume 96 fl (79-97); Monocytes # (Auto) 0.4 K/mm3 (0.0-0.8); Platelet Count 262 K/mm3 (140-440); Red Blood Count 3.52 M/mm3 (3.65-5.03)
[2020-05-03] MEDS ORDERED: SUCRALFATE 1 GM/10 ML ORAL LIQD PO ONE (03:46)
[2020-05-03] MEDS ORDERED: NITROGLYCERIN 0.4 MG TAB SUBL SL PRN (03:46)
[2020-05-03] MEDS ORDERED: FAMOTIDINE 20 MG TAB PO ONE (03:46)
--- NOTE | 2020-05-03 03:47 | Emergency Department Report ---
ED General Adult HPI - General Chief complaint: Chest Pain Stated complaint: CHEST PAIN, VOMITING PUI?: No Time Seen by Provider: 05/03/20 03:36 Source: patient, RN notes reviewed, old records reviewed Mode of arrival: Ambulatory Limitations: No Limitations - History of Present Illness Initial comments: During the entire history and physical examination, I am configuration engineer and escorted by nurse Valerie Amador The patient is a 35-year-old female. I have evaluated her in the past. Her past medical history includes heart disease, stents 2019, hypertension, CHF, lupus, end-stage renal disease on hemodialysis, Sunday, , Sunday. She states her last dialysis session was this past Sunday. It is currently Sunday. The patient has been seen at this hospital multiple times recently for chest pain. She was seen by cardiology earlier on this year, who as per their evaluation "atypical chest pain, noncardiac, no plans for additional cardiac work-up at this time. Patient persistently has pain located on the left side of her rib cage by her left breast. Patient in addition reportedly has a history of lipoma removal from this area. She is noted to have a soft tissue mass on a prior evaluation. She endorses compliance with her medications. She presents to the ER today with a recurrent complaint of left-sided chest wall pain. It started a few hours ago. She indicates it does not radiate anywhere. Makes no complaint of headache, neck pain, abdominal pain. No new or different shortness of breath. Denies DVT and pulmonary embolism risk factors. I evaluated this patient earlier on this month for similar symptoms. Please see my note from April 24, 2020 -: Gradual, hour(s) Location: chest Radiation: non-radiation Quality: other Consistency: other Improves with: other Worsens with: other Associated Symptoms: other - Related Data Home Medications Medication Instructions Recorded Confirmed Last Taken Aspirin 81 mg PO DAILY 12/08/19 02/29/20 Unknown Coreg 25 mg PO BID 12/08/19 02/29/20 Unknown Pepcid 20 mg PO DAILY 12/08/19 02/29/20 Unknown Plavix 75 mg PO DAILY 12/08/19 02/29/20 Unknown Previous Rx's Medication Instructions Recorded Last Taken Type sevelamer HCL [Renagel] 800 mg PO TIDWM #30 tablet 06/24/15 1 Day Ago Rx ~07/18/17 Hydroxychloroquine [Plaquenil] 200 mg PO QDAY #30 tablet 03/02/20 Unknown Rx Sodium Polystyrene Sulfonate 60 gm PO NOW #240 ml 05/03/20 Unknown Rx Allergies Allergy/AdvReac Type Severity Reaction Status Date / Time acetaminophen [From Percocet] Allergy Itching Verified 04/06/20 17:52 hydrocodone bitartrate Allergy Itching Verified 04/06/20 17:52 [From Vicodin] morphine Allergy Itching Verified 04/06/20 17:52 oxycodone Allergy Itching Verified 04/06/20 17:52 tramadol Allergy Hives Verified 04/06/20 17:52 metoclopramide HCl AdvReac Unknown Verified 04/06/20 17:52 [From Reglan] ED Review of Systems ROS: Stated complaint: CHEST PAIN, VOMITING Other details as noted in HPI Constitutional: denies: fever Cardiovascular: chest pain Gastrointestinal: denies: abdominal pain Musculoskeletal: myalgia ED Past Medical Hx - Past Medical History Previous Medical History?: Yes Hx Hypertension: (EF NORMAL) Hx Heart Attack/AMI: Yes (2 stents on Plavix&ASA) Hx Congestive Heart Failure: Yes Hx Diabetes: No Hx Liver Disease: No Hx Renal Disease: Yes (hemodialysis ) Hx Sickle Cell Disease: ( ) Hx Arthritis: Yes Hx Seizures: No Hx Asthma: No Hx COPD: No Hx HIV: No Additional medical history: Lupus, 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 - Surgical History Past Surgical History?: Yes Hx Coronary Stent: Yes (2011 x1, 2018 x1) Hx Cholecystectomy: Yes Additional Surgical History: bilat total hips, right av fistula, , Dialysis chest access, permcath - Social History Smoking Status: Never Smoker Substance Use Type: None - Medications Home Medications: Home Medications Medication Instructions Recorded Confirmed Last Taken Type sevelamer HCL [Renagel] 800 mg PO TIDWM #30 tablet 06/24/15 02/29/20 1 Day Ago Rx ~07/18/17 Aspirin 81 mg PO DAILY 12/08/19 02/29/20 Unknown History Coreg 25 mg PO BID 12/08/19 02/29/20 Unknown History Pepcid 20 mg PO DAILY 12/08/19 02/29/20 Unknown History Plavix 75 mg PO DAILY 12/08/19 02/29/20 Unknown History Hydroxychloroquine [Plaquenil] 200 mg PO QDAY #30 tablet 03/02/20 Unknown Rx Sodium Polystyrene Sulfonate 60 gm PO NOW #240 ml 05/03/20 Unknown Rx ED Physical Exam - General Limitations: No Limitations, Other (Chaperoned by nurse Jonh Amador) General appearance: alert, in no apparent distress - Head Head exam: Present: atraumatic, normocephalic - Eye Eye exam: Present: normal appearance, EOMI. Absent: nystagmus - ENT ENT exam: Present: normal exam, normal orophraynx, mucous membranes moist, normal external ear exam - Neck Neck exam: Present: normal inspection, full ROM. Absent: tenderness, meningismus - Respiratory Respiratory exam: Present: normal lung sounds bilaterally, chest wall tend erness, other (There is a left-sided Vas-Cath dialysis access catheter noted, without redness, pus or streaking). Absent: respiratory distress, wheezes, rales, rhonchi, stridor - Cardiovascular Cardiovascular Exam: Present: regular rate, normal rhythm, normal heart sounds. Absent: tachycardia, irregular rhythm, systolic murmur, diastolic murmur, rubs, gallop - GI/Abdominal GI/Abdominal exam: Present: soft, normal bowel sounds. Absent: distended, tenderness, guarding, rebound, rigid, pulsatile mass - Extremities Exam Extremities exam: Present: normal inspection, full ROM, other (2+ pulses noted in the bilateral upper and lower extremities. There is no palpable cord. neg ative Homans sign. Muscular compartments are soft. The pelvis is stable.). Absent: calf tenderness - Back Exam Back exam: Present: normal inspection, full ROM. Absent: tenderness, CVA tenderness (R), CVA tenderness (L), paraspinal tenderness, vertebral tenderness - Neurological Exam Neurological exam: Present: alert, oriented X3, normal gait, other (No facial droop. Tongue midline. Extraocular movements intact bilaterally. Facial sensation intact to light touch in V1, V2, V3 distribution bilaterally. 5 and a 5 strength in 4 extremities. Sensation intact to light touch in 4 extremities.). Absent: motor sensory deficit - Psychiatric Psychiatric exam: Present: normal affect, normal mood - Skin Skin exam: Present: warm, dry, intact, normal color. Absent: rash ED Course Vital Signs 05/03/20 02:50 Temperature 98.5 F Pulse Rate 81 Respiratory 16 Rate Blood Pressure 189/115 [Right] O2 Sat by Pulse 99 Oximetry ED Medical Decision Making - Lab Data Result diagrams: 05/03/20 02:57 05/03/20 02:57 Vital Signs 05/03/20 02:50 Temperature 98.5 F Pulse Rate 81 Respiratory 16 Rate Blood Pressure 189/115 [Right] O2 Sat by Pulse 99 Oximetry Lab Results 05/03/20 05/03/20 Range/Units 02:57 02:57 WBC 6.8 (4.5-11.0) K/mm3 RBC 3.52 L (3.65-5.03) M/mm3 Hgb 10.9 (10.1-14.3) gm/dl Hct 33.8 (30.3-42.9) % MCV 96 (79-97) fl MCH 31 (28-32) pg MCHC 32 (30-34) % RDW 17.0 H (13.2-15.2) % Plt Count 262 (140-440) K/mm3 Lymph % (Auto) 19.7 (13.4-35.0) % [place] % (Auto) 6.0 (0.0-7.3) % Eos % (Auto) 0.4 (0.0-4.3) % Baso % (Auto) 0.7 (0.0-1.8) % Lymph # 1.3 (1.2-5.4) K/mm3 [place] # 0.4 (0.0-0.8) K/mm3 Eos # 0.0 (0.0-0.4) K/mm3 Baso # 0.0 (0.0-0.1) K/mm3 Seg Neutrophils % 73.2 H (40.0-70.0) % Seg Neutrophils # 5.0 (1.8-7.7) K/mm3 Sodium 139 (137-145) mmol/L Potassium 7.0 H* (3.6-5.0) mmol/L Chloride 99 (98-107) mmol/L Carbon Dioxide 24 (22-30) mmol/L Anion Gap 23 mmol/L BUN 55 H (7-17) mg/dL Creatinine 11.8 H (0.7-1.2) mg/dL Estimated GFR 4 ml/min BUN/Creatinine Ratio 5 % Glucose 111 H (65-100) mg/dL Calcium 9.4 (8.4-10.2) mg/dL Troponin T 0.016 (0.00-0.029) ng/mL - EKG Data -: EKG Interpreted by Me EKG shows normal: sinus rhythm Rate: normal - EKG Data When compared to previous EKG there are: no significant change 05/03/20 04:13 Patient's EKG today is unchanged from prior EKG. Sinus rhythm, 74 bpm, left axis deviation, low voltage V2, abnormal EKG, not a STEMI, unchanged from prior EKG from 04/06/2012 - Medical Decision Making Parental diagnosis, including but not limited to: Coronary artery disease, costochondritis, GERD, gastritis, chronic pain, narcotic seeking behavior End-stage renal disease, electrolyte derangement, Assessment and plan: 35-year-old female with recurrent complaint of left-sided chest wall discomfort, who is afebrile with reassuring vital signs with the exception of chronic hypertension, and multiple medication allergies. We have recommended basic laboratory studies, including serum chemistry, and troponin. Patient is found to have negative troponin, however is found to be markedly hyperkalemic. I counseled the patient that we would be very happy to treat her with nonnarcotic nonsedating [id number] pain medicine, to the best of our ability, but I also counseled the patient that at this point time, I would not consider narcotic therapy appropriate, especially given her morphine allergy. Patient was found to have a potassium of 7. I have strongly recommended admission to the medical service for urgent hemodialysis. The patient is refusing. Counseled patient about the risks of leaving, including , disability, paralysis, loss of quality of life. Patient is alert and oriented, clinically sober, free from distracting injury, and exhibits decision-making capacity. This conversation is witnessed by nurse Valerie Amador The patient left AMA before receiving her paperwork. The patient was counseled that she may return to the emergency room right away if and when she changes her mind Critical care attestation.: If time is entered above; I have spent that time in minutes in the direct care of this critically ill patient, excluding procedure time. ED Disposition Clinical Impression: ESRD (end stage renal disease) on dialysis, Chest pain, Hyperkalemia Disposition: LEFT AGAINST MED ADVICE Is pt being admited?: No Does the pt Need Aspirin: No Condition: Stable Additional Instructions: As we discussed, you have left the hospital/emergency room AGAINST MEDICAL ADVICE. By leaving, you risked , disability, paralysis, permanent loss of quality of life. The ER is open 24 hours a day, 7 days a week. It never closes. Please return to the emergency room right away if and when you change your mind. If you decide not to return to the emergency room, please follow-up with the listed physician referrals as soon as possible. Referrals: YSABEL OWUSU MD [Staff Physician] - SAI DAPHNE SUN MD [Staff Physician] - SAI Forms: AMA Form
[2020-05-03 04:06] LABS: Calcium 9.4 mg/dL (8.4-10.2)
[2020-05-03] MEDS ORDERED: SODIUM POLYSTYRENE 15 GM/60 ML ORAL LIQD PO ONE (04:10)
[2020-05-03] MEDS ORDERED: carvediloL 25 MG TAB PO ONE (05:00)
== END 2020-05-03 04:14 | disposition left against medical advice (07) ==
LOC: ED 02:42
DX: R07.89 Other chest pain (principal); E87.5 Hyperkalemia; I13.2 Hypertensive heart and chronic kidney disease with heart failure and with stage 5 chronic kidney disease, or end stage renal disease; N18.6 End stage renal disease; I50.9 Heart failure, unspecified; M19.91 Primary osteoarthritis, unspecified site; I25.2 Old myocardial infarction; Z99.2 Dependence on renal dialysis; Z90.49 Acquired absence of other specified parts of digestive tract; Z98.890 Other specified postprocedural states; Z79.899 Other long term (current) drug therapy; Z88.8 Allergy status to other drugs, medicaments and biological substances
CPT/HCPCS: 36415; 80048; 84484; 84703; 85025; 93005

== ENCOUNTER 2020-09-01 17:20 | Emergency (ER) | payer MEDICAID ==
[2020-09-01 17:41] VITALS: BP 166/108
[2020-09-01] MEDS ORDERED: ASPIRIN 325 MG TAB PO ONE (17:42)
[2020-09-01 18:16] LABS: Basophils % (Auto) 0.5 % (0.0-1.8); Eosinophils # (Auto) 0.1 K/mm3 (0.0-0.4); Eosinophils % (Auto) 1.5 % (0.0-4.3); Hematocrit 39.1 % (30.3-42.9); Hemoglobin 12.6 gm/dl (10.1-14.3); Lymphocytes # (Auto) 2.1 K/mm3 (1.2-5.4); Lymphocytes % (Auto) 25.8 % (13.4-35.0); Mean Corpuscular HGB Conc 32 % (30-34); Mean Corpuscular Volume 96 fl (79-97); Monocytes # (Auto) 0.8 K/mm3 (0.0-0.8); Monocytes % (Auto) 9.8 % (0.0-7.3); Platelet Count 220 K/mm3 (140-440); Red Blood Count 4.08 M/mm3 (3.65-5.03); Red Cell Distribution Width 16.9 % (13.2-15.2)
--- NOTE | 2020-09-01 18:23 | XRay Report ---
CHEST PA AND LATERAL VIEWS INDICATION: Chest Pain. COMPARISON: 02/29/2020 FINDINGS: Support devices: Unchanged. Stable. Heart: Within normal limits. Lungs/Pleura: Given the elevation of the left hemidiaphragm. Left basilar opacity is likely atelectat ic in etiology. The right lung is clear. No significant effusion, no pneumothorax. IMPRESSION: 1. Left basilar airspace disease is likely atelectatic in etiology given the associated volume loss/e levation of the left hemidiaphragm. Signer Name: Luis Garcia MD Signed: 09/01/2020 6:18 PM Workstation Name: [id number]
[2020-09-01 18:24] LABS: INR 1.14 (0.87-1.13)
[2020-09-01 18:25] LABS: Partial Thromboplastin Time 34.3 Sec. (24.2-36.6)
[2020-09-01 18:36] LABS: Calcium 9.4 mg/dL (8.4-10.2)
== END 2020-09-01 19:32 | disposition left against medical advice (07) ==
LOC: ED 17:20
DX: R07.89 Other chest pain (principal); M79.602 Pain in left arm; Z53.21 Procedure and treatment not carried out due to patient leaving prior to being seen by health care provider
CPT/HCPCS: 36415; 71046; 80048; 84484; 85025; 85610; 85730; 93005

== ENCOUNTER 2021-01-26 18:19 | Inpatient (IN) | payer MEDICAID ==
[2021-01-26] MEDS ORDERED: ASPIRIN 325 MG TAB PO ONE (18:53)
--- NOTE | 2021-01-26 18:58 | Event Note ---
ED Screening Note Date of service: 01/26/21 Time: 18:57 ED Screening Note: Pt refusing to answer questions This initial assessment/diagnostic orders/clinical plan/treatment(s) is/are subject to change based on patients health status, clinical progression and re- assessment by fellow clinical providers in the ED. Further treatment and workup at subsequent clinical providers discretion. Patient/guardian urged not to elope from the ED as their condition may be serious if not clinically assessed and managed. Initial orders include: labs ekg chest xr
[2021-01-26 19:58] LABS: INR 1.02 (0.87-1.13); Partial Thromboplastin Time 29.9 Sec. (24.2-36.6)
[2021-01-26 20:01] LABS: Basophils % (Auto) 0.4 % (0.0-1.8); Eosinophils # (Auto) 0.1 K/mm3 (0.0-0.4); Eosinophils % (Auto) 0.8 % (0.0-4.3); Hemoglobin 11.4 gm/dl (10.1-14.3); Lymphocytes % (Auto) 22.1 % (13.4-35.0); Mean Corpuscular HGB Conc 33 % (30-34); Mean Corpuscular Volume 99 fl (79-97); Monocytes # (Auto) 0.8 K/mm3 (0.0-0.8); Monocytes % (Auto) 9.1 % (0.0-7.3); Platelet Count 243 K/mm3 (140-440); Red Blood Count 3.53 M/mm3 (3.65-5.03); Red Cell Distribution Width 17.3 % (13.2-15.2)
[2021-01-26 20:12] LABS: BUN/Creatinine Ratio TNR; Blood Urea Nitrogen TNR mg/dL (7-17); Calcium TNR mg/dL (8.4-10.2)
[2021-01-26 20:13] LABS: Alanine Aminotransferase TNR units/L (7-56); Albumin TNR g/dL (3.9-5)
--- NOTE | 2021-01-26 20:35 | XRay Report ---
CHEST PA AND LATERAL VIEWS INDICATION: Chest pain.. COMPARISON: 09/01/2020 FINDINGS: Support devices: None. Heart: Within normal limits. Lungs/Pleura: No acute pulmonary or pleural findings. There is persistent mild elevation of the left hemidiaphragm. IMPRESSION: 1. No acute findings. Signer Name: Luis Garcia MD Signed: 01/26/2021 8:30 PM Workstation Name: [id number]
[2021-01-26 20:38] LABS: Albumin 4.2 g/dL (3.9-5); Calcium 8.4 mg/dL (8.4-10.2)
--- NOTE | 2021-01-26 20:48 | Emergency Department Report ---
ED Chest Pain HPI - General Chief Complaint: Chest Pain Stated Complaint: CHEST PAIN/VOMITING PUI?: No Time Seen by Provider: 01/26/21 20:30 Source: patient Mode of arrival: Ambulatory Limitations: No Limitations - History of Present Illness Initial Comments: Patient is a 35-year-old female that presents emergency room with complaints of chest pain. Patient states also having nausea and vomiting. Patient states she is having mild shortness of breath. Patient denies diaphoresis. Patient states that her chest pain is rating to her left upper extremity. Patient states the chest pain is a 10 out of 10. Patient dates the chest pain is better with rest and worse with exertion. Patient states that her shortness of breath is better with rest and worse with exertion. Patient denies blood in her vomitus. Patient that she is on dialysis and takes dialysis Sunday, Sunday. Patient states she has not missed dialysis. Patient states that her symptoms started last night. Patient dates her symptoms are worsening. Patient denies recent travel. Patient denies recent international travel. Patient denies exposure to the novel coronavirus. Patient denies sick contacts. Patient denies fever and chills. Patient denies cough. Patient denies diarrhea. Patient denies coming in contact with anybody with symptoms of the novel coronavirus. MD Complaint: chest pain -: Sudden, days(s) Onset: during rest Pain Location: left chest Pain Radiation: LUE Severity: severe Severity scale (0 -10): 10 Quality: sharp Consistency: constant Improves With: rest Worsens With: exertion re: nausea, vomting, dyspnea. denies: diaphoresis, sense of impending doom Other Symptoms: denies: cough, fever, syncope, rash, acid taste in mouth, leg swelling, palpitations, burping Treatments Prior to Arrival: none Aspirin use within the Past 7 Days: (1) Yes - Related Data On Oral Contraceptives: No Home Medications Medication Instructions Recorded Confirmed Last Taken Aspirin 81 mg PO DAILY 12/08/19 02/29/20 Unknown Coreg 25 mg PO BID 12/08/19 02/29/20 Unknown Pepcid 20 mg PO DAILY 12/08/19 02/29/20 Unknown Plavix 75 mg PO DAILY 12/08/19 02/29/20 Unknown Previous Rx's Medication Instructions Recorded Last Taken Type sevelamer HCL [Renagel] 800 mg PO TIDWM #30 tablet 06/24/15 1 Day Ago Rx ~07/18/17 Hydroxychloroquine [Plaquenil] 200 mg PO QDAY #30 tablet 03/02/20 Unknown Rx Sodium Polystyrene Sulfonate 60 gm PO NOW #240 ml 05/03/20 Unknown Rx Allergies Allergy/AdvReac Type Severity Reaction Status Date / Time acetaminophen [From Percocet] Allergy Itching Verified 01/26/21 18:45 hydrocodone bitartrate Allergy Itching Verified 01/26/21 18:45 [From Vicodin] morphine Allergy Itching Verified 01/26/21 18:45 oxycodone Allergy Itching Verified 01/26/21 18:45 tramadol Allergy Hives Verified 01/26/21 18:45 metoclopramide HCl AdvReac Unknown Verified 01/26/21 18:45 [From Reglan] Heart Score - HEART Score History: Moderately suspicious EKG: Non-specific Age: < 45 Risk factors: > 3 risk factors or hx of atherosclerotic disease Troponin: < normal limit HEART Score: 4 ED Review of Systems ROS: Stated complaint: CHEST PAIN/VOMITING Other details as noted in HPI Constitutional: denies: chills, fever Eyes: denies: eye pain, eye discharge, vision change ENT: denies: ear pain, throat pain Respiratory: see HPI, shortness of breath. denies: cough, wheezing Cardiovascular: as per HPI, chest pain. denies: palpitations Endocrine: no symptoms reported Gastrointestinal: as per HPI, nausea, vomiting. denies: abdominal pain, diarrhea Genitourinary: denies: urgency, dysuria, discharge Musculoskeletal: denies: back pain, joint swelling, arthralgia Skin: denies: rash, lesions Neurological: denies: headache, weakness, paresthesias Psychiatric: denies: anxiety, depression Hematological/Lymphatic: denies: easy bleeding, easy bruising ED Past Medical Hx - Past Medical History Previous Medical History?: Yes Hx Hypertension: (EF NORMAL) Hx Heart Attack/AMI: Yes (2 stents on Plavix&ASA) Hx Congestive Heart Failure: Yes Hx Diabetes: No Hx Liver Disease: No Hx Renal Disease: Yes (hemodialysis -) Hx Sickle Cell Disease: ( ) Hx Arthritis: Yes Hx Seizures: No Hx Asthma: No Hx COPD: No Hx HIV: No Additional medical history: Lupus, 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 - Surgical History Past Surgical History?: Yes Hx Coronary Stent: Yes (2011 x1, 2018 x1) Hx Open Heart Surgery: Yes Hx Cholecystectomy: Yes Additional Surgical History: bilat total hips, right av fistula, , Dialysis chest access, permcath - Family History Family history: no significant - Social History Smoking Status: Former Smoker Substance Use Type: None - Medications Home Medications: Home Medications Medication Instructions Recorded Confirmed Last Taken Type sevelamer HCL [Renagel] 800 mg PO TIDWM #30 tablet 06/24/15 02/29/20 1 Day Ago Rx ~07/18/17 Aspirin 81 mg PO DAILY 12/08/19 02/29/20 Unknown History Coreg 25 mg PO BID 12/08/19 02/29/20 Unknown History Pepcid 20 mg PO DAILY 12/08/19 02/29/20 Unknown History Plavix 75 mg PO DAILY 12/08/19 02/29/20 Unknown History Hydroxychloroquine [Plaquenil] 200 mg PO QDAY #30 tablet 03/02/20 Unknown Rx Sodium Polystyrene Sulfonate 60 gm PO NOW #240 ml 05/03/20 Unknown Rx ED Physical Exam - General Limitations: No Limitations General appearance: alert, in no apparent distress - Head Head exam: Present: atraumatic, normocephalic - Eye Eye exam: Present: normal appearance - ENT ENT exam: Present: mucous membranes moist - Neck Neck exam: Present: normal inspection - Respiratory Respiratory exam: Present: normal lung sounds bilaterally. Absent: respiratory distress, wheezes, rales, chest wall tenderness - Cardiovascular Cardiovascular Exam: Present: regular rate, normal rhythm. Absent: systolic murmur, diastolic murmur, rubs, gallop - GI/Abdominal GI/Abdominal exam: Present: soft, normal bowel sounds - Extremities Exam Extremities exam: Present: normal inspection - Back Exam Back exam: Present: normal inspection - Neurological Exam Neurological exam: Present: alert, oriented X3 - Psychiatric Psychiatric exam: Present: normal affect, normal mood - Skin Skin exam: Present: warm, dry, intact, normal color. Absent: rash ED Course Vital Signs 01/26/21 01/26/21 01/26/21 18:53 19:30 19:38 Temperature 97.6 F Pulse Rate 100 H 82 Respiratory 18 22 16 Rate Blood Pressure 160/102 Blood Pressure 161/107 [Right] O2 Sat by Pulse 100 99 Oximetry 01/26/21 01/26/21 01/26/21 20:00 20:30 21:00 Temperature Pulse Rate 76 76 79 Respiratory 26 H 16 14 Rate Blood Pressure 153/96 160/102 147/93 Blood Pressure [Right] O2 Sat by Pulse 99 99 99 Oximetry 01/26/21 01/26/21 01/26/21 21:30 22:00 22:30 Temperature Pulse Rate 72 75 71 Respiratory 22 22 17 Rate Blood Pressure 147/93 147/93 147/93 Blood Pressure [Right] O2 Sat by Pulse 98 100 99 Oximetry 01/26/21 01/26/21 01/27/21 23:00 23:30 00:00 Temperature Pulse Rate 71 81 74 Respiratory 14 17 17 Rate Blood Pressure 164/106 137/98 151/99 Blood Pressure [Right] O2 Sat by Pulse 99 98 99 Oximetry - Reevaluation(s) Reevaluation #1: I discussed all results with patient. I discussed plan of care with patient. Patient agrees with plan of care and admission. Patient to be admitted to the hospitalist service. 01/26/21 21:01 - Consultations Consultation #1: I discussed case with nephrology. Nephrology to order emergent dialysis. 01/26/21 21:00 Consultation #2: Hospitalist consulted for admission. Hospitalist to admit patient. 01/26/21 21:00 PRADEEP score - Pradeep Score Age > 65: (0) No Aspirin use within the Past 7 Days: (1) Yes 3 or more CAD Risk Factors: (1) Yes 2 or more Angina events in past 24 hrs: (0) No Known CAD with more than 50% Stenosis: (0) No Elevated Cardiac Markers: (0) No ST Deviation Greater than 0.5mm: (0) No PRADEEP Score: 2 ED Medical Decision Making - Lab Data Result diagrams: 01/27/21 00:00 01/27/21 00:00 - EKG Data -: EKG Interpreted by Me EKG shows normal: sinus rhythm, axis, intervals, QRS complexes, ST-T waves Rate: normal - EKG Data Interpretation: LVH, other (Peaked T waves) - Radiology Data Radiology results: report reviewed, image reviewed interpreted by me: Chest x-ray: No pneumonia, no pneumothorax, no foreign body, no osseous findings, no acute findings - Medical Decision Making Patient is a 35-year-old female that presents emergency room with complaints of chest pain, shortness of breath, nausea, vomiting. Patient is a dialysis patient states that she is compliant with her dialysis. Patient had labs done which were essentially unremarkable except for hyperkalemia and elevated BNP. Patient's chest x-ray was negative for acute findings. Patient EKG was negative for ST T-segment changes but shows peak T waves. I personally reviewed the EKG and the chest x-ray. After labs resulted, the I discussed the case with nephrology and nephrology ordered emergent dialysis. Patient given medical management of the hyperkalemia with Kayexalate, calcium chloride, insulin, D50. Calcium given first. Patient admitted to the hospital service for further evaluation treatment. Critical care time documented due to the multiple reassessments, prolonged time at the bedside, interpretation of diagnostics and labs and discussion with consultants.. - Differential Diagnosis Chest pain, shortness of breath, electrolyte imbalance, ACS, Critical Care Time: Yes Critical care time in (mins) excluding proc time.: 40 Critical care attestation.: If time is entered above; I have spent that time in minutes in the direct care of this critically ill patient, excluding procedure time. Critical Care Time: 40 minutes ED Disposition Clinical Impression: ESRD (end stage renal disease) on dialysis, Hyperkalemia, Shortness of breath, ESRD needing dialysis Chest pain Qualifiers: Chest pain type: unspecified Qualified Code(s): R07.9 - Chest pain, unspecified Disposition: OP ADMIT IP TO THIS HOSP Is pt being admited?: Yes Does the pt Need Aspirin: No Condition: Critical Time of Disposition: 21:25
[2021-01-26] MEDS ORDERED: CALCIUM CHLORIDE 1,000 MG/10 ML SYRINGE IV ONE ×2 (20:49→23:40)
[2021-01-26] MEDS ORDERED: HYDROmorphone 1 MG/1 ML INJ IV ONE (20:49)
[2021-01-26] MEDS ORDERED: INSULIN REGULAR, HUMAN 100 UNITS/1 ML IV ONE (20:49)
[2021-01-26] MEDS ORDERED: DEXTROSE 50% IN WATER (25GM) 50 ML SYRINGE IV ONE ×3 (20:49→23:52)
[2021-01-26] MEDS ORDERED: DEXTROSE 50% IN WATER (25GM) 50 ML VIAL IV ONE (20:49)
[2021-01-26] MEDS ORDERED: SODIUM POLYSTYRENE 15 GM/60 ML ORAL LIQD PO ONE ×2 (20:50→22:30)
[2021-01-26] MEDS ORDERED: ONDANSETRON 4 MG/2 ML INJ IV ONE (20:50)
[2021-01-26] MEDS ORDERED: SODIUM CHLORIDE 0.9% 100 ML IV PRN (21:10)
--- NOTE | 2021-01-26 21:17 | Event Note ---
Date: 01/26/21 Patient presents with chest pain. This has been going on for 24 hours. Not associated with exertion. EKG unavailable on file for review but per ER physician no acute ST/T wave changes present concerning for ischemia. Troponin within normal limits. Severe hyperkalemia noted. Stat HD ordered. ER physician notified charge nurse to call correspondence review clerk HD nurse. Shanell Pinto MD
[2021-01-26] MEDS ORDERED: MORPHINE 4 MG/1 ML INJ IV PRN (21:58)
[2021-01-26] MEDS ORDERED: NITROGLYCERIN 0.4 MG TAB SUBL SL PRN (21:58)
[2021-01-26] MEDS ORDERED: ACETAMINOPHEN 325 MG TAB PO PRN (21:58)
[2021-01-26] MEDS ORDERED: traMADol 50 MG TAB PO PRN (21:58)
--- NOTE | 2021-01-26 22:07 | History and Physical Report ---
History of Present Illness Date of examination: 01/26/21 Date of admission: 01/26/21 21:25 Chief complaint: Chest pain History of present illness: 35-year-old female with history of end-stage renal disease on hemodialysis Sunday and Sunday was brought to emergency room with complaints of chest pain. Patient also complaining of nausea and vomiting. Patient states she is having mild shortness of breath. Patient denies diaphoresis. Patient complaining of chest pain is radiating to her left upper extremity, chest pain is a 10 out of 10 since last night patient chest pain is better with rest and worse with exertion. Patient states that her shortness of breath is better with rest and worse with exertion. Patient states she has not missed dialysis. In the ER initial cardiac enzyme is negative but patient potassium is 7.7 BUN 52 and creatinine 9.8. Also proBNP is 1945. Patient got insulin D50 calcium gluconate. Nephrology is emergently consulted for dialysis tonight. Past History Past Medical History: renal failure Medications and Allergies Allergies Allergy/AdvReac Type Severity Reaction Status Date / Time acetaminophen [From Percocet] Allergy Itching Verified 01/26/21 18:45 hydrocodone bitartrate Allergy Itching Verified 01/26/21 18:45 [From Vicodin] morphine Allergy Itching Verified 01/26/21 18:45 oxycodone Allergy Itching Verified 01/26/21 18:45 tramadol Allergy Hives Verified 01/26/21 18:45 metoclopramide HCl AdvReac Unknown Verified 01/26/21 18:45 [From Reglan] Home Medications Medication Instructions Recorded Confirmed Last Taken Type sevelamer HCL [Renagel] 800 mg PO TIDWM #30 tablet 06/24/15 02/29/20 1 Day Ago Rx ~07/18/17 Aspirin 81 mg PO DAILY 12/08/19 02/29/20 Unknown History Coreg 25 mg PO BID 12/08/19 02/29/20 Unknown History Pepcid 20 mg PO DAILY 12/08/19 02/29/20 Unknown History Plavix 75 mg PO DAILY 12/08/19 02/29/20 Unknown History Hydroxychloroquine [Plaquenil] 200 mg PO QDAY #30 tablet 03/02/20 Unknown Rx Sodium Polystyrene Sulfonate 60 gm PO NOW #240 ml 05/03/20 Unknown Rx Active Meds: Active Medications Acetaminophen (Acetaminophen 325 Mg Tab) 650 mg PO Q6H PRN PRN Reason: Pain, Mild (1-3) Aspirin (Aspirin 81 Mg Tab Chew) 81 mg PO QDAY [facility] Atorvastatin Calcium (Atorvastatin 40 Mg Tab) 40 mg PO QHS [facility] Docusate Sodium (Docusate Sodium 100 Mg Cap) 100 mg PO BID [facility] Hydroxychloroquine Sulfate (Hydroxychloroquine 200 Mg Tab) 200 mg PO QDAY [facility] Sodium Chloride (Nacl 0.9%) 100 mls @ 999 mls/hr IV JOSEPH PRN PRN Reason: Hypotension Miscellaneous Medication (Aspirin) 81 mg PO DAILY [facility] Miscellaneous Medication (Coreg) 25 mg PO BID [facility] Miscellaneous Medication (Plavix) 75 mg PO DAILY [facility] Miscellaneous Medication (Sevelamer Hcl [Renagel]) 800 mg PO TIDWM [facility] Miscellaneous Medication (Sodium Polystyrene Sulfonate [Sodium Polystyrene Sulfonate]) 60 gm PO NOW [facility] Morphine Sulfate (Morphine 4 Mg/1 Ml Inj) 2 mg IV Q5MIN PRN PRN Reason: Chest Pain Nitroglycerin (Nitroglycerin 0.4 Mg Tab Subl) 0.4 mg SL Q5M PRN PRN Reason: Chest Pain Pantoprazole Sodium (Pantoprazole 40 Mg Tab) 40 mg PO QDAY [facility] Sodium Chloride (Sodium Chloride 0.9% 10 Ml Flush Syringe) 10 ml IV PRN PRN PRN Reason: LINE FLUSH Tramadol HCl (Tramadol 50 Mg Tab) 50 mg PO Q6H PRN PRN Reason: Pain, Moderate (4-6) Review of Systems Cardiovascular: chest pain, shortness of breath Respiratory: shortness of breath, dyspnea on exertion Exam - Constitutional Vitals: Temp Pulse Resp BP Pulse Ox 97.6 F 82 16 160/102 99 01/26/21 18:53 01/26/21 19:30 01/26/21 19:38 01/26/21 19:30 01/26/21 19:30 General appearance: Present: no acute distress, mild distress, well-nourished - EENT Eyes: Present: PERRL ENT: hearing intact, clear oral mucosa - Neck Neck: Present: supple, normal ROM - Respiratory Respiratory effort: normal Respiratory: bilateral: diminished - Cardiovascular Rhythm: regular Heart Sounds: Present: S1 & S2. Absent: rub, click - Extremities Extremities: pulses symmetrical, No edema Peripheral Pulses: within normal limits - Abdominal General gastrointestinal: Present: soft, non-tender, non-distended, normal bowel sounds Female genitourinary: Present: normal - Integumentary Integumentary: Present: clear, warm, dry - Musculoskeletal Musculoskeletal: gait normal, strength equal bilaterally - Psychiatric Psychiatric: appropriate mood/affect, intact judgment & insight - Neurologic Neurologic: CNII-XII intact, moves all extremities HEART Score - HEART Score EKG: Non-specific Age: < 45 Risk factors: > 3 risk factors or hx of atherosclerotic disease Troponin: Troponin T 0.018 ng/mL (0.00-0.029) 01/26/21 19:07 Troponin T TNR 01/26/21 19:07 Troponin: < normal limit Results - Labs CBC & Chem 7: 01/26/21 19:07 01/26/21 19:07 Labs: Laboratory Last Values WBC 9.0 K/mm3 (4.5-11.0) 01/26/21 19:07 RBC 3.53 M/mm3 (3.65-5.03) L 01/26/21 19:07 Hgb 11.4 gm/dl (10.1-14.3) 01/26/21 19:07 Hct 35.0 % (30.3-42.9) 01/26/21 19:07 MCV 99 fl (79-97) H 01/26/21 19:07 MCH 32 pg (28-32) 01/26/21 19:07 MCHC 33 % (30-34) 01/26/21 19:07 RDW 17.3 % (13.2-15.2) H 01/26/21 19:07 Plt Count 243 K/mm3 (140-440) 01/26/21 19:07 Lymph % (Auto) 22.1 % (13.4-35.0) 01/26/21 19:07 [place] % (Auto) 9.1 % (0.0-7.3) H 01/26/21 19:07 Eos % (Auto) 0.8 % (0.0-4.3) 01/26/21 19:07 Baso % (Auto) 0.4 % (0.0-1.8) 01/26/21 19:07 Lymph # (Auto) 2.0 K/mm3 (1.2-5.4) 01/26/21 19:07 [place] # (Auto) 0.8 K/mm3 (0.0-0.8) 01/26/21 19:07 Eos # (Auto) 0.1 K/mm3 (0.0-0.4) 01/26/21 19:07 Baso # (Auto) 0.0 K/mm3 (0.0-0.1) 01/26/21 19:07 Seg Neutrophils % 67.6 % (40.0-70.0) 01/26/21 19:07 Seg Neutrophils # 6.1 K/mm3 (1.8-7.7) 01/26/21 19:07 PT 13.2 Sec. (12.2-14.9) 01/26/21 19:07 INR 1.02 (0.87-1.13) 01/26/21 19:07 APTT 29.9 Sec. (24.2-36.6) 01/26/21 19:07 Sodium 139 mmol/L (137-145) 01/26/21 19:07 Sodium TNR 01/26/21 19:07 Potassium 7.7 mmol/L (3.6-5.0) H* 01/26/21 19:07 Potassium TNR 01/26/21 19:07 Chloride 100.6 mmol/L (98-107) 01/26/21 19:07 Chloride TNR 01/26/21 19:07 Carbon Dioxide 22 mmol/L (22-30) 01/26/21 19:07 Carbon Dioxide TNR 01/26/21 19:07 Anion Gap 24 mmol/L 01/26/21 19:07 Anion Gap TNR 01/26/21 19:07 BUN 52 mg/dL (7-17) H 01/26/21 19:07 BUN TNR 01/26/21 19:07 Creatinine 9.8 mg/dL (0.6-1.2) H 01/26/21 19:07 Creatinine TNR 01/26/21 19:07 Estimated GFR 5 ml/min 01/26/21 19:07 Estimated GFR TNR 01/26/21 19:07 BUN/Creatinine Ratio 5 % 01/26/21 19:07 BUN/Creatinine Ratio TNR 01/26/21 19:07 Glucose 97 mg/dL (65-100) 01/26/21 19:07 Glucose TNR 01/26/21 19:07 Calcium 8.4 mg/dL (8.4-10.2) 01/26/21 19:07 Calcium TNR 01/26/21 19:07 Total Bilirubin 0.20 mg/dL (0.1-1.2) 01/26/21 19:07 Total Bilirubin TNR 01/26/21 19:07 AST 17 units/L (5-40) 01/26/21 19:07 AST TNR 01/26/21 19:07 ALT 9 units/L (7-56) 01/26/21 19:07 ALT TNR 01/26/21 19:07 Alkaline Phosphatase 94 units/L (35-129) 01/26/21 19:07 Alkaline Phosphatase TNR 01/26/21 19:07 Troponin T 0.018 ng/mL (0.00-0.029) 01/26/21 19:07 Troponin T TNR 01/26/21 19:07 NT-Pro-B Natriuret Pep 1945 pg/mL (0-450) H 01/26/21 19:07 Total Protein 6.5 g/dL (6.3-8.2) 01/26/21 19:07 Total Protein TNR 01/26/21 19:07 Albumin 4.2 g/dL (3.9-5) 01/26/21 19:07 Albumin TNR 01/26/21 19:07 Albumin/Globulin Ratio 1.8 % 01/26/21 19:07 Albumin/Globulin Ratio TNR 01/26/21 19:07 HCG, Qual Negative (Negative) 01/26/21 19:07 - Imaging and Cardiology Chest x-ray: image reviewed Assessment and Plan VTE prophylaxis?: Chemical Plan of care discussed with patient/family: Yes - Patient Problems (1) Chest pain Current Visit: Yes Status: Acute Qualifiers: Chest pain type: unspecified Qualified Code(s): R07.9 - Chest pain, unspecified Plan to address problem: Admit the patient to the IMCU. Put the patient on aspirin 81 mg p.o. daily. Lipitor 40 mg p.o. daily. Nitroglycerin as needed. Protonix 40 mg p.o. daily. We will do the serial cardiac enzyme. We also do echocardiogram. Will consult cardiology for further evaluation and treatment. Heparin 5000 units subcu every 8 hours for DVT prophylaxis Patient is a full code (2) Hyperkalemia Current Visit: Yes Status: Acute Plan to address problem: We will admit the patient to the IMCU. Patient already got insulin 10 units IV x1 dose D50 and calcium gluconate 1 g IV x1 dose. Will consult nephrology for emergent dialysis. Recheck CBC BMP in the morning. We will monitor the patient closely (3) Shortness of breath Current Visit: Yes Status: Acute Plan to address problem: Oxygen by nasal cannula 3 L/min. DuoNeb by nebulizer every 4 hours as needed. We will do the hemodialysis tonight. We will monitor the patient closely. (4) ESRD (end stage renal disease) on dialysis Current Visit: Yes Status: Chronic Plan to address problem: Patient has end-stage renal disease on hemodialysis Sunday and Sunday. We consulted nephrology for hemodialysis today because of hyperkalemia. Recheck BMP in the morning (5) ACS (acute coronary syndrome) Current Visit: No Status: Acute Plan to address problem: Admit the patient to the IMCU. Put the patient on aspirin 81 mg p.o. daily. Lipitor 40 mg p.o. daily. Nitroglycerin as needed. Protonix 40 mg p.o. daily. We will do the serial cardiac enzyme. We also do echocardiogram. Will consult cardiology for further evaluation and treatment. Heparin 5000 units subcu every 8 hours for DVT prophylaxis Patient is a full code (6) DVT prophylaxis Current Visit: Yes Status: Acute Plan to address problem: Heparin 5000 units subcu every 8 hours for DVT prophylaxis. Protonix 40 mg p.o. daily for GI prophylaxis patient is a full code
[2021-01-27] MEDS ORDERED: DEXTROSE 50% IN WATER (25GM) 50 ML SYRINGE IV ONE (00:05)
[2021-01-27 00:33] LABS: Basophils # (Auto) 0.1 K/mm3 (0.0-0.1); Basophils % (Auto) 0.9 % (0.0-1.8); Eosinophils # (Auto) 0.1 K/mm3 (0.0-0.4); Eosinophils % (Auto) 1.3 % (0.0-4.3); Hemoglobin 11.1 gm/dl (10.1-14.3); Lymphocytes # (Auto) 2.7 K/mm3 (1.2-5.4); Lymphocytes % (Auto) 27.9 % (13.4-35.0); Mean Corpuscular HGB Conc 33 % (30-34); Mean Corpuscular Volume 101 fl (79-97); Monocytes % (Auto) 10.8 % (0.0-7.3); Platelet Count 220 K/mm3 (140-440); Red Blood Count 3.38 M/mm3 (3.65-5.03)
[2021-01-27 00:56] LABS: Calcium 8.9 mg/dL (8.4-10.2)
[2021-01-27] MEDS: HYDROmorphone 1 MG/1 ML INJ IV PRN ×7 (03:47→21:03)
[2021-01-27] MEDS ORDERED: diphenhydrAMINE 50 MG/ML VIAL IV NR ×2 (06:00)
[2021-01-27] MEDS ORDERED: ONDANSETRON 4 MG/2 ML INJ ONE (06:04)
[2021-01-27] MEDS ORDERED: diphenhydrAMINE 50 MG/ML VIAL ONE ×2 (06:04→11:42)
[2021-01-27] MEDS ORDERED: ONDANSETRON 4 MG/2 ML INJ IV PRN (06:30)
[2021-01-27 07:15] LABS: Hepatitis B Surface Antigen Non-Reactive (Negative); Hepatitis C Virus Antibody Non-Reactive (NonReactive)
--- NOTE | 2021-01-27 08:59 | Consultation ---
History of Present Illness - Reason for Consult Consult date: 01/27/21 end stage renal disease Past History Past Medical History: renal failure Medications and Allergies Allergies Allergy/AdvReac Type Severity Reaction Status Date / Time acetaminophen [From Percocet] Allergy Itching Verified 01/26/21 18:45 hydrocodone bitartrate Allergy Itching Verified 01/26/21 18:45 [From Vicodin] morphine Allergy Itching Verified 01/26/21 18:45 oxycodone Allergy Itching Verified 01/26/21 18:45 tramadol Allergy Hives Verified 01/26/21 18:45 metoclopramide HCl AdvReac Unknown Verified 01/26/21 18:45 [From Reglan] Home Medications Medication Instructions Recorded Confirmed Last Taken Type sevelamer HCL [Renagel] 800 mg PO TIDWM #30 tablet 06/24/15 02/07/21 02/06/21 14:00 Rx Aspirin 81 mg PO DAILY 12/08/19 02/07/21 02/06/21 09:00 History Coreg 25 mg PO BID 12/08/19 02/07/21 02/06/21 16:00 History Plavix 75 mg PO DAILY 12/08/19 02/29/20 Unknown History Hydroxychloroquine [Plaquenil] 200 mg PO QDAY #30 tablet 03/02/20 02/07/21 02/06/21 09:00 Rx Sodium Polystyrene Sulfonate 60 gm PO NOW #240 ml 05/03/20 Unknown Rx AtorvaSTATin [Lipitor] 40 mg PO QHS #30 tablet 01/31/21 02/07/21 02/06/21 21:00 Rx Pantoprazole [Protonix] 40 mg PO QDAY #30 tablet 02/08/21 Unknown Rx Active Meds: Active Medications Acetaminophen (Acetaminophen 325 Mg Tab) 650 mg PO Q6H PRN PRN Reason: Pain, Mild (1-3) Aspirin (Aspirin Ec 81 Mg Tab) 81 mg PO DAILY [facility] Atorvastatin Calcium (Atorvastatin 40 Mg Tab) 40 mg PO QHS [facility] Carvedilol (Carvedilol 25 Mg Tab) 25 mg PO BID [facility] Clopidogrel Bisulfate (Clopidogrel 75 Mg Tab) 75 mg PO DAILY [facility] Docusate Sodium (Docusate Sodium 100 Mg Cap) 100 mg PO BID [facility] Heparin Sodium (Porcine) (Heparin 5,000 Unit/1 Ml Vial) 5,000 unit SUB-Q Q8HR [facility] Hydromorphone HCl (Hydromorphone 1 Mg/1 Ml Inj) 1 mg IV Q3H PRN PRN Reason: Pain , Severe (7-10) Last Admin: 01/27/21 07:48 Dose: 1 mg Documented by: Hydroxychloroquine Sulfate (Hydroxychloroquine 200 Mg Tab) 200 mg PO QDAY [facility] Sodium Chloride (Nacl 0.9%) 100 mls @ 999 mls/hr IV JOSEPH PRN PRN Reason: Hypotension Nitroglycerin (Nitroglycerin 0.4 Mg Tab Subl) 0.4 mg SL Q5M PRN PRN Reason: Chest Pain Ondansetron HCl (Ondansetron 4 Mg/2 Ml Inj) 4 mg IV Q6H PRN PRN Reason: Nausea And Vomiting Pantoprazole Sodium (Pantoprazole 40 Mg Tab) 40 mg PO QDAY [facility] Sevelamer Carbonate (Sevelamer Carbonate 800 Mg Tab) 800 mg PO TIDWM [facility] Sodium Chloride (Sodium Chloride 0.9% 10 Ml Flush Syringe) 10 ml IV PRN PRN PRN Reason: LINE FLUSH Tramadol HCl (Tramadol 50 Mg Tab) 50 mg PO Q6H PRN PRN Reason: Pain, Moderate (4-6) Exam - Vital Signs Vital signs: Vital Signs Temp Pulse Resp BP Pulse Ox 97.6 F 100 H 18 161/107 100 01/26/21 18:53 01/26/21 18:53 01/26/21 18:53 01/26/21 18:53 01/26/21 18:53 Results - Lab Results 01/27/21 00:00 01/31/21 05:03 Most recent lab results Calcium 8.9 mg/dL (8.4-10.2) 01/27/21 00:00 Assessment and Plan Assessment * Severe Hyperkalemia * ESRD * Chest pain * Hypertension * SLE * Anemia secondary to ESRD * Secondary hyperparathyroidism Plan: * Patient is s/p HD on Sunday and Sunday due to refractory hyperkalemia * Continue MWF and prn schedule * UF as tolerated with HD * Renal diet
[2021-01-27] MEDS: DOCUSATE SODIUM 100 MG CAP PO SCH ×3 (09:40→21:02)
[2021-01-27] MEDS: carvediloL 25 MG TAB PO SCH ×3 (09:40→21:02)
[2021-01-27] MEDS: ASPIRIN EC 81 MG TAB PO SCH ×2 (09:41→10:48)
[2021-01-27] MEDS: PANTOPRAZOLE 40 MG TAB PO SCH ×2 (09:41→10:48)
[2021-01-27] MEDS: CLOPIDOGREL 75 MG TAB PO SCH ×2 (09:41→10:48)
[2021-01-27] MEDS: HEPARIN 5,000 UNIT/1 ML VIAL SUB-Q SCH ×3 (09:41→21:02)
[2021-01-27] MEDS ORDERED: ASPIRIN 81 MG TAB CHEW PO SCH (10:00)
--- NOTE | 2021-01-27 10:09 | Consultation ---
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 Pt has been seen by our practice on previous admissions. She presents to [facility] ER c/o chest pain, ANTONINO, N/V x 1 day. Pt initially described her CP as 10/10 sharp, radiating to the left arm, and worse with inspiration and exertion. Pt is not currently experiencing any chest discomfort. She is a dialysis pt and has a significantly elevated initial potassium of 7.7. Pt denies missing any scheduled dialysis appointments. Pt reports compliance with home medications. Troponin negative x 2. ECG negative for ST elevation. CXR negative for acute findings. CTA Chest Pending. CABG at [facility] (06/21/2020): CABG x 4. VEGA to LAD, SVG to ALOM, AVG to PLON, SVG to PDA. 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 Echo (07/2020): EF 60-65%. Mild LVH. Grade I diastolic disfunction. Mild AI. Severe posterior MAC. Mild TR. Lexiscan MPI stress test (01/2018): negative for ischemia. LHC (06/2015): patent LAD stent and otherwise normal coronaries. [facility] with PCI (06/2014): 90% mid LAD lesion with a STEVEN at [facility]. Past History Past Medical History: renal failure, other (See HPI) Past Surgical History: CABG Medications and Allergies Allergies Allergy/AdvReac Type Severity Reaction Status Date / Time acetaminophen [From Percocet] Allergy Itching Verified 01/26/21 18:45 hydrocodone bitartrate Allergy Itching Verified 01/26/21 18:45 [From Vicodin] morphine Allergy Itching Verified 01/26/21 18:45 oxycodone Allergy Itching Verified 01/26/21 18:45 tramadol Allergy Hives Verified 01/26/21 18:45 metoclopramide HCl AdvReac Unknown Verified 01/26/21 18:45 [From Reglan] Home Medications Medication Instructions Recorded Confirmed Last Taken Type sevelamer HCL [Renagel] 800 mg PO TIDWM #30 tablet 06/24/15 02/29/20 1 Day Ago Rx ~07/18/17 Aspirin 81 mg PO DAILY 12/08/19 02/29/20 Unknown History Coreg 25 mg PO BID 12/08/19 02/29/20 Unknown History Pepcid 20 mg PO DAILY 12/08/19 02/29/20 Unknown History Plavix 75 mg PO DAILY 12/08/19 02/29/20 Unknown History Hydroxychloroquine [Plaquenil] 200 mg PO QDAY #30 tablet 03/02/20 Unknown Rx Sodium Polystyrene Sulfonate 60 gm PO NOW #240 ml 05/03/20 Unknown Rx Active Meds: Active Medications Acetaminophen (Acetaminophen 325 Mg Tab) 650 mg PO Q6H PRN PRN Reason: Pain, Mild (1-3) Aspirin (Aspirin Ec 81 Mg Tab) 81 mg PO DAILY [facility] Last Admin: 01/27/21 09:41 Dose: Not Given Documented by: Atorvastatin Calcium (Atorvastatin 40 Mg Tab) 40 mg PO QHS [facility] Last Admin: 01/27/21 09:41 Dose: Not Given Documented by: Carvedilol (Carvedilol 25 Mg Tab) 25 mg PO BID [facility] Last Admin: 01/27/21 09:40 Dose: Not Given Documented by: Clopidogrel Bisulfate (Clopidogrel 75 Mg Tab) 75 mg PO DAILY [facility] Last Admin: 01/27/21 09:41 Dose: Not Given Documented by: Docusate Sodium (Docusate Sodium 100 Mg Cap) 100 mg PO BID [facility] Last Admin: 01/27/21 09:40 Dose: Not Given Documented by: Heparin Sodium (Porcine) (Heparin 5,000 Unit/1 Ml Vial) 5,000 unit SUB-Q Q8HR [facility] Last Admin: 01/27/21 09:41 Dose: Not Given Documented by: Hydromorphone HCl (Hydromorphone 1 Mg/1 Ml Inj) 1 mg IV Q3H PRN PRN Reason: Pain , Severe (7-10) Last Admin: 01/27/21 07:48 Dose: 1 mg Documented by: Hydroxychloroquine Sulfate (Hydroxychloroquine 200 Mg Tab) 200 mg PO QDAY [facility] Sodium Chloride (Nacl 0.9%) 100 mls @ 999 mls/hr IV JOSEPH PRN PRN Reason: Hypotension Nitroglycerin (Nitroglycerin 0.4 Mg Tab Subl) 0.4 mg SL Q5M PRN PRN Reason: Chest Pain Ondansetron HCl (Ondansetron 4 Mg/2 Ml Inj) 4 mg IV Q6H PRN PRN Reason: Nausea And Vomiting Pantoprazole Sodium (Pantoprazole 40 Mg Tab) 40 mg PO QDAY [facility] Last Admin: 01/27/21 09:41 Dose: Not Given Documented by: Sevelamer Carbonate (Sevelamer Carbonate 800 Mg Tab) 800 mg PO TIDWM [facility] Sodium Chloride (Sodium Chloride 0.9% 10 Ml Flush Syringe) 10 ml IV PRN PRN PRN Reason: LINE FLUSH Tramadol HCl (Tramadol 50 Mg Tab) 50 mg PO Q6H PRN PRN Reason: Pain, Moderate (4-6) Review of Systems Constitutional: no weight loss, no weight gain, no fever, no chills, no sweats Ears, nose, mouth and throat: no ear pain, no ear discharge, no nose pain, no nasal congestion, no nasal discharge, no sinus pressure Cardiovascular: chest pain, shortness of breath, no palpitations, no rapid/irregular heart beat, no edema, no syncope, no lightheadedness Respiratory: shortness of breath, dyspnea on exertion, no cough, no cough with sputum, no hemoptysis Gastrointestinal: no abdominal pain, no nausea, no vomiting, no diarrhea, no constipation Genitourinary Female: no pelvic pain, no flank pain Musculoskeletal: no neck stiffness, no neck pain, no shooting arm pain, no arm numbness/tingling, no low back pain, no shooting leg pain, no leg numbness/tingling Integumentary: no rash, no pruritis, no redness, no sores, no wounds Neurological: no head injury, no paralysis, no weakness, no parathesias, no numbness, no tingling, no seizures, no syncope Psychiatric: no anxiety Endocrine: no cold intolerance, no heat intolerance Hematologic/Lymphatic: no easy bruising, no easy bleeding Allergic/Immunologic: no urticaria Physical Examination Last Vital Signs Temp 97.9 F 01/27/21 08:00 Pulse 73 01/27/21 09:00 Resp 14 01/27/21 09:00 BP 130/85 01/27/21 09:00 Pulse Ox 99 01/27/21 09:00 General appearance: no acute distress HEENT: Positive: PERRL, Normocephaly, Mucus Membranes Moist Neck: Positive: neck supple, trachea midline Cardiac: Positive: Reg Rate and Rhythm, S1/S2 Lungs: Positive: clear to auscultation, Normal Breath Sounds Neuro: Positive: Grossly Intact Abdomen: Positive: Unremarkable Skin: Negative: Rash, Wound Extremities: Present: upper extr. pulses, lower extr. pulses. Absent: edema Results 01/27/21 00:00 01/27/21 04:00 Cardiac Enzymes 01/26/21 01/26/21 Range/Units 19:07 19:07 AST TNR 17 Coagulation 01/26/21 Range/Units 19:07 PT 13.2 (12.2-14.9) Sec. INR 1.02 (0.87-1.13) APTT 29.9 (24.2-36.6) Sec. CBC 01/26/21 01/27/21 Range/Units 19:07 00:00 WBC 9.0 9.6 (4.5-11.0) K/mm3 RBC 3.53 L 3.38 L (3.65-5.03) M/mm3 Hgb 11.4 11.1 (10.1-14.3) gm/dl Hct 35.0 34.0 (30.3-42.9) % Plt Count 243 220 (140-440) K/mm3 Lymph # (Auto) 2.0 2.7 (1.2-5.4) K/mm3 [place] # (Auto) 0.8 1.0 H (0.0-0.8) K/mm3 Eos # (Auto) 0.1 0.1 (0.0-0.4) K/mm3 Baso # (Auto) 0.0 0.1 (0.0-0.1) K/mm3 Comprehensive Metabolic Panel 01/26/21 01/26/21 01/27/21 Range/Units 19:07 19:07 00:00 Sodium TNR 139 140 Potassium TNR 7.7 H* 6.4 H* Chloride TNR 100.6 103.2 Carbon Dioxide TNR 22 20 L BUN TNR 52 H 54 H Creatinine TNR 9.8 H 9.9 H Glucose TNR 97 173 H Calcium TNR 8.4 8.9 AST TNR 17 ALT TNR 9 Alkaline Phosphatase TNR 94 Total Protein TNR 6.5 Albumin TNR 4.2 01/27/21 Range/Units 04:00 Sodium Potassium 4.9 D Chloride Carbon Dioxide BUN Creatinine Glucose Calcium AST ALT Alkaline Phosphatase Total Protein Albumin - Imaging and Cardiology Echo: report reviewed (Echo (07/2020): EF 60-65%. Mild LVH. Grade I diastolic disfunction. Mild AI. Severe posterior MAC. Mild TR. ) Cardiac cath: report reviewed ([facility] (06/2015): patent LAD stent and otherwise normal coronaries. ) EKG: report reviewed, image reviewed - EKG Interpretation EKG: sinus rhythm EKG interpretations - Telemetry EKG Rhythm: Sinus Rhythm - EKG Sinus rhythms and dysrhythmias: sinus rhythm Assessment and Plan Cardiology consulted for chest pain x 1 day. Currently chest pain is resolved. AMI has been ruled out. CXR is negative for acute findings. TTE done (07/2020): EF 60-65%. Mild LVH. Grade I diastolic disfunction. Mild AI. Severe posterior MAC. Mild TR. 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 Resume home cardiac regimen. COntinue electrolyte optimization via HD. 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 However pt is refusing IV placement and/or scan. Patient may transfer to telemetry from cardiology standpoint. Continue to monitor telemetry. Will follow. This patient was seen in conjunction with Dr Justice who agrees with this asse ssment and plan of care. - Patient Problems (1) Chest pain Current Visit: Yes Status: Acute Qualifiers: Chest pain type: unspecified Qualified Code(s): R07.9 - Chest pain, unspecified (2) Hx of coronary artery disease Current Visit: Yes Status: Chronic (3) S/P CABG x 4 Current Visit: Yes Status: Chronic (4) S/P PTCA (percutaneous transluminal coronary angioplasty) Current Visit: Yes Status: Chronic (5) ESRD (end stage renal disease) on dialysis Current Visit: Yes Status: Chronic (6) Hyperkalemia Current Visit: Yes Status: Acute (7) Lupus Current Visit: Yes Status: Chronic (8) Hyperlipidemia Current Visit: Yes Status: Chronic (9) Hypertension Current Visit: Yes Status: Chronic (10) Noncompliance Current Visit: Yes Status: Chronic
[2021-01-27] MEDS: SEVELAMER CARBONATE 800 MG TAB PO SCH ×3 (10:47→18:20)
[2021-01-27] MEDS: HYDROXYCHLOROQUINE 200 MG TAB PO SCH (10:48)
--- NOTE | 2021-01-27 11:21 | Electrocardiograph Report ---
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
--- NOTE | 2021-01-27 11:26 | Electrocardiograph Report ---
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 Electronically Signed On 01-27-2021 8:26:05 PDT by Prakash Justice
[2021-01-27] MEDS ORDERED: diphenhydrAMINE 50 MG/ML VIAL IV ONE (12:13)
--- NOTE | 2021-01-27 12:18 | Progress Note ---
Assessment and Plan Assessment and plan: (1) Chest pain Current Visit: Yes Status: Acute Qualifiers: Chest pain type: unspecified Qualified Code(s): R07.9 - Chest pain, unspecified Plan to address problem: Admit the patient to the [facility]. Put the patient on aspirin 81 mg p.o. daily. Lipitor 40 mg p.o. daily. Nitroglycerin as needed. Protonix 40 mg p.o. daily. We will do the serial cardiac enzyme. We also do echocardiogram. Will consult cardiology for further evaluation and treatment. Heparin 5000 units subcu every 8 hours for DVT prophylaxis Patient is a full code (2) Hyperkalemia Current Visit: Yes Status: Acute Plan to address problem: We will admit the patient to the IM. Patient already got insulin 10 units IV x1 dose D50 and calcium gluconate 1 g IV x1 dose. Will consult nephrology for emergent dialysis. Recheck CBC BMP in the morning. We will monitor the patient closely (3) Shortness of breath Current Visit: Yes Status: Acute Plan to address problem: Oxygen by nasal cannula 3 L/min. DuoNeb by nebulizer every 4 hours as needed. We will do the hemodialysis tonight. We will monitor the patient closely. (4) ESRD (end stage renal disease) on dialysis Current Visit: Yes Status: Chronic Plan to address problem: Patient has end-stage renal disease on hemodialysis Sunday and Sunday. We consulted nephrology for hemodialysis today because of hyperkalemia. Recheck BMP in the morning (5) ACS (acute coronary syndrome) Current Visit: No Status: Acute Plan to address problem: Admit the patient to the IM. Put the patient on aspirin 81 mg p.o. daily. Lipitor 40 mg p.o. daily. Nitroglycerin as needed. Protonix 40 mg p.o. daily. We will do the serial cardiac enzyme. We also do echocardiogram. Will consult cardiology for further evaluation and treatment. Heparin 5000 units subcu every 8 hours for DVT prophylaxis Patient is a full code (6) DVT prophylaxis Current Visit: Yes Status: Acute Plan to address problem: Heparin 5000 units subcu every 8 hours for DVT prophylaxis. Protonix 40 mg p.o. daily for GI prophylaxis patient is a full code 01/27/2021 -Patient is still complaining chest pain but getting better from admission condition. Patient denied any shortness of breath. -Patient was evaluated by cardiology and recommend no further cardiac work-up. Ordered CTA of the chest. -We will transfer her to the floor. -Patient had hyperkalemia and had dialysis yesterday. Potassium this morning was 4.9. Nephrology is following the patient. History Interval history: Patient was seen and evaluated this morning Patient is complaining left side chest pain No other complaints Hospitalist Physical - Physical exam Narrative exam: Not in cardiopulmonary distress. The patient appeared well nourished and normally developed. Vital signs as documented. Head exam is unremarkable. No scleral icterus . Neck is without jugular venous distension, thyromegaly, or carotid bruits. Lungs are clear to auscultation. Cardiac exam reveals regular rate and Rhythm. Abdominal exam reveals normal bowel sounds, nontender, no organomegaly. Extremities are nonedematous and both femoral and pedal pulses are normal. [employer]: Alert and oriented 3. No focal weakness. - Constitutional Vitals: Temp Pulse Resp BP Pulse Ox 97.9 F 75 12 131/94 99 01/27/21 08:00 01/27/21 12:00 01/27/21 12:00 01/27/21 12:00 01/27/21 12:00 General appearance: Present: no acute distress HEART Score - HEART Score EKG: Non-specific Age: < 45 Risk factors: > 3 risk factors or hx of atherosclerotic disease Troponin: Troponin T 0.025 ng/mL (0.00-0.029) 01/27/21 04:00 Troponin: < normal limit Results - Labs CBC & Chem 7: 01/27/21 00:00 01/27/21 04:00 Labs: Laboratory Last Values WBC 9.6 K/mm3 (4.5-11.0) 01/27/21 00:00 RBC 3.38 M/mm3 (3.65-5.03) L 01/27/21 00:00 Hgb 11.1 gm/dl (10.1-14.3) 01/27/21 00:00 Hct 34.0 % (30.3-42.9) 01/27/21 00:00 MCV 101 fl (79-97) H 01/27/21 00:00 MCH 33 pg (28-32) H 01/27/21 00:00 MCHC 33 % (30-34) 01/27/21 00:00 RDW 17.0 % (13.2-15.2) H 01/27/21 00:00 Plt Count 220 K/mm3 (140-440) 01/27/21 00:00 Lymph % (Auto) 27.9 % (13.4-35.0) 01/27/21 00:00 [place] % (Auto) 10.8 % (0.0-7.3) H 01/27/21 00:00 Eos % (Auto) 1.3 % (0.0-4.3) 01/27/21 00:00 Baso % (Auto) 0.9 % (0.0-1.8) 01/27/21 00:00 Lymph # (Auto) 2.7 K/mm3 (1.2-5.4) 01/27/21 00:00 [place] # (Auto) 1.0 K/mm3 (0.0-0.8) H 01/27/21 00:00 Eos # (Auto) 0.1 K/mm3 (0.0-0.4) 01/27/21 00:00 Baso # (Auto) 0.1 K/mm3 (0.0-0.1) 01/27/21 00:00 Seg Neutrophils % 59.1 % (40.0-70.0) 01/27/21 00:00 Seg Neutrophils # 5.7 K/mm3 (1.8-7.7) 01/27/21 00:00 PT 13.2 Sec. (12.2-14.9) 01/26/21 19:07 INR 1.02 (0.87-1.13) 01/26/21 19:07 APTT 29.9 Sec. (24.2-36.6) 01/26/21 19:07 Sodium 140 mmol/L (137-145) 01/27/21 00:00 Potassium 4.9 mmol/L (3.6-5.0) D 01/27/21 04:00 Chloride 103.2 mmol/L (98-107) 01/27/21 00:00 Carbon Dioxide 20 mmol/L (22-30) L 01/27/21 00:00 Anion Gap 23 mmol/L 01/27/21 00:00 BUN 54 mg/dL (7-17) H 01/27/21 00:00 Creatinine 9.9 mg/dL (0.6-1.2) H 01/27/21 00:00 Estimated GFR 5 ml/min 01/27/21 00:00 BUN/Creatinine Ratio 5 % 01/27/21 00:00 Glucose 173 mg/dL (65-100) H 01/27/21 00:00 POC Glucose 114 mg/dL (70-105) H 01/27/21 05:21 Calcium 8.9 mg/dL (8.4-10.2) 01/27/21 00:00 Total Bilirubin 0.20 mg/dL (0.1-1.2) 01/26/21 19:07 Total Bilirubin TNR 01/26/21 19:07 AST 17 units/L (5-40) 01/26/21 19:07 AST TNR 01/26/21 19:07 ALT 9 units/L (7-56) 01/26/21 19:07 ALT TNR 01/26/21 19:07 Alkaline Phosphatase 94 units/L (35-129) 01/26/21 19:07 Alkaline Phosphatase TNR 01/26/21 19:07 Troponin T 0.025 ng/mL (0.00-0.029) 01/27/21 04:00 NT-Pro-B Natriuret Pep 1945 pg/mL (0-450) H 01/26/21 19:07 Total Protein 6.5 g/dL (6.3-8.2) 01/26/21 19:07 Total Protein TNR 01/26/21 19:07 Albumin 4.2 g/dL (3.9-5) 01/26/21 19:07 Albumin TNR 01/26/21 19:07 Albumin/Globulin Ratio 1.8 % 01/26/21 19:07 Albumin/Globulin Ratio TNR 01/26/21 19:07 HCG, Qual Negative (Negative) 01/26/21 19:07 Hepatitis A IgM Ab Non-reactive (NonReactive) 01/27/21 04:00 Hep Bs Antigen Non-reactive (Negative) 01/27/21 04:00 Hep B Core IgM Ab Non-reactive (NonReactive) 01/27/21 04:00 Hepatitis C Antibody Non-reactive (NonReactive) 01/27/21 04:00 Active Medications - Current Medications Current Medications: Generic Name Dose Route Start Last Admin Trade Name Freq PRN Reason Stop Dose Admin Acetaminophen 650 mg 01/26/21 21:58 Acetaminophen 325 Mg Tab PO Q6H PRN Pain, Mild (1-3) Aspirin 81 mg 01/26/21 22:00 01/27/21 10:48 Aspirin Ec 81 Mg Tab PO Not Given DAILY [facility] Atorvastatin Calcium 40 mg 01/26/21 22:00 01/27/21 09:41 Atorvastatin 40 Mg Tab PO Not Given QHS [facility] Carvedilol 25 mg 01/26/21 22:00 01/27/21 10:48 Carvedilol 25 Mg Tab PO 25 mg BID [facility] Administration Clopidogrel Bisulfate 75 mg 01/26/21 22:00 01/27/21 10:48 Clopidogrel 75 Mg Tab PO Not Given DAILY [facility] Docusate Sodium 100 mg 01/26/21 22:00 01/27/21 10:48 Docusate Sodium 100 Mg Cap PO Not Given BID [facility] Heparin Sodium (Porcine) 5,000 unit 01/26/21 22:30 01/27/21 09:41 Heparin 5,000 Unit/1 Ml Vial SUB-Q Not Given Q8HR [facility] Hydromorphone HCl 1 mg 01/26/21 22:25 01/27/21 07:48 Hydromorphone 1 Mg/1 Ml Inj IV 1 mg Q3H PRN Administration Pain , Severe (7-10) Hydroxychloroquine Sulfate 200 mg 01/27/21 10:00 01/27/21 10:48 Hydroxychloroquine 200 Mg Tab PO Not Given QDAY [facility] Sodium Chloride 100 mls @ 999 mls/hr 01/26/21 21:10 Nacl 0.9% IV JOSEPH PRN Hypotension Nitroglycerin 0.4 mg 01/26/21 21:58 Nitroglycerin 0.4 Mg Tab Subl SL Q5M PRN Chest Pain Ondansetron HCl 4 mg 01/27/21 06:30 Ondansetron 4 Mg/2 Ml Inj IV Q6H PRN Nausea And Vomiting Pantoprazole Sodium 40 mg 01/26/21 22:00 01/27/21 10:48 Pantoprazole 40 Mg Tab PO Not Given QDAY [facility] Sevelamer Carbonate 800 mg 01/27/21 08:00 01/27/21 12:14 Sevelamer Carbonate 800 Mg Tab PO Not Given TIDWM [facility] Sodium Chloride 10 ml 01/26/21 21:58 Sodium Chloride 0.9% 10 Ml Flush Syringe IV PRN PRN LINE FLUSH Tramadol HCl 50 mg 01/26/21 21:58 Tramadol 50 Mg Tab PO Q6H PRN Pain, Moderate (4-6)
[2021-01-27] MEDS: diphenhydrAMINE 50 MG/ML VIAL IV PRN (21:25)
[2021-01-28] MEDS: HYDROmorphone 1 MG/1 ML INJ IV PRN ×7 (00:48→21:47)
[2021-01-28] MEDS: HEPARIN 5,000 UNIT/1 ML VIAL SUB-Q SCH ×3 (06:50→21:51)
[2021-01-28 08:42] LABS: Calcium 8.7 mg/dL (8.4-10.2)
[2021-01-28] MEDS ORDERED: CALCIUM GLUCONATE 1,000 MG in SODIUM CHLORIDE 0.9% 100 ML IV ONE (08:51)
[2021-01-28] MEDS ORDERED: SODIUM POLYSTYRENE 15 GM/60 ML ORAL LIQD PO ONE (08:51)
--- NOTE | 2021-01-28 09:02 | Progress Note ---
Assessment and Plan Assessment and plan: (1) Chest pain Current Visit: Yes Status: Acute Qualifiers: Chest pain type: unspecified Qualified Code(s): R07.9 - Chest pain, unspecified Plan to address problem: Admit the patient to the [facility]. Put the patient on aspirin 81 mg p.o. daily. Lipitor 40 mg p.o. daily. Nitroglycerin as needed. Protonix 40 mg p.o. daily. We will do the serial cardiac enzyme. We also do echocardiogram. Will consult cardiology for further evaluation and treatment. Heparin 5000 units subcu every 8 hours for DVT prophylaxis Patient is a full code (2) Hyperkalemia Current Visit: Yes Status: Acute Plan to address problem: We will admit the patient to the IM. Patient already got insulin 10 units IV x1 dose D50 and calcium gluconate 1 g IV x1 dose. Will consult nephrology for emergent dialysis. Recheck CBC BMP in the morning. We will monitor the patient closely (3) Shortness of breath Current Visit: Yes Status: Acute Plan to address problem: Oxygen by nasal cannula 3 L/min. DuoNeb by nebulizer every 4 hours as needed. We will do the hemodialysis tonight. We will monitor the patient closely. (4) ESRD (end stage renal disease) on dialysis Current Visit: Yes Status: Chronic Plan to address problem: Patient has end-stage renal disease on hemodialysis Sunday and Sunday. We consulted nephrology for hemodialysis today because of hyperkalemia. Recheck BMP in the morning (5) ACS (acute coronary syndrome) Current Visit: No Status: Acute Plan to address problem: Admit the patient to the IM. Put the patient on aspirin 81 mg p.o. daily. Lipitor 40 mg p.o. daily. Nitroglycerin as needed. Protonix 40 mg p.o. daily. We will do the serial cardiac enzyme. We also do echocardiogram. Will consult cardiology for further evaluation and treatment. Heparin 5000 units subcu every 8 hours for DVT prophylaxis Patient is a full code (6) DVT prophylaxis Current Visit: Yes Status: Acute Plan to address problem: Heparin 5000 units subcu every 8 hours for DVT prophylaxis. Protonix 40 mg p.o. daily for GI prophylaxis patient is a full code 01/27/2021 -Patient is still complaining chest pain but getting better from admission condition. Patient denied any shortness of breath. -Patient was evaluated by cardiology and recommend no further cardiac work-up. Ordered CTA of the chest. -We will transfer her to the floor. -Patient had hyperkalemia and had dialysis yesterday. Potassium this morning was 4.9. Nephrology is following the patient. 01/28/2021 -Patient refused CTA of the chest yesterday -Patient's potassium this morning was 6.5, ordered stat EKG, IV calcium gluconate, Kayexalate and asked the nurse to notify the psychological stress evaluator is following. -Cardiology is following. History Interval history: Patient was seen and evaluated this morning Patient is complaining left side chest pain No other complaints Hospitalist Physical - Physical exam Narrative exam: Not in cardiopulmonary distress. The patient appeared well nourished and normally developed. Vital signs as documented. Head exam is unremarkable. No scleral icterus . Neck is without jugular venous distension, thyromegaly, or carotid bruits. Lungs are clear to auscultation. Cardiac exam reveals regular rate and Rhythm. Abdominal exam reveals normal bowel sounds, nontender, no organomegaly. Extremities are nonedematous and both femoral and pedal pulses are normal. TAILERCPA: Alert and oriented 3. No focal weakness. - Constitutional Vitals: Temp Pulse Resp BP Pulse Ox 98.0 F 85 18 113/79 99 01/28/21 03:34 01/27/21 23:14 01/28/21 06:46 01/28/21 03:34 01/27/21 23:14 General appearance: Present: no acute distress HEART Score - HEART Score EKG: Non-specific Age: < 45 Risk factors: > 3 risk factors or hx of atherosclerotic disease Troponin: Troponin T 0.025 ng/mL (0.00-0.029) 01/27/21 04:00 Troponin: < normal limit Results - Labs CBC & Chem 7: 01/27/21 00:00 01/28/21 03:51 Labs: Laboratory Last Values WBC 9.6 K/mm3 (4.5-11.0) 01/27/21 00:00 RBC 3.38 M/mm3 (3.65-5.03) L 01/27/21 00:00 Hgb 11.1 gm/dl (10.1-14.3) 01/27/21 00:00 Hct 34.0 % (30.3-42.9) 01/27/21 00:00 MCV 101 fl (79-97) H 01/27/21 00:00 MCH 33 pg (28-32) H 01/27/21 00:00 MCHC 33 % (30-34) 01/27/21 00:00 RDW 17.0 % (13.2-15.2) H 01/27/21 00:00 Plt Count 220 K/mm3 (140-440) 01/27/21 00:00 Lymph % (Auto) 27.9 % (13.4-35.0) 01/27/21 00:00 [place] % (Auto) 10.8 % (0.0-7.3) H 01/27/21 00:00 Eos % (Auto) 1.3 % (0.0-4.3) 01/27/21 00:00 Baso % (Auto) 0.9 % (0.0-1.8) 01/27/21 00:00 Lymph # (Auto) 2.7 K/mm3 (1.2-5.4) 01/27/21 00:00 [place] # (Auto) 1.0 K/mm3 (0.0-0.8) H 01/27/21 00:00 Eos # (Auto) 0.1 K/mm3 (0.0-0.4) 01/27/21 00:00 Baso # (Auto) 0.1 K/mm3 (0.0-0.1) 01/27/21 00:00 Seg Neutrophils % 59.1 % (40.0-70.0) 01/27/21 00:00 Seg Neutrophils # 5.7 K/mm3 (1.8-7.7) 01/27/21 00:00 PT 13.2 Sec. (12.2-14.9) 01/26/21 19:07 INR 1.02 (0.87-1.13) 01/26/21 19:07 APTT 29.9 Sec. (24.2-36.6) 01/26/21 19:07 Sodium 139 mmol/L (137-145) 01/28/21 03:51 Potassium 6.5 mmol/L (3.6-5.0) H* D 01/28/21 03:51 Chloride 96.3 mmol/L (98-107) L 01/28/21 03:51 Carbon Dioxide 32 mmol/L (22-30) H D 01/28/21 03:51 Anion Gap 17 mmol/L 01/28/21 03:51 BUN 32 mg/dL (7-17) H 01/28/21 03:51 Creatinine 8.2 mg/dL (0.6-1.2) H 01/28/21 03:51 Estimated GFR 7 ml/min 01/28/21 03:51 BUN/Creatinine Ratio 4 % 01/28/21 03:51 Glucose 68 mg/dL (65-100) 01/28/21 03:51 POC Glucose 114 mg/dL (70-105) H 01/27/21 05:21 Calcium 8.7 mg/dL (8.4-10.2) 01/28/21 03:51 Total Bilirubin 0.20 mg/dL (0.1-1.2) 01/26/21 19:07 Total Bilirubin TNR 01/26/21 19:07 AST 17 units/L (5-40) 01/26/21 19:07 AST TNR 01/26/21 19:07 ALT 9 units/L (7-56) 01/26/21 19:07 ALT TNR 01/26/21 19:07 Alkaline Phosphatase 94 units/L (35-129) 01/26/21 19:07 Alkaline Phosphatase TNR 01/26/21 19:07 Troponin T 0.025 ng/mL (0.00-0.029) 01/27/21 04:00 NT-Pro-B Natriuret Pep 1945 pg/mL (0-450) H 01/26/21 19:07 Total Protein 6.5 g/dL (6.3-8.2) 01/26/21 19:07 Total Protein TNR 01/26/21 19:07 Albumin 4.2 g/dL (3.9-5) 01/26/21 19:07 Albumin TNR 01/26/21 19:07 Albumin/Globulin Ratio 1.8 % 01/26/21 19:07 Albumin/Globulin Ratio TNR 01/26/21 19:07 HCG, Qual Negative (Negative) 01/26/21 19:07 Coronavirus (PCR) Negative (Negative) 01/27/21 Unknown Hepatitis A IgM Ab Non-reactive (NonReactive) 01/27/21 04:00 Hep Bs Antigen Non-reactive (Negative) 01/27/21 04:00 Hep B Core IgM Ab Non-reactive (NonReactive) 01/27/21 04:00 Hepatitis C Antibody Non-reactive (NonReactive) 01/27/21 04:00 Active Medications - Current Medications Current Medications: Generic Name Dose Route Start Last Admin Trade Name Freq PRN Reason Stop Dose Admin Acetaminophen 650 mg 01/26/21 21:58 Acetaminophen 325 Mg Tab PO Q6H PRN Pain, Mild (1-3) Aspirin 81 mg 01/26/21 22:00 01/27/21 10:48 Aspirin Ec 81 Mg Tab PO Not Given DAILY [facility] Atorvastatin Calcium 40 mg 01/26/21 22:00 01/27/21 21:02 Atorvastatin 40 Mg Tab PO 40 mg QHS [facility] Administration Carvedilol 25 mg 01/26/21 22:00 01/27/21 21:02 Carvedilol 25 Mg Tab PO 25 mg BID [facility] Administration Clopidogrel Bisulfate 75 mg 01/26/21 22:00 01/27/21 10:48 Clopidogrel 75 Mg Tab PO Not Given DAILY [facility] Diphenhydramine HCl 25 mg 01/27/21 21:19 01/27/21 21:25 Diphenhydramine 50 Mg/Ml Vial IV 25 mg Q6H PRN Administration Itching Docusate Sodium 100 mg 01/26/21 22:00 01/27/21 21:02 Docusate Sodium 100 Mg Cap PO 100 mg BID [facility] Administration Heparin Sodium (Porcine) 5,000 unit 01/26/21 22:30 01/28/21 06:50 Heparin 5,000 Unit/1 Ml Vial SUB-Q Not Given Q8HR [facility] Hydromorphone HCl 1 mg 01/26/21 22:25 01/28/21 06:46 Hydromorphone 1 Mg/1 Ml Inj IV 1 mg Q3H PRN Administration Pain , Severe (7-10) Hydroxychloroquine Sulfate 200 mg 01/27/21 10:00 01/27/21 10:48 Hydroxychloroquine 200 Mg Tab PO Not Given QDAY [facility] Sodium Chloride 100 mls @ 999 mls/hr 01/26/21 21:10 Nacl 0.9% IV JOSEPH PRN Hypotension Calcium Gluconate 1,000 mg/ 110 mls @ 660 mls/hr 01/28/21 08:51 Sodium Chloride IV 01/28/21 09:00 ONCE ONE Nitroglycerin 0.4 mg 01/26/21 21:58 Nitroglycerin 0.4 Mg Tab Subl SL Q5M PRN Chest Pain Ondansetron HCl 4 mg 01/27/21 06:30 Ondansetron 4 Mg/2 Ml Inj IV Q6H PRN Nausea And Vomiting Pantoprazole Sodium 40 mg 01/26/21 22:00 01/27/21 10:48 Pantoprazole 40 Mg Tab PO Not Given QDAY [facility] Sevelamer Carbonate 800 mg 01/27/21 08:00 01/27/21 18:20 Sevelamer Carbonate 800 Mg Tab PO 800 mg TIDWM [facility] Administration Sodium Chloride 10 ml 01/26/21 21:58 01/28/21 06:50 Sodium Chloride 0.9% 10 Ml Flush Syringe IV 10 ml PRN PRN Administration LINE FLUSH Sodium Polystyrene Sulfonate 30 gm 01/28/21 08:51 Sodium Polystyrene 15 Gm/60 Ml Oral Liqd PO 01/28/21 08:52 ONCE ONE Tramadol HCl 50 mg 01/26/21 21:58 Tramadol 50 Mg Tab PO Q6H PRN Pain, Moderate (4-6)
[2021-01-28] MEDS: carvediloL 25 MG TAB PO SCH ×2 (09:19→21:46)
[2021-01-28] MEDS: SEVELAMER CARBONATE 800 MG TAB PO SCH ×3 (09:20→18:21)
[2021-01-28] MEDS: ASPIRIN EC 81 MG TAB PO SCH (09:21)
[2021-01-28] MEDS: DOCUSATE SODIUM 100 MG CAP PO SCH ×2 (09:21→21:46)
[2021-01-28] MEDS: CLOPIDOGREL 75 MG TAB PO SCH (09:22)
[2021-01-28] MEDS: HYDROXYCHLOROQUINE 200 MG TAB PO SCH (09:22)
[2021-01-28] MEDS: PANTOPRAZOLE 40 MG TAB PO SCH (09:22)
--- NOTE | 2021-01-28 09:54 | Electrocardiograph Report ---
[facility] Test Date: 2021-01-27 Test Time: 13:37:45 Pat Name: JHON SANZ Department: Room: A475 1 Gender: F Space Physicist: MOON : [id number] Requested By: TRINIDAD COSTA Order Number: [id number] Reading MD: Prakash Justice Measurements Intervals [place] Rate: 64 P: 45 [place]: 150 QRS: -16 QRSD: 89 T: 98 QT: 414 QTc: 427 Interpretive Statements Sinus rhythm Probable LVH with secondary repol abnrm Inferior infarct, old Compared to ECG 01/27/2021 09:35:01 Myocardial infarct finding now present Q waves no longer present Electronically Signed On 01-28-2021 6:53:38 PDT by Prakash Justice
--- NOTE | 2021-01-28 09:59 | Progress Note ---
Assessment and Plan Telemetry Reviewed: SR rate 77. No events overnight. Pt is alert and refused to see cardiology on rounds stating she was "washing up" and "Do not open the door." Pt sounds agitated. Also refused medications this am, refused IV and refused CT scan. Cardiology consulted for chest pain x 1 day. Currently chest pain is resolved. AMI has been ruled out. CXR is negative for acute findings. Covid 19 PCR is negative. Echo (01/26/21) reviewed: EF 55-60%. Mild TR. Mild LVH with impaired LV relaxation. 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 Continue home cardiac regimen. Continue electrolyte optimization via HD. 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 However pt is refusing IV placement and/or scan. Nothing further to add from cardiac perspective at this time. Will follow on as needed basis. Recommend pt f/u with either PHI or in our office with Dr Justice within 1-2 weeks of discharge. This patient was seen in conjunction with Dr Justice who agrees with this assessment and plan of care. - Patient Problems (1) Chest pain Current Visit: Yes Status: Acute Qualifiers: Chest pain type: unspecified Qualified Code(s): R07.9 - Chest pain, unspecified (2) Hx of coronary artery disease Current Visit: Yes Status: Chronic (3) S/P CABG x 4 Current Visit: Yes Status: Chronic (4) S/P PTCA (percutaneous transluminal coronary angioplasty) Current Visit: Yes Status: Chronic (5) ESRD (end stage renal disease) on dialysis Current Visit: Yes Status: Chronic (6) Hyperkalemia Current Visit: Yes Status: Acute (7) Lupus Current Visit: Yes Status: Chronic (8) Hyperlipidemia Current Visit: Yes Status: Chronic (9) Hypertension Current Visit: Yes Status: Chronic (10) Noncompliance Current Visit: Yes Status: Chronic Subjective Date of service: 01/28/21 Principal diagnosis: Chest Pain Interval history: Pt is alert and refused to see cardiology on rounds stating she was "washing up". Pt sounds agitated. Also refused medications this am, refused IV and refused CT scan. Telemetry Reviewed: SR rate 77. No events overnight. Objective Last Vital Signs Temp 98.0 F 01/28/21 03:34 Pulse 88 01/28/21 09:19 Resp 18 01/28/21 06:46 BP 126/94 01/28/21 09:19 Pulse Ox 99 01/27/21 23:14 - Physical Examination Narrative exam: Pt refused physical exam. Cardiac: Positive: Other (Pt refused to allow exam.) Lungs: Positive: Other (Pt refused to allow exam) - Labs and Meds Comprehensive Metabolic Panel 01/28/21 Range/Units 03:51 Sodium 139 (137-145) mmol/L Potassium 6.5 H* D (3.6-5.0) mmol/L Chloride 96.3 L (98-107) mmol/L Carbon Dioxide 32 H D (22-30) mmol/L BUN 32 H (7-17) mg/dL Creatinine 8.2 H (0.6-1.2) mg/dL Glucose 68 (65-100) mg/dL Calcium 8.7 (8.4-10.2) mg/dL - Imaging and Cardiology EKG: report reviewed, image reviewed Echo: report reviewed (Echo (07/2020): EF 60-65%. Mild LVH. Grade I diastolic disfunction. Mild AI. Severe posterior MAC. Mild TR. ) Cardiac cath: report reviewed ([facility] (06/2015): patent LAD stent and otherwise normal coronaries. ) - EKG Sinus rhythms and dysrhythmias: sinus rhythm
[2021-01-28] MEDS: predniSONE 5 MG TAB PO SCH (10:16)
[2021-01-28] MEDS ORDERED: SODIUM CHLORIDE 0.9% 100 ML IV PRN (10:30)
--- NOTE | 2021-01-28 14:28 | Cat Scan Report ---
CTA CHEST WITH IV CONTRAST INDICATION / CLINICAL INFORMATION: Chest pain on dialysis. TECHNIQUE: Axial CT images were obtained through the chest after injection of 100 cc Omnipaque 350 milligrams pe rcent IV contrast. 3 plane MIP and/or 3D reconstructions were produced. All CT scans at this location are performed using CT dose reduction for ALARA by means of automated exposure control. COMPARISON: None available. FINDINGS: PULMONARY ARTERIES: No pulmonary emboli. THORACIC AORTA: No significant abnormality. HEART: No significant abnormality. , CORONARY ARTERIES: Extensive coronary artery calcifications. PLEURA: No pleural effusion. No pneumothorax. LYMPH NODES: No significant adenopathy. LUNGS: Minimum patchy parenchymal changes left base ADDITIONAL FINDINGS: Multiple renal cyst UPPER ABDOMEN: No acute findings. SKELETAL STRUCTURES: No significant osseous abnormality. IMPRESSION: 1. No CT evidence for pulmonary embolism. 2. No acute findings. Signer Name: Deshawn Charles MD Signed: 01/28/2021 2:23 PM Workstation Name: [id number]
--- NOTE | 2021-01-28 19:19 | Progress Note ---
Assessment and Plan Assessment * Severe Hyperkalemia * ESRD * Chest pain * Hypertension * SLE * Anemia secondary to ESRD * Secondary hyperparathyroidism Plan: * HD today * Repeat K ordered post treatment today * Assess for need for HD tomorrow * Continue MWF and prn schedule * UF as tolerated with HD * Renal diet Subjective Date of service: 01/28/21 Principal diagnosis: Chest Pain Interval history: Patient transferred from ICU to floor. No acute events overnight. Objective - Vital Signs Vital signs: Vital Signs - 12hr 01/28/21 01/28/21 01/28/21 07:44 09:19 10:00 Temperature 97.9 F Pulse Rate 88 Respiratory 18 18 Rate Blood Pressure 126/94 126/94 O2 Sat by Pulse Oximetry [ Anterior Bilateral Throughout] 01/28/21 01/28/21 01/28/21 11:35 13:45 14:00 Temperature 98.0 F Pulse Rate 73 70 77 Respiratory 18 Rate Blood Pressure 120/86 149/88 O2 Sat by Pulse 100 Oximetry [ Anterior Bilateral Throughout] - General Appearance General appearance: well-developed, well-nourished EENT: ATNC Respiratory: Present: Clear to Ascultation Cardiology: regular, S1S2 Gastrointestinal: normal, no tenderness, no distended Integumentary: no rash, warm and dry Neurologic: alert and oriented x3 Psychiatric: cooperative - Lab 01/27/21 00:00 01/28/21 09:19 Most recent lab results Calcium 8.7 mg/dL (8.4-10.2) 01/28/21 03:51 Medications & Allergies - Medications Allergies/Adverse Reactions: Allergies acetaminophen [From Percocet] Allergy (Verified 01/26/21 18:45) Itching hydrocodone bitartrate [From Vicodin] Allergy (Verified 01/26/21 18:45) Itching morphine Allergy (Verified 01/26/21 18:45) Itching oxycodone Allergy (Verified 01/26/21 18:45) Itching tramadol Allergy (Verified 01/26/21 18:45) Hives metoclopramide HCl [From Reglan] Adverse Reaction (Verified 01/26/21 18:45) Unknown Home Medications: Home Medications Medication Instructions Recorded Confirmed Last Taken Type sevelamer HCL [Renagel] 800 mg PO TIDWM #30 tablet 06/24/15 02/29/20 1 Day Ago Rx ~07/18/17 Aspirin 81 mg PO DAILY 12/08/19 02/29/20 Unknown History Coreg 25 mg PO BID 12/08/19 02/29/20 Unknown History Pepcid 20 mg PO DAILY 12/08/19 02/29/20 Unknown History Plavix 75 mg PO DAILY 12/08/19 02/29/20 Unknown History Hydroxychloroquine [Plaquenil] 200 mg PO QDAY #30 tablet 03/02/20 Unknown Rx Sodium Polystyrene Sulfonate 60 gm PO NOW #240 ml 05/03/20 Unknown Rx Active Medications: Generic Name Dose Route Start Last Admin Trade Name Freq PRN Reason Stop Dose Admin Acetaminophen 650 mg 01/26/21 21:58 Acetaminophen 325 Mg Tab PO Q6H PRN Pain, Mild (1-3) Aspirin 81 mg 01/26/21 22:00 01/28/21 09:21 Aspirin Ec 81 Mg Tab PO 81 mg DAILY ADIA Administration Atorvastatin Calcium 40 mg 01/26/21 22:00 01/27/21 21:02 Atorvastatin 40 Mg Tab PO 40 mg QHS ADIA Administration Carvedilol 25 mg 01/26/21 22:00 01/28/21 09:19 Carvedilol 25 Mg Tab PO 25 mg BID ADIA Administration Clopidogrel Bisulfate 75 mg 01/26/21 22:00 01/28/21 09:22 Clopidogrel 75 Mg Tab PO Not Given DAILY [facility] Diphenhydramine HCl 25 mg 01/27/21 21:19 01/27/21 21:25 Diphenhydramine 50 Mg/Ml Vial IV 25 mg Q6H PRN Administration Itching Docusate Sodium 100 mg 01/26/21 22:00 01/28/21 09:21 Docusate Sodium 100 Mg Cap PO Not Given BID [facility] Heparin Sodium (Porcine) 5,000 unit 01/26/21 22:30 01/28/21 16:20 Heparin 5,000 Unit/1 Ml Vial SUB-Q Not Given Q8HR [facility] Hydromorphone HCl 1 mg 01/26/21 22:25 01/28/21 18:21 Hydromorphone 1 Mg/1 Ml Inj IV 1 mg Q3H PRN Administration Pain , Severe (7-10) Hydroxychloroquine Sulfate 200 mg 01/27/21 10:00 01/28/21 09:22 Hydroxychloroquine 200 Mg Tab PO Not Given QDAY ADIA Sodium Chloride 100 mls @ 999 mls/hr 01/28/21 10:30 Nacl 0.9% IV JOSEPH PRN Hypotension Nitroglycerin 0.4 mg 01/26/21 21:58 Nitroglycerin 0.4 Mg Tab Subl SL Q5M PRN Chest Pain Ondansetron HCl 4 mg 01/27/21 06:30 Ondansetron 4 Mg/2 Ml Inj IV Q6H PRN Nausea And Vomiting Pantoprazole Sodium 40 mg 01/26/21 22:00 01/28/21 09:22 Pantoprazole 40 Mg Tab PO Not Given QDAY ADIA Prednisone 5 mg 01/28/21 10:00 01/28/21 10:16 Prednisone 5 Mg Tab PO 5 mg QDAY ADIA Administration Sevelamer Carbonate 800 mg 01/27/21 08:00 01/28/21 18:21 Sevelamer Carbonate 800 Mg Tab PO 800 mg TIDWM ADIA Administration Sodium Chloride 10 ml 01/26/21 21:58 01/28/21 06:50 Sodium Chloride 0.9% 10 Ml Flush Syringe IV 10 ml PRN PRN Administration LINE FLUSH Tramadol HCl 50 mg 01/26/21 21:58 Tramadol 50 Mg Tab PO Q6H PRN Pain, Moderate (4-6)
[2021-01-28 21:23] LABS: Calcium 8.4 mg/dL (8.4-10.2)
[2021-01-29] MEDS: HYDROmorphone 1 MG/1 ML INJ IV PRN ×7 (00:49→21:23)
[2021-01-29] MEDS ORDERED: ALUM-MAG HYDROXIDE-SIMETHICONE 200-200-20MG/5ML ORAL LIQD 30 ML PO ONE (02:00)
[2021-01-29] MEDS ORDERED: ALUM-MAG HYDROXIDE-SIMETHICONE 200-200-20MG/5ML ORAL LIQD 30 ML ONE (02:21)
[2021-01-29] MEDS: HEPARIN 5,000 UNIT/1 ML VIAL SUB-Q SCH ×3 (05:29→21:27)
[2021-01-29 07:32] LABS: Calcium 8.1 mg/dL (8.4-10.2)
[2021-01-29] MEDS: SEVELAMER CARBONATE 800 MG TAB PO SCH ×3 (07:55→18:12)
--- NOTE | 2021-01-29 09:16 | Progress Note ---
Assessment and Plan Assessment and plan: (1) Chest pain Current Visit: Yes Status: Acute Qualifiers: Chest pain type: unspecified Qualified Code(s): R07.9 - Chest pain, unspecified Plan to address problem: Admit the patient to the [facility]. Put the patient on aspirin 81 mg p.o. daily. Lipitor 40 mg p.o. daily. Nitroglycerin as needed. Protonix 40 mg p.o. daily. We will do the serial cardiac enzyme. We also do echocardiogram. Will consult cardiology for further evaluation and treatment. Heparin 5000 units subcu every 8 hours for DVT prophylaxis Patient is a full code (2) Hyperkalemia Current Visit: Yes Status: Acute Plan to address problem: We will admit the patient to the IM. Patient already got insulin 10 units IV x1 dose D50 and calcium gluconate 1 g IV x1 dose. Will consult nephrology for emergent dialysis. Recheck CBC BMP in the morning. We will monitor the patient closely (3) Shortness of breath Current Visit: Yes Status: Acute Plan to address problem: Oxygen by nasal cannula 3 L/min. DuoNeb by nebulizer every 4 hours as needed. We will do the hemodialysis tonight. We will monitor the patient closely. (4) ESRD (end stage renal disease) on dialysis Current Visit: Yes Status: Chronic Plan to address problem: Patient has end-stage renal disease on hemodialysis Sunday and Sunday. We consulted nephrology for hemodialysis today because of hyperkalemia. Recheck BMP in the morning (5) ACS (acute coronary syndrome) Current Visit: No Status: Acute Plan to address problem: Admit the patient to the IM. Put the patient on aspirin 81 mg p.o. daily. Lipitor 40 mg p.o. daily. Nitroglycerin as needed. Protonix 40 mg p.o. daily. We will do the serial cardiac enzyme. We also do echocardiogram. Will consult cardiology for further evaluation and treatment. Heparin 5000 units subcu every 8 hours for DVT prophylaxis Patient is a full code (6) DVT prophylaxis Current Visit: Yes Status: Acute Plan to address problem: Heparin 5000 units subcu every 8 hours for DVT prophylaxis. Protonix 40 mg p.o. daily for GI prophylaxis patient is a full code 01/27/2021 -Patient is still complaining chest pain but getting better from admission condition. Patient denied any shortness of breath. -Patient was evaluated by cardiology and recommend no further cardiac work-up. Ordered CTA of the chest. -We will transfer her to the floor. -Patient had hyperkalemia and had dialysis yesterday. Potassium this morning was 4.9. Nephrology is following the patient. 01/28/2021 -Patient refused CTA of the chest yesterday -Patient's potassium this morning was 6.5, ordered stat EKG, IV calcium gluconate, Kayexalate and asked the nurse to notify the jewelry jobber is following. -Cardiology is following. 01/29/2021 -CTA was negative, cardiology said there is no acute AL. Patient still have hyperkalemia. -Hyperkalemia management as per nephrology. Disposition is per nephrology recommendation. -Patient refused medications. History Interval history: Patient was seen and evaluated this morning Patient is complaining left side chest pain No other complaints Hospitalist Physical - Physical exam Narrative exam: Not in cardiopulmonary distress. The patient appeared well nourished and normally developed. Vital signs as documented. Head exam is unremarkable. No scleral icterus . Neck is without jugular venous distension, thyromegaly, or carotid bruits. Lungs are clear to auscultation. Cardiac exam reveals regular rate and Rhythm. Abdominal exam reveals normal bowel sounds, nontender, no organomegaly. Extremities are nonedematous and both femoral and pedal pulses are normal. QUALITY REVIEWER: Alert and oriented 3. No focal weakness. - Constitutional Vitals: Temp Pulse Resp BP Pulse Ox 96.6 F L 74 16 110/69 100 01/29/21 07:10 01/29/21 07:10 01/29/21 07:10 01/29/21 07:10 01/29/21 07:10 General appearance: Present: no acute distress HEART Score - HEART Score EKG: Non-specific Age: < 45 Risk factors: > 3 risk factors or hx of atherosclerotic disease Troponin: Troponin T 0.025 ng/mL (0.00-0.029) 01/27/21 04:00 Troponin: < normal limit Results - Labs CBC & Chem 7: 01/27/21 00:00 01/29/21 06:42 Labs: Laboratory Last Values WBC 9.6 K/mm3 (4.5-11.0) 01/27/21 00:00 RBC 3.38 M/mm3 (3.65-5.03) L 01/27/21 00:00 Hgb 11.1 gm/dl (10.1-14.3) 01/27/21 00:00 Hct 34.0 % (30.3-42.9) 01/27/21 00:00 MCV 101 fl (79-97) H 01/27/21 00:00 MCH 33 pg (28-32) H 01/27/21 00:00 MCHC 33 % (30-34) 01/27/21 00:00 RDW 17.0 % (13.2-15.2) H 01/27/21 00:00 Plt Count 220 K/mm3 (140-440) 01/27/21 00:00 Lymph % (Auto) 27.9 % (13.4-35.0) 01/27/21 00:00 [place] % (Auto) 10.8 % (0.0-7.3) H 01/27/21 00:00 Eos % (Auto) 1.3 % (0.0-4.3) 01/27/21 00:00 Baso % (Auto) 0.9 % (0.0-1.8) 01/27/21 00:00 Lymph # (Auto) 2.7 K/mm3 (1.2-5.4) 01/27/21 00:00 [place] # (Auto) 1.0 K/mm3 (0.0-0.8) H 01/27/21 00:00 Eos # (Auto) 0.1 K/mm3 (0.0-0.4) 01/27/21 00:00 Baso # (Auto) 0.1 K/mm3 (0.0-0.1) 01/27/21 00:00 Seg Neutrophils % 59.1 % (40.0-70.0) 01/27/21 00:00 Seg Neutrophils # 5.7 K/mm3 (1.8-7.7) 01/27/21 00:00 PT 13.2 Sec. (12.2-14.9) 01/26/21 19:07 INR 1.02 (0.87-1.13) 01/26/21 19:07 APTT 29.9 Sec. (24.2-36.6) 01/26/21 19:07 Sodium 136 mmol/L (137-145) L 01/29/21 06:42 Potassium 5.7 mmol/L (3.6-5.0) H 01/29/21 06:42 Chloride 97.7 mmol/L (98-107) L 01/29/21 06:42 Carbon Dioxide 29 mmol/L (22-30) 01/29/21 06:42 Anion Gap 15 mmol/L 01/29/21 06:42 BUN 19 mg/dL (7-17) H 01/29/21 06:42 Creatinine 5.3 mg/dL (0.6-1.2) H 01/29/21 06:42 Estimated GFR 11 ml/min 01/29/21 06:42 BUN/Creatinine Ratio 4 % 01/29/21 06:42 Glucose 84 mg/dL (65-100) 01/29/21 06:42 POC Glucose 114 mg/dL (70-105) H 01/27/21 05:21 Calcium 8.1 mg/dL (8.4-10.2) L 01/29/21 06:42 Total Bilirubin 0.20 mg/dL (0.1-1.2) 01/26/21 19:07 Total Bilirubin TNR 01/26/21 19:07 AST 17 units/L (5-40) 01/26/21 19:07 AST TNR 01/26/21 19:07 ALT 9 units/L (7-56) 01/26/21 19:07 ALT TNR 01/26/21 19:07 Alkaline Phosphatase 94 units/L (35-129) 01/26/21 19:07 Alkaline Phosphatase TNR 01/26/21 19:07 Troponin T 0.025 ng/mL (0.00-0.029) 01/27/21 04:00 NT-Pro-B Natriuret Pep 1945 pg/mL (0-450) H 01/26/21 19:07 Total Protein 6.5 g/dL (6.3-8.2) 01/26/21 19:07 Total Protein TNR 01/26/21 19:07 Albumin 4.2 g/dL (3.9-5) 01/26/21 19:07 Albumin TNR 01/26/21 19:07 Albumin/Globulin Ratio 1.8 % 01/26/21 19:07 Albumin/Globulin Ratio TNR 01/26/21 19:07 HCG, Qual Negative (Negative) 01/26/21 19:07 Coronavirus (PCR) Negative (Negative) 01/27/21 Unknown Hepatitis A IgM Ab Non-reactive (NonReactive) 01/27/21 04:00 Hep Bs Antigen Non-reactive (Negative) 01/27/21 04:00 Hep B Core IgM Ab Non-reactive (NonReactive) 01/27/21 04:00 Hepatitis C Antibody Non-reactive (NonReactive) 01/27/21 04:00 Active Medications - Current Medications Current Medications: Generic Name Dose Route Start Last Admin Trade Name Freq PRN Reason Stop Dose Admin Acetaminophen 650 mg 01/26/21 21:58 Acetaminophen 325 Mg Tab PO Q6H PRN Pain, Mild (1-3) Al Hydrox/Mg Hydrox/Simethicone 30 ml 01/29/21 02:00 Alum-Mag Hydroxide-Simethicone [id number]/5ml Oral Liqd 30 Ml PO 01/29/21 02:01 ONCE ONE Aspirin 81 mg 01/26/21 22:00 01/28/21 09:21 Aspirin Ec 81 Mg Tab PO 81 mg DAILY ADIA Administration Atorvastatin Calcium 40 mg 01/26/21 22:00 01/28/21 21:47 Atorvastatin 40 Mg Tab PO 40 mg QHS ADIA Administration Carvedilol 25 mg 01/26/21 22:00 01/28/21 21:46 Carvedilol 25 Mg Tab PO 25 mg BID ADIA Administration Clopidogrel Bisulfate 75 mg 01/26/21 22:00 01/28/21 09:22 Clopidogrel 75 Mg Tab PO Not Given DAILY [facility] Diphenhydramine HCl 25 mg 01/27/21 21:19 01/27/21 21:25 Diphenhydramine 50 Mg/Ml Vial IV 25 mg Q6H PRN Administration Itching Docusate Sodium 100 mg 01/26/21 22:00 01/28/21 21:46 Docusate Sodium 100 Mg Cap PO 100 mg BID ADIA Administration Heparin Sodium (Porcine) 5,000 unit 01/26/21 22:30 01/29/21 05:29 Heparin 5,000 Unit/1 Ml Vial SUB-Q Not Given Q8HR ADIA Hydromorphone HCl 1 mg 01/26/21 22:25 01/29/21 07:54 Hydromorphone 1 Mg/1 Ml Inj IV 1 mg Q3H PRN Administration Pain , Severe (7-10) Hydroxychloroquine Sulfate 200 mg 01/27/21 10:00 01/28/21 09:22 Hydroxychloroquine 200 Mg Tab PO Not Given QDAY ADIA Sodium Chloride 100 mls @ 999 mls/hr 01/28/21 10:30 Nacl 0.9% IV JOSEPH PRN Hypotension Nitroglycerin 0.4 mg 01/26/21 21:58 Nitroglycerin 0.4 Mg Tab Subl SL Q5M PRN Chest Pain Ondansetron HCl 4 mg 01/27/21 06:30 Ondansetron 4 Mg/2 Ml Inj IV Q6H PRN Nausea And Vomiting Pantoprazole Sodium 40 mg 01/26/21 22:00 01/28/21 09:22 Pantoprazole 40 Mg Tab PO Not Given QDAY ADIA Prednisone 5 mg 01/28/21 10:00 01/28/21 10:16 Prednisone 5 Mg Tab PO 5 mg QDAY ADIA Administration Sevelamer Carbonate 800 mg 01/27/21 08:00 01/29/21 07:55 Sevelamer Carbonate 800 Mg Tab PO 800 mg TIDWM ADIA Administration Sodium Chloride 10 ml 01/26/21 21:58 01/29/21 04:01 Sodium Chloride 0.9% 10 Ml Flush Syringe IV 10 ml PRN PRN Administration LINE FLUSH Tramadol HCl 50 mg 01/26/21 21:58 Tramadol 50 Mg Tab PO Q6H PRN Pain, Moderate (4-6)
[2021-01-29] MEDS: carvediloL 25 MG TAB PO SCH ×2 (09:28→21:23)
[2021-01-29] MEDS: DOCUSATE SODIUM 100 MG CAP PO SCH ×2 (09:28→21:23)
[2021-01-29] MEDS: ASPIRIN EC 81 MG TAB PO SCH (09:28)
[2021-01-29] MEDS: predniSONE 5 MG TAB PO SCH (09:29)
[2021-01-29] MEDS: HYDROXYCHLOROQUINE 200 MG TAB PO SCH (09:31)
[2021-01-29] MEDS: CLOPIDOGREL 75 MG TAB PO SCH (09:32)
[2021-01-29] MEDS: PANTOPRAZOLE 40 MG TAB PO SCH (09:32)
--- NOTE | 2021-01-29 12:53 | Discharge Summary ---
Providers - Providers Date of Admission: 01/26/21 21:25 Date of discharge: 01/29/21 Attending physician: LUTHER LARSEN MD 01/26/21 Consult to Cardiac Rehabilitation [CONS] Routine Reason For Exam: Phase I 01/26/21 20:59 Consult to Physician [CONS] Routine Comment: Dr. Warner spoke with Dr. Pinto @ 2057 Consulting Provider: EDWIN PINTO Physician Instructions: Reason For Exam: e hd 01/26/21 21:58 Consult to Cardiology [CONS] Routine Consulting Provider: CASANDRA MCNALLY Reason For Exam: Chest pain Primary care physician: FISHING TOOL OPERATOR Hospitalization Reason for admission: Chest pain, hyperkalemia Condition: Stable Disposition: DC-01 TO HOME OR SELFCARE Final Discharge Diagnosis (Prints w/discharge instructions): Chest. Hyperkalemia Time spent for discharge: 31 minutes - Discharge Diagnoses (1) Chest pain Status: Acute Qualifiers: Chest pain type: unspecified Qualified Code(s): R07.9 - Chest pain, unspecified Comment: atypical (2) Hyperkalemia Status: Acute (3) ESRD (end stage renal disease) on dialysis Status: Chronic Core Measure Documentation - Palliative Care Palliative Care/ Comfort Measures: Not Applicable - Core Measures Any of the following diagnoses?: none Exam - Physical Exam Narrative exam: Not in cardiopulmonary distress. The patient appeared well nourished and normally developed. Vital signs as documented. Head exam is unremarkable. No scleral icterus . Neck is without jugular venous distension, thyromegaly, or carotid bruits. Lungs are clear to auscultation. Cardiac exam reveals regular rate and Rhythm. Abdominal exam reveals normal bowel sounds, nontender, no organomegaly. Extremities are nonedematous and both femoral and pedal pulses are normal. FINANCIAL CONSULTANT: Alert and oriented 3. No focal weakness. - Constitutional Vitals: Temp Pulse Resp BP Pulse Ox 96.6 F L 74 18 118/78 100 01/29/21 07:10 01/29/21 11:11 01/29/21 11:11 01/29/21 11:11 01/29/21 11:11 Plan Activity: no restrictions Weight Bearing Status: Full Weight Bearing Diet: renal Follow up with: PRIMARY MD AMBER [Primary Care Provider] - 7 Days
[2021-01-29] MEDS ORDERED: SODIUM CHLORIDE 0.9% 100 ML IV PRN (13:08)
--- NOTE | 2021-01-29 13:13 | Progress Note ---
Assessment and Plan Assessment * Severe Hyperkalemia * ESRD * Chest pain * Hypertension * SLE * Anemia secondary to ESRD * Secondary hyperparathyroidism Plan: * HD again today as K 5.7 * Recommend holding discharge for access evaluation on Sunday * Have consulted vascular surgery for fistulogram * Continue MWF and prn schedule * UF as tolerated with HD * Renal diet * Discussed with Dr Langley Subjective Date of service: 01/29/21 Principal diagnosis: Chest Pain Interval history: Patient has no complaint today Objective - Vital Signs Vital signs: Vital Signs - 12hr 01/29/21 01/29/21 01/29/21 04:34 07:10 08:00 Temperature 97.5 F L 96.6 F L Pulse Rate 78 74 68 Respiratory 18 16 Rate Blood Pressure 90/61 110/69 O2 Sat by Pulse 100 100 Oximetry 01/29/21 01/29/21 01/29/21 09:28 10:00 11:11 Temperature Pulse Rate 74 74 Respiratory 18 18 Rate Blood Pressure 110/69 118/78 O2 Sat by Pulse 96 100 Oximetry - General Appearance General appearance: well-developed, well-nourished EENT: ATNC Respiratory: Present: Clear to Ascultation Cardiology: regular, S1S2 Gastrointestinal: normal, no tenderness, no distended Integumentary: no rash, warm and dry Psychiatric: cooperative - Lab 01/27/21 00:00 01/29/21 06:42 Most recent lab results Calcium 8.1 mg/dL (8.4-10.2) L 01/29/21 06:42 Medications & Allergies - Medications Allergies/Adverse Reactions: Allergies acetaminophen [From Percocet] Allergy (Verified 01/26/21 18:45) Itching hydrocodone bitartrate [From Vicodin] Allergy (Verified 01/26/21 18:45) Itching morphine Allergy (Verified 01/26/21 18:45) Itching oxycodone Allergy (Verified 01/26/21 18:45) Itching tramadol Allergy (Verified 01/26/21 18:45) Hives metoclopramide HCl [From Reglan] Adverse Reaction (Verified 01/26/21 18:45) Unknown Home Medications: Home Medications Medication Instructions Recorded Confirmed Last Taken Type sevelamer HCL [Renagel] 800 mg PO TIDWM #30 tablet 06/24/15 02/29/20 1 Day Ago Rx ~07/18/17 Aspirin 81 mg PO DAILY 12/08/19 02/29/20 Unknown History Coreg 25 mg PO BID 12/08/19 02/29/20 Unknown History Pepcid 20 mg PO DAILY 12/08/19 02/29/20 Unknown History Plavix 75 mg PO DAILY 12/08/19 02/29/20 Unknown History Hydroxychloroquine [Plaquenil] 200 mg PO QDAY #30 tablet 03/02/20 Unknown Rx Sodium Polystyrene Sulfonate 60 gm PO NOW #240 ml 05/03/20 Unknown Rx Active Medications: Generic Name Dose Route Start Last Admin Trade Name Freq PRN Reason Stop Dose Admin Acetaminophen 650 mg 01/26/21 21:58 Acetaminophen 325 Mg Tab PO Q6H PRN Pain, Mild (1-3) Aspirin 81 mg 01/26/21 22:00 01/29/21 09:28 Aspirin Ec 81 Mg Tab PO 81 mg DAILY ADIA Administration Atorvastatin Calcium 40 mg 01/26/21 22:00 01/28/21 21:47 Atorvastatin 40 Mg Tab PO 40 mg QHS ADIA Administration Carvedilol 25 mg 01/26/21 22:00 01/29/21 09:28 Carvedilol 25 Mg Tab PO 25 mg BID ADIA Administration Clopidogrel Bisulfate 75 mg 01/26/21 22:00 01/29/21 09:32 Clopidogrel 75 Mg Tab PO Not Given DAILY [facility] Diphenhydramine HCl 25 mg 01/27/21 21:19 01/27/21 21:25 Diphenhydramine 50 Mg/Ml Vial IV 25 mg Q6H PRN Administration Itching Docusate Sodium 100 mg 01/26/21 22:00 01/29/21 09:28 Docusate Sodium 100 Mg Cap PO 100 mg BID [facility] Administration Heparin Sodium (Porcine) 5,000 unit 01/26/21 22:30 01/29/21 05:29 Heparin 5,000 Unit/1 Ml Vial SUB-Q Not Given Q8HR [facility] Hydromorphone HCl 1 mg 01/26/21 22:25 01/29/21 11:16 Hydromorphone 1 Mg/1 Ml Inj IV 1 mg Q3H PRN Administration Pain , Severe (7-10) Hydroxychloroquine Sulfate 200 mg 01/27/21 10:00 01/29/21 09:31 Hydroxychloroquine 200 Mg Tab PO Not Given QDAY ADIA Sodium Chloride 100 mls @ 999 mls/hr 01/28/21 10:30 Nacl 0.9% IV JOSEPH PRN Hypotension Nitroglycerin 0.4 mg 01/26/21 21:58 Nitroglycerin 0.4 Mg Tab Subl SL Q5M PRN Chest Pain Ondansetron HCl 4 mg 01/27/21 06:30 Ondansetron 4 Mg/2 Ml Inj IV Q6H PRN Nausea And Vomiting Pantoprazole Sodium 40 mg 01/26/21 22:00 01/29/21 09:32 Pantoprazole 40 Mg Tab PO Not Given QDAY ADIA Prednisone 5 mg 01/28/21 10:00 01/29/21 09:29 Prednisone 5 Mg Tab PO 5 mg QDAY ADIA Administration Sevelamer Carbonate 800 mg 01/27/21 08:00 01/29/21 12:39 Sevelamer Carbonate 800 Mg Tab PO Not Given TIDWM ADIA Sodium Chloride 10 ml 01/26/21 21:58 01/29/21 04:01 Sodium Chloride 0.9% 10 Ml Flush Syringe IV 10 ml PRN PRN Administration LINE FLUSH Tramadol HCl 50 mg 01/26/21 21:58 Tramadol 50 Mg Tab PO Q6H PRN Pain, Moderate (4-6)
[2021-01-30] MEDS: HYDROmorphone 1 MG/1 ML INJ IV PRN ×7 (00:56→23:40)
[2021-01-30] MEDS: HEPARIN 5,000 UNIT/1 ML VIAL SUB-Q SCH ×3 (05:13→21:19)
[2021-01-30] MEDS: SEVELAMER CARBONATE 800 MG TAB PO SCH ×3 (08:40→16:25)
--- NOTE | 2021-01-30 08:49 | Progress Note ---
Assessment and Plan Assessment and plan: (1) Chest pain Current Visit: Yes Status: Acute Qualifiers: Chest pain type: unspecified Qualified Code(s): R07.9 - Chest pain, unspecified Plan to address problem: Admit the patient to the [facility]. Put the patient on aspirin 81 mg p.o. daily. Lipitor 40 mg p.o. daily. Nitroglycerin as needed. Protonix 40 mg p.o. daily. We will do the serial cardiac enzyme. We also do echocardiogram. Will consult cardiology for further evaluation and treatment. Heparin 5000 units subcu every 8 hours for DVT prophylaxis Patient is a full code (2) Hyperkalemia Current Visit: Yes Status: Acute Plan to address problem: We will admit the patient to the IM. Patient already got insulin 10 units IV x1 dose D50 and calcium gluconate 1 g IV x1 dose. Will consult nephrology for emergent dialysis. Recheck CBC BMP in the morning. We will monitor the patient closely (3) Shortness of breath Current Visit: Yes Status: Acute Plan to address problem: Oxygen by nasal cannula 3 L/min. DuoNeb by nebulizer every 4 hours as needed. We will do the hemodialysis tonight. We will monitor the patient closely. (4) ESRD (end stage renal disease) on dialysis Current Visit: Yes Status: Chronic Plan to address problem: Patient has end-stage renal disease on hemodialysis Sunday and Sunday. We consulted nephrology for hemodialysis today because of hyperkalemia. Recheck BMP in the morning (5) ACS (acute coronary syndrome) Current Visit: No Status: Acute Plan to address problem: Admit the patient to the IM. Put the patient on aspirin 81 mg p.o. daily. Lipitor 40 mg p.o. daily. Nitroglycerin as needed. Protonix 40 mg p.o. daily. We will do the serial cardiac enzyme. We also do echocardiogram. Will consult cardiology for further evaluation and treatment. Heparin 5000 units subcu every 8 hours for DVT prophylaxis Patient is a full code (6) DVT prophylaxis Current Visit: Yes Status: Acute Plan to address problem: Heparin 5000 units subcu every 8 hours for DVT prophylaxis. Protonix 40 mg p.o. daily for GI prophylaxis patient is a full code 01/27/2021 -Patient is still complaining chest pain but getting better from admission condition. Patient denied any shortness of breath. -Patient was evaluated by cardiology and recommend no further cardiac work-up. Ordered CTA of the chest. -We will transfer her to the floor. -Patient had hyperkalemia and had dialysis yesterday. Potassium this morning was 4.9. Nephrology is following the patient. 01/28/2021 -Patient refused CTA of the chest yesterday -Patient's potassium this morning was 6.5, ordered stat EKG, IV calcium gluconate, Kayexalate and asked the nurse to notify the er rn is following. -Cardiology is following. 01/29/2021 -CTA was negative, cardiology said there is no acute NC. Patient still have hyperkalemia. -Hyperkalemia management as per nephrology. Disposition is per nephrology recommendation. -Patient refused medications. 01/30/2021 -Patient had hyperkalemia yesterday; dialysis was done. BMP from this morning is pending. -Nephrology is following and recommend to have fistulogram on Sunday. Vascular surgery consulted. - Patient Problems (1) Chest pain Current Visit: Yes Status: Acute Qualifiers: Chest pain type: unspecified Qualified Code(s): R07.9 - Chest pain, unspecified (2) Hyperkalemia Current Visit: Yes Status: Acute (3) ESRD (end stage renal disease) on dialysis Current Visit: Yes Status: Chronic History Interval history: Patient was seen and evaluated this morning Patient's chest pain resolved with Hospitalist Physical - Physical exam Narrative exam: Not in cardiopulmonary distress. The patient appeared well nourished and normally developed. Vital signs as documented. Head exam is unremarkable. No scleral icterus . Neck is without jugular venous distension, thyromegaly, or carotid bruits. Lungs are clear to auscultation. Cardiac exam reveals regular rate and Rhythm. Abdominal exam reveals normal bowel sounds, nontender, no organomegaly. Extremities are nonedematous and both femoral and pedal pulses are normal. [employer]: Alert and oriented 3. No focal weakness. - Constitutional Vitals: Temp Pulse Resp BP Pulse Ox 97.3 F L 80 17 100/63 97 01/30/21 07:25 01/30/21 07:25 01/30/21 07:25 01/30/21 07:25 01/30/21 07:25 General appearance: Present: no acute distress HEART Score - HEART Score EKG: Non-specific Age: < 45 Risk factors: > 3 risk factors or hx of atherosclerotic disease Troponin: Troponin T 0.025 ng/mL (0.00-0.029) 01/27/21 04:00 Troponin: < normal limit Results - Labs CBC & Chem 7: 01/27/21 00:00 01/29/21 06:42 Labs: Laboratory Last Values WBC 9.6 K/mm3 (4.5-11.0) 01/27/21 00:00 RBC 3.38 M/mm3 (3.65-5.03) L 01/27/21 00:00 Hgb 11.1 gm/dl (10.1-14.3) 01/27/21 00:00 Hct 34.0 % (30.3-42.9) 01/27/21 00:00 MCV 101 fl (79-97) H 01/27/21 00:00 MCH 33 pg (28-32) H 01/27/21 00:00 MCHC 33 % (30-34) 01/27/21 00:00 RDW 17.0 % (13.2-15.2) H 01/27/21 00:00 Plt Count 220 K/mm3 (140-440) 01/27/21 00:00 Lymph % (Auto) 27.9 % (13.4-35.0) 01/27/21 00:00 [place] % (Auto) 10.8 % (0.0-7.3) H 01/27/21 00:00 Eos % (Auto) 1.3 % (0.0-4.3) 01/27/21 00:00 Baso % (Auto) 0.9 % (0.0-1.8) 01/27/21 00:00 Lymph # (Auto) 2.7 K/mm3 (1.2-5.4) 01/27/21 00:00 [place] # (Auto) 1.0 K/mm3 (0.0-0.8) H 01/27/21 00:00 Eos # (Auto) 0.1 K/mm3 (0.0-0.4) 01/27/21 00:00 Baso # (Auto) 0.1 K/mm3 (0.0-0.1) 01/27/21 00:00 Seg Neutrophils % 59.1 % (40.0-70.0) 01/27/21 00:00 Seg Neutrophils # 5.7 K/mm3 (1.8-7.7) 01/27/21 00:00 PT 13.2 Sec. (12.2-14.9) 01/26/21 19:07 INR 1.02 (0.87-1.13) 01/26/21 19:07 APTT 29.9 Sec. (24.2-36.6) 01/26/21 19:07 Sodium 136 mmol/L (137-145) L 01/29/21 06:42 Potassium 5.7 mmol/L (3.6-5.0) H 01/29/21 06:42 Chloride 97.7 mmol/L (98-107) L 01/29/21 06:42 Carbon Dioxide 29 mmol/L (22-30) 01/29/21 06:42 Anion Gap 15 mmol/L 01/29/21 06:42 BUN 19 mg/dL (7-17) H 01/29/21 06:42 Creatinine 5.3 mg/dL (0.6-1.2) H 01/29/21 06:42 Estimated GFR 11 ml/min 01/29/21 06:42 BUN/Creatinine Ratio 4 % 01/29/21 06:42 Glucose 84 mg/dL (65-100) 01/29/21 06:42 POC Glucose 114 mg/dL (70-105) H 01/27/21 05:21 Calcium 8.1 mg/dL (8.4-10.2) L 01/29/21 06:42 Total Bilirubin 0.20 mg/dL (0.1-1.2) 01/26/21 19:07 Total Bilirubin TNR 01/26/21 19:07 AST 17 units/L (5-40) 01/26/21 19:07 AST TNR 01/26/21 19:07 ALT 9 units/L (7-56) 01/26/21 19:07 ALT TNR 01/26/21 19:07 Alkaline Phosphatase 94 units/L (35-129) 01/26/21 19:07 Alkaline Phosphatase TNR 01/26/21 19:07 Troponin T 0.025 ng/mL (0.00-0.029) 01/27/21 04:00 NT-Pro-B Natriuret Pep 1945 pg/mL (0-450) H 01/26/21 19:07 Total Protein 6.5 g/dL (6.3-8.2) 01/26/21 19:07 Total Protein TNR 01/26/21 19:07 Albumin 4.2 g/dL (3.9-5) 01/26/21 19:07 Albumin TNR 01/26/21 19:07 Albumin/Globulin Ratio 1.8 % 01/26/21 19:07 Albumin/Globulin Ratio TNR 01/26/21 19:07 HCG, Qual Negative (Negative) 01/26/21 19:07 Coronavirus (PCR) Negative (Negative) 01/27/21 Unknown Hepatitis A IgM Ab Non-reactive (NonReactive) 01/27/21 04:00 Hep Bs Antigen Non-reactive (Negative) 01/27/21 04:00 Hep B Core IgM Ab Non-reactive (NonReactive) 01/27/21 04:00 Hepatitis C Antibody Non-reactive (NonReactive) 01/27/21 04:00 Active Medications - Current Medications Current Medications: Generic Name Dose Route Start Last Admin Trade Name Freq PRN Reason Stop Dose Admin Acetaminophen 650 mg 01/26/21 21:58 Acetaminophen 325 Mg Tab PO Q6H PRN Pain, Mild (1-3) Aspirin 81 mg 01/26/21 22:00 01/29/21 09:28 Aspirin Ec 81 Mg Tab PO 81 mg DAILY ADIA Administration Atorvastatin Calcium 40 mg 01/26/21 22:00 01/29/21 21:22 Atorvastatin 40 Mg Tab PO 40 mg QHS ADIA Administration Carvedilol 25 mg 01/26/21 22:00 01/29/21 21:23 Carvedilol 25 Mg Tab PO 25 mg BID ADIA Administration Clopidogrel Bisulfate 75 mg 01/26/21 22:00 01/29/21 09:32 Clopidogrel 75 Mg Tab PO Not Given DAILY ADIA Diphenhydramine HCl 25 mg 01/27/21 21:19 01/27/21 21:25 Diphenhydramine 50 Mg/Ml Vial IV 25 mg Q6H PRN Administration Itching Docusate Sodium 100 mg 01/26/21 22:00 01/29/21 21:23 Docusate Sodium 100 Mg Cap PO 100 mg BID ADIA Administration Heparin Sodium (Porcine) 5,000 unit 01/26/21 22:30 01/30/21 05:13 Heparin 5,000 Unit/1 Ml Vial SUB-Q Not Given Q8HR ADIA Hydromorphone HCl 1 mg 01/26/21 22:25 01/30/21 08:39 Hydromorphone 1 Mg/1 Ml Inj IV 1 mg Q3H PRN Administration Pain , Severe (7-10) Hydroxychloroquine Sulfate 200 mg 01/27/21 10:00 01/29/21 09:31 Hydroxychloroquine 200 Mg Tab PO Not Given QDAY ADIA Sodium Chloride 100 mls @ 999 mls/hr 01/28/21 10:30 Nacl 0.9% IV JOSEPH PRN Hypotension Nitroglycerin 0.4 mg 01/26/21 21:58 Nitroglycerin 0.4 Mg Tab Subl SL Q5M PRN Chest Pain Ondansetron HCl 4 mg 01/27/21 06:30 Ondansetron 4 Mg/2 Ml Inj IV Q6H PRN Nausea And Vomiting Pantoprazole Sodium 40 mg 01/26/21 22:00 01/29/21 09:32 Pantoprazole 40 Mg Tab PO Not Given QDAY ADIA Prednisone 5 mg 01/28/21 10:00 01/29/21 09:29 Prednisone 5 Mg Tab PO 5 mg QDAY ADIA Administration Sevelamer Carbonate 800 mg 01/27/21 08:00 01/30/21 08:40 Sevelamer Carbonate 800 Mg Tab PO 800 mg TIDWM ADIA Administration Sodium Chloride 10 ml 01/26/21 21:58 01/30/21 05:02 Sodium Chloride 0.9% 10 Ml Flush Syringe IV 10 ml PRN PRN Administration LINE FLUSH Tramadol HCl 50 mg 01/26/21 21:58 Tramadol 50 Mg Tab PO Q6H PRN Pain, Moderate (4-6)
[2021-01-30] MEDS: ASPIRIN EC 81 MG TAB PO SCH (09:03)
[2021-01-30] MEDS: carvediloL 25 MG TAB PO SCH ×3 (09:03→21:20)
[2021-01-30] MEDS: predniSONE 5 MG TAB PO SCH (09:04)
--- NOTE | 2021-01-30 09:36 | Consultation ---
History of Present Illness - Reason for Consult Consult date: 01/30/21 Malfunctioning AV fistula - History of Present Illness Patient with a history of end-stage renal disease on hemodialysis. She has had multiple accesses placed in both arms. At present, the patient dialyzes from a right arm AV graft. A palpable thrill was present throughout the graft. The patient however has mild right arm swelling and persistent hyperkalemia despite adequate sessions of dialysis. Additionally, her pressures have been elevated during dialysis. The patient has some anxiety as well. Past History Past Medical History: dialysis, ESRD, renal failure, other (See HPI) Past Surgical History: CABG Medications and Allergies Allergies Allergy/AdvReac Type Severity Reaction Status Date / Time acetaminophen [From Percocet] Allergy Itching Verified 01/26/21 18:45 hydrocodone bitartrate Allergy Itching Verified 01/26/21 18:45 [From Vicodin] morphine Allergy Itching Verified 01/26/21 18:45 oxycodone Allergy Itching Verified 01/26/21 18:45 tramadol Allergy Hives Verified 01/26/21 18:45 metoclopramide HCl AdvReac Unknown Verified 01/26/21 18:45 [From Reglan] Home Medications Medication Instructions Recorded Confirmed Last Taken Type sevelamer HCL [Renagel] 800 mg PO TIDWM #30 tablet 06/24/15 02/29/20 1 Day Ago Rx ~07/18/17 Aspirin 81 mg PO DAILY 12/08/19 02/29/20 Unknown History Coreg 25 mg PO BID 12/08/19 02/29/20 Unknown History Pepcid 20 mg PO DAILY 12/08/19 02/29/20 Unknown History Plavix 75 mg PO DAILY 12/08/19 02/29/20 Unknown History Hydroxychloroquine [Plaquenil] 200 mg PO QDAY #30 tablet 03/02/20 Unknown Rx Sodium Polystyrene Sulfonate 60 gm PO NOW #240 ml 05/03/20 Unknown Rx Active Meds: Active Medications Acetaminophen (Acetaminophen 325 Mg Tab) 650 mg PO Q6H PRN PRN Reason: Pain, Mild (1-3) Aspirin (Aspirin Ec 81 Mg Tab) 81 mg PO DAILY [facility] Last Admin: 01/30/21 09:03 Dose: 81 mg Documented by: Atorvastatin Calcium (Atorvastatin 40 Mg Tab) 40 mg PO QHS [facility] Last Admin: 01/29/21 21:22 Dose: 40 mg Documented by: Carvedilol (Carvedilol 25 Mg Tab) 25 mg PO BID [facility] Last Admin: 01/30/21 09:03 Dose: 25 mg Documented by: Clopidogrel Bisulfate (Clopidogrel 75 Mg Tab) 75 mg PO DAILY [facility] Last Admin: 01/29/21 09:32 Dose: Not Given Documented by: Diphenhydramine HCl (Diphenhydramine 50 Mg/Ml Vial) 25 mg IV Q6H PRN PRN Reason: Itching Last Admin: 01/27/21 21:25 Dose: 25 mg Documented by: Docusate Sodium (Docusate Sodium 100 Mg Cap) 100 mg PO BID [facility] Last Admin: 01/29/21 21:23 Dose: 100 mg Documented by: Heparin Sodium (Porcine) (Heparin 5,000 Unit/1 Ml Vial) 5,000 unit SUB-Q Q8HR [facility] Last Admin: 01/30/21 05:13 Dose: Not Given Documented by: Hydromorphone HCl (Hydromorphone 1 Mg/1 Ml Inj) 1 mg IV Q3H PRN PRN Reason: Pain , Severe (7-10) Last Admin: 01/30/21 08:39 Dose: 1 mg Documented by: Hydroxychloroquine Sulfate (Hydroxychloroquine 200 Mg Tab) 200 mg PO QDAY [facility] Last Admin: 01/29/21 09:31 Dose: Not Given Documented by: Sodium Chloride (Nacl 0.9%) 100 mls @ 999 mls/hr IV JOSEPH PRN PRN Reason: Hypotension Nitroglycerin (Nitroglycerin 0.4 Mg Tab Subl) 0.4 mg SL Q5M PRN PRN Reason: Chest Pain Ondansetron HCl (Ondansetron 4 Mg/2 Ml Inj) 4 mg IV Q6H PRN PRN Reason: Nausea And Vomiting Pantoprazole Sodium (Pantoprazole 40 Mg Tab) 40 mg PO QDAY [facility] Last Admin: 01/29/21 09:32 Dose: Not Given Documented by: Prednisone (Prednisone 5 Mg Tab) 5 mg PO QDAY [facility] Last Admin: 01/30/21 09:04 Dose: 5 mg Documented by: Sevelamer Carbonate (Sevelamer Carbonate 800 Mg Tab) 800 mg PO TIDWM [facility] Last Admin: 01/30/21 08:40 Dose: 800 mg Documented by: Sodium Chloride (Sodium Chloride 0.9% 10 Ml Flush Syringe) 10 ml IV PRN PRN PRN Reason: LINE FLUSH Last Admin: 01/30/21 09:04 Dose: 10 ml Documented by: Tramadol HCl (Tramadol 50 Mg Tab) 50 mg PO Q6H PRN PRN Reason: Pain, Moderate (4-6) Review of Systems All systems: negative Exam - Constitutional Vitals: Temp Pulse Resp BP Pulse Ox 97.3 F L 80 17 111/67 97 01/30/21 07:25 01/30/21 07:25 01/30/21 07:25 01/30/21 09:03 01/30/21 07:25 General appearance: Present: no acute distress - EENT Eyes: Present: EOM intact ENT: hearing intact - Neck Neck: Present: supple, normal ROM - Respiratory Respiratory effort: normal - Extremities Extremities: abnormal (Mild right arm swelling) - Abdominal General gastrointestinal: Present: deferred Female genitourinary: Present: deferred - Rectal Rectal Exam: deferred - Psychiatric Psychiatric: appropriate mood/affect, cooperative Results - Labs CBC & Chem 7: 01/27/21 00:00 01/29/21 06:42 Assessment and Plan The patient will need to be scheduled for a right arm fistulogram with likely venoplasty. Given the patient's anxiety, the patient is requesting evaluation with vascular ultrasound prior to her venoplasty. This will be performed first thing in the morning.
[2021-01-30] MEDS: PANTOPRAZOLE 40 MG TAB PO SCH (09:46)
[2021-01-30] MEDS: HYDROXYCHLOROQUINE 200 MG TAB PO SCH (09:46)
[2021-01-30] MEDS: CLOPIDOGREL 75 MG TAB PO SCH (09:46)
[2021-01-30] MEDS: DOCUSATE SODIUM 100 MG CAP PO SCH ×2 (09:46→21:19)
[2021-01-30 10:59] LABS: Calcium 8.1 mg/dL (8.4-10.2)
--- NOTE | 2021-01-30 15:12 | Progress Note ---
Assessment and Plan Assessment * Severe Hyperkalemia * ESRD * Chest pain * Hypertension * SLE * Anemia secondary to ESRD * Secondary hyperparathyroidism Plan: * Patient is s/p HD on Sunday and Sunday due to refractory hyperkalemia * No acute need for HD today * Fistulogram planned for tomorrow * Continue MWF and prn schedule * UF as tolerated with HD * Renal diet Subjective Date of service: 01/30/21 Principal diagnosis: Chest Pain Interval history: Patient has no complaints today Objective - Vital Signs Vital signs: Vital Signs - 12hr 01/30/21 01/30/21 01/30/21 04:49 07:25 08:43 Temperature 98.1 F 97.3 F L Pulse Rate 76 80 Respiratory 18 17 18 Rate Respiratory Rate [Chest] Blood Pressure 122/77 100/63 111/69 O2 Sat by Pulse 100 97 Oximetry 01/30/21 01/30/21 01/30/21 09:03 10:00 11:36 Temperature 97.9 F Pulse Rate 81 Respiratory 18 17 Rate Respiratory 18 Rate [Chest] Blood Pressure 111/67 100/64 O2 Sat by Pulse 99 98 Oximetry - General Appearance General appearance: well-developed, well-nourished EENT: ATNC Respiratory: Present: Clear to Ascultation Cardiology: regular, S1S2 Gastrointestinal: normal, no tenderness, no distended Psychiatric: cooperative - Lab 01/27/21 00:00 01/30/21 10:01 Most recent lab results Calcium 8.1 mg/dL (8.4-10.2) L 01/30/21 10:01 Medications & Allergies - Medications Allergies/Adverse Reactions: Allergies acetaminophen [From Percocet] Allergy (Verified 01/26/21 18:45) Itching hydrocodone bitartrate [From Vicodin] Allergy (Verified 01/26/21 18:45) Itching morphine Allergy (Verified 01/26/21 18:45) Itching oxycodone Allergy (Verified 01/26/21 18:45) Itching tramadol Allergy (Verified 01/26/21 18:45) Hives metoclopramide HCl [From Reglan] Adverse Reaction (Verified 01/26/21 18:45) Unknown Home Medications: Home Medications Medication Instructions Recorded Confirmed Last Taken Type sevelamer HCL [Renagel] 800 mg PO TIDWM #30 tablet 06/24/15 02/29/20 1 Day Ago Rx ~07/18/17 Aspirin 81 mg PO DAILY 12/08/19 02/29/20 Unknown History Coreg 25 mg PO BID 12/08/19 02/29/20 Unknown History Pepcid 20 mg PO DAILY 12/08/19 02/29/20 Unknown History Plavix 75 mg PO DAILY 12/08/19 02/29/20 Unknown History Hydroxychloroquine [Plaquenil] 200 mg PO QDAY #30 tablet 03/02/20 Unknown Rx Sodium Polystyrene Sulfonate 60 gm PO NOW #240 ml 05/03/20 Unknown Rx Active Medications: Generic Name Dose Route Start Last Admin Trade Name Freq PRN Reason Stop Dose Admin Acetaminophen 650 mg 01/26/21 21:58 Acetaminophen 325 Mg Tab PO Q6H PRN Pain, Mild (1-3) Aspirin 81 mg 01/26/21 22:00 01/30/21 09:03 Aspirin Ec 81 Mg Tab PO 81 mg DAILY ADIA Administration Atorvastatin Calcium 40 mg 01/26/21 22:00 01/29/21 21:22 Atorvastatin 40 Mg Tab PO 40 mg QHS ADIA Administration Carvedilol 25 mg 01/26/21 22:00 01/30/21 09:03 Carvedilol 25 Mg Tab PO 25 mg BID ADIA Administration Clopidogrel Bisulfate 75 mg 01/26/21 22:00 01/30/21 09:46 Clopidogrel 75 Mg Tab PO Not Given DAILY ADIA Diphenhydramine HCl 25 mg 01/27/21 21:19 01/27/21 21:25 Diphenhydramine 50 Mg/Ml Vial IV 25 mg Q6H PRN Administration Itching Docusate Sodium 100 mg 01/26/21 22:00 01/30/21 09:46 Docusate Sodium 100 Mg Cap PO Not Given BID [facility] Heparin Sodium (Porcine) 5,000 unit 01/26/21 22:30 01/30/21 13:35 Heparin 5,000 Unit/1 Ml Vial SUB-Q Not Given Q8HR [facility] Hydromorphone HCl 1 mg 01/26/21 22:25 01/30/21 12:50 Hydromorphone 1 Mg/1 Ml Inj IV 1 mg Q3H PRN Administration Pain , Severe (7-10) Hydroxychloroquine Sulfate 200 mg 01/27/21 10:00 01/30/21 09:46 Hydroxychloroquine 200 Mg Tab PO Not Given QDAY ADIA Sodium Chloride 100 mls @ 999 mls/hr 01/28/21 10:30 Nacl 0.9% IV JOSEPH PRN Hypotension Nitroglycerin 0.4 mg 01/26/21 21:58 Nitroglycerin 0.4 Mg Tab Subl SL Q5M PRN Chest Pain Ondansetron HCl 4 mg 01/27/21 06:30 Ondansetron 4 Mg/2 Ml Inj IV Q6H PRN Nausea And Vomiting Pantoprazole Sodium 40 mg 01/26/21 22:00 01/30/21 09:46 Pantoprazole 40 Mg Tab PO Not Given QDAY ADIA Prednisone 5 mg 01/28/21 10:00 01/30/21 09:04 Prednisone 5 Mg Tab PO 5 mg QDAY ADIA Administration Sevelamer Carbonate 800 mg 01/27/21 08:00 01/30/21 12:50 Sevelamer Carbonate 800 Mg Tab PO 800 mg TIDWM ADIA Administration Sodium Chloride 10 ml 01/26/21 21:58 01/30/21 09:04 Sodium Chloride 0.9% 10 Ml Flush Syringe IV 10 ml PRN PRN Administration LINE FLUSH Tramadol HCl 50 mg 01/26/21 21:58 Tramadol 50 Mg Tab PO Q6H PRN Pain, Moderate (4-6)
--- NOTE | 2021-01-30 15:35 | Vascular Lab Report ---
DOPPLER ULTRASOUND UPPER EXTREMITY VASCULAR, RIGHT INDICATION / CLINICAL INFORMATION: Right arm elevated venous pressures . Evaluate dialysis graft. TECHNIQUE: Grayscale, color and spectral Doppler imaging of the venous system of the upper extremity was performed. COMPARISON: None available. FINDINGS: AV GRAFT - Location: RIGHT Greater than 50% stenosis at the right brachial artery-axillary vein AV graft at the venous anastomos is site. Velocities: Inflow: 317 cm/s Arterial anastomosis: 652 cm/s Proximal graft 539 cm/s Mid graft 136 cm/s Distal graft 151 cm/s Venous anastomosis: 628 cm/s Outflow: 260 cm/s IMPRESSION: 1. Patent AV graft with elevated velocities with stenosis at the right brachial artery graft site. Signer Name: Newton Moreno MD Signed: 01/30/2021 3:31 PM Workstation Name: [id number]
[2021-01-30] MEDS: diphenhydrAMINE 50 MG/ML VIAL IV PRN (20:38)
[2021-01-31] MEDS: HYDROmorphone 1 MG/1 ML INJ IV PRN ×3 (02:49→15:03)
[2021-01-31] MEDS: HEPARIN 5,000 UNIT/1 ML VIAL SUB-Q SCH ×2 (04:59→13:24)
[2021-01-31] MEDS: SEVELAMER CARBONATE 800 MG TAB PO SCH ×2 (07:57→12:52)
--- NOTE | 2021-01-31 09:20 | Discharge Summary ---
Providers - Providers Date of Admission: 01/26/21 21:25 Attending physician: TERESA COLON MD 01/26/21 Consult to Cardiac Rehabilitation [CONS] Routine Reason For Exam: Phase I 01/26/21 20:59 Consult to Physician [CONS] Routine Comment: Dr. Warner spoke with Dr. Pinto @ 2057 Consulting Provider: EDWIN PINTO Physician Instructions: Reason For Exam: e hd 01/26/21 21:58 Consult to Cardiology [CONS] Routine Consulting Provider: CASANDRA MCNALLY Reason For Exam: Chest pain 01/29/21 13:11 Consult to Physician [CONS] Routine Comment: Consulting Provider: JAMES HU Physician Instructions: Reason For Exam: Fistulogram Primary care physician: SHINGLE WEAVER Hospitalization Reason for admission: chest pain Condition: Stable Hospital course: 35-year-old female with history of end-stage renal disease on hemodialysis Sunday and Sunday was brought to emergency room with complaints of chest pain. Patient also complaining of nausea and vomiting. Patient states she is having mild shortness of breath. Patient denies diaphoresis. Patient complaining of chest pain is radiating to her left upper extremity, chest pain is a 10 out of 10 since last night patient chest pain is better with rest and worse with exertion. Patient states that her shortness of breath is better with rest and worse with exertion. Patient states she has not missed dialysis. In the ER initial cardiac enzyme is negative but patient potassium is 7.7 BUN 52 and creatinine 9.8. Also proBNP is 1945. Patient got insulin D50 calcium gluconate. Nephrology is emergently consulted for dialysis tonight. Treatment plan is as noted below. * Severe Hyperkalemia * ESRD * Chest pain * Hypertension * SLE * Anemia secondary to ESRD * Secondary hyperparathyroidism Per per [employer]. Telemetry Reviewed: SR rate 77. No events overnight. Pt is alert and refused to see cardiology on rounds stating she was "washing up" and "Do not open the door." Pt sounds agitated. Also refused medications this am, refused IV and refused CT scan. Cardiology consulted for chest pain x 1 day. Currently chest pain is resolved. AMI has been ruled out. CXR is negative for acute findings. Covid 19 PCR is negative. Echo (01/26/21) reviewed: EF 55-60%. Mild TR. Mild LVH with impaired LV relaxation. 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 Continue home cardiac regimen. Continue electrolyte optimization via HD. 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 However pt is refusing IV placement and/or scan. Nothing further to add from cardiac perspective at this time. Will follow on as needed basis. Recommend pt f/u with either [facility] or in our office with Dr Mcnally within 1-2 weeks of discharge. (1) Chest pain possible costochondirtis, Current Visit: Yes Status: Acute Qualifiers: Chest pain type: unspecified Qualified Code(s): R07.9 - Chest pain, unspecified Plan to address problem: Admit the patient to the IMCU. Put the patient on aspirin 81 mg p.o. daily. Lipitor 40 mg p.o. daily. Nitroglycerin as needed. Protonix 40 mg p.o. daily. We will do the serial cardiac enzyme. We also do echocardiogram. Will consult cardiology for further evaluation and treatment. Heparin 5000 units subcu every 8 hours for DVT prophylaxis Patient is a full code (2) Hyperkalemia Current Visit: Yes Status: Acute Plan to address problem: We will admit the patient to the IMCU. Patient already got insulin 10 units IV x1 dose D50 and calcium gluconate 1 g IV x1 dose. Will consult nephrology for emergent dialysis. Recheck CBC BMP in the morning. We will monitor the patient closely (3) Acute Hypoxic Respiratory failure- POA Current Visit: Yes Status: Acute Plan to address problem: Oxygen by nasal cannula 3 L/min. DuoNeb by nebulizer every 4 hours as needed. We will do the hemodialysis tonight. We will monitor the patient closely. (4) ESRD (end stage renal disease) on dialysis Current Visit: Yes Status: Chronic Plan to address problem: Patient has end-stage renal disease on hemodialysis Sunday and Sunday. We consulted nephrology for hemodialysis today because of hyperkalemia. Recheck BMP in the morning (5) ACS (acute coronary syndrome) Current Visit: No Status: Acute Plan to address problem: Admit the patient to the IMCU. Put the patient on aspirin 81 mg p.o. daily. Li pitor 40 mg p.o. daily. Nitroglycerin as needed. Protonix 40 mg p.o. daily. We will do the serial cardiac enzyme. We also do echocardiogram. Will consult cardiology for further evaluation and treatment. Heparin 5000 units subcu every 8 hours for DVT prophylaxis Disposition: DC-01 TO HOME OR SELFCARE Final Discharge Diagnosis (Prints w/discharge instructions): Chest pain possible costochondirtis, Time spent for discharge: 35 MINS Core Measure Documentation - Palliative Care Palliative Care/ Comfort Measures: Not Applicable - Core Measures Any of the following diagnoses?: none Exam - Physical Exam Narrative exam: VITAL SIGNS: Reviewed. GENERAL: The patient appears normally developed, Vital signs as documented. HEAD: No signs of head trauma. EYES: Pupils are equal. Extraocular motions intact. EARS: Hearing grossly intact. MOUTH: Oropharynx is normal. NECK: No adenopathy, no JVD. CHEST: Chest with clear breath sounds bilaterally. No wheezes, rales, or rhonchi. CARDIAC: Regular rate and rhythm. S1 and S2, without murmurs, gallops, or rubs. VASCULAR: No Edema. Peripheral pulses normal and equal in all extremities. ABDOMEN: Soft, non tender and non distended. No rebound or guarding, and no masses palpated. Bowel Sounds normal. MUSCULOSKELETAL: Good range of motion of all major joints. Extremities without clubbing, cyanosis or edema. NEUROLOGIC EXAM: Alert and oriented x 3 No focal sensory or strength deficits. Speech normal. Follows commands. PSYCHIATRIC: Mood normal. SKIN: detail exam as documented in skin assessment - Constitutional Vitals: Temp Pulse Resp BP Pulse Ox 97.6 F 75 18 100/67 100 01/31/21 08:18 01/31/21 08:18 01/31/21 08:18 01/31/21 08:18 01/31/21 08:18 Plan Activity: advance as tolerated, fall precautions Diet: renal Special Instructions: record daily weights, record daily BP diary, record blood sugar diary, physical therapy, occupational therapy Follow up with: PRIMARY MD AMBER [Primary Care Provider] - 7 Days CASANDRA MCNALLY MD [Staff Physician] - 7 Days FRAN AMANDA MD [Staff Physician] - 7 Days Forms: Work/School Release Form Prescriptions: AtorvaSTATin [Lipitor] 40 mg PO QHS #30 tablet
--- NOTE | 2021-01-31 10:05 | Progress Note ---
Subjective Principal diagnosis: Chest Pain Objective - Vital Signs Vital signs: Vital Signs - 12hr 01/30/21 01/31/21 01/31/21 23:32 04:00 04:24 Temperature 98.4 F 98.0 F Pulse Rate 76 78 83 Respiratory 16 16 Rate Blood Pressure 113/74 95/54 O2 Sat by Pulse 100 97 Oximetry 01/31/21 08:18 Temperature 97.6 F Pulse Rate 75 Respiratory 18 Rate Blood Pressure 100/67 O2 Sat by Pulse 100 Oximetry - Lab 01/27/21 00:00 01/31/21 05:03 Most recent lab results Calcium 8.0 mg/dL (8.4-10.2) L 01/31/21 05:03 Medications & Allergies - Medications Allergies/Adverse Reactions: Allergies acetaminophen [From Percocet] Allergy (Verified 01/26/21 18:45) Itching hydrocodone bitartrate [From Vicodin] Allergy (Verified 01/26/21 18:45) Itching morphine Allergy (Verified 01/26/21 18:45) Itching oxycodone Allergy (Verified 01/26/21 18:45) Itching tramadol Allergy (Verified 01/26/21 18:45) Hives metoclopramide HCl [From Reglan] Adverse Reaction (Verified 01/26/21 18:45) Unknown Home Medications: Home Medications Medication Instructions Recorded Confirmed Last Taken Type sevelamer HCL [Renagel] 800 mg PO TIDWM #30 tablet 06/24/15 02/29/20 1 Day Ago Rx ~07/18/17 Aspirin 81 mg PO DAILY 12/08/19 02/29/20 Unknown History Coreg 25 mg PO BID 12/08/19 02/29/20 Unknown History Pepcid 20 mg PO DAILY 12/08/19 02/29/20 Unknown History Plavix 75 mg PO DAILY 12/08/19 02/29/20 Unknown History Hydroxychloroquine [Plaquenil] 200 mg PO QDAY #30 tablet 03/02/20 Unknown Rx Sodium Polystyrene Sulfonate 60 gm PO NOW #240 ml 05/03/20 Unknown Rx AtorvaSTATin [Lipitor] 40 mg PO QHS #30 tablet 01/31/21 Unknown Rx Active Medications: Generic Name Dose Route Start Last Admin Trade Name Freq PRN Reason Stop Dose Admin Acetaminophen 650 mg 01/26/21 21:58 Acetaminophen 325 Mg Tab PO Q6H PRN Pain, Mild (1-3) Aspirin 81 mg 01/26/21 22:00 01/30/21 09:03 Aspirin Ec 81 Mg Tab PO 81 mg DAILY [facility] Administration Atorvastatin Calcium 40 mg 01/26/21 22:00 01/30/21 21:21 Atorvastatin 40 Mg Tab PO Not Given QHS [facility] Carvedilol 25 mg 01/26/21 22:00 01/30/21 21:20 Carvedilol 25 Mg Tab PO Not Given BID [facility] Clopidogrel Bisulfate 75 mg 01/26/21 22:00 01/30/21 09:46 Clopidogrel 75 Mg Tab PO Not Given DAILY [facility] Diphenhydramine HCl 25 mg 01/27/21 21:19 01/30/21 20:38 Diphenhydramine 50 Mg/Ml Vial IV 25 mg Q6H PRN Administration Itching Docusate Sodium 100 mg 01/26/21 22:00 01/30/21 21:19 Docusate Sodium 100 Mg Cap PO Not Given BID [facility] Heparin Sodium (Porcine) 5,000 unit 01/26/21 22:30 01/31/21 04:59 Heparin 5,000 Unit/1 Ml Vial SUB-Q Not Given Q8HR [facility] Hydromorphone HCl 1 mg 01/26/21 22:25 01/31/21 06:11 Hydromorphone 1 Mg/1 Ml Inj IV 1 mg Q3H PRN Administration Pain , Severe (7-10) Hydroxychloroquine Sulfate 200 mg 01/27/21 10:00 01/30/21 09:46 Hydroxychloroquine 200 Mg Tab PO Not Given QDAY [facility] Sodium Chloride 100 mls @ 999 mls/hr 01/28/21 10:30 Nacl 0.9% IV JOSEPH PRN Hypotension Nitroglycerin 0.4 mg 01/26/21 21:58 Nitroglycerin 0.4 Mg Tab Subl SL Q5M PRN Chest Pain Ondansetron HCl 4 mg 01/27/21 06:30 Ondansetron 4 Mg/2 Ml Inj IV Q6H PRN Nausea And Vomiting Pantoprazole Sodium 40 mg 01/26/21 22:00 01/30/21 09:46 Pantoprazole 40 Mg Tab PO Not Given QDAY [facility] Prednisone 5 mg 01/28/21 10:00 01/30/21 09:04 Prednisone 5 Mg Tab PO 5 mg QDAY [facility] Administration Sevelamer Carbonate 800 mg 01/27/21 08:00 01/31/21 07:57 Sevelamer Carbonate 800 Mg Tab PO Not Given TIDWM [facility] Sodium Chloride 10 ml 01/26/21 21:58 01/30/21 19:46 Sodium Chloride 0.9% 10 Ml Flush Syringe IV 10 ml PRN PRN Administration LINE FLUSH Tramadol HCl 50 mg 01/26/21 21:58 Tramadol 50 Mg Tab PO Q6H PRN Pain, Moderate (4-6)
[2021-01-31] MEDS ORDERED: HEPARIN/NS 5000 UNIT/500ML 1,000 ML IR ONE (10:15)
[2021-01-31] MEDS ORDERED: LIDOCAINE (2%) 20 MG/1 ML VIAL 20 ML MDV INFILTRATI ONE (10:16)
[2021-01-31] MEDS ORDERED: HEPARIN 10,000 UNITS/10 ML VIAL ONE (10:16)
[2021-01-31] MEDS ORDERED: SODIUM CHLORIDE 0.9% 500 ML 500 ML ONE (11:12)
[2021-01-31] MEDS ORDERED: ceFAZolin/Water 2 GM/20 ML 2 GM/20 ML SYRINGE IV ONE (11:22)
[2021-01-31] MEDS: MIDAZOLAM 2 MG/2 ML INJ ONE ×2 (11:35→11:40)
[2021-01-31] MEDS: fentaNYL 100 MCG/2 ML INJ ONE ×2 (11:35→11:40)
[2021-01-31] MEDS ORDERED: ONDANSETRON 4 MG/2 ML INJ ONE (11:36)
[2021-01-31] MEDS: diphenhydrAMINE 50 MG/ML VIAL ONE ×2 (11:40→11:45)
[2021-01-31] MEDS ORDERED: CALCIUM CARBONATE 500 MG TAB CHEW PO NR (12:12)
--- NOTE | 2021-01-31 12:42 | Operative Report ---
Operative Report Operative Report: EXAM: Ultrasound guided access of the right arm AV graft, antegrade Fistulogram Angioplasty of the peripheral dialysis access (venous anastomosis) with a 9 mm x 60 mm angioplasty balloon DATE: 01/31/2021 UPPER LEATHER SORTER: KELSIE ALL MD INDICATION: AV graft malfunction MEDICATIONS: Please see nursing report for full details. DEVICES: 9 mm x 60 mm EverCross angioplasty balloon PROCEDURE: The risks, benefits, and alternatives of the procedure were discussed and written informed consent was obtained. The patient was transported in stable condition to the angiography suite. The patient's right arm AV graft was assessed by ultrasound and was patent. The patient was prepped and draped in a sterile fashion. Under ultrasound guidance, the right arm AV graft was accessed with a 21-gauge micropuncture needle. The area was anesthetized prior to access. 0.018 inch wire was advanced through the micropuncture needle into the fistula and then the needle was exchanged for a 5 [place] transitional dilator. The inner dilator and wire were removed and a 0.035 inch wire was advanced through the venous outflow. The transitional dilator was exchanged for a 6 [place] short sheath. Fistulogram was performed of the venous outflow and central veins. Reflux into the arterial anastomosis was performed. Digital subtraction angiography demonstrated a 70% venous anastomotic narrowing. The graft was patent. The arterial anastomosis was patent. Sonography was used prior to procedure to evaluate the access and it appeared that there was a high takeoff of a radial artery which the graft was sewn to. The high takeoff of the radial artery was hypertrophic. The radial artery proximal and distal to the anastomosis was patent. The venous outflow was patent. The central veins were patent. 9 mm x 60 mm angioplasty balloon was used to perform angioplasty of the venous anastomosis. Digital subtraction angiography was performed demonstrating less than 10% residual narrowing. The wire was removed and the site was closed with a 3-0 Vicryl suture. The sheath was then removed. Hemostasis was achieved with slight manual compression. The patient was transported from the angiography suite to the floor in stable condition. IMPRESSION: Successful peripheral dialysis access angioplasty as described above.
--- NOTE | 2021-01-31 12:45 | Event Note ---
Date: 01/31/21 After the procedure was completed, the patient began to complain of some left sided chest pain. She had no EKG changes during the procedure. The patient's pain improved when she sat upright which may suggest a reflux etiology. Discussed the situation with Dr. Turk, I ordered a twelve-lead EKG and oral antacids for the patient.
[2021-01-31] MEDS: ASPIRIN EC 81 MG TAB PO SCH (12:49)
[2021-01-31] MEDS: predniSONE 5 MG TAB PO SCH (12:49)
[2021-01-31] MEDS: carvediloL 25 MG TAB PO SCH (12:49)
[2021-01-31] MEDS: PANTOPRAZOLE 40 MG TAB PO SCH (12:50)
[2021-01-31] MEDS: HYDROXYCHLOROQUINE 200 MG TAB PO SCH (12:50)
[2021-01-31] MEDS: CLOPIDOGREL 75 MG TAB PO SCH (12:50)
[2021-01-31] MEDS: DOCUSATE SODIUM 100 MG CAP PO SCH (12:50)
[2021-01-31 12:52] VITALS: BP 113/78
== END 2021-01-31 16:03 | disposition home or self-care (01) | DRG 252 ==
LOC: ED 18:19 → IMCU 21:25 → CC1 22:27 → 4A 01-27 14:07
PROVIDERS: ADMIT Hospitalist; ATTEND Internal Medicine
PROC: 5A1D70Z Performance of Urinary Filtration, Intermittent, Less than 6 Hours Per Day (ICD-10-PCS; 2021-01-29)
PROC: 03773ZZ Dilation of Right Brachial Artery, Percutaneous Approach (ICD-10-PCS; principal; 2021-01-31)
DX: T82.898A Other specified complication of vascular prosthetic devices, implants and grafts, initial encounter (principal); J96.01 Acute respiratory failure with hypoxia; N18.6 End stage renal disease; M94.0 Chondrocostal junction syndrome [Tietze]; E87.5 Hyperkalemia; Z20.822 Contact with and (suspected) exposure to COVID-19; I13.2 Hypertensive heart and chronic kidney disease with heart failure and with stage 5 chronic kidney disease, or end stage renal disease; I24.9 Acute ischemic heart disease, unspecified; I50.9 Heart failure, unspecified; M19.90 Unspecified osteoarthritis, unspecified site; I25.10 Atherosclerotic heart disease of native coronary artery without angina pectoris; M32.9 Systemic lupus erythematosus, unspecified; E78.5 Hyperlipidemia, unspecified; D63.1 Anemia in chronic kidney disease; N25.81 Secondary hyperparathyroidism of renal origin; Z96.643 Presence of artificial hip joint, bilateral; Z79.899 Other long term (current) drug therapy; Z79.891 Long term (current) use of opiate analgesic; Z79.01 Long term (current) use of anticoagulants; Z88.8 Allergy status to other drugs, medicaments and biological substances; Z88.5 Allergy status to narcotic agent; Z99.2 Dependence on renal dialysis; Z98.891 History of uterine scar from previous surgery; Z87.891 Personal history of nicotine dependence; Z95.1 Presence of aortocoronary bypass graft; Z91.19 Patient's noncompliance with other medical treatment and regimen
CPT/HCPCS: 36415; 36902; 71046; 71275; 80048; 80053; 80074; 82962; 83880; 84132; 84484; 84703; 85025; 85610; 85730; 93005; 93306; 93990; 96374; 96375; G0378; C1725; C1751; C1769; C1894; J0690; J1170; J1200; J1644; J1815; J2250; J2405; J3010; J7040; J7512; Q9967; U0003